=== PATIENT | female | born 1940 | race Caucasian/White ===

== ENCOUNTER → 2017-08-29 13:42 | Outpatient (CLI) | payer MEDICARE, SELFPAY ==
[2017-08-29 16:16] LABS: Alanine Aminotransferase 36 U/L (12-78); Albumin Level 3.8 gm/dL (3.4-5.0); Albumin/Globulin Ratio 1.3 (1.1-1.8); Alkaline Phosphatase 70 U/L (46-116); Anion Gap 13.8 mEq/L (5-15); Aspartate Amino Transferase 39 U/L (15-37); Bilirubin,Total 0.3 mg/dL (0.2-1.0); Blood Urea Nitrogen 34 mg/dL (7-18); Calcium 9.5 mg/dL (8.5-10.1); Carbon Dioxide 27 mmol/L (21.0-32.0); Chloride 100 mmol/L (98-107); Creatinine,Serum 1.33 mg/dL (0.55-1.02); Estimated Glomerular Filt Rate 39 ml/min (>60); GFR (African American) 47 ML/MIN (>60); Glucose 101 mg/dL (74-106); Potassium 4.8 mmoL/L (3.5-5.1); Sodium 136 mmol/L (136-145); Total Protein,Serum 6.8 gm/dL (6.4-8.2)
[2017-08-29 16:46] LABS: Free T4 (Free Thyroxine) 1.19 ng/dl (0.76-1.46); Thyroid Stimulating Hormone 1.65 uIU/ml (0.358-3.740)
== END ==
PROVIDERS: Visit Provider Otolaryngology
DX: E01.0 Iodine-deficiency related diffuse (endemic) goiter (principal)
CPT/HCPCS: 36415; 80053; 84439; 84443; 93005

== ENCOUNTER → 2017-09-08 13:05 | Outpatient (CLI) | payer MEDICARE, SELFPAY ==
--- NOTE | 2017-09-08 13:06 | US_ITS ---
US thyroid HISTORY: ITS.REASON: hx hypothyroid ORDERING PHYSICIAN: Pio Silva MD PATIENT AGE: 76 years FINDINGS: The right lobe is 2.3 x 1.1 x 0.9 cm with heterogeneous echogenicity but no discrete nodule. The left lobe is 2.1 x 0.8 x 1.3 cm with heterogeneous echogenicity but no discrete nodule The isthmus has an unremarkable appearance IMPRESSION: No discrete nodule. Mild heterogeneous echogenicity of the thyroid gland
== END ==
PROVIDERS: Family Provider Family Medicine; PCP Family Medicine; Visit Provider Otolaryngology
DX: E03.9 Hypothyroidism, unspecified (principal); E01.0 Iodine-deficiency related diffuse (endemic) goiter
CPT/HCPCS: 76536

== ENCOUNTER → 2018-03-16 10:26 | Outpatient (CLI) | payer MEDICARE, SELFPAY ==
--- NOTE | 2018-03-16 10:41 | US_ITS ---
US thyroid HISTORY: ITS.REASON: enlarged thyroid ORDERING PHYSICIAN: Pio Silva MD PATIENT AGE: 77 years Comparison: 09/08/2017 FINDINGS: The right lobe is 3.7 x 1.2 x 0.9 cm. There is some heterogeneous echogenicity but no discrete nodule. The left lobe is 3.8 x 1 x 1.0 cm also showing heterogeneous echogenicity without discrete nodule. The isthmus has an unremarkable appearance. IMPRESSION: Heterogeneous echogenicity of the thyroid gland without discrete nodule or enlargement
[2018-03-16 13:12] LABS: Alanine Aminotransferase 19 U/L (12-78); Albumin Level 3.5 gm/dL (3.4-5.0); Albumin/Globulin Ratio 1.2 (1.1-1.8); Alkaline Phosphatase 64 U/L (46-116); Anion Gap 15.5 mEq/L (5-15); Aspartate Amino Transferase 20 U/L (15-37); Bilirubin,Total 0.2 mg/dL (0.2-1.0); Blood Urea Nitrogen 35 mg/dL (7-18); Calcium 8.9 mg/dL (8.5-10.1); Carbon Dioxide 25 mmol/L (21.0-32.0); Chloride 103 mmol/L (98-107); Chol/HDL Ratio 1.8 (1-3.5); Cholesterol 199 mg/dL (140-200); Creatinine,Serum 1.33 mg/dL (0.55-1.02); Estimated Glomerular Filt Rate 39 ml/min (>60); GFR (African American) 47 ML/MIN (>60); Globulin 2.9 gm/dl (1.3-3.2); Glucose 123 mg/dL (74-106); HDL Cholesterol 113 mg/dL (29-89); LDL Cholesterol 55 mg/dL (0-130); Potassium 4.5 mmoL/L (3.5-5.1); Sodium 139 mmol/L (136-145); Total Protein,Serum 6.4 gm/dL (6.4-8.2); Triglycerides 153 mg/dL (30-200); VLDL Cholesterol 31 mg/dL (0-40)
[2018-03-16 13:23] LABS: Free T4 (Free Thyroxine) 1.15 ng/dl (0.76-1.46); Thyroid Stimulating Hormone 1.47 uIU/ml (0.358-3.740)
[2018-03-17 16:13] LABS: Folate 19.2 ng/mL (>3.0)
[2018-03-17 16:15] LABS: Vitamin B12 275 pg/mL (232-1245); Vitamin D 25 Hydroxy 18.5 ng/mL (30.0-100.0)
== END ==
PROVIDERS: PCP Nurse Practitioner; Visit Provider Otolaryngology
DX: E01.0 Iodine-deficiency related diffuse (endemic) goiter (principal); E78.5 Hyperlipidemia, unspecified; I10 Essential (primary) hypertension
CPT/HCPCS: 36415; 76536; 80053; 80061; 82607; 82652; 82746; 84439; 84443

== ENCOUNTER → 2018-03-27 15:08 | Outpatient (CLI) | payer MEDICARE, SELFPAY ==
[2018-03-27 15:51] LABS: Basophils # 0.1 K/mm3 (0-0.2); Basophils % 0.9 % (0.1-2.0); Eosinophils # 0.1 K/mm3 (0.0-0.4); Eosinophils % 1.6 % (0.1-12.0); Hematocrit 35.9 % (37.0-47.0); Hemoglobin 11.5 g/dL (12.2-16.2); Lymphocytes # 3.7 K/mm3 (0.7-4.5); Lymphocytes % 53.8 % (10-50); Mean Corpuscular HGB Conc 32.1 g/dL (31.8-35.4); Mean Corpuscular Hemoglobin 29.4 pg (27.0-31.2); Mean Corpuscular Volume 91.5 fl (81-99); Monocytes # 0.4 K/mm3 (0.1-1.0); Monocytes % 6.2 % (1.7-9.3); Neutrophils # 2.6 K/mm3 (1.8-7.8); Neutrophils % 37.5 % (37.0-80.0); Platelet Count 274 K/mm3 (142-424); Red Blood Count 3.92 M/mm3 (4.20-5.40); Red Cell Distribution Width 13.6 % (11.5-17.5); White Blood Count 6.9 K/mm3 (4.8-10.8)
[2018-03-27 15:56] LABS: MANUAL DIFFERENTIAL MANUAL DIFFERENTIAL (MANUAL DIFF)
[2018-03-27 16:31] LABS: Anion Gap 14.7 mEq/L (5-15); Blood Urea Nitrogen 27 mg/dL (7-18); Carbon Dioxide 26 mmol/L (21.0-32.0); Chloride 101 mmol/L (98-107); Creatinine,Serum 1.15 mg/dL (0.55-1.02); Estimated Glomerular Filt Rate 46 ml/min (>60); GFR (African American) 55 ML/MIN (>60); Glucose 93 mg/dL (74-106); Potassium 4.7 mmoL/L (3.5-5.1); Sodium 137 mmol/L (136-145)
[2018-03-27 19:11] LABS: Eosinophils % 3 % (0-3); Lymphocytes % 33 % (10-50); Monocytes % 2 % (2-9); Neutrophils % 41 % (42-76); Platelet Estimate Normal; RBC Morphology Normal; Total Cells Counted 100
== END ==
PROVIDERS: Visit Provider Otolaryngology
DX: Z01.818 Encounter for other preprocedural examination (principal); L98.9 Disorder of the skin and subcutaneous tissue, unspecified
CPT/HCPCS: 36415; 80048; 85007; 85025; 93005

== ENCOUNTER → 2018-08-15 10:44 | Outpatient (POV) | payer MEDICARE, SELFPAY | PROVIDERS: Visit Provider Dermatology | DX: Z00.00 Encounter for general adult medical examination without abnormal findings (principal) ==

== ENCOUNTER → 2018-08-28 08:01 | Outpatient (CLI) | payer MEDICARE, SELFPAY ==
[2018-08-28 08:03] LABS: Microscopic, Urine URINE MICROSCOPIC (MICROSCOPIC)
[2018-08-28 08:45] LABS: Basophils # 0.1 K/mm3 (0-0.2); Basophils % 0.9 % (0.1-2.0); Eosinophils # 0.3 K/mm3 (0.0-0.4); Eosinophils % 3.7 % (0.1-12.0); Hematocrit 36.6 % (37.0-47.0); Lymphocytes # 3.8 K/mm3 (0.7-4.5); Lymphocytes % 52.9 % (10-50); Mean Corpuscular HGB Conc 32.7 g/dL (31.8-35.4); Mean Corpuscular Hemoglobin 30.5 pg (27.0-31.2); Mean Corpuscular Volume 93.3 fl (81-99); Mean Platelet Volume 8.9 fl (7.4-10.4); Monocytes # 0.5 K/mm3 (0.1-1.0); Monocytes % 6.6 % (1.7-9.3); Neutrophils # 2.6 K/mm3 (1.8-7.8); Neutrophils % 35.8 % (37.0-80.0); Platelet Count 300 K/mm3 (142-424); Red Blood Count 3.92 M/mm3 (4.20-5.40); White Blood Count 7.1 K/mm3 (4.8-10.8)
[2018-08-28 08:49] LABS: MANUAL DIFFERENTIAL MANUAL DIFFERENTIAL (MANUAL DIFF)
[2018-08-28 09:49] LABS: Albumin Level 3.7 gm/dL (3.4-5.0); Blood Urea Nitrogen 31 mg/dL (7-18); Calcium 9.3 mg/dL (8.5-10.1); Carbon Dioxide 28 mmol/L (21.0-32.0); Chloride 103 mmol/L (98-107); Creatinine,Serum 1.25 mg/dL (0.55-1.02); Estimated Glomerular Filt Rate 42 ml/min (>60); GFR (African American) 50 ML/MIN (>60); Glucose 89 mg/dL (74-106); Phosphorous 4.1 mg/dL (2.4-4.9); Sodium 139 mmol/L (136-145)
[2018-08-28 10:19] LABS: Appearance,Urine CLEAR (Clear); Bilirubin,Urine Negative (Negative); Blood, Urine Negative (Negative); Color,Urine YELLOW (Yellow); Eosinophils % 2 % (0-3); Glucose,Urine (UA) Negative (Negative); Ketones,Urine Negative (Negative); Leukocyte Esterase,Urine TRACE (Negative); Lymphocytes % 54 % (10-50); Monocytes % 11 % (2-9); Neutrophils % 31 % (42-76); Nitrate,Urine Negative (Negative); Platelet Estimate Normal; Protein,Urine Negative (Negative); RBC Morphology Normal; Total Cells Counted 100; Urobilinogen,Urine 0.2 EU/dl (0.2)
[2018-08-28 10:33] LABS: Bacteria,Urine Trace /lpf; RBC,Urine Occasional #/hpf (0-3)
[2018-08-28 10:34] LABS: Creatinine,Urine Random 66 mg/dL (20-320)
[2018-08-28 10:49] LABS: Total Protein,Urine Random 5.3 mg/dL (0.0-11.9)
[2018-08-29 10:14] LABS: Vitamin D 25 Hydroxy 48.2 ng/mL (30.0-100.0)
[2018-08-29 13:50] LABS: Parathyroid Hormone Intact 25 pg/mL (15-65)
== END ==
PROVIDERS: Visit Provider Internal Medicine Nephrology
DX: N18.3 Chronic kidney disease, stage 3 (moderate) (principal)
CPT/HCPCS: 36415; 80069; 81001; 82570; 82652; 83970; 84155; 85007; 85025

== ENCOUNTER → 2018-09-04 14:43 | Outpatient (POV) | payer MEDICARE, SELFPAY | PROVIDERS: Visit Provider Internal Medicine Nephrology | DX: Z00.00 Encounter for general adult medical examination without abnormal findings (principal) ==

== ENCOUNTER → 2018-09-05 07:51 | Outpatient (POV) | payer MEDICARE, SELFPAY | PROVIDERS: Visit Provider Dermatology | DX: Z00.00 Encounter for general adult medical examination without abnormal findings (principal) ==

== ENCOUNTER → 2018-10-03 12:29 | Outpatient (CLI) | payer MEDICARE, SELFPAY ==
--- NOTE | 2018-10-03 12:36 | XR_ITS ---
XR hip LT 2-3V w/pelvis HISTORY: ITS.REASON: LT HIP PAIN ORDERING PHYSICIAN: Archie Butts MD PATIENT AGE: 78 years COMPARISON: None FINDINGS: No fracture or dislocation is evident. There are mild osteoarthritic changes of the left hip. Mild osteoarthritic changes are also present involving the SI joints and symphysis pubis. No lytic or blastic change. IMPRESSION: Mild osteoarthritis
--- NOTE | 2018-10-03 12:36 | XR_ITS ---
EXAM: XR lumbar spine min 4V HISTORY: Low back pain ITS.REASON: LT HIP PAIN ORDERING PHYSICIAN: Archie Butts MD PATIENT AGE: 78 years COMPARISON: None FINDINGS: Normal alignment. No fracture or dislocation. No lytic or blastic change. Degenerative disc disease is present from L1 S1 more extensive at L2-L3 and L3-L4. There is straightening of the lumbar lordosis. No fracture or dislocation. Multiple clips overlie the anterior abdomen and there is generalized vascular calcification. Minimal lumbar scoliosis convex left IMPRESSION: Degenerative changes, no acute finding
== END ==
PROVIDERS: PCP Family Medicine; Visit Provider Family Medicine
DX: M25.552 Pain in left hip (principal)
CPT/HCPCS: 72110; 73502

== ENCOUNTER → 2018-12-08 07:13 | Outpatient (CLI) | payer MEDICARE, SELFPAY ==
[2018-12-08 07:15] LABS: Microscopic, Urine URINE MICROSCOPIC (MICROSCOPIC)
[2018-12-08 08:52] LABS: Appearance,Urine CLEAR (Clear); Bilirubin,Urine Negative (Negative); Blood, Urine TRACE-I (Negative); Color,Urine YELLOW (Yellow); Glucose,Urine (UA) Negative (Negative); Ketones,Urine Negative (Negative); Leukocyte Esterase,Urine 2+ (Negative); Nitrate,Urine Negative (Negative); PH,Urine 5.5 (5.0-8.5); Protein,Urine Negative (Negative); Specific Gravity, Urine 1.025 (1.005-1.030); Urobilinogen,Urine 0.2 EU/dl (0.2)
[2018-12-08 08:55] LABS: Basophils # 0.1 K/mm3 (0-0.2); Eosinophils # 0.3 K/mm3 (0.0-0.4); Eosinophils % 4.2 % (0.1-12.0); Hematocrit 36.3 % (37.0-47.0); Hemoglobin 11.7 g/dL (12.2-16.2); Lymphocytes # 3.7 K/mm3 (0.7-4.5); Lymphocytes % 53.9 % (10-50); Mean Corpuscular HGB Conc 32.1 g/dL (31.8-35.4); Mean Corpuscular Hemoglobin 30.1 pg (27.0-31.2); Mean Corpuscular Volume 93.9 fl (81-99); Mean Platelet Volume 9.2 fl (7.4-10.4); Monocytes # 0.5 K/mm3 (0.1-1.0); Monocytes % 7.4 % (1.7-9.3); Neutrophils # 2.3 K/mm3 (1.8-7.8); Neutrophils % 33.5 % (37.0-80.0); Platelet Count 317 K/mm3 (142-424); Red Blood Count 3.87 M/mm3 (4.20-5.40); Red Cell Distribution Width 13.1 % (11.5-17.5); White Blood Count 6.8 K/mm3 (4.8-10.8)
--- NOTE | 2018-12-08 08:57 | XR_ITS ---
XR DEXA axial skeleton HISTORY: ITS.REASON: POST MENOPAUSAL SCREENING ORDERING PHYSICIAN: Keron Hylton PATIENT AGE: 78 years COMPARISON: None FINDINGS: The BMD measured at the Right femoral neck is 1.128 g/cm squared with a T score of 0.6. This is considered Normal according to the World Health Organization criteria. Fracture risk is Low. IMPRESSION: Normal bone density with low fracture risk. Follow-up exam November 2020
[2018-12-08 09:01] LABS: Bacteria,Urine 1+ /lpf; RBC,Urine Occasional #/hpf (0-3); WBC,Urine 20-50 #/hpf (0-3)
[2018-12-08 09:04] LABS: MANUAL DIFFERENTIAL MANUAL DIFFERENTIAL (MANUAL DIFF)
[2018-12-08 09:46] LABS: Creatinine,Urine Random 81 mg/dL (20-320); Total Protein,Urine Random 15.7 mg/dL (0.0-11.9)
[2018-12-08 09:55] LABS: Albumin Level 3.5 gm/dL (3.4-5.0); Anion Gap 14.6 mEq/L (5-15); Blood Urea Nitrogen 34 mg/dL (7-18); Calcium 9.3 mg/dL (8.5-10.1); Carbon Dioxide 26 mmol/L (21.0-32.0); Chloride 105 mmol/L (98-107); Creatinine,Serum 1.22 mg/dL (0.55-1.02); Estimated Glomerular Filt Rate 43 ml/min (>60); GFR (African American) 52 ML/MIN (>60); Glucose 84 mg/dL (74-106); Phosphorous 3.9 mg/dL (2.4-4.9); Potassium 4.6 mmoL/L (3.5-5.1); Sodium 141 mmol/L (136-145)
[2018-12-08 16:55] LABS: Eosinophils % 2 % (0-3); Lymphocytes % 52 % (10-50); Monocytes % 6 % (2-9); Neutrophils % 40 % (42-76); Total Cells Counted 100
[2018-12-08 16:56] LABS: Platelet Estimate Normal; RBC Morphology Normal
== END ==
PROVIDERS: PCP Family Medicine; Visit Provider Internal Medicine Nephrology
DX: N18.3 Chronic kidney disease, stage 3 (moderate) (principal); Z78.0 Asymptomatic menopausal state; R82.90 Unspecified abnormal findings in urine
CPT/HCPCS: 36415; 77080; 80069; 81001; 82570; 84155; 85007; 85025; 87086

== ENCOUNTER → 2019-01-09 08:33 | Outpatient (POV) | payer MEDICARE, SELFPAY | PROVIDERS: Visit Provider Dermatology | DX: Z00.00 Encounter for general adult medical examination without abnormal findings (principal) ==

== ENCOUNTER → 2019-03-09 08:46 | Outpatient (CLI) | payer MEDICARE, SELFPAY ==
--- NOTE | 2019-03-09 08:50 | XR_ITS ---
PROCEDURE: XR SHOULDER LT MIN 2V CLINICAL INDICATION: shoulder pain Posttraumatic pain COMPARISON: No exams were available for comparison FINDINGS: There are mild osteoarthritic changes of the AC joint and glenohumeral joint. No acute fracture or dislocation. IMPRESSION: No acute findings. Dictated by: Farhat Meza MD 03/09/2019 09:28 Electronically signed by Farhat Meza MD in [place] 03/09/2019 09:28
== END ==
PROVIDERS: PCP Family Medicine; Visit Provider Orthopaedic Surgery
DX: M25.512 Pain in left shoulder (principal)
CPT/HCPCS: 73030

== ENCOUNTER → 2019-04-18 08:49 | Outpatient (CLI) | payer MEDICARE, SELFPAY ==
--- NOTE | 2019-04-18 08:52 | US_ITS ---
PROCEDURE: US LIVER CLINICAL INDICATION: ELEVATED LIVER ENZYMES Right upper quadrant pain COMPARISON: No exams were available for comparison FINDINGS: PANCREAS: Unremarkable. No obvious mass or abnormal fluid collection. No ductal dilatation LIVER: No focal liver lesions demonstrated. Homogeneous echogenicity. No intrahepatic biliary ductal dilatation evident. There is appropriate direction of blood flow within a non dilated portal vein RIGHT KIDNEY: Unremarkable. Normal size and echogenicity. No hydronephrosis GALLBLADDER: Prior cholecystectomy. Common bile duct is normal at 4 mm. IMPRESSION: Status post cholecystectomy otherwise negative Dictated by: Farhat Meza MD 04/18/2019 19:03 Electronically signed by Farhat Meza MD in [place] 04/18/2019 19:06
== END ==
PROVIDERS: PCP Family Medicine; Visit Provider Nurse Practitioner Family
DX: R74.8 Abnormal levels of other serum enzymes (principal)
CPT/HCPCS: 76705

== ENCOUNTER → 2019-04-20 14:03 | Outpatient (CLI) | payer MEDICARE, SELFPAY ==
--- NOTE | 2019-04-20 14:03 | MR_ITS ---
PROCEDURE: MR SHOULDER LT WO CON CLINICAL INDICATION: Shoulder Pain Left shoulder pain, injury with pain COMPARISON: XR SHOULDER LT MIN 2V from 03/09/2019 TECHNIQUE: Routine multiplanar multi echo sequences are performed without gadolinium enhancement. FINDINGS: There is complete tear of the supraspinatus tendon with mild retraction of the musculotendinous fibers. Partial tear noted of the infraspinatus tendon with some intact fibers superficially. Tendinopathy/tendinosis involves the subscapularis tendon with possible partial tear. Teres minor tendon is intact. No obvious labral tear. Subarticular cystic changes involve the glenoid. The bicipital tendon is in place. There is a small shoulder joint effusion. There is moderate acromioclavicular arthropathy with mild subacromial stenosis. There is a small amount of fluid in the subacromial region. IMPRESSION: Acromioclavicular arthropathy with subacromial stenosis with complete tear of the supraspinatus tendon, partial tear of the infraspinatus tendon and subscapularis tendon with small shoulder joint effusion and osteoarthritic changes of the glenohumeral joint Dictated by: Farhat Meza MD 04/21/2019 08:11 Electronically signed by Farhat Meza MD in [place] 04/21/2019 08:11
== END ==
PROVIDERS: PCP Family Medicine; Visit Provider Orthopaedic Surgery
DX: M25.512 Pain in left shoulder (principal)
CPT/HCPCS: 73221

== ENCOUNTER 2019-05-24 10:00 | Outpatient (RCR) | payer MEDICARE, SELFPAY ==
--- NOTE | 2019-03-13 11:45 | HMH.OTOPEV ---
OT Inpatient Evaluation Rehab OT Outpatient Eval Start: 03/13/19 11:29 Freq: Status: Active Protocol: Document 03/13/19 11:29 TFRY (Rec: 03/13/19 11:45 TFRY [id number]) Electronically Signed By Salma Floyd OT 03/13/19 11:29 Outpatient Therapy Subjective History Subjective History This is a 78 year old right handed female referred to occuaptional therapy for left shoulder pain. Patient reports that she fell on her left shoulder approximately 6 weeks ago. Chief Complaint Pain Symptom Type Ache,Dull Symptoms Relieved By Prescription Meds Symptoms Aggravated By Physical Activity Prior Functional Limitations None,Dressing,Sleeping Current Functional Limitations Lifting,Housework Symptom Description Constant but Variable Level of pain today (0-10) 1 Pain scale - at its best (0-10) 1 Pain scale - at its worst (0-10) 7 Shoulder/Elbow Eval Shoulder Objective Measurements Palpation Tenderness tenderness shoulder exam standard left tenderness over the bicipital tendon left shoulder exam standard Shoulder ROM Left Shoulder Abduction Active Range of 55 Motion (degrees) Shoulder Abduction Passive Range of 80 Motion (degrees) Shoulder Flexion Active Range of Motion 80 (degrees) Query Text: Shoulder Flexion Passive Range of Motion 130 (degrees) Shoulder External Rotation Active Range 35 of Motion (degrees) Shoulder External Rotation Passive Range 50 of Motion (degrees) Shoulder Internal Rotation Active Range WFL of Motion (degrees) Shoulder Internal Rotation Passive Range 70 of Motion (degrees) pain with active ROM shoulder exam left standard pain with passive ROM shoulder exam left standard decreased ROM shoulder exam standard left Shoulder MMT Shoulder Abduction Strength Grade 3+ Fair+ Shoulder Extension Strength Grade 3+ Fair+ Shoulder Flexion Strength Grade 3+ Fair+ Shoulder Horizontal Abduction Strength 3+ Fair+ Grade Shoulder Horizontal Adduction Strength 3+ Fair+ Grade Shoulder External Rotation Strength 3+ Fair+ Grade Shoulder Internal Rotation Strength 3+ Fair+ Grade Shoulder Strength Patient Testing Sitting Position Shoulder Special Tests Shoulder Empty Can (Supraspinatus) Test Negative Left Shoulder Izquierdo-José Miguel Impingement Positive Left Test
--- NOTE | 2019-04-17 10:59 | HMH.RHREAS ---
Rehab Reassessment Rehab OP Re-assessment Start: 04/17/19 10:45 Freq: Status: Active Protocol: Document 04/17/19 10:45 TFRY (Rec: 04/17/19 10:58 TFRY [id number]) Electronically Signed By Salma Floyd OT 04/17/19 10:45 Rehab Re-assessment Subjective Subjective It is 80% better. Objective Objective Notes Patient seen this date for skilled occupational therapy. See exercise flow sheet for exercises. Reassessment of left shoulder AROM: flexion - 0-155; abduction - 0-105; internal rotation - 0-55; external rotation - WFL. PROM: Flexion - WFL; abduction - WFL. Left shoulder strength - 3+/4- throughout. Patient reports less pain when performing ADL's. Reports pain a 5 at worse in left shoulder; on average 2/3. Assessment Progress Assessment Progressing as Expected Assessment Notes Patient is making progress toward goals and appears to be complaint with HEP. Patient goals met STG's - 6/9 LTG's - 6 Goals Not Met strength and pain Plan Plan Continue occupational therapy working on meeting unmet goals and improving strength and decreasing pain. Frequency of Therapy 2x a week Duration of therapy 4 weeks Time and Billing Re-Eval Time 5 Re-Eval Billing Units 0 PHYSICIAN CERTIFICATION: I certify the specified therapy services for Dianne Mcneal are required, authorized, and reviewed every 30 days.
--- NOTE | 2019-05-24 10:48 | HMH.RHREAS ---
Rehab Reassessment Rehab OP Re-assessment Start: 04/17/19 10:45 Freq: Status: Active Protocol: Document 05/24/19 09:48 BO (Rec: 05/24/19 10:48 BO [id number]) Electronically Signed By Jona Lyn OT 05/24/19 09:48 Rehab Re-assessment Subjective Subjective I go to the doctor on Tuesday. Objective Objective Notes Pt continues to be seen twice a week in order to engage in L shoulder AROM/AAROM/ Strengthening exercises. Pt also received PROM manual stretching in all planes at left shoulder. Pt does receive modalities in order to decrease pain/inflammation. Assessment Progress Assessment Progressing as Expected Assessment Notes Pt reports she does feel she has improved slightly since beginning therapy. Pt's pain at is worst is now a 3/10 and she does have periods of no pain at all. Pt returns to her doctor on the following tuesday to be re-assessed. Current AROM Flex: 140 degrees Abd: 85 degrees ER: 24 degrees IR: 40 degrees Current MMT: Flex: 4- Abd: 3+ ER: 3+ IR: 3+ Patient goals met n/a Goals Not Met AROM, strength, and pain Revised Goals Continue progressing towards assisted goals written on initial evaluation. Plan Plan Continue with OT plan of care at this time. Frequency of Therapy 2x's a week Duration of therapy 4 more weeks Time and Billing Re-Eval Time 15 Re-Eval Billing Units 1 PHYSICIAN CERTIFICATION: I certify the specified therapy services for Dianne Mcneal are required, authorized, and reviewed every 30 days.
== END 2019-05-24 10:05 | disposition home or self-care (01) ==
LOC: OT 10:00
PROVIDERS: Visit Provider Orthopaedic Surgery
DX: M25.512 Pain in left shoulder (principal)
CPT/HCPCS: 97014; 97110; 97140; 97164; 97165; 97168; G0283

== ENCOUNTER → 2019-06-01 07:42 | Outpatient (CLI) | payer MEDICARE, SELFPAY ==
[2019-06-01 08:34] LABS: INR 0.98 (0.9-1.1); Prothrombin Time 10.2 seconds (9.4-11.8)
[2019-06-01 10:45] LABS: Alanine Aminotransferase 23 U/L (12-78); Albumin Level 3.4 gm/dL (3.4-5.0); Albumin/Globulin Ratio 1.3 (1.1-1.8); Alkaline Phosphatase 52 U/L (46-116); Anion Gap 14.4 mEq/L (5-15); Aspartate Amino Transferase 22 U/L (15-37); Bilirubin,Total 0.3 mg/dL (0.2-1.0); Blood Urea Nitrogen 35 mg/dL (7-18); Calcium 8.9 mg/dL (8.5-10.1); Carbon Dioxide 27 mmol/L (21.0-32.0); Chloride 104 mmol/L (98-107); Creatinine,Serum 1.29 mg/dL (0.55-1.02); Estimated Glomerular Filt Rate 40 ml/min (>60); Ferritin 76 ng/mL (8-388); GFR (African American) 48 ML/MIN (>60); Globulin 2.7 gm/dl (1.3-3.2); Glucose 91 mg/dL (74-106); Potassium 4.4 mmoL/L (3.5-5.1); Sodium 141 mmol/L (136-145); Total Protein,Serum 6.1 gm/dL (6.4-8.2)
[2019-06-02 04:08] LABS: Iron 87 ug/dL (27-139); UIBC 263 ug/dL (118-369)
[2019-06-02 09:20] LABS: Ceruloplasmin 23.6 mg/dL (19.0-39.0); Immunoglobulin A, Qn 161 mg/dL (64-422); Immunoglobulin G, Qn 749 mg/dL (700-1600)
[2019-06-02 11:04] LABS: Immunoglobulin M, Qn 78 mg/dL (26-217)
[2019-06-02 11:05] LABS: Iron Saturation 25 % (15-55)
[2019-06-02 18:19] LABS: Actin (Smooth Muscle) Antibody 4 Units (0-19); Deamidated Gliadin Abs, IgA 2 units (0-19); Deamidated Gliadin Abs, IgG 2 units (0-19); Liver-Kidney Microsomal Ab <1.0 Units (0.0-20.0); Mitochondrial (M2) Antibody <20.0 Units (0.0-20.0); Tissue Transglutaminase IgA Ab <2 U/mL (0-3); Tissue Transglutaminase IgG Ab <2 U/mL (0-5)
[2019-06-05 05:12] LABS: ALT (SGPT) P5P 18 IU/L (0-40); AST (SGOT) P5P 28 IU/L (0-40); Alpha 2-Macroglobulins, Qn 193 mg/dL (110-276); Apolipoprotein A-1 249 mg/dL (116-209); Bilirubin, Total 0.2 mg/dL (0.0-1.2); Cholesterol, Total 188 mg/dL (100-199); Fibrosis Score 0.06 (0.00-0.21); GGT 33 IU/L (0-60); Glucose 88 mg/dL (65-99); Haptoglobin 135 mg/dL (42-346); NASH Score 0.25 (0.25); Steatosis Score 0.33 (0.00-0.30); Triglycerides 108 mg/dL (0-149)
[2019-06-05 05:30] LABS: Angiotensin Converting Enzyme <15 U/L (14-82); Endomysial IgA Antibody Negative (Negative)
[2019-06-06 11:56] LABS: Reticulin IgA Antibody Negative titer (Neg:<1:2.5)
[2019-06-07 17:55] LABS: Alpha-1-Antitrypsin 145 mg/dL (101-187)
[2019-06-29 14:01] LABS: Antinuclear Antibodies (ANA) Negative
== END ==
PROVIDERS: Visit Provider Nurse Practitioner Family
DX: R94.5 Abnormal results of liver function studies (principal); R19.4 Change in bowel habit; D64.9 Anemia, unspecified
CPT/HCPCS: 36415; 80053; 81256; 82103; 82104; 82164; 82390; 82728; 82784; 83516; 83540; 83550; 85610; 86038; 86255; 86256; 86376

== ENCOUNTER 2019-07-05 08:30 | Outpatient (RCR) | payer MEDICARE, SELFPAY | END 2019-07-05 08:35 | disposition home or self-care (01) | LOC: OT 08:30 | PROVIDERS: PCP Family Medicine; Visit Provider Orthopaedic Surgery | DX: S46.012A Strain of muscle(s) and tendon(s) of the rotator cuff of left shoulder, initial encounter (principal) | CPT/HCPCS: 97014; 97110; 97140; 97166; G0283 ==

== ENCOUNTER → 2019-08-22 09:11 | Outpatient (CLI) | payer MEDICARE, SELFPAY ==
[2019-08-22 11:14] LABS: Chloride 102 mmol/L (98-107); Sodium 136 mmol/L (136-145)
[2019-08-22 11:16] LABS: Alanine Aminotransferase 19 U/L (12-78); Alkaline Phosphatase 68 U/L (38-126); Aspartate Amino Transferase 29 U/L (14-36); Bilirubin,Total 0.2 mg/dl (0.2-1.3); Blood Urea Nitrogen 37 mg/dl (7-17); Carbon Dioxide 26 mmol/L (22.0-30.0); Estimated Glomerular Filt Rate 40 ml/min (>60); GFR (African American) 48 ML/MIN (>60)
[2019-08-22 11:17] LABS: Albumin/Globulin Ratio 1.7 (1.1-1.8); Calcium 9.7 mg/dl (8.4-10.2); Globulin 2.4 g/dL (1.3-3.2); Glucose 94 mg/dl (74-100); Total Protein,Serum 6.4 g/dl (6.3-8.2)
== END ==
PROVIDERS: Visit Provider Nurse Practitioner Family
DX: R94.5 Abnormal results of liver function studies (principal)
CPT/HCPCS: 36415; 80053

== ENCOUNTER → 2019-09-10 15:36 | Outpatient (CLI) | payer MEDICARE, SELFPAY ==
[2019-09-10 15:43] LABS: Microscopic, Urine URINE MICROSCOPIC (MICROSCOPIC)
[2019-09-10 16:14] LABS: Basophils # 0.1 K/mm3 (0-0.2); Basophils % 0.6 % (0.1-2.0); Eosinophils % 0.5 % (0.1-12.0); Hemoglobin 12.6 g/dL (12.2-16.2); Lymphocytes # 2.2 K/mm3 (0.7-4.5); Lymphocytes % 26.4 % (10-50); Mean Corpuscular HGB Conc 31.6 g/dL (31.8-35.4); Mean Corpuscular Hemoglobin 28.9 pg (27.0-31.2); Mean Corpuscular Volume 91.5 fl (81-99); Mean Platelet Volume 8.7 fl (7.4-10.4); Monocytes # 0.6 K/mm3 (0.1-1.0); Monocytes % 7.6 % (1.7-9.3); Neutrophils # 5.3 K/mm3 (1.8-7.8); Neutrophils % 64.9 % (37.0-80.0); Platelet Count 338 K/mm3 (142-424); Red Blood Count 4.38 M/mm3 (4.20-5.40); White Blood Count 8.2 K/mm3 (4.8-10.8)
[2019-09-10 16:22] LABS: Appearance,Urine CLEAR (Clear); Bilirubin,Urine Negative (Negative); Blood, Urine 1+ (Negative); Color,Urine YELLOW (Yellow); Glucose,Urine (UA) Negative (Negative); Ketones,Urine Negative (Negative); Leukocyte Esterase,Urine Negative (Negative); Nitrate,Urine Negative (Negative); PH,Urine 5.5 (5.0-8.5); Protein,Urine Negative (Negative); Specific Gravity, Urine 1.025 (1.005-1.030); Urobilinogen,Urine 0.2 EU/dl (0.2)
[2019-09-10 17:00] LABS: Bacteria,Urine Trace /lpf; RBC,Urine Occasional #/hpf (0-3)
[2019-09-10 18:47] LABS: Chloride 100 mmol/L (98-107); Potassium 4.1 mmoL/L (3.5-5.1); Sodium 134 mmol/L (136-145)
[2019-09-10 18:49] LABS: Alanine Aminotransferase 328 U/L (12-78); Aspartate Amino Transferase 240 U/L (14-36); Blood Urea Nitrogen 22 mg/dl (7-17); Estimated Glomerular Filt Rate 48 ml/min (>60); GFR (African American) 58 ML/MIN (>60)
[2019-09-10 18:50] LABS: Albumin Level 4.6 g/dl (3.5-5.0); Albumin/Globulin Ratio 1.6 (1.1-1.8); Alkaline Phosphatase 165 U/L (38-126); Anion Gap 13.1 mEq/L (5-15); Bilirubin,Total 0.7 mg/dl (0.2-1.3); Calcium 10.2 mg/dl (8.4-10.2); Carbon Dioxide 25 mmol/L (22.0-30.0); Globulin 2.8 g/dL (1.3-3.2); Glucose 122 mg/dl (74-100); Total Protein,Serum 7.4 g/dl (6.3-8.2)
[2019-09-11 14:44] LABS: Amylase 76 U/L (30-110); Lipase 193 U/L (23-300)
== END ==
PROVIDERS: Family Medicine; Visit Provider Nurse Practitioner Family
DX: R10.11 Right upper quadrant pain (principal); L29.9 Pruritus, unspecified; R74.8 Abnormal levels of other serum enzymes
CPT/HCPCS: 36415; 80053; 81001; 82150; 83690; 85025

== ENCOUNTER → 2019-09-12 10:57 | Outpatient (CLI) | payer MEDICARE, SELFPAY ==
--- NOTE | 2019-09-12 11:03 | CT_ITS ---
PROCEDURE: CT ABDOMEN without and with contrast CLINICAL INDICATION: RUQ PAIN,ELEVATED LIVER ENZYMES Right upper quadrant pain COMPARISON: ABDPELW/O CT ABD PELVIS W/O CONTRAST from 10/20/2013 TECHNIQUE: IV Contrast: 75ML OPTIRAY 350 Oral Contrast none Axial images obtained with sagittal and coronal reformats. All CT scans at the facility use one or more dose reduction, viz: automated exposure control, ma/kV adjustment per patient size (including targeted exams where dose is matched to indication, i.e. head), or iterative reconstruction technique. FINDINGS: LOWER THORAX: There are some mild atelectatic/fibrotic changes in the lung bases. Coronary artery calcifications and/or stents are noted. ABDOMEN & PELVIS: There are post cholecystectomy changes with mild biliary ectasia. The spleen, adrenal glands, and pancreas have an unremarkable appearance. There is a small hiatal hernia. No renal or ureteral calculi evident on the unenhanced images. Postsurgical changes of the anterior abdominal wall. No evidence of appendicitis. No intestinal obstruction or free air. There are postsurgical changes of the stomach with prior gastrojejunostomy. There is a mild amount fluid is present within the stomach. No intestinal obstruction or free air. The pelvis is not included on the exam. There is sclerosis of the SI joints on both sides. 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 It is difficult to assess the degree of stenosis. There is calcific plaque at the ostium of the celiac artery. Moderate stenosis of the SMA of greater than 50 percent is noted IMPRESSION: 1. Prior gastric bypass with gastrojejunostomy. There is a mild amount of fluid in the stomach. 2. 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 There is calcific plaque at this area which precludes visualization of the underlying lumen. There is high-grade stenosis of the ostium of the SMA of greater than [address] angiogram may provide further evaluation the 3. Prior cholecystectomy with mild biliary ectasia sign Dictated by: Farhat Meza MD 09/13/2019 14:33 Electronically signed by Farhat Meza MD in [place] 09/13/2019 14:33
== END ==
PROVIDERS: PCP Family Medicine; Visit Provider Family Medicine
DX: R10.11 Right upper quadrant pain (principal); R74.8 Abnormal levels of other serum enzymes
CPT/HCPCS: 74177; Q9967

== ENCOUNTER → 2019-09-25 10:04 | Outpatient (CLI) | payer MEDICARE, SELFPAY ==
--- NOTE | 2019-09-25 10:12 | CT_ITS ---
Procedure: CT ANGIO ABDOMEN CLINICAL HISTORY: CELIAC ARTERY STENOSIS Abdominal pain, celiac artery stenosis COMPARISON: CT ABDOMEN PELVIS W CON from 09/12/2019 TECHNIQUE: IV Contrast: 100ml Optiray 350 Axial images obtained with sagittal and coronal reformats. All CT scans at the facility use one or more dose reduction, viz: automated exposure control, ma/kV adjustment per patient size (including targeted exams where dose is matched to indication, i.e. head), or iterative reconstruction technique. FINDINGS: Coronary artery calcifications are present. Atherosclerotic changes involve the aortoiliac vessels. No evidence of aneurysm. There is severe stenosis of the ostium of the celiac artery with calcific plaque at this region and poststenotic dilatation. This is a 99 percent stenotic lesion versus occlusive lesion. The moderate stenosis involves the ostium of the superior mesenteric artery 60 percent. There are mild atheromatous changes of the distal aspect of the celiac and SMA with luminal irregularities but no severe stenosis distally. There are 2 right renal arteries. A small right renal arteries noted superiorly with the dominant right renal artery just inferior to this region with no significant stenosis apparent. No significant stenosis of the left renal artery although there is some calcific plaque near the ostium. The The iliac arteries show scattered plaque but no significant stenosis of the common or external iliac arteries. The inferior mesenteric artery is patent. The Non angiography findings: Small hiatal hernia. Prior cholecystectomy with biliary ectasia. Nonspecific bowel gas pattern with some stool it filled loops of small bowel but no significant dilatation. Degenerative changes are present in the lumbar spine.. IMPRESSION: 1. 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 There is post a not dilatation 2. 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
== END ==
PROVIDERS: PCP Family Medicine; Visit Provider Family Medicine
DX: I77.4 Celiac artery compression syndrome (principal)
CPT/HCPCS: 74175; Q9967

== ENCOUNTER 2019-11-15 11:00 | Outpatient (RCR) | payer MEDICARE, SELFPAY ==
--- NOTE | 2019-09-25 13:38 | HMH.PTOPEV ---
PT Outpatient Evaluation Rehab PT Outpatient Evaluation Start: 09/25/19 13:09 Freq: Status: Active Protocol: Document 09/25/19 13:09 CLIFF (Rec: 09/25/19 13:37 CLIFF [id number]) Electronically Signed By Kory Ramirez, PT 09/25/19 13:09 Outpatient Therapy Subjective History Subjective History Pt reports insidious onset L sided LBP beginning ~3 weeks ago, and reports progressed with L LE s/s from L hip to ankle. Pt reports weakness in LLE and pain, reports previous CT scan revealed OA IN THE LUMBAR REGION. Chief Complaint Pain,Stiff,Paresthesia, Weakness Symptom Type Ache,Sharp,Dull Symptoms Relieved By Rest/Positioning,Heat Symptoms Aggravated By Standing,Bending/Stooping, Walking,Lifting Prior Functional Limitations None Current Functional Limitations Lifting,Housework,Standing, Walking Symptom Description Constant but Variable Level of pain today (0-10) 5 Pain scale - at its best (0-10) 5 Pain scale - at its worst (0-10) 9 Lumbopelvic Eval Posture Thoracic Spine Posture Standing Position Flattened Lumbar Spine Posture Standing Position Flattened Assistive device Assistive Devices None / NA Gait Observation General Gait Pattern Observation Antalgic Gait Palapation tenderness left lumbar spinal tenderness Yes: 3/4 paraspinal tenderness Yes: 3/4 buttock tenderness Yes: 3/4 Lumbar/Sacral Palpation Findings Tenderness,Muscle Guarding Accessory Movement L-spine Vertebrae Accessory Movements Central P/A [place] that Elicit Symptoms L3 bilateral L4 bilateral L5 bilateral Range of Motion Lumbar Spine Active Flexion Range of 0-80 Motion (degrees) Lumbar Spine Active Extension Range of 0-10 Motion (degrees) Left Lumbar Spine Lateral Flexion Active 0-20 Range of Motion (degrees) Right Lumbar Spine Lateral Flexion 0-30 Active Range of Motion (degrees) Lumbar Spine ROM Limitations Pain Manual Muscle Test Right Knee Extension Strength Grade 5 Normal Knee Flexion Strength Grade 4 Good Hip Flexion Strength Grade 4 Good Extensor Hallucis Longus Strength Grade 5 Normal Ankle Dorsiflexion Strength Grade 5 Normal Gastronemius/Soleus Strength Grade 5 Normal Left Knee Extension Strength Grade 4 Good Knee Flexion Strength Grade 4- Good- Hip Flexion Strength Grade 4- Good- Extensor
--- NOTE | 2019-10-29 11:00 | HMH.RHREAS ---
Rehab Reassessment Rehab OP Re-assessment Start: 10/29/19 10:50 Freq: Status: Active Protocol: Document 10/29/19 10:51 CLIFF (Rec: 10/29/19 11:00 CLIFF [id number]) Electronically Signed By Kory Ramirez, PT 10/29/19 10:51 Rehab Re-assessment Subjective Subjective PT REPORTS IMPROVED LBP @4/10 ON VAS W/ACTIVITY, AND FEELS 80-90% BETTER OVERALL SINCE I EVAL Objective Objective Notes AROM: L-SPINE FLX 0-80, EXT 0- 15, B SB 0-20 MMT: L HIP FLX 4/5, L KNEE FLX 4/5 TTP: L PIRI MM 2/, L LUMBAR PARA 2/4 Assessment Progress Assessment Progressing as Expected Assessment Notes IMPROVED ROM, STRENGTH, AND TTP Patient goals met STG'S 10/07 LTG'S 05/09 Goals Not Met STG'S 06/09, LTG'S 10/07 Plan Plan PT TO CONT. W/SKILLED P.T. TO MAKE FURTHER IMPROVEMENTS IN AROM, STRENGTH, AND TTP TO ALLOW FOR OPTIMAL FUNCTION Frequency of Therapy 1-2X/WK Duration of therapy 3-4WKS Time and Billing Re-Eval Time 15 Re-Eval Billing Units 0 PHYSICIAN CERTIFICATION: I certify the specified therapy services for Dianne Mojica Withrubin are required, authorized, and reviewed every 30 days.
== END 2019-11-15 11:05 | disposition home or self-care (01) ==
LOC: PT 11:00
PROVIDERS: PCP Family Medicine; Visit Provider Nurse Practitioner Family
DX: M54.32 Sciatica, left side (principal)
CPT/HCPCS: 97010; 97012; 97014; 97035; 97110; 97163; 97164; G0283

== ENCOUNTER → 2019-11-16 10:47 | Outpatient (CLI) | payer MEDICARE, SELFPAY ==
[2019-11-16 14:38] LABS: Coronavirus 19 IgG Antibody Negative (Negative); Coronavirus 19 IgM Antibody Negative (Negative)
== END ==
PROVIDERS: PCP Family Medicine; Visit Provider Nurse Practitioner Family
DX: Z03.818 Encounter for observation for suspected exposure to other biological agents ruled out (principal)
CPT/HCPCS: 86328

== ENCOUNTER → 2019-11-22 07:43 | Outpatient (CLI) | payer MEDICARE, SELFPAY ==
[2019-11-22 09:03] LABS: Basophils # 0.1 K/mm3 (0-0.2); Basophils % 0.7 % (0.1-2.0); Eosinophils # 0.2 K/mm3 (0.0-0.4); Hematocrit 37.5 % (37.0-47.0); Hemoglobin 12.6 g/dL (12.2-16.2); Lymphocytes % 40.1 % (10-50); Mean Corpuscular HGB Conc 33.5 g/dL (31.8-35.4); Mean Corpuscular Hemoglobin 31.2 pg (27.0-31.2); Mean Corpuscular Volume 93.2 fl (81-99); Mean Platelet Volume 9.1 fl (7.4-10.4); Monocytes # 0.5 K/mm3 (0.1-1.0); Monocytes % 7.2 % (1.7-9.3); Neutrophils # 3.7 K/mm3 (1.8-7.8); Platelet Count 276 K/mm3 (142-424); Red Blood Count 4.02 M/mm3 (4.20-5.40); Red Cell Distribution Width 13.1 % (11.5-17.5); White Blood Count 7.5 K/mm3 (4.8-10.8)
[2019-11-22 09:13] LABS: Prothrombin Time 10.3 seconds (9.4-11.8)
[2019-11-22 14:33] LABS: Chloride 102 mmol/L (98-107); Potassium 4.6 mmoL/L (3.5-5.1); Sodium 139 mmol/L (136-145)
[2019-11-22 14:35] LABS: Alanine Aminotransferase 19 U/L (12-78); Aspartate Amino Transferase 32 U/L (14-36); Blood Urea Nitrogen 31 mg/dl (7-17); Estimated Glomerular Filt Rate 48 ml/min (>60); GFR (African American) 58 ML/MIN (>60)
[2019-11-22 14:36] LABS: Albumin Level 4.1 g/dl (3.5-5.0); Albumin/Globulin Ratio 1.7 (1.1-1.8); Alkaline Phosphatase 58 U/L (38-126); Anion Gap 13.6 mEq/L (5-15); Bilirubin,Total 0.3 mg/dl (0.2-1.3); Calcium 9.6 mg/dl (8.4-10.2); Carbon Dioxide 28 mmol/L (22.0-30.0); Globulin 2.4 g/dL (1.3-3.2); Glucose 95 mg/dl (74-100); Total Protein,Serum 6.5 g/dl (6.3-8.2)
[2019-11-22 15:11] LABS: Ferritin 34.3 ng/ml (11.1-264)
== END ==
PROVIDERS: Visit Provider Internal Medicine
DX: K55.9 Vascular disorder of intestine, unspecified (principal); R79.89 Other specified abnormal findings of blood chemistry
CPT/HCPCS: 36415; 80053; 82728; 85025; 85610

== ENCOUNTER → 2019-12-05 08:53 | Outpatient (CLI) | payer MEDICARE, SELFPAY ==
--- NOTE | 2019-12-05 08:59 | MR_ITS ---
PROCEDURE: MR ABDOMEN WO/W CON CLINICAL INDICATION: Pt has had an increase in liver enzymes. Gb removed x6yrs go. Episodes of flue like symptoms and itching. Nausia, vomiting, and diarrhea. [id number]. 15ml prohance given. Lot: [id number] exp: Oct 2021 bun: 31 cre: 1.1 gfr: [address] 09-12-19 COMPARISON: CT CT ANGIO ABDOMEN from 09/25/2019 TECHNIQUE: Routine multiplanar multi echo sequences are performed without and with gadolinium enhancement.15ml prohance given. Lot: [id number] exp: Oct 2021 bun: 31 cre: 1.1 gfr: [address] 09-12-19. MRCP images also performed FINDINGS: Status post cholecystectomy. The liver, spleen, pancreas, and adrenal glands have an unremarkable appearance. Unremarkable appearing kidneys. No enhancing lesions. There has been a prior cholecystectomy. Status post cholecystectomy. There is mild dilatation of the common hepatic duct measuring up to 9.5 mm. There has been a prior cholecystectomy with a long cystic duct. The cystic duct joins the common hepatic duct distally. There are filling defects within the distal aspect of the cystic duct and within the distal common bile duct consistent with choledocholithiasis. Pancreatic duct is normal in caliber. IMPRESSION: Prior cholecystectomy. The cystic duct is long and inserts distally on the common hepatic duct with multiple filling defects of this distal aspect of the cystic duct and common bile duct consistent with stones within the cystic duct and choledocholithiasis with intra and extrahepatic biliary ductal dilatation Dictated b Farhat Meza MD 12/10/2019 08:52 Farhat Meza MD in [place] 12/10/2019 08:52
== END ==
PROVIDERS: PCP Family Medicine; Visit Provider Internal Medicine
DX: K55.9 Vascular disorder of intestine, unspecified (principal)
CPT/HCPCS: 74183; 76376; A9576

== ENCOUNTER → 2020-02-27 09:55 | Outpatient (CLI) | payer MEDICARE, SELFPAY ==
[2020-02-27 10:00] LABS: Microscopic, Urine URINE MICROSCOPIC (MICROSCOPIC)
[2020-02-27 10:38] LABS: Creatinine,Urine Random 80 mg/dL (Not Estab.)
[2020-02-27 10:47] LABS: Basophils # 0.1 K/mm3 (0-0.2); Basophils % 0.5 % (0.1-2.0); Eosinophils # 0.4 K/mm3 (0.0-0.4); Eosinophils % 3.3 % (0.1-12.0); Hematocrit 40.4 % (37.0-47.0); Hemoglobin 13.2 g/dL (12.2-16.2); Lymphocytes # 3.9 K/mm3 (0.7-4.5); Lymphocytes % 36.5 % (10-50); Mean Corpuscular HGB Conc 32.6 g/dL (31.8-35.4); Mean Corpuscular Hemoglobin 29.9 pg (27.0-31.2); Mean Corpuscular Volume 91.7 fl (81-99); Monocytes # 0.9 K/mm3 (0.1-1.0); Monocytes % 8.5 % (1.7-9.3); Neutrophils # 5.5 K/mm3 (1.8-7.8); Neutrophils % 51.2 % (37.0-80.0); Platelet Count 303 K/mm3 (142-424); Red Cell Distribution Width 13.8 % (11.5-17.5); White Blood Count 10.7 K/mm3 (4.8-10.8)
[2020-02-27 11:00] LABS: Chloride 103 mmol/L (98-107); Potassium 4.2 mmoL/L (3.5-5.1); Sodium 138 mmol/L (136-145)
[2020-02-27 11:01] LABS: Albumin Level 4.2 g/dl (3.5-5.0)
[2020-02-27 11:02] LABS: Appearance,Urine CLEAR (Clear); Bilirubin,Urine Negative (Negative); Blood, Urine Negative (Negative); Color,Urine YELLOW (Yellow); Glucose,Urine (UA) Negative (Negative); Ketones,Urine Negative (Negative); Leukocyte Esterase,Urine TRACE (Negative); Nitrate,Urine Negative (Negative); PH,Urine 5.5 (5.0-8.5); Protein,Urine Negative (Negative); Urobilinogen,Urine 0.2 EU/dl (0.2)
[2020-02-27 11:03] LABS: Anion Gap 14.2 mEq/L (5-15); Blood Urea Nitrogen 28 mg/dl (7-17); Carbon Dioxide 25 mmol/L (22.0-30.0); Estimated Glomerular Filt Rate 48 ml/min (>60); GFR (African American) 58 ML/MIN (>60); Phosphorous 3.6 mg/dl (2.5-4.5)
[2020-02-27 11:04] LABS: Calcium 9.9 mg/dl (8.4-10.2); Glucose 108 mg/dl (74-100)
[2020-02-27 11:23] LABS: 25-OH Vitamin D, Total 34.3 ng/mL (30-100)
[2020-02-27 11:43] LABS: Bacteria,Urine 2+ /lpf; RBC,Urine Occasional #/hpf (0-3)
== END ==
PROVIDERS: Visit Provider Internal Medicine Nephrology
DX: N18.30 Chronic kidney disease, stage 3 unspecified (principal); E55.9 Vitamin D deficiency, unspecified; R82.90 Unspecified abnormal findings in urine
CPT/HCPCS: 36415; 80069; 81001; 82306; 82570; 84155; 85025; 87086

== ENCOUNTER → 2020-03-03 10:21 | Outpatient (POV) | payer MEDICARE, SELFPAY | PROVIDERS: Visit Provider Internal Medicine Nephrology | DX: Z00.00 Encounter for general adult medical examination without abnormal findings (principal) ==

== ENCOUNTER → 2020-03-21 07:35 | Outpatient (CLI) | payer MEDICARE, SELFPAY ==
[2020-03-21 10:11] LABS: Chol/HDL Ratio 1.8 (1-3.5); Cholesterol 187 mg/dl (140-200); HDL Cholesterol 105 mg/dl (40-60); Triglycerides 138 mg/dl (30-150); VLDL Cholesterol 28 mg/dL (0-40)
[2020-03-21 10:25] LABS: Direct LDL Cholesterol 64.06 mg/dL (100-129)
== END ==
PROVIDERS: PCP Family Medicine; Visit Provider Nurse Practitioner Acute Care
DX: E78.2 Mixed hyperlipidemia (principal)
CPT/HCPCS: 36415; 80061

== ENCOUNTER → 2020-04-04 08:18 | Outpatient (CLI) | payer MEDICARE, SELFPAY ==
--- NOTE | 2020-04-04 08:21 | MM_ITS ---
PROCEDURE: MM DIG SCREENING MAMM BI W/CAD Referring Doctor: Archie Butts Patient Age:79Y CLINICAL INDICATION: SCREENING COMPARISON: MG MY Digital Screen BILAT from 03/18/2017 MG MY Digital Screen BILAT from 03/20/2018 MG MY Digital Screen BILAT from 04/09/2019 AWAITING PRIOR FILMS FROM [facility] TECHNIQUE: Standard CC and MLO images were obtained. R2 CAD reviewed. Bilateral digital breast tomosynthesis included. Axillary CC view both breast FINDINGS: Low-density breast with diffuse fatty replacement. (mammography is most optimal screening tool in breast of this character) Stable bilateral mammogram with no dominant or suspicious mass. There is scattered calcifications in both breast but no area of significant concern. Right breast: No significant findings. Few small benign spherical calcifications not of concern Left breast: Dense somewhat linear coarse calcifications towards medial left breast most likely reflect benign secretory calcifications and can be followed in 1 year IMPRESSION: . Stable bilateral mammogram with no significant new findings. Generalized fatty replacement/low-density breast Routine follow-up recommended BI-RAD Category: 2 Benign Finding(s) FOLLOW-UP: 1YR 1 Year Follow-up (A letter has been sent to the patient regarding results of the study.) Dictated by: Asaf Webber MD 04/11/2020 10:31 Asaf Webber MD in [place] 04/11/2020 10:31
--- NOTE | 2020-04-04 08:21 | XR_ITS ---
PROCEDURE: XR DEXA AXIAL SKELETON CLINICAL HISTORY: POST MENOPAUSAL COMPARISON: No exams were available for comparison FINDINGS: The right hip BMD is 0.952 with a T-score of 0.9. The left hip BMD is 0.920 with a T-score of 0.6. The lumbar spine BMD is with a T-score of . Radius 1/3 is 0.541 with T-score -2.6 IMPRESSION: This patient is considered osteoporotic according to the World Health Organization criteria. Fracture risk is high. Treatment is advised. Based on these results a follow-up exam is recommended in 2 year. Dictated by: Farhat Meza MD 04/04/2020 18:06 Farhat Meza MD in [place] 04/04/2020 18:06
== END ==
PROVIDERS: PCP Family Medicine; Visit Provider Family Medicine
DX: Z12.31 Encounter for screening mammogram for malignant neoplasm of breast (principal); Z13.820 Encounter for screening for osteoporosis; Z78.0 Asymptomatic menopausal state
CPT/HCPCS: 77063; 77067; 77080

== ENCOUNTER → 2020-08-02 15:45 | Outpatient (CLI) | payer MEDICARE, SELFPAY ==
[2020-08-02 15:56] LABS: Adenovirus F 40/41, stool Not Detected (NotDetected); Astrovirus Not Detected (NotDetected); Campylobacter Not Detected (NotDetected); Clostridium Difficile A/B, PCR Not Detected (NotDetected); Cryptosporidium Not Detected (NotDetected); Cyclospora Cayetanesis Not Detected (NotDetected); Entamoeba histolytica Not Detected (NotDetected); Enteroaggregative E coli Not Detected (NotDetected); Enteropathogenic E coli Not Detected (NotDetected); Enterotoxigenic E coli Not Detected (NotDetected); Giardia lamblia Not Detected (NotDetected); Norovirus Not Detected (NotDetected); Plesimonas Shigalloides, PCR Not Detected (NotDetected); Rotavirus A Not Detected (NotDetected); Salmonella, PCR Not Detected (NotDetected); Sapovirus Not Detected (NotDetected); Shiga-like toxin E coli Not Detected (NotDetected); Shigella Enterovasive E coli Not Detected (NotDetected); Vibrio Cholerae Not Detected (NotDetected); Vibrio, PCR Not Detected (NotDetected); Yersinia Entercolitica, PCR Not Detected (NotDetected)
== END ==
PROVIDERS: Visit Provider Nurse Practitioner Family
DX: R10.32 Left lower quadrant pain (principal); R19.7 Diarrhea, unspecified
CPT/HCPCS: 87045; 87507

== ENCOUNTER → 2020-11-27 13:41 | Outpatient (CLI) | payer MEDICARE, SELFPAY ==
[2020-11-27 14:24] LABS: Chloride 103 mmol/L (98-107); Sodium 137 mmol/L (136-145)
[2020-11-27 14:25] LABS: Albumin Level 3.9 g/dl (3.5-5.0); Potassium 4.6 mmoL/L (3.5-5.1)
[2020-11-27 14:27] LABS: Blood Urea Nitrogen 36 mg/dl (7-17); Estimated Glomerular Filt Rate 36 ml/min (>60); GFR (African American) 44 ML/MIN (>60)
[2020-11-27 14:28] LABS: Anion Gap 10.6 mEq/L (5-15); Calcium 9.1 mg/dl (8.4-10.2); Carbon Dioxide 28 mmol/L (22.0-30.0); Glucose 101 mg/dl (74-100); Phosphorous 3.4 mg/dl (2.5-4.5)
[2020-11-27 15:38] LABS: 25-OH Vitamin D, Total 20.4 ng/mL (30-100)
[2020-12-02 00:07] LABS: Tandem-R Ostase 8.8 ug/L (.)
[2020-12-02 19:15] LABS: C-Telopeptide Serum 415 pg/mL (.)
== END ==
PROVIDERS: Visit Provider Internal Medicine Nephrology
DX: N18.30 Chronic kidney disease, stage 3 unspecified (principal); E55.9 Vitamin D deficiency, unspecified
CPT/HCPCS: 36415; 80069; 82306; 82523; 84080

== ENCOUNTER → 2020-12-29 15:15 | Outpatient (POV) | payer MEDICARE, SELFPAY | PROVIDERS: Visit Provider Internal Medicine Nephrology | DX: Z00.00 Encounter for general adult medical examination without abnormal findings (principal) ==

== ENCOUNTER → 2021-02-09 13:05 | Outpatient (CLI) | payer MEDICARE, SELFPAY ==
[2021-02-09 14:06] LABS: Blood Urea Nitrogen 29 mg/dl (7-17); Estimated Glomerular Filt Rate 43 ml/min (>60); GFR (African American) 52 ML/MIN (>60)
== END ==
PROVIDERS: Visit Provider Thoracic Surgery (Cardiothoracic Vascular Surgery)
DX: K55.1 Chronic vascular disorders of intestine (principal)
CPT/HCPCS: 36415; 82565; 84520

== ENCOUNTER → 2021-02-10 08:52 | Outpatient (CLI) | payer MEDICARE, SELFPAY ==
--- NOTE | 2021-02-10 08:55 | CT_ITS ---
Procedure: CT ANGIO ABDOMEN PELVIS CLINICAL HISTORY: SUPERIOR MESENTERIC ARTERY STENOSIS COMPARISON: CT CT ANGIO ABDOMEN from 09/25/2019 TECHNIQUE: IV Contrast: 100ml Isovue 370 Axial images obtained with sagittal and coronal reformats. All CT scans at the facility use one or more dose reduction, viz: automated exposure control, ma/kV adjustment per patient size (including targeted exams where dose is matched to indication, i.e. head), or iterative reconstruction technique. FINDINGS: There is less than optimal arterial opacification. There remains severe stenosis of ostium celiac artery. There remains moderate stenosis of the ostium of the superior mesenteric artery. The DAVID is patent. Calcific plaque is present at the ostium of both renal arteries. Pneumobilia. Prior cholecystectomy. Prior gastric bypass. Postsurgical changes anterior abdominal wall. Nonspecific bowel gas pattern. No evidence of aortic aneurysm. Degenerative changes lumbar spine. Luminal irregularities once again noted involving the distal SMA but no occlusive change apparent. Prior hysterectomy IMPRESSION: No change in the severe ostial stenosis of the celiac artery and moderate stenosis of the proximal aspect of the SMA. Pneumobilia which could be due to prior biliary surgical procedure or manipulation. Dictated by: Farhat Meza MD 02/16/2021 10:14 Farhat Meza MD in [place] 02/16/2021 10:14
== END ==
PROVIDERS: PCP Family Medicine; Visit Provider Thoracic Surgery (Cardiothoracic Vascular Surgery)
DX: K55.1 Chronic vascular disorders of intestine (principal)
CPT/HCPCS: 74174; Q9967

== ENCOUNTER → 2021-04-03 13:01 | Outpatient (CLI) | payer MEDICARE, SELFPAY ==
--- NOTE | 2021-04-03 13:03 | MM_ITS ---
PROCEDURE INFORMATION: Exam: MG Bilateral Screening 3D Mammography Exam date and time: 04/03/2021 1:03 PM Age: 80 years old Clinical indication: Encounter for screening mammogram for malignant neoplasm of breast TECHNIQUE: Imaging protocol: Bilateral screening tomosynthesis and 2D mammography including computer-aided detection (CAD) when performed. COMPARISON: 1. MG MM DIG SCREENING MAMM BI W/CAD 04/04/2020 8:24 AM 2. MG MY Digital Screen BILAT 04/09/2019 10:40 AM FINDINGS: MAMMOGRAPHY: Breast composition: The breasts are almost entirely fatty. Mass: None. Architectural distortion: None. Calcifications: No suspicious calcifications. Asymmetric density: None. Skin thickening: None. Axillary adenopathy: None. IMPRESSION: No mammographic evidence of malignancy. Annual screening is recommended unless otherwise clinically indicated. ASSESSMENT: BI-RADS Category 1: Negative
== END ==
PROVIDERS: PCP Family Medicine; Visit Provider Family Medicine
DX: Z12.31 Encounter for screening mammogram for malignant neoplasm of breast (principal)
CPT/HCPCS: 77063; 77067

== ENCOUNTER 2021-05-01 11:43 | Emergency (ER) | payer MEDICARE, SELFPAY ==
[2021-05-01 13:35] VITALS: BP 148/68; PULSE 89; RESP 19; TEMP 37; O2SAT 98; BMI 30.7
[2021-05-01 13:45] LABS: Apearance,Urine Clear (Clear); Bilirubin,Urine Negative (Negative); Blood, Urine Negative (Negative); Color,Urine Yellow (Yellow); Glucose,Urine (UA) Negative (Negative); Ketones,Urine Negative (Negative); Protein,Urine Negative (Negative); Specific Gravity, Urine 1.025 (1.005-1.030); UTC Leukocyte Esterase,Urine 1+ (Negative); UTC Nitrate,Urine Negative (Negative); Urobilinogen,Urine 0.2 EU/dl (0.2)
--- NOTE | 2021-05-01 14:03 | HMH.EDUTC ---
[facility] [place] Clinical Impression: UTI (urinary tract infection) Qualifiers: Urinary tract infection type: site unspecified Hematuria presence: with hematuria Qualified Code(s): N39.0 - Urinary tract infection, site not specified Disposition: Home, Self-Care Condition on Discharge: Good Instructions: Urinary Tract Infection, Urine Culture, DI for Urinary Tract Infection (UTI) Additional Instructions: Drink plenty of fluids. Take tylenol or ibuprofen for pain or fever. Take the medications as directed. Follow up with your regular doctor. GO TO THE ER FOR ANY WORSENING SYMPTOMS Throw your tooth brush away and get a new one. The pyridium will make your urine turn orange, this is an expected side effect. It will stain your clothes if it comes into contact with them. Prescriptions: Nitrofurantoin Monohyd/M-Cryst [Macrobid 100 mg Capsule] 100 mg PO BID 5 Days #10 cap Transmission Status: Received by [facility] #[id number] Phenazopyridine HCl [Pyridium 200mg Tablet] 200 pow PO TID #6 tab Transmission Status: Received by [facility] #[id number] Referrals: Archie Butts MD [Primary Care Provider] - Time of Disposition: 14:22 Medical Decision Making - Medical Records Medical records reviewed: No: I reviewed the patient's medical records. - Doni Inquiry Pt receiving controlled substance: No Vital Signs: 05/01/21 13:35 05/01/21 14:27 Temperature 98.6 F 98.6 F Temperature Source Oral Pulse Rate 89 Pulse Rate [Right Brachial] 89 Respiratory Rate 19 19 Blood Pressure 148/68 H Blood Pressure [Right Arm] 148/68 H Blood Pressure Mean [Right Arm] 94 Blood Pressure Source [Right Arm] Automatic Cuff Blood Pressure Position [Right Arm] Sitting 02 Sat by Pulse Oximetry 98 Oxygen Delivery Method Room Air - Lab Data Lab results reviewed: Yes: I reviewed the patient's lab results. Lab Results 05/01/21 13:40: Urine Color Yellow, Urine Appearance Clear, Urine pH 5.0, Ur Specific [place] 1.025, Urine Protein Negative, Urine Glucose (UA) Negative, Urine Ketones Negative, Urine Blood Negative, Urine Nitrate Negative, Urine Bilirubin Negative, Urine Urobilinogen 0.2, Ur Leukocyte Esterase 1+ A Orders (Tests/Meds): ORDERS Category Date Time Status Urine Culture Stat Micro 05/01/21 13:35 Received [facility] [place] H[place] - General Stated complaint: possible UTI Time Seen by Provider: 05/01/21 14:03 Mode of Arrival: Ambulatory Source of Information: Patient Limitations: No Limitations Description of Symptoms (Recalled from Triage Doc. by RN): PATIENT C/O POSSIBLE UTI AND LEFT EAR PAIN HEENT Symptoms (Recalled from RN notes): Yes Resp Symptoms (Recalled from RN notes): No Skin Symptoms (Recalled from RN notes): No MS Symptoms (Recalled from RN notes): No Functional Status (Recalled from RN notes): WNL - History of Present Illness Provider Complaint: She states that for the past 3 days she has had low back pain and lower abdominal discomfort. She has urinary frequency and burning too. She has a history of interstitial cystitis, but she states that she gets actual infections a lot too. She denies any fever, chills, n/v/d. - Related Data Home Medications Medication Instructions Recorded Confirmed aspirin 81 mg tablet,delayed 81 mg PO DAILY tab 08/16/17 05/01/21 release fenofibrate nanocrystallized 145 145 mg PO DAILY tab 08/16/17 05/01/21 mg tablet levothyroxine 75 mcg capsule 75 mcg PO DAILY cap 08/16/17 05/01/21 lisinopril 30 mg tablet 30 mg PO DAILY tab 08/16/17 05/01/21 nitroglycerin 0.6 mg sublingual 0.6 mg SUBLINGUAL Q5M PRN 08/16/17 05/01/21 tablet pantoprazole 40 mg tablet,delayed 40 mg PO QAM 08/16/17 05/01/21 release polyethylene glycol 3350 17 17 g PO Q10M 08/16/17 05/01/21 gram/dose oral powder verapamil 120 mg 24 hr 120 mg PO DAILY cap 08/16/17 05/01/21 capsule,extended release Tramadol HCl [Ultram 50mg 50 mg PO DAILY 09/19/17
[2021-05-01 14:27] VITALS: BP 148/68; PULSE 89; RESP 19; TEMP 37; O2SAT 98
== END 2021-05-01 14:28 | disposition home or self-care (01) ==
PROVIDERS: Emergency Provider Nurse Practitioner Family; PCP Family Medicine
DX: N30.00 Acute cystitis without hematuria (principal); I10 Essential (primary) hypertension; I25.2 Old myocardial infarction; E78.5 Hyperlipidemia, unspecified; Z88.0 Allergy status to penicillin; Z88.2 Allergy status to sulfonamides; Z88.5 Allergy status to narcotic agent; Z88.8 Allergy status to other drugs, medicaments and biological substances; Z79.899 Other long term (current) drug therapy
CPT/HCPCS: G0463; 81003; 87086; 87088; 87186; 99202

== ENCOUNTER → 2021-05-02 09:33 | Outpatient (CLI) | payer MEDICARE, SELFPAY | PROVIDERS: Visit Provider Surgery | DX: Z01.812 Encounter for preprocedural laboratory examination (principal); Z11.52 Encounter for screening for COVID-19; Z12.11 Encounter for screening for malignant neoplasm of colon | CPT/HCPCS: C9803; U0003; U0005 ==

== ENCOUNTER 2021-05-05 08:21 | Day surgery (SDC) | payer MEDICARE, SELFPAY ==
[2021-05-01 09:46] VITALS: BMI 30.7
[2021-05-05 08:44] VITALS: BP 132/63; PULSE 84; RESP 18; TEMP 36.4; O2SAT 96
[2021-05-05 09:09] VITALS: O2SAT 98
[2021-05-05 09:47] VITALS: BP 88/47; PULSE 99; RESP 18; TEMP 36.7; O2SAT 90
--- NOTE | 2021-05-05 09:48 | HMH.SCOPE ---
- Procedure: Date: 05/05/21 Patient Date of :: 1940 Procedure Performed:: Colonoscopy with polypectomy Indications:: History of colon polyps Performing Provider:: Dandy Clark MD Referring Provider:: . Sedation:: Monitored anesthesia care Procedure:: After informed consent was obtained the patient was taken to the endoscopy suite. Sedation ensued after the patient was transferred to the left lateral decubitus position. Pulse, blood pressure, and oxygen saturation were monitored throughout the procedure. Digital rectal exam revealed no significant abnormality. The colonoscope was placed in position. The entire colon was evaluated. The colonoscope was carefully removed and the patient was transferred to recovery in stable condition. Please see findings and specimens below for detail. Findings:: Bowel preparation relatively fair Fairly significant lack of relaxation Moderate tortuosity Hemorrhoidal tag/cushions Sigmoid diverticulosis Multiple polyps (see specimens) Specimens:: Adjacent right colon polyps Hepatic flexure polyp (snare) Distal right colon polyp (snare) Lobulated sessile 8 mm polyp and adjacent polyp of the transverse colon (snare) Recommendations:: Timing of repeat colonoscopy is pending pathology but will likely be around 2-3 years secondary to limitations in visualization and size/nature/number of polyps. Complications:: No immediate Estimated blood obtained (mL): 1
[2021-05-05 09:57] VITALS: BP 93/50; PULSE 74; RESP 18; O2SAT 93
[2021-05-05 10:08] VITALS: BP 103/52; PULSE 87; RESP 18; O2SAT 94
[2021-05-05 10:17] VITALS: BP 116/59; PULSE 80; RESP 18; O2SAT 96
--- NOTE | 2021-05-05 11:08 | P.PN_ITS ---
[facility] Anesthesia Checklist - Patient Identification Patient Identification: Arm Band, Verbal (Name & ) - Structural Data Admitted From: Home Planned Operative Procedure/s: Colonoscopy Consent for Planned Operative Procedure(s) Verified: Yes Verified Documents: Surgical Consent - NPO Status Verified Time NPO: 00:00 - Additional verifications Anesthesia Reactions: No Hx Blood Transfusions: No Blood Transfusion Reaction: No - Cardiovascular Assessment Heart Sounds: S1 & S2 Pulse Rhythm: Regular - Airway Assessment C-Spine Mobility Assessed: Yes TMJ Mobility Assessed: Yes - Neurological Assessment Level of Consciousness: Awake, Alert, Appropriate - Anesthesia Plan Anesthesia Risk discussed: Yes Anesthesia Type: General [facility] History Medical History: Reports:: Asthma, Cancer (skin), Hyperlipidemia, Hypertension, Myocardial Infarction, Renal Disease, Ulcer Denies:: Diabetes Mellitus Type 1, Diabetes Mellitus Type 2, Internal Pacemaker, MRSA, Seizures *Have you ever received a pneumonia vaccine?: No *Have you received a flu vaccine this season?: Yes Other Medical History: Reports: Arthritis, Thyroid Disease. Denies: Blood Transfusion Reaction Anesthesia experience/problems:: none Laterality Cases: Right: Arthroscopy Shoulder, Bilateral: Other Other Surgeries: Yes: Bariatric Surgery, Cancer Surgery, Cardiac Catheterization, Cholecystectomy, Colonoscopy, Hysterectomy-Total, Skin Cancer Excision. No: Pacemaker Amputation: No Fractures: Yes - *Social History Last grade of school completed: Advanced degree Smoking Status: Never smoker Alcohol Intake: never Substance Use Type: denies use *Occupational Status:: retired Housing: house Household Members: none *Travel in the last 8 weeks: None Family Hx:: Cancer, Coronary Artery Disease, Diabetes, Heart Attack, Hyperlipidemia, Hypertension, Kidney Disease, Stroke, Thyroid Disorder
== END 2021-05-05 10:30 | disposition home or self-care (01) ==
LOC: OUTP 08:22
PROVIDERS: PCP Family Medicine; Visit Provider Surgery
PROC: 0DJD8ZZ Inspection of Lower Intestinal Tract, Via Natural or Artificial Opening Endoscopic (ICD-10-PCS; principal; 2021-05-05 09:30)
DX: Z12.11 Encounter for screening for malignant neoplasm of colon (principal); K63.5 Polyp of colon; K57.32 Diverticulitis of large intestine without perforation or abscess without bleeding; K64.0 First degree hemorrhoids; K56.2 Volvulus; K58.9 Irritable bowel syndrome, unspecified; J45.909 Unspecified asthma, uncomplicated; E78.5 Hyperlipidemia, unspecified; I10 Essential (primary) hypertension; I25.2 Old myocardial infarction; N28.9 Disorder of kidney and ureter, unspecified; Z85.828 Personal history of other malignant neoplasm of skin
CPT/HCPCS: 45385; 88305

== ENCOUNTER → 2021-06-29 08:39 | Outpatient (CLI) | payer MEDICARE, SELFPAY ==
[2021-06-29 09:55] LABS: Chloride 100 mmol/L (98-107); Sodium 133 mmol/L (136-145)
[2021-06-29 09:56] LABS: Albumin Level 3.9 g/dl (3.5-5.0); Potassium 3.9 mmoL/L (3.5-5.1)
[2021-06-29 09:58] LABS: Anion Gap 10.9 mEq/L (5-15); Blood Urea Nitrogen 32 mg/dl (7-17); Carbon Dioxide 26 mmol/L (22.0-30.0); Estimated Glomerular Filt Rate 39 ml/min (>60); GFR (African American) 48 ML/MIN (>60)
[2021-06-29 09:59] LABS: Calcium 8.1 mg/dl (8.4-10.2); Glucose 95 mg/dl (74-100); Phosphorous 3.7 mg/dl (2.5-4.5)
[2021-06-29 11:26] LABS: 25-OH Vitamin D, Total 35.5 ng/mL (30-100)
[2021-07-02 12:19] LABS: Tandem-R Ostase 8.3 ug/L (.)
[2021-07-04 00:07] LABS: C-Telopeptide Serum 151 pg/mL (.)
== END ==
PROVIDERS: Visit Provider Internal Medicine Nephrology
DX: N18.32 Chronic kidney disease, stage 3b (principal); Z79.899 Other long term (current) drug therapy
CPT/HCPCS: 36415; 80069; 82306; 82523; 84080

== ENCOUNTER → 2021-07-06 08:31 | Outpatient (POV) | payer MEDICARE, SELFPAY | PROVIDERS: Visit Provider Internal Medicine Nephrology | DX: Z00.00 Encounter for general adult medical examination without abnormal findings (principal) ==

== ENCOUNTER → 2021-07-28 09:02 | Outpatient (POV) | payer MEDICARE, SELFPAY | PROVIDERS: Visit Provider Dermatology | DX: Z00.00 Encounter for general adult medical examination without abnormal findings (principal) ==

== ENCOUNTER 2021-11-23 08:28 | Outpatient (CLI) | payer MEDICARE, SELFPAY ==
[2021-11-23] VITALS (7 sets, daily range): BP systolic 107–141; BP diastolic 60–80; PULSE 62–68; RESP 16–18; TEMP 36.6; O2SAT 94–97; BMI 31.1
--- NOTE | 2021-11-23 08:36 | IR_ITS ---
FINAL REPORT CLINICAL HISTORY: LUMBAR PAIN 12ml isvoue 200m Fluoro time 2.50 FINDINGS: Lumbar myelogram HISTORY: Back pain. ATTENDING PHYSICIAN: Dr. Gillette PHYSICIAN STOVE CLEANER: Cristóbal Mooney PA-C PROCEDURE: Informed consent was obtained. A time-out was performed, and the patient was prepped and draped in usual sterile fashion over the lumbar spine. Utilizing local anesthesia and direct fluoroscopic guidance, access to the thecal space was obtained at the L2-L3 level. 12 mL of Isovue 200M was gently injected. Spot and overhead films were obtained. FINDINGS: There are 5 nonrib-bearing lumbar vertebral bodies. Contrast is identified in the thecal space. Disc heights are maintained. Flexion and extension views demonstrate no abnormal instability.There are multilevel degenerative changes. FLUOROSCOPY TIME: 2.5 minutes IMPRESSION: Degenerative changes as above. Please see CT scan report. Films reviewed , interpreted and dictated by Dr. Melinda Gillette. Transcribed by Cristóbal Mooney PA-C. Reviewed, Interpreted and Dictated by Melinda Gillette MD Transcribed by CITLALY Sadler Authenticated and . [facility]
--- NOTE | 2021-11-23 08:46 | CT_ITS ---
FINAL REPORT TECHNIQUE: Axial images were obtained of the lumbar spine by computed tomography there are intrathecal injection of contrast. Coronal and sagittal reconstruction process performed. This study was performed with techniques to keep radiation doses as low as reasonably achievable (ALARA). Individualized dose reduction techniques using automated exposure control or adjustment of mA and/or kV according to the patient's size were employed. CLINICAL HISTORY: LUMBAR PAIN FINDINGS: CT LUMBAR SPINE WITH CONTRAST There is no acute fracture. Vertebral body height is preserved. Mild scoliosis is noted. Alignment is otherwise normal. There is diverticulosis of the included portion of the colon. Inflammatory changes surrounding the distal most sigmoid colon, just anterior to the sacrum, may represent mild acute diverticulitis. L1-2: Mild disc osteophyte complex. Mild central canal stenosis. Mild right and moderate left neuroforaminal narrowing. L2-3: Broad-based disc osteophyte complex. Mild central canal stenosis. Moderate bilateral neuroforaminal narrowing. L3-4: Mild disc osteophyte complex. No central canal stenosis. Severe right and moderate left neuroforaminal narrowing. L4-5: Broad-based disc osteophyte complex. Mild central canal stenosis. Severe bilateral neuroforaminal narrowing. L5-S1: Broad-based disc osteophyte complex. No central canal stenosis. Severe bilateral neuroforaminal narrowing. IMPRESSION: No acute osseous abnormality. Multilevel degenerative disc disease most pronounced at L4-5 and L5-S1. Possible mild acute diverticulitis of the sigmoid colon just along the anterior sacrum. Reviewed, Interpreted and Dictated by Melinda Gillette MD Transcribed by Yolanda Moura Authenticated and [facility]
--- NOTE | 2021-11-23 10:28 | PC.NURSE ---
1005- Pt arrived [facility] Attached to monitors and VSS. Valentin BOUCHER orders reviewed and noted, Patient had warm blankets and melissa paws applied for comfort. Pt stated she had a FARIA and coffee was given for caffeine. HOB @ 30* and she is watching tv.
--- NOTE | 2021-11-23 10:33 | PC.NURSE ---
1020- pt supine HOB @ 30*. Pt sleeping
--- NOTE | 2021-11-23 11:32 | PC.NURSE ---
Pt is awake and using her phone. Stated she is comfortable. SHe asked about her PT scheduled for tomorrow . I spoke with Valentin BOUCHER and he advised to restart after 11/24. I spoke with Naomie MAGAÑA about pt restriction for tomorrow and she will return at her next scheduled appt for PT after 11/24
--- NOTE | 2021-11-23 12:01 | PC.NURSE ---
Pt is dressing herself and stated sitting up and standing that she feels fine, clothes are laid out and pt seated in chair. Bandaid had small eraser head size of blood dried . no other drainage noted, all instructions reviewed with patient. Assisted pt to bathroom. Ambulated well to sister in waiting room.
== END 2021-11-23 12:11 | disposition home or self-care (01) ==
LOC: RAD 08:29
PROVIDERS: PCP Family Medicine; Visit Provider Orthopaedic Surgery
DX: M54.50 Low back pain, unspecified (principal)
CPT/HCPCS: 62304; 72132; Q9966

== ENCOUNTER 2021-12-08 08:00 | Outpatient (RCR) | payer MEDICARE, SELFPAY | END 2021-12-08 08:05 | disposition home or self-care (01) | LOC: PT 08:00 | PROVIDERS: PCP Family Medicine; Visit Provider Orthopaedic Surgery | DX: M54.50 Low back pain, unspecified (principal); M51.36 Other intervertebral disc degeneration, lumbar region; M25.552 Pain in left hip; M25.551 Pain in right hip | CPT/HCPCS: 97010; 97012; 97014; 97035; 97110; 97163; 97164; G0283 ==

== ENCOUNTER → 2022-03-15 12:38 | Outpatient (CLI) | payer MEDICARE, SELFPAY ==
[2022-03-15 14:52] LABS: Basophils # 0.1 K/mm3 (0-0.2); Basophils % 0.9 % (0.1-2.0); Eosinophils # 0.1 K/mm3 (0.0-0.4); Eosinophils % 1.8 % (0.1-12.0); Hematocrit 34.4 % (37.0-47.0); Hemoglobin 10.6 g/dL (12.2-16.2); Lymphocytes # 2.9 K/mm3 (0.7-4.5); Lymphocytes % 43.3 % (10-50); Mean Corpuscular HGB Conc 30.8 g/dL (31.8-35.4); Mean Corpuscular Hemoglobin 29.2 pg (27.0-31.2); Monocytes # 0.5 K/mm3 (0.1-1.0); Monocytes % 6.9 % (1.7-9.3); Neutrophils # 3.2 K/mm3 (1.8-7.8); Neutrophils % 47.1 % (37.0-80.0); Platelet Count 307 K/mm3 (142-424); Red Blood Count 3.62 M/mm3 (4.20-5.40); Red Cell Distribution Width 14.3 % (11.5-17.5); White Blood Count 6.8 K/mm3 (4.8-10.8)
[2022-03-15 15:07] LABS: Alanine Aminotransferase 17 U/L (12-78); Albumin Level 3.8 g/dl (3.5-5.0); Albumin/Globulin Ratio 1.6 (1.1-1.8); Alkaline Phosphatase 107 U/L (38-126); Anion Gap 13.9 mEq/L (5-15); Aspartate Amino Transferase 29 U/L (14-36); Blood Urea Nitrogen 28 mg/dl (7-17); Calcium 9.5 mg/dl (8.4-10.2); Carbon Dioxide 28 mmol/L (22.0-30.0); Chloride 100 mmol/L (98-107); Chol/HDL Ratio 1.8 (1-3.5); Cholesterol 171 mg/dl (140-200); Estimated Glomerular Filt Rate 36 ml/min (>60); GFR (African American) 44 ML/MIN (>60); Globulin 2.4 g/dL (1.3-3.2); Glucose 136 mg/dl (74-100); HDL Cholesterol 97 mg/dl (40-60); Potassium 3.9 mmoL/L (3.5-5.1); Sodium 138 mmol/L (136-145); Total Protein,Serum 6.2 g/dl (6.3-8.2); Triglycerides 168 mg/dl (30-150); Uric Acid 5.7 mg/dl (2.5-6.2); VLDL Cholesterol 34 mg/dL (0-40)
[2022-03-15 15:13] LABS: C-Reactive Protein 1.9 mg/L (0-4)
[2022-03-15 15:18] LABS: Erythrocyte Sedimentation Rate 22 mm/hr (0-30)
[2022-03-15 15:28] LABS: Bilirubin,Total < 0.1 mg/dl (0.2-1.3)
[2022-03-15 15:37] LABS: Thyroid Stimulating Hormone 0.69 uIU/mL (0.465-4.68)
[2022-03-15 16:01] LABS: Free T4 (Free Thyroxine) 1.24 ng/dl (0.78-2.19)
[2022-03-15 16:25] LABS: Direct LDL Cholesterol 51.58 mg/dL (100-129)
[2022-03-15 16:33] LABS: 25-OH Vitamin D, Total 33.6 ng/mL (30-100)
[2022-03-17 08:44] LABS: RA Latex Turbid. 13.2 IU/mL (<14.0)
[2022-03-19 09:16] LABS: Antinuclear Antibodies, IFA Negative (.)
== END ==
PROVIDERS: PCP Nurse Practitioner Family; Visit Provider Nurse Practitioner Family
DX: M10.9 Gout, unspecified (principal); M19.90 Unspecified osteoarthritis, unspecified site; I10 Essential (primary) hypertension; E55.9 Vitamin D deficiency, unspecified; E03.9 Hypothyroidism, unspecified; E78.2 Mixed hyperlipidemia
CPT/HCPCS: 36415; 80053; 80061; 82306; 84439; 84443; 84550; 85025; 85651; 86038; 86140; 86431

== ENCOUNTER → 2022-03-30 10:45 | Outpatient (CLI) | payer MEDICARE, SELFPAY ==
[2022-03-30 11:58] LABS: Creatinine,Urine Random 112 mg/dL (Not Estab.)
[2022-03-30 12:04] LABS: Microalbumin/Creatinine Ratio 10.6
[2022-03-30 12:10] LABS: Anion Gap 19.2 mEq/L (5-15); Blood Urea Nitrogen 31 mg/dl (7-17); Calcium 9.7 mg/dl (8.4-10.2); Carbon Dioxide 27 mmol/L (22.0-30.0); Chloride 97 mmol/L (98-107); Estimated Glomerular Filt Rate 43 ml/min (>60); GFR (African American) 52 ML/MIN (>60); Glucose 92 mg/dl (74-100); Phosphorous 3.9 mg/dl (2.5-4.5); Potassium 4.2 mmoL/L (3.5-5.1); Sodium 139 mmol/L (136-145)
== END ==
PROVIDERS: PCP Family Medicine; Visit Provider Internal Medicine Nephrology
DX: N18.32 Chronic kidney disease, stage 3b (principal)
CPT/HCPCS: 36415; 80069; 82043; 82570

== ENCOUNTER → 2022-04-05 10:07 | Outpatient (POV) | payer MEDICARE, SELFPAY | PROVIDERS: Visit Provider Internal Medicine Nephrology | DX: Z00.00 Encounter for general adult medical examination without abnormal findings (principal) ==

== ENCOUNTER → 2022-04-13 08:27 | Outpatient (CLI) | payer MEDICARE, SELFPAY ==
--- NOTE | 2022-04-13 08:45 | CT_ITS ---
FINAL REPORT TECHNIQUE: Axial CT images were performed from the lung bases through the pubic symphysis. Coronal reformats were submitted and reviewed. This study was performed with techniques to keep radiation doses as low as reasonably achievable (ALARA). Individualized dose reduction techniques using automated exposure control or adjustment of mA and/or kV according to the patient's size were employed. CLINICAL HISTORY: SUPERIOR MESENTERIC ARTERY STENOSIS COMPARISON: January 2021 FINDINGS: Abdomen: There is mild scarring in the lung bases. Pneumobilia is again seen. There are postoperative changes in the stomach. The spleen and pancreas are unremarkable. The celiac axis and SMA cannot be evaluated. There are no adrenal masses. There is no nephrolithiasis. There is no hydronephrosis. There is moderate to severe vascular calcification. Pelvis: The appendix is unremarkable. There are no distal ureteral stones. The urinary bladder is unremarkable. There is diverticulosis of the sigmoid colon. There has been hysterectomy. IMPRESSION: Unable to evaluate celiac axis and SMA on these noncontrast images. Moderate to severe vascular calcification. Diverticulosis without evidence of diverticulitis. Reviewed, Interpreted and Dictated by Saroj Valdes III, MD Transcribed by Greyson Mayes Authenticated and [facility] [place] [place]
[2022-04-13 09:41] LABS: Basophils # 0.1 K/mm3 (0-0.2); Eosinophils # 0.2 K/mm3 (0.0-0.4); Eosinophils % 1.9 % (0.1-12.0); Hematocrit 35.9 % (37.0-47.0); Hemoglobin 11.3 g/dL (12.2-16.2); Lymphocytes # 3.3 K/mm3 (0.7-4.5); Lymphocytes % 38.9 % (10-50); Mean Corpuscular HGB Conc 31.6 g/dL (31.8-35.4); Mean Corpuscular Hemoglobin 28.8 pg (27.0-31.2); Mean Corpuscular Volume 91.4 fl (81-99); Mean Platelet Volume 10.5 fl (7.4-10.4); Monocytes # 0.6 K/mm3 (0.1-1.0); Monocytes % 6.8 % (1.7-9.3); Neutrophils # 4.4 K/mm3 (1.8-7.8); Neutrophils % 51.3 % (37.0-80.0); Platelet Count 324 K/mm3 (142-424); Red Blood Count 3.93 M/mm3 (4.20-5.40); Red Cell Distribution Width 14.2 % (11.5-17.5); White Blood Count 8.6 K/mm3 (4.8-10.8)
[2022-04-13 10:09] LABS: Iron 50 ug/dL (37-170)
[2022-04-13 10:19] LABS: Total Iron Binding Capacity 439 ug/dL (265-497)
== END ==
PROVIDERS: Nurse Practitioner Family; PCP Family Medicine; Visit Provider Thoracic Surgery (Cardiothoracic Vascular Surgery)
DX: K55.1 Chronic vascular disorders of intestine (principal); D64.9 Anemia, unspecified
CPT/HCPCS: 36415; 74176; 83540; 83550; 85025

== ENCOUNTER → 2022-04-15 09:33 | Outpatient (CLI) | payer MEDICARE, SELFPAY ==
--- NOTE | 2022-04-15 09:52 | MM_ITS ---
PROCEDURE INFORMATION: Exam: MG Bilateral Screening 3D Mammography Exam date and time: 04/15/2022 9:42 AM Age: 81 years old Clinical indication: Screening examination TECHNIQUE: Imaging protocol: Bilateral Screening tomosynthesis and 2D mammography including computer-aided detection (CAD) when performed. COMPARISON: 1. MG MM DIG SCREENING MAMM BI W/CAD 04/03/2021 1:10 PM 2. MG MM DIG SCREENING MAMM BI W/CAD 04/04/2020 8:24 AM FINDINGS: MAMMOGRAPHY: Breast composition: The breasts are almost entirely fatty. Mass: None. Architectural distortion: None. Calcifications: No suspicious calcifications. Asymmetric density: None. Skin thickening: None. Axillary adenopathy: None. IMPRESSION: No mammographic evidence of malignancy. Annual screening is recommended unless otherwise clinically indicated. ASSESSMENT: BI-RADS Category 1: Negative
[2022-04-15 11:25] LABS: Occult Blood,Stool Negative (Negative)
== END ==
PROVIDERS: Nurse Practitioner Family; PCP Family Medicine; Visit Provider Family Medicine
DX: Z12.31 Encounter for screening mammogram for malignant neoplasm of breast (principal); R19.5 Other fecal abnormalities
CPT/HCPCS: 77063; 77067; 82272; G0328

== ENCOUNTER → 2022-04-15 10:15 | Outpatient (CLI) | payer MEDICARE, SELFPAY | PROVIDERS: PCP Nurse Practitioner Family; Visit Provider Nurse Practitioner Family | DX: Z12.11 Encounter for screening for malignant neoplasm of colon (principal) ==

== ENCOUNTER → 2022-04-27 07:48 | Outpatient (CLI) | payer MEDICARE, SELFPAY ==
--- NOTE | 2022-04-27 07:50 | CT_ITS ---
FINAL REPORT CLINICAL HISTORY: SUPERIOR MESENTERIC ARTERY STENOSIS COMPARISON: April 13, 2022 FINDINGS: CT OF THE ABDOMEN AND PELVIS WITH CONTRAST Axial CT images of the abdomen and pelvis were obtained after the administration of oral and iv contrast. Coronal reformatted images were also obtained and reviewed.This study was performed with techniques to keep radiation doses as low as reasonably achievable (ALARA). Individualized dose reduction techniques using automated exposure control or adjustment of mA and/or kV according to the patient's size were employed. Abdomen: There is scarring in the lung bases.. The heart is normal in size. The liver has an unremarkable appearance, without evidence of mass. There are postoperative changes from cholecystectomy. There is mild biliary ductal dilatation which is likely post cholecystectomy change. There are postoperative changes in the stomach. There are postoperative changes of the anterior abdomen wall. The spleen is unremarkable. No adrenal mass is present. The pancreas has an unremarkable appearance. The kidneys are normal, without evidence of mass or hydronephrosis. There are moderate vascular calcifications. There is no evidence of abdominal aortic aneurysm or dissection. There is calcification at the origin of the celiac axis which obscures detail and a stenosis at this level cannot be excluded. There is also calcification at the origin of the SMA without evidence of significant stenosis. There are calcifications at the renal artery origins which obscure detail and no definite stenosis is seen. The inferior mesenteric artery is patent. There is no evidence of stenosis or dissection of the iliac arteries. There is no free fluid or adenopathy. No mass or abnormal fluid collection is seen. There is sigmoid diverticulosis without evidence of diverticulitis. Pelvis: The appendix is not well-visualized. The urinary bladder is unremarkable. No inflammatory process is seen. There is no evidence of mass or adenopathy. There is no evidence of bowel obstruction. There are postoperative changes from hysterectomy. IMPRESSION: Technically limited study. No evidence of SMA stenosis or occlusion. Reviewed, Interpreted and Dictated by Saroj Valdes III, MD Transcribed by Mary Lou Ramos Authenticated and [facility]
== END ==
PROVIDERS: PCP Nurse Practitioner Family; Visit Provider Thoracic Surgery (Cardiothoracic Vascular Surgery)
DX: K55.1 Chronic vascular disorders of intestine (principal)
CPT/HCPCS: Q9967

== ENCOUNTER 2022-05-13 11:00 | Outpatient (RCR) | payer MEDICARE, SELFPAY | END 2022-05-13 11:05 | disposition home or self-care (01) | LOC: PT 11:00 | PROVIDERS: PCP Family Medicine; Visit Provider Orthopaedic Surgery | DX: M43.26 Fusion of spine, lumbar region (principal); M51.36 Other intervertebral disc degeneration, lumbar region | CPT/HCPCS: 97010; 97014; 97110; 97112; 97163; 97164; 97530; 97535; G0283 ==

== ENCOUNTER → 2022-06-09 08:43 | Outpatient (CLI) | payer MEDICARE, SELFPAY ==
--- NOTE | 2022-06-09 08:54 | XR_ITS ---
FINAL REPORT TECHNIQUE: Bone densitometry calculations of the right forearm and hips were obtained. CLINICAL HISTORY: osteoporosis COMPARISON: 04/04/2020 FINDINGS: DEXA BONE DENSITY AXIAL SKELETON Using the right forearm, the bone mineral density of the distal 1/3 is 0.423 g/cm2, corresponding to T-score of -4.5. No direct comparison is available. Using the right hip, the bone mineral density of the femoral neck is 0.861 g/cm2, corresponding to a T-score of 0.1. Previously measured 0.952 g/cm2, corresponding to T-score of 0.9. Using the left hip, the bone mineral density of the femoral neck is 0.977 g/cm2, corresponding to a T-score of 0.3. Previously measured 0.920 g/cm2, corresponding to T-score of 0.6. NOTE: T-score: Standard deviation compared with peak bone mass of young adult mean. *Following the recommendations of the International Society of Bone densitometry, classification of hip BMD is based on the lower of two T-scores; total hip or femoral neck. IMPRESSION: Diminished bone mineral density of the right forearm consistent with osteoporosis. Normal bone mineral density of the hips. Reviewed, Interpreted and Dictated by Keron Velasquez MD Transcribed by Mary Lou Ramos Authenticated and [facility]
== END ==
PROVIDERS: PCP Nurse Practitioner Family; Visit Provider Internal Medicine Nephrology
DX: M81.0 Age-related osteoporosis without current pathological fracture (principal); N18.32 Chronic kidney disease, stage 3b; I10 Essential (primary) hypertension
CPT/HCPCS: 77080

== ENCOUNTER → 2022-06-28 07:57 | Outpatient (CLI) | payer MEDICARE, SELFPAY ==
[2022-06-28 09:22] LABS: Albumin Level 3.7 g/dl (3.5-5.0); Anion Gap 3.7 mEq/L (5-15); Blood Urea Nitrogen 16 mg/dl (7-17); Carbon Dioxide 29 mmol/L (22.0-30.0); Chloride 107 mmol/L (98-107); Estimated Glomerular Filt Rate 53 ml/min (>60); GFR (African American) 64 ML/MIN (>60); Glucose 105 mg/dl (74-100); Phosphorous 3.7 mg/dl (2.5-4.5); Potassium 3.7 mmoL/L (3.5-5.1); Sodium 136 mmol/L (136-145)
[2022-06-28 09:39] LABS: 25-OH Vitamin D, Total 38.2 ng/mL (30-100)
[2022-06-30 21:56] LABS: Tandem-R Ostase 9.7 ug/L (.)
[2022-07-04 16:07] LABS: C-Telopeptide Serum 185 pg/mL (.)
== END ==
PROVIDERS: PCP Family Medicine; Visit Provider Internal Medicine Nephrology
DX: N18.32 Chronic kidney disease, stage 3b (principal); I10 Essential (primary) hypertension; M81.0 Age-related osteoporosis without current pathological fracture
CPT/HCPCS: 36415; 80069; 82306; 82523; 84080

== ENCOUNTER → 2022-07-05 12:13 | Outpatient (POV) | payer MEDICARE, SELFPAY ==
[2022-07-05 13:15] LABS: Microscopic, Urine URINE MICROSCOPIC (MICROSCOPIC)
[2022-07-05 13:37] LABS: Appearance,Urine CLOUDY (Clear); Bilirubin,Urine Negative (Negative); Blood, Urine 1+ (Negative); Color,Urine YELLOW (Yellow); Glucose,Urine (UA) Negative (Negative); Ketones,Urine Negative (Negative); Leukocyte Esterase,Urine 3+ (Negative); Nitrate,Urine POSITIVE (Negative); Protein,Urine Negative (Negative); Urobilinogen,Urine 0.2 EU/dl (0.2)
[2022-07-05 14:06] LABS: Bacteria,Urine 1+ /lpf; RBC,Urine Occasional #/hpf (0-3); Squamous Epithelial Cell,Urine Occasional #/hpf (0-5); WBC,Urine TNTC #/hpf (0-3); Yeast,Urine 4+ /lpf
== END ==
PROVIDERS: Nurse Practitioner; Visit Provider Internal Medicine Nephrology
DX: N39.0 Urinary tract infection, site not specified (principal); B96.29 Other Escherichia coli [E. coli] as the cause of diseases classified elsewhere
CPT/HCPCS: 81001; 87086; 87088; 87186

== ENCOUNTER → 2022-07-19 10:48 | Outpatient (CLI) | payer MEDICARE, SELFPAY ==
[2022-07-19 10:55] LABS: Microscopic, Urine URINE MICROSCOPIC (MICROSCOPIC)
[2022-07-19 11:25] LABS: Appearance,Urine CLEAR (Clear); Bilirubin,Urine Negative (Negative); Blood, Urine TRACE-I (Negative); Color,Urine YELLOW (Yellow); Glucose,Urine (UA) Negative (Negative); Ketones,Urine Negative (Negative); Leukocyte Esterase,Urine TRACE (Negative); Nitrate,Urine Negative (Negative); Protein,Urine Negative (Negative); Specific Gravity, Urine <= 1.005 (1.005-1.030); Urobilinogen,Urine 0.2 EU/dl (0.2)
[2022-07-19 11:36] LABS: Bacteria,Urine Trace /lpf; RBC,Urine Occasional #/hpf (0-3); Transitional Epi Cells,Urine OCC #/lpf (0-3)
== END ==
PROVIDERS: PCP Family Medicine; Visit Provider Nurse Practitioner
DX: N39.0 Urinary tract infection, site not specified (principal)
CPT/HCPCS: 36415; 81001

== ENCOUNTER → 2022-08-05 12:58 | Outpatient (CLI) | payer MEDICARE, SELFPAY ==
--- NOTE | 2022-08-05 13:02 | XR_ITS ---
FINAL REPORT CLINICAL HISTORY: LOW BACK PAIN,DIARRHEA,NAUSEA,DARK URINE,PELVIC PAIN,H/O KID COMPARISON: none FINDINGS: ABDOMEN SINGLE VIEW / KUB A single view of the abdomen was obtained with a coned down view of the pelvis. There is a nonspecific bowel gas pattern. There is no significant stool burden. There are no abnormally dilated loops of small bowel. No abnormal calcification is identified. Surgical clips are noted in the upper abdomen. IMPRESSION: No acute process. Reviewed, Interpreted and Dictated by Keron Velasquez MD Transcribed by Chiquita Nevarez Authenticated and . [facility]
== END ==
PROVIDERS: PCP Nurse Practitioner Family; Visit Provider Nurse Practitioner Family
DX: M54.50 Low back pain, unspecified (principal); R19.7 Diarrhea, unspecified; R10.2 Pelvic and perineal pain; R11.0 Nausea; R82.998 Other abnormal findings in urine; Z87.442 Personal history of urinary calculi
CPT/HCPCS: 74018

== ENCOUNTER 2022-09-13 20:55 | Emergency (ER) | payer MEDICARE, SELFPAY ==
[2022-09-13 20:56] VITALS: BP 198/91; PULSE 90; RESP 18; TEMP 36.6; O2SAT 96; BMI 32.9
--- NOTE | 2022-09-13 21:11 | HMH.EDDIZZ ---
Discharge Plan Disposition Patient Disposition: Home, Self-Care Chief Complaint: Dizziness Prescriptions Prescriptions: No Action levothyroxine 75 mcg capsule 75 mcg PO DAILY verapamil 120 mg capsule,ext rel. pellets 24 hr 120 mg PO DAILY aspirin [Adult Low Dose Aspirin] 81 mg tablet,delayed release (DR/EC) 81 mg PO DAILY nitroglycerin [Nitrostat] 0.6 mg tablet, sublingual 0.6 mg sublingual Q5M PRN (Reason: cp) Rx Instructions: hasnt used in years pravastatin 20 mg tablet 40 mg PO QHS fenofibrate nanocrystallized 145 mg tablet 73 mg PO DAILY fenofibrate micronized 67 mg capsule 67 mg PO DAILY methenamine hippurate 1 gram tablet 1 g PO DAILY PRN Label Comments: TAKE 1 TABLET BY MOUTH ONCE DAILY albuterol sulfate 90 mcg/actuation HFA aerosol inhaler 2 puff inhalation Q4-6H PRN (Reason: shortness of breath or wheezing) Qty: 8.5 1RF pantoprazole 40 mg tablet,delayed release (DR/EC) 40 mg PO QAM Qty: 30 6RF losartan 50 mg tablet See Rx Instructions .ROUTE .COMPLEX Qty: 90 0RF Dose Instruction: TAKE 1 TABLET BY MOUTH DAILY Rx Instructions: TAKE 1 TABLET BY MOUTH DAILY tramadol 50 MG tablet 50 mg PO DAILY trazodone 50 mg tablet 50 mg PO BID ursodiol 300 MG capsule 600 mg PO DAILY cholecalciferol (vitamin D3) 50 MCG tablet 2,000 unit PO DAILY Referrals Follow up/Referrals: Karley Messer APRN [Primary Care Provider] - See instructions Clinical Impressions Clinical Impression: Hypertensive urgency Instructions Patient Instructions: DI for High Blood Pressure Discharge ED Provider: Ra (ED)Arthur HPI General Chief Complaint: Dizziness Stated Complaint: elevated bp Time Seen by Provider: 09/13/22 21:12 Mode of Arrival: Ambulatory Source of Information: Patient and Medical Record Limitations: No Limitations Description of Symptoms (Recalled from ER Triage Doc. by RN): Pt arrives to ED with c/o consistent high BP readings over the last 4-5 hours. Pt stated she was switched to Losartan 50mg for her BP on . Pt also stated she had dizzy spells but believes it is related to her BP being high. History of Present Illness HPI Narrative: hx of htn and increased tonight with some dizzyness but no focal changes - no chest pain complaint: dizziness Onset (ago): hour(s) Timing: gradual onset Description: lightheadedness History of similar episodes: No History of trauma: No Severity: moderate Associated symptoms: denies other symptoms Related Data Home Medications Medication Instructions Recorded Confirmed aspirin 81 mg tablet,delayed 81 mg PO DAILY prevent 08/16/17 09/09/22 release (Adult Low Dose Aspirin) levothyroxine 75 mcg capsule 75 mcg PO DAILY thyroid 08/16/17 09/09/22 nitroglycerin 0.6 mg sublingual 0.6 mg sublingual Q5M PRN cp 08/16/17 09/09/22 tablet (Nitrostat) verapamil 120 mg 24 hr 120 mg PO DAILY bp 08/16/17 09/09/22 capsule,extended release tramadol 50 mg tablet 50 mg PO DAILY Pain 09/19/17 09/09/22 pravastatin 20 mg tablet 40 mg PO QHS Cholesterol 03/27/18 09/09/22 cholecalciferol (vitamin D3) 50 2,000 unit PO DAILY Supplement 05/01/21 09/09/22 mcg (2,000 unit) tablet ursodiol 300 mg capsule 600 mg PO DAILY stone prevention 05/01/21 09/09/22 fenofibrate micronized 67 mg 67 mg PO DAILY 09/09/22 09/09/22 capsule trazodone 50 mg tablet 50 mg PO BID sleep 09/09/22 09/09/22 losartan 50 mg tablet 50 mg PO DAILY High blood pressure 09/13/22 09/13/22 Previous Rx's Medication Instructions Recorded pantoprazole 40 mg tablet,delayed 40 mg PO QAM stomach #30 tabs 11/24/21 release albuterol sulfate 90 mcg/actuation 2 puff inhalation Q4-6H PRN 09/09/22 aerosol inhaler shortness of breath or wheezing #8.5 grams Allergies Allergy/AdvReac Type Severity Reaction Status Date / Time lisinopril Allergy Intermediate cough Verified 09/09/22 10
[2022-09-13 21:34] VITALS: BP 190/85; PULSE 82; RESP 17; TEMP 36.8; O2SAT 98
== END 2022-09-13 21:44 | disposition home or self-care (01) ==
PROVIDERS: Emergency Provider Emergency Medicine; PCP Nurse Practitioner Family
DX: I16.0 Hypertensive urgency (principal); R42 Dizziness and giddiness
CPT/HCPCS: 99283; 99284

== ENCOUNTER → 2022-09-28 09:52 | Outpatient (CLI) | payer MEDICARE, SELFPAY | PROVIDERS: PCP Nurse Practitioner Family; Visit Provider Nurse Practitioner Family | DX: N39.0 Urinary tract infection, site not specified (principal); B96.29 Other Escherichia coli [E. coli] as the cause of diseases classified elsewhere | CPT/HCPCS: 87086; 87088; 87186 ==

== ENCOUNTER → 2022-10-04 08:14 | Outpatient (POV) | payer MEDICARE, SELFPAY ==
[2022-10-04 08:17] VITALS: BP 173/63; PULSE 66; RESP 18; O2SAT 97; BMI 32.9
--- NOTE | 2022-10-04 08:33 | EXP.PAIN.OV ---
HPI Data of Consult Patient: new to practice Consult date: 10/04/22 Requesting Physician: Tammie Amado APRN Primary Care Provider: Karley Messer APRN Consult Narrative Reason for consult: Low back pain History of present illness: StartMs. Mcneal is a 82 year old female who presents today as a new patient. She is a referral from Karley Messer's office. Today she rates her pain a 6 out of 10. Patient states her pain is all at her low back and describes it as an aching, throbbing, sharp sensation that is worse with increased activity. Patient states this has been going on for years and progressively worsened over time. She did have a very with Dr. Aneudy casper in December 2021. This was a L4-L5 laminectomy. Following the procedure she was told by him that he had broken bones during the surgery and offered additional back surgery to repair it however she states she was not interested and did not go back to his office. Patient states that she continued to have additional pain and went to the hospital where they found a hematoma. Patient states she then wanted a second opinion and was sent to however was told that it would have to be a year and 1 day before they would see her. Patient has tried [id number] Tylenol and ibuprofen along with heat with no additional relief. Patient has been to physical therapy before her surgery along with 2 months of PT after her surgery with no additional relief. Patient was prescribed tramadol 50 mg from her primary care doctor however she has recently switched doctors and they can no longer prescribe this medication. She states that the medication does help take the edge off and she typically takes it at bedtime 1 to 2 tablets/day. Patient does state that she has had injections in the past however she had a severe itching reaction to the cortisone and that they did try multiple steroid medications with no additional improvement. Patient states that she has not tried any topicals. Her Doni is [id number]. Has been reviewed and appropriate. CC: Tammie Amado APRN [facility] Disclaimer: The information contained in this section may have been updated after the patient was seen, as this information can be updated by other users. Medical History (Updated 10/04/22 @ 10:58 by Tammie Amado APRN) Back pain DDD (degenerative disc disease) Dilatation of bladder Diverticulosis Gallstones GERD (gastroesophageal reflux disease) Heart disease History of asthma Hypertensive urgency Interstitial cystitis Left lower lobe pneumonia Osteoporosis Overactive bladder Persistent dry cough Renal failure UTI (urinary tract infection) Vitamin D deficiency Surgical History H/O breast biopsy H/O heart artery stent H/O: hysterectomy History of biopsy of bladder History of dilation and curettage Hx of cataract removal with insertion of prosthetic lens Hx of cholecystectomy Hx of colonoscopy Previous back surgery S/P cardiac catheterization Status post rotator cuff surgery Family History Father Coronary artery disease Hyperlipidemia Hypertension Stroke Mother Coronary artery disease Heart attack Hyperlipidemia Hypertension Brother Cancer hepatic Coronary artery disease Diabetes Heart attack Hyperlipidemia Hypertension Stroke Sister Cancer ovarian Hyperlipidemia Hypertension Diabetes Son Coronary artery disease Heart attack Daughter Hyperlipidemia Hypertension Social History Smoking Status: Never smoker years smoked: 30 second hand exposure: No alcohol intake: never substance use type: denies use current occupational status: retired Travel in the last 8 weeks: None household members: none housing: house current occupational exposures/hazards: No caffeine: Yes Review of Systems Review of Sy
== END | disposition home or self-care (01) ==
PROVIDERS: PCP Nurse Practitioner Family; Visit Provider Nurse Practitioner Family
DX: M48.061 Spinal stenosis, lumbar region without neurogenic claudication (principal); M54.9 Dorsalgia, unspecified; G89.29 Other chronic pain
CPT/HCPCS: 99202; G0463

== ENCOUNTER → 2022-10-04 09:56 | Outpatient (CLI) | payer MEDICARE, SELFPAY ==
--- NOTE | 2022-10-04 10:02 | XR_ITS ---
FINAL REPORT CLINICAL HISTORY: productive cough, dyspnea, febrile, r/o pna COMPARISON: 03/20/2019 FINDINGS: PA and lateral views of the chest were obtained. The cardiac silhouette is within normal limits. There are increased interstitial markings in the lungs bilaterally, that may represent interstitial edema versus pneumonia. A small left pleural effusion is present. There is fullness in the right hilum, and adenopathy can not be excluded. No acute osseous abnormality is identified. IMPRESSION: Increased interstitial markings in the lungs bilaterally that may represent pneumonia or interstitial edema. Fullness in the right hilum, can not exclude adenopathy. Would consider CT of the chest with contrast for further evaluation if indicated. Reviewed, Interpreted and Dictated by Melinda Gillette MD Transcribed by Daisy Egan Authenticated and . [facility]
== END ==
PROVIDERS: PCP Nurse Practitioner Family; Visit Provider Nurse Practitioner Family
DX: R05.9 Cough, unspecified (principal); R06.00 Dyspnea, unspecified; M54.9 Dorsalgia, unspecified
CPT/HCPCS: 71046; 87086; 99202; G0463

== ENCOUNTER → 2022-10-04 16:25 | Outpatient (CLI) | payer MEDICARE, SELFPAY | PROVIDERS: PCP Nurse Practitioner Family; Visit Provider Nurse Practitioner Family | DX: R06.00 Dyspnea, unspecified (principal) ==

== ENCOUNTER 2022-10-18 10:46 | Inpatient (IN) | payer MEDICARE, SELFPAY ==
[2022-10-18] VITALS (8 sets, daily range): BP systolic 142–173; BP diastolic 80–94; PULSE 66–84; RESP 18–20; TEMP 36.6–37.6; O2SAT 88–94; BMI 32.6
--- NOTE | 2022-10-18 10:58 | PC.NURSE ---
arrived to floor by w/c from front lobby admissions
--- NOTE | 2022-10-18 11:03 | HMH.PHAINT1 ---
Pharmacy Intervention Comments: MEDICATION RECONCILIATION COMPLETED ON PATIENT USING EXTERNAL FILL HISTORY FROM PHARMACY AND LIST FROM PCP OFFICE. -REJI BASILIO, HUED
[2022-10-18 12:18] LABS: Coronavirus 19, PCR Not Detected (NotDetected); Influenza A, PCR Not Detected (NotDetected); Influenza B, PCR Not Detected (NotDetected)
--- NOTE | 2022-10-18 13:27 | CT_ITS ---
FINAL REPORT TECHNIQUE: The patient was injected with IV contrast. Axial images were obtained through the chest in a PE protocol. 3-D reconstruction images were also performed. Individualized dose reduction techniques using automated exposure control or adjustment of the MA and/or KV according to patient's size were employed. CLINICAL HISTORY: r/o PE and eval for pneumonia FINDINGS: Mediastinal vasculature is adequately opacified. No pulmonary artery filling defects are identified to suggest PE. There is no aortic dissection. There is no axillary adenopathy. There are small paratracheal and subcarinal nodes as well as right hilar nodes present. Moderate right and small left pleural effusions are noted. There are patchy bilateral airspace infiltrates in the upper and lower lobes. The heart size is normal. Limited images of the upper abdomen reveal that the patient is status post cholecystectomy. Moderate pneumobilia is present. IMPRESSION: No pulmonary embolus or dissection. Patchy bilateral airspace infiltrates in the upper and lower lobes as well as moderate right and small left pleural effusions. Nonspecific adenopathy in the paratracheal, subcarinal, and right hilar regions, probably reactive. Prior cholecystectomy with moderate pneumobilia. Reviewed, Interpreted and Dictated by Keron Velasquez MD Transcribed by Daisy Egan Authenticated and [facility]
--- NOTE | 2022-10-18 13:52 | EXP.HP ---
History of Present Illness *Admission Date: 10/18/22 *History of present illness: Patient admitted to hospital complaining of shortness of breath for several weeks. Patient visited primary care physician October 04, and diagnosed with pneumonia via chest x-ray. Patient placed on azithromycin. Patient revisited PCP today for follow-up appointment with O2 saturation noted of 85% on room air. Patient also dyspneic, with fatigability with minimal exertion. Sleeps on 1 pillow, denies orthopnea, PND. Admits to chronic swelling and right lower extremity only. States her rapid outsole stitcher is Dr. Garcia, with last appointment few weeks ago. Sees rapid outsole stitcher due to myocardial infarction with stent placed 1998. Also admits to asthma, but denies any recent exacerbation/hospitalizations for asthma issues. [facility] Disclaimer: The information contained in this section may have been updated after the patient was seen, as this information can be updated by other users. Medical History Back pain DDD (degenerative disc disease) Dilatation of bladder Diverticulosis Gallstones GERD (gastroesophageal reflux disease) Heart disease History of asthma Hypertensive urgency Interstitial cystitis Left lower lobe pneumonia Osteoporosis Overactive bladder Persistent dry cough Renal failure UTI (urinary tract infection) UTI (urinary tract infection) Vaginal yeast infection Vitamin D deficiency Surgical History H/O breast biopsy H/O heart artery stent H/O: hysterectomy History of biopsy of bladder History of dilation and curettage Hx of cataract removal with insertion of prosthetic lens Hx of cholecystectomy Hx of colonoscopy Previous back surgery S/P cardiac catheterization Status post rotator cuff surgery Family History Father Coronary artery disease Hyperlipidemia Hypertension Stroke Mother Coronary artery disease Heart attack Hyperlipidemia Hypertension Brother Cancer hepatic Coronary artery disease Diabetes Heart attack Hyperlipidemia Hypertension Stroke Sister Cancer ovarian Hyperlipidemia Hypertension Diabetes Son Coronary artery disease Heart attack Daughter Hyperlipidemia Hypertension Social History (Updated 10/18/22 @ 11:41 by Denise Anguiano RN) Smoking Status: Former smoker quit date: 05/02/91 years smoked: 30 second hand exposure: No alcohol intake: never substance use type: denies use current occupational status: retired Travel in the last 8 weeks: None household members: none housing: house current occupational exposures/hazards: No caffeine: Yes Meds Home Medications and Allergies Home Medications Medication Instructions Recorded Confirmed Type aspirin 81 mg tablet,delayed 81 mg PO DAILY HEART HEALTH 08/16/17 10/18/22 History release (Adult Low Dose Aspirin) fenofibrate micronized 67 mg 67 mg PO DAILY Cholesterol 09/09/22 10/18/22 History capsule trazodone 50 mg tablet 100 mg PO HS sleep 09/09/22 10/18/22 History ursodiol 300 mg capsule 600 mg PO DAILY gallstone 09/15/22 10/18/22 History prevention albuterol sulfate 90 mcg/actuation 2 puff inhalation Q4HP PRN 10/18/22 10/18/22 History aerosol inhaler shortness of breath or wheezing carvedilol 25 mg tablet 25 mg PO BID Hypertension 10/18/22 10/18/22 History levothyroxine 75 mcg tablet 75 mcg PO DAILY THYROID 10/18/22 10/18/22 History (Synthroid) losartan 50 mg tablet 50 mg PO BID Hypertension 10/18/22 10/18/22 History nitroglycerin 0.4 mg sublingual 0.4 mg sublingual Q5MINP PRN chest 10/18/22 10/18/22 History tablet pain pantoprazole 40 mg tablet,delayed 40 mg PO DAILY Acid reflux 10/18/22 10/18/22 History release pravastatin 40 mg tablet 40 mg PO HS Cholesterol 10/18/22 10/18/22 History tramadol 50 mg tablet
[2022-10-18 13:54] LABS: Alanine Aminotransferase 19 U/L (12-78); Albumin Level 3.7 g/dl (3.5-5.0); Albumin/Globulin Ratio 1.2 (1.1-1.8); Alkaline Phosphatase 84 U/L (38-126); Anion Gap 11.4 mEq/L (5-15); Aspartate Amino Transferase 32 U/L (14-36); Bilirubin,Total 0.4 mg/dl (0.2-1.3); Blood Urea Nitrogen 18 mg/dl (7-17); Calcium 9.2 mg/dl (8.4-10.2); Carbon Dioxide 31 mmol/L (22.0-30.0); Chloride 101 mmol/L (98-107); Creatinine Clearance Estimated 50 mL/min (50-200); Estimated Glomerular Filt Rate 48 ml/min (>60); GFR (African American) 58 ML/MIN (>60); Glucose 102 mg/dl (74-100); Magnesium 1.7 mg/dl (1.6-2.3); Potassium 4.4 mmoL/L (3.5-5.1); Sodium 139 mmol/L (136-145); Total Protein,Serum 6.7 g/dl (6.3-8.2)
[2022-10-18 13:57] LABS: INR 0.98 (0.9-1.1); Lactic Acid 1.2 mmol/L (0.7-2.1); Prothrombin Time 10.6 seconds (10.1-12.5)
[2022-10-18 14:03] LABS: NT Pro Brain Natriuretic Pep. 3300 pg/mL (0-450)
[2022-10-18 14:12] LABS: Procalcitonin 0.054 ng/mL (0.0-2.0)
[2022-10-18 14:17] LABS: Basophils # 0.1 K/mm3 (0-0.2); Basophils % 0.7 % (0.1-2.0); Eosinophils # 0.1 K/mm3 (0.0-0.4); Eosinophils % 1.4 % (0.1-12.0); Hemoglobin 10.7 g/dL (12.2-16.2); Lymphocytes # 1.8 K/mm3 (0.7-4.5); Mean Corpuscular HGB Conc 31.5 g/dL (31.8-35.4); Mean Corpuscular Hemoglobin 28.4 pg (27.0-31.2); Mean Corpuscular Volume 90.4 fl (81-99); Mean Platelet Volume 11.5 fl (7.4-10.4); Monocytes # 0.9 K/mm3 (0.1-1.0); Monocytes % 10.7 % (1.7-9.3); Neutrophils # 5.3 K/mm3 (1.8-7.8); Neutrophils % 65.2 % (37.0-80.0); Platelet Count 357 K/mm3 (142-424); Red Blood Count 3.77 M/mm3 (4.20-5.40); Red Cell Distribution Width 15.3 % (11.5-17.5); White Blood Count 8.2 K/mm3 (4.8-10.8)
--- NOTE | 2022-10-18 16:42 | EXP.HP ---
History of Present Illness *Admission Date: 10/18/22 [facility] Disclaimer: The information contained in this section may have been updated after the patient was seen, as this information can be updated by other users. Medical History Back pain DDD (degenerative disc disease) Dilatation of bladder Diverticulosis Gallstones GERD (gastroesophageal reflux disease) Heart disease History of asthma Hypertensive urgency Interstitial cystitis Left lower lobe pneumonia Osteoporosis Overactive bladder Persistent dry cough Renal failure UTI (urinary tract infection) UTI (urinary tract infection) Vaginal yeast infection Vitamin D deficiency Surgical History H/O breast biopsy H/O heart artery stent H/O: hysterectomy History of biopsy of bladder History of dilation and curettage Hx of cataract removal with insertion of prosthetic lens Hx of cholecystectomy Hx of colonoscopy Previous back surgery S/P cardiac catheterization Status post rotator cuff surgery Family History Father Coronary artery disease Hyperlipidemia Hypertension Stroke Mother Coronary artery disease Heart attack Hyperlipidemia Hypertension Brother Cancer hepatic Coronary artery disease Diabetes Heart attack Hyperlipidemia Hypertension Stroke Sister Cancer ovarian Hyperlipidemia Hypertension Diabetes Son Coronary artery disease Heart attack Daughter Hyperlipidemia Hypertension Social History (Updated 10/18/22 @ 11:41 by Denise Anguiano RN) Smoking Status: Former smoker quit date: 05/02/91 years smoked: 30 second hand exposure: No alcohol intake: never substance use type: denies use current occupational status: retired Travel in the last 8 weeks: None household members: none housing: house current occupational exposures/hazards: No caffeine: Yes Meds Home Medications and Allergies Home Medications Medication Instructions Recorded Confirmed Type aspirin 81 mg tablet,delayed 81 mg PO DAILY HEART HEALTH 08/16/17 10/18/22 History release (Adult Low Dose Aspirin) fenofibrate micronized 67 mg 67 mg PO DAILY Cholesterol 09/09/22 10/18/22 History capsule trazodone 50 mg tablet 100 mg PO HS sleep 09/09/22 10/18/22 History ursodiol 300 mg capsule 600 mg PO DAILY gallstone 09/15/22 10/18/22 History prevention albuterol sulfate 90 mcg/actuation 2 puff inhalation Q4HP PRN 10/18/22 10/18/22 History aerosol inhaler shortness of breath or wheezing carvedilol 25 mg tablet 25 mg PO BID Hypertension 10/18/22 10/18/22 History levothyroxine 75 mcg tablet 75 mcg PO DAILY THYROID 10/18/22 10/18/22 History (Synthroid) losartan 50 mg tablet 50 mg PO BID Hypertension 10/18/22 10/18/22 History nitroglycerin 0.4 mg sublingual 0.4 mg sublingual Q5MINP PRN chest 10/18/22 10/18/22 History tablet pain pantoprazole 40 mg tablet,delayed 40 mg PO DAILY Acid reflux 10/18/22 10/18/22 History release pravastatin 40 mg tablet 40 mg PO HS Cholesterol 10/18/22 10/18/22 History tramadol 50 mg tablet 50 mg PO BIDP PRN Moderate Pain 10/18/22 10/18/22 History (Scale Score 5-6) verapamil 120 mg tablet 120 mg PO DAILY Hypertension 10/18/22 10/18/22 History New Prescriptions to Start Prescriptions: Allergies Allergy/AdvReac Type Severity Reaction Status Date / Time lisinopril Allergy Intermediate cough Verified 10/18/22 11:21 acetaminophen [From LORTAB] Allergy Unknown NA-NAUSEA Verified 10/18/22 11:21 atenolol [ATENOLOL] Allergy Unknown ASTHMA Verified 10/18/22 11:21 ATTACK ciprofloxacin [From CIPRO] Allergy Unknown SWELLING/RA Verified 10/18/22 11:21 SH codeine [CODEINE] Allergy Unknown I-RASH Verified 10/18/22 11:21 cortisone [CORTISONE] Allergy Unknown I-HIVES/SOB Verified 10/18/22 11:21 erythromycin base Allergy
--- NOTE | 2022-10-18 17:09 | PC.NURSE ---
A&OX4. PT HAS TOLERATED RA WELL THROUGHOUT SHIFT. RESPIRATIONS REGULAR AND UNLABORED. LUNG SOUNDS DIMINISHED THROUGHOUT. DRY, NONPRODUCTIVE COUGH NOTED. NO EDEMA NOTED. +2 PULSES NOTED THROUGHOUT. HAND PRACTICE COORDINATOR EQUAL. ACTIVE BOWEL SOUNDS HEARD IN ALL 4 QUADRANS. SOFT AND NONTENDER. NO BM REPORTED THUS FAR. STATES SHE HAD ONE THIS AM AT HOME. VOIDS PER BATHROOM INDEPENDENTLY WITH STEADY GAIT NOTED. DAUGHTER HAS VISITED THROUGHOUT SHIFT. PT RECEIVED ROCEPHIN AND AZITHROMYCIN THIS SHIFT AND TOLERATED WELL. NO REPORTS OF NAUSEA OR PAIN THUS FAR. NO REPORTS OF CHEST PAIN THUS FAR. PT REPORTED SOB ONCE WITH WHEEZES NOTED. ALBUTEROL TREATMENT ADMINISTERED PER JUN. BED IN LOWEST POSITION. CALL LIGHT WITHIN REACH. VSS. NO QUESTIONS OR CONCERNS VOICED. WILL CONTINUE TO MONITOR.
[2022-10-18 17:35] LABS: Basophils % 0.4 % (0.1-2.0); Eosinophils # 0.1 K/mm3 (0.0-0.4); Eosinophils % 0.8 % (0.1-12.0); Hematocrit 33.5 % (37.0-47.0); Hemoglobin 10.7 g/dL (12.2-16.2); Lymphocytes # 1.1 K/mm3 (0.7-4.5); Lymphocytes % 10.9 % (10-50); Mean Corpuscular Hemoglobin 28.4 pg (27.0-31.2); Mean Corpuscular Volume 88.7 fl (81-99); Mean Platelet Volume 9.7 fl (7.4-10.4); Monocytes # 0.8 K/mm3 (0.1-1.0); Monocytes % 7.4 % (1.7-9.3); Neutrophils # 8.2 K/mm3 (1.8-7.8); Neutrophils % 80.5 % (37.0-80.0); Platelet Count 353 K/mm3 (142-424); Red Blood Count 3.78 M/mm3 (4.20-5.40); Red Cell Distribution Width 15.1 % (11.5-17.5); White Blood Count 10.2 K/mm3 (4.8-10.8)
[2022-10-18 17:54] LABS: Chloride 98 mmol/L (98-107)
[2022-10-18 17:55] LABS: Sodium 136 mmol/L (136-145)
[2022-10-18 17:57] LABS: Alanine Aminotransferase 23 U/L (12-78); Aspartate Amino Transferase 31 U/L (14-36); Blood Urea Nitrogen 17 mg/dl (7-17); Creatinine Clearance Estimated 43 mL/min (50-200); Estimated Glomerular Filt Rate 39 ml/min (>60); GFR (African American) 47 ML/MIN (>60)
[2022-10-18 17:58] LABS: Albumin Level 3.8 g/dl (3.5-5.0); Albumin/Globulin Ratio 1.3 (1.1-1.8); Alkaline Phosphatase 91 U/L (38-126); Anion Gap 16.3 mEq/L (5-15); Bilirubin,Total 0.4 mg/dl (0.2-1.3); Calcium 9.2 mg/dl (8.4-10.2); Carbon Dioxide 26 mmol/L (22.0-30.0); Glucose 251 mg/dl (74-100); Magnesium 1.5 mg/dl (1.6-2.3); Potassium 4.3 mmoL/L (3.5-5.1); Total Protein,Serum 6.8 g/dl (6.3-8.2)
[2022-10-19] VITALS (9 sets, daily range): BP systolic 132–172; BP diastolic 61–79; PULSE 60–82; RESP 16–18; TEMP 36.4–37.1; O2SAT 91–96; BMI 33.2
[2022-10-19 06:04] LABS: Basophils % 0.1 % (0.1-2.0); Eosinophils % 0.3 % (0.1-12.0); Hematocrit 31.8 % (37.0-47.0); Hemoglobin 10.2 g/dL (12.2-16.2); Lymphocytes # 1.4 K/mm3 (0.7-4.5); Lymphocytes % 19.8 % (10-50); Mean Corpuscular HGB Conc 32.2 g/dL (31.8-35.4); Mean Corpuscular Hemoglobin 28.7 pg (27.0-31.2); Mean Corpuscular Volume 89.2 fl (81-99); Monocytes # 0.6 K/mm3 (0.1-1.0); Monocytes % 7.8 % (1.7-9.3); Neutrophils # 5.2 K/mm3 (1.8-7.8); Platelet Count 323 K/mm3 (142-424); Red Blood Count 3.57 M/mm3 (4.20-5.40); White Blood Count 7.2 K/mm3 (4.8-10.8)
[2022-10-19 06:23] LABS: Chloride 96 mmol/L (98-107); Potassium 4.6 mmoL/L (3.5-5.1); Sodium 136 mmol/L (136-145)
--- NOTE | 2022-10-19 06:25 | PC.NURSE ---
Pt has tolerated 1.5 L nc well t/o shift with o2 sat >90%. Pt c/o pain in left hip but states this is common for her. PRN pain medication administered. Call light within reach.
[2022-10-19 06:26] LABS: Anion Gap 16.6 mEq/L (5-15); Blood Urea Nitrogen 21 mg/dl (7-17); Calcium 8.9 mg/dl (8.4-10.2); Carbon Dioxide 28 mmol/L (22.0-30.0); Creatinine Clearance Estimated 47 mL/min (50-200); Estimated Glomerular Filt Rate 43 ml/min (>60); GFR (African American) 52 ML/MIN (>60); Glucose 155 mg/dl (74-100); Magnesium 1.7 mg/dl (1.6-2.3)
[2022-10-19 08:15] LABS: Troponin I 0.01 ng/ml (0.00-0.034)
--- NOTE | 2022-10-19 08:59 | CA_ITS ---
FINAL REPORT TECHNIQUE: extremity venous duplex was performed with augmentation and compression. CLINICAL HISTORY: rt leg pain FINDINGS: Proper flow is seen throughout the deep venous system. There is no evidence of deep venous thrombosis. IMPRESSION: no deep venous thrombosis. Reviewed, Interpreted and Dictated by Keron Velasquez MD Transcribed by Daisy Egan Authenticated and [facility]
--- NOTE | 2022-10-19 11:34 | US_ITS ---
FINAL REPORT CLINICAL HISTORY: HTN FINDINGS: The right kidney measures 8.2 cm in length. It is normal in echogenicity. There is no hydronephrosis. The left kidney measures 9.6 cm in length. It is normal in echogenicity. There is no hydronephrosis. The spleen is unremarkable. There is a right pleural effusion. IMPRESSION: Right pleural effusion. Reviewed, Interpreted and Dictated by Keron Velasquez MD Transcribed by Kristy Cornejo Authenticated and [facility]
--- NOTE | 2022-10-19 11:34 | CA_ITS ---
FINAL REPORT CLINICAL HISTORY: HTN, CKD III, Hx-celiac & mesenteric stenosis FINDINGS: Aorta velocity: Old 120 cm/sec Right kidney: 10.0 cm. No evidence of hydronephrosis or mass. Right intrarenal RI: 0.89 Right renal artery velocity: 167 cm/sec. Right RAR (Renal artery-Aortic Ratio): 1.4 Left Kidney: 9.9 cm. No evidence of hydronephrosis or mass. Left intrarenal RI: 0.82 Left renal artery velocity: 136 cm/sec. Left RAR (Renal Artery-Aortic Ratio): 1.1 IMPRESSION: No evidence of significant renal artery stenosis. CT angiogram or postcontrast MR angiogram would be more sensitive for evaluation of possible renal artery stenosis. Reviewed, Interpreted and Dictated by Keron Velasquez MD Transcribed by Greyson Mayes Authenticated and [facility]
--- NOTE | 2022-10-19 11:34 | EXP.CARD.CON ---
History of Present Illness History of Present Illness Consult date: 10/19/22 Requesting physician: Fadi Cardoza Consult reason: hypertension, congestive heart failure and shortness of breath Chief complaint: SOA Additional Medical History:: 1. Coronary artery disease, followed by Dr. Garcia in [place], [place] A. Inferior [place], 1998, 3.5 x 32 mm CONSTANCE stent to RCA B. Stress test, approximately 2020 per patient, no ischemia or need for further evaluation 2. History of palpitations A. PACs and PVCs on Holter, 1998 3. Remote tobacco use, discontinued in the 4. History of asthma, diagnosed 1996 5. Carotid artery disease A. History of carotid duplex, 2010, 50 to 69% ICA stenosis bilaterally 6. Hypertension A. Echocardiogram 09/2022, biatrial enlargement, normal LV size with concentric LVH. EF 60-65% with normal RV size and function with RVSP 46 mmHg. No significant valve disease 7. History of hypothyroidism On replacement 8. History of diverticulosis 9. Chronic neck pain 10. History of gastric bypass prior to 2011 11. 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 Interstitial cystitis with recurrent UTIs History of present illness: Patient admitted to hospital complaining of shortness of breath for several weeks.? Patient visited primary care physician October 04, and diagnosed with pneumonia via chest x-ray.? Patient placed on azithromycin.? Patient revisited PCP today for follow-up appointment with O2 saturation noted of 85% on room air.? Patient also dyspneic, with fatigability with minimal exertion.? Sleeps on 1 pillow, denies orthopnea, PND.? Admits to chronic swelling and right lower extremity only.? States her president & ceo [employer] is Dr. Garcia, with last appointment few weeks ago.? Sees president & ceo [employer] due to myocardial infarction with stent placed 1998.? Also admits to asthma, but denies any recent exacerbation/hospitalizations for asthma issues. The above per Dr. Cardoza, Hospitalist Cardiology consulted for evaluation of suspected congestive heart failure secondary to diastolic dysfunction. She continues to require supplemental oxygen but is improving slowly. Echocardiogram this admission shows ejection fraction of 60-65% with concentric LVH. RV size and function is normal RVSP noted to be 46 mmHg. Her last visit with her president & ceo [employer] (Dr. Garcia) was 2 to 3 weeks ago. She reports a stress test 1 to 2 years ago prior to surgery that was unremarkable. She denies any chest pain, pressure or tightness at this time. Patient and daughter both relate that patient has persistent stubborn hypertension with recent trial of terazosin that resulted in shortness of breath/asthma attack for which she stopped the terazosin. [facility] Disclaimer: The information contained in this section may have been updated after the patient was seen, as this information can be updated by other users. Medical History (Updated 10/19/22 @ 11:46 by CITLALY Corral) Back pain DDD (degenerative disc disease) Dilatation of bladder Diverticulosis Gallstones GERD (gastroesophageal reflux disease) Heart disease History of asthma Hypertensive urgency Interstitial cystitis Left lower lobe pneumonia Osteoporosis Overactive bladder Persistent dry cough Renal failure UTI (urinary tract infection) UTI (urinary tract infection) Vaginal yeast infection Vitamin D deficiency Surgical History H/O breast biopsy H/O heart artery stent H/O: hysterectomy History of biopsy of bladder History of dilation and curettage Hx of cataract removal with insertion of prosthetic lens Hx of cholecystectomy Hx of colonoscopy Previous back surgery S/P cardiac catheterization Status post rotator cuff surgery Family History Father Coronary artery disease Hyperlipidemia Hypertension Stroke Mother Coronary artery dis
--- NOTE | 2022-10-19 12:44 | EXP.PULM.CON ---
History of Present Illness History of present illness: Ms. Mcneal is a 82-year-old female greater than [id number] smoking the last smoked around 1989 David diagnosis of mild intermittent asthma, allergies, history of sleep apnea diagnosed 15 years ago not compliant with her CPAP, CKD III, CAD experiencing worsening respiratory distress for the last 4 weeks treated for community-acquired pneumonia as an outpatient basis with no significant improvement clinically presented to the hospital needing new oxygen requirements and pulmonary was called for further evaluation. [facility] Disclaimer: The information contained in this section may have been updated after the patient was seen, as this information can be updated by other users. Medical History (Updated 10/19/22 @ 13:32 by Stone Sarabia MD) Acute respiratory failure with hypoxia Back pain DDD (degenerative disc disease) Dilatation of bladder Diverticulosis Gallstones GERD (gastroesophageal reflux disease) Heart disease History of asthma History of asthma History of sleep apnea Hypertensive urgency Interstitial cystitis Left lower lobe pneumonia Osteoporosis Overactive bladder Persistent dry cough Pleural effusion, bilateral Pneumonia Renal failure UTI (urinary tract infection) UTI (urinary tract infection) Vaginal yeast infection Vitamin D deficiency Surgical History H/O breast biopsy H/O heart artery stent H/O: hysterectomy History of biopsy of bladder History of dilation and curettage Hx of cataract removal with insertion of prosthetic lens Hx of cholecystectomy Hx of colonoscopy Previous back surgery S/P cardiac catheterization Status post rotator cuff surgery Family History Father Coronary artery disease Hyperlipidemia Hypertension Stroke Mother Coronary artery disease Heart attack Hyperlipidemia Hypertension Brother Cancer hepatic Coronary artery disease Diabetes Heart attack Hyperlipidemia Hypertension Stroke Sister Cancer ovarian Hyperlipidemia Hypertension Diabetes Son Coronary artery disease Heart attack Daughter Hyperlipidemia Hypertension Social History (Updated 10/18/22 @ 11:41 by Denise Anguiano RN) Smoking Status: Former smoker quit date: 05/02/91 years smoked: 30 second hand exposure: No alcohol intake: never substance use type: denies use current occupational status: retired Travel in the last 8 weeks: None household members: none housing: house current occupational exposures/hazards: No caffeine: Yes Review of Systems Constitutional Constitutional: Reports body ache(s) Eyes Eyes: Denies eye discharge, Denies dry eyes, Denies irritation and Denies itchy eyes ENT Ears, Nose, Mouth, and Throat: Denies epistaxis, Denies facial pain, Denies lip swelling and Denies throat swelling *Cardiovascular Cardiovascular: Reports dyspnea, Reports dyspnea on exertion, Reports leg edema and Reports orthopnea *Respiratory Respiratory: Reports chest congestion, Reports cough, Reports dyspnea, Reports dyspnea on exertion, Denies excessive phlegm production, Denies hemoptysis, Denies pain on inspiration, Denies pain with cough and Reports wheezing *Gastrointestinal Gastrointestinal: Denies abdominal pain, Denies belching and Denies cramping *Musculoskeletal Musculoskeletal: Denies myalgias Psychiatric Psychiatric: Denies homicidal ideation and Denies suicidal ideation Endocrine Endocrine: Denies heat intolerance Hematologic/Lymphatic Hematologic/Lymphatic: Denies easy bleeding and Denies lymphadenopathy Allergic/Immunologic Allergic/Immunologic: Denies itchy eyes, Denies lip swelling, Denies throat swelling and Reports wheezing Pulmonology Exam Inpatient Vital signs and Labs for Last 24 Hours: Temp Pulse Resp BP Pulse Ox 98.5 F 75 18 145/75 H 94 L 10/19/22
[2022-10-19 14:00] LABS: Troponin I < 0.01 ng/ml (0.00-0.034)
--- NOTE | 2022-10-19 14:31 | EXP.PN ---
Subjective *Date: 10/19/22 *Time: 14:35 Interval history: Patient steadily weaning to room air. Patient now currently on 1.5 L oxygen without signs of respiratory distress. Patient informed by Dr. Cardoza today that CTA chest showed signs of subacute pneumonia, and fluid accumulation. Patient status post cardiology evaluation today. Denies fevers, chills, chest discomfort overnight. Exam Data for Last 24 hours Vital signs and Labs for Last 24 Hours: Temp Pulse Resp BP Pulse Ox 97.6 F 78 18 172/76 H 93 L 10/19/22 12:00 10/19/22 13:08 10/19/22 12:00 10/19/22 12:00 10/19/22 12:00 Laboratory Results - last 24 hr 10/18/22 17:20: WBC 10.2, RBC 3.78 L, Hgb 10.7 L, Hct 33.5 L, MCV 88.7, MCH 28.4, MCHC 32.0, RDW 15.1, Plt Count 353, MPV 9.7, Neut % (Auto) 80.5 H, Lymph % (Auto) 10.9, [place] % (Auto) 7.4, Eos % (Auto) 0.8, Baso % (Auto) 0.4, Neut # (Auto) 8.2 H, Lymph # (Auto) 1.1, [place] # (Auto) 0.8, Eos # (Auto) 0.1, Baso # (Auto) 0.0 10/18/22 17:20: Sodium 136, Potassium 4.3, Chloride 98, Carbon Dioxide 26, Anion Gap 16.3 H, BUN 17, Creatinine 1.30 H, Estimated Creat Clear 43, Estimated GFR 39 L, Est GFR ( Amer) 47 L, Glucose 251 H D, Calcium 9.2, Magnesium 1.5 L D, Total Bilirubin 0.4, AST 31, ALT 23, Alkaline Phosphatase 91, Total Protein 6.8, Albumin 3.8, Globulin 3.0, Albumin/Globulin Ratio 1.3 10/19/22 05:52: WBC 7.2 D, RBC 3.57 L, Hgb 10.2 L, Hct 31.8 L, MCV 89.2, MCH 28.7, MCHC 32.2, RDW 15.0, Plt Count 323, MPV 9.0, Neut % (Auto) 72.0, Lymph % (Auto) 19.8, [place] % (Auto) 7.8, Eos % (Auto) 0.3, Baso % (Auto) 0.1, Neut # (Auto) 5.2, Lymph # (Auto) 1.4, [place] # (Auto) 0.6, Eos # (Auto) 0.0, Baso # (Auto) 0.0 10/19/22 05:52: Sodium 136, Potassium 4.6, Chloride 96 L, Carbon Dioxide 28, Anion Gap 16.6 H, BUN 21 H, Creatinine 1.20 H, Estimated Creat Clear 47, Estimated GFR 43 L, Est GFR ( Amer) 52 L, Glucose 155 H D, Calcium 8.9, Magnesium 1.7 D 10/19/22 05:52: Troponin I 0.01 10/19/22 13:34: Troponin I < 0.01 I & O for Last 24 hours: Intake & Output 10/16/22 10/17/22 10/18/22 10/19/22 23:59 23:59 23:59 23:59 Intake Total 540 / 540 600 / 600 Output Total 0 / 0 0 / 0 Balance 540 / 540 600 / 600 Weight 80.91 kg 81.873 kg *Routine HEENT Exam Head: Present normocephalic Eye: Present EOMI and normal accommodation ENT: Present mucous membranes moist *Routine Neck Exam Neck: Present supple and normal carotid upstroke *Routine Respiratory Exam Respiratory: Present decreased breath sounds, crackles and diminished air movement *Routine Cardiovascular Exam Cardiovascular: Present RRR, Normal S1, Normal S2 and JVD *Routine Abdominal Exam Abdominal: Present soft and normoactive bowel sounds; Absent rebound or guarding *Routine Rectal Exam Comments: deferred *Routine Exam Comments: deferred *Routine Extremities Exam Extremities: Present full ROM and normal capillary refill *Routine Skin Exam Skin: Present intact and warm *Routine Neurological Exam Neurological: Present alert, oriented X3 and normal speech Assessment and Plan *Assessment and plan (1) History of sleep apnea: Status: Acute Category: Medical Code(s): Z86.69 - Personal history of other diseases of the nervous system and sense organs (2) History of asthma: Status: Acute Category: Medical Code(s): Z87.09 - Personal history of other diseases of the respiratory system (3) Pleural effusion, bilateral: Status: Acute Category: Medical Code(s): J90 - Pleural effusion, not elsewhere classified (4) Pneumonia: Status: Acute Category: Medical Code(s): J18.9 - Pneumonia, unspecified organism (5) Acute respiratory failure with hypoxia: Status: Acute Category: Medical Code(s): J96.01 - Acute respiratory failure with hypoxia (6) CKD (chronic kidney disease) stage 3, GFR 30-59 ml/min: Status: Acute Category: Medical Code(s): N18.30 -
--- NOTE | 2022-10-19 14:45 | PC.NURSE ---
pt. transported to [facility] via wheelchair. Antibiotic infusion paused at this time.
--- NOTE | 2022-10-19 15:32 | EXP.PN ---
Subjective *Date: 10/19/22 *Time: 15:32 Interval history: Patient normotensive, with less gurgling and respiratory distress versus yesterday examination. Sleeping comfortably at time of exam by Dr. Cardoza this AM. Exam Data for Last 24 hours Vital signs and Labs for Last 24 Hours: Temp Pulse Resp BP Pulse Ox 97.6 F 78 18 172/76 H 93 L 10/19/22 12:00 10/19/22 13:08 10/19/22 12:00 10/19/22 12:00 10/19/22 12:00 Laboratory Results - last 24 hr 10/18/22 17:20: WBC 10.2, RBC 3.78 L, Hgb 10.7 L, Hct 33.5 L, MCV 88.7, MCH 28.4, MCHC 32.0, RDW 15.1, Plt Count 353, MPV 9.7, Neut % (Auto) 80.5 H, Lymph % (Auto) 10.9, [place] % (Auto) 7.4, Eos % (Auto) 0.8, Baso % (Auto) 0.4, Neut # (Auto) 8.2 H, Lymph # (Auto) 1.1, [place] # (Auto) 0.8, Eos # (Auto) 0.1, Baso # (Auto) 0.0 10/18/22 17:20: Sodium 136, Potassium 4.3, Chloride 98, Carbon Dioxide 26, Anion Gap 16.3 H, BUN 17, Creatinine 1.30 H, Estimated Creat Clear 43, Estimated GFR 39 L, Est GFR ( Amer) 47 L, Glucose 251 H D, Calcium 9.2, Magnesium 1.5 L D, Total Bilirubin 0.4, AST 31, ALT 23, Alkaline Phosphatase 91, Total Protein 6.8, Albumin 3.8, Globulin 3.0, Albumin/Globulin Ratio 1.3 10/19/22 05:52: WBC 7.2 D, RBC 3.57 L, Hgb 10.2 L, Hct 31.8 L, MCV 89.2, MCH 28.7, MCHC 32.2, RDW 15.0, Plt Count 323, MPV 9.0, Neut % (Auto) 72.0, Lymph % (Auto) 19.8, [place] % (Auto) 7.8, Eos % (Auto) 0.3, Baso % (Auto) 0.1, Neut # (Auto) 5.2, Lymph # (Auto) 1.4, [place] # (Auto) 0.6, Eos # (Auto) 0.0, Baso # (Auto) 0.0 10/19/22 05:52: Sodium 136, Potassium 4.6, Chloride 96 L, Carbon Dioxide 28, Anion Gap 16.6 H, BUN 21 H, Creatinine 1.20 H, Estimated Creat Clear 47, Estimated GFR 43 L, Est GFR ( Amer) 52 L, Glucose 155 H D, Calcium 8.9, Magnesium 1.7 D 10/19/22 05:52: Troponin I 0.01 10/19/22 13:34: Troponin I < 0.01 I & O for Last 24 hours: Intake & Output 10/16/22 10/17/22 10/18/22 10/19/22 23:59 23:59 23:59 23:59 Intake Total 540 / 540 600 / 600 Output Total 0 / 0 0 / 0 Balance 540 / 540 600 / 600 Weight 80.91 kg 81.873 kg
--- NOTE | 2022-10-19 18:16 | PC.NURSE ---
A&OX4. NO NEEDS OR C/O SINCE I TOOK OVER CARE FOR PT AT 1630. UP INDEPENDENT IN ROOM, VSS.
[2022-10-19 19:59] LABS: Troponin I 0.01 ng/ml (0.00-0.034)
[2022-10-20] VITALS (22 sets, daily range): BP systolic 126–180; BP diastolic 59–89; PULSE 52–81; RESP 16–21; TEMP 36.6–37.1; O2SAT 87–99; BMI 35.9
--- NOTE | 2022-10-20 05:44 | PC.NURSE ---
Pt has remained on RA t/o night tolerating well with sats >90%.
[2022-10-20 06:07] LABS: Basophils % 0.1 % (0.1-2.0); Eosinophils # 0.1 K/mm3 (0.0-0.4); Eosinophils % 0.6 % (0.1-12.0); Hematocrit 32.4 % (37.0-47.0); Hemoglobin 10.4 g/dL (12.2-16.2); Lymphocytes # 1.5 K/mm3 (0.7-4.5); Mean Corpuscular Hemoglobin 28.7 pg (27.0-31.2); Mean Corpuscular Volume 89.8 fl (81-99); Mean Platelet Volume 9.7 fl (7.4-10.4); Monocytes # 0.9 K/mm3 (0.1-1.0); Monocytes % 8.2 % (1.7-9.3); Neutrophils # 8.7 K/mm3 (1.8-7.8); Neutrophils % 78.1 % (37.0-80.0); Platelet Count 345 K/mm3 (142-424); Red Cell Distribution Width 15.1 % (11.5-17.5); White Blood Count 11.2 K/mm3 (4.8-10.8)
[2022-10-20 06:09] LABS: Chloride 94 mmol/L (98-107); Potassium 4.4 mmoL/L (3.5-5.1); Sodium 135 mmol/L (136-145)
[2022-10-20 06:12] LABS: Anion Gap 16.4 mEq/L (5-15); Blood Urea Nitrogen 39 mg/dl (7-17); Calcium 9.6 mg/dl (8.4-10.2); Carbon Dioxide 29 mmol/L (22.0-30.0); Creatinine Clearance Estimated 43 mL/min (50-200); Estimated Glomerular Filt Rate 36 ml/min (>60); GFR (African American) 44 ML/MIN (>60); Glucose 136 mg/dl (74-100); Magnesium 2.2 mg/dl (1.6-2.3)
--- NOTE | 2022-10-20 09:38 | EXP.PULM.PN ---
Subjective *Date: 10/20/22 *Time: 10:04 Interval history: No acute respiratory vents overnight. Patient admits continued improvement in her respiratory symptoms. Pulmonology Exam Inpatient Vital signs and Labs for Last 24 Hours: Temp Pulse Resp BP Pulse Ox 98.1 F 67 18 178/72 H 96 10/20/22 07:51 10/20/22 07:51 10/20/22 07:51 10/20/22 07:51 10/20/22 07:51 Laboratory Results - last 24 hr 10/19/22 13:34: Troponin I < 0.01 10/19/22 19:28: Troponin I 0.01 10/20/22 05:30: WBC 11.2 H D, RBC 3.60 L, Hgb 10.4 L, Hct 32.4 L, MCV 89.8, MCH 28.7, MCHC 32.0, RDW 15.1, Plt Count 345, MPV 9.7, Neut % (Auto) 78.1, Lymph % (Auto) 13.0, [place] % (Auto) 8.2, Eos % (Auto) 0.6, Baso % (Auto) 0.1, Neut # (Auto) 8.7 H, Lymph # (Auto) 1.5, [place] # (Auto) 0.9, Eos # (Auto) 0.1, Baso # (Auto) 0.0 10/20/22 05:30: Sodium 135 L, Potassium 4.4, Chloride 94 L, Carbon Dioxide 29, Anion Gap 16.4 H, BUN 39 H D, Creatinine 1.40 H, Estimated Creat Clear 43, Estimated GFR 36 L, Est GFR ( Amer) 44 L, Glucose 136 H, Calcium 9.6, Magnesium 2.2 D I & O for Labs for Last 24 Hours: Intake & Output 10/17/22 10/18/22 10/19/22 10/20/22 23:59 23:59 23:59 23:59 Intake Total 540 / 540 960 / 960 240 / 240 Output Total 0 / 0 0 / 0 Balance 540 / 540 960 / 960 240 / 240 Weight 178 lb 6 oz 180 lb 8 oz 195 lb 3.2 oz Constitutional: Present moderate distress Head: Present normocephalic and atraumatic ENT: Present normal exam, normal oropharynx and mucous membranes moist Neck: Present normal inspection and full ROM Respiratory: Present respiratory distress and able to speak in complete sentences; Absent prolonged expiratory phase, wheezes or crackles Cardiac: Present S1/S2, Tachycardia and radial pulses present GI: Present soft and distention; Absent tenderness or guarding Rectal (female): Present deferred (female): Present deferred Skin: Present intact; Absent cyanosis or jaundice Neuro: Present alert, awake and oriented x 3 Extremities: Present normal inspection; Absent edema, clubbing or cyanosis Psychiatric: Present normal affect and cooperative Assessment and Plan *Assessment and plan (1) Acute respiratory failure with hypoxia: Status: Acute Category: Medical Code(s): J96.01 - Acute respiratory failure with hypoxia (2) Pneumonia: Status: Acute Category: Medical Code(s): J18.9 - Pneumonia, unspecified organism (3) Pleural effusion, bilateral: Status: Acute Category: Medical Code(s): J90 - Pleural effusion, not elsewhere classified (4) History of asthma: Status: Acute Category: Medical Code(s): Z87.09 - Personal history of other diseases of the respiratory system (5) History of sleep apnea: Status: Acute Category: Medical Code(s): Z86.69 - Personal history of other diseases of the nervous system and sense organs Plan Ms. Mcneal is a 82-year-old female greater than [id number] smoking the last smoked around 1989 David diagnosis of mild intermittent asthma, allergies, history of sleep apnea diagnosed 15 years ago not compliant with her CPAP, CKD III, CAD experiencing worsening respiratory distress for the last 4 weeks treated for community-acquired pneumonia as an outpatient basis with no significant improvement clinically presented to the hospital needing new oxygen requirements and pulmonary was called for further evaluation. #Bilateral pleural effusions: #Hypoxic respiratory failure: #Pulmonary hypertension: #Community-acquired pneumonia Greater than [id number] smoking history last smoked around 1989. Carries a prior diagnosis of asthma. Denies any baseline respiratory symptoms. Diagnosis sleep apnea 15 years ago noncompliant with her CPAP machine. Witnessed snoring and apnea episodes. Presented with worsening respiratory status along with bilateral lower extremity swelling. CTA upon admission reviewed, no evidence of pulmonary embolis
--- NOTE | 2022-10-20 09:48 | EXP.CARD.PN ---
Subjective Subjective Date: 10/20/22 Time: 09:48 Principal diagnosis: palpitaitons, labile HTN, CAD Interval history: 82-year-old white female in bed in no acute distress. Some complaint of palpitations this morning. Still with labile blood pressure with systolic ranging from 120 to 180 mmHg. Renal ultrasound showed no hydronephrosis. Renal artery duplex read as normal. Prior abdominal CT shows extensive vascular calcifications of the abdominal aorta and at the takeoff of both renal arteries. 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 Patient with known prior VT and subsequent RCA stenting in 1998. Discussed results of above test with Dr. Davalos in light of the labile hypertension with recommendation for both cardiac cath and abdominal angiogram including renal arteries. Discussed with patient and she agrees to proceed. Exam Data for Last 24 hours Vital signs and Labs for Last 24 Hours: Temp Pulse Resp BP Pulse Ox 98.1 F 67 18 178/72 H 96 10/20/22 07:51 10/20/22 07:51 10/20/22 07:51 10/20/22 07:51 10/20/22 07:51 Laboratory Results - last 24 hr 10/19/22 13:34: Troponin I < 0.01 10/19/22 19:28: Troponin I 0.01 10/20/22 05:30: WBC 11.2 H D, RBC 3.60 L, Hgb 10.4 L, Hct 32.4 L, MCV 89.8, MCH 28.7, MCHC 32.0, RDW 15.1, Plt Count 345, MPV 9.7, Neut % (Auto) 78.1, Lymph % (Auto) 13.0, [place] % (Auto) 8.2, Eos % (Auto) 0.6, Baso % (Auto) 0.1, Neut # (Auto) 8.7 H, Lymph # (Auto) 1.5, [place] # (Auto) 0.9, Eos # (Auto) 0.1, Baso # (Auto) 0.0 10/20/22 05:30: Sodium 135 L, Potassium 4.4, Chloride 94 L, Carbon Dioxide 29, Anion Gap 16.4 H, BUN 39 H D, Creatinine 1.40 H, Estimated Creat Clear 43, Estimated GFR 36 L, Est GFR ( Amer) 44 L, Glucose 136 H, Calcium 9.6, Magnesium 2.2 D I & O for Last 24 hours: Intake & Output 10/17/22 10/18/22 10/19/22 10/20/22 11:59 11:59 11:59 11:59 Intake Total 900 / 900 840 / 840 Output Total 0 / 0 0 / 0 0 / 0 Balance 0 / 0 900 / 900 840 / 840 Weight 178 lb 6 oz 180 lb 8 oz 195 lb 3.2 oz Constitutional Constitutional: no acute distress *Routine Respiratory Exam Respiratory: Present CTA bilaterally *Routine Cardiovascular Exam Cardiovascular: Present RRR *Routine Extremities Exam Extremities: Absent edema Progress Note: A&P Assessment and plan (1) Acute respiratory failure with hypoxia: Status: Acute (2) Pneumonia: Status: Acute (3) Pleural effusion, bilateral: Status: Acute (4) History of asthma: Status: Acute (5) History of sleep apnea: Status: Acute Assessment and Plan Assessment and Plan for All Diagnoses:: 1.? Hypoxemia with shortness of breath secondary to combination of pneumonia and right heart failure/diastolic dysfunction Improving with antibiotics and diuretic therapy Recommended addition of spironolactone 25 mg twice daily and daily BMP Appreciate pulmonary evaluation 2.? Hypertension/diastolic dysfunction Renal ultrasound and renal duplex unremarkable but evaluation of prior abdominal/pelvis CT shows extensive vascular calcifications especially at the takeoff of both renal arteries Continue carvedilol and losartan along with verapamil 3.? History of CAD with prior VT and stenting in 1998 Clinically stable with normal troponin at this time the patient complaining of palpitations 4.? CKD, stage III with chronic anemia Creatinine 1.4 with GFR 36 and hemoglobin of 10.4 5.? Remote tobacco use with elevated right ventricular systolic pressure/pulmonary hypertension/asthma Continue diuretic therapy with addition of spironolactone Appreciate pulmonary evaluation 6.? Hypothyroidism On replacement 7.? Hyperlipidemia On statin therapy along with fenofibrate Discussed with Dr. Davalos who recommends cardiac catheterization along with abdominal angiogram including renal arteries, celiac and SMA evaluation. Patient agrees to proceed in this fashion. We will schedule for
--- NOTE | 2022-10-20 10:10 | HMH.OTEV ---
OT Inpatient Evaluation Rehab OT IP Evaluation Start: 10/19/22 14:41 Freq: ONCE Status: Active Protocol: Document 10/20/22 09:56 ELIAS (Rec: 10/20/22 10:09 ELIAS [id number]) Rehab OT IP Assessment Subjective History Patient admitted to hospital complaining of shortness of breath for several weeks. Patient visited primary care physician October 04, and diagnosed with pneumonia via chest x-ray. Patient placed on azithromycin. Patient revisited PCP today for follow -up appointment with O2 saturation noted of 85% on room air. Patient also dyspneic, with fatigability with minimal exertion. Sleeps on 1 pillow, denies orthopnea , PND. Admits to chronic swelling and right lower extremity only. 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 Garcia, with last appointment few weeks ago. Sees forwarder operator due to myocardial infarction with stent placed 1998. Also admits to asthma, but denies any recent exacerbation/ hospitalizations for asthma issues. Patient lives alone in 1 story home with no EJ. Patient completes all ADLs and fx'l mobility independently. Patient is currently driving. Completes all housekeeping tasks independently. Subjective I can get up. Analysis Patient's fx'l mobility of bed mobility, transfers, ADLs and IADLs independently. Patient continues to drive. Objective Patient Orientation Person,Place,Name,Year Upper Extremity Gross ROM WFL Bed Mobility bed mobility - supine/sit Assist Level Independent Transfer Training Sit/Stand Transfer,Sit/Stand/ Step Transfer Assist Level Independent C
--- NOTE | 2022-10-20 10:21 | SW/DCPLANNER ---
Addendum entered by [facility] 10/22/22 14:01: Per Briseyda w/ [facility] services will start Tuesday10/25/22. Addendum entered by [facility] 10/22/22 11:32: Patient prefers to use [facility]. The plan for this patient is to discharge home today. Patient information/order will be faxed to [facility]. Addendum entered by [facility] 10/21/22 14:12: Patient did well w/ PT and will be able to discharge home. Home health services will be set up at time of discharge. Discharge date is unknown at this time. Addendum entered by [facility] 10/21/22 10:29: Patient is now open to the discharge plan of SNF at [facility] and if denied she would prefer to discharge home with home health services. Patient information will be faxed to [facility] today. Patient may be ready for discharge tomorrow. Original Note: PT/OT evaluated patient and recommended home with home health services. I did speak with patient regarding home health services: patient is not agreeable to home health services at this time. Patient does not feel that she needs home health services at this time.
--- NOTE | 2022-10-20 10:24 | HMH.PTEV ---
Physical Therapy Evaluation Rehab PT IP Evaluation Start: 10/19/22 14:41 Freq: ONCE Status: Active Protocol: Document 10/20/22 10:00 MERYL (Rec: 10/20/22 10:24 MERYL [id number]) Subjective/History History History 82 yowf adm to [facility] with resp failure and general weakness. She has hx of DDD and Asthma. She reports she lives alone, 5 steps to enter the home with rail, and she generally is independent with all mobility without AD, however she does have a cane and a walker for use if necessary at home. Subjective Subjective She reports feeling better, but continues to feel slightly weak. Rehab PT IP Eval Objective Appearance Patient Behavior Appropriate Patient Orientation Person,Place,Time Difficulty following instructions none Speech Pattern Clear Ambulation Patient Able to Ambulate Yes Ambulation Observation IP General Gait Pattern Observation No Deviations/Normal Ambulation Distance (feet) 100 Ambulation Assistive Device None Ambulation Ability Independent Balance Ability to Arise Able, uses arms to help Sitting Balance Steady, safe Standing Balance Steady, wide stance Dynamic Sitting Balance Ability Good Dynamic Standing Balance Ability Good Transfers Bed Transfer Ability Independent Chair Transfer Ability Independent Sit to Stand Bed Transfer Ability Independent Sit to Stand Chair Transfer Ability Independent ROM All Extremities PT ROM Status WFL MMT All Extremities PT MMT WFL Rehab PT IP prob,goals,plan Problems Date of Evaluation: 10/20/22 Discharge Plan PT Discharge Plan Pt is currently appropriate to return home once medically stable for d/c. No current inpatient therapy needs. G -code Required No Eval Complexity Eval Charge Codes 05386 - High Complexity PHYSICIAN CERTIFICATION: I certify the specified therapy services for Dianne Mcneal are required, authorized, and reviewed every 30 days.
--- NOTE | 2022-10-20 10:50 | IR_ITS ---
APPROVED REPORT Patient Location: Inpatient PROCEDURES Selective coronary angiogram Drug-eluting stent deployment to the proximal mid and distal right coronary artery in a contiguous manner Bilateral selective renal angiography Bare-metal stent deployment to the left renal artery Drug-eluting stent deployment to the distal left renal artery Informed consent was obtained prior to the procedure. COMPLICATIONS None Estimated Blood Loss: Less than 10 mls TECHNIQUE One percent lidocaine used to anesthetize the right anterior aspect of the wrist. The right radial artery was accessed via the Seldinger technique. A 6 Latvian sheath was placed in the right radial artery. 150 mg magnesium sulfate, 800 mcg of nitroglycerin, 1mg Lidocaine and 5000 U Heparin were given through the arterial sheath. The papa catheter was also used to perform selective coronary angiography. At the end the diagnostic angiogram therapeutic heparin was administered giving a therapeutic ACT and the guide catheter was placed in the right coronary followed by Choice PT export wire. 3 mm x 38 mm Gerardo frontier stent was deployed at 20 pau reducing the stenosis. An additional 3 oh by 18 mm Gerardo frontier stent was then deployed at 12 pau distal to the for stent yet still overlapping it. The balloon was brought back deployed at 22 pau to post dilate mesh the 2 stents. CROW-3 flow was present before and after the procedure. Following this the guide catheter was placed down the descending aorta and used to perform left renal artery angiography. Because of the severe stenosis the Choice PT extra-support wire was placed distally and a 6 mm x 12 mm Herculink stent was deployed at 12 pau. There was a geographical mass on the ostium therefore an additional 6 mm x 15 mm Herculink stent was placed proximal and ostially to the stent yet still overlapping and deployed at 14 pau. There was a significant stepdown in the [place] vessel distally therefore a 4.5 x 12 mm Gerardo frontier stent was deployed at 20 pau distally and then brought back and deployed at 30 pau to mesh the stent to the larger 6 mm stent. Excellent angiograph results were obtained with excellent distal transitioning. At the end the procedure the apparatus was removed the sheath was removed and hemostasis was achieved and TR banding patient was transferred the postop putting in stable condition ANGIOGRAPHIC RESULTS The left main artery Normal The left anterior descending artery Has proximal 20 to 30% smooth stenosis The circumflex artery Nondominant normal The right coronary artery Dominant and has proximal and mid vessel 80% diffuse concentric stenoses The WHELAN ventriculogram reveals Not performed The left ventricular end-diastolic pressure Not measured Left renal artery is singular and has an ostial concentric 70% stenosis Right renal artery singular and has an ostial 40 to 50% stenosis with a 10% gradient upon pullback with a 6 Latvian catheter IMPRESSION Severe single-vessel coronary disease in the dominant right coronary artery with successful percutaneous revascularization reducing the severe stenosis to 0% with 2 contiguous drug-eluting stents Severe left renal artery stenosis with successful stenting reducing the ostial proximal mid segment to 0% with 3 drug-eluting stents (2 bare-metal stents and 1 drug-eluting stent) Mild to moderate right renal artery stenosis PLAN 1. Dual antiplatelet therapy 2. Because of the copious contrast used in the presence of renal insufficiency it was decided not to investigate the celiac stenosis and SMA stenosis at this time 3. Cardiac rehabilitation 4. Control of hypertension 5. Risk factor modification 6. LDL less than 55 to be achiev
[2022-10-20 15:15] LABS: CATHL Activated Clotting Time 264 SEC (74-125)
--- NOTE | 2022-10-20 16:29 | EXP.PN ---
Subjective *Date: 10/20/22 *Time: 16:42 Interval history: Patient received cardiac catheterization and angiogram of coronary/renal vessels. Patient's status post right RCA stents and left renal artery stent placement. Slightly lethargic after conscious sedation but in no acute distress. Patient O2 saturation is still below 88% on room air for prolonged periods of time. Exam Data for Last 24 hours Vital signs and Labs for Last 24 Hours: Temp Pulse Resp BP Pulse Ox 97.9 F 55 L 18 147/70 H 90 L 10/20/22 12:56 10/20/22 15:00 10/20/22 15:00 10/20/22 15:00 10/20/22 15:00 Laboratory Results - last 24 hr 10/19/22 19:28: Troponin I 0.01 10/20/22 05:30: WBC 11.2 H D, RBC 3.60 L, Hgb 10.4 L, Hct 32.4 L, MCV 89.8, MCH 28.7, MCHC 32.0, RDW 15.1, Plt Count 345, MPV 9.7, Neut % (Auto) 78.1, Lymph % (Auto) 13.0, [place] % (Auto) 8.2, Eos % (Auto) 0.6, Baso % (Auto) 0.1, Neut # (Auto) 8.7 H, Lymph # (Auto) 1.5, [place] # (Auto) 0.9, Eos # (Auto) 0.1, Baso # (Auto) 0.0 10/20/22 05:30: Sodium 135 L, Potassium 4.4, Chloride 94 L, Carbon Dioxide 29, Anion Gap 16.4 H, BUN 39 H D, Creatinine 1.40 H, Estimated Creat Clear 43, Estimated GFR 36 L, Est GFR ( Amer) 44 L, Glucose 136 H, Calcium 9.6, Magnesium 2.2 D 10/20/22 14:19: Activated Clotting Time 264 H* Temp Pulse Resp BP Pulse Ox 98.1 F 67 18 178/72 H 96 10/20/22 07:51 10/20/22 07:51 10/20/22 07:51 10/20/22 07:51 10/20/22 07:51 Laboratory Results - last 24 hr 10/19/22 13:34: Troponin I < 0.01 10/19/22 19:28: Troponin I 0.01 10/20/22 05:30: WBC 11.2 H D, RBC 3.60 L, Hgb 10.4 L, Hct 32.4 L, MCV 89.8, MCH 28.7, MCHC 32.0, RDW 15.1, Plt Count 345, MPV 9.7, Neut % (Auto) 78.1, Lymph % (Auto) 13.0, [place] % (Auto) 8.2, Eos % (Auto) 0.6, Baso % (Auto) 0.1, Neut # (Auto) 8.7 H, Lymph # (Auto) 1.5, [place] # (Auto) 0.9, Eos # (Auto) 0.1, Baso # (Auto) 0.0 10/20/22 05:30: Sodium 135 L, Potassium 4.4, Chloride 94 L, Carbon Dioxide 29, Anion Gap 16.4 H, BUN 39 H D, Creatinine 1.40 H, Estimated Creat Clear 43, Estimated GFR 36 L, Est GFR ( Amer) 44 L, Glucose 136 H, Calcium 9.6, Magnesium 2.2 D I & O for Last 24 hours: Intake & Output 10/17/22 10/18/22 10/19/22 10/20/22 23:59 23:59 23:59 23:59 Intake Total 540 / 540 960 / 960 240 / 240 Output Total 0 / 0 0 / 0 600 / 600 Balance 540 / 540 960 / 960 -360 / -360 Weight 80.91 kg 81.873 kg 88.541 kg Intake & Output 10/17/22 10/18/22 10/19/22 10/20/22 11:59 11:59 11:59 11:59 Intake Total 900 / 900 840 / 840 Output Total 0 / 0 0 / 0 0 / 0 Balance 0 / 0 900 / 900 840 / 840 Weight 178 lb 6 oz 180 lb 8 oz 195 lb 3.2 oz Microbiology Reports for the Last 24 Hours: Microbiology 10/18/22 14:32 Blood Blood Culture - Preliminary NO GROWTH AFTER 48 HOURS 10/18/22 11:56 Blood Blood Culture - Preliminary NO GROWTH AFTER 48 HOURS Constitutional Constitutional: no acute distress *Routine HEENT Exam Head: Present normocephalic and atraumatic Eye: Present EOMI ENT: Present mucous membranes moist *Routine Neck Exam Neck: Present supple and full ROM *Routine Respiratory Exam Respiratory: Present accessory muscle use and CTA bilaterally *Routine Cardiovascular Exam Cardiovascular: Present RRR, Normal S1 and Normal S2 *Routine Abdominal Exam Abdominal: Present soft and normoactive bowel sounds *Routine Rectal Exam Comments: deferred *Routine Exam Comments: deferred *Routine Extremities Exam Extremities: Present full ROM; Absent edema *Routine Skin Exam Skin: Present intact and warm *Routine Neurological Exam Neurological: Present alert and normal reflexes Routine Psychiatric Exam Psychiatric: Present normal affect Assessment and Plan *Assessment and plan (1) Diastolic heart failure: Status: Acute Category: Medical Code(s): I50.30 - Unspecified diastolic (congestive) heart failure (2) Right-sided congestive heart fail
--- NOTE | 2022-10-20 18:18 | PC.NURSE ---
No complaints noted. Patient returned from heart cath. No complications noted. VS stable, patient on 2LNC for comfort.
--- NOTE | 2022-10-20 20:29 | PC.NURSE ---
Patient was complaining of SOB, Patient currently on 2L NC stating 99%, lungs clear upon exam. Patient wanted RN to notify ASSISTANT SUPERINTENDENT of the SOB, RN notifed ASSISTANT SUPERINTENDENT emergency response technician and stated the patient complaint. ASSISTANT SUPERINTENDENT was made aware of the SOB and did not ordered anything. Patient made aware that a medication Burlina she took today can cause SOB as a side effect. RN increased O2 3L NC for patient comfort.
[2022-10-21] VITALS (14 sets, daily range): BP systolic 129–178; BP diastolic 53–92; PULSE 50–66; RESP 17–20; TEMP 36.4–36.8; O2SAT 90–99; BMI 35.6; BMI 35.3
--- NOTE | 2022-10-21 03:45 | PC.NURSE ---
Sputum specimen collected at this time.
--- NOTE | 2022-10-21 04:34 | PC.NURSE ---
Patient has rested after the episode of SOB earlier in the shift (see other nurses note). Has had no other complaints. Has been up to use the restroom, still on 2L NC for comfort.
[2022-10-21 06:34] LABS: Chloride 97 mmol/L (98-107); Potassium 4.5 mmoL/L (3.5-5.1); Sodium 136 mmol/L (136-145)
[2022-10-21 06:36] LABS: Blood Urea Nitrogen 39 mg/dl (7-17); Creatinine Clearance Estimated 46 mL/min (50-200); Estimated Glomerular Filt Rate 39 ml/min (>60); GFR (African American) 47 ML/MIN (>60)
[2022-10-21 06:37] LABS: Anion Gap 10.5 mEq/L (5-15); Basophils % 0.1 % (0.1-2.0); Calcium 9.1 mg/dl (8.4-10.2); Carbon Dioxide 33 mmol/L (22.0-30.0); Eosinophils % 0.2 % (0.1-12.0); Glucose 95 mg/dl (74-100); Hematocrit 32.3 % (37.0-47.0); Hemoglobin 10.5 g/dL (12.2-16.2); Lymphocytes # 2.7 K/mm3 (0.7-4.5); Lymphocytes % 23.1 % (10-50); Magnesium 2.1 mg/dl (1.6-2.3); Mean Corpuscular HGB Conc 32.4 g/dL (31.8-35.4); Mean Corpuscular Hemoglobin 28.8 pg (27.0-31.2); Mean Corpuscular Volume 88.8 fl (81-99); Mean Platelet Volume 9.3 fl (7.4-10.4); Monocytes # 0.9 K/mm3 (0.1-1.0); Monocytes % 8.2 % (1.7-9.3); Neutrophils # 7.9 K/mm3 (1.8-7.8); Neutrophils % 68.6 % (37.0-80.0); Platelet Count 351 K/mm3 (142-424); Red Blood Count 3.64 M/mm3 (4.20-5.40); White Blood Count 11.5 K/mm3 (4.8-10.8)
--- NOTE | 2022-10-21 09:08 | EXP.CARD.PN ---
Subjective Subjective Date: 10/21/22 Time: 09:19 Principal diagnosis: palpitaitons, labile HTN, CAD Interval history: 82-year-old white female in bed in no acute distress. She does complain of some shortness of breath overnight along with some mild hemoptysis. Nursing relates concern for bradycardia overnight with heart rates down to 50 bpm. Exam Data for Last 24 hours Vital signs and Labs for Last 24 Hours: Temp Pulse Resp BP Pulse Ox 97.6 F 56 L 20 178/61 H 95 10/21/22 07:50 10/21/22 07:50 10/21/22 07:50 10/21/22 07:50 10/21/22 07:50 Laboratory Results - last 24 hr 10/20/22 14:19: Activated Clotting Time 264 H* 10/21/22 05:58: WBC 11.5 H, RBC 3.64 L, Hgb 10.5 L, Hct 32.3 L, MCV 88.8, MCH 28.8, MCHC 32.4, RDW 15.0, Plt Count 351, MPV 9.3, Neut % (Auto) 68.6, Lymph % (Auto) 23.1, [place] % (Auto) 8.2, Eos % (Auto) 0.2, Baso % (Auto) 0.1, Neut # (Auto) 7.9 H, Lymph # (Auto) 2.7, [place] # (Auto) 0.9, Eos # (Auto) 0.0, Baso # (Auto) 0.0 10/21/22 05:58: Sodium 136, Potassium 4.5, Chloride 97 L, Carbon Dioxide 33 H, Anion Gap 10.5, BUN 39 H, Creatinine 1.30 H, Estimated Creat Clear 46, Estimated GFR 39 L, Est GFR ( Amer) 47 L, Glucose 95, Calcium 9.1, Magnesium 2.1 I & O for Last 24 hours: Intake & Output 10/18/22 10/19/22 10/20/22 10/21/22 11:59 11:59 11:59 11:59 Intake Total 900 / 900 840 / 840 650 / 650 Output Total 0 / 0 0 / 0 0 / 0 1500 / 1500 Balance 0 / 0 900 / 900 840 / 840 -850 / -850 Weight 178 lb 6 oz 180 lb 8 oz 195 lb 3.2 oz 193 lb 14.4 oz Microbiology Reports for the Last 24 Hours: Microbiology 10/21/22 03:44 Sputum - Expectorated Sputum Gram Stain - Final 10/18/22 14:32 Blood Blood Culture - Preliminary NO GROWTH AFTER 48 HOURS 10/18/22 11:56 Blood Blood Culture - Preliminary NO GROWTH AFTER 48 HOURS Constitutional Constitutional: no acute distress *Routine Respiratory Exam Respiratory: Present wheezes *Routine Cardiovascular Exam Cardiovascular: Present RRR *Routine Extremities Exam Extremities: Absent edema Progress Note: A&P Assessment and plan (1) Diastolic heart failure: Status: Acute (2) Right-sided congestive heart failure: Status: Acute (3) History of sleep apnea: Status: Acute (4) History of asthma: Status: Acute (5) Acute respiratory failure with hypoxia: Status: Acute (6) CKD (chronic kidney disease) stage 3, GFR 30-59 ml/min: Status: Acute (7) CAD (coronary artery disease): Status: Acute (8) Renal artery stenosis: Status: Acute (9) History of stent insertion of renal artery: Status: Acute Assessment and Plan Assessment and Plan for All Diagnoses:: 1.? Hypoxemia with shortness of breath secondary to combination of pneumonia, CAD and right heart failure/diastolic dysfunction Improving with antibiotics, diuretic therapy and coronary stenting yesterday Appreciate pulmonary evaluation complaint of SOA overnight. Will stop brilinta and switch to plavix. 2.? Hypertension/diastolic dysfunction ALEXIS with left renal stenting 10/20/2022 Continue carvedilol and losartan Will stop verapamil due to bradycardia and use amlodipine for additional BP control if needed. 3.? History of CAD with prior SD and stenting in 1998 DEYA to RCA, 10/20/2022 DAPT with aspirin and 4.? CKD, stage III with chronic anemia Creatinine 1.3 with GFR 39 and hemoglobin of 10.5 5.? Remote tobacco use with elevated right ventricular systolic pressure/pulmonary hypertension/asthma Continue diuretic therapy Appreciate pulmonary evaluation 6.? Hypothyroidism On replacement check thyroid panel 7.? Hyperlipidemia On statin therapy along with fenofibrate check lipids Continue to monitor patient overnight due to multiple issues and medication changes. Anticipate that she would be discharged tomorrow if feeling better.
[2022-10-21 09:37] LABS: Chol/HDL Ratio 1.5 (1-3.5); Cholesterol 158 mg/dl (140-200); HDL Cholesterol 106 mg/dl (40-60); Triglycerides 188 mg/dl (30-150); VLDL Cholesterol 38 mg/dL (0-40)
[2022-10-21 09:48] LABS: Direct LDL Cholesterol 52.08 mg/dL (100-129)
--- NOTE | 2022-10-21 09:50 | ECG_ITS ---
APPROVED REPORT Exam: Resting ECG HR:53 bpm ECG Measurements Heart Rate 53 AXES MT 184 P 70 QRSd 112 QRS 49 QT 460 T -8 QTc 444 Conclusion SINUS BRADYCARDIA INCOMPLETE RIGHT BUNDLE BRANCH BLOCK [90+ ms QRS DURATION, TERMINAL R IN V1/V2, 40+ ms S IN I/aVL/V4/V5/V6] NONSPECIFIC ST & T-WAVE ABNORMALITY BORDERLINE ECG UNCONFIRMED REPORT Electronically signed by : Kalia Miranda MD 10/21/2022 20:07:34
[2022-10-21 09:55] LABS: Free Thyroxine Index 3.6 ug/dL (5.93-13.13); T4 (Thyroxine) 10.5 ug/dl (5.53-11.0); Triiodothryronine (T3) Uptake 34 % (23.5-40.5)
--- NOTE | 2022-10-21 10:01 | EXP.PULM.PN ---
Subjective *Date: 10/21/22 *Time: 10:01 Interval history: Patient admits worsening respiratory distress with increasing chest tightness and wheezing and difficulty breathing. Pulmonology Exam Inpatient Vital signs and Labs for Last 24 Hours: Temp Pulse Resp BP Pulse Ox 97.6 F 56 L 20 178/61 H 95 10/21/22 07:50 10/21/22 07:50 10/21/22 07:50 10/21/22 07:50 10/21/22 07:50 Laboratory Results - last 24 hr 10/20/22 14:19: Activated Clotting Time 264 H* 10/21/22 05:58: WBC 11.5 H, RBC 3.64 L, Hgb 10.5 L, Hct 32.3 L, MCV 88.8, MCH 28.8, MCHC 32.4, RDW 15.0, Plt Count 351, MPV 9.3, Neut % (Auto) 68.6, Lymph % (Auto) 23.1, [place] % (Auto) 8.2, Eos % (Auto) 0.2, Baso % (Auto) 0.1, Neut # (Auto) 7.9 H, Lymph # (Auto) 2.7, [place] # (Auto) 0.9, Eos # (Auto) 0.0, Baso # (Auto) 0.0 10/21/22 05:58: Sodium 136, Potassium 4.5, Chloride 97 L, Carbon Dioxide 33 H, Anion Gap 10.5, BUN 39 H, Creatinine 1.30 H, Estimated Creat Clear 46, Estimated GFR 39 L, Est GFR ( Amer) 47 L, Glucose 95, Calcium 9.1, Magnesium 2.1 10/21/22 05:58: Triglycerides 188 H, Cholesterol 158, LDL Cholesterol Direct 52.08 L, VLDL Cholesterol 38, HDL Cholesterol 106 H, Cholesterol/HDL Ratio 1.5 10/21/22 05:58: Free T4 Index 3.6 L, Thyroxine (T4) 10.5, T3 Uptake 34 I & O for Labs for Last 24 Hours: Intake & Output 10/18/22 10/19/22 10/20/22 10/21/22 23:59 23:59 23:59 23:59 Intake Total 540 / 540 960 / 960 530 / 530 360 / 360 Output Total 0 / 0 0 / 0 1100 / 1100 400 / 400 Balance 540 / 540 960 / 960 -570 / -570 -40 / -40 Weight 178 lb 6 oz 180 lb 8 oz 195 lb 3.2 oz 193 lb 14.4 oz Microbiology Reports for the Last 24 Hours: Microbiology 10/21/22 03:44 Sputum - Expectorated Sputum Gram Stain - Final 10/18/22 14:32 Blood Blood Culture - Preliminary NO GROWTH AFTER 48 HOURS 10/18/22 11:56 Blood Blood Culture - Preliminary NO GROWTH AFTER 48 HOURS Constitutional: Present moderate distress Head: Present normocephalic and atraumatic ENT: Present normal exam, normal oropharynx and mucous membranes moist Neck: Present normal inspection and full ROM Respiratory: Present respiratory distress, wheezes and able to speak in complete sentences; Absent prolonged expiratory phase or crackles Cardiac: Present S1/S2, Tachycardia and radial pulses present GI: Present soft and distention; Absent tenderness or guarding Rectal (female): Present deferred (female): Present deferred Skin: Present intact; Absent cyanosis or jaundice Neuro: Present alert, awake and oriented x 3 Extremities: Present normal inspection; Absent edema, clubbing or cyanosis Psychiatric: Present normal affect and cooperative Assessment and Plan *Assessment and plan (1) Acute respiratory failure with hypoxia: Status: Acute Category: Medical Code(s): J96.01 - Acute respiratory failure with hypoxia (2) Pneumonia: Status: Acute Category: Medical Code(s): J18.9 - Pneumonia, unspecified organism (3) Pleural effusion, bilateral: Status: Acute Category: Medical Code(s): J90 - Pleural effusion, not elsewhere classified (4) History of asthma: Status: Acute Category: Medical Code(s): Z87.09 - Personal history of other diseases of the respiratory system (5) History of sleep apnea: Status: Acute Category: Medical Code(s): Z86.69 - Personal history of other diseases of the nervous system and sense organs Plan Ms. Mcneal is a 82-year-old female greater than [id number] smoking the last smoked around 1989 David diagnosis of mild intermittent asthma, allergies, history of sleep apnea diagnosed 15 years ago not compliant with her CPAP, CKD III, CAD experiencing worsening respiratory distress for the last 4 weeks treated for community-acquired pneumonia as an outpatient basis with no significant improvement clinically presented to the hospital needing new
[2022-10-21 10:08] LABS: Thyroid Stimulating Hormone 1.16 uIU/mL (0.465-4.68)
--- NOTE | 2022-10-21 12:22 | EXP.PHA.PN ---
Subjective *Date: 10/21/22 *Time: 12:22 Medical Exam Vital signs and Labs for Last 24 Hours: Vital Signs Temp Pulse Pulse Resp BP Pulse Ox 10/21/22 11:34 98.0 F 62 18 158/53 H 96 10/21/22 10:12 50 L 10/21/22 10:12 51 L 10/21/22 10:12 97 10/21/22 07:50 97.6 F 56 L 20 178/61 H 95 10/21/22 04:00 50 L 10/21/22 04:00 97.8 F 52 L 17 150/61 H 97 10/21/22 00:00 50 L 10/21/22 00:00 97.5 F L 54 L 17 149/62 H 99 10/20/22 22:08 54 L 20 147/69 H 98 10/20/22 21:00 98.1 F 55 L 20 146/81 H 10/20/22 20:00 60 10/20/22 20:00 61 20 160/71 H 98 10/20/22 19:00 58 L 20 168/61 H 99 10/20/22 18:00 65 21 150/59 H 99 10/20/22 17:30 68 21 180/80 H 98 10/20/22 17:00 52 L 19 172/89 H 98 10/20/22 16:00 57 L 18 161/78 H 97 10/20/22 15:45 63 18 165/80 H 98 10/20/22 15:30 63 19 159/71 H 87 L 10/20/22 16:30 60 17 167/75 H 98 10/20/22 15:15 98.8 F 57 L 19 169/81 H 92 L 10/20/22 16:08 60 10/20/22 15:00 55 L 18 147/70 H 90 L 10/20/22 14:55 60 18 153/84 H 89 L 10/20/22 14:50 60 18 153/82 H 88 L 10/20/22 14:45 65 18 148/81 H 91 L 10/20/22 14:45 65 10/20/22 12:56 97.9 F 52 L 18 169/71 H 92 L Intake and Output 10/20/22 10/21/22 10/21/22 23:59 07:59 15:59 Intake Total 290 / 530 360 / 360 Output Total 500 / 1100 400 / 700 300 / 700 Balance -210 / -570 -400 / -340 60 / -340 Intake: Intake, Oral Amount 240 / 480 360 / 360 Intake, Total IV Amount 50 / 50 Ceftriaxone Sodium 1 gm In 0.9 50 / 50 % Sodium Chloride 50 ml @ 100 mls/hr IV Q24H [facility] Rx#:[id number] Output: Output, Urine Amount 500 / 1100 400 / 700 300 / 700 Other: Number of Unmeasured Voids 1 1 Weight 87.952 kg 87 kg Patient Weight 10/21/22 23:59 Weight 87 kg Laboratory Results - last 24 hr 10/20/22 14:19: Activated Clotting Time 264 H* 10/21/22 05:58: WBC 11.5 H, RBC 3.64 L, Hgb 10.5 L, Hct 32.3 L, MCV 88.8, MCH 28.8, MCHC 32.4, RDW 15.0, Plt Count 351, MPV 9.3, Neut % (Auto) 68.6, Lymph % (Auto) 23.1, [place] % (Auto) 8.2, Eos % (Auto) 0.2, Baso % (Auto) 0.1, Neut # (Auto) 7.9 H, Lymph # (Auto) 2.7, [place] # (Auto) 0.9, Eos # (Auto) 0.0, Baso # (Auto) 0.0 10/21/22 05:58: Sodium 136, Potassium 4.5, Chloride 97 L, Carbon Dioxide 33 H, Anion Gap 10.5, BUN 39 H, Creatinine 1.30 H, Estimated Creat Clear 46, Estimated GFR 39 L, Est GFR ( Amer) 47 L, Glucose 95, Calcium 9.1, Magnesium 2.1 10/21/22 05:58: Triglycerides 188 H, Cholesterol 158, LDL Cholesterol Direct 52.08 L, VLDL Cholesterol 38, HDL Cholesterol 106 H, Cholesterol/HDL Ratio 1.5 10/21/22 05:58: TSH 1.16, Free T4 Index 3.6 L, Thyroxine (T4) 10.5, T3 Uptake 34 I & O for Labs for Last 24 Hours: Intake & Output 10/18/22 10/19/22 10/20/22 10/21/22 23:59 23:59 23:59 23:59 Intake Total 540 / 540 960 / 960 530 / 530 360 / 360 Output Total 0 / 0 0 / 0 1100 / 1100 700 / 700 Balance 540 / 540 960 / 960 -570 / -570 -340 / -340 Weight 80.91 kg 81.873 kg 88.541 kg 87 kg Microbiology Reports for the Last 24 Hours: Microbiology 10/21/22 03:44 Sputum - Expectorated Sputum Gram Stain - Final 10/18/22 14:32 Blood Blood Culture - Preliminary NO GROWTH AFTER 48 HOURS 10/18/22 11:56 Blood Blood Culture - Preliminary NO GROWTH AFTER 48 HOURS The patient's infection will respond to the chosen ABx?: Yes (empiric therapy for resp failure) Is the patient receiving the right drug, dose, and route?: Yes Could a more targeted ABx be ordered?: No (cultures still pending)
--- NOTE | 2022-10-21 13:05 | EXP.PN ---
Subjective *Date: 10/21/22 *Time: 13:09 Interval history: Patient had bradycardia and productive brown/bloody sputum issues overnight. Complains of some coughing overnight. Unable to wean patient from oxygen overnight due to dyspnea issues. Exam Data for Last 24 hours Vital signs and Labs for Last 24 Hours: Temp Pulse Resp BP Pulse Ox 98.0 F 62 18 158/53 H 96 10/21/22 11:34 10/21/22 11:34 10/21/22 11:34 10/21/22 11:34 10/21/22 11:34 Laboratory Results - last 24 hr 10/20/22 14:19: Activated Clotting Time 264 H* 10/21/22 05:58: WBC 11.5 H, RBC 3.64 L, Hgb 10.5 L, Hct 32.3 L, MCV 88.8, MCH 28.8, MCHC 32.4, RDW 15.0, Plt Count 351, MPV 9.3, Neut % (Auto) 68.6, Lymph % (Auto) 23.1, [place] % (Auto) 8.2, Eos % (Auto) 0.2, Baso % (Auto) 0.1, Neut # (Auto) 7.9 H, Lymph # (Auto) 2.7, [place] # (Auto) 0.9, Eos # (Auto) 0.0, Baso # (Auto) 0.0 10/21/22 05:58: Sodium 136, Potassium 4.5, Chloride 97 L, Carbon Dioxide 33 H, Anion Gap 10.5, BUN 39 H, Creatinine 1.30 H, Estimated Creat Clear 46, Estimated GFR 39 L, Est GFR ( Amer) 47 L, Glucose 95, Calcium 9.1, Magnesium 2.1 10/21/22 05:58: Triglycerides 188 H, Cholesterol 158, LDL Cholesterol Direct 52.08 L, VLDL Cholesterol 38, HDL Cholesterol 106 H, Cholesterol/HDL Ratio 1.5 10/21/22 05:58: TSH 1.16, Free T4 Index 3.6 L, Thyroxine (T4) 10.5, T3 Uptake 34 I & O for Last 24 hours: Intake & Output 10/18/22 10/19/22 10/20/22 10/21/22 23:59 23:59 23:59 23:59 Intake Total 540 / 540 960 / 960 530 / 530 360 / 360 Output Total 0 / 0 0 / 0 1100 / 1100 700 / 700 Balance 540 / 540 960 / 960 -570 / -570 -340 / -340 Weight 80.91 kg 81.873 kg 88.541 kg 87 kg Microbiology Reports for the Last 24 Hours: Microbiology 10/21/22 03:44 Sputum - Expectorated Sputum Gram Stain - Final 10/18/22 14:32 Blood Blood Culture - Preliminary NO GROWTH AFTER 48 HOURS 10/18/22 11:56 Blood Blood Culture - Preliminary NO GROWTH AFTER 48 HOURS Constitutional Constitutional: no acute distress *Routine HEENT Exam Head: Present normocephalic and atraumatic Eye: Present EOMI ENT: Present mucous membranes moist *Routine Neck Exam Neck: Present supple and full ROM *Routine Respiratory Exam Respiratory: Present decreased breath sounds and diminished air movement; Absent accessory muscle use *Routine Cardiovascular Exam Cardiovascular: Present RRR and Normal S1 *Routine Abdominal Exam Abdominal: Present soft and normoactive bowel sounds; Absent rebound or guarding *Routine Rectal Exam Comments: deferred *Routine Exam Comments: deferred *Routine Extremities Exam Extremities: Present full ROM and normal capillary refill *Routine Skin Exam Skin: Present intact and warm *Routine Neurological Exam Neurological: Present alert, oriented X3 and moving all extremities Routine Psychiatric Exam Psychiatric: Present normal affect and normal thought process; Absent suicidal ideation or homicidal ideation Assessment and Plan *Assessment and plan (1) Acute respiratory failure with hypoxia: Status: Acute Category: Medical Code(s): J96.01 - Acute respiratory failure with hypoxia (2) Pneumonia: Status: Acute Category: Medical Code(s): J18.9 - Pneumonia, unspecified organism (3) Pleural effusion, bilateral: Status: Acute Category: Medical Code(s): J90 - Pleural effusion, not elsewhere classified (4) History of asthma: Status: Acute Category: Medical Code(s): Z87.09 - Personal history of other diseases of the respiratory system (5) History of sleep apnea: Status: Acute Category: Medical Code(s): Z86.69 - Personal history of other diseases of the nervous system and sense organs Plan Shortness of breath secondary to resolving pneumonia and acute right-sided/diastolic heart failure exacerbation: ? CTA chest showed no signs of PE, pneumonia, or p
--- NOTE | 2022-10-21 14:13 | HMH.IPREAS ---
Rehab IP Re-assessment Rehab IP Re-assessment Start: 10/21/22 14:10 Freq: Status: Active Protocol: Document 10/21/22 14:11 [email or web address] (Rec: 10/21/22 14:13 PHORNE [id number]) E-signed By Navin Romo, PT Subjective Subjective Subjective 82 yowf adm to [facility] with resp failure and general weakness. She has hx of DDD and Asthma. She reports she lives alone, 5 steps to enter the home with rail, and she generally is independent with all mobility without AD, however she does have a cane and a walker for use if necessary at home. Cardiac Cath 1 day ago with 5 stents placed. Rehab IP PT Reassessment Eval Objective Appearance Patient Behavior Appropriate Patient Orientation Person,Place,Time Difficulty following instructions none Speech Pattern Clear Ambulation Patient Able to Ambulate Yes Ambulation Observation IP General Gait Pattern Observation No Deviations/Normal Ambulation Distance (feet) 75 Ambulation Assistive Device None Ambulation Ability Independent Balance Ability to Arise Able, uses arms to help Sitting Balance Steady, safe Standing Balance Steady, wide stance Dynamic Sitting Balance Ability Good Dynamic Standing Balance Ability Fair Transfers Bed Transfer Ability Independent Chair Transfer Ability Independent Sit to Stand Bed Transfer Ability Independent Sit to Stand Chair Transfer Ability Independent ROM All Extremities PT ROM Status WFL MMT All Extremities PT MMT WFL Rehab IP PT Reassessment of problems, goals, plan Problems Date of Evaluation: 10/21/22 Discharge Plan PT Discharge Plan Pt remains appropriate to return home once medically stable for d/c. Recommend Home Health as appropriate after d /c, with possible cardiac rehab as outpatient. G -code Required No IP Reassessment Inpatient Rehab Reassessment Performed Yes PHYSICIAN CERTIFICATION: I certify the specified therapy services for Dianne Mcneal are required, authorized, and reviewed every 30 days.
--- NOTE | 2022-10-21 16:42 | PC.NURSE ---
Patient room oxygen 87% at rest
--- NOTE | 2022-10-21 17:07 | PC.NURSE ---
Some SOB reported by patient on exertion. VS stable, patient on 2LNC. Room air oxygen 87% at rest. Patient on 2LNC. Lung sounds diminished but clear on ascultation.
[2022-10-22] VITALS (7 sets, daily range): BP systolic 149–160; BP diastolic 75–88; PULSE 50–79; RESP 17–18; TEMP 36.9–37.3; O2SAT 91–96; BMI 36.1
--- NOTE | 2022-10-22 04:26 | PC.NURSE ---
patient has had a much better night. Has not complained of SOB and is still on Room air. no issues were stated by patient
[2022-10-22 06:21] LABS: Basophils % 0.3 % (0.1-2.0); Eosinophils # 0.1 K/mm3 (0.0-0.4); Hematocrit 33.2 % (37.0-47.0); Hemoglobin 10.6 g/dL (12.2-16.2); Lymphocytes # 4.4 K/mm3 (0.7-4.5); Lymphocytes % 40.2 % (10-50); Mean Corpuscular HGB Conc 31.9 g/dL (31.8-35.4); Mean Corpuscular Hemoglobin 28.6 pg (27.0-31.2); Mean Corpuscular Volume 89.6 fl (81-99); Mean Platelet Volume 9.3 fl (7.4-10.4); Monocytes % 9.5 % (1.7-9.3); Neutrophils # 5.3 K/mm3 (1.8-7.8); Neutrophils % 48.9 % (37.0-80.0); Platelet Count 346 K/mm3 (142-424); Red Blood Count 3.71 M/mm3 (4.20-5.40); Red Cell Distribution Width 14.8 % (11.5-17.5); White Blood Count 10.8 K/mm3 (4.8-10.8)
[2022-10-22 06:33] LABS: Chloride 98 mmol/L (98-107); Sodium 134 mmol/L (136-145)
[2022-10-22 06:34] LABS: Potassium 4.2 mmoL/L (3.5-5.1)
[2022-10-22 06:36] LABS: Anion Gap 10.2 mEq/L (5-15); Blood Urea Nitrogen 36 mg/dl (7-17); Carbon Dioxide 30 mmol/L (22.0-30.0); Creatinine Clearance Estimated 51 mL/min (50-200); Estimated Glomerular Filt Rate 43 ml/min (>60); GFR (African American) 52 ML/MIN (>60)
[2022-10-22 06:37] LABS: Calcium 9.3 mg/dl (8.4-10.2); Glucose 88 mg/dl (74-100)
--- NOTE | 2022-10-22 08:23 | PC.NURSE ---
COURTESY TECH NOTE; ROUNDED ON PT 0735, PT DENIED NEED FOR DRINK, ASSISTANCE WITH RESTROOM, AND NEED TO REPOSITION IN BED. CALL LIGHT WITHIN REACH, NO FURTHER REQUESTS AT THIS TIME JERMEY KELLY
--- NOTE | 2022-10-22 09:20 | HMH.OTEV ---
OT Inpatient Evaluation Rehab OT IP Evaluation Start: 10/19/22 14:41 Freq: ONCE Status: Active Protocol: Document 10/20/22 09:56 ELIAS (Rec: 10/20/22 10:09 ELIAS [id number]) Rehab OT IP Assessment Subjective History Patient admitted to hospital complaining of shortness of breath for several weeks. Patient visited primary care physician October 04, and diagnosed with pneumonia via chest x-ray. Patient placed on azithromycin. Patient revisited PCP today for follow -up appointment with O2 saturation noted of 85% on room air. Patient also dyspneic, with fatigability with minimal exertion. Sleeps on 1 pillow, denies orthopnea , PND. Admits to chronic swelling and right lower extremity only. States her facilities maintenance assistant is Dr. Garcia, with last appointment few weeks ago. Sees facilities maintenance assistant due to myocardial infarction with stent placed 1998. Also admits to asthma, but denies any recent exacerbation/ hospitalizations for asthma issues. Patient lives alone in 1 story home with no EJ. Patient completes all ADLs and fx'l mobility independently. Patient is currently driving. Completes all housekeeping tasks independently. Subjective I can get up. Analysis Patient's fx'l mobility of bed mobility, transfers, ADLs and IADLs independently. Patient continues to drive. Objective Patient Orientation Person,Place,Name,Year Upper Extremity Gross ROM WFL Bed Mobility bed mobility - supine/sit Assist Level Independent Transfer Training Sit/Stand Transfer,Sit/Stand/ Step Transfer Assist Level Independent C
--- NOTE | 2022-10-22 10:36 | EXP.PULM.PN ---
Subjective *Date: 10/22/22 *Time: 10:36 Interval history: No acute respiratory events overnight. Patient denies any new respiratory complaints. Pulmonology Exam Inpatient Vital signs and Labs for Last 24 Hours: Temp Pulse Resp BP Pulse Ox 99.2 F 60 17 160/76 H 95 10/22/22 07:39 10/22/22 08:00 10/22/22 07:39 10/22/22 07:39 10/22/22 07:39 Laboratory Results - last 24 hr 10/22/22 06:01: WBC 10.8, RBC 3.71 L, Hgb 10.6 L, Hct 33.2 L, MCV 89.6, MCH 28.6, MCHC 31.9, RDW 14.8, Plt Count 346, MPV 9.3, Neut % (Auto) 48.9, Lymph % (Auto) 40.2, [place] % (Auto) 9.5 H, Eos % (Auto) 1.0, Baso % (Auto) 0.3, Neut # (Auto) 5.3, Lymph # (Auto) 4.4, [place] # (Auto) 1.0, Eos # (Auto) 0.1, Baso # (Auto) 0.0 10/22/22 06:01: Sodium 134 L, Potassium 4.2, Chloride 98, Carbon Dioxide 30, Anion Gap 10.2, BUN 36 H, Creatinine 1.20 H, Estimated Creat Clear 51, Estimated GFR 43 L, Est GFR ( Amer) 52 L, Glucose 88, Calcium 9.3, Magnesium 2.0 I & O for Labs for Last 24 Hours: Intake & Output 10/19/22 10/20/22 10/21/22 10/22/22 23:59 23:59 23:59 23:59 Intake Total 960 / 960 530 / 530 1200 / 1200 240 / 240 Output Total 0 / 0 1100 / 1100 1300 / 1300 500 / 500 Balance 960 / 960 -570 / -570 -100 / -100 -260 / -260 Weight 180 lb 8 oz 195 lb 3.2 oz 191 lb 12.835 oz 196 lb 4 oz Microbiology Reports for the Last 24 Hours: Microbiology 10/21/22 03:44 Sputum - Expectorated Sputum Gram Stain - Final 10/18/22 14:32 Blood Blood Culture - Preliminary NO GROWTH AFTER 48 HOURS 10/18/22 11:56 Blood Blood Culture - Preliminary NO GROWTH AFTER 48 HOURS Constitutional: Present mild distress Head: Present normocephalic and atraumatic ENT: Present normal exam, normal oropharynx and mucous membranes moist Neck: Present normal inspection and full ROM Respiratory: Present respiratory distress, wheezes and able to speak in complete sentences; Absent prolonged expiratory phase or crackles Cardiac: Present S1/S2, Tachycardia and radial pulses present GI: Present soft and distention; Absent tenderness or guarding Rectal (female): Present deferred (female): Present deferred Skin: Present intact; Absent cyanosis or jaundice Neuro: Present alert, awake and oriented x 3 Extremities: Present normal inspection; Absent edema, clubbing or cyanosis Psychiatric: Present normal affect and cooperative Assessment and Plan *Assessment and plan (1) Acute respiratory failure with hypoxia: Status: Acute Category: Medical Code(s): J96.01 - Acute respiratory failure with hypoxia (2) Pneumonia: Status: Acute Category: Medical Code(s): J18.9 - Pneumonia, unspecified organism (3) Pleural effusion, bilateral: Status: Acute Category: Medical Code(s): J90 - Pleural effusion, not elsewhere classified (4) History of asthma: Status: Acute Category: Medical Code(s): Z87.09 - Personal history of other diseases of the respiratory system (5) History of sleep apnea: Status: Acute Category: Medical Code(s): Z86.69 - Personal history of other diseases of the nervous system and sense organs Plan Ms. Mcneal is a 82-year-old female greater than [id number] smoking the last smoked around 1989 David diagnosis of mild intermittent asthma, allergies, history of sleep apnea diagnosed 15 years ago not compliant with her CPAP, CKD III, CAD experiencing worsening respiratory distress for the last 4 weeks treated for community-acquired pneumonia as an outpatient basis with no significant improvement clinically presented to the hospital needing new oxygen requirements and pulmonary was called for further evaluation. #Bilateral pleural effusions: #Hypoxic respiratory failure: #Pulmonary hypertension: #Community-acquired pneumonia Greater than [id number] smoking history last smoked around 1989. Carries a prior diagnosis of asthma. De
--- NOTE | 2022-10-22 10:54 | EXP.CARD.PN ---
Subjective Subjective Date: 10/22/22 Time: 10:54 Principal diagnosis: palpitaitons, labile HTN, CAD Interval history: 82-year-old white female in bed in no acute distress. She is now off oxygen therapy and ambulating in the room without difficulty. She states her shortness of breath has improved. She still has occasional productive cough. Exam Data for Last 24 hours Vital signs and Labs for Last 24 Hours: Temp Pulse Resp BP Pulse Ox 99.2 F 60 17 160/76 H 95 10/22/22 07:39 10/22/22 08:00 10/22/22 07:39 10/22/22 07:39 10/22/22 07:39 Laboratory Results - last 24 hr 10/22/22 06:01: WBC 10.8, RBC 3.71 L, Hgb 10.6 L, Hct 33.2 L, MCV 89.6, MCH 28.6, MCHC 31.9, RDW 14.8, Plt Count 346, MPV 9.3, Neut % (Auto) 48.9, Lymph % (Auto) 40.2, [place] % (Auto) 9.5 H, Eos % (Auto) 1.0, Baso % (Auto) 0.3, Neut # (Auto) 5.3, Lymph # (Auto) 4.4, [place] # (Auto) 1.0, Eos # (Auto) 0.1, Baso # (Auto) 0.0 10/22/22 06:01: Sodium 134 L, Potassium 4.2, Chloride 98, Carbon Dioxide 30, Anion Gap 10.2, BUN 36 H, Creatinine 1.20 H, Estimated Creat Clear 51, Estimated GFR 43 L, Est GFR ( Amer) 52 L, Glucose 88, Calcium 9.3, Magnesium 2.0 I & O for Last 24 hours: Intake & Output 10/19/22 10/20/22 10/21/22 10/22/22 11:59 11:59 11:59 11:59 Intake Total 900 / 900 840 / 840 650 / 650 1080 / 1080 Output Total 0 / 0 0 / 0 1800 / 1800 1100 / 1100 Balance 900 / 900 840 / 840 -1150 / -1150 -20 / -20 Weight 180 lb 8 oz 195 lb 3.2 oz 191 lb 12.835 oz 196 lb 4 oz Constitutional Constitutional: no acute distress *Routine Respiratory Exam Respiratory: Present CTA bilaterally; Absent wheezes *Routine Cardiovascular Exam Cardiovascular: Present RRR *Routine Extremities Exam Extremities: Absent edema Progress Note: A&P Assessment and plan (1) Acute respiratory failure with hypoxia: Status: Acute (2) Pneumonia: Status: Acute (3) Pleural effusion, bilateral: Status: Acute (4) History of asthma: Status: Acute (5) History of sleep apnea: Status: Acute (6) Diastolic heart failure: Status: Acute (7) Right-sided congestive heart failure: Status: Acute (8) CKD (chronic kidney disease) stage 3, GFR 30-59 ml/min: Status: Acute (9) CAD (coronary artery disease): Status: Acute (10) Renal artery stenosis: Status: Acute (11) History of stent insertion of renal artery: Status: Acute Assessment and Plan Assessment and Plan for All Diagnoses:: 1.? Hypoxemia with shortness of breath secondary to combination of pneumonia, CAD and right heart failure/diastolic dysfunction Improving with antibiotics, diuretic therapy and coronary stenting this admission Appreciate pulmonary evaluation SOA improved with changing Brilinta to Plavix 2.? Hypertension/diastolic dysfunction ALEXIS with left renal stenting 10/20/2022 Continue carvedilol and losartan Will add amlodipine for additional blood pressure control 3.? History of CAD with prior MT and stenting in 1998 DEYA to RCA, 10/20/2022 DAPT with aspirin and Plavix 4.? CKD, stage III with chronic anemia Creatinine 1.2 with GFR 43 and hemoglobin of 10.6 5.? Remote tobacco use with elevated right ventricular systolic pressure/pulmonary hypertension/asthma Continue diuretic therapy Appreciate pulmonary evaluation 6.? Hypothyroidism On replacement TSH normal 7.? Hyperlipidemia On statin therapy along with fenofibrate LDL 52 Patient stable from a cardiac standpoint for discharge home. Follow-up in our office in 1 to 2 weeks. Home medication recommendations: Aspirin 81 mg daily Plavix 75 mg daily Carvedilol 25 mg twice daily Amlodipine 5 mg daily Atorvastatin 40 mg daily (stop Pravachol) Tricor 54 mg daily Losartan 50 mg twice daily Spironolactone 25 mg twice daily Lasix 20 mg daily BMP and BNP in 1 week
--- NOTE | 2022-10-22 15:32 | EXP.DC.SUM ---
General Admission date:: 10/18/22 Discharge date: 10/22/22 HPI HPI HPI: Patient admitted to hospital complaining of shortness of breath for several weeks. Patient visited primary care physician October 04, and diagnosed with pneumonia via chest x-ray. Patient placed on azithromycin. Patient revisited PCP today for follow-up appointment with O2 saturation noted of 85% on room air. Patient also dyspneic, with fatigability with minimal exertion. Sleeps on 1 pillow, denies orthopnea, PND. Admits to chronic swelling and right lower extremity only. States her cover assembler is Dr. Garcia, with last appointment few weeks ago. Sees cover assembler due to myocardial infarction with stent placed 1998. Also admits to asthma, but denies any recent exacerbation/hospitalizations for asthma issues. Hospital Course Hospital Course Hospital Course: Really nice patient presented with shortness of breath, and ultimately diagnosed with acute right-sided/diastolic heart failure. Patient received cardiac catheterization during hospitalization with RCA stent placed. Patient also received left renal stent placement during hospitalization. Patient maintained throughout hospitalization on IV Lasix, daily weights, strict I's and O's. Patient's breathing improved throughout hospitalization on Lasix diuresis in conjunction with cardiac catheterization procedure. Patient weak during sessions with physical therapy/Occupational Therapy during hospitalization, and ultimately discharged home with home health. Patient noted to have O2 saturation 87% on room air within 24 hours of hospital disposition, and patient discharged home on 2 L nasal cannula. Patient also received daily scheduled nebulization treatments during hospitalization. Patient also received glucocorticoid therapy as inpatient. Patient evaluated by pulmonary during hospitalization who agreed with beforementioned management of patient's dyspnea. Patient will be monitored by home health for oxygen/CHF management. Patient will also receive home physical therapy after hospital disposition. Patient will follow-up with primary care physician, pulmonary, and cardiology after hospital discharge. Patient also treated for pneumonia during hospital with the treatment modalities mentioned above, plus IV antibiotics. Patient's respiratory status steadily improved throughout hospitalization. Patient had completed entire antibiotic treatment course during hospitalization, so was not discharged on any antibiotic therapy. As mentioned above, patient will follow-up with both PCP and pulmonary for continued respiratory concerns. Exam Data for Last 24 hours Vital signs and Labs for Last 24 Hours: Temp Pulse Resp BP Pulse Ox 98.7 F 70 17 155/88 H 94 L 10/22/22 11:24 10/22/22 12:00 10/22/22 11:24 10/22/22 11:24 10/22/22 11:24 Laboratory Results - last 24 hr 10/22/22 06:01: WBC 10.8, RBC 3.71 L, Hgb 10.6 L, Hct 33.2 L, MCV 89.6, MCH 28.6, MCHC 31.9, RDW 14.8, Plt Count 346, MPV 9.3, Neut % (Auto) 48.9, Lymph % (Auto) 40.2, [place] % (Auto) 9.5 H, Eos % (Auto) 1.0, Baso % (Auto) 0.3, Neut # (Auto) 5.3, Lymph # (Auto) 4.4, [place] # (Auto) 1.0, Eos # (Auto) 0.1, Baso # (Auto) 0.0 10/22/22 06:01: Sodium 134 L, Potassium 4.2, Chloride 98, Carbon Dioxide 30, Anion Gap 10.2, BUN 36 H, Creatinine 1.20 H, Estimated Creat Clear 51, Estimated GFR 43 L, Est GFR ( Amer) 52 L, Glucose 88, Calcium 9.3, Magnesium 2.0 I & O for Last 24 hours: Intake & Output 10/19/22 10/20/22 10/21/22 10/22/22 23:59 23:59 23:59 23:59 Intake Total 960 / 960 530 / 530 1200 / 1200 480 / 480 Output Total 0 / 0 1100 / 1100 1300 / 1300 900 / 900 Balance 960 / 960 -570 / -570 -100 / -100 -420 / -420 Weight 81.873 kg 88.541 kg 87 kg 89.018 kg *Routine HEENT Exam Head: Present normocephalic Eye: Present EOMI and normal accommodation *Routine Neck Exam Neck: Present supple and full ROM *Routine Respiratory Exam Respiratory: Present
--- NOTE | 2022-10-22 16:02 | HMH.PHACL ---
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
--- NOTE | 2022-10-25 14:15 | CARE MANAGER ---
Called and spoke with patient to discuss recent discharge. Patient states that she is doing well and has started all new medication prescribed at discharge. She was aware of scheduled f/u appts.
== END 2022-10-22 16:05 | disposition home health service (06) | DRG 246 ==
PROVIDERS: Internal Medicine; Physician Assistant; Admitting Provider Internal Medicine; PCP Nurse Practitioner Family; Visit Provider Internal Medicine
PROC: 027035Z Dilation of Coronary Artery, One Artery with Two Drug-eluting Intraluminal Devices, Percutaneous Approach (ICD-10-PCS; principal; 2022-10-20 13:45)
DX: I13.0 Hypertensive heart and chronic kidney disease with heart failure and stage 1 through stage 4 chronic kidney disease, or unspecified chronic kidney disease (principal); I50.33 Acute on chronic diastolic (congestive) heart failure; J18.9 Pneumonia, unspecified organism; J96.01 Acute respiratory failure with hypoxia; E03.9 Hypothyroidism, unspecified; E78.5 Hyperlipidemia, unspecified; J45.909 Unspecified asthma, uncomplicated; I25.10 Atherosclerotic heart disease of native coronary artery without angina pectoris; N18.30 Chronic kidney disease, stage 3 unspecified; K21.9 Gastro-esophageal reflux disease without esophagitis; I50.810 Right heart failure, unspecified; I70.1 Atherosclerosis of renal artery; Z79.899 Other long term (current) drug therapy; I77.1 Stricture of artery; D63.1 Anemia in chronic kidney disease; Z95.5 Presence of coronary angioplasty implant and graft; Z87.891 Personal history of nicotine dependence; I27.20 Pulmonary hypertension, unspecified; R00.1 Bradycardia, unspecified; I25.2 Old myocardial infarction
CPT/HCPCS: 36251; 36415; 37236; 71275; 76770; 80048; 80053; 80061; 83605; 83735; 83880; 84145; 84436; 84443; 84479; 84484; 85025; 85347; 85610; 87040; 87070; 87205; 87636; 92928; 93005; 93306; 93454; 93971; 93976; 94640; 97163; 97164; 97165; 99152; 99153; C1725; C1769; C1874; C1876; C9600; C9803; J0456; J0696; J1644; J3475; Q9967; U0003; U0005

== ENCOUNTER → 2022-11-04 09:04 | Outpatient (POV) | payer MEDICARE, SELFPAY ==
--- NOTE | 2022-11-04 09:29 | EXP.PAIN.SOA ---
[facility] Pain Management SOAP Note Subjective:: Patient is a pleasant 82-year-old female who presents today for follow-up. We are currently treating the patient for degenerative disc disease of lumbar spine with lumbar radiculopathy symptoms, spinal stenosis. Today she rates her pain a 4 out of 10. Since our last visit she has had a lot going on. Patient did have a bout of pneumonia that she did have to see the traffic officer for and was admitted into the hospital. Patient later had to have a cardiac cath with 5 stents placed. Patient is also experiencing decreased kidney function. Patient states that she does have a follow-up visit scheduled for the traffic officer as well as neurology and cardiology coming up. She does state today that her pain is more in her neck along the left side all the way down to her left barrera. She denies any falls or new injuries. Patient has previously had injective therapy however had a severe itching reaction to the steroid medication patient was prescribed tramadol 50 mg twice daily. Patient does state that she only takes these 1 to 2 tablets at night. At our last visit she was prescribed compounding cream that she states does provide additional relief. Her Doni is [id number]. Its been reviewed and appropriate. Review of Systems: General: No recent weight changes, no fever, no sleep disturbances Respiratory: No cough, no shortness of air, no recurring pulmonary infections Cardiovascular/peripheral vascular: No chest pain, no palpitations, no edema, no shortness of breath Gastrointestinal: No new onset incontinence, normal bowel movements reported Genitourinary: No new onset incontinence Musculoskeletal: Neck pain, low back pain, left leg pain Psychiatric: [Normal mood/affect] Neurological: [Denies weakness in extremities], [denies balance issues] Objective:: Physical Exam: General: Alert and oriented x3, no acute distress, pleasant and cooperative Lungs: Respirations even and unlabored, symmetrical chest expansion Eyes: PERRL Musculoskeletal: Flexion and extension of lumbar [spine] somewhat guarded secondary to pain, [antalgic gait noted] Neurological: Speech clear, no gross sensory deficit Assessment:: Degenerative disc disease of lumbar spine with lumbar radiculopathy symptoms, spinal stenosis, neck pain Plan:: I have counseled the patient that due to her lower kidney function we cannot prescribe the tramadol. I will send in a new prescription of methocarbamol 500 mg at bedtime and provide a 2-week supply of this medication. Patient will contact our office if she would like additional refills. Patient will return to clinic in 1 month for reevaluation of symptoms and plan of care. Patient has been instructed to contact the clinic with any concerns before the next appointment. Dr. Helms has reviewed this note and agrees with this plan of care. This note was dictated using voice recognition software and make contain errors or omissions. Addendum: Patient did contact our office and states that she did try the methocarbamol and felt like she had more coughing and additional side effects during the night and has discontinued use. [facility] Disclaimer: The information contained in this section may have been updated after the patient was seen, as this information can be updated by other users. Medical History Acute respiratory failure with hypoxia Back pain Cough DDD (degenerative disc disease) Dilatation of bladder Diverticulosis Excessive cerumen in both ear canals Gallstones GERD (gastroesophageal reflux disease) Heart disease History of asthma History of asthma History of sleep apnea Hypertensive urgency Interstitial cystitis Left lower lobe pneumonia Osteoporosis right FA Overactive bladder Persistent dry cough Pleural effusion, bilateral Pneumonia Renal failure stage 3 UTI (urinary tract infection) UTI (urinary tract infection) Vaginal yeast infec
[2022-11-04 09:42] VITALS: BP 126/55; PULSE 83; RESP 18; O2SAT 98; BMI 33.8
== END | disposition home or self-care (01) ==
PROVIDERS: PCP Nurse Practitioner Family; Visit Provider Nurse Practitioner Family
DX: M51.16 Intervertebral disc disorders with radiculopathy, lumbar region (principal); M48.061 Spinal stenosis, lumbar region without neurogenic claudication; M54.2 Cervicalgia
CPT/HCPCS: 99212; G0463

== ENCOUNTER 2022-11-23 12:38 | Outpatient (RCR) | payer MEDICARE, SELFPAY | END 2023-01-27 15:00 | disposition home or self-care (01) | LOC: PT 12:38 | PROVIDERS: Visit Provider Internal Medicine | DX: I25.10 Atherosclerotic heart disease of native coronary artery without angina pectoris (principal); Z95.5 Presence of coronary angioplasty implant and graft | CPT/HCPCS: 93798 ==

== ENCOUNTER → 2022-11-23 13:44 | Outpatient (CLI) | payer MEDICARE, SELFPAY | PROVIDERS: PCP Nurse Practitioner Family; Visit Provider Internal Medicine Pulmonary Disease | DX: R06.02 Shortness of breath (principal) | CPT/HCPCS: 94762 ==

== ENCOUNTER → 2022-11-25 10:48 | Outpatient (CLI) | payer MEDICARE, SELFPAY ==
--- NOTE | 2022-11-25 10:56 | XR_ITS ---
FINAL REPORT CLINICAL HISTORY: dyspnea, dizziness COMPARISON: 10/04/2022 FINDINGS: There is no evidence of effusion or other pleural disease. The mediastinum has a normal appearance. The cardiac silhouette is unremarkable. IMPRESSION: Unremarkable chest exam. Reviewed, Interpreted and Dictated by Greg Servin MD Transcribed by Daisy Egan Authenticated and [facility]
== END ==
PROVIDERS: PCP Nurse Practitioner Family; Visit Provider Nurse Practitioner Family
DX: R06.00 Dyspnea, unspecified (principal); R42 Dizziness and giddiness
CPT/HCPCS: 71046

== ENCOUNTER → 2022-12-06 09:40 | Outpatient (POV) | payer MEDICARE, SELFPAY ==
[2022-12-06 10:11] VITALS: BP 157/70; PULSE 99; RESP 20; O2SAT 96; BMI 28.1
--- NOTE | 2022-12-06 10:12 | EXP.PAIN.SOA ---
[facility] Pain Management SOAP Note Subjective:: Patient is a pleasant 82-year-old female who presents today for 1 month follow-up. We are currently treating the patient for degenerative disc disease of lumbar spine with lumbar radiculopathy symptoms, spinal stenosis. Today she rates her pain a 5 out of 10. She does state that she is having more pain in and around her neck at the left side with some muscle spasms on occasion. Patient denies any new trauma or injury. Since our last visit she was given a prescription of methocarbamol 500 mg at bedtime with a 2-week supply. Patient states that she did take this medication and that the first dose caused her significant itching and coughing. Patient states that she discontinued use following this. Patient did recently have 5 cardiac stents placed at the end of September and states that she is doing well from this. Patient did state that 1 of her doctors did mention that some of her symptoms may be consistent with possible pin strokes. She states that she is scheduled to see neurology here at [facility] coming . Patient is also scheduled for a construction equipment technician appointment at with Dr. Hylton around the or of this month however she states that she is undecided if she will be going to this appointment. Patient states in the past her last visit they only wanted to talk to her about a medication to start for her bones called See. Patient states at that time she did have a significant UTI however it was not addressed and later turned into sepsis. Patient does have a history of decreased kidney function and states from our last visit that she has discontinued her Lasix and is doing well with this with no additional increased swelling. Patient does state that she is still on spironolactone and this works well for her. Patient was previously on tramadol however we discontinued this due to the her lowered kidney function. Patient does also have a history of reaction to steroids causing severe itching. Patient is currently managed with compounding cream that she states helps well. Her Doni is [id number]. Its been reviewed and appropriate. Review of Systems: General: No recent weight changes, no fever, no sleep disturbances Respiratory: No cough, no shortness of air, no recurring pulmonary infections Cardiovascular/peripheral vascular: No chest pain, no palpitations, no edema, no shortness of breath Gastrointestinal: No new onset incontinence, normal bowel movements reported Genitourinary: No new onset incontinence Musculoskeletal: Neck pain Psychiatric: [Normal mood/affect] Neurological: [Denies weakness in extremities], [denies balance issues] Objective:: Physical Exam: General: Alert and oriented x3, no acute distress, pleasant and cooperative Lungs: Respirations even and unlabored, symmetrical chest expansion Eyes: PERRL Musculoskeletal: Flexion and extension of cervical [spine] somewhat guarded secondary to pain, [antalgic gait noted] point tenderness left cervical paraspinous Neurological: Speech clear, no gross sensory deficit Assessment:: Degenerative disc disease of lumbar spine with lumbar radiculopathy symptoms, spinal stenosis, neck pain, myofascial pain cervical paraspinous left-sided Plan:: Patient is experiencing more pain in and around the left side of her neck with point tenderness noted at her left cervical paraspinous. I have discussed with the patient that she may benefit from trigger point injections at this location however due to her previous history of reaction to steroids that we could just use numbing medication. I have counseled her that this may only last 3 to 4 hours. At this time the patient would like to wait and talk to Dr. Pedroza's office. I have also discussed with the patient to contact our office with any updates from neurology and that we can try a different muscle relaxer if needed. I have also discussed with the patient if she needs additional referrals for nephrology to [facility]
== END ==
PROVIDERS: PCP Nurse Practitioner Family; Visit Provider Nurse Practitioner Family
DX: M51.16 Intervertebral disc disorders with radiculopathy, lumbar region (principal); M48.061 Spinal stenosis, lumbar region without neurogenic claudication; M54.2 Cervicalgia; M79.12 Myalgia of auxiliary muscles, head and neck
CPT/HCPCS: 99212; G0463

== ENCOUNTER → 2022-12-17 09:29 | Outpatient (CLI) | payer MEDICARE, SELFPAY ==
--- NOTE | 2022-12-17 09:30 | MR_ITS ---
FINAL REPORT CLINICAL HISTORY: Dizziness, weakness, differential includes CVA COMPARISON: Prior head CT of 07/01/2018 FINDINGS: Multiple projection images of the brain arterial vasculature were obtained without contrast. The raw data images were also reviewed. There is moderate stenosis of the distal portions of the right internal carotid artery of about 50%, and the distal left internal carotid artery of about 60%. When compared to a prior CT of 2019 there is dense calcification in the distal cervical, petrous, and cavernous portions of the internal carotid arteries that likely is the etiology for the areas of stenosis. The distal vertebral and basilar arteries have an unremarkable appearance without evidence of significant stenosis or occlusion. The proximal anterior, middle and posterior cerebral arteries have an unremarkable appearance. There is no evidence of major branch occlusion. No aneurysm or vascular malformation is identified. IMPRESSION: There is moderate stenosis of the distal internal carotid arteries involving the distal cervical, petrous, and cavernous segments, approximately 50% narrowing on the right, and 60% narrowing on the left. Review of CT from 2019 reveals that there is bilateral prominent calcification of the carotid arteries through this area, suggesting that calcified plaque is responsible for the stenosis. Reviewed, Interpreted and Dictated by Saroj Valdes III, MD Transcribed by Daisy Egan Authenticated and [facility]
--- NOTE | 2022-12-17 09:30 | MR_ITS ---
FINAL REPORT CLINICAL HISTORY: left sided weakness, dizziness COMPARISON: None FINDINGS: Multiplanar MR imaging of the brain was performed without contrast. There is mild age-appropriate atrophy. There are scattered foci of increased T2 signal in the cerebral white matter that have a nonspecific appearance but likely represent moderate chronic ischemic/gliotic changes. There is no evidence of intracranial hemorrhage or mass. No abnormal ventricular dilatation is identified. No abnormal extra-axial fluid collection is seen. No abnormality is seen on the diffusion weighted images. The posterior fossa and brainstem are unremarkable. Normal major vessel vascular flow voids are seen. IMPRESSION: Age-appropriate atrophy and moderate chronic ischemic/gliotic changes. No acute intracranial abnormality. Reviewed, Interpreted and Dictated by Saroj Valdes III, MD Transcribed by Daisy Egan Authenticated and [facility]
== END ==
PROVIDERS: PCP Nurse Practitioner Family; Visit Provider Nurse Practitioner Family
DX: R42 Dizziness and giddiness (principal); R53.1 Weakness
CPT/HCPCS: 70544; 70551

== ENCOUNTER → 2022-12-20 13:05 | Outpatient (CLI) | payer MEDICARE, SELFPAY ==
--- NOTE | 2022-12-20 13:38 | MR_ITS ---
FINAL REPORT CLINICAL HISTORY: Neck pain, weakness, paresthesias. LEFT SIDED NECK AND ARM PAIN. COMPARISON: None FINDINGS: Multi planar MR imaging was obtained of the cervical spine. There is abnormal decreased signal throughout the cervical discs. The vertebrae are of normal height. There is no malalignment. The cervical cord demonstrates normal signal and configuration. C2-C3: There is no evidence of significant disc bulge or protrusion. There is no significant facet hypertrophy. C3-C4: A mild annular bulge is present. There is mild bilateral neural foraminal narrowing. C4-C5: A mild annular bulge is present. There is mild bilateral neural foraminal narrowing. C5-C6: A mild annular bulge is present. There is mild bilateral neural foraminal narrowing. C6-C7: A mild annular bulge is present. There is mild bilateral neural foraminal narrowing. C7-T1: There is no evidence of significant disc bulge or protrusion. There is no significant facet hypertrophy. IMPRESSION: Mild annular bulges at multiple levels, with mild bilateral neural foraminal narrowing. Reviewed, Interpreted and Dictated by Keron Velasquez MD Transcribed by Daisy Egan Authenticated and [facility]
--- NOTE | 2022-12-20 13:38 | MR_ITS ---
FINAL REPORT CLINICAL HISTORY: left sided weakness, dizziness.LEFT SIDED NECK AND ARM PAIN. COMPARISON: None FINDINGS: Multiple projection images of the neck arterial vasculature were obtained without contrast. The raw data images were also reviewed. The right common carotid artery has an unremarkable appearance without evidence of stenosis or occlusion. The right internal carotid artery has an unremarkable appearance without evidence of stenosis or occlusion. The right external carotid artery is patent. The right vertebral artery is patent without evidence of stenosis. The left common carotid artery has an unremarkable appearance without evidence of stenosis or occlusion. The left internal carotid artery is patent without evidence of stenosis or occlusion. The left external carotid artery is patent. The left vertebral artery is dominant, and patent without evidence of stenosis. IMPRESSION: Unremarkable MR angiogram of the neck without evidence of stenosis or occlusion. Reviewed, Interpreted and Dictated by Keron Velasquez MD Transcribed by Daisy Egan Authenticated and [facility]
[2022-12-20 13:42] LABS: Hematocrit 32.3 % (37.0-47.0); Hemoglobin 10.7 g/dL (12.2-16.2); Mean Corpuscular HGB Conc 33.3 g/dL (31.8-35.4); Mean Corpuscular Hemoglobin 30.1 pg (27.0-31.2); Mean Corpuscular Volume 90.5 fl (81-99); Platelet Count 315 K/mm3 (142-424); Red Blood Count 3.56 M/mm3 (4.20-5.40); Red Cell Distribution Width 14.6 % (11.5-17.5); White Blood Count 7.5 K/mm3 (4.8-10.8)
[2022-12-20 13:46] LABS: Creatinine,Urine Random 102 mg/dL (Not Estab.)
[2022-12-20 13:53] LABS: Chloride 103 mmol/L (98-107); Potassium 4.2 mmoL/L (3.5-5.1); Sodium 135 mmol/L (136-145)
[2022-12-20 13:54] LABS: Albumin Level 3.7 g/dl (3.5-5.0)
[2022-12-20 13:56] LABS: Anion Gap 15.2 mEq/L (5-15); Blood Urea Nitrogen 22 mg/dl (7-17); Carbon Dioxide 21 mmol/L (22.0-30.0); Estimated Glomerular Filt Rate 43 ml/min (>60); GFR (African American) 52 ML/MIN (>60)
[2022-12-20 13:57] LABS: Calcium 9.1 mg/dl (8.4-10.2); Glucose 106 mg/dl (74-100); Phosphorous 3.2 mg/dl (2.5-4.5)
[2022-12-20 14:33] LABS: 25-OH Vitamin D, Total 44.2 ng/mL (30-100)
[2022-12-26 16:53] LABS: C-Telopeptide Serum 343 pg/mL (.)
[2022-12-27 14:47] LABS: Tandem-R Ostase 8.8 ug/L (.)
== END ==
LOC: RAD 13:08
PROVIDERS: Physician Assistant Medical; PCP Nurse Practitioner Family; Visit Provider Nurse Practitioner Family
DX: R42 Dizziness and giddiness; R53.1 Weakness; M54.2 Cervicalgia; N18.32 Chronic kidney disease, stage 3b; M81.0 Age-related osteoporosis without current pathological fracture
CPT/HCPCS: 36415; 70547; 72141; 76376; 80069; 82043; 82306; 82523; 82570; 84080; 84155; 85014; 85018; 85048; 85049

== ENCOUNTER → 2023-01-10 09:37 | Outpatient (POV) | payer MEDICARE, SELFPAY ==
[2023-01-10 10:06] VITALS: BP 131/62; PULSE 69; RESP 18; O2SAT 96; BMI 28.0
--- NOTE | 2023-01-10 10:08 | EXP.PAIN.SOA ---
[facility] Pain Management SOAP Note Subjective:: Patient is a pleasant 82-year-old female who presents today for follow-up. We are currently treating the patient for degenerative disc disease of lumbar spine with lumbar radiculopathy symptoms, lumbar spinal stenosis. Today she rates her pain a 5 out of 10. Patient denies any new trauma or injury. She states that since our last visit she has had several follow-up appointments. She states that she did go to to see her patient support tech Dr. Hylton who did release her for 1 year. He stated that the stents were working well and that her kidney function was much better. Patient also states that she has seen her lumber tallier and that she is good for 3 months before her next follow-up. Patient also states that she has had a sleep study that she failed and is scheduled for a follow-up appointment where they are going to talk about possibly CPAP device. Patient also states that she does have a pulmonology appointment scheduled coming up soon for a study. Patient also states that she has a upcoming appointment with a clinical quality assurance associate due to some random abdominal pain she has been experiencing. Patient does state that they feel almost like a gallbladder attack however this was removed years ago however she does take a daily medication due to continued stone formation. Patient was previously prescribed tramadol twice daily from our office however due to her worsening kidney functions we had discontinued this medication. She does state that Dr. Butts's office did send in a prescription of this medication and it did really help she is requesting that we start back this. She states that she did talk to her patient support tech and he had no contraindications to prescribing this medication for her. Patient also has had recent updated imaging of her cervical spine done by Dr. Pedroza's office. Patient does have a history of reaction to steroids and cannot tolerate due to severe itching. Patient is prescribed compounding cream that she states continues to provide additional improvement. Her Doni is [id number]. Its been reviewed and appropriate. Review of Systems: General: No recent weight changes, no fever, no sleep disturbances Respiratory: No cough, no shortness of air, no recurring pulmonary infections Cardiovascular/peripheral vascular: No chest pain, no palpitations, no edema, no shortness of breath Gastrointestinal: No new onset incontinence, normal bowel movements reported Genitourinary: No new onset incontinence Musculoskeletal: Low back pain Psychiatric: [Normal mood/affect] Neurological: [Denies weakness in extremities], [denies balance issues] Objective:: Physical Exam: General: Alert and oriented x3, no acute distress, pleasant and cooperative Lungs: Respirations even and unlabored, symmetrical chest expansion Eyes: PERRL Musculoskeletal: Flexion and extension of lumbar [spine] somewhat guarded secondary to pain, [antalgic gait noted] Neurological: Speech clear, no gross sensory deficit Assessment:: Degenerative disc disease of cervical and lumbar spine with cervical and lumbar radiculopathy symptoms, lumbar spinal stenosis Plan:: Patient continues to have significant pain in her low back with limited range of motion. I will refer her to Dr. Barboza's office for evaluation and send all our imaging and testing reports to his office. I will send in a prescription of the tramadol 50 mg twice daily and provide a 1 month supply of this medication. I have counseled the patient that she will follow-up in 1 month and that if she is still doing well I will put in refills on this medication at her next visit. I have also counseled the patient if her kidney function becomes an issue down the road we will have to discontinue this medication. Patient will return to clinic in 1 month for reevaluation of symptoms, medication refill and follow-up. Patient has been instructed to contact the clinic with any concerns before the next appointme
== END | disposition home or self-care (01) ==
PROVIDERS: PCP Nurse Practitioner Family; Visit Provider Nurse Practitioner Family
DX: M50.10 Cervical disc disorder with radiculopathy, unspecified cervical region (principal); M51.16 Intervertebral disc disorders with radiculopathy, lumbar region; M48.061 Spinal stenosis, lumbar region without neurogenic claudication
CPT/HCPCS: 99212; G0463

== ENCOUNTER → 2023-01-18 10:52 | Outpatient (CLI) | payer MEDICARE, SELFPAY ==
--- NOTE | 2023-01-18 10:58 | XR_ITS ---
FINAL REPORT CLINICAL HISTORY: LOW BACK MONET FINDINGS: 5 views were obtained. There is no acute fracture. There is no malalignment. There is loss of lumbar lordosis. There are prominent anterior osteophytes at L2-L3 and L3-L4. The disc spaces are maintained. IMPRESSION: No acute process. Reviewed, Interpreted and Dictated by Keron Velasquez MD Transcribed by Greyson Mayes Authenticated and [facility]
== END ==
PROVIDERS: PCP Nurse Practitioner Family; Visit Provider Nurse Practitioner Family
DX: M54.50 Low back pain, unspecified (principal)
CPT/HCPCS: 72110

== ENCOUNTER → 2023-01-18 11:32 | Outpatient (CLI) | payer MEDICARE, SELFPAY | PROVIDERS: PCP Nurse Practitioner Family; Visit Provider Nurse Practitioner Family | DX: N39.0 Urinary tract infection, site not specified (principal); B96.1 Klebsiella pneumoniae [K. pneumoniae] as the cause of diseases classified elsewhere; M54.50 Low back pain, unspecified | CPT/HCPCS: 72110; 87086; 87088; 87186 ==

== ENCOUNTER → 2023-01-21 07:30 | Outpatient (CLI) | payer MEDICARE, SELFPAY ==
[2023-01-21 08:40] VITALS: PULSE 65; PULSE 69
[2023-01-21 11:45] LABS: Vitamin B12 279 pg/mL (239-931)
== END ==
PROVIDERS: PCP Nurse Practitioner Family; Visit Provider Internal Medicine Pulmonary Disease
DX: G47.34 Idiopathic sleep related nonobstructive alveolar hypoventilation (principal); R42 Dizziness and giddiness; R06.02 Shortness of breath; J45.30 Mild persistent asthma, uncomplicated
CPT/HCPCS: 36415; 82607; 82746; 94060; 94618; 94640; 94727; 94729

== ENCOUNTER → 2023-02-07 10:11 | Outpatient (POV) | payer MEDICARE, SELFPAY ==
--- OUTSIDE RECORDS SUMMARY | 2023-02-07 10:15 | XMS_ITS | Clinical Summary ---
Author Name Unknown Address [address] [place] [address] [place] [address] Phone Organization [facility] , [facility] Address [address] [place] [address] Phone Care Team Providers Care Cardiovascular Technologist Name Role Phone Campbell MAURO, Andrés Cabrera Unavailable [phone] BELLA MAURO, VINAY Fisher Unavailable [phone] Reason for Visit and Chief Complaint [facility] Problems Includes: Problems addressed during this encounter and other active Problems All Visits Onset Date Resolved Date Provider Condition S tatus Lower Back Pain 09/21/2021 Arthur Almanza ctive Plan of Treatment No Plan of Treatment Recorded Assessments Includes: Assessments from this encounter No Assessments Recorded Medical Equipment - Implanted Devices Includes: Current Devices No Medical Equipment Recorded Medications Includes: Medications discussed during this encounter and other current Medications Current Medications (continue as prescribed) Cephalexin 500 MG Oral Tablet 03/04/2022 Provider: Diagnosis: Meloxicam 15 MG Oral Tablet 09/16/2021 Provider: VINAY BLANCO MD Diagnosis: Pravastatin Sodium 40 MG Oral Tablet 09/06/2021 Prov ider: VINAY BLANCO MD Diagnosis:
--- OUTSIDE RECORDS SUMMARY | 2023-02-07 10:15 | XMS_ITS | Clinical Summary ---
Author Name Unknown Address [address] [place] [address] [place] [address] Phone Organization [facility] , [facility] Address [address] [place] [address] Phone Care Team Providers Care Pediatric Physiatrist Name Role Phone Campbell MAURO, Andrés Cabrera Unavailable [phone] VINAY BLANCO MD Unavailable [phone] Reason for Referral Date Encounter Description Provider Reason for Referral 02/18/22 Post Op Cem Amado MD Referral To Physician Reason for Visit and Chief Complaint The Chief Complaint is: low back pain Problems Includes: Problems addressed during this encounter and other active Problems Current Visit Onset Date Resolved Date Provider Watson guzman Status Lower Back Pain 09/21/2021 Arthur Ramos PA-C A ctive Plan of Treatment Patient was seen by myself Arthur Ramos PA-C. Patient will follow up 2 weeks recommend some ice for this on her back since she is having the swelling with the both lower extremities we will get a stat Doppler to rule out a DVT. We feel that she can go back on her HCTZ also Ultrasound was done today for both lower extremities due to her swelling it was negative for any DVT. Patient was called and told the results over the phone - Last Documented On 04/08/2022 6:50AM ; [facility] Fall Risk Assessment: This patient has been identified as a fall risk. Balance/gait along with postural blood pressure, vision and home fall hazards have been assessed. Medications have been reviewed, and recommendations made with regard to contributing factors for future falls. Plan of care: Consideration of vitamin D supplementation along with balance and strength training with consideration for formal physical therapy has been discussed with the patient. - Last Documented O
--- OUTSIDE RECORDS SUMMARY | 2023-02-07 10:15 | XMS_ITS | Clinical Summary ---
Author Name Unknown Address [address] [place] [address] [place] [address] Phone Organization [facility] , [facility] Address [address] [place] [address] Phone Care Team Providers Care Weapons System Instrument Mechanic Name Role Phone Campbell MAURO, Andrés Cabrera Unavailable [phone] VINAY BLANCO MD Unavailable [phone] Reason for Visit and Chief Complaint The Chief Complaint is: low back pain Problems Includes: Problems addressed during this encounter and other active Problems Current Visit Onset Date Resolved Date Provider Watson guzman Status Lower Back Pain 09/21/2021 Arthur Ramos PA-C A ctive Plan of Treatment Fall Risk Assessment: This patient has been [...] discussed with the patient. - Last Documented On 04/12/2022 10:36AM ; [facility], [facility] Instructions to patient Lose weight Last Documented On 2 12:54PM ; [facility], [facility] Assessments Includes: Assessments from this encounter No Assessments Recorded Instructions Includes: Instructions from this encounter Instructions to patient Lose weight Last Documented On
--- OUTSIDE RECORDS SUMMARY | 2023-02-07 10:15 | XMS_ITS ---
Care Plan - [facility] Created on: February 07, 2023 Elizabet Dianne : 1940 Sex: Female Author Name Unknown Address [address] [place] [address] [place] [address] Phone Organization [facility] Address [address] [place] [address] Phone Care Team Providers Care Science Center Display Builder Name Role Phone Campbell MAURO, Andrés Cabrera Unavailable [phone] VINAY BLANCO MD Unavailable [phone]
--- OUTSIDE RECORDS SUMMARY | 2023-02-07 10:15 | XMS_ITS | Clinical Summary ---
Author Name Unknown Address [address] [place] [address] [place] [address] Phone Organization [facility] , [facility] Address [address] [place] [address] Phone Care Team Providers Care Senior Net Software Developer Name Role Phone Campbell MAURO, Andrés Cabrera Unavailable [phone] VINAY BLANCO MD Unavailable [phone] Reason for Visit and Chief Complaint [...] with the patient. - Last Documented On 02/14/2022 10:30AM ; [facility], [facility] Instructions to patient No intervention and counseli ng on cessation of tobacco use Last Documented On 2 1:33PM ; [facility] Lose weight Last Documented On 2 1:33PM ; [facility], [facility] Assessments Includes: Assessments from this encounter No Assessments Recorded Instructions Includes: Instructions from this encounte
--- OUTSIDE RECORDS SUMMARY | 2023-02-07 10:15 | XMS_ITS ---
Author Name Unknown Address [address] [place] [address] [place] [address] Phone Organization [facility] Address [address] [place] [address] Phone Care Team Providers Care Inspector Tool Name Role Phone Campbell MAURO, Andrés Cabrera Unavailable [phone] VINAY BLANCO MD Unavailable [phone] Reason for Referral Date Encounter Description Provider Reason for Referral 03/04/22 Post Op Cem Amado MD Referral To Physician 02/18/22 Post Op Cem Amado MD Referral To Physician 12/10/21 Follow Up Cem Amado MD Referral To Physician 10/28/21 Follow Up Arthur Ramos PA-C Referral To Physician Problems Includes: Active, inactive, and resolved Problems All Visits Onset Date Resolved Date Provider Condition S tatus Lower Back Pain 09/21/2021 Arthur Ramos PA-C A ctive Plan of Treatment Pending Tests Order Diagnosis Results Due Ordering P lona Radiology - CT Scan Lumbar 10/05/21 Sergio Ramos PA-C Instructions to patient Lose weight Last Documented On 2 1:42PM ; [facility], [facility] Lose weight Last Documented On 2 11:05AM ; [facility], [facility] No intervention and counseli merritt on cessation of tobacco use
--- OUTSIDE RECORDS SUMMARY | 2023-02-07 10:15 | XMS_ITS | Clinical Summary ---
Author Name Unknown Address [address] [place] [address] [place] [address] Phone Organization [facility] , [facility] Address [address] [place] [address] Phone Care Team Providers Care Netsuite Developer Name Role Phone Campbell MAURO, Andrés Cabrera Unavailable [phone] VINAY BLANCO MD Unavailable [phone] Reason for Referral Date Encounter [...] Arthur Ramos PA-C. Patient will follow up as needed for now we will refer her to physical therapy if she plateaus and not happy with her progress she is to come back to see us. - Last Documented On 04/07/2022 7:43AM ; [facility] Fall Risk Assessment: This patient has been [...] with the patient. - Last Documented On 04/07/2022 7:43AM ; [facility] Pending Tests Order Diagnosis Results Due Ordering P rovider Therapy - Physical Therapy Lumbar
--- OUTSIDE RECORDS SUMMARY | 2023-02-07 10:16 | XMS_ITS | Continuity of Care Document ---
Author Name Unknown Address [address] [place], [place] [id number] Organization [facility] Phone Care Team Providers Care Shot Tube Machine Tender Name Role Phone SUNI JEAN Admitting SUNI JEAN Unavailable SUNI JEAN Primary Attending [phone] TREATMENT PLAN DISCHARGE MEDICATIONS Status RXNORM Medication Dose Route Frequency Dates Comments U pdated By Patient discharge medication information is not available. PATIENT OPEN ORDERS Code System Description Frequency Occurrences Priority Start Date Ordering Physician Updated By TAI Amaya)SLEEP STUDY ONE TIME 0 Routine December 26, 2022 3:04:00 AM [facility] MIRANDA CULP CERTIFICATION AND SELECTION SPECIALIST [id number] on December 26, 2022 3:04:00 AM [facility] SCHEDULED PROCEDURES Code System Description Status Scheduled Date Upd ated By Patient scheduled procedure information is not available. MEDICATIONS HOME MEDICATIONS Status RXNORM Medication Dose Route Frequency Dates Comments R eported By Updated By Drug Treatment Unknown DISCHARGE MEDICATIONS Status RXNORM Medication Dose Route Frequency Dates Comments Physic chayo Updated By No Discharge Medication Info rmation Available INPATIENT MEDICATIONS Status RXNORM Medication Dose Route Frequency Rate Quantity Dates Comments Physician Updated By No Inpatient Medication Info rmation Available SOCIAL HISTORY
--- OUTSIDE RECORDS SUMMARY | 2023-02-07 10:16 | XMS_ITS | Continuity of Care Document ---
Author Name Unknown Address [address], [place] [id number] Organization [facility] Phone Care Team Providers Care Washing Machine Mechanic Name Role Phone SUNI JEAN Admitting SUNI JEAN Unavailable SUNI JEAN Primary Attending TREATMENT PLAN DISCHARGE MEDICATIONS Status RXNORM Medication Dose Route Frequency Dates Comments U pdated By Patient discharge medication information is not available. PATIENT OPEN ORDERS Code System Description Frequency Occurrences Priority Start Date Ordering Physician Updated By TAI Amaya)SLEEP STUDY ONE TIME 0 Routine December 26, 2022 3:04:00 AM [facility] MIRANDA CULP DRYWALL WORKER [id number] on December 26, 2022 3:04:00 AM [facility] SCHEDULED PROCEDURES Code System Description Status Scheduled [...]
[2023-02-07 10:30] VITALS: BP 143/61; PULSE 90; RESP 20; BMI 33.8
--- NOTE | 2023-02-07 10:39 | EXP.PAIN.SOA ---
[facility] Pain Management SOAP Note Subjective:: This patient is a very pleasant 82-year-old female that comes our clinic today for follow-up visit regarding chronic low back pain she describes as constant, dull, aching. Also bilateral hip and leg radicular symptoms. Patient rates her pain today 7/10. Patient is status post lumbar discectomy laminectomy in 2019. She has had minimal relief from the previous surgery. Patient is allergic to steroids. We are unable to give her any type of interventional injection. We are currently prescribing tramadol 50 mg 1 p.o. twice daily. Patient states this does help decrease the pain to some degree. She does not report any side effects or complications when taking tramadol. Her Doni #[id number] has been reviewed and appropriate. Patient will have a surgery consultation with Dr. Martínez within the next couple of weeks. I mention to the patient that we had a couple of options for her regarding chronic pain relief if in fact no surgery is indicated by Dr. Martínez. Objective:: Patient is awake alert [place] x3. In no acute distress. Flexion-extension lumbar spine somewhat guarded secondary to pain. Deep tendon reflexes upper and lower extremities normal. Motor strength upper and lower extremities normal. There is no gross sensory deficit. Gait is normal. Assessment:: Degenerative disc lumbar spine multilevels. Lumbar radiculopathy. Lumbar postlaminectomy syndrome. Lumbar spondylosis Plan:: Patient will return to see us following Dr. Martínez consultation. She has a follow-up in 1 month for med refills. [facility] Disclaimer: The information contained in this section may have been updated after the patient was seen, as this information can be updated by other users. Medical History Acute respiratory failure with hypoxia Asthma Back pain CAD in [place] artery Coronary artery disease Cough DDD (degenerative disc disease) Dilatation of bladder Diverticulosis Dyspnea on exertion Excessive cerumen in both ear canals Gallstones GERD (gastroesophageal reflux disease) Heart disease History of asthma History of asthma History of sleep apnea History of sleep apnea History of smoking 30 or more pack years Hypertensive urgency Interstitial cystitis Left lower lobe pneumonia Nocturnal hypoxia In the setting of untreated severe ZACH. Osteoporosis right FA Overactive bladder Persistent dry cough Pleural effusion, bilateral Pneumonia Pulmonary hypertension Renal failure stage 3 UTI (urinary tract infection) UTI (urinary tract infection) Vaginal yeast infection Vitamin D deficiency Surgical History H/O breast biopsy H/O heart artery stent H/O: hysterectomy History of biopsy of bladder History of dilation and curettage Hx of cataract removal with insertion of prosthetic lens Hx of cholecystectomy Hx of colonoscopy 05/05/2021 Previous back surgery L4/5-decompression - 12/2021 Dr. Cem Amado at [facility] S/P cardiac catheterization 1999 Status post rotator cuff surgery right Family History Father Coronary artery disease Hyperlipidemia Hypertension Stroke Mother Coronary artery disease Heart attack Hyperlipidemia Hypertension Brother Cancer hepatic Coronary artery disease Diabetes Heart attack Hyperlipidemia Hypertension Stroke Sister Cancer ovarian Hyperlipidemia Hypertension Diabetes Son Coronary artery disease Heart attack Daughter Hyperlipidemia Hypertension Social History Smoking Status: Former smoker years smoked: 30 second hand exposure: No alcohol intake: never substance use type: denies use current occupational status: retired Travel in the last 8 weeks: None household members: none housing: house
== END | disposition home or self-care (01) ==
PROVIDERS: PCP Nurse Practitioner Family; Visit Provider Nurse Anesthetist, Certified Registered
DX: M51.16 Intervertebral disc disorders with radiculopathy, lumbar region (principal); M96.1 Postlaminectomy syndrome, not elsewhere classified; M47.26 Other spondylosis with radiculopathy, lumbar region
CPT/HCPCS: 99212; G0463

== ENCOUNTER → 2023-02-16 09:55 | Outpatient (CLI) | payer MEDICARE, SELFPAY ==
--- NOTE | 2023-02-16 09:59 | MR_ITS ---
FINAL REPORT CLINICAL HISTORY: .HX BACK SURGERY 1 YEAR AGO. LEFT LEG MONET, NUMBNESS AND TINGLING. COMPARISON: None FINDINGS: Multiplanar MR imaging of the lumbar spine was performed without and with contrast. On the sagittal T2-weighted images, disc degeneration is seen throughout. There is mild leftward curvature of the thoracolumbar spine. There is no evidence of fracture. The conus is seen at approximately the L1 level and has an unremarkable appearance. T11-12: An annular bulge is present with a left foraminal disc protrusion and moderate left neural foraminal narrowing. T12-L1: An annular bulge is present with osteophytes and mild left neural foraminal narrowing. L1-2: An annular bulge is present with osteophytes. There is a left posterolateral disc protrusion with mild left neural foraminal narrowing. L2-3: An annular bulge is present with osteophytes and facet osteoarthropathy. There is moderate right and mild left neural foraminal narrowing. L3-4: An annular bulge is present with osteophytes and facet osteoarthropathy. There is mild bilateral neural foraminal narrowing. L4-5: There is postoperative change in the left side with soft tissue surrounding the left side of the thecal sac, which enhances, consistent with postoperative fibrosis. There is moderate right and severe left neural foraminal narrowing. L5-S1: An annular bulge is present with osteophytes. There is moderate bilateral neural foraminal narrowing. IMPRESSION: Multilevel degenerative change in the lumbar spine, most severe at the L4-5 level with postoperative enhancement surrounding the left side of the thecal sac consistent with postoperative fibrosis Reviewed, Interpreted and Dictated by Saroj Valdes III, MD Transcribed by Daisy Egan Authenticated and [facility]
[2023-02-16 10:25] LABS: Blood Urea Nitrogen 28 mg/dl (7-17); Estimated Glomerular Filt Rate 33 ml/min (>60); GFR (African American) 40 ML/MIN (>60)
== END ==
LOC: RAD 09:56
PROVIDERS: PCP Nurse Practitioner Family; Visit Provider Nurse Practitioner Family
DX: M54.50 Low back pain, unspecified (principal); M51.36 Other intervertebral disc degeneration, lumbar region
CPT/HCPCS: 36415; 72158; 76376; 82565; 84520; A9576

== ENCOUNTER → 2023-03-09 23:22 | Outpatient (CLI) | payer MEDICARE, SELFPAY | PROVIDERS: PCP Nurse Practitioner Family; Visit Provider Nurse Practitioner Family | DX: N39.0 Urinary tract infection, site not specified (principal); B96.1 Klebsiella pneumoniae [K. pneumoniae] as the cause of diseases classified elsewhere | CPT/HCPCS: 87086 ==

== ENCOUNTER → 2023-03-17 09:19 | Outpatient (POV) | payer MEDICARE, SELFPAY ==
[2023-03-17 09:40] VITALS: BP 167/63; PULSE 75; RESP 18; O2SAT 96; BMI 33.8
--- NOTE | 2023-03-17 12:15 | EXP.PAIN.SOA ---
[facility] Pain Management SOAP Note Subjective:: Patient is a pleasant 82-year-old female who presents today for medication refill. We are currently treating the patient for degenerative disc disease of lumbar spine with lumbar radiculopathy symptoms, lumbar postlaminectomy syndrome, lumbar spondylosis, chronic pain syndrome. Today she rates her pain a 5 out of 10. Patient denies any new trauma or injury. She states she continues to have constant pain in her low back and legs. She does describe this as an aching, throbbing sensation that is worse with increased ambulation or activity. She does state the pain interferes with her ability perform activities of daily living such as cooking and cleaning. Patient is currently managed with tramadol 50 mg twice a day. Patient denies any side effects from this medication. She states that when she does take this medication it can make her a little drowsy and so she does not drive during that time. Patient does use Tylenol arthritis 2 tablets once a day to help additionally. Patient was previously sent for referral to Dr. Barboza's office however she had not had any updates regarding this. Patient does also state that she is currently experiencing a UTI and on antibiotics. Patient's Doni has been reviewed and is appropriate. Review of Systems: General: No recent weight changes, no fever, no sleep disturbances Respiratory: No cough, no shortness of air, no recurring pulmonary infections Cardiovascular/peripheral vascular: No chest pain, no palpitations, no edema, no shortness of breath Gastrointestinal: No new onset incontinence, normal bowel movements reported Genitourinary: No new onset incontinence Musculoskeletal: Low back pain, leg pain, hip pain Psychiatric: [Normal mood/affect] Neurological: [Denies weakness in extremities], [denies balance issues] Objective:: Physical Exam: General: Alert and oriented x3, no acute distress, pleasant and cooperative Lungs: Respirations even and unlabored, symmetrical chest expansion Eyes: PERRL Musculoskeletal: Flexion and extension of lumbar [spine] somewhat guarded secondary to pain, [antalgic gait noted] Neurological: Speech clear, no gross sensory deficit Assessment:: Degenerative disc disease of lumbar spine with lumbar radiculopathy symptoms, lumbar postlaminectomy syndrome, lumbar spondylosis, chronic pain syndrome Plan:: Patient continues to experience significant pain in her low back and legs as well as her hips with limited range of motion of her lumbar spine. I have discussed with patient that due to her chronic pain that she may be a beneficial candidate of a spinal cord stimulator trial in the future. Risk and benefits and educational handouts were given at today's visit. We will follow-up with her at her next visit regarding any questions on the device or if she would like to proceed forward. I will refill the patient's tramadol 50 mg twice a day and provide a 1 month medication. I have discussed with the patient that we will continue to monitor her kidney function as needed due to having a history of lower GFR in the past. If her GFR becomes lowered/impaired we will discontinue the tramadol as needed. Patient will return to clinic in 1 month for reevaluation of symptoms and plan of care. Patient has been advised of risks of oversedation with the prescribed medication. Narcan has been offered to the patient in the event of oversedation. Patient has been advised that a family member should also be educated regarding administration of Narcan. Patient has been instructed to contact the clinic with any concerns before the next appointment. Dr. Helms has reviewed this note and agrees with this plan of care. This note was dictated using voice recognition software and make contain errors or omissions. [facility] Disclaimer: The information contained in this section may have been updated after the patient was seen, as this information can be updated by other
== END | disposition home or self-care (01) ==
PROVIDERS: PCP Nurse Practitioner Family; Visit Provider Nurse Practitioner Family
DX: M51.16 Intervertebral disc disorders with radiculopathy, lumbar region (principal); M96.1 Postlaminectomy syndrome, not elsewhere classified; M47.26 Other spondylosis with radiculopathy, lumbar region; G89.4 Chronic pain syndrome
CPT/HCPCS: 99212; G0463

== ENCOUNTER → 2023-03-17 11:08 | Outpatient (CLI) | payer MEDICARE, SELFPAY ==
--- NOTE | 2023-03-17 11:13 | XR_ITS ---
FINAL REPORT TECHNIQUE: Chest PA & Lateral CLINICAL HISTORY: cough, dyspnea broken rib x 1 month ago wheezing and coughing x 1 week asthma COMPARISON: 11/25/2022 FINDINGS: 2 views of the chest were performed. The heart size is normal. The mediastinum is within normal limits. There is no acute cardiopulmonary process. There are no pleural effusions. There is no pneumothorax. There are chronic appearing changes in the lung bases, stable. There are small anchors in the right proximal humerus consistent with prior shoulder repair. IMPRESSION: No acute cardiopulmonary process. Reviewed, Interpreted and Dictated by Keron Velasquez MD Transcribed by Daisy Egan Authenticated and . [facility]
== END ==
LOC: RAD 11:09
PROVIDERS: PCP Nurse Practitioner Family; Visit Provider Nurse Practitioner Family
DX: R06.09 Other forms of dyspnea; R05.9 Cough, unspecified; R06.2 Wheezing; M51.16 Intervertebral disc disorders with radiculopathy, lumbar region; M96.1 Postlaminectomy syndrome, not elsewhere classified; M47.26 Other spondylosis with radiculopathy, lumbar region; G89.4 Chronic pain syndrome
CPT/HCPCS: 71046; 99212; G0463

== ENCOUNTER → 2023-03-28 11:38 | Outpatient (CLI) | payer MEDICARE, SELFPAY ==
--- NOTE | 2023-03-28 12:01 | XR_ITS ---
FINAL REPORT CLINICAL HISTORY: fall, left hip pain COMPARISON: None FINDINGS: LEFT HIP: Two views of the left hip demonstrate no acute fracture or dislocation. Mild degenerative change is present. There is also mild degenerative change of the sacroiliac joints and the pubic symphysis. The visualized bony structures are well aligned. No soft tissue abnormality is seen. IMPRESSION: Degenerative change as described. Reviewed, Interpreted and Dictated by Greg Servin MD Transcribed by Daisy Egan Authenticated and [facility]
== END ==
PROVIDERS: PCP Nurse Practitioner Family; Visit Provider Nurse Practitioner Family
DX: M54.9 Dorsalgia, unspecified (principal); R35.0 Frequency of micturition; M25.552 Pain in left hip; N39.0 Urinary tract infection, site not specified; S79.912A Unspecified injury of left hip, initial encounter; W19.XXXA Unspecified fall, initial encounter; B96.1 Klebsiella pneumoniae [K. pneumoniae] as the cause of diseases classified elsewhere
CPT/HCPCS: 73502; 87086

== ENCOUNTER → 2023-04-11 23:44 | Outpatient (CLI) | payer MEDICARE, SELFPAY | PROVIDERS: PCP Urology; Visit Provider Urology | DX: N39.0 Urinary tract infection, site not specified (principal) ==

== ENCOUNTER → 2023-04-14 08:39 | Outpatient (POV) | payer MEDICARE, SELFPAY ==
--- NOTE | 2023-04-14 08:49 | EXP.PAIN.SOA ---
[facility] Pain Management SOAP Note Subjective:: Patient is a pleasant 82-year-old female who presents today for 1 month follow-up and medication refill. We are currently treating the patient for degenerative disc disease of lumbar spine with lumbar radiculopathy symptoms, lumbar postlaminectomy, lumbar spondylosis, chronic pain syndrome. Today she rates her pain a 5 out of 10. Patient denies any new trauma or injury. She states she continues to have pain on a daily basis and that it is all over and not 1 specific spot. Patient is currently managed with tramadol 50 mg twice a day. She denies any side effects from this medication. She does also use Tylenol arthritis in combination. Patient states she still is experiencing UTI issues. She states that she did go to a specialist and that he is stating that she needs surgery. She states she is still on antibiotics and that this is going to be scheduled in May. Patient states she is still very interested in the spinal cord stimulator trial or pain pump trial however she does want to get over her current issues before proceeding forward. Her Doni has been reviewed and is appropriate. Review of Systems: General: No recent weight changes, no fever, no sleep disturbances Respiratory: No cough, no shortness of air, no recurring pulmonary infections Cardiovascular/peripheral vascular: No chest pain, no palpitations, no edema, no shortness of breath Gastrointestinal: No new onset incontinence, normal bowel movements reported Genitourinary: No new onset incontinence Musculoskeletal: Low back pain Psychiatric: [Normal mood/affect] Neurological: [Denies weakness in extremities], [denies balance issues] Objective:: Physical Exam: General: Alert and oriented x3, no acute distress, pleasant and cooperative Lungs: Respirations even and unlabored, symmetrical chest expansion Eyes: PERRL Musculoskeletal: Flexion and extension of lumbar [spine] somewhat guarded secondary to pain, [antalgic gait noted] Neurological: Speech clear, no gross sensory deficit Assessment:: Degenerative disc disease of lumbar spine with lumbar radiculopathy symptoms, lumbar postlaminectomy, lumbar spondylosis, chronic pain syndrome Plan:: I will refill the patient's tramadol twice a day and provide a 2 month supply of this medication. I have reviewed over with the patient the risk and benefits of the spinal cord stimulator and pain pump trial. I have counseled the patient that there is no petersen and that we will proceed forward once she is over her urinary tract issues. Patient will return to clinic in 2 month for reevaluation of symptoms and plan of care. Patient has been instructed to contact the clinic with any concerns before the next appointment. Dr. Helms has reviewed this note and agrees with this plan of care. This note was dictated using voice recognition software and make contain errors or omissions. [facility] Disclaimer: The information contained in this section may have been updated after the patient was seen, as this information can be updated by other users. Medical History Acute respiratory failure with hypoxia Asthma Back pain CAD in [place] artery Coronary artery disease Cough DDD (degenerative disc disease) Dilatation of bladder Diverticulosis Dyspnea on exertion Excessive cerumen in both ear canals Gallstones GERD (gastroesophageal reflux disease) Heart disease History of asthma History of asthma History of sleep apnea History of sleep apnea History of smoking 30 or more pack years Hypertensive urgency Interstitial cystitis Left lower lobe pneumonia Nocturnal hypoxia In the setting of untreated severe ZACH. Osteoporosis right FA Overactive bladder Persistent dry cough Pleural effusion, bilateral Pneumonia Pulmonary hypertension Renal failure stage 3 UTI (urinary tract infection) UTI (urinary tract infection) UTI due to Klebsiella species Vaginal y
[2023-04-14 10:30] VITALS: BP 125/62; PULSE 107; RESP 19; O2SAT 100; BMI 33.0
[2023-04-14 13:50] LABS: Microscopic, Urine URINE MICROSCOPIC (MICROSCOPIC)
[2023-04-14 14:48] LABS: Blood Urea Nitrogen 56 mg/dl (7-17); Creatinine Clearance Estimated 23 mL/min (50-200); Estimated Glomerular Filt Rate 19 ml/min (>60); GFR (African American) 23 ML/MIN (>60)
[2023-04-14 15:10] LABS: Appearance,Urine CLEAR (Clear); Bilirubin,Urine Negative (Negative); Blood, Urine Negative (Negative); Color,Urine YELLOW (Yellow); Glucose,Urine (UA) TRACE (Negative); Ketones,Urine Negative (Negative); Leukocyte Esterase,Urine Negative (Negative); Nitrate,Urine Negative (Negative); Protein,Urine Negative (Negative); Specific Gravity, Urine >= 1.030 (1.005-1.030); Urobilinogen,Urine 0.2 EU/dl (0.2)
[2023-04-14 15:24] LABS: Squamous Epithelial Cell,Urine Occasional #/hpf (0-5)
== END | disposition home or self-care (01) ==
PROVIDERS: Urology; PCP Nurse Practitioner Family; Visit Provider Nurse Practitioner Family
DX: N19 Unspecified kidney failure (principal); N39.0 Urinary tract infection, site not specified; M51.16 Intervertebral disc disorders with radiculopathy, lumbar region; M96.1 Postlaminectomy syndrome, not elsewhere classified; M47.26 Other spondylosis with radiculopathy, lumbar region; G89.4 Chronic pain syndrome
CPT/HCPCS: 36415; 81001; 82565; 84520; 87086; 99212; G0463

== ENCOUNTER → 2023-04-14 14:06 | Outpatient (CLI) | payer MEDICARE, SELFPAY ==
--- NOTE | 2023-04-14 14:07 | US_ITS ---
FINAL REPORT TECHNIQUE: Ultrasound images of the kidneys and bladder were obtained. CLINICAL HISTORY: renal failure COMPARISON: 10/19/2022 FINDINGS: The right kidney measures 8.1 cm in length. It is normal in echogenicity. There is no hydronephrosis. The left kidney measures 8.6 cm in length. It is normal in echogenicity. There is no hydronephrosis. IMPRESSION: No evidence of hydronephrosis or mass. No significant changes noted since the prior exam of September. Reviewed, Interpreted and Dictated by Keron Velasquez MD Transcribed by Daisy Egan Authenticated and [facility]
== END ==
LOC: RAD 14:07
PROVIDERS: PCP Urology; Visit Provider Urology
DX: N18.30 Chronic kidney disease, stage 3 unspecified; R82.90 Unspecified abnormal findings in urine; N28.9 Disorder of kidney and ureter, unspecified; M51.16 Intervertebral disc disorders with radiculopathy, lumbar region; M96.1 Postlaminectomy syndrome, not elsewhere classified; G89.4 Chronic pain syndrome; M47.26 Other spondylosis with radiculopathy, lumbar region
CPT/HCPCS: 36415; 76770; 81001; 82565; 84520; 87086; 99212; G0463

== ENCOUNTER 2023-05-13 10:07 | Outpatient (CLI) | payer MEDICARE, SELFPAY ==
--- NOTE | 2023-05-13 10:07 | MM_ITS ---
PROCEDURE INFORMATION: Exam: MG Bilateral Screening 3D Mammography Exam date and time: 05/13/2023 10:13 AM Age: 82 years old Clinical indication: Screening mammogram TECHNIQUE: Imaging protocol: Bilateral Screening tomosynthesis and 2D mammography including computer-aided detection (CAD) when performed. COMPARISON: 1. MG MM DIG SCREENING MAMM BI W/CAD 04/15/2022 9:42 AM 2. MG MM DIG SCREENING MAMM BI W/CAD 04/03/2021 1:10 PM 3. MG MM DIG SCREENING MAMM BI W/CAD 04/04/2020 8:24 AM 4. MG MY Digital Screen BILAT 04/09/2019 10:40 AM FINDINGS: MAMMOGRAPHY: Breast composition: The breasts are almost entirely fatty. Mass: None. Architectural distortion: No new or suspicious architectural distortion. Calcifications: Stable benign-appearing calcifications are present. No new or suspicious cluster of microcalcifications have developed. Asymmetric density: No new or suspicious asymmetric density is present Skin thickening: None. Axillary adenopathy: None. IMPRESSION: No mammographic evidence of malignancy. Recommend annual screening mammography unless otherwise clinically indicated. ASSESSMENT: BI-RADS category 2: Benign
== END 2023-05-13 23:59 ==
LOC: RAD 10:07
PROVIDERS: PCP Nurse Practitioner Family; Visit Provider Nurse Practitioner Family
DX: Z12.31 Encounter for screening mammogram for malignant neoplasm of breast (principal)
CPT/HCPCS: 77063; 77067

== ENCOUNTER 2023-05-16 06:36 | Day surgery (SDC) | payer MEDICARE, SELFPAY ==
[2023-05-12 13:30] VITALS: BMI 33.8
[2023-05-16 06:54] VITALS: BP 142/57; PULSE 97; RESP 22; TEMP 36.1; O2SAT 96
[2023-05-16] MEDS: LACTATED RINGERS 1000ML 1,000 ML 25 ML IV (07:04)
--- NOTE | 2023-05-16 08:11 | P.PCN_ITS ---
[facility] Procedure Note Date: 05/16/23 Time: 08:12
--- NOTE | 2023-05-16 08:11 | HMH.PROCNOTE ---
[facility] Procedure Note Date: 05/16/23 Time: 08:12
[2023-05-16 08:42] VITALS: BP 126/58; PULSE 84; RESP 16; TEMP 36.1; O2SAT 100
--- NOTE | 2023-05-16 08:52 | P.PCN_ITS ---
[facility] Procedure Note Date: 05/16/23 Procedure Note:: The patient was brought to the cystoscopy suite. She was prepped for cystoscopy. 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 They patient's urethra is intravaginal. She underwent cystoscopy as the scope was introduced into the bladder blindly due to the atrophic vaginitis and vaginal stenosis. The urethra is unremarkable. Ureteral orifices are normal bilaterally the bladder bladder is free of stone tumor hemorrhage or infection. The patient underwent simple urodynamics. She has a first sensation to void at 75 cc. Her bladder capacity is 275 cc. She tolerated the procedure well.
== END 2023-05-16 08:55 | disposition home or self-care (01) ==
PROVIDERS: PCP Nurse Practitioner Family; Visit Provider Urology
PROC: 0TJB8ZZ Inspection of Bladder, Via Natural or Artificial Opening Endoscopic (ICD-10-PCS; CPT 52000; principal; 2023-05-16 08:00)
DX: N95.2 Postmenopausal atrophic vaginitis (principal); Z87.440 Personal history of urinary (tract) infections; N90.89 Other specified noninflammatory disorders of vulva and perineum; N36.8 Other specified disorders of urethra
CPT/HCPCS: 51725; 52000

== ENCOUNTER 2023-06-02 21:34 | Outpatient (CLI) | payer MEDICARE, SELFPAY | END 2023-06-02 23:59 | LOC: LAB.DROPOF 21:35 | PROVIDERS: PCP Nurse Practitioner Family; Visit Provider Nurse Practitioner Family | DX: R82.998 Other abnormal findings in urine (principal); B96.1 Klebsiella pneumoniae [K. pneumoniae] as the cause of diseases classified elsewhere; B95.2 Enterococcus as the cause of diseases classified elsewhere | CPT/HCPCS: 87086 ==

== ENCOUNTER → 2023-06-09 09:41 | Outpatient (POV) | payer MEDICARE, SELFPAY ==
[2023-06-09 09:55] VITALS: BP 151/85; PULSE 118; RESP 18; O2SAT 94; BMI 33.3
--- NOTE | 2023-06-09 10:58 | A.OFFVIS_ITS ---
[facility] Pain Management SOAP Note Subjective:: Patient is a pleasant 82-year-old female who presents today for medication refill and follow-up. We are currently treating the patient for degenerative disc disease of lumbar spine with lumbar radiculopathy symptoms, lumbar postlaminectomy syndrome, lumbar spondylosis, chronic pain syndrome. Today she rates her pain a 9 out of 10. Patient states from our last visit she is continue to have UTI issues. She states that she is now on tetracycline to help clear this up. Patient does state that it has caused some upset stomach and nausea and that she is planning on following up with her primary care provider to see if she needs to be prescribed a different antibiotic. Patient has seen a urologist specialist who was recommending surgery however she was previously hoping the antibiotics would help clear this up. Patient does state from our previous discussions over the pain pump trial or spinal cord stimulator trial that she would like to go ahead and proceed forward with these options. Patient states that she never has heard from the psychological evaluation. Patient is currently managed with tramadol 50 mg twice a day. She denies any side effects from this medication however she states it only helps minimally. Her Doni has been reviewed and is appropriate. \ Review of Systems: General: No recent weight changes, no fever, no sleep disturbances Respiratory: No cough, no shortness of air, no recurring pulmonary infections Cardiovascular/peripheral vascular: No chest pain, no palpitations, no edema, no shortness of breath Gastrointestinal: No new onset incontinence, normal bowel movements reported Genitourinary: No new onset incontinence Musculoskeletal: Low back pain Psychiatric: [Normal mood/affect] Neurological: [Denies weakness in extremities], [denies balance issues] Objective:: Physical Exam: General: Alert and oriented x3, no acute distress, pleasant and cooperative Lungs: Respirations even and unlabored, symmetrical chest expansion Eyes: PERRL Musculoskeletal: Flexion and extension of lumbar [spine] somewhat guarded secondary to pain, [antalgic gait noted] Neurological: Speech clear, no gross sensory deficit Assessment:: Degenerative disc disease of lumbar spine with lumbar radiculopathy symptoms, lumbar postlaminectomy syndrome, lumbar spondylosis, chronic pain syndrome Plan:: Patient continues to experience chronic low back pain with limited range of motion of her lumbar spine. I have discussed with the patient that we will reach out regarding her psychology evaluation and make sure that she does get an appointment for evaluation. I will send in refills of her tramadol 50 mg twice a day and provide a 1 month supply of this medication. The risk and benefits of the intrathecal pain pump trial were explained to the patient and this is what she would like to plan to proceed forward with if she is deemed an appropriate candidate. Patient will return to clinic in 1 month for reevaluation of symptoms and plan of care. I will also send in a prescription of Zofran 4 mg 3 times daily as needed and provide 30 tablets. Risks and benefits of the medication have been explained in detail to the patient. The patient does understand the risk of dependence on the medication when given over a prolonged period. Patient has been advised of risks of oversedation with the prescribed medication. Narcan has been offered to the paitent in the event of oversedation. Patient has been advised that a family member should also be educated regarding administration of Narcan. The patient has been advised to consult with his/her primary care provider and pharmacist regarding drug-drug interaction of medications currently prescribed. Patient has been prescribed a controlled substance after being counseled on the medication, medication safety, and possible side effects. Opioid contract was reviewed and signed by the patient, and that they have agreed to all of the terms set forth by our compliance program. Patient has been instructed to contact the clinic with any concerns before the next appointment. Dr. Helms has reviewed this note and agrees with this plan of care. This note was dictated using voice recognition software and make contain errors or omissions. [facility] Disclaimer: The information contained in this section may have been updated after the patient was seen, as this information can be updated by other users. Medical History Acute respiratory failure with hypoxia Asthma Back pain CAD in makah artery Coronary artery disease Cough DDD (degenerative disc disease) Dilatation of bladder Diverticulosis Dyspnea on exertion Excessive cerumen in both ear canals Gallstones GERD (gastroesophageal reflux disease) Heart disease History of asthma History of asthma History of sleep apnea History of sleep apnea History of smoking 30 or more pack years Hypertensive urgency Interstitial cystitis Left lower lobe pneumonia Nocturnal hypoxia In the setting of untreated severe ZACH. Osteoporosis right FA Overactive bladder Persistent dry cough Pleural effusion, bilateral Pneumonia Pulmonary hypertension Renal failure stage 3 UTI (urinary tract infection) UTI (urinary tract infection) UTI due to Klebsiella species Vaginal yeast infection Vitamin D deficiency Surgical History H/O breast biopsy H/O gastric bypass H/O heart artery stent H/O: hysterectomy History of biopsy of bladder History of dilation and curettage History of renal stent Hx of cataract removal with insertion of prosthetic lens Hx of cholecystectomy Hx of colonoscopy 05/05/2021 Previous back surgery L4/5-decompression - 12/2021 Dr. Cem Amado at [facility] S/P cardiac catheterization 1999 Status post rotator cuff surgery right Family History Father Coronary artery disease Hyperlipidemia Hypertension Stroke Mother Coronary artery disease Heart attack Hyperlipidemia Hypertension Brother Cancer hepatic Coronary artery disease Diabetes Heart attack Hyperlipidemia Hypertension Stroke Sister Cancer ovarian Hyperlipidemia Hypertension Diabetes Son Coronary artery disease Heart attack Daughter Hyperlipidemia Hypertension Social History Smoking Status: Former smoker years smoked: 30 second hand exposure: No alcohol intake: never substance use type: denies use current occupational status: retired Travel in the last 8 weeks: None household members: none housing: house current occupational exposures/hazards: No caffeine: Yes
== END | disposition home or self-care (01) ==
PROVIDERS: Visit Provider Nurse Practitioner Family
DX: M51.16 Intervertebral disc disorders with radiculopathy, lumbar region (principal); M96.1 Postlaminectomy syndrome, not elsewhere classified; M47.26 Other spondylosis with radiculopathy, lumbar region; G89.4 Chronic pain syndrome
CPT/HCPCS: 99212; G0463

== ENCOUNTER 2023-06-14 10:07 | Inpatient (IN) | payer MEDICARE, SELFPAY ==
[2023-06-14 10:12] VITALS: BP 126/47; PULSE 78; O2SAT 96
[2023-06-14 10:14] VITALS: BP 126/47; PULSE 82; RESP 16; O2SAT 97; BMI 33.0
--- NOTE | 2023-06-14 10:20 | ECG_ITS ---
APPROVED REPORT Exam: Resting ECG HR:73 bpm ECG Measurements Heart Rate 73 AXES VA 191 P 59 QRSd 105 QRS -4 QT 373 T 9 QTc 399 Conclusion SINUS RHYTHM LOW QRS VOLTAGE IN PRECORDIAL LEADS [QRS DEFLECTION < 1.0 mV IN CHEST LEADS] POSSIBLE ANTERIOR MYOCARDIAL INFARCTION , PROBABLY OLD [30 ms Q WAVE IN V3/V4, OR R < 0.2 mV IN V4] BORDERLINE ECG UNCONFIRMED REPORT Electronically signed by : Kalia Miranda MD 06/14/2023 21:54:09
--- NOTE | 2023-06-14 10:26 | XR_ITS ---
FINAL REPORT CLINICAL HISTORY: Shortness of breath COMPARISON: 03/17/2023 FINDINGS: A single portable view of the chest was obtained. The heart size and pulmonary vascularity are within normal limits. The mediastinum is within normal limits. No acute pulmonary abnormality is identified. The bony thorax is intact. There are postoperative changes in the right humeral head. IMPRESSION: No active cardiopulmonary disease. Reviewed, Interpreted and Dictated by Saroj Valdes III, MD Transcribed by Chiquita Nevarez Authenticated and [facility]
--- NOTE | 2023-06-14 10:26 | CT_ITS ---
FINAL REPORT TECHNIQUE: Axial CT images of the abdomen and pelvis were obtained without intravenous contrast. Coronal and sagittal reformatted images were also obtained.This study was performed with techniques to keep radiation doses as low as reasonably achievable (ALARA). Individualized dose reduction techniques using automated exposure control or adjustment of mA and/or kV according to the patient's size were employed. CLINICAL HISTORY: generalized abd pain COMPARISON: 04/27/2022 FINDINGS: Abdomen: There is mild right base atelectasis. The liver parenchyma is homogeneous. Postcholecystectomy. Postoperative pneumobilia is noted. The spleen, pancreas, and adrenals are unremarkable. There is no evidence of nephrolithiasis or hydronephrosis. There is no mass or adenopathy. Diffuse vascular calcifications are noted. There are postoperative changes in the stomach. Pelvis: The appendix is not identified. Sigmoid diverticulosis is noted. The urinary bladder is unremarkable. Post hysterectomy. There is no free fluid, mass, or adenopathy. IMPRESSION: Diverticulosis. Postoperative pneumobilia. Reviewed, Interpreted and Dictated by Saroj Valdes III, MD Transcribed by Chiquita Nevarez Authenticated and [facility]
--- NOTE | 2023-06-14 10:29 | ED_ITS ---
Discharge Plan Disposition Patient Disposition: Admitted Condition: Good Prescriptions Prescriptions: No Action aspirin [Adult Low Dose Aspirin] 81 mg tablet,delayed release (DR/EC) 81 mg PO DAILY furosemide 20 mg tablet 20 mg PO DAILY Premarin 0.625 mg/gram cream 0.625 mg vaginal DAILY Qty: 30 2RF Rx Instructions: Using finger technique she will apply daily for 2 weeks and then 3 times weekly thereafter. oxybutynin chloride 10 mg tablet extended release 24hr 10 mg PO DAILY Qty: 90 3RF fluconazole 150 mg tablet 150 mg PO Q3D Qty: 2 0RF albuterol sulfate 90 mcg/actuation HFA aerosol inhaler 2 puff inhalation Q4HP PRN (Reason: shortness of breath or wheezing) Qty: 8.5 5RF atorvastatin 40 mg tablet 40 mg PO DAILY Qty: 90 3RF clopidogrel 75 mg tablet 75 mg PO DAILY Qty: 90 3RF fenofibrate micronized 67 mg capsule 67 mg PO DAILY Qty: 90 3RF ipratropium-albuterol 0.5 mg-3 mg(2.5 mg base)/3 mL solution for nebulization 3 ml inhalation Q6RT PRN (Reason: Shortness Of Breath Or Wheezing) Qty: 90 3RF levothyroxine [Synthroid] 75 mcg tablet 75 mcg PO DAILY Qty: 90 3RF losartan 50 mg tablet 50 mg PO DAILY Qty: 90 3RF pantoprazole 40 mg tablet,delayed release (DR/EC) 40 mg PO DAILY Qty: 90 3RF spironolactone 25 mg tablet 25 mg PO BID Qty: 180 3RF trazodone 50 mg tablet 100 mg PO HS Qty: 180 3RF ursodiol 300 mg capsule 600 mg PO DAILY Qty: 180 3RF (DME) oxygen-air delivery systems Device See Rx Instructions .Route Rx Instructions: 2 liters at night gabapentin 10 % cream, metered-dose applicator 1 ea topical DIRECTED Rx Instructions: compound cream ketamine 5 % cream, metered-dose applicator 1 ea topical DIRECTED Rx Instructions: compound cream diclofenac sodium 1 % gel 2 g topical QID PRN (Reason: Pain) Rx Instructions: compound cream bupivacaine HCl 0.5 % (5 mg/mL) syringe 1 mg .Route DIRECTED PRN (Reason: Pain) Rx Instructions: compound cream baclofen 2 % cream, metered-dose applicator 1 ea topical DIRECTED PRN (Reason: Pain) Rx Instructions: compound cream ondansetron 4 mg tablet,disintegrating 4 mg PO Q8H PRN (Reason: nausea and vomiting) Qty: 30 0RF levofloxacin 750 mg tablet 750 mg PO DAILY 5 Days Qty: 5 0RF (DME) nebulizers [Aeroneb Go Nebulizer] Misc See Rx Instructions .Route Rx Instructions: As directed nitroglycerin 0.4 mg tablet, sublingual 0.4 mg sublingual Q5MINP PRN (Reason: chest pain) Rx Instructions: do not exceed 3 doses per episode. 1 SL tab every 5min x 3 doses. If chest pain not resolved after 3rd dose, then call 911. ondansetron 4 mg tablet,disintegrating 4 mg PO Q8H PRN (Reason: nausea and vomiting) Qty: 30 0RF tramadol 50 mg tablet 50 mg PO BID Qty: 60 0RF Rx Instructions: May take twice daily Referrals Follow up/Referrals: Karley Messer APRN [Primary Care Provider] - See instructions Clinical Impressions Clinical Impression: Generalized weakness, Hyponatremia, KACY (acute kidney injury) Discharge ED Provider: Daquan Watson General Adult HPI General Chief complaint: Weakness Stated complaint: weakness Time Seen by Provider: 06/14/23 10:18 Mode of Arrival: Wheelchair Source of Information: Patient Limitations: No Limitations Description of Symptoms (Recalled from ER Triage Doc. by RN): pt is transferred over by Elo Ambrocio APRN's office. When pt asked what type of symptoms she was having she stated, everything. pt c/o weakness, dizziness, SOA and nausea x1 wk. pt states she has increasingly gotten worse. pt arrives via wheelchair but at baseline is ambulatory. [facility] she has recurrent UTI's and has recently completed a course of levaquin. The PCP is concerned for kidney failure. History of Present Illness HPI narrative: 82-year-old female with past medical history significant for asthma, CAD s/p cardiac stents, DDD, GERD, ZACH, osteoporosis, pulmonary hypertension, history of chronic UTI recently finished Levaquin on yesterday, presents today for evaluation concerning generalized weakness with associated shortness of breath worse on exertion over the past week. Has also had dizziness characterized as lightheadedness as well as nausea and 1 episode of emesis. She complains of a generalized headache as well as moderate lower abdominal pain. States that she has been constipated over the past 3 days however has been passing gas. Has had decreased p.o. intake. Denies any fevers, chills, chest pain or any other associated symptoms at this time. Related Data Home Medications Medication Instructions Recorded Confirmed aspirin 81 mg tablet,delayed 81 mg PO DAILY HEART HEALTH 08/16/17 06/14/23 release (Adult Low Dose Aspirin) nitroglycerin 0.4 mg sublingual 0.4 mg sublingual Q5MINP PRN chest 10/18/22 06/14/23 tablet pain nebulizers (Aeroneb Go Nebulizer) 11/04/22 06/14/23 baclofen 2 % cream in metered-dose 1 ea topical DIRECTED PRN Pain 12/27/22 06/14/23 applicator bupivacaine HCl 0.5 % (5 mg/mL) 1 mg .Route DIRECTED PRN Pain 12/27/22 06/14/23 injection syringe diclofenac sodium 1 % topical gel 2 g topical QID PRN Pain 12/27/22 06/14/23 gabapentin 10 % cream in 1 ea topical DIRECTED Pain 12/27/22 06/14/23 metered-dose applicator ketamine 5 % cream in metered-dose 1 ea topical DIRECTED N/A 12/27/22 06/14/23 applicator oxygen-air delivery systems 12/27/22 06/14/23 furosemide 20 mg tablet 20 mg PO DAILY 02/10/23 06/14/23 Previous Rx's Medication Instructions Recorded albuterol sulfate 90 mcg/actuation 2 puff inhalation Q4HP PRN 11/25/22 aerosol inhaler shortness of breath or wheezing #8.5 grams atorvastatin 40 mg tablet 40 mg PO DAILY Cholesterol #90 tabs 11/25/22 clopidogrel 75 mg tablet 75 mg PO DAILY Blood Thinner #90 11/25/22 tabs fenofibrate micronized 67 mg 67 mg PO DAILY Cholesterol #90 caps 11/25/22 capsule ipratropium 0.5 mg-albuterol 3 mg 3 ml inhalation Q6RT PRN Shortness 11/25/22 (2.5 mg base)/3 mL nebulization Of Breath Or Wheezing #90 ea soln levothyroxine 75 mcg tablet 75 mcg PO DAILY THYROID #90 tabs 11/25/22 (Synthroid) losartan 50 mg tablet 50 mg PO DAILY Hypertension #90 11/25/22 tabs pantoprazole 40 mg tablet,delayed 40 mg PO DAILY Acid reflux #90 tabs 11/25/22 release spironolactone 25 mg tablet 25 mg PO BID Fluid #180 tabs 11/25/22 trazodone 50 mg tablet 100 mg PO HS sleep #180 tabs 11/25/22 ursodiol 300 mg capsule 600 mg PO DAILY gallstone 11/25/22 prevention #180 caps conjugated estrogens 0.625 mg/gram 0.625 mg vaginal DAILY #30 grams 04/11/23 vaginal cream (Premarin) oxybutynin chloride 10 mg 10 mg PO DAILY #90 tabs 04/11/23 tablet,extended release 24 hr fluconazole 150 mg tablet 150 mg PO Q3D 2 doses #2 tabs 06/02/23 levofloxacin 750 mg tablet 750 mg PO DAILY 5 days #5 tabs 06/09/23 ondansetron 4 mg disintegrating 4 mg PO Q8H PRN nausea and 06/09/23 tablet vomiting #30 tabs ondansetron 4 mg disintegrating 4 mg PO Q8H PRN nausea and 06/09/23 tablet vomiting #30 tabs tramadol 50 mg tablet 50 mg PO BID Pain #60 tabs 06/09/23 Allergies Allergy/AdvReac Type Severity Reaction Status Date / Time lisinopril Allergy Intermediate cough Verified 06/14/23 09:27 acetaminophen [From LORTAB] Allergy Unknown NA-NAUSEA Verified 06/14/23 09:27 atenolol [ATENOLOL] Allergy Unknown ASTHMA Verified 06/14/23 09:27 ATTACK ciprofloxacin [From CIPRO] Allergy Unknown SWELLING/RA Verified 06/14/23 09:27 SH codeine [CODEINE] Allergy Unknown I-RASH Verified 06/14/23 09:27 cortisone [CORTISONE] Allergy Unknown I-HIVES/SOB Verified 06/14/23 09:27 erythromycin base Allergy Unknown I-RASH Verified 06/14/23 09:27 [ERYTHROMYCIN BASE] hydrocodone [From LORTAB] Allergy Unknown NA-NAUSEA Verified 06/14/23 09:27 latex [LATEX] Allergy Unknown I-HIVES Verified 06/14/23 09:27 loratadine [LORATADINE] Allergy Unknown SWELLING Verified 06/14/23 09:27 metronidazole [From FLAGYL] Allergy Unknown NA-DIZZINES Verified 06/14/23 09:27 S minocycline [From MINOCIN] Allergy Unknown I-RASH Verified 06/14/23 09:27 Penicillins [PENICILLINS] Allergy Unknown I-RASH Verified 06/14/23 09:27 Sulfa (Sulfonamide Allergy Unknown I-RASH Verified 06/14/23 09:27 Antibiotics) [SULFA (SULFONAMIDE ANTIBIOTICS)] fluticasone AdvReac Fever Verified 06/14/23 09:27 [From Advair Diskus] levofloxacin AdvReac Verified 06/14/23 09:27 salmeterol AdvReac Fever Verified 06/14/23 09:27 [From Advair Diskus] beta blockers AdvReac Severe Uncoded 06/14/23 09:27 [facility] Disclaimer: The information contained in this section may have been updated after the patient was seen, as this information can be updated by other users. Medical History (Updated 06/14/23 @ 15:14 by Daquan Watson DO) Acute respiratory failure with hypoxia Asthma Back pain CAD in [place] artery Coronary artery disease Cough DDD (degenerative disc disease) Dilatation of bladder Diverticulosis Dyspnea on exertion Excessive cerumen in both ear canals Fall Gallstones GERD (gastroesophageal reflux disease) Heart disease History of asthma History of asthma History of sleep apnea History of sleep apnea History of smoking 30 or more pack years Hypertensive urgency Interstitial cystitis Left lower lobe pneumonia Nocturnal hypoxia Osteoporosis Overactive bladder Persistent dry cough Pleural effusion, bilateral Pneumonia Pulmonary hypertension Renal failure UTI (urinary tract infection) UTI (urinary tract infection) UTI due to Klebsiella species Vaginal yeast infection Vitamin D deficiency Surgical History H/O breast biopsy H/O gastric bypass H/O heart artery stent H/O: hysterectomy History of biopsy of bladder History of dilation and curettage History of renal stent Hx of cataract removal with insertion of prosthetic lens Hx of cholecystectomy Hx of colonoscopy Previous back surgery S/P cardiac catheterization Status post rotator cuff surgery Family History Father Coronary artery disease Hyperlipidemia Hypertension Stroke Mother Coronary artery disease Heart attack Hyperlipidemia Hypertension Brother Cancer hepatic Coronary artery disease Diabetes Heart attack Hyperlipidemia Hypertension Stroke Sister Cancer ovarian Hyperlipidemia Hypertension Diabetes Son Coronary artery disease Heart attack Daughter Hyperlipidemia Hypertension Social History Smoking Status: Never smoker years smoked: 30 second hand exposure: No alcohol intake: never substance use type: denies use current occupational status: retired Travel in the last 8 weeks: None household members: none housing: house current occupational exposures/hazards: No caffeine: Yes ROS Obtained: Yes All systems reviewed & no additional complaints except as documented Physical Exam General General appearance: alert and in no apparent distress Head Head exam: atraumatic and normocephalic Eye Eye exam: Present normal appearance, PERRL and EOMI ENT ENT exam: Present normal oropharynx and mucous membranes moist Neck Neck exam: Present full ROM; Absent meningismus Respiratory Respiratory exam: Absent respiratory distress, wheezes, stridor or accessory muscle use Cardiovascular Cardiovascular exam: Present normal rhythm Abdominal Exam Abdominal exam: Present soft and tenderness (Generalized tenderness to palpation of the abdomen however more focal in the right upper quadrant, left lower quadrant, suprapubic region and right lower quadrant); Absent distention, guarding, rebound or rigidity Neurological Exam Neurological exam: Present alert, oriented X3 and CN II-XII intact; Absent motor sensory deficit Psychiatric Psychiatric exam: Present normal affect and normal mood Skin Skin exam: Present warm and dry Medical Decision Making Medical Records Medical records reviewed: Yes I reviewed the patient's medical records. Doni Inquiry Pt receiving controlled substance: No Doni was queried for this patient: No Vital Signs: 06/14/23 10:14 06/14/23 10:12 Pulse Rate 78 Pulse Rate [Left] 82 Respiratory Rate 16 Blood Pressure 126/47 L Blood Pressure [Right Arm] 126/47 L Blood Pressure Mean [Right Arm] 73 02 Sat by Pulse Oximetry 97 96 Oxygen Delivery Method Room Air Room Air Lab Data Lab Results 06/14/23 10:30: WBC 9.6, RBC 4.25, Hgb 12.7, Hct 38.5, MCV 90.5, MCH 30.0, MCHC 33.1, RDW 15.3, Plt Count 275, MPV 9.2, Neut % (Auto) 55.2, Lymph % (Auto) 32.3, [place] % (Auto) 11.5 H, Eos % (Auto) 0.8, Baso % (Auto) 0.3, Neut # (Auto) 5.3, Lymph # (Auto) 3.1, [place] # (Auto) 1.1 H, Eos # (Auto) 0.1, Baso # (Auto) 0.0, Sodium 126 L, Potassium 4.3, Chloride 95 L, Carbon Dioxide 20 L, Anion Gap 15.3 H, BUN 46 H, Creatinine 3.40 H, Estimated Creat Clear 17, Estimated GFR 13 L*, Est GFR ( Amer) 16 L*, Glucose 108 H, Lactate 1.4, Calcium 9.3, Total Bilirubin 0.5, AST 30, ALT 20, Alkaline Phosphatase 88, Troponin I 0.02, Total Protein 7.1, Albumin 4.2, Globulin 2.9, Albumin/Globulin Ratio 1.4, Lipase 324 H 06/14/23 10:56: Urine Color Yellow, Urine Appearance Clear, Urine pH 5.5, Ur Specific [place] >= 1.030, Urine Protein Negative, Urine Glucose (UA) Negative, Urine Ketones Negative, Urine Blood Negative, Urine Nitrate Negative, Urine Bilirubin Negative, Urine Urobilinogen 0.2, Ur Leukocyte Esterase Trace, Urine RBC None, Urine WBC 3-5, Ur Squamous Epith Cells 5-10, Urine Bacteria Trace, Hyaline Casts Occasional, Urine Yeast 1+ 06/14/23 13:27: Sodium 123 L, Potassium 5.1, Chloride 97 L, Carbon Dioxide 19 L, Anion Gap 12.1, BUN 42 H, Creatinine 2.40 H D, Estimated Creat Clear 23, Estimated GFR 19 L*, Est GFR ( Amer) 23 L D, Glucose 97, Calcium 8.2 L, Troponin I 0.02 06/14/23 10:30 06/14/23 13:27 Orders (Tests/Meds): ED MEDICATIONS Generic Name Dose Route Start Last Admin Trade Name Freq PRN Reason Stop Dose Admin Sodium Chloride 10 ml 06/14/23 10:34 Sodium Chloride 0.9% 10ml Flush Syringe IV 07/14/23 10:33 NEEDED PRN Maintain IV Site Discontinued Medications Generic Name Dose Route Start Last Admin Trade Name Freq PRN Reason Stop Dose Admin Acetaminophen 1,000 mg 06/14/23 14:53 06/14/23 15:08 Acetaminophen 500mg Tab PO 06/14/23 14:54 1,000 mg ONCE ONE Administration Lactated Ringer's 500 mls @ 999 mls/hr 06/14/23 10:28 06/14/23 10:46 Lactated Ringer's 500ml IV 06/14/23 10:58 999 mls/hr .Q31M ONE Administration Morphine Sulfate 2 mg 06/14/23 10:26 06/14/23 10:46 Morphine 2mg/Ml Syringe IV 06/14/23 10:27 2 mg ONCE ONE Administration Ondansetron HCl 4 mg 06/14/23 10:26 06/14/23 10:46 Ondansetron 4mg/2ml Vial IV 06/14/23 10:27 4 mg ONCE ONE Administration ORDERS Category Date Time Status CT abdomen pelvis wo con Stat Cat Scan 06/14/23 10:26 Completed CXR --portable [XR chest portable] Stat Exams 06/14/23 10:26 Completed BMP [Basic Metabolic Panel] Stat Lab 06/14/23 13:27 Completed CBC w/Auto Diff [Complete Blood Count Auto Diff] Stat Lab 06/14/23 10:30 Completed CMP [Comprehensive Metabolic Panel] Stat Lab 06/14/23 10:30 Completed Lactic Acid Stat Lab 06/14/23 10:30 Completed Lipase Stat Lab 06/14/23 10:30 Completed Trop I [Troponin I] Stat Lab 06/14/23 10:30 Completed Troponin I Q3H Lab 06/14/23 13:27 Completed Troponin I Q3H Lab 06/14/23 16:30 Ordered UA [Urinalysis and Microscopic] Stat Lab 06/14/23 10:56 Completed ECG Data Tracing #1: I reviewed this ECG and interpreted as documented below: EKG personally interpreted by me. Normal sinus rhythm with a rate of [address] elevations are noted to suggest ischemia. HEART Score History (anamnesis): Slightly suspicious ECG: Normal Age: >65 years Risk factors: 3 or more risk factors Troponin: </= normal limit HEART Score: 4 Medical Decision Narrative: 82-year-old female with past medical history significant for asthma, CAD s/p cardiac stents, DDD, GERD, ZACH, osteoporosis, pulmonary hypertension, history of chronic UTI recently finished Levaquin on yesterday, presents today for evaluation concerning generalized weakness with associated shortness of breath worse on exertion over the past week. Has also had dizziness characterized as lightheadedness as well as nausea and 1 episode of emesis. She complains of a generalized headache as well as moderate lower abdominal pain. States that she has been constipated over the past 3 days however has been passing gas. On assessment, she was hemodynamically stable and in no acute distress. Afebrile. She did have tenderness to palpation of the abdomen in the right upper quadrant, right lower quadrant, suprapubic region and left lower quadrant without rebound or guarding. No peripheral edema. Chest is clear to auscultation bilaterally. Other physical exam findings unremarkable. Differential diagnoses include but not limited to ACS, electrolyte disturbance, viral syndrome, constipation, obstruction, gastroenteritis, pleural effusion, pneumonia, UTI, appendicitis, diverticulitis, among others. Lab work today remarkable for a WBC of 9.6. Initial CMP with sodium of 126, chloride 95, anion gap of 15.3, creatinine of 3.4 which appears to be elevated in comparison to patient's baseline, consistent with KACY. Lactate of 1.4. No transaminitis. Lipase 324. Urinalysis nitrite negative, trace leukocyte esterase, 3-5 WBCs, trace bacteria. Will not treat at this time as patient recently finished levofloxacin on yesterday and does not have any dysuria or hematuria. I did give patient a 500 cc bolus of LR and repeat a BMP and her sodium was 123. Chloride increased to 97. Creatinine trending down at 2.4 after fluids. On reassessment she remains medically stable and in no acute distress. I discussed ED workup results and current plan to admit in the se tting of her weakness, hyponatremia and KACY. She verbalized understanding and agreed with plan. I will consult with hospital medicine and discussed management and they agreed to evaluate patient and admit to their service. Critical Care Critical Care Time Critical Care Time: No
[2023-06-14] MEDS: ONDANSETRON 4MG/2ML VIAL 4 MG IV (10:46)
[2023-06-14] MEDS: MORPHINE 2MG/ML SYRINGE 2 MG IV (10:46)
[2023-06-14] MEDS: RINGERS SOLUTION,LACTATED 500 ML 999 ML IV (10:46)
[2023-06-14 10:48] LABS: Basophils % 0.3 % (0.1-2.0); Eosinophils # 0.1 K/mm3 (0.0-0.4); Eosinophils % 0.8 % (0.1-12.0); Hematocrit 38.5 % (37.0-47.0); Hemoglobin 12.7 g/dL (12.2-16.2); Lymphocytes # 3.1 K/mm3 (0.7-4.5); Lymphocytes % 32.3 % (10-50); Mean Corpuscular HGB Conc 33.1 g/dL (31.8-35.4); Mean Corpuscular Volume 90.5 fl (81-99); Mean Platelet Volume 9.2 fl (7.4-10.4); Monocytes # 1.1 K/mm3 (0.1-1.0); Monocytes % 11.5 % (1.7-9.3); Neutrophils # 5.3 K/mm3 (1.8-7.8); Neutrophils % 55.2 % (37.0-80.0); Platelet Count 275 K/mm3 (142-424); Red Blood Count 4.25 M/mm3 (4.20-5.40); Red Cell Distribution Width 15.3 % (11.5-17.5); White Blood Count 9.6 K/mm3 (4.8-10.8)
[2023-06-14 10:49] LABS: Chloride 95 mmol/L (98-107); Potassium 4.3 mmoL/L (3.5-5.1); Sodium 126 mmol/L (136-145)
[2023-06-14 10:51] LABS: Blood Urea Nitrogen 46 mg/dl (7-17); Creatinine Clearance Estimated 17 mL/min (50-200); Estimated Glomerular Filt Rate 13 ml/min (>60); GFR (African American) 16 ML/MIN (>60)
[2023-06-14 10:52] LABS: Alanine Aminotransferase 20 U/L (12-78); Albumin Level 4.2 g/dl (3.5-5.0); Albumin/Globulin Ratio 1.4 (1.1-1.8); Alkaline Phosphatase 88 U/L (38-126); Anion Gap 15.3 mEq/L (5-15); Aspartate Amino Transferase 30 U/L (14-36); Bilirubin,Total 0.5 mg/dl (0.2-1.3); Calcium 9.3 mg/dl (8.4-10.2); Carbon Dioxide 20 mmol/L (22.0-30.0); Globulin 2.9 g/dL (1.3-3.2); Glucose 108 mg/dl (74-100); Lipase 324 U/L (23-300); Total Protein,Serum 7.1 g/dl (6.3-8.2)
[2023-06-14 10:53] LABS: Lactic Acid 1.4 mmol/L (0.7-2.1)
--- NOTE | 2023-06-14 10:55 | PC.NURSE ---
pt was given a warm blanket no other needs at this time call light at bs
--- NOTE | 2023-06-14 10:56 | PC.NURSE ---
spoke with radiology and confirmed with MD to switch the CT to noncon
[2023-06-14 11:00] LABS: Microscopic, Urine URINE MICROSCOPIC (MICROSCOPIC)
[2023-06-14 11:01] LABS: Appearance,Urine CLEAR (Clear); Bilirubin,Urine Negative (Negative); Blood, Urine Negative (Negative); Color,Urine YELLOW (Yellow); Glucose,Urine (UA) Negative (Negative); Ketones,Urine Negative (Negative); Leukocyte Esterase,Urine TRACE (Negative); Nitrate,Urine Negative (Negative); PH,Urine 5.5 (5.0-8.5); Protein,Urine Negative (Negative); Specific Gravity, Urine >= 1.030 (1.005-1.030); Urobilinogen,Urine 0.2 EU/dl (0.2)
[2023-06-14 11:04] LABS: Troponin I 0.02 ng/ml (0.00-0.034)
[2023-06-14 11:18] LABS: Bacteria,Urine Trace /lpf; Hyaline Casts,Urine Occasional #/lpf (0); Yeast,Urine 1+ /lpf
--- NOTE | 2023-06-14 13:35 | PC.NURSE ---
called office for him to be paged for ed to speak with
[2023-06-14 13:47] LABS: Blood Urea Nitrogen 42 mg/dl (7-17); Creatinine Clearance Estimated 23 mL/min (50-200); Estimated Glomerular Filt Rate 19 ml/min (>60); GFR (African American) 23 ML/MIN (>60); Potassium 5.1 mmoL/L (3.5-5.1)
[2023-06-14 13:49] LABS: Anion Gap 12.1 mEq/L (5-15); Calcium 8.2 mg/dl (8.4-10.2); Carbon Dioxide 19 mmol/L (22.0-30.0); Chloride 97 mmol/L (98-107); Glucose 97 mg/dl (74-100); Sodium 123 mmol/L (136-145)
[2023-06-14 14:00] LABS: Troponin I 0.02 ng/ml (0.00-0.034)
--- NOTE | 2023-06-14 14:18 | PC.NURSE ---
Ready for Re Eval
[2023-06-14] MEDS: ACETAMINOPHEN 500MG TAB 1000 MG PO (15:08)
--- NOTE | 2023-06-14 16:18 | P.HP_ITS ---
History of Present Illness *Admission Date: 06/14/23 *Reason for visit:: Weakness *History of present illness: Ms. Chase is an 82-year-old female who presented to the ER as a transfer from her PCP due to just feeling ill. When asked what brought her to the ER she states everything. Having weakness, fatigue, nausea times a week since starting antibiotics for recurrent UTI. Denies any maribel fever. No diarrhea. Has had some emesis in the morning that she states is sputum from congestion overnight with her CPAP. Workup in the ER initiated because of recurrent UTIs and fatigue. Patient recently completed a course of Levaquin. Initial labs showed KACY. Patient was administered some IV fluids. Repeat labs showed persistent KACY and hyponatremia. She has a history of CAD, degenerative disc disease, GERD, ZACH, osteoporosis, pulmonary hypertension. Feels that she is just getting weaker and unable to take care of herself. Lives by herself, uses a rollator to get around. Has barely had the energy to get up and make herself food lately. Patient's daughter is with her on evaluation. Not eating well, only eating toast and crackers due to upset stomach from antibiotics. Also complaining of posterior headache that has been going on for 2 to 3 days after falling and hit ting her head at home. Due to her multiple complaints, KACY, hypokalemia, medicine was consulted for admission. On evaluation, patient is laying supine in bed. On room air. Afebrile. Interested in home health versus placement. Feels she needs rehab. Sawant positive for symptoms on review of systems. [facility] Disclaimer: The information contained in this section may have been updated after the patient was seen, as this information can be updated by other users. Medical History Acute respiratory failure with hypoxia Asthma Back pain CAD in [place] artery Coronary artery disease Cough DDD (degenerative disc disease) Dilatation of bladder Diverticulosis Dyspnea on exertion Excessive cerumen in both ear canals Fall Gallstones GERD (gastroesophageal reflux disease) Heart disease History of asthma History of asthma History of sleep apnea History of sleep apnea History of smoking 30 or more pack years Hypertensive urgency Interstitial cystitis Left lower lobe pneumonia Nocturnal hypoxia Osteoporosis Overactive bladder Persistent dry cough Pleural effusion, bilateral Pneumonia Pulmonary hypertension Renal failure UTI (urinary tract infection) UTI (urinary tract infection) UTI due to Klebsiella species Vaginal yeast infection Vitamin D deficiency Surgical History H/O breast biopsy H/O gastric bypass H/O heart artery stent H/O: hysterectomy History of biopsy of bladder History of dilation and curettage History of renal stent Hx of cataract removal with insertion of prosthetic lens Hx of cholecystectomy Hx of colonoscopy Previous back surgery S/P cardiac catheterization Status post rotator cuff surgery Family History Diabetes Brother Sister Coronary artery disease Father Mother Brother Son Hyperlipidemia Father Mother Brother Sister Daughter Heart attack Mother Brother Son Cancer Brother Sister Hypertension Father Mother Brother Sister Daughter Stroke Father Brother Social History Smoking Status: Never smoker years smoked: 30 second hand exposure: No alcohol intake: never substance use type: denies use current occupational status: retired Travel in the last 8 weeks: None household members: none housing: house current occupational exposures/hazards: No caffeine: Yes Review of Systems Review of Systems Review of systems (narrative): 14 point review of systems performed, pertinent positives and negatives as per HPI Meds Home Medications and Allergies Home Medications Medication Instructions Recorded Confirmed Type aspirin 81 mg tablet,delayed 81 mg PO DAILY HEART HEALTH 08/16/17 06/14/23 History release (Adult Low Dose Aspirin) nitroglycerin 0.4 mg sublingual 0.4 mg sublingual Q5MINP PRN chest 10/18/22 06/14/23 History tablet pain nebulizers (Aeroneb Go Nebulizer) 11/04/22 06/14/23 History albuterol sulfate 90 mcg/actuation 2 puff inhalation Q4HP PRN 11/25/22 06/14/23 Rx aerosol inhaler shortness of breath or wheezing #8.5 grams atorvastatin 40 mg tablet 40 mg PO DAILY Cholesterol #90 tabs 11/25/22 06/14/23 Rx clopidogrel 75 mg tablet 75 mg PO DAILY Blood Thinner #90 11/25/22 06/14/23 Rx tabs fenofibrate micronized 67 mg 67 mg PO DAILY Cholesterol #90 caps 11/25/22 06/14/23 Rx capsule ipratropium 0.5 mg-albuterol 3 mg 3 ml inhalation Q6RT PRN Shortness 11/25/22 06/14/23 Rx (2.5 mg base)/3 mL nebulization Of Breath Or Wheezing #90 ea soln levothyroxine 75 mcg tablet 75 mcg PO DAILY THYROID #90 tabs 11/25/22 06/14/23 Rx (Synthroid) losartan 50 mg tablet 50 mg PO DAILY Hypertension #90 11/25/22 06/14/23 Rx tabs pantoprazole 40 mg tablet,delayed 40 mg PO DAILY Acid reflux #90 tabs 11/25/22 06/14/23 Rx release spironolactone 25 mg tablet 25 mg PO BID Fluid #180 tabs 11/25/22 06/14/23 Rx trazodone 50 mg tablet 100 mg PO HS sleep #180 tabs 11/25/22 06/14/23 Rx ursodiol 300 mg capsule 600 mg PO DAILY gallstone 11/25/22 06/14/23 Rx prevention #180 caps baclofen 2 % cream in metered-dose 1 ea topical DIRECTED PRN Pain 12/27/22 06/14/23 History applicator gabapentin 10 % cream in 1 ea topical DIRECTED Pain 12/27/22 06/14/23 History metered-dose applicator ketamine 5 % cream in metered-dose 1 ea topical DIRECTED N/A 12/27/22 06/14/23 History applicator oxygen-air delivery systems 12/27/22 06/14/23 History furosemide 20 mg tablet 20 mg PO DAILY 02/10/23 06/14/23 History conjugated estrogens 0.625 mg/gram 0.625 mg vaginal DAILY #30 grams 04/11/23 06/14/23 Rx vaginal cream (Premarin) ondansetron 4 mg disintegrating 4 mg PO Q8H PRN nausea and 06/09/23 06/14/23 Rx tablet vomiting #30 tabs tramadol 50 mg tablet 50 mg PO BID Pain #60 tabs 06/09/23 06/14/23 Rx New Prescriptions to Start Prescriptions: Allergies Allergy/AdvReac Type Severity Reaction Status Date / Time lisinopril Allergy Intermediate cough Verified 06/14/23 09:27 acetaminophen [From LORTAB] Allergy Unknown NA-NAUSEA Verified 06/14/23 09:27 atenolol [ATENOLOL] Allergy Unknown ASTHMA Verified 06/14/23 09:27 ATTACK ciprofloxacin [From CIPRO] Allergy Unknown SWELLING/RA Verified 06/14/23 09:27 SH codeine [CODEINE] Allergy Unknown I-RASH Verified 06/14/23 09:27 cortisone [CORTISONE] Allergy Unknown I-HIVES/SOB Verified 06/14/23 09:27 erythromycin base Allergy Unknown I-RASH Verified 06/14/23 09:27 [ERYTHROMYCIN BASE] hydrocodone [From LORTAB] Allergy Unknown NA-NAUSEA Verified 06/14/23 09:27 latex [LATEX] Allergy Unknown I-HIVES Verified 06/14/23 09:27 loratadine [LORATADINE] Allergy Unknown SWELLING Verified 06/14/23 09:27 metronidazole [From FLAGYL] Allergy Unknown NA-DIZZINES Verified 06/14/23 09:27 S minocycline [From MINOCIN] Allergy Unknown I-RASH Verified 06/14/23 09:27 Penicillins [PENICILLINS] Allergy Unknown I-RASH Verified 06/14/23 09:27 Sulfa (Sulfonamide Allergy Unknown I-RASH Verified 06/14/23 09:27 Antibiotics) [SULFA (SULFONAMIDE ANTIBIOTICS)] fluticasone AdvReac Fever Verified 06/14/23 09:27 [From Advair Diskus] levofloxacin AdvReac Verified 06/14/23 09:27 salmeterol AdvReac Fever Verified 06/14/23 09:27 [From Advair Diskus] beta blockers AdvReac Severe Uncoded 06/14/23 09:27 Exam Data for Last 24 hours Vital signs and Labs for Last 24 Hours: Pulse Resp BP Pulse Ox O2 Del Method 82 16 126/47 L 97 Room Air 06/14/23 10:14 06/14/23 10:14 06/14/23 10:14 06/14/23 10:14 06/14/23 10:14 Laboratory Results - last 24 hr 06/14/23 10:30: WBC 9.6, RBC 4.25, Hgb 12.7, Hct 38.5, MCV 90.5, MCH 30.0, MCHC 33.1, RDW 15.3, Plt Count 275, MPV 9.2, Neut % (Auto) 55.2, Lymph % (Auto) 32.3, [place] % (Auto) 11.5 H, Eos % (Auto) 0.8, Baso % (Auto) 0.3, Neut # (Auto) 5.3, Lymph # (Auto) 3.1, [place] # (Auto) 1.1 H, Eos # (Auto) 0.1, Baso # (Auto) 0.0, Sodium 126 L, Potassium 4.3, Chloride 95 L, Carbon Dioxide 20 L, Anion Gap 15.3 H, BUN 46 H, Creatinine 3.40 H, Estimated Creat Clear 17, Estimated GFR 13 L*, Est GFR ( Amer) 16 L*, Glucose 108 H, Lactate 1.4, Calcium 9.3, Total Bilirubin 0.5, AST 30, ALT 20, Alkaline Phosphatase 88, Troponin I 0.02, Total Protein 7.1, Albumin 4.2, Globulin 2.9, Albumin/Globulin Ratio 1.4, Lipase 324 H 06/14/23 10:56: Urine Color Yellow, Urine Appearance Clear, Urine pH 5.5, Ur Specific [place] >= 1.030, Urine Protein Negative, Urine Glucose (UA) Negative, Urine Ketones Negative, Urine Blood Negative, Urine Nitrate Negative, Urine Bilirubin Negative, Urine Urobilinogen 0.2, Ur Leukocyte Esterase Trace, Urine RBC None, Urine WBC 3-5, Ur Squamous Epith Cells 5-10, Urine Bacteria Trace, Hyaline Casts Occasional, Urine Yeast 1+ 06/14/23 13:27: Sodium 123 L, Potassium 5.1, Chloride 97 L, Carbon Dioxide 19 L, Anion Gap 12.1, BUN 42 H, Creatinine 2.40 H D, Estimated Creat Clear 23, Estimated GFR 19 L*, Est GFR ( Amer) 23 L D, Glucose 97, Calcium 8.2 L, Troponin I 0.02 I & O for Last 24 hours: Intake & Output 06/11/23 06/12/23 06/13/23 06/14/23 23:59 23:59 23:59 23:59 Weight 82.1 kg Constitutional Constitutional: no acute distress, morbidly obese, chronically ill appearing and cooperative *Routine HEENT Exam Head: Present normocephalic and atraumatic Eye: Present EOMI ENT: Present mucous membranes moist Comments: TTP in posterior occiput/trapezius *Routine Neck Exam Neck: Present supple; Absent full ROM Comments: TTP in trapezius Routine Chest/Breast/Axilla Exam Chest wall: Absent tenderness *Routine Respiratory Exam Respiratory: Present normal respiratory effort; Absent accessory muscle use, prolonged expiratory phase, rhonchi, wheezes or crackles *Routine Cardiovascular Exam Cardiovascular: Present RRR, Normal S1 and Normal S2 *Routine Abdominal Exam Abdominal: Present soft, normoactive bowel sounds and tenderness (minor and nonfocal); Absent rebound or guarding *Routine Rectal Exam Rectal:: deferred *Routine Genitalia Exam Genitalia:: deferred *Routine Extremities Exam Extremities: Present full ROM and normal capillary refill; Absent edema *Routine Skin Exam Skin: Present intact and normal turgor *Routine Neurological Exam Neurological: Present alert, oriented X3 and moving all extremities; Absent altered mental status Assessment and Plan *Assessment and plan (1) Generalized weakness: Status: Acute Category: Medical Code(s): R53.1 - Weakness (2) Hyponatremia: Status: Acute Category: Medical Code(s): E87.1 - Hypo-osmolality and hyponatremia (3) KACY (acute kidney injury): Status: Acute Category: Medical Code(s): N17.9 - Acute kidney failure, unspecified (4) Fatigue: Status: Acute Category: Medical Code(s): R53.83 - Other fatigue (5) CAD (coronary artery disease): Status: Acute Qualifiers: Associated angina: without angina Coronary Disease-Associated Artery/Lesion type: [place] artery [place] vs. transplanted heart: [place] heart Qualified Code(s): I25.10 - Atherosclerotic heart disease of [place] coronary artery without angina pectoris Category: Medical Code(s): I25.10 - Atherosclerotic heart disease of [place] coronary artery without angina pectoris (6) HTN (hypertension): Status: Chronic Category: Medical Code(s): I10 - Essential (primary) hypertension (7) Asthma: Status: Acute Category: Medical Code(s): J45.909 - Unspecified asthma, uncomplicated (8) HLD (hyperlipidemia): Status: Chronic Qualifiers: Hyperlipidemia type: unspecified Qualified Code(s): E78.5 - Hyperlipidemia, unspecified Category: Medical Code(s): E78.5 - Hyperlipidemia, unspecified (9) Hypothyroid: Status: Acute Category: Medical Code(s): E03.9 - Hypothyroidism, unspecified (10) Chronic UTI: Status: Acute Category: Medical Code(s): N39.0 - Urinary tract infection, site not specified (11) Spinal stenosis of lumbar region: Status: Acute Category: Medical Code(s): M48.061 - Spinal stenosis, lumbar region without neurogenic claudication (12) CKD (chronic kidney disease) stage 3, GFR 30-59 ml/min: Status: Acute Qualifiers: Chronic kidney disease stage 3 subtype: unspecified whether 3a or 3b Qualified Code(s): N18.30 - Chronic kidney disease, stage 3 unspecified Category: Medical Code(s): N18.30 - Chronic kidney disease, stage 3 unspecified (13) Diastolic heart failure: Status: Acute Qualifiers: Heart failure chronicity: unspecified Qualified Code(s): I50.30 - Unspecified diastolic (congestive) heart failure Category: Medical Code(s): I50.30 - Unspecified diastolic (congestive) heart failure (14) Severe sleep apnea: Problem Comment: History of moderate ZACH, now severe, AHI 55, associated with significant hypoxemia. Decent CPAP compliance, AHI 5.4, some intolerance, CPAP titration still pending. Status: Acute Category: Medical Code(s): G47.30 - Sleep apnea, unspecified (15) Chronic low back pain: Status: Chronic Category: Medical Code(s): M54.50 - Low back pain, unspecified; G89.29 - Other chronic pain Plan 82-year-old female with multiple comorbidities and multiple complaints today. Discussed case with ER physician, request admission for hyponatremia, KACY, fatigue, and need for eval by therapy. Medicine agreed to admit. Problems addressed as follows: Hyponatremia KACY on CKD - White cell count normal, no signs of infection. Completed antibiotics for UTI, will hold unless patient develops any new symptoms. Sodium 123, carbon dioxide 19. Creatinine 2.4 BUN 42. Baseline creatinine approximately 1.5. Monitor for improvement will repeat CBC, CMP, magnesium ordered for the morning. -Gentle hydration with NS at 100 cc an hour overnight -PT/OT consults placed to assist with therapy recommendations. Hyperlipidemia CAD Hypertension - Continue Lipitor 40 mg daily, aspirin 81 mg daily, Plavix 75 g daily -No chest pain or palpitations.Blood pressure well-controlled. -Will hold losartan, Lasix, spironolactone in the setting of KACY Chronic pain/headache: Continue tramadol 50 mg twice daily as needed GERD: Continue pantoprazole 40 mg daily Gallbladder disease: continue ursodiol 600 mg daily for prevention of gallstones Sleep: Continue trazodone 100 mg nightly Hypothyroid: Continues to be 75 mcg daily, controlled per chart review Full code lovenox 30mg daily cardiac diet
--- NOTE | 2023-06-14 16:54 | PC.NURSE ---
called house for admission waiting on bed assignment
--- NOTE | 2023-06-14 17:07 | PC.NURSE ---
called report to teresa HARRIS on 2nd floor and answered all questions
[2023-06-14 17:47] VITALS: BP 146/71; PULSE 68; RESP 20; TEMP 36.7; O2SAT 96
[2023-06-14 18:03] VITALS: BP 146/71; PULSE 68; RESP 18; TEMP 36.9; O2SAT 98; BMI 34.2
--- NOTE | 2023-06-14 18:31 | PC.NURSE ---
Pt. to the floor and vss, family present, pt sats in the 90's on RA.
[2023-06-14] MEDS: 0.9 % SODIUM CHLORIDE 1000ML 1,000 ML 100 ML IV (19:00)
[2023-06-14 20:00] VITALS: BP 119/44; PULSE 74; RESP 18; TEMP 36.6; O2SAT 98
[2023-06-14] MEDS: TRAMADOL 50MG TABLET 50 MG PO (21:32)
[2023-06-14] MEDS: TRAZODONE 50MG TABLET 100 MG PO (21:34)
[2023-06-15 04:00] VITALS: BP 109/46; PULSE 81; RESP 18; TEMP 36.4; O2SAT 97; BMI 35.4
[2023-06-15] MEDS: 0.9 % SODIUM CHLORIDE 1000ML 1,000 ML 100 ML IV ×2 (04:55→18:29)
[2023-06-15 06:37] LABS: Eosinophils # 0.1 K/mm3 (0.0-0.4); Mean Corpuscular Volume 91.2 fl (81-99)
[2023-06-15 06:44] LABS: Chloride 103 mmol/L (98-107)
[2023-06-15 06:45] LABS: Potassium 4.7 mmoL/L (3.5-5.1); Sodium 124 mmol/L (136-145)
[2023-06-15 06:47] LABS: Alanine Aminotransferase 14 U/L (12-78); Aspartate Amino Transferase 26 U/L (14-36); Blood Urea Nitrogen 43 mg/dl (7-17); Creatinine Clearance Estimated 21 mL/min (50-200); Estimated Glomerular Filt Rate 16 ml/min (>60); GFR (African American) 20 ML/MIN (>60)
[2023-06-15 06:48] LABS: Albumin Level 2.8 g/dl (3.5-5.0); Albumin/Globulin Ratio 1.2 (1.1-1.8); Alkaline Phosphatase 52 U/L (38-126); Anion Gap 7.7 mEq/L (5-15); Basophils % 0.4 % (0.1-2.0); Bilirubin,Total 0.3 mg/dl (0.2-1.3); Calcium 7.9 mg/dl (8.4-10.2); Carbon Dioxide 18 mmol/L (22.0-30.0); Eosinophils % 1.1 % (0.1-12.0); Globulin 2.4 g/dL (1.3-3.2); Glucose 87 mg/dl (74-100); Hematocrit 30.3 % (37.0-47.0); Lymphocytes % 34.8 % (10-50); Magnesium 1.8 mg/dl (1.6-2.3); Mean Corpuscular HGB Conc 33.9 g/dL (31.8-35.4); Mean Corpuscular Hemoglobin 30.9 pg (27.0-31.2); Mean Platelet Volume 9.2 fl (7.4-10.4); Monocytes # 0.9 K/mm3 (0.1-1.0); Monocytes % 9.9 % (1.7-9.3); Neutrophils # 4.6 K/mm3 (1.8-7.8); Neutrophils % 53.7 % (37.0-80.0); Platelet Count 217 K/mm3 (142-424); Red Blood Count 3.32 M/mm3 (4.20-5.40); Red Cell Distribution Width 15.3 % (11.5-17.5); Total Protein,Serum 5.2 g/dl (6.3-8.2); White Blood Count 8.6 K/mm3 (4.8-10.8)
[2023-06-15 07:01] LABS: Hemoglobin 10.3 g/dL (12.2-16.2)
[2023-06-15 08:00] VITALS: BP 131/58; PULSE 87; RESP 17; TEMP 36.6; O2SAT 96
[2023-06-15] MEDS: ursodioL 300 MG CAPSULE 600 MG PO (08:16)
[2023-06-15] MEDS: CLOPIDOGREL 75MG TAB 75 MG PO (08:17)
[2023-06-15] MEDS: ASPIRIN EC 81MG TABLET 81 MG PO (08:17)
[2023-06-15] MEDS: LEVOTHYROXINE 75MCG (0.075MG) TAB 75 MCG PO (08:17)
[2023-06-15] MEDS: ONDANSETRON 4MG/2ML VIAL 4 MG IV (08:19)
--- NOTE | 2023-06-15 09:32 | SW/DCPLANNER ---
Addendum entered by Krystal Wilson 06/16/23 14:08: Briseyda read/ [facility] stated that services will start tomorrow for this patient. Addendum entered by Krystal Wilson 06/16/23 10:51: Patient information/order will be faxed to [facility] today. Original Note: I spoke w/ this patient regarding plans once medically stable for discharge. PT/OT evaluated this patient and recommended home health services. Patient is agreeable to home health services and prefers to use [facility] due to using this agency in the past. I will set up home health services once medically stable for discharge. Discharge date is unknown at this time.
--- NOTE | 2023-06-15 10:05 | HMH.OTEV ---
OT Inpatient Evaluation Rehab OT IP Evaluation Start: 06/14/23 20:11 Freq: ONCE Status: Active Protocol: Document 06/15/23 10:01 IVANJAVIERALAN (Rec: 06/15/23 10:05 [facility] [id number]) Rehab OT IP Assessment Subjective History Pt oriented x 3 on arrival. Pt agreeable to engage in therapy evaluation. Pt admitted on 06/14/23 due to KACY . History and Physical: Ms. Chase is an 82-year-old female who presented to the ER as a transfer from her PCP due to just feeling ill. When asked what brought her to the ER she states everything. Having weakness, fatigue, nausea times a week since starting antibiotics for recurrent UTI. Denies any maribel fever. No diarrhea. Has had some emesis in the morning that she states is sputum from congestion overnight with her CPAP. Workup in the ER initiated because of recurrent UTIs and fatigue. Patient recently completed a course of Levaquin . Initial labs showed KACY. Patient was administered some IV fluids. Repeat labs showed persistent KACY and hyponatremia. She has a history of CAD, degenerative disc disease, GERD, ZACH, osteoporosis, pulmonary hypertension. Feels that she is just getting weaker and unable to take care of herself . Lives by herself, uses a rollator to get around. Has barely had the energy to get up and make herself food lately. Patient's daughter is with her on evaluation. Not eating well, only eating toast and crackers due to upset stomach from antibiotics. Also complaining of posterior headache that has been going on for 2 to 3 days after falling and hitting her head at home. Due to her multiple complaints, KACY, hypokalemia, medicine was consulted for admission. Subjective I am still a little nauseated . Prior to being in the hospital , pt reports she lived at home alone. Pt claims normally she is independent with all ADLs and IADLs. She does use a rollator during funcitonal transfers. Pt still drives. Objective Patient Orientation Person,Place,Birthday Right Upper Extremity Gross ROM WFL Left Upper Extremity Gross ROM WFL Bed Mobility bed mobility-scooting,bed mobility - supine/sit Assist Level Supervision/Stand by Transfer Training Sit/Stand Transfer Assist Level Supervision/Stand by Chair Transfer Ability Supervision/Stand by Chair Transfer Technique Sit to/from Ambulatory Chair Transfer Assistive Devices Rolling Walker Lower Body Dressing Ability Standby Assistance Rehab OT IP prob,goals,plan Problems Date of Evaluation: 06/15/23 OT IP Problems Bed Mobility,Transfers,Balance ,Self care,Safety Rehab Potential Rehab Potential Innapropriate for Skilled Therapy Discharge Plan OT Discharge Plan Pt appears to be at her baseline with functional transfers and ADL independence . Pt can return home once she is medically stable per physician. Therapist recommends HH OT evaluation upon returning home. Eval Complexity Eval Charge Codes 77472 - Moderate Complexity PHYSICIAN CERTIFICATION: I certify the specified therapy services for Dianne Mcneal are required, authorized, and reviewed every 30 days.
[2023-06-15] MEDS: ENOXAPARIN 30MG/0.3ML SYRINGE 30 MG SQ (10:41)
--- NOTE | 2023-06-15 10:56 | EXP.PN ---
Subjective *Date: 06/15/23 *Time: 14:16 Interval history: patient was seen and evaluated at the bedside. No reported acute events overnight, denies chest pain, shortness of breath, nausea, vomiting, abdominal pain. Exam Data for Last 24 hours Vital signs and Labs for Last 24 Hours: Temp Pulse Resp BP Pulse Ox O2 Del Method 98 F 87 17 131/58 L 96 Room Air 06/15/23 08:00 06/15/23 08:00 06/15/23 08:00 06/15/23 08:00 06/15/23 08:00 06/15/23 09:00 Laboratory Results - last 24 hr 06/14/23 10:30: Troponin I 0.02 06/14/23 10:56: Urine Color Yellow, Urine Appearance Clear, Urine pH 5.5, Ur Specific [place] >= 1.030, Urine Protein Negative, Urine Glucose (UA) Negative, Urine Ketones Negative, Urine Blood Negative, Urine Nitrate Negative, Urine Bilirubin Negative, Urine Urobilinogen 0.2, Ur Leukocyte Esterase Trace, Urine RBC None, Urine WBC 3-5, Ur Squamous Epith Cells 5-10, Urine Bacteria Trace, Hyaline Casts Occasional, Urine Yeast 1+ 06/14/23 13:27: Sodium 123 L, Potassium 5.1, Chloride 97 L, Carbon Dioxide 19 L, Anion Gap 12.1, BUN 42 H, Creatinine 2.40 H D, Estimated Creat Clear 23, Estimated GFR 19 L*, Est GFR ( Amer) 23 L D, Glucose 97, Calcium 8.2 L, Troponin I 0.02 06/15/23 05:35: WBC 8.6, RBC 3.32 L, Hgb 10.3 L D, Hct 30.3 L, MCV 91.2, MCH 30.9, MCHC 33.9, RDW 15.3, Plt Count 217, MPV 9.2, Neut % (Auto) 53.7, Lymph % (Auto) 34.8, [place] % (Auto) 9.9 H, Eos % (Auto) 1.1, Baso % (Auto) 0.4, Neut # (Auto) 4.6, Lymph # (Auto) 3.0, [place] # (Auto) 0.9, Eos # (Auto) 0.1, Baso # (Auto) 0.0, Sodium 124 L, Potassium 4.7, Chloride 103, Carbon Dioxide 18 L, Anion Gap 7.7, BUN 43 H, Creatinine 2.80 H, Estimated Creat Clear 21, Estimated GFR 16 L*, Est GFR ( Amer) 20 L, Glucose 87, Calcium 7.9 L, Magnesium 1.8, Total Bilirubin 0.3, AST 26, ALT 14 D, Alkaline Phosphatase 52, Total Protein 5.2 L D, Albumin 2.8 L D, Globulin 2.4, Albumin/Globulin Ratio 1.2 I & O for Last 24 hours: Intake & Output 06/12/23 06/13/23 06/14/23 06/15/23 23:59 23:59 23:59 23:59 Intake Total 120 / 120 1310 / 1310 Output Total 0 / 0 0 / 0 Balance 120 / 120 1310 / 1310 Weight 85.02 kg 87.18 kg Constitutional Constitutional: no acute distress *Routine HEENT Exam Head: Present normocephalic Eye: Present EOMI and PERRL ENT: Present mucous membranes moist *Routine Neck Exam Neck: Present supple; Absent lymphadenopathy *Routine Respiratory Exam Respiratory: Present CTA bilaterally *Routine Cardiovascular Exam Cardiovascular: Present RRR *Routine Abdominal Exam Abdominal: Present soft and normoactive bowel sounds; Absent tenderness *Routine Extremities Exam Extremities: Absent cyanosis, clubbing or edema *Routine Skin Exam Skin: Present warm; Absent rash *Routine Neurological Exam Neurological: Present alert and oriented X3 Assessment and Plan *Assessment and plan (1) Generalized weakness: Status: Acute Category: Medical Code(s): R53.1 - Weakness (2) Hyponatremia: Status: Acute Category: Medical Code(s): E87.1 - Hypo-osmolality and hyponatremia (3) KACY (acute kidney injury): Status: Acute Category: Medical Code(s): N17.9 - Acute kidney failure, unspecified (4) Fatigue: Status: Acute Category: Medical Code(s): R53.83 - Other fatigue (5) CAD (coronary artery disease): Status: Acute Qualifiers: Associated angina: without angina Coronary Disease-Associated Artery/Lesion type: [place] artery [place] vs. transplanted heart: [place] heart Qualified Code(s): I25.10 - Atherosclerotic heart disease of [place] coronary artery without angina pectoris Category: Medical Code(s): I25.10 - Atherosclerotic heart disease of [place] coronary artery without angina pectoris (6) HTN (hypertension): Status: Chronic Category: Medical Code(s): I10 - Essential (primary) hypertension (7) Asthma: Status: Acute Category: Medical Code(s): J45.909 - Unspecified asthma, uncomplicated (8) HLD (hyperlipidemia): Status: Chronic Qualifiers: Hyperlipidemia type: unspecified Qualified Code(s): E78.5 - Hyperlipidemia, unspecified Category: Medical Code(s): E78.5 - Hyperlipidemia, unspecified (9) Hypothyroid: Status: Acute Category: Medical Code(s): E03.9 - Hypothyroidism, unspecified (10) Chronic UTI: Status: Acute Category: Medical Code(s): N39.0 - Urinary tract infection, site not specified (11) Spinal stenosis of lumbar region: Status: Acute Category: Medical Code(s): M48.061 - Spinal stenosis, lumbar region without neurogenic claudication (12) CKD (chronic kidney disease) stage 3, GFR 30-59 ml/min: Status: Acute Qualifiers: Chronic kidney disease stage 3 subtype: unspecified whether 3a or 3b Qualified Code(s): N18.30 - Chronic kidney disease, stage 3 unspecified Category: Medical Code(s): N18.30 - Chronic kidney disease, stage 3 unspecified (13) Diastolic heart failure: Status: Acute Qualifiers: Heart failure chronicity: unspecified Qualified Code(s): I50.30 - Unspecified diastolic (congestive) heart failure Category: Medical Code(s): I50.30 - Unspecified diastolic (congestive) heart failure (14) Severe sleep apnea: Problem Comment: History of moderate ZACH, now severe, AHI 55, associated with significant hypoxemia. Decent CPAP compliance, AHI 5.4, some intolerance, CPAP titration still pending. Status: Acute Category: Medical Code(s): G47.30 - Sleep apnea, unspecified (15) Chronic low back pain: Status: Chronic Category: Medical Code(s): M54.50 - Low back pain, unspecified; G89.29 - Other chronic pain Plan Patient is a 52-year-old female with past medical history of CAD hypertension hyperlipidemia who presents to the hospital for hyponatremia acute kidney injury. Assessment Hyponatremia Acute kidney injury -Continue IV fluids Monitor and replace electrolytes Continue to monitor creatinine Hold nephrotoxic medications Check urine osmolality Plasma osmolality Check urine electrolytes Hypertension Hyperlipidemia CAD -Continue home Lipitor, aspirin, Plavix Hold diuretics DVT prophylaxis-Lovenox
[2023-06-15] MEDS: ACETAMINOPHEN 500MG TAB 500 MG PO (10:58)
[2023-06-15 11:22] VITALS: BMI 35.3
--- NOTE | 2023-06-15 12:29 | HMH.PTEV ---
Physical Therapy Evaluation Rehab PT IP Evaluation Start: 06/14/23 20:11 Freq: ONCE Status: Active Protocol: Document 06/15/23 12:22 CLARE (Rec: 06/15/23 12:29 CLARE [email or web address]) Subjective/History History History Per H&P: Ms. Chase is an 82-year- old female who presented to the ER as a transfer from her PCP due to just feeling ill. When asked what brought her to the ER she states everything. Having weakness, fatigue, nausea times a week since starting antibiotics for recurrent UTI. Denies any maribel fever. No diarrhea. Has had some emesis in the morning that she states is sputum from congestion overnight with her CPAP. Workup in the ER initiated because of recurrent UTIs and fatigue. Patient recently completed a course of Levaquin . Initial labs showed KACY. Patient was administered some IV fluids. Repeat labs showed persistent KACY and hyponatremia. She has a history of CAD, degenerative disc disease, GERD, ZACH, osteoporosis, pulmonary hypertension. Feels that she is just getting weaker and unable to take care of herself . Lives by herself, uses a rollator to get around. Has barely had the energy to get up and make herself food lately. Patient's daughter is with her on evaluation. Not eating well, only eating toast and crackers due to upset stomach from antibiotics. Also complaining of posterior headache that has been going on for 2 to 3 days after falling and hitting her head at home. Due to her multiple complaints, KACY, hypokalemia, medicine was consulted for admission. Subjective Subjective PLOF: Home alone. IND with mobility and ADLs using rollator. Still drives. New diagnosis of cancer in past 12 No months? Rehab PT IP Eval Objective Appearance Patient Behavior Appropriate,Cooperative Patient Orientation Person,Place Difficulty following instructions none Ambulation Patient Able to Ambulate Yes Ambulation Observation IP General Gait Pattern Observation No Deviations/Normal Ambulation Distance (feet) 20 Ambulation Assistive Device Rolling Walker Ambulation Ability Supervision/Stand by Balance Ability to Arise Able, w/o using arms Sitting Balance Steady, safe Standing Balance Steady, wide stance Transfers Bed Transfer Ability Independent Sit to Stand Bed Transfer Ability Supervision/Stand by Rehab PT IP prob,goals,plan Problems Date of Evaluation: 06/15/23 Rehab Potential Rehab Potential Innapropriate for Skilled Therapy Discharge Plan PT Discharge Plan Pt okay to d/c home when deemed medically necessary. Pt seems to be at baseline function and not in need of skilled inpatient PT at this time. Recommending HH or OP PT services to address deficits. Eval Complexity Eval Charge Codes 40124 - Moderate Complexity PHYSICIAN CERTIFICATION: I certify the specified therapy services for Dianne Mcneal are required, authorized, and reviewed every 30 days.
--- NOTE | 2023-06-15 14:37 | PC.NURSE ---
patient remains alert and oriented x4 and VSS. Patient c/o a headache and mild nausea this morning, treated per MAR, no further complaints. Patient is agreeable to home health services post-discharge. Patient has been using her walker to go to and from the bathroom with standby to 1x assist.
[2023-06-15 16:00] VITALS: BP 129/56; PULSE 70; RESP 17; O2SAT 99
[2023-06-15 20:00] VITALS: BP 112/51; PULSE 73; RESP 18; TEMP 36.6; O2SAT 98
[2023-06-15] MEDS: ATORVASTATIN 40MG TABLET 40 MG PO (20:56)
[2023-06-15] MEDS: PANTOPRAZOLE 40MG TABLET 40 MG PO (20:56)
[2023-06-15] MEDS: TRAMADOL 50MG TABLET 50 MG PO (20:56)
[2023-06-15] MEDS: TRAZODONE 50MG TABLET 100 MG PO (20:56)
[2023-06-16 04:00] VITALS: BP 105/49; PULSE 69; RESP 18; TEMP 36.6; O2SAT 97; BMI 35.3
[2023-06-16] MEDS: 0.9 % SODIUM CHLORIDE 1000ML 1,000 ML 100 ML IV (04:08)
--- NOTE | 2023-06-16 04:53 | PC.NURSE ---
Pt is alert and oriented x4, requires standby assist to and from the BR and has voided x5 this shift. Fluids continue to infuse and pt is tolerating well. Pt has no complaints and denies needs at this time.
[2023-06-16] MEDS: LEVOTHYROXINE 75MCG (0.075MG) TAB 75 MCG PO (06:37)
[2023-06-16 08:00] VITALS: BP 142/60; PULSE 79; RESP 16; TEMP 36.9; O2SAT 98
[2023-06-16] MEDS: ASPIRIN EC 81MG TABLET 81 MG PO (08:53)
[2023-06-16] MEDS: ENOXAPARIN 30MG/0.3ML SYRINGE 30 MG SQ (08:53)
[2023-06-16] MEDS: ursodioL 300 MG CAPSULE 600 MG PO (08:53)
[2023-06-16] MEDS: CLOPIDOGREL 75MG TAB 75 MG PO (08:53)
[2023-06-16] MEDS: ACETAMINOPHEN 500MG TAB 500 MG PO (08:54)
[2023-06-16 09:33] LABS: Alanine Aminotransferase 15 U/L (12-78); Albumin/Globulin Ratio 1.2 (1.1-1.8); Alkaline Phosphatase 71 U/L (38-126); Anion Gap 10.1 mEq/L (5-15); Aspartate Amino Transferase 22 U/L (14-36); Bilirubin,Total 0.2 mg/dl (0.2-1.3); Blood Urea Nitrogen 31 mg/dl (7-17); Calcium 8.1 mg/dl (8.4-10.2); Carbon Dioxide 21 mmol/L (22.0-30.0); Chloride 107 mmol/L (98-107); Creatinine Clearance Estimated 28 mL/min (50-200); Estimated Glomerular Filt Rate 23 ml/min (>60); GFR (African American) 27 ML/MIN (>60); Globulin 2.5 g/dL (1.3-3.2); Glucose 88 mg/dl (74-100); Potassium 4.1 mmoL/L (3.5-5.1); Sodium 134 mmol/L (136-145); Total Protein,Serum 5.5 g/dl (6.3-8.2)
--- NOTE | 2023-06-16 10:38 | P.DS_ITS ---
General Admission date:: 06/14/23 Discharge date: 06/16/23 HPI HPI HPI: Ms. Chase is an 82-year-old female who presented to the ER as a transfer from her PCP due to just feeling ill. When asked what brought her to the ER she states everything. Having weakness, fatigue, nausea times a week since starting antibiotics for recurrent UTI. Denies any maribel fever. No diarrhea. Has had some emesis in the morning that she states is sputum from congestion overnight with her CPAP. Workup in the ER initiated because of recurrent UTIs and fatigue. Patient recently completed a course of Levaquin. Initial labs showed KACY. Patient was administered some IV fluids. Repeat labs showed persistent KACY and hyponatremia. She has a history of CAD, degenerative disc disease, GERD, ZACH, osteoporosis, pulmonary hypertension. Feels that she is just getting weaker and unable to take care of herself. Lives by herself, uses a rollator to get around. Has barely had the energy to get up and make herself food lately. Patient's daughter is with her on evaluation. Not eating well, only eating toast and crackers due to upset stomach from antibiotics. Also complaining of posterior headache that has been going on for 2 to 3 days after falling and hitting her head at home. Due to her multiple complaints, KACY, hypokalemia, medicine was consulted for admission. On evaluation, patient is laying supine in bed. On room air. Afebrile. Interested in home health versus placement. Feels she needs rehab. Sawant positive for symptoms on review of systems. Hospital Course Hospital Course Hospital Course: Patient was seen and evaluated at the bedside on the day of discharge. Patient wishes to be discharged. All patient questions were answered and patient was given time to ask questions. Patient was discharged in stable condition. Patient understands that she can return to ER in case of any sudden changes in health. Total time spent on DC - 38 mins Patient is a 52-year-old female with past medical history of CAD hypertension hyperlipidemia who presents to the hospital for hyponatremia acute kidney i njury. KACY has improved, Sodium level improved after saline infusion, Hold losartan, aldactone and lasix for 3 more days, and follow uo with PCP as OP, stable for discharge Exam Data for Last 24 hours Vital signs and Labs for Last 24 Hours: Temp Pulse Resp BP Pulse Ox O2 Del Method 98.4 F 79 16 142/60 H 98 Room Air 06/16/23 08:00 06/16/23 08:00 06/16/23 08:00 06/16/23 08:00 06/16/23 08:00 06/16/23 09:00 Laboratory Results - last 24 hr 06/16/23 09:00: Sodium 134 L, Potassium 4.1, Chloride 107, Carbon Dioxide 21 L, Anion Gap 10.1, BUN 31 H D, Creatinine 2.10 H D, Estimated Creat Clear 28, Estimated GFR 23 L, Est GFR ( Amer) 27 L D, Glucose 88, Calcium 8.1 L, Total Bilirubin 0.2, AST 22, ALT 15, Alkaline Phosphatase 71, Total Protein 5.5 L, Albumin 3.0 L, Globulin 2.5, Albumin/Globulin Ratio 1.2 I & O for Last 24 hours: Intake & Output 06/13/23 06/14/23 06/15/23 06/16/23 23:59 23:59 23:59 23:59 Intake Total 120 / 120 2029 / 2770 980 / 980 Output Total 0 / 0 0 / 0 0 / 0 Balance 120 / 120 2029 / 2769 980 / 980 Weight 85.02 kg 87 kg 87 kg Constitutional Constitutional: no acute distress *Routine HEENT Exam Head: Present normocephalic Eye: Present EOMI and PERRL ENT: Present mucous membranes moist *Routine Neck Exam Neck: Present supple; Absent lymphadenopathy *Routine Respiratory Exam Respiratory: Present CTA bilaterally *Routine Cardiovascular Exam Cardiovascular: Present RRR *Routine Abdominal Exam Abdominal: Present soft and normoactive bowel sounds; Absent tenderness *Routine Extremities Exam Extremities: Absent cyanosis, clubbing or edema *Routine Skin Exam Skin: Present warm; Absent rash *Routine Neurological Exam Neurological: Present alert and oriented X3 Results Data Completed and Pending Labs on day of discharge: Labs from last 24 hours 06/16/23 09:00 Sodium 134 L Potassium 4.1 Chloride 107 Carbon Dioxide 21 L Anion Gap 10.1 BUN 31 H D Creatinine 2.10 H D Estimated Creat Clear 28 Estimated GFR 23 L Est GFR ( Amer) 27 L D Glucose 88 Calcium 8.1 L Total Bilirubin 0.2 AST 22 ALT 15 Alkaline Phosphatase 71 Total Protein 5.5 L Albumin 3.0 L Globulin 2.5 Albumin/Globulin Ratio 1.2 DS: Diagnosis Discharge Diagnosis (1) Generalized weakness: Status: Acute Code(s): R53.1 - Weakness (2) Hyponatremia: Status: Acute Code(s): E87.1 - Hypo-osmolality and hyponatremia (3) KACY (acute kidney injury): Status: Acute Code(s): N17.9 - Acute kidney failure, unspecified (4) Fatigue: Status: Acute Code(s): R53.83 - Other fatigue (5) CAD (coronary artery disease): Status: Acute Code(s): I25.10 - Atherosclerotic heart disease of [place] coronary artery without angina pectoris Qualifiers: Associated angina: without angina Coronary Disease-Associated Artery/Lesion type: [place] artery [place] vs. transplanted heart: [place] heart Qualified Code(s): I25.10 - Atherosclerotic heart disease of [place] coronary artery without angina pectoris (6) HTN (hypertension): Status: Chronic Code(s): I10 - Essential (primary) hypertension (7) Asthma: Status: Acute Code(s): J45.909 - Unspecified asthma, uncomplicated (8) HLD (hyperlipidemia): Status: Chronic Code(s): E78.5 - Hyperlipidemia, unspecified Qualifiers: Hyperlipidemia type: unspecified Qualified Code(s): E78.5 - Hyperlipidemia, unspecified (9) Hypothyroid: Status: Acute Code(s): E03.9 - Hypothyroidism, unspecified (10) Chronic UTI: Status: Acute Code(s): N39.0 - Urinary tract infection, site not specified (11) Spinal stenosis of lumbar region: Status: Acute Code(s): M48.061 - Spinal stenosis, lumbar region without neurogenic claudication (12) CKD (chronic kidney disease) stage 3, GFR 30-59 ml/min: Status: Acute Code(s): N18.30 - Chronic kidney disease, stage 3 unspecified Qualifiers: Chronic kidney disease stage 3 subtype: unspecified whether 3a or 3b Qualified Code(s): N18.30 - Chronic kidney disease, stage 3 unspecified (13) Diastolic heart failure: Status: Acute Code(s): I50.30 - Unspecified diastolic (congestive) heart failure Qualifiers: Heart failure chronicity: unspecified Qualified Code(s): I50.30 - Unspecified diastolic (congestive) heart failure (14) Severe sleep apnea: Status: Acute Code(s): G47.30 - Sleep apnea, unspecified Problem details: History of moderate ZACH, now severe, AHI 55, associated with significant hypoxemia. Decent CPAP compliance, AHI 5.4, some intolerance, CPAP titration still pending. (15) Chronic low back pain: Status: Chronic Code(s): M54.50 - Low back pain, unspecified; G89.29 - Other chronic pain Meds Home Medications and Allergies Home Medications Medication Instructions Recorded Confirmed Type aspirin 81 mg tablet,delayed 81 mg PO DAILY HEART HEALTH 08/16/17 06/14/23 History release (Adult Low Dose Aspirin) nitroglycerin 0.4 mg sublingual 0.4 mg sublingual Q5MINP PRN chest 10/18/22 06/14/23 History tablet pain nebulizers (Aeroneb Go Nebulizer) 11/04/22 06/15/23 History albuterol sulfate 90 mcg/actuation 2 puff inhalation Q4HP PRN 11/25/22 06/14/23 Rx aerosol inhaler shortness of breath or wheezing #8.5 grams atorvastatin 40 mg tablet 40 mg PO DAILY Cholesterol #90 tabs 11/25/22 06/14/23 Rx clopidogrel 75 mg tablet 75 mg PO DAILY Blood Thinner #90 11/25/22 06/14/23 Rx tabs fenofibrate micronized 67 mg 67 mg PO DAILY Cholesterol #90 caps 11/25/22 06/14/23 Rx capsule ipratropium 0.5 mg-albuterol 3 mg 3 ml inhalation Q6RT PRN Shortness 11/25/22 06/14/23 Rx (2.5 mg base)/3 mL nebulization Of Breath Or Wheezing #90 ea soln levothyroxine 75 mcg tablet 75 mcg PO DAILY THYROID #90 tabs 11/25/22 06/14/23 Rx (Synthroid) losartan 50 mg tablet 50 mg PO DAILY Hypertension #90 11/25/22 06/14/23 Rx tabs pantoprazole 40 mg tablet,delayed 40 mg PO DAILY Acid reflux #90 tabs 11/25/22 06/14/23 Rx release spironolactone 25 mg tablet 25 mg PO BID Fluid #180 tabs 11/25/22 06/14/23 Rx trazodone 50 mg tablet 100 mg PO HS sleep #180 tabs 11/25/22 06/14/23 Rx ursodiol 300 mg capsule 600 mg PO DAILY gallstone 11/25/22 06/14/23 Rx prevention #180 caps baclofen 2 % cream in metered-dose 1 ea topical DIRECTED PRN Pain 12/27/22 06/14/23 History applicator gabapentin 10 % cream in 1 ea topical DIRECTED Pain 12/27/22 06/14/23 History metered-dose applicator ketamine 5 % cream in metered-dose 1 ea topical DIRECTED N/A 12/27/22 06/14/23 History applicator oxygen-air delivery systems 12/27/22 06/15/23 History furosemide 20 mg tablet 20 mg PO DAILY 02/10/23 06/14/23 History conjugated estrogens 0.625 mg/gram 0.625 mg vaginal DAILY #30 grams 04/11/23 06/14/23 Rx vaginal cream (Premarin) ondansetron 4 mg disintegrating 4 mg PO Q8H PRN nausea and 06/09/23 06/14/23 Rx tablet vomiting #30 tabs tramadol 50 mg tablet 50 mg PO BID Pain #60 tabs 06/09/23 06/14/23 Rx New Prescriptions to Start Prescriptions: Allergies Allergy/AdvReac Type Severity Reaction Status Date / Time lisinopril Allergy Intermediate cough Verified 06/14/23 09:27 atenolol [ATENOLOL] Allergy Unknown ASTHMA Verified 06/14/23 09:27 ATTACK ciprofloxacin [From CIPRO] Allergy Unknown SWELLING/RA Verified 06/14/23 09:27 SH codeine [CODEINE] Allergy Unknown I-RASH Verified 06/14/23 09:27 cortisone [CORTISONE] Allergy Unknown I-HIVES/SOB Verified 06/14/23 09:27 erythromycin base Allergy Unknown I-RASH Verified 06/14/23 09:27 [ERYTHROMYCIN BASE] hydrocodone [From LORTAB] Allergy Unknown NA-NAUSEA Verified 06/14/23 09:27 latex [LATEX] Allergy Unknown I-HIVES Verified 06/14/23 09:27 loratadine [LORATADINE] Allergy Unknown SWELLING Verified 06/14/23 09:27 metronidazole [From FLAGYL] Allergy Unknown NA-DIZZINES Verified 06/14/23 09:27 S minocycline [From MINOCIN] Allergy Unknown I-RASH Verified 06/14/23 09:27 Penicillins [PENICILLINS] Allergy Unknown I-RASH Verified 06/14/23 09:27 Sulfa (Sulfonamide Allergy Unknown I-RASH Verified 06/14/23 09:27 Antibiotics) [SULFA (SULFONAMIDE ANTIBIOTICS)] carvedilol Allergy Difficulty Verified 06/15/23 07:35 Breathing metoprolol Allergy Difficulty Verified 06/15/23 07:35 Breathing fluticasone AdvReac Fever Verified 06/14/23 09:27 [From Advair Diskus] levofloxacin AdvReac Unknown Verified 06/15/23 07:35 allergy reaction salmeterol AdvReac Fever Verified 06/14/23 09:27 [From Advair Diskus] Discharge Plan Disposition Patient Disposition: Home, Self-Care Condition: Good Discharge Order Discharge Orders: Discharge Order (Routine); Ordered 06/16/23 Ordered By: Ayse Bacon Follow up Plan Follow up with: Karley Messer APRN [Primary Care Provider] - 2 weeks Prescriptions/Medication Reconciliation: Continued aspirin [Adult Low Dose Aspirin] 81 mg tablet,delayed release (DR/EC) 81 mg PO DAILY Premarin 0.625 mg/gram cream 0.625 mg vaginal DAILY Qty: 30 2RF Rx Instructions: Using finger technique she will apply daily for 2 weeks and then 3 times weekly thereafter. albuterol sulfate 90 mcg/actuation HFA aerosol inhaler 2 puff inhalation Q4HP PRN (Reason: shortness of breath or wheezing) Qty: 8.5 5RF atorvastatin 40 mg tablet 40 mg PO DAILY Qty: 90 3RF clopidogrel 75 mg tablet 75 mg PO DAILY Qty: 90 3RF fenofibrate micronized 67 mg capsule 67 mg PO DAILY Qty: 90 3RF ipratropium-albuterol 0.5 mg-3 mg(2.5 mg base)/3 mL solution for nebulization 3 ml inhalation Q6RT PRN (Reason: Shortness Of Breath Or Wheezing) Qty: 90 3RF levothyroxine [Synthroid] 75 mcg tablet 75 mcg PO DAILY Qty: 90 3RF pantoprazole 40 mg tablet,delayed release (DR/EC) 40 mg PO DAILY Qty: 90 3RF trazodone 50 mg tablet 100 mg PO HS Qty: 180 3RF ursodiol 300 mg capsule 600 mg PO DAILY Qty: 180 3RF (DME) oxygen-air delivery systems Device See Rx Instructions .Route Rx Instructions: 2 liters at night gabapentin 10 % cream, metered-dose applicator 1 ea topical DIRECTED Rx Instructions: compound cream ketamine 5 % cream, metered-dose applicator 1 ea topical DIRECTED Rx Instructions: compound cream baclofen 2 % cream, metered-dose applicator 1 ea topical DIRECTED PRN (Reason: Pain) Rx Instructions: compound cream ondansetron 4 mg tablet,disintegrating 4 mg PO Q8H PRN (Reason: nausea and vomiting) Qty: 30 0RF (DME) nebulizers [Aeroneb Go Nebulizer] Misc See Rx Instructions .Route Rx Instructions: As directed nitroglycerin 0.4 mg tablet, sublingual 0.4 mg sublingual Q5MINP PRN (Reason: chest pain) Rx Instructions: do not exceed 3 doses per episode. 1 SL tab every 5min x 3 doses. If chest pain not resolved after 3rd dose, then call 911. tramadol 50 mg tablet 50 mg PO BID Qty: 60 0RF Rx Instructions: May take twice daily Held furosemide 20 mg tablet 20 mg PO DAILY Hold Instructions: Resume on 06/19/23. losartan 50 mg tablet 50 mg PO DAILY Qty: 90 3RF Hold Instructions: Resume on 06/19/23. spironolactone 25 mg tablet 25 mg PO BID Qty: 180 3RF Hold Instructions: Resume on 06/19/23. Problem Reconciliation Problems Reviewed?: Yes Patient Discharge Instructions ACTIVITY: Ambulate as tolerated DIET: continue same diet Patient Instructions: DI for Hyponatremia, DI for Muscle Weakness, DI for Acute Kidney Injury Providers Primary Care Provider: Karley Messer Admit Provider: Brain Tim Attending Provider: Brain Tim
--- NOTE | 2023-06-16 10:56 | HMH.PHAINT1 ---
Pharmacy Intervention Comments: DISCHARGE MEDICATION COUNSELING PROVIDED. DISCUSSED HOLDING LOSARTAN, FUROSEMIDE, AND SPIRONOLACTONE UNTIL TUESDAY (06/19/23). PATIENT VERBALIZED NO QUESTIONS AT THIS TIME.
--- NOTE | 2023-06-17 12:40 | CARE MANAGER ---
Contacted patient related to hospital discharge. Patient states she has had diarrhea. She denies any questions or concerns at this time. Home health is going to come next week. She is aware of follow up appointments and held the medications she was instructed to hold. STEVEN Augustin
== END 2023-06-16 12:44 | disposition home health service (06) | DRG 683 ==
LOC: ER 15:14 → 2ND 17:07
PROVIDERS: Nurse Practitioner Family; Admitting Provider Internal Medicine Adolescent Medicine; Emergency Provider Emergency Medicine; PCP Nurse Practitioner Family; Visit Provider Internal Medicine Adolescent Medicine
DX: N17.9 Acute kidney failure, unspecified (principal); E87.1 Hypo-osmolality and hyponatremia; N39.0 Urinary tract infection, site not specified; I50.30 Unspecified diastolic (congestive) heart failure; I13.0 Hypertensive heart and chronic kidney disease with heart failure and stage 1 through stage 4 chronic kidney disease, or unspecified chronic kidney disease; I25.10 Atherosclerotic heart disease of native coronary artery without angina pectoris; J45.909 Unspecified asthma, uncomplicated; E78.5 Hyperlipidemia, unspecified; E03.9 Hypothyroidism, unspecified; M48.061 Spinal stenosis, lumbar region without neurogenic claudication; N18.30 Chronic kidney disease, stage 3 unspecified; G47.30 Sleep apnea, unspecified; M54.50 Low back pain, unspecified; G89.29 Other chronic pain; K21.9 Gastro-esophageal reflux disease without esophagitis
CPT/HCPCS: 36415; 71045; 74176; 80048; 80053; 81001; 83605; 83690; 83735; 84484; 85025; 93005; 97162; 97166; 99285; J2405

== ENCOUNTER 2023-06-27 13:57 | Outpatient (CLI) | payer MEDICARE, SELFPAY ==
[2023-06-27 15:01] LABS: Anion Gap 10.1 mEq/L (5-15); Blood Urea Nitrogen 35 mg/dl (7-17); Calcium 9.5 mg/dl (8.4-10.2); Carbon Dioxide 27 mmol/L (22.0-30.0); Chloride 104 mmol/L (98-107); Estimated Glomerular Filt Rate 27 ml/min (>60); GFR (African American) 33 ML/MIN (>60); Glucose 93 mg/dl (74-100); Potassium 5.1 mmoL/L (3.5-5.1); Sodium 136 mmol/L (136-145)
== END 2023-06-27 23:59 ==
LOC: LAB.DROPOF 13:57
PROVIDERS: Nurse Practitioner Family; PCP Urology; Visit Provider Urology
DX: N17.9 Acute kidney failure, unspecified (principal)
CPT/HCPCS: 80048

== ENCOUNTER → 2023-07-07 09:10 | Outpatient (POV) | payer MEDICARE, SELFPAY ==
[2023-07-07 09:18] VITALS: BP 191/83; PULSE 92; RESP 20; BMI 34.2
--- NOTE | 2023-07-07 09:35 | EXP.PAIN.SOA ---
[facility] Pain Management SOAP Note Subjective:: Patient is a pleasant 82-year-old female who presents today for follow-up and medication refill. Today she rates her pain at a 9 out of 10. Patient does state as of last week her urology issues are much better and that her UTI had resolved based on her lab work. Patient has been dealing with this for the last several months. Patient was previously discussed with him being a possible candidate for the intrathecal pain pump trial or spinal cord stimulator trial. Today she states that she did go for the psychological evaluation and would like to proceed forward with these options. Patient continues to have chronic pain throughout her low back and has had prior failed back surgery. Patient does also have symptoms into her legs and says that her left shoulder is bothering her. She states that she is scheduled to go see Dr. Amado here at [facility] for possible x-ray imaging. She denies any falls. Patient does also states she has been having a little bit of increased blood pressure and lightheadedness. Patient is prescribed tramadol 50 mg twice a day. She states that this only takes the edge off and sometimes that it can increase her dizziness so she only takes it when she is not having to go anywhere. She is requesting refills. Her Doni has been reviewed and is appropriate. Review of Systems: General: No recent weight changes, no fever, no sleep disturbances Respiratory: No cough, no shortness of air, no recurring pulmonary infections Cardiovascular/peripheral vascular: No chest pain, no palpitations, no edema, no shortness of breath Gastrointestinal: No new onset incontinence, normal bowel movements reported Genitourinary: No new onset incontinence Musculoskeletal: Low back pain left shoulder pain Psychiatric: [Normal mood/affect] Neurological: [Denies weakness in extremities], [denies balance issues] Objective:: Physical Exam: General: Alert and oriented x3, no acute distress, pleasant and cooperative Lungs: Respirations even and unlabored, symmetrical chest expansion Eyes: PERRL Musculoskeletal: Flexion and extension of lumbar [spine] somewhat guarded secondary to pain, [antalgic gait noted] Neurological: Speech clear, no gross sensory deficit Assessment:: Degenerative disc disease of lumbar spine with lumbar radiculopathy symptoms, lumbar postlaminectomy syndrome, lumbar spondylosis, chronic pain syndrome Plan:: Patient continues to experience significant pain throughout her low back with limited range of motion. Patient did have an appropriate psychological evaluation and was deemed an appropriate candidate for the device. I have discussed over the risk and benefits of the intrathecal pain pump trial and she would like to proceed forward with this plan of care. Patient is currently on blood thinner it is written by Dr. Davalos's office and we will confirm that she can stop this medication prior to this procedure. Patient has tried and failed conservative therapy such as oral medication, heat and ice, previous physical therapy, continued at home stretching exercise for longer than 12 weeks. We will submit to insurance for the intrathecal pain pump trial and contact the patient once we have approval. I will refill the patient's tramadol 50 mg twice a day and provide a 1 month supply of this medication. Patient has also been counseled that we will plan on titrating this medication 48 hours before the trial for more accurate results. Patient acknowledges understanding and wants to proceed forward. Patient has been instructed to contact the clinic with any concerns before the next appointment. Dr. Helms has reviewed this note and agrees with this plan of care. This note was dictated using voice recognition software and make contain errors or omissions. [facility] Disclaimer: The information contained in this section may have been updated after the patient was seen, as this information can be updated by other users. Medical History Abdominal pain Acute respiratory failure with hypoxia Anemia Asthma Asthma Atelectasis Atrophic vaginitis Back pain Benign paroxysmal vertigo Body aches Bradycardia CAD (coronary artery disease) CAD in [place] artery Chronic low back pain Chronic neck pain Chronic UTI CKD (chronic kidney disease) stage 3, GFR 30-59 ml/min Constipation Coronary artery disease Cough DDD (degenerative disc disease) Diastolic heart failure Dilatation of bladder Diverticulosis Dizziness Remains asymptomatic Dyspnea Dyspnea on exertion Excessive cerumen in both ear canals Fall Fatigue Functional abdominal pain syndrome Gallstones Generalized weakness GERD (gastroesophageal reflux disease) Heart disease History of asthma History of asthma History of sleep apnea History of sleep apnea History of smoking 30 or more pack years History of stent insertion of renal artery Left HLD (hyperlipidemia) HTN (hypertension) Hypertensive urgency Hyponatremia Hypothyroid Hypoxemia Injury of left hip Insomnia Internal carotid artery stenosis Noncritical plaque of the internal carotid arteries of the anterior circulation with symptomatic side less than nonsymptomatic side. No correlation to dizziness, left-sided weakness. Posterior circulation or distal vertebrobasilar arteries unremarkable appearance without evidence of significant stenosis or occlusion. Numerous risk factors otherwise placing her at risk for CVA. Prefers best medical therapy and risk factor reduction. Declines a referral to Dr. Sage given for further evaluation, treatment options despite risks and declined to go ahead and schedule MR ward in August 2023 for monitoring. Interstitial cystitis Left hip pain Left lower lobe pneumonia Left-sided weakness Loss of appetite Mesenteric artery insufficiency Neck pain Nocturnal hypoxia In the setting of untreated severe ZACH. 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 Decent CPAP compliance, AHI 5.4, some intolerance, CPAP titration still pending. Spinal stenosis of lumbar region Tubular adenoma of colon Urge incontinence UTI (urinary tract infection) UTI (urinary tract infection) UTI due to Klebsiella species Vaginal yeast infection Vitamin D deficiency Surgical History H/O breast biopsy H/O gastric bypass H/O heart artery stent H/O: hysterectomy History of biopsy of bladder History of dilation and curettage History of renal stent Hx of cataract removal with insertion of prosthetic lens Hx of cholecystectomy Hx of colonoscopy 05/05/2021 Previous back surgery L4/5-decompression - 12/2021 Dr. Cem Amado at [facility] S/P cardiac catheterization 1998 Status post rotator cuff surgery right Family History Father Coronary artery disease Hyperlipidemia Hypertension Stroke Mother Coronary artery disease Heart attack Hyperlipidemia Hypertension Brother Cancer hepatic Coronary artery disease Diabetes Heart attack Hyperlipidemia Hypertension Stroke Sister Cancer ovarian Hyperlipidemia Hypertension Diabetes Son Coronary artery disease Heart attack Daughter Hyperlipidemia Hypertension Social History Smoking Status: Never smoker years smoked: 30 second hand exposure: No alcohol intake: never substance use type: denies use current occupational status: other Travel in the last 8 weeks: None household members: none housing: house current occupational exposures/hazards: No caffeine: Yes
== END | disposition home or self-care (01) ==
PROVIDERS: PCP Nurse Practitioner Family; Visit Provider Nurse Practitioner Family
DX: M51.16 Intervertebral disc disorders with radiculopathy, lumbar region (principal); M96.1 Postlaminectomy syndrome, not elsewhere classified; M47.26 Other spondylosis with radiculopathy, lumbar region; G89.4 Chronic pain syndrome
CPT/HCPCS: G0463; 99212

== ENCOUNTER 2023-07-07 09:51 | Outpatient (CLI) | payer MEDICARE, SELFPAY ==
--- NOTE | 2023-07-07 09:58 | XR_ITS ---
FINAL REPORT CLINICAL HISTORY: lt shoulder pain COMPARISON: None FINDINGS: LEFT SHOULDER: 3 views of the left shoulder were obtained. There is no acute fracture or dislocation. There is mild AC joint and mild glenohumeral joint degenerative change. There is no soft tissue abnormality. IMPRESSION: Mild degenerative change without acute bony abnormality. Reviewed, Interpreted and Dictated by Saroj Valdes III, MD Transcribed by Chiquita Nevarez Authenticated and [facility]
== END 2023-07-07 23:59 ==
LOC: RAD 09:53
PROVIDERS: PCP Nurse Practitioner Family; Visit Provider Orthopaedic Surgery
DX: M25.512 Pain in left shoulder (principal)
CPT/HCPCS: 73030; 99212; G0463

== ENCOUNTER 2023-07-12 09:06 | Day surgery (SDC) | payer MEDICARE, SELFPAY ==
[2023-07-08 13:44] VITALS: BMI 34.2
[2023-07-12] MEDS: LACTATED RINGERS 1000ML 1,000 ML 25 ML IV (09:21)
[2023-07-12 09:27] VITALS: BP 179/77; PULSE 88; RESP 18; TEMP 36.1; O2SAT 95
--- NOTE | 2023-07-12 09:59 | EXP.ANES.CKL ---
[facility] Disclaimer: The information contained in this section may have been updated after the patient was seen, as this information can be updated by other users. 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 No correlation to dizziness, left-sided weakness. Posterior circulation or distal vertebrobasilar arteries unremarkable appearance without evidence of significant stenosis or occlusion. Numerous risk factors otherwise placing her at risk for CVA. Prefers best medical therapy and risk factor reduction. Declines a referral to Dr. Sage given for further evaluation, treatment options despite risks and declined to go ahead and schedule MR angio in August 2023 for monitoring. Severe sleep apnea History of moderate ZACH, now severe, AHI 55, associated with significant hypoxemia. Decent CPAP compliance, AHI 5.4, some intolerance, CPAP titration still pending. Neck pain Obesity Coronary artery disease CAD in [place] artery Pulmonary hypertension History of sleep apnea Nocturnal hypoxia In the setting of untreated severe ZACH. Dyspnea on exertion History of smoking 30 or more pack years Asthma Dizziness Remains asymptomatic Left-sided weakness History of stent insertion of renal artery Left Renal artery stenosis Left Diastolic heart failure Right-sided congestive heart failure History of sleep apnea History of asthma Pleural effusion, bilateral Pneumonia Acute respiratory failure with hypoxia CKD (chronic kidney disease) stage 3, GFR 30-59 ml/min Hypoxemia Bradycardia Spinal stenosis of lumbar region Dyspnea Cough UTI (urinary tract infection) Vaginal yeast infection Hypertensive urgency Chronic UTI Insomnia Hypothyroid HLD (hyperlipidemia) Vitamin D deficiency Overactive bladder Excessive cerumen in both ear canals Persistent dry cough Asthma HTN (hypertension) Osteoporosis right FA Interstitial cystitis Renal failure stage 3 Diverticulosis GERD (gastroesophageal reflux disease) Heart disease History of asthma Dilatation of bladder DDD (degenerative disc disease) Back pain Gallstones UTI (urinary tract infection) Left lower lobe pneumonia Atelectasis Renal insufficiency Anemia CAD (coronary artery disease) Benign paroxysmal vertigo Surgical History H/O gastric bypass History of renal stent H/O: hysterectomy Hx of cataract removal with insertion of prosthetic lens Hx of colonoscopy 05/05/2021 Status post rotator cuff surgery right H/O heart artery stent S/P cardiac catheterization 1998 History of biopsy of bladder H/O breast biopsy History of dilation and curettage Previous back surgery L4/5-decompression - 12/2021 Dr. Cem Amado at [facility] Hx of cholecystectomy Family History Father Coronary artery disease Hyperlipidemia Hypertension Stroke Mother Coronary artery disease Heart attack Hyperlipidemia Hypertension Brother Cancer hepatic Coronary artery disease Diabetes Heart attack Hyperlipidemia Hypertension Stroke Sister Cancer ovarian Hyperlipidemia Hypertension Diabetes Son Coronary artery disease Heart attack Daughter Hyperlipidemia Hypertension Social History Smoking Status: Never smoker years smoked: 30 second hand exposure: No alcohol intake: never substance use type: denies use current occupational status: other Travel in the last 8 weeks: None household members: none housing: house current occupational exposures/hazards: No caffeine: Yes [facility] Anesthesia Checklist Patient Identification Patient Identification: Arm Band Structural Data Admitted From: Home Planned Operative Procedure/s: Colonoscopy Consent for Planned Operative Procedure(s) Verified: Yes Verified Documents: Surgical Consent and History and Physical NPO Status Verified Time NPO: 00:00 Additional verifications Anesthesia Reactions: No Hx Blood Transfusions: No Blood Transfusion Reaction: No Airway Assessment Mallampati Score:: Class II C-Spine Mobility Assessed: Yes TMJ Mobility Assessed: Yes Dentition: Dentures-good fit (Upper partial removed) Neurological Assessment Level of Consciousness: Awake and Alert Anesthesia Plan Anesthesia Risk discussed: Yes Anesthesia Plan: Verified ASA Class: III Anesthesia Type: MAC
--- NOTE | 2023-07-12 10:26 | HMH.SCOPE ---
Procedure: Date: 07/12/23 Patient Date of :: 1940 Procedure Performed:: Colonoscopy with polypectomy Indications:: History of colon polyps Note: In May 2021 colonoscopy was somewhat complicated by poor relaxation and moderate tortuosity. Adenomatous polyps of the right colon, hepatic flexure, and transverse colon were excised. Hemorrhoidal tag/cushions and sigmoid diverticulosis also noted. Performing Provider:: Dandy Clark MD Referring Provider:: . Sedation:: Monitored anesthesia care Procedure:: After informed consent was obtained the patient was taken to the endoscopy suite. Sedation ensued after the patient was transferred to the left lateral decubitus position. Pulse, blood pressure, and oxygen saturation were monitored throughout the procedure. Digital rectal exam revealed no significant abnormality. The colonoscope was placed in position. The entire colon was evaluated. The colonoscope was carefully removed and the patient was transferred to recovery in stable condition. Please see findings and specimens below for detail. Findings:: Bowel preparation fair Significant spasticity/lack of relaxation Significant sigmoid tortuosity Unchanged sigmoid diverticulosis Unchanged hemorrhoids Sessile right colon polyp Specimens:: Sessile right colon polyp (cold snare) Note: Polyp not located in retrieval canister; therefore, no pathologic evaluation will be possible. Recommendations:: Repeat colonoscopy in 3-5 years secondary to history of polyps, non-retrievable polyp noted during this evaluation, spasticity/lack of relaxation, and tortuosity. Complications:: No immediate Estimated blood obtained (mL): 1 Comment:: Although polyp was not retrieved, it was a fairly small sessile polyp with overall appearance of a small tubular adenoma. Colonoscopy Component Colonoscopy Component Was a colonoscopy performed during today's procedure?: Yes Recommended follow up colonoscopy of at least 10 years?: No If no, follow up colonoscopy recommended in ___ years?: (See above) Reason for not recommending >/= 10 yr follow-up interval?: (See above)
[2023-07-12 10:29] VITALS: O2SAT 95
[2023-07-12 11:11] VITALS: PULSE 71; RESP 16; TEMP 36.6; O2SAT 91
[2023-07-12 11:22] VITALS: BP 140/57; PULSE 72; RESP 17; O2SAT 96
[2023-07-12 11:32] VITALS: BP 154/76; PULSE 69; RESP 18; O2SAT 99
[2023-07-12 11:42] VITALS: BP 169/65; PULSE 69; RESP 17; O2SAT 99
== END 2023-07-12 11:43 | disposition home or self-care (01) ==
PROVIDERS: PCP Nurse Practitioner Family; Visit Provider Surgery
PROC: 0DJD8ZZ Inspection of Lower Intestinal Tract, Via Natural or Artificial Opening Endoscopic (ICD-10-PCS; CPT 45378; principal; 2023-07-12 10:30)
DX: Z12.11 Encounter for screening for malignant neoplasm of colon (principal); Z86.010 Personal history of colon polyps; K56.2 Volvulus; K57.30 Diverticulosis of large intestine without perforation or abscess without bleeding; K64.8 Other hemorrhoids; D12.2 Benign neoplasm of ascending colon
CPT/HCPCS: 45385; 93005

== ENCOUNTER 2023-08-12 10:15 | Day surgery (SDC) | payer MEDICARE, SELFPAY ==
[2023-08-12] VITALS (8 sets, daily range): BP systolic 149–203; BP diastolic 63–103; PULSE 94–117; RESP 16–20; TEMP 36.4; O2SAT 94–97; BMI 34.2
[2023-08-12] MEDS: CLINDAMYCIN PHOSPHATE/D5W 900 MG/50 ML PIGGYBACK 100 MG IV (12:53)
[2023-08-12] MEDS: FENTANYL 100MCG/2ML VIAL 100 MCG (12:55)
[2023-08-12] MEDS: LIDOCAINE 1% 30ML PF VIAL 30 ML (12:55)
[2023-08-12] MEDS: diphenhydrAMINE 25MG CAPSULE 25 MG PO (13:11)
--- NOTE | 2023-08-12 14:44 | EXP.PAIN.PRO ---
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 This patient is failed all previous conservative treatments including injections, oral medications, physical therapy and she is not a candidate for any further surgery. We did a intrathecal pump trial today. She has had a successful psychological evaluation. Procedure Details:: Pain pump trial Pain pump trial Informed consent was obtained and the risk and benefits of the procedure was explained to the patient. The patient was taken to the procedure room and placed prone on the procedure table. Patient was prepped and draped in sterile fashion. C-arm fluoroscopy was used to view the lumbar spine. The skin and subcutaneous tissues were anesthetized using lidocaine. I placed a 18-gauge spinal needle into the L4-5 interspace and advanced until clear CSF was obtained. After this intrathecal catheter was inserted and advanced very easily to the L1 vertebral body. The needle was withdrawn. We were able to freely withdraw clear CSF through the catheter. We then injected intrathecal opioid single shot bolus of 25 mcg followed by saline and followed by the previous CSF that was withdrawn. The needle and catheter were then removed and a Band-Aid was placed. Patient tolerated the procedure well with no complications. We reevaluated the patient after 30 minutes to 1 hour. She was also reassessed by physical therapy. This patient had 90 to 100% relief in pain symptoms. She is walking better and standing better. She was much more functional. By all indications this did seem to be a successful intrathecal pump trial. If patient wants to proceed with permanent placement we will plan on intrathecal morphine 1 mg/mL to start at 100 mcg/day. Catheter tip will be at the T8 vertebral body. Catheter entry will be at L4-L5. Plan and Disposition:: Will follow-up with this patient in 1 week we will evaluate efficacy of this intrathecal pump trial. If successful again we will plan on intrathecal morphine 1 mg/mL to start at 100 mcg/day. Catheter tip will be at the T8 vertebral body. Catheter entry with L4-L5 vertebral bodies.
== END 2023-08-12 14:09 | disposition home or self-care (01) ==
LOC: SC.PAINP 10:16
PROVIDERS: PCP Nurse Practitioner Family; Visit Provider Anesthesiology
DX: M96.1 Postlaminectomy syndrome, not elsewhere classified (principal); M54.16 Radiculopathy, lumbar region
CPT/HCPCS: 62323

== ENCOUNTER 2023-08-15 11:00 | Outpatient (RCR) | payer MEDICARE, SELFPAY ==
--- NOTE | 2023-07-11 11:33 | HMH.OTOPEV ---
OT Inpatient Evaluation Rehab OT Outpatient Eval Start: 07/11/23 11:19 Freq: Status: Active Protocol: Document 07/11/23 11:19 BO (Rec: 07/11/23 11:33 [facility] [id number][facility] E-signed By Jona Ramos, OT Outpatient Therapy Subjective History Subjective History Pt is an 82 year old female who reports to therapy for initial evaluation to left shoulder. Pt initially injured left shoulder several years ago when she fell in her garden. She was able to improve motion and pain in left shoulder doing therapy. However, ~1 month ago she re- injured left shoulder while in the hospital. Pt claims while being helped out of bed she felt a twinge in the shoulder. Since this, she has had constant pain along with decreased AROM and strength. Pt is right hand dominant. At this time, she has not had a MRI completed. Her x-ray showed mild degenerative changes. Pt does stll live at home alone. She uses as rollator during functional transfers. Normally she is independent with all ADLs such as dressing and bathing. However, recently she has had increased difficulty with bathing becasue of shoulder pain and lack of motion. Pt does demonstrates with a significant decline in AROM and strength at left shoulder during evaluation. Pt will continue to be seen in order to address left shoulder deficits. 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 Chief Complaint Pain,Stiff,Weakness Symptom Type Ache,Throb,Sharp,Dull Symptoms Relieved By Rest/Positioning,Heat,OTC Meds Symptoms Aggravated By Physical Activity,Lifting Prior Functional Limitations None Current Functional Limitations Reaching,Lifting,Housework, Dressing,Sleeping,Recreation Activity Symptom Description Constant but Variable,Activity Dependent Level of pain today (0-10) 4 Pain scale - at its best (0-10) 4 Pain scale - at its worst (0-10) 10 Shoulder/Elbow Eval Shoulder Objective Measurements Shoulder ROM Left Shoulder Abduction Active Range of 55 degrees Motion (degrees) Shoulder Flexion Active Range of Motion 80 degrees (degrees) Query Text: Shoulder External Rotation Active Range 30 degrees of Motion (degrees) Shoulder Internal Rotation Active Range 45 degrees of Motion (degrees) Shoulder MMT Shoulder Abduction Strength Grade 3 Fair Shoulder Flexion Strength Grade 3 Fair Shoulder External Rotation Strength 3 Fair Grade Shoulder Internal Rotation Strength 3 Fair Grade Shoulder Strength Patient Testing Sitting Position Elbow Objective Measurements QuickDASH Activities Please rate your ability to do the following activities in the last week by selecting the number below the appropriate response. 1. Open a tight or new jar. Severe difficulty 2. 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 3. Carry a shopping bag or briefcase. Severe difficulty 4. Wash your back. Unable 5. Use a knife to cut food. Severe difficulty 6. Recreational activities in which you Unable take some force or impact through your arm, shoulder, or hand (e.g., golf, hammering, tennis, etc.). 7. During the past week, to what extent Extremely has your arm, shoulder or hand problem interfered with your normal social activities with family, friends, neighbors or groups? 8. During the past week, were you Unable limited in your work or other regular daily activites as a result of your arm, shoulder or hand problem? 9. Arm, shoulder or hand pain. Extreme 10. Tingling (pins and needles) in your Extreme arm, shoulder or hand. 11. During the past week, how much Moderate difficulty difficulty have you had sleeping because of the pain in your arm, shoulder or hand? Quick DASH 50 OT Outpatient Assessment Impairments Problems/Impairments Palpation Tenderness,Impaired Range of Motion,Impaired Strength,Impaired Endurance, Impaired Lifting,Impaired Dressing,Impaired Shower/ Bathing,Impaired Household Care,Impaired Recreational Activities,Impaired Work Activities,Subjective C/O Pain Prognosis Rehab Potential Good Clinical Impression Consistent with Diagnosis Yes Short Term Goals Number of Weeks 3 Increase Range of Motion Yes: Flex: 110 Abd: 110 ER: 55 IR: 55 Increase Strength Yes: 3+,4-/5 throughout left shoulder Increase Endurance Yes: Pt will tolerate L shoulder exercises for ~20 min prior to rest. Decrease Subjective C/O Pain Yes: 6/10 at worst Patient to be Ind w/ HEP Yes: AAROM exercises Improve Quick Dash Score Yes: 40 or below Assisted Goals Number of Weeks 6 Increase Range of Motion Yes: Flex: 120 Abd: 120 ER: 75 IR: 60 Increase Strength Yes: 4/5 throughout left shoulder Increase Endurance Yes: Pt will tolerate L shoulder exercises for ~30 minutes prior to rest. Decrease Subjective C/O Pain Yes: 4/10 at worst Patient to be Ind w/ Advanced HEP Yes: Advanced strengthening exercises Improve Quick Dash Score Yes: 35 or below Outpatient Therapy Plan of Care Treatment Plan May Include Therapeutic Exercise Including Home Yes Exercise Program Manual Therapy Techniques Yes Neuromuscular Re-education Yes Therapeutic Activities to Return to Yes Previous Functional/Work Level ADL/Self Care Education Yes Thermal Modalities Yes Electrical Stimulation Yes Ultrasound/Phonophoresis Yes Iontophoresis Yes Orthotics/Bracing/Splinting Yes Massage Yes Eval/Re-Eval Yes Frequency Times per week 2 Duration Number of Weeks 6 Addendums This patient is a candidate for social No or vocational rehab? Patient/Guardian verbally acknowledges Yes understanding of treatment program and consents to further treatment? Patient/Guardian verbally acknowledges Yes understanding of diagnosis, prognosis and goals for treatment? Eval Complexity OT Charge 35836 - Moderate Complexity PHYSICIAN CERTIFICATION: I certify the specified therapy services for Dianne Mcneal are required, authorized, and reviewed every 30 days.
--- NOTE | 2023-08-09 12:54 | HMH.RHREAS ---
Rehab Reassessment Rehab OP Re-assessment Start: 07/11/23 10:51 Freq: Status: Active Protocol: Document 08/09/23 11:06 BO (Rec: 08/09/23 12:54 BO [id number]) E-signed By Jona Ramos OT Rehab Re-assessment Subjective Subjective It is still hurting bad. Objective Objective Notes Pt continues to be seen twice a week in order to address left shoulder deficits. Each session, pt engages in AROM, AAROM, and strengthening exercises. Pt also receives PROM manual stretching in all planes: flexion, abduction, ER , and IR. Modalities are provided in order to decrease pain/inflammation. Assessment Progress Assessment No Progress Assessment Notes Pt very consistent about attending therapy sessions. However, despite participation in therapy pt has not made any progress with left shoulder AROM, strength, or pain. Pt also continues to report pain at 10/10 at times. Pt returns to ortho on August 22 for re-evaluation. Current AROM at left shoulder Flex: 80 degrees Abd: 55 degrees ER: 40 degrees IR: 45 degrees Patient goals met [address] Goals Not Met See below Revised Goals ST, 2, 4, 5, and 6 LT-6 Plan Plan Continue with OT plan of care until pt goes to see ortho. Frequency of Therapy 2x's a week Duration of therapy 4 more weeks Time and Billing Re-Eval Time 16 Re-Eval Billing Units 1 PHYSICIAN CERTIFICATION: I certify the specified therapy services for Dianne Mcneal are required, authorized, and reviewed every 30 days.
== END 2023-08-15 11:05 | disposition home or self-care (01) ==
LOC: OT 11:00
PROVIDERS: Visit Provider Orthopaedic Surgery
DX: M25.512 Pain in left shoulder (principal); M75.102 Unspecified rotator cuff tear or rupture of left shoulder, not specified as traumatic
CPT/HCPCS: 97010; 97014; 97110; 97140; 97164; 97166; G0283

== ENCOUNTER 2023-08-24 10:36 | Outpatient (POV) | payer MEDICARE, SELFPAY ==
[2023-08-24 10:50] VITALS: BP 173/68; PULSE 95; RESP 16; O2SAT 97; BMI 33.8
--- NOTE | 2023-08-24 11:10 | EXP.PAIN.SOA ---
[facility] Pain Management SOAP Note Subjective:: Patient is a pleasant 82-year-old female who presents today for follow-up of intrathecal pain pump trial on 08/12/2023. Today she rates her pain a 8 out of 10. Patient denies any new trauma or injury. Patient states that she has approximately 12 hours of relief and rates it at 100% improvement. Patient states that she felt like she did have improved overall function with decreased pain and felt like she would have better quality of life. She states that this even helped her torn rotator cuff pain. She states that she did talk to Dr. Amado regarding this and he was very much on board with proceeding forward with this as an option for her. Patient is currently managed with tramadol 50 mg twice a day. Patient states that this is helping however she is having a lot more pain and is requesting if we can increase it a little. Her Doni has been reviewed and is appropriate. Review of Systems: General: No recent weight changes, no fever, no sleep disturbances Respiratory: No cough, no shortness of air, no recurring pulmonary infections Cardiovascular/peripheral vascular: No chest pain, no palpitations, no edema, no shortness of breath Gastrointestinal: No new onset incontinence, normal bowel movements reported Genitourinary: No new onset incontinence Musculoskeletal: Low back pain, shoulder pain Psychiatric: [Normal mood/affect] Neurological: [Denies weakness in extremities], [denies balance issues] Objective:: Physical Exam: General: Alert and oriented x3, no acute distress, pleasant and cooperative Lungs: Respirations even and unlabored, symmetrical chest expansion Eyes: PERRL Musculoskeletal: Flexion and extension of lumbar [spine] somewhat guarded secondary to pain, [antalgic gait noted] Neurological: Speech clear, no gross sensory deficit Assessment:: Degenerative disc disease of lumbar spine with lumbar radiculopathy symptoms, lumbar postlaminectomy syndrome, lumbar spondylosis, chronic pain syndrome, left shoulder pain Plan:: Patient did have a successful intrathecal pain pump trial with 100% relief lasting 12 hours. Patient did undergo a intrathecal pump trial with significant improvement in the patient would like to proceed forward with the intrathecal implant. Risk and benefits have been discussed and they still wish to continue with this plan of care. Patient does have a signed agreement that if we proceed forward with the intrathecal pump that there will be a decrease in oral pain medications if this is applicable with the overall goal 2-no oral opioids once the intrathecal pain pump is established. Prior to the intrathecal trial patient was on a fixed schedule with her medications and patient has been compliant with her medication regimen. We will submit for the intrathecal pain pump implant. Patient is agreeable that when we implanted this device we will come off the tramadol completely. I will refill her tramadol 50 mg and change it 3 times a day and provide a 1 month supply of this medication. Patient has tried and failed conservative therapies including prior back surgery, oral medication, heat and ice, topicals, physical therapy and at home exercises and stretching. Patient has been instructed to contact the clinic with any concerns before the next appointment. Dr. Helms has reviewed this note and agrees with this plan of care. This note was dictated using voice recognition software and make contain errors or omissions. [facility] Disclaimer: The information contained in this section may have been updated after the patient was seen, as this information can be updated by other users. Medical History Abdominal pain Acute respiratory failure with hypoxia Anemia Asthma Asthma Atelectasis Atrophic vaginitis Back pain Benign paroxysmal vertigo Body aches Bradycardia CAD (coronary artery disease) CAD in [place] artery Chronic low back pain Chronic neck pain Chronic UTI CKD (chronic kidney disease) stage 3, GFR 30-59 ml/min Constipation Coronary artery disease Cough DDD (degenerative disc disease) Diastolic heart failure Dilatation of bladder Diverticulosis Dizziness Attributes symptoms to her allergies and declines further evaluation, treatment Dyspnea Dyspnea on exertion Excessive cerumen in both ear canals Fall Fatigue Functional abdominal pain syndrome Gallstones Generalized weakness GERD (gastroesophageal reflux disease) Heart disease History of asthma History of asthma History of sleep apnea History of sleep apnea History of smoking 30 or more pack years History of stent insertion of renal artery Left HLD (hyperlipidemia) HTN (hypertension) Hypertensive urgency Hyponatremia Hypothyroid Hypoxemia Injury of left hip Insomnia Internal carotid artery stenosis Noncritical plaque of the internal carotid arteries of the anterior circulation with symptomatic side less than nonsymptomatic side. No correlation to dizziness, left-sided weakness. Posterior circulation or distal vertebrobasilar arteries unremarkable appearance without evidence of significant stenosis or occlusion. Numerous risk factors otherwise placing her at risk for CVA. Prefers best medical therapy and risk factor reduction. Declines a referral to Dr. 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 States she weighed 185 at home yesterday, 07/13/2023. Obstruction of celiac artery Osteoporosis right FA Overactive bladder Persistent dry cough Pleural effusion, bilateral Pneumonia Pulmonary hypertension Renal artery stenosis Left Renal failure stage 3 Renal failure Renal insufficiency Right-sided congestive heart failure Severe sleep apnea History of moderate ZACH, now severe, AHI 55, associated with significant hypoxemia. Decent CPAP compliance, AHI 5.4, some intolerance with hypoxemia. Did not tolerate CPAP titration, BiPAP recommended. Spinal stenosis of lumbar region Tubular adenoma of colon Urge incontinence UTI (urinary tract infection) UTI (urinary tract infection) UTI due to Klebsiella species Vaginal yeast infection Vitamin D deficiency Surgical History H/O breast biopsy H/O gastric bypass H/O heart artery stent H/O: hysterectomy History of biopsy of bladder History of dilation and curettage History of renal stent Hx of cataract removal with insertion of prosthetic lens Hx of cholecystectomy Hx of colonoscopy 05/05/2021 Previous back surgery L4/5-decompression - 12/2021 Dr. Cem Amado at [facility] S/P cardiac catheterization 1999 Status post rotator cuff surgery right Family History Father Coronary artery disease Hyperlipidemia Hypertension Stroke Mother Coronary artery disease Heart attack Hyperlipidemia Hypertension Brother Cancer hepatic Coronary artery disease Diabetes Heart attack Hyperlipidemia Hypertension Stroke Sister Cancer ovarian Hyperlipidemia Hypertension Diabetes Son Coronary artery disease Heart attack Daughter Hyperlipidemia Hypertension Social History Smoking Status: Never smoker years smoked: 30 second hand exposure: No alcohol intake: never substance use type: denies use current occupational status: other Travel in the last 8 weeks: None household members: none housing: house current occupational exposures/hazards: No caffeine: Yes
== END 2023-08-24 23:59 | disposition home or self-care (01) ==
PROVIDERS: PCP Nurse Practitioner Family; Visit Provider Nurse Practitioner Family
DX: M51.36 Other intervertebral disc degeneration, lumbar region (principal)
CPT/HCPCS: 99212; G0463

== ENCOUNTER 2023-08-24 17:00 | Outpatient (CLI) | payer MEDICARE, SELFPAY | END 2023-08-24 23:59 | disposition home or self-care (01) | LOC: LAB.DROPOF 17:01 | PROVIDERS: PCP Nurse Practitioner Family; Visit Provider Nurse Practitioner Family | DX: R30.0 Dysuria (principal); B96.89 Other specified bacterial agents as the cause of diseases classified elsewhere | CPT/HCPCS: 87086 ==

== ENCOUNTER 2023-09-02 18:44 | Inpatient (IN) | payer MEDICARE, SELFPAY ==
[2023-09-02 18:45] VITALS: BP 171/81; PULSE 75; RESP 23; TEMP 36.4; O2SAT 98; BMI 34.2
--- NOTE | 2023-09-02 19:01 | CT_ITS ---
PROCEDURE INFORMATION: Exam: CTA Abdomen and Pelvis With Contrast Exam date and time: 09/02/2023 8:49 PM Age: 82 years old Clinical indication: Abdominal pain; Generalized; Additional info: Concern for mesenteric ischemia TECHNIQUE: Imaging protocol: Computed tomographic angiography of the abdomen and pelvis with contrast. Exam focused on the arteries. 3D rendering (Not supervised by radiologist): MIP and/or 3D reconstructed images were created by the technologist. Radiation optimization: All CT scans at this facility use at least one of these dose optimization techniques: automated exposure control; mA and/or kV adjustment per patient size (includes targeted exams where dose is matched to clinical indication); or iterative reconstruction. Contrast material: ISOUVE 370; Contrast volume: 100 ml; Contrast route: INTRAVENOUS (IV); COMPARISON: 1. CT ANGIO ABDOMEN PELVIS 02/10/2021 9:[address] ANGIO ABDOMEN 09/25/2019 11:[address] ABDOMEN PELVIS WO CON 06/14/2023 11:02 AM FINDINGS: Lungs: Scattered areas of bronchial wall thickening which are likely chronic inflammatory. A few areas of subpleural reticulation are noted, nonspecific. Aorta: There is atherosclerotic disease of the visualized aorta and its major branch vessels. Celiac trunk and mesenteric arteries: No occlusion or significant stenosis. Renal arteries: No occlusion or significant stenosis. Right iliac arteries: No occlusion or significant stenosis. Left iliac arteries: No occlusion or significant stenosis. Liver: No mass. Gallbladder and bile ducts: The patient is status post cholecystectomy. Pancreas: There is peripancreatic concerning for acute pancreatitis. Spleen: There is a small splenule. Adrenal glands: Unremarkable. No mass. Kidneys and ureters: Unremarkable. No solid mass. No hydronephrosis. Stomach and bowel: There are scattered colonic diverticula without evidence for active diverticulitis. Appendix: No evidence of appendicitis. Intraperitoneal space: Unremarkable. No free air. No significant fluid collection. Lymph nodes: Unremarkable. No enlarged lymph nodes. Urinary bladder: Unremarkable. No mass. Reproductive: Unremarkable as visualized. Bones/joints: There is diffuse degenerative disease of the visualized osseous structures. Soft tissues: There are postsurgical changes of the ventral abdominal wall. IMPRESSION: 1. There is peripancreatic concerning for acute pancreatitis. Please correlate with lipase level. 2. Widely patent mesenteric vasculature without evidence for bowel ischemia.
--- NOTE | 2023-09-02 19:18 | HMH.EDGENADL ---
Discharge Plan Disposition Patient Disposition: Admitted Chief Complaint: Abdominal Pain Clinical Impressions Clinical Impression: Acute pancreatitis Discharge ED Provider: Doug Robin General Adult HPI General Chief complaint: Abdominal Pain Stated complaint: abd pain Time Seen by Provider: 09/02/23 18:48 History of Present Illness HPI narrative: Please note that above description of symptoms, in this electronic medical record under categorization of recalled from ER triage doctor by RN are reflective of an initial nursing assessment, however, is not reflective of my full history and physical exam that was personally taken and clarified. Consequentially, this preceding description of symptoms, which may include the patient's categorized chief complaint in the EMR, do not reflect my personal clinical impression, and the ultimate description of history of present illness and patient stated complaints should be deferred to this section of the note. Unless stated otherwise or congruent with this section of the note, additional signs, symptoms, or incongruence should be interpreted as inaccurate with my clinical impression. Related Data Home Medications Medication Instructions Recorded Confirmed aspirin 81 mg tablet,delayed 81 mg PO DAILY [facility]ALTH 08/16/17 08/24/23 release (Adult Low Dose Aspirin) nitroglycerin 0.4 mg sublingual 0.4 mg sublingual Q5MINP PRN chest 10/18/22 08/24/23 tablet pain nebulizers (Aeroneb Go Nebulizer) 11/04/22 08/24/23 baclofen 2 % cream in metered-dose 1 ea topical DIRECTED PRN Pain 12/27/22 08/24/23 applicator gabapentin 10 % cream in 1 ea topical DIRECTED Pain 12/27/22 08/24/23 metered-dose applicator ketamine 5 % cream in metered-dose 1 ea topical DIRECTED N/A 12/27/22 08/24/23 applicator oxygen-air delivery systems 12/27/22 08/24/23 conjugated estrogens 0.625 mg/gram 0.625 mg vaginal DAILY PRN 07/14/23 08/24/23 vaginal cream (Premarin) supplement Previous Rx's Medication Instructions Recorded albuterol sulfate 90 mcg/actuation 2 puff inhalation Q4HP PRN 11/25/22 aerosol inhaler shortness of breath or wheezing #8.5 grams atorvastatin 40 mg tablet 40 mg PO DAILY Cholesterol #90 tabs 11/25/22 clopidogrel 75 mg tablet 75 mg PO DAILY Blood Thinner #90 11/25/22 tabs ipratropium 0.5 mg-albuterol 3 mg 3 ml inhalation Q6RT PRN Shortness 11/25/22 (2.5 mg base)/3 mL nebulization Of Breath Or Wheezing #90 ea soln levothyroxine 75 mcg tablet 75 mcg PO DAILY THYROID #90 tabs 11/25/22 (Synthroid) losartan 50 mg tablet 50 mg PO DAILY Hypertension #90 11/25/22 tabs pantoprazole 40 mg tablet,delayed 40 mg PO DAILY Acid reflux #90 tabs 11/25/22 release spironolactone 25 mg tablet 25 mg PO BID Fluid #180 tabs 11/25/22 trazodone 50 mg tablet 100 mg (2 x 50 mg) PO HS sleep 11/25/22 #180 tabs ursodiol 300 mg capsule 600 mg (2 x 300 mg) PO DAILY 11/25/22 gallstone prevention #180 caps azelastine 137 mcg (0.1 %) nasal 2 spray intranasal HS 90 days #30 07/21/23 spray aerosol mL mometasone-formoterol HFA 100 2 puff inhalation BID 90 days #13 08/05/23 mcg-5 mcg/actuation aerosol grams inhaler (Dulera) fenofibrate micronized 67 mg 67 mg PO DAILY Cholesterol #90 caps 08/06/23 capsule estradiol 0.01% (0.1 mg/gram) See Rx Instructions vaginal 08/08/23 vaginal cream .COMPLEX #42.5 grams tetracycline 500 mg capsule 500 mg PO Q12H 7 days #14 caps 08/24/23 tramadol 50 mg tablet 50 mg PO TID Pain #90 tabs 08/24/23 Allergies Allergy/AdvReac Type Severity Reaction Status Date / Time lisinopril Allergy Intermediate cough Verified 08/24/23 09:53 atenolol [ATENOLOL] Allergy Unknown ASTHMA Verified 08/24/23 09:53 ATTACK ciprofloxacin [From CIPRO] Allergy Unknown SWELLING/RA Verified 08/24/23 09:53 SH codeine [CODEINE] Allergy Unknown I-RASH Verified 08/24/23 09:53 cortisone [CORTISONE] Allergy Unknown I-HIVES/SOB Verified 08/24/23 09:53 erythromycin base Allergy Unknown I-RASH Verified 08/24/23 09:53 [ERYTHROMYCIN BASE] hydrocodone [From LORTAB] Allergy Unknown NA-NAUSEA Verified 08/24/23 09:53 latex [LATEX] Allergy Unknown I-HIVES Verified 08/24/23 09:53 loratadine [LORATADINE] Allergy Unknown SWELLING Verified 08/24/23 09:53 metronidazole [From FLAGYL] Allergy Unknown NA-DIZZINES Verified 08/24/23 09:53 S minocycline [From MINOCIN] Allergy Unknown I-RASH Verified 08/24/23 09:53 Penicillins [PENICILLINS] Allergy Unknown I-RASH Verified 08/24/23 09:53 Sulfa (Sulfonamide Allergy Unknown I-RASH Verified 08/24/23 09:53 Antibiotics) [SULFA (SULFONAMIDE ANTIBIOTICS)] carvedilol Allergy Difficulty Verified 08/24/23 09:53 Breathing metoprolol Allergy Difficulty Verified 08/24/23 09:53 Breathing fluticasone AdvReac Fever Verified 08/24/23 09:53 [From Advair Diskus] levofloxacin AdvReac Unknown Verified 08/24/23 09:53 allergy reaction salmeterol AdvReac Fever Verified 08/24/23 09:53 [From Advair Diskus] [facility] Disclaimer: The information contained in this section may have been updated after the patient was seen, as this information can be updated by other users. Medical History Abdominal pain Acute respiratory failure with hypoxia Anemia Asthma Asthma Atelectasis Atrophic vaginitis Back pain Benign paroxysmal vertigo Body aches Bradycardia CAD (coronary artery disease) CAD in [place] artery Chronic low back pain Chronic neck pain Chronic UTI CKD (chronic kidney disease) stage 3, GFR 30-59 ml/min Constipation Coronary artery disease Cough DDD (degenerative disc disease) Diastolic heart failure Dilatation of bladder Diverticulosis Dizziness Attributes symptoms to her allergies and declines further evaluation, treatment Dyspnea Dyspnea on exertion Excessive cerumen in both ear canals Fall Fatigue Functional abdominal pain syndrome Gallstones Generalized weakness GERD (gastroesophageal reflux disease) Heart disease History of asthma History of asthma History of sleep apnea History of sleep apnea History of smoking 30 or more pack years History of stent insertion of renal artery Left HLD (hyperlipidemia) HTN (hypertension) Hypertensive urgency Hyponatremia Hypothyroid Hypoxemia Injury of left hip Insomnia Internal carotid artery stenosis Noncritical plaque of the internal carotid arteries of the anterior circulation with symptomatic side less than nonsymptomatic side. No correlation to dizziness, left-sided weakness. Posterior circulation or distal vertebrobasilar arteries unremarkable appearance without evidence of significant stenosis or occlusion. Numerous risk factors otherwise placing her at risk for CVA. Prefers best medical therapy and risk factor reduction. Declines a referral to Dr. 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 States she weighed 185 at home yesterday, 07/13/2023. Obstruction of celiac artery Osteoporosis right FA Overactive bladder Persistent dry cough Pleural effusion, bilateral Pneumonia Pulmonary hypertension Renal artery stenosis Left Renal failure stage 3 Renal failure Renal insufficiency Right-sided congestive heart failure Severe sleep apnea History of moderate ZACH, now severe, AHI 55, associated with significant hypoxemia. Decent CPAP compliance, AHI 5.4, some intolerance with hypoxemia. Did not tolerate CPAP titration, BiPAP recommended. Spinal stenosis of lumbar region Tubular adenoma of colon Urge incontinence UTI (urinary tract infection) UTI (urinary tract infection) UTI due to Klebsiella species Vaginal yeast infection Vitamin D deficiency Surgical History H/O breast biopsy H/O gastric bypass H/O heart artery stent H/O: hysterectomy History of biopsy of bladder History of dilation and curettage History of renal stent Hx of cataract removal with insertion of prosthetic lens Hx of cholecystectomy Hx of colonoscopy 05/05/2021 Previous back surgery L4/5-decompression - 12/2021 Dr. Cem Amado at [facility] S/P cardiac catheterization 1999 Status post rotator cuff surgery right Family History Father Coronary artery disease Hyperlipidemia Hypertension Stroke Mother Coronary artery disease Heart attack Hyperlipidemia Hypertension Brother Cancer hepatic Coronary artery disease Diabetes Heart attack Hyperlipidemia Hypertension Stroke Sister Cancer ovarian Hyperlipidemia Hypertension Diabetes Son Coronary artery disease Heart attack Daughter Hyperlipidemia Hypertension Social History Smoking Status: Never smoker years smoked: 30 second hand exposure: No alcohol intake: never substance use type: denies use current occupational status: other Travel in the last 8 weeks: None household members: none housing: house current occupational exposures/hazards: No caffeine: Yes ROS Obtained: Yes All systems reviewed & no additional complaints except as documented Physical Exam General General appearance: alert and in no apparent distress Head Head exam: atraumatic and normocephalic Eye Eye exam: Present normal appearance, PERRL and EOMI ENT ENT exam: Present mucous membranes moist Neck Neck exam: Present normal inspection, full ROM and trachea midline Respiratory Respiratory exam: Absent respiratory distress, wheezes, stridor, accessory muscle use or prolonged expiratory phase Cardiovascular Cardiovascular exam: Present normal rhythm Abdominal Exam Abdominal exam: Present soft and tenderness; Absent distention, guarding, rebound or rigidity Abdominal tenderness: Present diffuse and moderate Extremities Exam Extremities exam: Absent edema Neurological Exam Neurological exam: Present alert, oriented X3, CN II-XII intact and normal gait; Absent motor sensory deficit Skin Skin exam: Present warm and dry; Absent diaphoresis or erythema Medical Decision Making Medical Records Medical records reviewed: Yes I reviewed the patient's medical records. Doni Inquiry Pt receiving controlled substance: No Doni was queried for this patient: No Vital Signs: 09/02/23 18:45 Temperature 97.6 F Temperature Source Oral Pulse Rate [Right] 75 Respiratory Rate 23 Blood Pressure [Right Arm] 171/81 H Blood Pressure Mean [Right Arm] 111 Blood Pressure Source [Right Arm] Automatic Cuff 02 Sat by Pulse Oximetry 98 Oxygen Delivery Method Room Air Lab Data Lab Results 09/02/23 18:45: Urine Color Yellow, Urine Appearance Clear, Urine pH 5.5, Ur Specific [place] 1.020, Urine Protein Negative, Urine Glucose (UA) Negative, Urine Ketones Negative, Urine Blood 1+, Urine Nitrate Negative, Urine Bilirubin Negative, Urine Urobilinogen 0.2, Ur Leukocyte Esterase Negative, Urine RBC Occasional, Urine WBC 3-5, Ur Squamous Epith Cells Occasional, Urine Bacteria Trace 09/02/23 19:20: WBC 11.8 H, RBC 4.19 L, Hgb 12.6, Hct 40.0, MCV 95.4, MCH 30.0, MCHC 31.5 L, RDW 14.4, Plt Count 376, MPV 8.9, Neut % (Auto) 66.3, Lymph % (Auto) 24.8, [place] % (Auto) 8.1, Eos % (Auto) 0.3, Baso % (Auto) 0.6, Neut # (Auto) 7.8, Lymph # (Auto) 2.9, [place] # (Auto) 1.0, Eos # (Auto) 0.0, Baso # (Auto) 0.1, Sodium 128 L, Potassium 5.7 H, Chloride 100, Carbon Dioxide 20 L, Anion Gap 13.7, BUN 67 H, Creatinine 1.90 H, Estimated Creat Clear 29, Estimated GFR 25 L, Est GFR ( Amer) 31 L, Glucose 119 H, Calcium 10.2, Total Bilirubin 0.8, AST 38 H, ALT 24, Alkaline Phosphatase 90, Total Protein 6.1 L, Albumin 3.8, Globulin 2.3, Albumin/Globulin Ratio 1.7, Lipase 2845 H 09/02/23 19:37: Lactate 1.1 09/02/23 19:20 09/02/23 19:20 Orders (Tests/Meds): ED MEDICATIONS Generic Name Dose Route Start Last Admin Trade Name Freq PRN Reason Stop Dose Admin Acetaminophen 650 mg 09/02/23 22:00 Acetaminophen 325mg Tab PO 10/02/23 21:59 Q4HP PRN Fever or Mild Pain (1-3) Sodium Chloride 1,000 mls @ 50 mls/hr 09/02/23 22:00 Sod Chlor 0.9% 1000ml Bag IV 10/02/23 21:59 .Q20H CHARLI Morphine Sulfate 2 mg 09/02/23 22:00 Morphine 2mg/Ml Syringe IV 10/02/23 21:59 Q2HP PRN Severe Pain (7-10) Ondansetron HCl 4 mg 09/02/23 22:00 Ondansetron 4mg/2ml Vial IV 10/02/23 21:59 Q8HP PRN Nausea Pantoprazole Sodium 40 mg 09/03/23 09:00 Pantoprazole 40mg Tablet PO 10/03/23 08:59 DAILY CHARLI Sodium Chloride 10 ml 09/02/23 21:09 09/02/23 21:11 Sodium Chloride 0.9% 10ml Syr (Rad Only) IV 10/02/23 21:08 10 ml NEEDED PRN Administration Maintain IV Site Discontinued Medications Generic Name Dose Route Start Last Admin Trade Name Freq PRN Reason Stop Dose Admin Acetaminophen 1,000 mg 09/02/23 19:02 09/02/23 19:27 Acetaminophen 1,000mg/100ml Vial IV 09/02/23 19:03 1,000 mg ONCE ONE Administration Lactated Ringer's 1,000 mls @ 999 mls/hr 09/02/23 20:19 09/02/23 20:23 Lactated Ringer's 1000 Ml Bag IV 09/02/23 21:19 999 mls/hr .Q1H1M ONE Administration Iopamidol 100 ml 09/02/23 21:09 09/02/23 21:10 Iopamidol-370 (76%);100ml Bottle IV 09/02/23 21:10 100 ml ONCE ONE Administration Ketorolac Tromethamine 15 mg 09/02/23 19:02 09/02/23 19:29 Ketorolac 30mg/Ml Vial IV 09/02/23 19:03 15 mg ONCE ONE Administration Morphine Sulfate 4 mg 09/02/23 19:02 09/02/23 19:29 Morphine 4mg/Ml Syringe IV 09/02/23 19:03 4 mg ONCE ONE Administration Ondansetron HCl 4 mg 09/02/23 19:03 09/02/23 19:29 Ondansetron 4mg/2ml Vial IV 09/02/23 19:04 4 mg ONCE ONE Administration Sodium Chloride 50 ml 09/02/23 21:09 09/02/23 21:11 0.9 % Sodium Chloride 50 Ml Vial IV 09/02/23 21:10 50 ml ONCE ONE Administration ORDERS Category Date Time Status CT angio abdomen pelvis Stat Cat Scan 09/02/23 19:01 Completed Surgery Consult (on-call) [Consult to On-Call Gen'l Cons 09/02/23 22:00 Ordered Surgeon] [CONS] Routine CBC w/Auto Diff [Complete Blood Count Auto Diff] Stat Lab 09/02/23 19:20 Completed CMP [Comprehensive Metabolic Panel] Stat Lab 09/02/23 19:20 Completed Complete Blood Count Auto Diff AMLAB Lab 09/03/23 06:00 Ordered Comprehensive Metabolic Panel AMLAB Lab 09/03/23 06:00 Ordered Lactic Acid Stat Lab 09/02/23 19:37 Completed Lipase Stat Lab 09/02/23 19:20 Completed Magnesium AMLAB Lab 09/03/23 06:00 Ordered UA [Urinalysis and Microscopic] Stat Lab 09/02/23 18:45 Completed Medical Decision Narrative: 82-year-old female history of hypertension, hyperlipidemia, CAD status post stenting, renal artery stenosis status post stenting, CKD, hysterectomy, cholecystectomy, gastric bypass presenting with abdominal pain. Patient states that she has had severe, acute abdominal pain since yesterday on 08/31. Nothing particular makes it better or worse. Seems to be getting progressively worse. Now moderate to severe, diffuse, cramping. Not associated with nausea or vomiting, diarrhea or constipation. Patient states that she is still passing gas, last bowel movement was yesterday and normal for her. 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 Currently on aspirin and Plavix. Patient states that she is having food aversions and weight loss. history was obtained via conversation with patient and daughter. On arrival, patient hemodynamically stable, alert, oriented x4, appropriate, GCS 15, moving all extremities spontaneously, pupils equal and reactive to light. Full physical exam performed and significant for uncomfortable appearing woman in no acute distress. Abdomen soft, but diffusely tender, nonperitoneal take. Appears to be on a proportion to exam. No flank tenderness. No overlying skin changes. Patient hypertensive, nontachycardic and nontoxic-appearing. Also his record symmetric in lower extremities. Differential includes PUD, gastritis, enteritis, gastroenteritis, pancreatitis, SBO, colitis, diverticulitis, nephrolithiasis, UTI, torsion, hepatitis, aortic pathology, mesenteric ischemia among others. Patient was given Toradol, acetaminophen, morphine, Zofran for symptomatic management and correction of underlying abnormalities. Workup independently interpreted and significant for leukocytosis 11.8 without neutrophilia. Chemistry with mild hyponatremia, hyperkalemia, KACY creatinine 1.9 and BUN 67. Patient was given fluids for this. Lipase elevated at almost 3000. Urinalysis unconcerning. CTA of the abdomen and pelvis without acute mesenteric. Pancreatic fat stranding concerning for pancreatitis. See radiology read for full review of final results. On reevaluation, patient feeling much better. Because patient's pain largely uncontrolled without morphine, unable to tolerate p.o. intake and food aversions, concern for worsening with home-going, hospitalist was contacted for evaluation for admission. Because patient high risk for clinical decompensation, deemed appropriate for inpatient admission. Results were relayed to patient who voiced understanding and patient was agreeable to inpatient admission and management. Patient was admitted to the hospital for further definitive management. Critical Care Critical Care Time Critical Care Time: No
[2023-09-02 19:27] LABS: Microscopic, Urine URINE MICROSCOPIC (MICROSCOPIC)
[2023-09-02] MEDS: ACETAMINOPHEN 1,000MG/100ML VIAL 1000 MG IV (19:27)
[2023-09-02 19:29] LABS: Basophils # 0.1 K/mm3 (0-0.2); Basophils % 0.6 % (0.1-2.0); Eosinophils % 0.3 % (0.1-12.0); Hemoglobin 12.6 g/dL (12.2-16.2); Lymphocytes # 2.9 K/mm3 (0.7-4.5); Lymphocytes % 24.8 % (10-50); Mean Corpuscular HGB Conc 31.5 g/dL (31.8-35.4); Mean Corpuscular Volume 95.4 fl (81-99); Mean Platelet Volume 8.9 fl (7.4-10.4); Monocytes % 8.1 % (1.7-9.3); Neutrophils # 7.8 K/mm3 (1.8-7.8); Neutrophils % 66.3 % (37.0-80.0); Platelet Count 376 K/mm3 (142-424); Red Blood Count 4.19 M/mm3 (4.20-5.40); Red Cell Distribution Width 14.4 % (11.5-17.5); White Blood Count 11.8 K/mm3 (4.8-10.8)
[2023-09-02] MEDS: KETOROLAC 30MG/ML VIAL 15 MG IV (19:29)
[2023-09-02] MEDS: ONDANSETRON 4MG/2ML VIAL 4 MG IV (19:29)
[2023-09-02] MEDS: MORPHINE 4MG/ML SYRINGE 4 MG IV (19:29)
[2023-09-02 19:31] LABS: Appearance,Urine CLEAR (Clear); Bilirubin,Urine Negative (Negative); Blood, Urine 1+ (Negative); Color,Urine YELLOW (Yellow); Glucose,Urine (UA) Negative (Negative); Ketones,Urine Negative (Negative); Leukocyte Esterase,Urine Negative (Negative); Nitrate,Urine Negative (Negative); PH,Urine 5.5 (5.0-8.5); Protein,Urine Negative (Negative); Urobilinogen,Urine 0.2 EU/dl (0.2)
[2023-09-02 19:49] LABS: Bacteria,Urine Trace /lpf; RBC,Urine Occasional #/hpf (0-3); Squamous Epithelial Cell,Urine Occasional #/hpf (0-5)
[2023-09-02 19:59] LABS: Chloride 100 mmol/L (98-107); Sodium 128 mmol/L (136-145)
[2023-09-02 20:00] LABS: Potassium 5.7 mmoL/L (3.5-5.1)
[2023-09-02 20:00] LABS: Lactic Acid 1.1 mmol/L (0.7-2.1)
[2023-09-02 20:02] LABS: Alanine Aminotransferase 24 U/L (12-78); Alkaline Phosphatase 90 U/L (38-126); Anion Gap 13.7 mEq/L (5-15); Aspartate Amino Transferase 38 U/L (14-36); Bilirubin,Total 0.8 mg/dl (0.2-1.3); Blood Urea Nitrogen 67 mg/dl (7-17); Carbon Dioxide 20 mmol/L (22.0-30.0); Creatinine Clearance Estimated 29 mL/min (50-200); Estimated Glomerular Filt Rate 25 ml/min (>60); GFR (African American) 31 ML/MIN (>60)
[2023-09-02 20:03] LABS: Albumin Level 3.8 g/dl (3.5-5.0); Albumin/Globulin Ratio 1.7 (1.1-1.8); Calcium 10.2 mg/dl (8.4-10.2); Globulin 2.3 g/dL (1.3-3.2); Glucose 119 mg/dl (74-100); Total Protein,Serum 6.1 g/dl (6.3-8.2)
[2023-09-02 20:18] LABS: Lipase 2845 U/L (23-300)
[2023-09-02] MEDS: LACTATED RINGERS 1000ML 1,000 ML 999 ML IV (20:23)
[2023-09-02] MEDS: IOPAMIDOL-370 (76%);100ML BOTTLE 100 ML IV (21:10)
[2023-09-02] MEDS: SODIUM CHLORIDE 0.9% 10ML SYR (RAD ONLY) 10 ML IV (21:11)
[2023-09-02] MEDS: 0.9 % SODIUM CHLORIDE 50 ML VIAL IV (21:11)
--- NOTE | 2023-09-02 22:04 | P.HP_ITS ---
History of Present Illness *Admission Date: 09/02/23 *Reason for visit:: abd pain *History of present illness: This is a 82-year-old female PMHx of hypertension, hyperlipidemia, CAD status post stenting, renal artery stenosis status post stenting, CKD, hysterectomy, cholecystectomy, gastric bypass presenting with abdominal pain. Patient states that she has had severe, acute abdominal pain since yesterday on 08/31. Nothing tried at home improved, and patient are not tolerating drinking or eating anything. Now moderate to severe, diffuse, cramping. Not associated with nausea or vomiting, diarrhea or constipation. Patient states that she is still passing gas, last bowel movement was yesterday and normal for her. 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 Admitted for continuous monitoring and further management. [facility] Disclaimer: The information contained in this section may have been updated after the patient was seen, as this information can be updated by other users. 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 Functional abdominal pain syndrome Chronic low back pain Chronic neck pain Internal carotid artery stenosis Severe sleep apnea Neck pain Obesity CAD in [place] artery Pulmonary hypertension History of sleep apnea Nocturnal hypoxia Dyspnea on exertion History of smoking 30 or more pack years Asthma Dizziness Left-sided weakness History of stent insertion of renal artery Renal artery stenosis Diastolic heart failure Right-sided congestive heart failure History of sleep apnea History of asthma Pleural effusion, bilateral Pneumonia Acute respiratory failure with hypoxia CKD (chronic kidney disease) stage 3, GFR 30-59 ml/min Hypoxemia Bradycardia Spinal stenosis of lumbar region Dyspnea Cough UTI (urinary tract infection) Vaginal yeast infection Hypertensive urgency Chronic UTI Insomnia HLD (hyperlipidemia) Vitamin D deficiency Overactive bladder Excessive cerumen in both ear canals Persistent dry cough Asthma Osteoporosis Interstitial cystitis Renal failure Diverticulosis GERD (gastroesophageal reflux disease) Heart disease History of asthma Dilatation of bladder DDD (degenerative disc disease) Back pain Gallstones UTI (urinary tract infection) Left lower lobe pneumonia Atelectasis Renal insufficiency Anemia CAD (coronary artery disease) Benign paroxysmal vertigo Surgical History H/O gastric bypass History of renal stent H/O: hysterectomy Hx of cataract removal with insertion of prosthetic lens Hx of colonoscopy Status post rotator cuff surgery H/O heart artery stent S/P cardiac catheterization History of biopsy of bladder H/O breast biopsy History of dilation and curettage Previous back surgery Hx of cholecystectomy Family History Father Coronary artery disease Hyperlipidemia Hypertension Stroke Mother Coronary artery disease Heart attack Hyperlipidemia Hypertension Brother Cancer hepatic Coronary artery disease Diabetes Heart attack Hyperlipidemia Hypertension Stroke Sister Cancer ovarian Hyperlipidemia Hypertension Diabetes Son Coronary artery disease Heart attack Daughter Hyperlipidemia Hypertension Social History Smoking Status: Never smoker years smoked: 30 second hand exposure: No alcohol intake: never substance use type: denies use current occupational status: other Travel in the last 8 weeks: None household members: none housing: house current occupational exposures/hazards: No caffeine: Yes Review of Systems Review of Systems Review of systems:: pertinent systems reviewed and negative unless documented below Meds Home Medications and Allergies Home Medications Medication Instructions Recorded Confirmed Type aspirin 81 mg tablet,delayed 81 mg PO DAILY 08/16/17 09/03/23 History release (Adult Low Dose Aspirin) nitroglycerin 0.4 mg sublingual 0.4 mg sublingual Q5MINP PRN chest 10/18/22 09/03/23 History tablet pain nebulizers (Aeroneb Go Nebulizer) 11/04/22 09/03/23 History albuterol sulfate 90 mcg/actuation 2 puff inhalation Q4HP PRN 11/25/22 09/03/23 Rx aerosol inhaler shortness of breath or wheezing #8.5 grams baclofen 2 % cream in metered-dose 1 ea topical DIRECTED PRN Pain 12/27/22 09/03/23 History applicator gabapentin 10 % cream in 1 ea topical DIRECTED Pain 12/27/22 09/03/23 History metered-dose applicator ketamine 5 % cream in metered-dose 1 ea topical DIRECTED 12/27/22 09/03/23 History applicator oxygen-air delivery systems 12/27/22 09/03/23 History conjugated estrogens 0.625 mg/gram 0.625 mg vaginal DAILY 07/14/23 09/03/23 History vaginal cream (Premarin) azelastine 137 mcg (0.1 %) nasal 2 spray intranasal HS 90 days #30 07/21/23 09/03/23 Rx spray aerosol mL mometasone-formoterol HFA 100 2 puff inhalation BID 90 days #13 08/05/23 09/03/23 Rx mcg-5 mcg/actuation aerosol grams inhaler (Dulera) atorvastatin 40 mg tablet 40 mg PO DAILY 09/03/23 09/03/23 History clopidogrel 75 mg tablet 75 mg PO DAILY 09/03/23 09/03/23 History estradiol 0.01% (0.1 mg/gram) 1 applic vaginal DIRECTED 09/03/23 09/03/23 History vaginal cream fenofibrate micronized 67 mg 67 mg PO DAILY 09/03/23 09/03/23 History capsule levothyroxine 75 mcg tablet 75 mcg PO DAILY 09/03/23 09/03/23 History (Synthroid) losartan 50 mg tablet 50 mg PO DAILY 09/03/23 09/03/23 History pantoprazole 40 mg tablet,delayed 40 mg PO DAILY 09/03/23 09/03/23 History release spironolactone 25 mg tablet 25 mg PO BID 09/03/23 09/03/23 History tramadol 50 mg tablet 50 mg PO TID 09/03/23 09/03/23 History trazodone 50 mg tablet 100 mg PO HS 09/03/23 09/03/23 History ursodiol 300 mg capsule 600 mg PO DAILY 09/03/23 09/03/23 History New Prescriptions to Start Prescriptions: Allergies Allergy/AdvReac Type Severity Reaction Status Date / Time lisinopril Allergy Intermediate cough Verified 08/24/23 09:53 atenolol [ATENOLOL] Allergy Unknown ASTHMA Verified 08/24/23 09:53 ATTACK ciprofloxacin [From CIPRO] Allergy Unknown SWELLING/RA Verified 08/24/23 09:53 SH codeine [CODEINE] Allergy Unknown I-RASH Verified 08/24/23 09:53 cortisone [CORTISONE] Allergy Unknown I-HIVES/SOB Verified 08/24/23 09:53 erythromycin base Allergy Unknown I-RASH Verified 08/24/23 09:53 [ERYTHROMYCIN BASE] hydrocodone [From LORTAB] Allergy Unknown NA-NAUSEA Verified 08/24/23 09:53 latex [LATEX] Allergy Unknown I-HIVES Verified 08/24/23 09:53 loratadine [LORATADINE] Allergy Unknown SWELLING Verified 08/24/23 09:53 metronidazole [From FLAGYL] Allergy Unknown NA-DIZZINES Verified 08/24/23 09:53 S minocycline [From MINOCIN] Allergy Unknown I-RASH Verified 08/24/23 09:53 Penicillins [PENICILLINS] Allergy Unknown I-RASH Verified 08/24/23 09:53 Sulfa (Sulfonamide Allergy Unknown I-RASH Verified 08/24/23 09:53 Antibiotics) [SULFA (SULFONAMIDE ANTIBIOTICS)] carvedilol Allergy Difficulty Verified 08/24/23 09:53 Breathing metoprolol Allergy Difficulty Verified 08/24/23 09:53 Breathing fluticasone AdvReac Fever Verified 08/24/23 09:53 [From Advair Diskus] levofloxacin AdvReac Unknown Verified 08/24/23 09:53 allergy reaction salmeterol AdvReac Fever Verified 08/24/23 09:53 [From Advair Diskus] Exam Data for Last 24 hours Vital signs and Labs for Last 24 Hours: Temp Pulse Resp BP Pulse Ox O2 Del Method 97.6 F 75 23 171/81 H 98 Room Air 09/02/23 18:45 09/02/23 18:45 09/02/23 18:45 09/02/23 18:45 09/02/23 18:45 09/02/23 18:45 Laboratory Results - last 24 hr 09/02/23 18:45: Urine Color Yellow, Urine Appearance Clear, Urine pH 5.5, Ur Specific [place] 1.020, Urine Protein Negative, Urine Glucose (UA) Negative, Urine Ketones Negative, Urine Blood 1+, Urine Nitrate Negative, Urine Bilirubin Negative, Urine Urobilinogen 0.2, Ur Leukocyte Esterase Negative, Urine RBC Occasional, Urine WBC 3-5, Ur Squamous Epith Cells Occasional, Urine Bacteria Trace 09/02/23 19:20: WBC 11.8 H, RBC 4.19 L, Hgb 12.6, Hct 40.0, MCV 95.4, MCH 30.0, MCHC 31.5 L, RDW 14.4, Plt Count 376, MPV 8.9, Neut % (Auto) 66.3, Lymph % (Auto) 24.8, [place] % (Auto) 8.1, Eos % (Auto) 0.3, Baso % (Auto) 0.6, Neut # (Auto) 7.8, Lymph # (Auto) 2.9, [place] # (Auto) 1.0, Eos # (Auto) 0.0, Baso # (Auto) 0.1, Sodium 128 L, Potassium 5.7 H, Chloride 100, Carbon Dioxide 20 L, Anion Gap 13.7, BUN 67 H, Creatinine 1.90 H, Estimated Creat Clear 29, Estimated GFR 25 L, Est GFR ( Amer) 31 L, Glucose 119 H, Calcium 10.2, Total Bilirubin 0.8, AST 38 H, ALT 24, Alkaline Phosphatase 90, Total Protein 6.1 L, Albumin 3.8, Globulin 2.3, Albumin/Globulin Ratio 1.7, Lipase 2845 H 09/02/23 19:37: Lactate 1.1 Pulse Resp BP Pulse Ox O2 Del Method 82 16 126/47 L 97 Room Air 06/14/23 10:14 06/14/23 10:14 06/14/23 10:14 06/14/23 10:14 06/14/23 10:14 Laboratory Results - last 24 hr 06/14/23 10:30: WBC 9.6, RBC 4.25, Hgb 12.7, Hct 38.5, MCV 90.5, MCH 30.0, MCHC 33.1, RDW 15.3, Plt Count 275, MPV 9.2, Neut % (Auto) 55.2, Lymph % (Auto) 32.3, [place] % (Auto) 11.5 H, Eos % (Auto) 0.8, Baso % (Auto) 0.3, Neut # (Auto) 5.3, Lymph # (Auto) 3.1, [place] # (Auto) 1.1 H, Eos # (Auto) 0.1, Baso # (Auto) 0.0, Sodium 126 L, Potassium 4.3, Chloride 95 L, Carbon Dioxide 20 L, Anion Gap 15.3 H, BUN 46 H, Creatinine 3.40 H, Estimated Creat Clear 17, Estimated GFR 13 L*, Est GFR ( Amer) 16 L*, Glucose 108 H, Lactate 1.4, Calcium 9.3, Total Bilirubin 0.5, AST 30, ALT 20, Alkaline Phosphatase 88, Troponin I 0.02, Total Protein 7.1, Albumin 4.2, Globulin 2.9, Albumin/Globulin Ratio 1.4, Lipase 324 H 06/14/23 10:56: Urine Color Yellow, Urine Appearance Clear, Urine pH 5.5, Ur Specific [place] >= 1.030, Urine Protein Negative, Urine Glucose (UA) Negative, Urine Ketones Negative, Urine Blood Negative, Urine Nitrate Negative, Urine Bilirubin Negative, Urine Urobilinogen 0.2, Ur Leukocyte Esterase Trace, Urine RBC None, Urine WBC 3-5, Ur Squamous Epith Cells 5-10, Urine Bacteria Trace, Hyaline Casts Occasional, Urine Yeast 1+ 06/14/23 13:27: Sodium 123 L, Potassium 5.1, Chloride 97 L, Carbon Dioxide 19 L, Anion Gap 12.1, BUN 42 H, Creatinine 2.40 H D, Estimated Creat Clear 23, Estimated GFR 19 L*, Est GFR ( Amer) 23 L D, Glucose 97, Calcium 8.2 L, Troponin I 0.02 I & O for Last 24 hours: Intake & Output 08/30/23 08/31/23 09/01/23 09/02/23 23:59 23:59 23:59 23:59 Weight 79.379 kg Intake & Output 06/11/23 06/12/23 06/13/23 06/14/23 23:59 23:59 23:59 23:59 Weight 82.1 kg Constitutional Constitutional: no acute distress, morbidly obese, chronically ill appearing and cooperative *Routine HEENT Exam Head: Present normocephalic and atraumatic Eye: Present EOMI ENT: Present mucous membranes moist Comments: TTP in posterior occiput/trapezius *Routine Neck Exam Neck: Present supple; Absent full ROM Comments: TTP in trapezius Routine Chest/Breast/Axilla Exam Chest wall: Absent tenderness *Routine Respiratory Exam Respiratory: Present normal respiratory effort; Absent accessory muscle use, prolonged expiratory phase, rhonchi, wheezes or crackles *Routine Cardiovascular Exam Cardiovascular: Present RRR, Normal S1 and Normal S2 *Routine Abdominal Exam Abdominal: Present soft, normoactive bowel sounds, tenderness (minor and nonfocal) and guarding; Absent rebound *Routine Rectal Exam Rectal:: deferred *Routine Genitalia Exam Genitalia:: deferred *Routine Extremities Exam Extremities: Present full ROM and normal capillary refill; Absent edema *Routine Skin Exam Skin: Present intact and normal turgor *Routine Neurological Exam Neurological: Present alert, oriented X3 and moving all extremities; Absent altered mental status H&P: Result Imaging and Cardiology EKG: Status: image reviewed by me, Preliminary report and final report CT scan - abdomen: Status: image reviewed by me, Preliminary report and final report Assessment and Plan *Assessment and plan (1) Acute pancreatitis: Status: Acute Qualifiers: Acute pancreatitis complication: no infection or necrosis Pancreatitis type: unspecified pancreatitis type Qualified Code(s): K85.90 - Acute pancreatitis without necrosis or infection, unspecified Category: Medical Code(s): K85.90 - Acute pancreatitis without necrosis or infection, unspecified (2) Acute kidney injury superimposed on CKD: Status: Acute Category: Medical Code(s): N17.9 - Acute kidney failure, unspecified; N18.9 - Chronic kidney disease, unspecified (3) Coronary artery disease: Status: Acute Qualifiers: Associated angina: without angina Coronary Disease-Associated Artery/Lesion type: [place] artery [place] vs. transplanted heart: [place] heart Qualified Code(s): I25.10 - Atherosclerotic heart disease of [place] coronary artery without angina pectoris Category: Medical Code(s): I25.10 - Atherosclerotic heart disease of [place] coronary artery without angina pectoris (4) HTN (hypertension): Status: Acute Qualifiers: Hypertension type: unspecified Qualified Code(s): I10 - Essential (primary) hypertension Category: Medical Code(s): I10 - Essential (primary) hypertension (5) Hypothyroid: Status: Acute Qualifiers: Hypothyroidism type: unspecified Qualified Code(s): E03.9 - H ypothyroidism, unspecified Category: Medical Code(s): E03.9 - Hypothyroidism, unspecified Plan 82-year-old female PMHx of hypertension, hyperlipidemia, CAD status post stenting, renal artery stenosis status post stenting, CKD, hysterectomy, cholecystectomy, gastric bypass presenting with abdominal pain. on arrival patient hemodinamically stable. physical exam of abdomen tenderness on the epigastrium. Labs was obtained leukocytosis 11.8 without neutrophilia. Chemistry with mild hyponatremia, hyperkalemia, KACY creatinine 1.9 and BUN 67. Patient was given fluids for this. Lipase elevated at almost 3000. Urinalysis clear.. CTA of the abdomen and pelvis without acute mesenteric. Pancreatic fat stranding concerning for pancreatitis. Findings discussed with ED. Agreed for admission. Plan as follow: Acute pancreatitis: no Infection or necrosis suspected. will deferred use of abx for now Surgical consult. appreciated their insight NPO. pain management. patient previously tolerating morphine for pain zofran foir nauseas and vomiting cont IV hydration repeat daily labs monitor for sepsis and acute abdomen VS per unit protocols -KACY-on CKD: on IV NS for maintenance avoid nephrotoxic medication CAD, HT, HLD, Hypothyroid: resume home meds on synthroid plavix , aspirin and statin DNR
--- NOTE | 2023-09-02 22:24 | PC.NURSE ---
contacted house for bed assignment. pt to be admitted with dx: acute pancreatitis, admit to [facility].
--- NOTE | 2023-09-02 22:25 | PC.NURSE ---
OBSERVATION ADMISSION TO 214 WITH DX OF PANCREATITIS TO SERVICE OF THE HOSPITALIST.
[2023-09-02 22:35] VITALS: BP 162/59; PULSE 87; RESP 15; TEMP 36.8; O2SAT 96
[2023-09-02] MEDS: 0.9 % SODIUM CHLORIDE 1000ML 1,000 ML 50 ML IV (22:58)
[2023-09-02 23:08] VITALS: BP 162/59; PULSE 96; RESP 18; TEMP 37.2; O2SAT 97; BMI 36.5
[2023-09-02] MEDS: MORPHINE 2MG/ML SYRINGE 2 MG IV (23:58)
[2023-09-03] VITALS: BP 162/59; PULSE 96; RESP 18; TEMP 37.2; O2SAT 97
[2023-09-03] MEDS: diphenhydrAMINE 50MG/ML VIAL 25 MG IV ×2 (03:34→20:40)
[2023-09-03] MEDS: MORPHINE 2MG/ML SYRINGE 2 MG IV ×5 (03:48→20:40)
[2023-09-03 04:00] VITALS: BP 153/89; PULSE 78; RESP 18; TEMP 36.8; O2SAT 94; BMI 36.6
[2023-09-03 07:14] LABS: Basophils # 0.1 K/mm3 (0-0.2); Eosinophils % 0.3 % (0.1-12.0); Red Cell Distribution Width 14.9 % (11.5-17.5)
[2023-09-03 07:27] LABS: Alanine Aminotransferase 22 U/L (12-78); Albumin Level 3.4 g/dl (3.5-5.0); Albumin/Globulin Ratio 1.4 (1.1-1.8); Alkaline Phosphatase 85 U/L (38-126); Anion Gap 10.3 mEq/L (5-15); Aspartate Amino Transferase 32 U/L (14-36); Bilirubin,Total 0.6 mg/dl (0.2-1.3); Blood Urea Nitrogen 61 mg/dl (7-17); Calcium 9.6 mg/dl (8.4-10.2); Carbon Dioxide 23 mmol/L (22.0-30.0); Chloride 102 mmol/L (98-107); Creatinine Clearance Estimated 30 mL/min (50-200); Estimated Glomerular Filt Rate 25 ml/min (>60); GFR (African American) 31 ML/MIN (>60); Globulin 2.4 g/dL (1.3-3.2); Glucose 92 mg/dl (74-100); Magnesium 1.9 mg/dl (1.6-2.3); Potassium 5.3 mmoL/L (3.5-5.1); Sodium 130 mmol/L (136-145); Total Protein,Serum 5.8 g/dl (6.3-8.2)
[2023-09-03 07:33] LABS: Basophils % 0.5 % (0.1-2.0); Hematocrit 33.8 % (37.0-47.0); Hemoglobin 11.5 g/dL (12.2-16.2); Lymphocytes % 24.1 % (10-50); Mean Corpuscular Hemoglobin 30.8 pg (27.0-31.2); Mean Corpuscular Volume 90.5 fl (81-99); Monocytes # 1.4 K/mm3 (0.1-1.0); Platelet Count 310 K/mm3 (142-424); Red Blood Count 3.74 M/mm3 (4.20-5.40); White Blood Count 12.5 K/mm3 (4.8-10.8)
[2023-09-03 08:00] VITALS: BP 143/65; PULSE 76; RESP 18; TEMP 36.9; O2SAT 95
[2023-09-03] MEDS: PANTOPRAZOLE 40MG TABLET 40 MG PO (08:11)
--- NOTE | 2023-09-03 12:16 | HMH.PHAINT1 ---
Pharmacy Intervention Comments: MEDICATION RECONCILIATION COMPLETED ON PATIENT USING EXTERNAL FILL HISTORY FROM PHARMACY. -REJI BASILIO, HUED
--- NOTE | 2023-09-03 12:20 | P.PN_ITS ---
Subjective *Date: 09/03/23 *Time: 12:20 Interval history: patient is seen at bedside, denied hunger, mentions still has mild abdominal pain, looks comfortable in bed Exam Data for Last 24 hours Vital signs and Labs for Last 24 Hours: Temp Pulse Resp BP Pulse Ox O2 Del Method 98.5 F 76 18 143/65 H 95 Room Air 09/03/23 08:00 09/03/23 08:00 09/03/23 08:00 09/03/23 08:00 09/03/23 08:00 09/03/23 11:05 Laboratory Results - last 24 hr 09/02/23 18:45: Urine Color Yellow, Urine Appearance Clear, Urine pH 5.5, Ur Spe cific [place] 1.020, Urine Protein Negative, Urine Glucose (UA) Negative, Urine Ketones Negative, Urine Blood 1+, Urine Nitrate Negative, Urine Bilirubin Negative, Urine Urobilinogen 0.2, Ur Leukocyte Esterase Negative, Urine RBC Occasional, Urine WBC 3-5, Ur Squamous Epith Cells Occasional, Urine Bacteria Trace 09/02/23 19:20: WBC 11.8 H, RBC 4.19 L, Hgb 12.6, Hct 40.0, MCV 95.4, MCH 30.0, MCHC 31.5 L, RDW 14.4, Plt Count 376, MPV 8.9, Neut % (Auto) 66.3, Lymph % (Auto) 24.8, [place] % (Auto) 8.1, Eos % (Auto) 0.3, Baso % (Auto) 0.6, Neut # (Auto) 7.8, Lymph # (Auto) 2.9, [place] # (Auto) 1.0, Eos # (Auto) 0.0, Baso # (Auto) 0.1, Sodium 128 L, Potassium 5.7 H, Chloride 100, Carbon Dioxide 20 L, Anion Gap 13.7, BUN 67 H, Creatinine 1.90 H, Estimated Creat Clear 29, Estimated GFR 25 L, Est GFR ( Amer) 31 L, Glucose 119 H, Calcium 10.2, Total Bilirubin 0.8, AST 38 H, ALT 24, Alkaline Phosphatase 90, Total Protein 6.1 L, Albumin 3.8, Globulin 2.3, Albumin/Globulin Ratio 1.7, Lipase 2845 H 09/02/23 19:37: Lactate 1.1 09/03/23 06:50: WBC 12.5 H, RBC 3.74 L, Hgb 11.5 L, Hct 33.8 L, MCV 90.5, MCH 30.8, MCHC 34.0, RDW 14.9, Plt Count 310, MPV 9.0, Neut % (Auto) 64.0, Lymph % (Auto) 24.1, [place] % (Auto) 11.0 H, Eos % (Auto) 0.3, Baso % (Auto) 0.5, Neut # (Auto) 8.0 H, Lymph # (Auto) 3.0, [place] # (Auto) 1.4 H, Eos # (Auto) 0.0, Baso # (Auto) 0.1, Sodium 130 L, Potassium 5.3 H, Chloride 102, Carbon Dioxide 23, Anion Gap 10.3, BUN 61 H, Creatinine 1.90 H, Estimated Creat Clear 30, Estimated GFR 25 L, Est GFR ( Amer) 31 L, Glucose 92 D, Calcium 9.6, Magnesium 1.9, Total Bilirubin 0.6, AST 32, ALT 22, Alkaline Phosphatase 85, Total Protein 5.8 L, Albumin 3.4 L D, Globulin 2.4, Albumin/Globulin Ratio 1.4 I & O for Last 24 hours: Intake & Output 08/31/23 09/01/23 09/02/23 09/03/23 23:59 23:59 23:59 23:59 Intake Total 1380 / 1380 Output Total 0 / 0 Balance 1380 / 1380 Weight 84.368 kg 84.623 kg Constitutional Constitutional: no acute distress *Routine HEENT Exam Head: Present normocephalic Eye: Present EOMI and PERRL ENT: Present mucous membranes moist *Routine Neck Exam Neck: Present supple; Absent lymphadenopathy *Routine Respiratory Exam Respiratory: Present CTA bilaterally *Routine Cardiovascular Exam Cardiovascular: Present RRR *Routine Abdominal Exam Abdominal: Present soft, normoactive bowel sounds and tenderness Comments: has epigastric tenderness *Routine Extremities Exam Extremities: Absent cyanosis, clubbing or edema *Routine Skin Exam Skin: Present warm; Absent rash *Routine Neurological Exam Neurological: Present alert and oriented X3 Assessment and Plan *Assessment and plan (1) Acute pancreatitis: Status: Acute Qualifiers: Acute pancreatitis complication: no infection or necrosis Pancreatitis type: unspecified pancreatitis type Qualified Code(s): K85.90 - Acute pancreatitis without necrosis or infection, unspecified Category: Medical Code(s): K85.90 - Acute pancreatitis without necrosis or infection, unspecified (2) Acute kidney injury superimposed on CKD: Status: Acute Category: Medical Code(s): N17.9 - Acute kidney failure, unspecified; N18.9 - Chronic kidney disease, unspecified (3) Coronary artery disease: Status: Acute Qualifiers: Coronary Disease-Associated Artery/Lesion type: [place] artery [place] vs. transplanted heart: [place] heart Associated angina: without angina Qualified Code(s): I25.10 - Atherosclerotic heart disease of [place] coronary artery without angina pectoris Category: Medical Code(s): I25.10 - Atherosclerotic heart disease of [place] coronary artery without angina pectoris (4) HTN (hypertension): Status: Acute Qualifiers: Hypertension type: unspecified Qualified Code(s): I10 - Essential (primary) hypertension Category: Medical Code(s): I10 - Essential (primary) hypertension (5) Hypothyroid: Status: Acute Qualifiers: Hypothyroidism type: unspecified Qualified Code(s): E03.9 - Hypothyroidism, unspecified Category: Medical Code(s): E03.9 - Hypothyroidism, unspecified Plan 82-year-old female PMHx of hypertension, hyperlipidemia, CAD status post stenting, renal artery stenosis status post stenting, CKD, hysterectomy, cholecystectomy, gastric bypass presenting with abdominal pain. on arrival patient hemodinamically stable. physical exam of abdomen tenderness on the epigastrium. Labs was obtained leukocytosis 11.8 without neutrophilia. Chemis try with mild hyponatremia, hyperkalemia, KACY creatinine 1.9 and BUN 67. Patient was given fluids for this. Lipase elevated at almost 3000. Urinalysis clear.. CTA of the abdomen and pelvis without acute mesenteric. Pancreatic fat stranding concerning for pancreatitis. Findings discussed with ED. Agreed for admission. Plan as follow: Acute pancreatitis: no Infection or necrosis suspected. will deferred use of abx for now start on clear liquid diet pain management. patient previously tolerating morphine for pain zofran foir nauseas and vomiting cont IV hydration repeat daily labs monitor for sepsis and acute abdomen VS per unit protocols -KACY-on CKD: on IV NS for maintenance avoid nephrotoxic medication monitor CAD, HT, HLD, Hypothyroid: resume home meds on synthroid plavix , aspirin and statin DNR continue IV fluids, advance to clear liquid, advance as tolerated
[2023-09-03 15:33] VITALS: BP 163/70; PULSE 85; RESP 18; TEMP 37.1; O2SAT 95
--- OUTSIDE RECORDS SUMMARY | 2023-09-03 15:35 | XMS_ITS | Clinical Summary ---
Author Name Unknown Address [address] [place] [address] [place] [address] Phone Organization [facility] Address [address] [place] [address] Phone Care Team Providers Care Material Loader Name Role Phone Campbell MAURO, Andrés Cabrera Unavailable [phone] VINAY BLANCO MD Unavailable [phone] Reason for Visit and Chief Complaint The Chief Complaint is: low back pain Problems Includes: Problems addressed during this encounter and other active Problems Current Visit Onset Date Resolved Date Provider Watson guzman Status Lower Back Pain 09/21/2021 Arthur Ramos PA-C A ctive Last Documented On 12:57PM ; [facility] Plan of Treatment Fall Risk Assessment: This [...] - Last Documented On 04/12/2022 10:36AM ; [facility] Instructions to patient Lose weight Last Documented On 12:54PM ; [facility] Assessments Includes: Assessments from this encounter No Assessments Recorded Instructions Includes: Instructions from this encounter Instructions to patient Lose weight Last Documented On 12:54PM ; [facility] Medical Equipment - Implanted Devices Includes: Current Devices No Medical Equipment Recorded Medications Includes: Medications discussed during this encounter and other current Medications Current Medications (continue as prescribed) Cephalexin 500 MG Oral Tablet 03/04/2022 Provider: Diagnosis: Last Documented On 2 1:43PM By Karma Dia ; [facility], [facility] Meloxicam 15 MG Oral Tablet 09/16/2021 Provider: VINAY BLANCO MD Diagnosis: Last Documented On 2 1:00PM By Nickie Max ; [facility] Pravastatin Sodium 40 MG Oral Tablet 09/06/2021 Prov ider: VINAY BLANCO MD Diagnosis: Last Documented On 2 1:00PM By Nickie Max ; [facility] traZODone HCl 50 MG Oral Tablet 08/24/2021 Provider: CHELSEY JUDGE Diagnosis: Last Documented On 2 1:00PM By Nickie Max ; [facility] Verapamil HCl 120 MG Oral Tablet 08/24/2021 Provider : CHELSEY JUDGE Diagnosis: Last Documented On 2 1:00PM By Nickie Max ; [facility] Fenofibrate 145 MG Oral Tablet 08/22/2021 Provider: VINAY BLANCO MD Diagnosis: Last Documented On 2 1:00PM By Nickie Max ; [facility] Synthroid 75 MCG Oral Tablet 08/22/2021 Provider: VINAY BLANCO MD Diagnosis: Last Documented On 2 1:00PM By Nickie Max ; [facility] Ursodiol 300 MG Oral Capsule 08/18/2021 Provider: CHELSEY JUDGE Diagnosis: Last Documented On 2 1:00PM By Nickie Max ; [facility] Past Medications on file Percocet 5-325 MG Oral Tablet 01/18/2022 - 02/02/2022 Provider: Cem Amado MD Diagnosis: 1 po q 4h prn pain Last Documented On 2 2:12PM By Cem Amado ; [facility] Medications Administered Includes: Administered Medications from this encounter No Administered Medications Recorded Vital Signs Includes: Vital Signs from this encounter Vital Name 01/28/2022 01:08P Blood Pressure Sitting (mmHg) 105/60 Pulse Rate-Sitting (bpm) 73 Temp-Oral (F) 98.1 Height (in) 62 Weight (lb) 175 Body Mass Index (kg/m2) 32.0 Body Surface Area (m2) 1.8 Note: kns Last Documented: On 01/28/2022 1:38PM ; [facility] Results Includes: Results discussed during this encounter No Results Recorded For Specified Dates History of Present Illness Includes: History of Present Illness from this encounter HPI Dianne Mcneal is an 81 year old female. - Allergy list reviewed - Problem list reviewed - Medication list reviewed with patient Social History Description Last Updated Tobacco non-user 04/16/2022 Last Documented On 2 12:54PM ; [facility] No tobacco use 12/20/2021 Last Documented On 2 12:54PM ; [facility] Not a smoker 12/03/2021 Last Documented On 2 12:54PM ; [facility] Caffeine use 09/21/2021 Last Documented On 2 12:54PM ; [facility] No recent change in diet 09/21/2021 Last Documented On 2 12:54PM ; [facility] Not a current smoker. 09/21/2021 Last Documented On 2 12:54PM ; [facility] Not exercising regularly 09/21/2021 Last Documented On 2 12:54PM ; [facility] Not using alcohol 09/21/2021 Last Documented On 2 12:54PM ; [facility] Not using drugs 09/21/2021 Last Documented On 2 12:54PM ; [facility] Former smoker 09/21/2021 Last Documented On 2 12:54PM ; [facility] Never drank alcohol 09/21/2021 Last Documented On 2 12:54PM ; [facility] Never used drugs 09/21/2021 Last Documented On 2 12:54PM ; [facility] Non-smoker 09/21/2021 Last Documented On 2 12:54PM ; [facility] Smoking Status Unknown Procedures and Surgical History Includes: Procedures from this encounter Procedures Code Diagnosis Performing Provider Service L ocation Service Date use of tobacco assessment performed 1000F Last Documented On 2 12:54PM ; [facility] no influenza immunization patient refuse d Last Documented On 2 12:54PM ; [facility] patient screened for future fall risk 3288F Last Documented On 2 12:54PM ; [facility] patient screened for future fall risk: documentation of any fall with injury in past year 1100F Last Documented On 2 12:54PM ; [facility] an X-ray was performed 48111 Last Documented On 12:54PM ; [facility] Surgical History Last Updated History of heart surgery 09/21/2021 Last Documented On 2 12:54PM ; [facility] History of History of Gallbladder 2021 Last Documented On 12:54PM ; [facility] History of hysterectomy 09/21/2021 Last Documented On 2 12:54PM ; [facility] History of shoulder arthroplasty 022 Last Documented On 12:54PM ; [facility] Medical History Includes: Medical History addressed during this encounter Description Last Updated Past Surgical History: uteri n suspension ~breast biopsy ~bladder biopsy ~bladder and urethra stretch ~heart cath ~gastric bypass ~cateracts ~skin cancer ~Edge procedure 09/21/2021 Last Documented On 2 12:54PM ; [facility] History of asthma 09/21/2021 Last Documented On 2 12:54PM ; [facility] History of diverticulitis of colon 09/21 Last Documented On 12:54PM ; [facility] History of gastric ulcer 09/21/2021 Last Documented On 2 12:54PM ; [facility] History of heart disease 09/21/2021 Last Documented On 12:54PM ; [facility] History of History of Blood Clots 2021 Last Documented On 2 12:54PM ; [facility] History of History of Heart Attack / Str stephanie 09/21/2021 Last Documented On 2 12:54PM ; [facility] History of Hypertension 09/21/2021 Last Documented On 2 12:54PM ; [facility] History of Irregular Heartbeat 2 Last Documented On 2 12:54PM ; [facility] History of Kidney Disease 09/21/2021 Last Documented On 2 12:54PM ; [facility] History of Thyroid Disease 09/21/2021 Last Documented On 2 12:54PM ; [facility] No recent immunization for flu 2 Last Documented On 2 12:54PM ; [facility] No recent immunization for pneumococcal pneumonia 09/21/2021 Last Documented On 2 12:54PM ; [facility] Family History Includes: Family History addressed during this encounter Description Last Updated Diabetes mellitus 09/21/2021 Last Documented On 2 12:54PM ; [facility] Family history of cancer 09/21/2021 Last Documented On 2 12:54PM ; [facility] Family history of osteoporosis 2 Last Documented On 2 12:54PM ; [facility] Family history of rheumatoid arthritis 0 09/21/2021 Last Documented On 2 12:54PM ; [facility] Family history of systemic hypertension 09/21/2021 Last Documented On 2 12:54PM ; [facility] Fraternal history of diabetes mellitus 0 09/21/2021 Last Documented On 2 12:54PM ; [facility] Fraternal history of family history of c ancer 09/21/2021 Last Documented On 2 12:54PM ; [facility] Fraternal history of family history of h eart disease 09/21/2021 Last Documented On 2 12:54PM ; [facility] Fraternal history of osteoporosis 2021 Last Documented On 2 12:54PM ; [facility] Fraternal history of systemic hypertensi on 09/21/2021 Last Documented On 2 12:54PM ; [facility] Maternal grandfather's history of family history of heart disease 09/21/2021 Last Documented On 2 12:54PM ; [facility] Maternal grandfather's history of system ic hypertension 09/21/2021 Last Documented On 12:54PM ; [facility] Maternal history of family history of he art disease 09/21/2021 Last Documented On 12:54PM ; [facility] Maternal history of osteoporosis 022 Last Documented On 2 12:54PM ; [facility] Maternal history of rheumatoid arthritis 09/21/2021 Last Documented On 2 12:54PM ; [facility] Maternal history of systemic hypertensio n 09/21/2021 Last Documented On 2 12:54PM ; [facility] Paternal grandfather's history of family history of heart disease 09/21/2021 Last Documented On 2 12:54PM ; [facility] Paternal history of family history of he art disease 09/21/2021 Last Documented On 2 12:54PM ; [facility] Paternal history of systemic hypertensio n 09/21/2021 Last Documented On 2 12:54PM ; [facility] Sororal history of diabetes mellitus Last Documented On 12:54PM ; [facility] Sororal history of family history of can cer 09/21/2021 Last Documented On 2 12:54PM ; [facility] Sororal history of family history of hea rt disease 09/21/2021 Last Documented On 12:54PM ; [facility] Sororal history of systemic hypertension 09/21/2021 Last Documented On 2 12:54PM ; [facility] Review of Systems Includes: Review of Systems from this encounter Systemic: Feeling tired. No recent weight loss. Recent weight gain. Head: No headache and no sinus pain. Eyes: No vision problems, no Cataracts, no Glasses/Contacts, and no Glaucoma. Otolaryngeal: No hearing loss. Tinnitus. Cardiovascular: Chest pain or discomfort. No palpitations, no Hypertension, and no High Cholesterol. Pulmonary: No daytime asthma symptoms and no chronic cough. No wheezing. Gastrointestinal: Gastrointestinal symptoms Edge procedure done because of continued problem with stones. No heartburn. Abdominal pain. No Indigestion, no Acid Reflux, no Peptic Ulcer, and no GI Stomach Bleed. Ulcers. Endocrine: No hot flashes. Muscle weakness. No Diabetes, no Hypothyroid, and no Hyperthyroid. Hematologic: No easy bleeding, no tendency for easy bruising, and no Anemia. Musculoskeletal: Arthritis and lower back pain. No soft tissue swelling. Pain localized to one or more joints. Neurological: Dizziness. No convulsions and no numbness. Psychological: No anxiety, no emotional lability, no depression, and no insomnia. Not crying for no reason. Skin: No dry skin. No Ulcers, no Scars, and no rash. Allergic and Immunologic: Complaint of seasonal allergic reaction. Mental Status Includes: Mental Status from this encounter Description No anxiety Functional Status Includes: Functional Status from this encounter No Functional Status Recorded Physical Exam Includes: Physical Exam from this encounter Allergies Includes: Active Allergies Substance Type Reaction Onset Date Resolved Date Statu s Tylenol Extra Strength Allergy 09/21/2021 Active Last Documented On 2 1:42PM ; [facility] Sulfa Antibiotics Allergy 09/21/2021 A ctive Last Documented On 2 1:42PM ; [facility] penicillAMINE Allergy 09/21/2021 Activ e Last Documented On 2 1:42PM ; [facility] [place] Allergy 09/21/2021 Active Last Documented On 2 1:42PM ; [facility] Latex Allergy 09/21/2021 Active Last Documented On 2 1:42PM ; [facility] Erythromycin Allergy 09/21/2021 Active Last Documented On 2 1:42PM ; [facility] Cortisone Shots Allergy 09/21/2021 Act ron Last Documented On 2 1:42PM ; [facility] Claritin Allergy 09/21/2021 Active Last Documented On 2 1:42PM ; [facility] Ciprofloxacin Allergy 09/21/2021 Activ e Last Documented On 2 1:42PM ; [facility] Atenolol Allergy 09/21/2021 Active Last Documented On 2 1:42PM ; [facility] Encounters Encounter Provider Location Date Check-In Time Check- Out Time Diagnosis Post Op Cem Amado MD [facility] 2 12:52PM 1:57PM Insurance Includes: Active Insurance Policies Plan Name Member ID Group # Subscriber Relationship Effect ron Dates 1 - [facility] /[employer] [id number] Dianne Mcneal Self 05/02/2021 - Unknown Clinical Notes Includes: Clinical Notes from this encounter No Clinical Notes Recorded
--- OUTSIDE RECORDS SUMMARY | 2023-09-03 15:35 | XMS_ITS | Clinical Summary ---
Author Name Unknown Address [address] [place] [address] [place] [address] Phone Organization [facility] Address [address] [place] [address] Phone Care Team Providers Care Control Clerk Subassembly Name Role Phone Campbell MAURO, Andrés Cabrera Unavailable [phone] VINAY BLANCO MD Unavailable [phone] Reason for Referral Date Encounter [...] A ctive Last Documented On 12:57PM ; [facility] Plan of Treatment Patient was seen by myself Arthur Ramos PA-C. Patient will follow up as needed for now we will refer her to physical therapy if she plateaus and not happy with her progress she is to come back to see us. - Last Documented On 04/07/2022 7:43AM ; [facility] Fall Risk Assessment: This patient has [...] - Last Documented On 04/07/2022 7:43AM ; [facility] Pending Tests Order Diagnosis Results Due Ordering P rovider Therapy - Physical Therapy Lumbar 03/04/22 Cem Amado MD Last Documented On 2 7:43AM ; [facility] Instructions to patient Lose weight Last Documented On 2 1:42PM ; [facility] Assessments Includes: Assessments from this encounter Findings Left L4-5 decompression January 20, 2022 - Last Documented On 04/07/2022 7:43AM ; [facility] Instructions Includes: Instructions from this encounter Instructions to patient Lose weight Last Documented On 2 1:42PM ; [facility] Medical Equipment - Implanted Devices Includes: Current Devices No Medical Equipment Recorded Medications Includes: Medications discussed during this encounter and other current Medications Current Medications (continue as prescribed) Cephalexin 500 MG Oral Tablet 03/04/2022 Provider: Diagnosis: Last Documented On 2 1:43PM By Karma Dia ; [facility] Meloxicam 15 MG Oral Tablet 09/16/2021 Provider: VINAY BLANCO MD Diagnosis: Last Documented On 2 1:00PM By Nickie Max ; [facility] Pravastatin Sodium 40 MG Oral Tablet 09/06/2021 Prov ider: VINAY BLANCO MD Diagnosis: Last Documented On 2 1:00PM By Nickie Max ; [facility] traZODone HCl 50 MG Oral Tablet 08/24/2021 Provider: CHELSEY JUDGE Diagnosis: Last Documented On 2 1:00PM By Nickie Max ; [facility] Verapamil HCl 120 MG Oral Tablet 08/24/2021 Provider : CHELSEY JUDGE Diagnosis: Last Documented On 2 1:00PM By Nickie Max ; [facility] Fenofibrate 145 MG Oral Tablet 08/22/2021 Provider: VINAY BLANCO MD Diagnosis: Last Documented On 2 1:00PM By Nickie Max ; [facility] Synthroid 75 MCG Oral Tablet 08/22/2021 Provider: VINAY BLANCO MD Diagnosis: Last Documented On 2 1:00PM By Nickie Max ; [facility] Ursodiol 300 MG Oral Capsule 08/18/2021 Provider: CHELSEY JUDGE Diagnosis: Last Documented On 2 1:00PM By Nickie Max ; [facility] Past Medications on file Percocet 5-325 MG Oral Tablet 01/18/2022 - 02/02/2022 Provider: Cem Amado MD Diagnosis: 1 po q 4h prn pain Last Documented On 2 2:12PM By Cem Amado ; [facility] Medications Administered Includes: Administered Medications from this encounter No Administered Medications Recorded Vital Signs Includes: Vital Signs from this encounter Vital Name 03/04/2022 01:43P Blood Pressure Sitting (mmHg) 142/68 Pulse Rate-Sitting (bpm) 73 Height (in) 62 Weight (lb) 175 Body Mass Index (kg/m2) 32.0 Body Surface Area (m2) 1.8 Note: kns Last Documented: On 03/04/2022 1:46PM ; [facility] Results Includes: Results discussed during this encounter No Results Recorded For Specified Dates History of Present Illness Includes: History of Present Illness from this encounter MADISON Mcneal is an 81 year old female. - Allergy list reviewed - Problem list reviewed - Medication list reviewed with patient Patient is here today for follow-up of her L4-5 left-sided minimally invasive decompression. She is feeling much better with her left leg pain. Initially post surgery she had difficulties walking and had to be admitted to the hospital it was felt that the facet probably broke down and caused some fluid collection in the back of the spine. She is also been diagnosed with a UTI recently has been placed on Keflex. Biggest complaint now she has back pain Social History Description Last Updated Tobacco non-user 04/16/2022 Last Documented On 2 1:42PM ; [facility] No tobacco use 12/20/2021 Last Documented On 2 1:42PM ; [facility] Not a smoker 12/03/2021 Last Documented On 2 1:42PM ; [facility] Caffeine use 09/21/2021 Last Documented On 2 1:42PM ; [facility] No recent change in diet 09/21/2021 Last Documented On 2 1:42PM ; [facility] Not a current smoker. 09/21/2021 Last Documented On 2 1:42PM ; [facility] Not exercising regularly 09/21/2021 Last Documented On 2 1:42PM ; [facility] Not using alcohol 09/21/2021 Last Documented On 2 1:42PM ; [facility] Not using drugs 09/21/2021 Last Documented On 2 1:42PM ; [facility] Never drank alcohol 09/21/2021 Last Documented On 2 1:42PM ; [facility] Never used drugs 09/21/2021 Last Documented On 2 1:42PM ; [facility] Non-smoker 09/21/2021 Last Documented On 2 1:42PM ; [facility] Smoking Status Unknown Procedures and Surgical History Includes: Procedures from this encounter Procedures Code Diagnosis Performing Provider Service L ocation Service Date use of tobacco assessment performed 1000F Last Documented On 2 1:42PM ; [facility] no influenza immunization patient refuse d Last Documented On 2 1:42PM ; [facility] patient screened for future fall risk 3288F Last Documented On 2 1:42PM ; [facility] patient screened for future fall risk: documentation of any fall with injury in past year 1100F Last Documented On 2 1:42PM ; [facility] follow-up visit in one month Last Documented On 2 7:43AM ; [facility] referral to physician Last Documented On 2 7:43AM ; [facility] an X-ray was performed 45789 Last Documented On 2 1:42PM ; [facility] Surgical History Last Updated History of heart surgery 09/21/2021 Last Documented On 2 1:42PM ; [facility] History of History of Gallbladder 2021 Last Documented On 2 1:42PM ; [facility] History of hysterectomy 09/21/2021 Last Documented On 2 1:42PM ; [facility] History of shoulder arthroplasty 022 Last Documented On 2 1:42PM ; [facility] Medical History Includes: Medical History addressed during this encounter Description Last Updated Past Surgical History: uteri n suspension ~breast biopsy ~bladder biopsy ~bladder and urethra stretch ~heart cath ~gastric bypass ~cateracts ~skin cancer ~Edge procedure 09/21/2021 Last Documented On 2 1:42PM ; [facility] History of asthma 09/21/2021 Last Documented On 2 1:42PM ; [facility] History of diverticulitis of colon 09/21 Last Documented On 2 1:42PM ; [facility] History of gastric ulcer 09/21/2021 Last Documented On 2 1:42PM ; [facility] History of heart disease 09/21/2021 Last Documented On 2 1:42PM ; [facility] History of History of Blood Clots 2021 Last Documented On 2 1:42PM ; [facility] History of History of Heart Attack / Str stephanie 09/21/2021 Last Documented On 2 1:42PM ; [facility] History of Hypertension 09/21/2021 Last Documented On 2 1:42PM ; [facility] History of Irregular Heartbeat 2 Last Documented On 2 1:42PM ; [facility] History of Kidney Disease 09/21/2021 Last Documented On 2 1:42PM ; [facility] History of Thyroid Disease 09/21/2021 Last Documented On 2 1:42PM ; [facility] No recent immunization for flu 2 Last Documented On 2 1:42PM ; [facility] No recent immunization for pneumococcal pneumonia 09/21/2021 Last Documented On 2 1:42PM ; [facility] Family History Includes: Family History addressed during this encounter Description Last Updated Diabetes mellitus 09/21/2021 Last Documented On 2 1:42PM ; [facility] Family history of cancer 09/21/2021 Last Documented On 2 1:42PM ; [facility] Family history of osteoporosis 2 Last Documented On 2 1:42PM ; [facility] Family history of rheumatoid arthritis 0 09/21/2021 Last Documented On 2 1:42PM ; [facility] Family history of systemic hypertension 09/21/2021 Last Documented On 2 1:42PM ; [facility] Fraternal history of diabetes mellitus 0 09/21/2021 Last Documented On 2 1:42PM ; [facility] Fraternal history of family history of c ancer 09/21/2021 Last Documented On 2 1:42PM ; [facility] Fraternal history of family history of h eart disease 09/21/2021 Last Documented On 2 1:42PM ; [facility] Fraternal history of osteoporosis 2021 Last Documented On 2 1:42PM ; [facility] Fraternal history of systemic hypertensi on 09/21/2021 Last Documented On 2 1:42PM ; [facility] Maternal grandfather's history of family history of heart disease 09/21/2021 Last Documented On 2 1:42PM ; [facility] Maternal grandfather's history of system ic hypertension 09/21/2021 Last Documented On 2 1:42PM ; [facility] Maternal history of family history of he art disease 09/21/2021 Last Documented On 2 1:42PM ; [facility] Maternal history of osteoporosis 022 Last Documented On 2 1:42PM ; [facility] Maternal history of rheumatoid arthritis 09/21/2021 Last Documented On 2 1:42PM ; [facility] Maternal history of systemic hypertensio n 09/21/2021 Last Documented On 2 1:42PM ; [facility] Paternal grandfather's history of family history of heart disease 09/21/2021 Last Documented On 2 1:42PM ; [facility] Paternal history of family history of he art disease 09/21/2021 Last Documented On 2 1:42PM ; [facility] Paternal history of systemic hypertensio n 09/21/2021 Last Documented On 2 1:42PM ; [facility] Sororal history of diabetes mellitus Last Documented On 2 1:42PM ; [facility] Sororal history of family history of can cer 09/21/2021 Last Documented On 2 1:42PM ; [facility] Sororal history of family history of hea rt disease 09/21/2021 Last Documented On 2 1:42PM ; [facility] Sororal history of systemic hypertension 09/21/2021 Last Documented On 2 1:42PM ; [facility] Review of Systems Includes: Review of Systems [...] Active Last Documented On 2 1:42PM ; [facility] Sulfa Antibiotics Allergy 09/21/2021 A ctive Last Documented On 2 1:42PM ; [facility] penicillAMINE Allergy 09/21/2021 Activ e Last Documented On 2 1:42PM ; [facility] [place] Allergy 09/21/2021 Active Last Documented On 2 1:42PM ; [facility] Latex Allergy 09/21/2021 Active Last Documented On 2 1:42PM ; [facility] Erythromycin Allergy 09/21/2021 Active Last Documented On 2 1:42PM ; [facility] Cortisone Shots Allergy 09/21/2021 Act ron Last Documented On 2 1:42PM ; [facility] Claritin Allergy 09/21/2021 Active Last Documented On 2 1:42PM ; [facility] Ciprofloxacin Allergy 09/21/2021 Activ e Last Documented On 2 1:42PM ; [facility] Atenolol Allergy 09/21/2021 Active Last Documented On 2 1:42PM ; [facility] Encounters Encounter Provider Location Date Check-In Time Check- Out Time Diagnosis Post Op Cem Amado MD [facility] 2 1:24PM 2:07PM Insurance Includes: Active Insurance Policies Plan Name Member ID Group # Subscriber Relationship Effect ron Dates 1 - [facility] [id number] Dianne Mcneal Self 05/02/2021 - Unknown Clinical Notes Includes: Clinical Notes from this encounter No Clinical Notes Recorded
--- OUTSIDE RECORDS SUMMARY | 2023-09-03 15:35 | XMS_ITS ---
Author Name Unknown Address [address] [place] [address] [place] [address] Phone Organization [facility] Address [address] [place] [address] Phone Care Team Providers Care Production Aide Name Role Phone Campbell MAURO, Andrés Cabrera Unavailable [phone] VINAY BLANCO MD Unavailable [phone] Reason for Referral Date Encounter [...] Ramos PA-C A ctive Last Documented On 2 12:57PM ; [facility] Plan of Treatment Pending Tests Order Diagnosis Results Due Ordering P rovider Radiology - CT Scan Lumbar 10/05/21 Sergio Ramos PA-C Last Documented On 2 4:06PM ; [facility] Instructions to patient Lose weight Last Documented On 2 1:42PM ; [facility] Lose weight Last Documented On 2 11:05AM ; [facility] No intervention and counseli ng on cessation of tobacco use Last Documented On 2 1:33PM ; [facility] Lose weight Last Documented On 2 1:33PM ; [facility] Lose weight Last Documented On 2 12:54PM ; [facility] No intervention and counseli ng on cessation of tobacco use Last Documented On 2 10:54AM ; [facility] Lose weight Last Documented On 2 2:02PM ; [facility] Lose weight Last Documented On 2 9:49AM ; [facility] Lose weight Last Documented On 2 1:03PM ; [facility] Lose weight Last Documented On 2 12:58PM ; [facility] Assessments Includes: Assessments for all patient encounters No Assessments Recorded Instructions Includes: Instructions for all patient encounters Instructions to patient Lose weight Last Documented On 2 1:42PM ; [facility] Lose weight Last Documented On 2 11:05AM ; [facility] No intervention and counseli ng on cessation of tobacco use Last Documented On 2 1:33PM ; [facility] Lose weight Last Documented On 2 1:33PM ; [facility] Lose weight Last Documented On 2 12:54PM ; [facility] No intervention and counseli ng on cessation of tobacco use Last Documented On 2 10:54AM ; [facility] Lose weight Last Documented On 2 2:02PM ; [facility] Lose weight Last Documented On 2 9:49AM ; [facility] Lose weight Last Documented On 2 1:03PM ; [facility] Lose weight Last Documented On 2 12:58PM ; [facility] Medical Equipment - Implanted Devices Includes: Current and historical Devices No Medical Equipment Recorded Medications Includes: Current and historical Medications Current Medications (continue as prescribed) Cephalexin 500 MG Oral Tablet 03/04/2022 Provider: Diagnosis: Last Documented On 2 1:43PM By Karma Dia ; [facility] Meloxicam 15 MG Oral Tablet 09/16/2021 Provider: VINAY BLANCO MD Diagnosis: Last Documented On 2 1:00PM By Nickie Max ; [facility] Pravastatin Sodium 40 MG Oral Tablet 09/06/2021 Prov ider: VINAY BLANCO MD Diagnosis: Last Documented On 2 1:00PM By Nickie Max ; [facility] traZODone HCl 50 MG Oral Tablet 08/24/2021 Provider: CHELSEY JUDGE Diagnosis: Last Documented On 2 1:00PM By Nickie Max ; [facility] Verapamil HCl 120 MG Oral Tablet 08/24/2021 Provider : CHELSEY JUDGE Diagnosis: Last Documented On 2 1:00PM By Nickie Max ; [facility] Fenofibrate 145 MG Oral Tablet 08/22/2021 Provider: VINAY BLANCO MD Diagnosis: Last Documented On 2 1:00PM By Nickie Max ; [facility] Synthroid 75 MCG Oral Tablet 08/22/2021 Provider: VINAY BLANCO MD Diagnosis: Last Documented On 2 1:00PM By Nickie Max ; [facility] Ursodiol 300 MG Oral Capsule 08/18/2021 Provider: CHELSEY JUDGE Diagnosis: Last Documented On 2 1:00PM By Nickie Max ; [facility] Past Medications on file Percocet 5-325 MG Oral Tablet 01/18/2022 - 02/02/2022 Provider: Cem Amado MD Diagnosis: 1 po q 4h prn pain Last Documented On 2 2:12PM By Cem Amado ; [facility] hydroCHLOROthiazide 25 MG Or al Tablet 09/04/2021 - 02/18/2022 Provider: CHELSEY JUDGE Diagnosis: Last Documented On 2 11:08AM By Karma Dia ; [facility] Medications Administered Includes: Administered Medications in patient's chart No Administered Medications Recorded Results Includes: Results from 09/02/2022 through 09/03/2023 No Results Recorded For Specified Dates History of Present Illness History of Present Illness not supported for this document type No History of Present Illness Recorded Social History Description Last Updated Tobacco non-user 04/16/2022 Last Documented On 2 6:04PM ; [facility] No tobacco use 12/20/2021 Last Documented On 2 10:54AM ; [facility] Not a smoker 12/03/2021 Last Documented On 2 6:04PM ; [facility] Caffeine use 09/21/2021 Last Documented On 2 4:06PM ; [facility] No recent change in diet 09/21/2021 Last Documented On 2 4:06PM ; [facility] Not a current smoker. 09/21/2021 Last Documented On 2 4:06PM ; [facility] Not exercising regularly 09/21/2021 Last Documented On 2 4:06PM ; [facility] Not using alcohol 09/21/2021 Last Documented On 2 4:06PM ; [facility] Not using drugs 09/21/2021 Last Documented On 2 4:06PM ; [facility] Former smoker 09/21/2021 Last Documented On 2 4:06PM ; [facility] Never drank alcohol 09/21/2021 Last Documented On 2 4:06PM ; [facility] Never used drugs 09/21/2021 Last Documented On 2 4:06PM ; [facility] Non-smoker 09/21/2021 Last Documented On 2 4:06PM ; [facility] Smoking Status Unknown Procedures and Surgical History Surgical History Last Updated History of heart surgery 09/21/2021 Last Documented On 2 4:06PM ; [facility] History of History of Gallbladder 2021 Last Documented On 2 4:06PM ; [facility] History of hysterectomy 09/21/2021 Last Documented On 2 4:06PM ; [facility] History of shoulder arthroplasty 022 Last Documented On 2 4:06PM ; [facility] Medical History Includes: Medical History in patient's chart Description Last Updated Past Surgical History: uteri n suspension ~breast biopsy ~bladder biopsy ~bladder and urethra stretch ~heart cath ~gastric bypass ~cateracts ~skin cancer ~Edge procedure 09/21/2021 Last Documented On 2 4:06PM ; [facility] History of asthma 09/21/2021 Last Documented On 2 4:06PM ; [facility] History of diverticulitis of colon 09/21 Last Documented On 2 4:06PM ; [facility] History of gastric ulcer 09/21/2021 Last Documented On 2 4:06PM ; [facility] History of heart disease 09/21/2021 Last Documented On 2 4:06PM ; [facility] History of History of Blood Clots 2021 Last Documented On 2 4:06PM ; [facility] History of History of Heart Attack / Str stephanie 09/21/2021 Last Documented On 2 4:06PM ; [facility] History of Hypertension 09/21/2021 Last Documented On 2 4:06PM ; [facility] History of Irregular Heartbeat 2 Last Documented On 2 4:06PM ; [facility] History of Kidney Disease 09/21/2021 Last Documented On 2 4:06PM ; [facility] History of Thyroid Disease 09/21/2021 Last Documented On 2 4:06PM ; [facility] No recent immunization for flu 2 Last Documented On 2 4:06PM ; [facility] No recent immunization for pneumococcal pneumonia 09/21/2021 Last Documented On 2 4:06PM ; [facility] Family History Includes: Family History in patient's chart Description Last Updated Diabetes mellitus 09/21/2021 Last Documented On 2 4:06PM ; [facility] Family history of cancer 09/21/2021 Last Documented On 2 4:06PM ; [facility] Family history of osteoporosis 2 Last Documented On 2 4:06PM ; [facility] Family history of rheumatoid arthritis 0 09/21/2021 Last Documented On 2 4:06PM ; [facility] Family history of systemic hypertension 09/21/2021 Last Documented On 2 4:06PM ; [facility] Fraternal history of diabetes mellitus 0 09/21/2021 Last Documented On 2 4:06PM ; [facility] Fraternal history of family history of c ancer 09/21/2021 Last Documented On 2 4:06PM ; [facility] Fraternal history of family history of h eart disease 09/21/2021 Last Documented On 2 4:06PM ; [facility] Fraternal history of osteoporosis 2021 Last Documented On 2 4:06PM ; [facility] Fraternal history of systemic hypertensi on 09/21/2021 Last Documented On 2 4:06PM ; [facility] Maternal grandfather's history of family history of heart disease 09/21/2021 Last Documented On 2 4:06PM ; [facility] Maternal grandfather's history of system ic hypertension 09/21/2021 Last Documented On 2 4:06PM ; [facility] Maternal history of family history of he art disease 09/21/2021 Last Documented On 2 4:06PM ; [facility] Maternal history of osteoporosis 022 Last Documented On 2 4:06PM ; [facility] Maternal history of rheumatoid arthritis 09/21/2021 Last Documented On 2 4:06PM ; [facility] Maternal history of systemic hypertensio n 09/21/2021 Last Documented On 2 4:06PM ; [facility] Paternal grandfather's history of family history of heart disease 09/21/2021 Last Documented On 2 4:06PM ; [facility] Paternal history of family history of he art disease 09/21/2021 Last Documented On 2 4:06PM ; [facility] Paternal history of systemic hypertensio n 09/21/2021 Last Documented On 2 4:06PM ; [facility] Sororal history of diabetes mellitus Last Documented On 2 4:06PM ; [facility] Sororal history of family history of can cer 09/21/2021 Last Documented On 2 4:06PM ; [facility] Sororal history of family history of hea rt disease 09/21/2021 Last Documented On 2 4:06PM ; [facility] Sororal history of systemic hypertension 09/21/2021 Last Documented On 2 4:06PM ; [facility] Review of Systems Review of Systems not supported for this document type No Review of Systems Recorded Mental Status Description No anxiety Functional Status No Functional Status Recorded Physical Exam Physical Exam not supported for this document type No Physical Exam Recorded Allergies Includes: Active, inactive, and resolved Allergies Substance Type Reaction Onset Date Resolved Date Statu s Tylenol Extra Strength Allergy 09/21/2021 Active Last Documented On 2 1:42PM ; [facility] Sulfa Antibiotics Allergy 09/21/2021 A ctive Last Documented On 2 1:42PM ; [facility] penicillAMINE Allergy 09/21/2021 Activ e Last Documented On 2 1:42PM ; [facility] [place] Allergy 09/21/2021 Active Last Documented On 2 1:42PM ; [facility] Latex Allergy 09/21/2021 Active Last Documented On 2 1:42PM ; [facility] Erythromycin Allergy 09/21/2021 Active Last Documented On 2 1:42PM ; [facility] Cortisone Shots Allergy 09/21/2021 Act ron Last Documented On 2 1:42PM ; [facility] Claritin Allergy 09/21/2021 Active Last Documented On 2 1:42PM ; [facility] Ciprofloxacin Allergy 09/21/2021 Activ e Last Documented On 2 1:42PM ; [facility] Atenolol Allergy 09/21/2021 Active Last Documented On 2 1:42PM ; [facility] Insurance Includes: Active Insurance Policies Plan Name Member ID Group # Subscriber Relationship Effect ron Dates 1 - [facility] /MEDICARE [id number] Dianne Mcneal Self 05/02/2021 - Unknown Clinical Notes Includes: Signed Clinical Notes starting from 04/15/2022 No Clinical Notes Recorded
--- OUTSIDE RECORDS SUMMARY | 2023-09-03 15:35 | XMS_ITS | Clinical Summary ---
Author Name Unknown Address [address] [place] [address] [place] [address] Phone Organization [facility] Address [address] [place] [address] Phone Care Team Providers Care Hand Packer/Packager Name Role Phone Campbell MAURO, Andrés Cabrera Unavailable [phone] VINAY BLANCO MD Unavailable [phone] Reason for Referral Date Encounter [...] A ctive Last Documented On 12:57PM ; [facility] Plan of Treatment Patient was seen by [...] - Last Documented On 04/08/2022 6:50AM ; [facility] Fall Risk Assessment: This patient has been [...] with the patient. - Last Documented On 04/08/2022 6:50AM ; [facility] Instructions to patient Lose weight Last Documented On 2 11:05AM ; [facility] Assessments Includes: Assessments from this encounter Findings Left L4-5 decompression - Last Documented On 04/08/2022 6:50AM ; [facility] fluid collection that developed post surgery - Last Documented On 04/08/2022 6:50AM ; [facility], [facility] Instructions Includes: Instructions from this encounter Instructions to patient Lose weight Last Documented On 11:05AM ; [facility], [facility] Medical Equipment - Implanted Devices Includes: Current Devices No Medical Equipment Recorded Medications Includes: Medications discussed during this encounter and other current Medications Discontinued / Stopped on this date CHELSEY JUDGE on 09/04/2021 hydroCHLOROthiazide 25 MG Oral Tablet Pro vider: CHELSEY JUDGE Diagnosis: Last Documented On 11:08AM By Karma Dia ; [facility], [facility] Current Medications (continue as prescribed) Cephalexin 500 MG Oral Tablet 03/04/2022 Provider: Diagnosis: Last Documented On 2 1:43PM By Karma Dia ; [facility] Meloxicam 15 MG Oral Tablet 09/16/2021 Provider: VINAY BLANCO MD Diagnosis: Last Documented On 2 1:00PM By Nickie Max ; [facility] Pravastatin Sodium 40 MG Oral Tablet 09/06/2021 Prov ider: VINAY BLANCO MD Diagnosis: Last Documented On 2 1:00PM By Nickie Max ; [facility] traZODone HCl 50 MG Oral Tablet 08/24/2021 Provider: CHELSEY JUDGE Diagnosis: Last Documented On 2 1:00PM By Nickie Max ; [facility], [facility] Verapamil HCl 120 MG Oral Tablet 08/24/2021 Provider : CHELSEY JUDGE Diagnosis: Last Documented On 2 1:00PM By Nickie Max ; [facility], [facility] Fenofibrate 145 MG Oral Tablet 08/22/2021 Provider: VINAY BLANCO MD Diagnosis: Last Documented On 2 1:00PM By Nickie Max ; [facility] Synthroid 75 MCG Oral Tablet 08/22/2021 Provider: VINAY BLANCO MD Diagnosis: Last Documented On 2 1:00PM By Nickie Max ; [facility], [facility] Ursodiol 300 MG Oral Capsule 08/18/2021 Provider: CHELSEY JUDGE Diagnosis: Last Documented On 2 1:00PM By Nickie Max ; [facility] Past Medications on file Percocet 5-325 MG Oral Tablet 01/18/2022 - 02/02/2022 Provider: Cem Amado MD Diagnosis: 1 po q 4h prn pain Last Documented On 2 2:12PM By Cem Amado ; [facility] Medications Administered Includes: Administered Medications from this encounter No Administered Medications Recorded Vital Signs Includes: Vital Signs from this encounter Vital Name 02/18/2022 11:05A Blood Pressure Sitting (mmHg) 147/70 Pulse Rate-Sitting (bpm) 72 Height (in) 62 Weight (lb) 175 Body Mass Index (kg/m2) 32.0 Body Surface Area (m2) 1.8 Note: kns Last Documented: On 02/18/2022 11:07A M ; [facility] Results Includes: Results discussed during this encounter No Results Recorded For Specified Dates History of Present Illness Includes: History of Present Illness from this encounter MADISON Mcneal is an 81 year old female. - Allergy list reviewed - Problem list reviewed - Medication list reviewed with patient Follow-up on her L4-5 decompression on the left side she subsequently then developed fluid collection on the left she says this she has good and bad days so far. She still has some pain with the left buttock and left anterior barrera with walking. She has some new complaints of pain behind the left knee and she has been having some swelling with the right lower extremity she says while she was in the hospital they took her off her HCTZ. Social History Description Last Updated Tobacco non-user 04/16/2022 Last Documented On 2 11:05AM ; [facility] No tobacco use 12/20/2021 Last Documented On 11:05AM ; [facility] Not a smoker 12/03/2021 Last Documented On 2 11:05AM ; [facility] Caffeine use 09/21/2021 Last Documented On 2 11:05AM ; [facility] No recent change in diet 09/21/2021 Last Documented On 2 11:05AM ; [facility] Not a current smoker. 09/21/2021 Last Documented On 2 11:05AM ; [facility] Not exercising regularly 09/21/2021 Last Documented On 2 11:05AM ; [facility] Not using alcohol 09/21/2021 Last Documented On 2 11:05AM ; [facility] Not using drugs 09/21/2021 Last Documented On 2 11:05AM ; [facility] Former smoker 09/21/2021 Last Documented On 2 11:05AM ; [facility] Never drank alcohol 09/21/2021 Last Documented On 2 11:05AM ; [facility] Never used drugs 09/21/2021 Last Documented On 2 11:05AM ; [facility] Non-smoker 09/21/2021 Last Documented On 2 11:05AM ; [facility] Smoking Status Unknown Procedures and Surgical History Includes: Procedures from this encounter Procedures Code Diagnosis Performing Provider Service L ocation Service Date use of tobacco assessment performed 1000F Last Documented On 2 11:05AM ; [facility] no influenza immunization patient refuse d Last Documented On 2 11:05AM ; [facility] patient screened for future fall risk 3288F Last Documented On 2 11:05AM ; [facility] patient screened for future fall risk: documentation of any fall with injury in past year 1100F Last Documented On 2 11:05AM ; [facility] follow-up visit in one month Last Documented On 2 6:50AM ; [facility] referral to physician Last Documented On 2 6:50AM ; [facility] an X-ray was performed 18610 Last Documented On 2 11:05AM ; [facility] Surgical History Last Updated History of heart surgery 09/21/2021 Last Documented On 2 11:05AM ; [facility] History of History of Gallbladder 2021 Last Documented On 2 11:05AM ; [facility] History of hysterectomy 09/21/2021 Last Documented On 2 11:05AM ; [facility], [facility] History of shoulder arthroplasty 022 Last Documented On 11:05AM ; [facility] Medical History Includes: Medical History addressed during this encounter Description Last Updated Past Surgical History: uteri n suspension ~breast biopsy ~bladder biopsy ~bladder and urethra stretch ~heart cath ~gastric bypass ~cateracts ~skin cancer ~Edge procedure 09/21/2021 Last Documented On 2 11:05AM ; [facility] History of asthma 09/21/2021 Last Documented On 2 11:05AM ; [facility], [facility] History of diverticulitis of colon 09/21 Last Documented On 2 11:05AM ; [facility], [facility] History of gastric ulcer 09/21/2021 Last Documented On 2 11:05AM ; [facility], [facility] History of heart disease 09/21/2021 Last Documented On 2 11:05AM ; [facility] History of History of Blood Clots 2021 Last Documented On 2 11:05AM ; [facility] History of History of Heart Attack / Str stephanie 09/21/2021 Last Documented On 2 11:05AM ; [facility] History of Hypertension 09/21/2021 Last Documented On 2 11:05AM ; [facility] History of Irregular Heartbeat Last Documented On 2 11:05AM ; [facility] History of Kidney Disease 09/21/2021 Last Documented On 2 11:05AM ; [facility] History of Thyroid Disease 09/21/2021 Last Documented On 2 11:05AM ; [facility] No recent immunization for flu 2 Last Documented On 2 11:05AM ; [facility] No recent immunization for pneumococcal pneumonia 09/21/2021 Last Documented On 2 11:05AM ; [facility] Family History Includes: Family History addressed during this encounter Description Last Updated Diabetes mellitus 09/21/2021 Last Documented On 2 11:05AM ; [facility] Family history of cancer 09/21/2021 Last Documented On 2 11:05AM ; [facility] Family history of osteoporosis 2 Last Documented On 2 11:05AM ; [facility] Family history of rheumatoid arthritis 0 09/21/2021 Last Documented On 2 11:05AM ; [facility] Family history of systemic hypertension 09/21/2021 Last Documented On 2 11:05AM ; [facility] Fraternal history of diabetes mellitus 0 09/21/2021 Last Documented On 2 11:05AM ; [facility] Fraternal history of family history of c ancer 09/21/2021 Last Documented On 2 11:05AM ; [facility] Fraternal history of family history of h eart disease 09/21/2021 Last Documented On 2 11:05AM ; [facility] Fraternal history of osteoporosis 2021 Last Documented On 2 11:05AM ; [facility] Fraternal history of systemic hypertensi on 09/21/2021 Last Documented On 2 11:05AM ; [facility] Maternal grandfather's history of family history of heart disease 09/21/2021 Last Documented On 2 11:05AM ; [facility] Maternal grandfather's history of system ic hypertension 09/21/2021 Last Documented On 2 11:05AM ; [facility] Maternal history of family history of he art disease 09/21/2021 Last Documented On 2 11:05AM ; [facility] Maternal history of osteoporosis 022 Last Documented On 2 11:05AM ; [facility] Maternal history of rheumatoid arthritis 09/21/2021 Last Documented On 2 11:05AM ; [facility] Maternal history of systemic hypertensio n 09/21/2021 Last Documented On 2 11:05AM ; [facility] Paternal grandfather's history of family history of heart disease 09/21/2021 Last Documented On 2 11:05AM ; [facility] Paternal history of family history of he art disease 09/21/2021 Last Documented On 2 11:05AM ; [facility] Paternal history of systemic hypertensio n 09/21/2021 Last Documented On 2 11:05AM ; [facility] Sororal history of diabetes mellitus Last Documented On 2 11:05AM ; [facility] Sororal history of family history of can cer 09/21/2021 Last Documented On 2 11:05AM ; [facility] Sororal history of family history of hea rt disease 09/21/2021 Last Documented On 2 11:05AM ; [facility] Sororal history of systemic hypertension 09/21/2021 Last Documented On 2 11:05AM ; [facility] Review of Systems Includes: Review of [...] Active Last Documented On 2 1:42PM ; [facility] Sulfa Antibiotics Allergy 09/21/2021 A ctive Last Documented On 2 1:42PM ; [facility] penicillAMINE Allergy 09/21/2021 Activ e Last Documented On 2 1:42PM ; [facility] [place] Allergy 09/21/2021 Active Last Documented On 2 1:42PM ; [facility] Latex Allergy 09/21/2021 Active Last Documented On 2 1:42PM ; [facility] Erythromycin Allergy 09/21/2021 Active Last Documented On 2 1:42PM ; [facility] Cortisone Shots Allergy 09/21/2021 Act ron Last Documented On 2 1:42PM ; [facility] Claritin Allergy 09/21/2021 Active Last Documented On 2 1:42PM ; [facility] Ciprofloxacin Allergy 09/21/2021 Activ e Last Documented On 2 1:42PM ; [facility] Atenolol Allergy 09/21/2021 Active Last Documented On 2 1:42PM ; [facility] Encounters Encounter Provider Location Date Check-In Time Check- Out Time Diagnosis [facility] 2 10:33AM 11:42AM Insurance Includes: Active Insurance Policies Plan Name Member ID Group # Subscriber Relationship Effect ron Dates 1 - [facility] /MEDICARE [id number] Dianne Mcneal Self 05/02/2021 - Unknown Clinical Notes Includes: Clinical Notes from this encounter No Clinical Notes Recorded
--- OUTSIDE RECORDS SUMMARY | 2023-09-03 15:35 | XMS_ITS | Continuity of Care Document ---
Author Name Unknown Address [address] [place] [phone] Organization [facility] Phone Care Team Providers Care Medicine Assistant Name Role Phone SUNI JEAN Admitting HAROLDO WAN Primary Care SUNI JEAN Unavailable SUNI JEAN Primary Attending MEDICATIONS HOME MEDICATIONS Status RXNORM Medication Dose Route Frequency Dates Comments R eported By Updated By Drug Treatment Unknown DISCHARGE MEDICATIONS Status RXNORM Medication Dose Route Frequency Dates Comments Physic chayo Updated By No Discharge Medication Info rmation Available INPATIENT MEDICATIONS Status RXNORM Medication Dose Route Frequency Rate Quantity Dates Comments Physician Updated By No Inpatient Medication Info rmation Available SOCIAL HISTORY SOCIAL HISTORY SNOMED-CT Social History Element Description Effective Dates Offered Cessation Comment UpdatedBy [id number] Smoking Status Unknown If Ever Smoked SOCIAL HISTORY - Gender Sex: Female SOCIAL HISTORY - Sexual Behavior Sexual Orientation Gender Identity SNOMED-CT Description SNO MED -CT Description Activity Level No of Partners Partner Type UpdatedBy Information is not available HEALTH CONCERNS Problems Concern Status Health Concern problem infor mation not available. Smoking Status Status Years Used Consumed packs p er day Health Concern smoking histo ry information not available. Family History Concern Status Health Concern family histor y information not available. ENCOUNTERS ENCOUNTER INFORMATION Reason for Visit Not Specified Admission June 20, 2023 12:31:[address] [address] Discharge June 20, 2023 12:31:00 PM [facility] DISCHARGED TO HOME OR SELF CARE ENCOUNTER DIAGNOSES Notes information is not mello ilable. Code System Diagnosis Onset Date Diagnosis information is not available. 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 [id number] on June 21, 2023 11:55:27 AM [facility] J45.909 ICD10 UNSPECIFIED ASTHMA, UNCOMPLI CATED [id number] on June 21, 2023 11:55:27 AM [facility] CARE TEAM Care Medicine Assistant Role SUNI JEAN Admitting HAROLDO WAN Primary Care SUNI JEAN Referring SUNI JEAN Primary Attending CARE TEAM CARE nursing education consultant Role on Team Status Start Date End Date Update d By SOCO ZARCO APRN PCP normal June 06, 2023 5:02:11 PM [facility] June 19, 2023 5:00:00 AM [place] [id number] on June 06, 2023 5:02:11 PM [facility] MIRANDA CULP APRN Referring normal June 06, 2023 5:02:11 PM [facility] June 19, 2023 5:00:00 AM [place] [id number] on June 06, 2023 5:02:11 PM [facility] MIRANDA CULP APRN Attending normal June 06, 2023 5:02:11 PM [facility] June 19, 2023 5:00:00 AM [place] [id number] on June 06, 2023 5:02:11 PM [facility] MIRANDA CULP APRN Admitting normal June 06, 2023 5:02:11 PM [facility] June 19, 2023 5:00:00 AM [facility] [id number] on June 06, 2023 5:02:11 PM [facility]
--- OUTSIDE RECORDS SUMMARY | 2023-09-03 15:35 | XMS_ITS | Continuity of Care Document ---
Author Name Unknown Address [address] [place] [id number] Organization [facility] Phone Care Team Providers Care Sales Development Representative Name Role Phone SUNI JEAN Admitting HAROLDO [...] Description Effective Dates Offered Cessation Comment UpdatedBy [id number] Smoking Status Unknown If Ever Smoked SOCIAL [...] Specified Admission June 20, 2023 12:31:[address] [address] Discharge June 20, 2023 12:31:00 PM [facility] DISCHARGED TO HOME OR SELF CARE ENCOUNTER DIAGNOSES Notes information is not mello ilable. Code System Diagnosis Onset Date Diagnosis information is not available. ABSTRACT DIAGNOSES Code System Diagnosis Updated By G47.30 ICD10 SLEEP APNEA, UNSPECIFIED [id number] on June 06, 2023 5:02:11 PM [facility] CARE TEAM Care Sales Development Representative Role SUNI JEAN Admitting HAROLDO WAN Primary Care SUNI JEAN Referring SUNI JEAN Primary Attending CARE TEAM CARE big data engineer Role on Team Status Start Date End Date Update d By SOCO ZARCO APRN PCP normal June 06, 2023 5:02:11 PM [facility] June 20, 2023 12:31:00 PM [facility] [id number] on June 06, 2023 5:02:11 PM [facility] MIRANDA CULP APRN Referring normal June 06, 2023 5:02:11 PM [facility] June 20, 2023 12:31:00 PM [facility] [id number] on June 06, 2023 5:02:11 PM [facility] MIRANDA CULP APRN Attending normal June 06, 2023 5:02:11 PM [facility] June 20, 2023 12:31:00 PM [facility] [id number] on June 06, 2023 5:02:11 PM [facility] MIRANDA CULP APRN Admitting normal June 06, 2023 5:02:11 PM [facility] June 20, 2023 12:31:00 PM [facility] [id number] on June 06, 2023 5:02:11 PM [facility]
--- OUTSIDE RECORDS SUMMARY | 2023-09-03 15:35 | XMS_ITS ---
Care Plan - [facility], [facility] Created on: September 03, 2023 Elizabet Dianne : 1940 Sex: Female Author Name Unknown Address [address] [place] [address] [place] [address] Phone Organization [facility] Address [address] [place] [address] Phone Care Team Providers Care Mixing Place Supervisor Name Role Phone Campbell MAURO, Andrés Cabrera Unavailable [phone] VINAY BLANCO MD Unavailable [phone]
--- OUTSIDE RECORDS SUMMARY | 2023-09-03 15:35 | XMS_ITS | Clinical Summary ---
Author Name Unknown Address [address] [place] [address] [place] [address] Phone Organization [facility] Address [address] [place] [address] Phone Care Team Providers Care Planimeter Operator Name Role Phone Campbell MAURO, Andrés Cabrera Unavailable [phone] VINAY BLANCO MD Unavailable [phone] Reason for Visit and Chief Complaint The Chief Complaint is: low back pain Problems Includes: Problems addressed during this encounter and other active Problems Current Visit Onset Date Resolved Date Provider Watson guzman Status Lower Back Pain 09/21/2021 Arthur Ramos PA-C A ctive Last Documented On 12:57PM ; [facility] Plan of Treatment Fall Risk Assessment: This [...] - Last Documented On 02/14/2022 10:30AM ; [facility] Instructions to patient No intervention and counseli ng on cessation of tobacco use Last Documented On 2 1:33PM ; [facility] Lose weight Last Documented On 2 1:33PM ; [facility] Assessments Includes: Assessments from this encounter No Assessments Recorded Instructions Includes: Instructions from this encounter Instructions to patient No intervention and counseli ng on cessation of tobacco use Last Documented On 2 1:33PM ; [facility] Lose weight Last Documented On 2 1:33PM ; [facility] Medical Equipment - Implanted Devices Includes: Current Devices No Medical Equipment Recorded Medications Includes: Medications discussed during this encounter and other current Medications Current Medications (continue as prescribed) Cephalexin 500 MG Oral Tablet 03/04/2022 Provider: Diagnosis: Last Documented On 2 1:43PM By Karma Dia ; [facility] Meloxicam 15 MG Oral Tablet 09/16/2021 Provider: VINAY BLANCO MD Diagnosis: Last Documented On 2 1:00PM By Nickie Max ; [facility] Pravastatin Sodium 40 MG Oral Tablet 09/06/2021 Prov ider: VINAY BLANCO MD Diagnosis: Last Documented On 2 1:00PM By Nickie Max ; [facility] traZODone HCl 50 MG Oral Tablet 08/24/2021 Provider: CHELSEY JUDGE Diagnosis: Last Documented On 2 1:00PM By Nickie Max ; [facility] Verapamil HCl 120 MG Oral Tablet 08/24/2021 Provider : CHELSEY JUDGE Diagnosis: Last Documented On 2 1:00PM By Nickie Max ; [facility] Fenofibrate 145 MG Oral Tablet 08/22/2021 Provider: VINAY BLANCO MD Diagnosis: Last Documented On 2 1:00PM By Nickie Max ; [facility] Synthroid 75 MCG Oral Tablet 08/22/2021 Provider: VINAY BLANCO MD Diagnosis: Last Documented On 2 1:00PM By Nickie Max ; [facility] Ursodiol 300 MG Oral Capsule 08/18/2021 Provider: CHELSEY JUDGE Diagnosis: Last Documented On 2 1:00PM By Nickie Max ; [facility] Past Medications on file Percocet 5-325 MG Oral Tablet 01/18/2022 - 02/02/2022 Provider: Cem Amado MD Diagnosis: 1 po q 4h prn pain Last Documented On 2 2:12PM By Cem Amado ; [facility] Medications Administered Includes: Administered Medications from this encounter No Administered Medications Recorded Vital Signs Includes: Vital Signs from this encounter Vital Name 02/04/2022 01:33P Blood Pressure Sitting (mmHg) 113/61 Pulse Rate-Sitting (bpm) 93 Height (in) 62 Weight (lb) 175 Body Mass Index (kg/m2) 32.0 Body Surface Area (m2) 1.8 Note: kns Last Documented: On 02/04/2022 1:34PM ; [facility] Results Includes: Results discussed during this encounter No Results Recorded For Specified Dates History of Present Illness Includes: History of Present Illness from this encounter MADISON Mcneal is an 81 year old female. - Allergy list reviewed - Problem list reviewed - Medication list reviewed with patient Social History Description Last Updated Tobacco non-user 04/16/2022 Last Documented On 2 1:33PM ; [facility] No tobacco use 12/20/2021 Last Documented On 2 1:33PM ; [facility] Not a smoker 12/03/2021 Last Documented On 2 1:33PM ; [facility] Caffeine use 09/21/2021 Last Documented On 2 1:33PM ; [facility] No recent change in diet 09/21/2021 Last Documented On 2 1:33PM ; [facility] Not a current smoker. 09/21/2021 Last Documented On 2 1:33PM ; [facility] Not exercising regularly 09/21/2021 Last Documented On 2 1:33PM ; [facility] Not using alcohol 09/21/2021 Last Documented On 2 1:33PM ; [facility] Not using drugs 09/21/2021 Last Documented On 2 1:33PM ; [facility] Former smoker 09/21/2021 Last Documented On 2 1:33PM ; [facility] Never drank alcohol 09/21/2021 Last Documented On 2 1:33PM ; [facility] Never used drugs 09/21/2021 Last Documented On 2 1:33PM ; [facility] Non-smoker 09/21/2021 Last Documented On 2 1:33PM ; [facility] Smoking Status Unknown Procedures and Surgical History Includes: Procedures from this encounter Procedures Code Diagnosis Performing Provider Service L ocation Service Date no intervention and counseling on cessation of tobacco use 4000F Last Documented On 2 1:33PM ; [facility] use of tobacco assessment performed 1000F Last Documented On 2 1:33PM ; [facility] no influenza immunization patient refuse d Last Documented On 2 1:33PM ; [facility] patient screened for future fall risk 3288F Last Documented On 2 1:33PM ; [facility] patient screened for future fall risk: documentation of any fall with injury in past year 1100F Last Documented On 2 1:33PM ; [facility] follow-up visit in one month with PCP fo r elevated BP Last Documented On 2 1:33PM ; [facility] an X-ray was performed 00790 Last Documented On 2 1:33PM ; [facility] Surgical History Last Updated History of heart surgery 09/21/2021 Last Documented On 2 1:33PM ; [facility] History of History of Gallbladder 2021 Last Documented On 2 1:33PM ; [facility] History of hysterectomy 09/21/2021 Last Documented On 2 1:33PM ; [facility] History of shoulder arthroplasty 022 Last Documented On 2 1:33PM ; [facility] Medical History Includes: Medical History addressed during this encounter Description Last Updated Past Surgical History: uteri n suspension ~breast biopsy ~bladder biopsy ~bladder and urethra stretch ~heart cath ~gastric bypass ~cateracts ~skin cancer ~Edge procedure 09/21/2021 Last Documented On 2 1:33PM ; [facility] History of asthma 09/21/2021 Last Documented On 2 1:33PM ; [facility] History of diverticulitis of colon 09/21 Last Documented On 2 1:33PM ; [facility] History of gastric ulcer 09/21/2021 Last Documented On 2 1:33PM ; [facility] History of heart disease 09/21/2021 Last Documented On 2 1:33PM ; [facility] History of History of Blood Clots 2021 Last Documented On 2 1:33PM ; [facility] History of History of Heart Attack / Str stephanie 09/21/2021 Last Documented On 2 1:33PM ; [facility] History of Hypertension 09/21/2021 Last Documented On 2 1:33PM ; [facility] History of Irregular Heartbeat 2 Last Documented On 2 1:33PM ; [facility] History of Kidney Disease 09/21/2021 Last Documented On 2 1:33PM ; [facility] History of Thyroid Disease 09/21/2021 Last Documented On 2 1:33PM ; [facility] No recent immunization for flu 2 Last Documented On 2 1:33PM ; [facility] No recent immunization for pneumococcal pneumonia 09/21/2021 Last Documented On 2 1:33PM ; [facility] Family History Includes: Family History addressed during this encounter Description Last Updated Diabetes mellitus 09/21/2021 Last Documented On 2 1:33PM ; [facility] Family history of cancer 09/21/2021 Last Documented On 2 1:33PM ; [facility] Family history of osteoporosis 2 Last Documented On 2 1:33PM ; [facility] Family history of rheumatoid arthritis 0 09/21/2021 Last Documented On 2 1:33PM ; [facility] Family history of systemic hypertension 09/21/2021 Last Documented On 2 1:33PM ; [facility] Fraternal history of diabetes mellitus 0 09/21/2021 Last Documented On 2 1:33PM ; [facility] Fraternal history of family history of c ancer 09/21/2021 Last Documented On 2 1:33PM ; [facility] Fraternal history of family history of h eart disease 09/21/2021 Last Documented On 2 1:33PM ; [facility] Fraternal history of osteoporosis 2021 Last Documented On 2 1:33PM ; [facility] Fraternal history of systemic hypertensi on 09/21/2021 Last Documented On 2 1:33PM ; [facility] Maternal grandfather's history of family history of heart disease 09/21/2021 Last Documented On 2 1:33PM ; [facility] Maternal grandfather's history of system ic hypertension 09/21/2021 Last Documented On 2 1:33PM ; [facility] Maternal history of family history of he art disease 09/21/2021 Last Documented On 2 1:33PM ; [facility] Maternal history of osteoporosis 022 Last Documented On 2 1:33PM ; [facility] Maternal history of rheumatoid arthritis 09/21/2021 Last Documented On 2 1:33PM ; [facility] Maternal history of systemic hypertensio n 09/21/2021 Last Documented On 2 1:33PM ; [facility] Paternal grandfather's history of family history of heart disease 09/21/2021 Last Documented On 2 1:33PM ; [facility] Paternal history of family history of he art disease 09/21/2021 Last Documented On 2 1:33PM ; [facility] Paternal history of systemic hypertensio n 09/21/2021 Last Documented On 2 1:33PM ; [facility] Sororal history of diabetes mellitus Last Documented On 2 1:33PM ; [facility] Sororal history of family history of can cer 09/21/2021 Last Documented On 2 1:33PM ; [facility] Sororal history of family history of hea rt disease 09/21/2021 Last Documented On 2 1:33PM ; [facility] Sororal history of systemic hypertension 09/21/2021 Last Documented On 2 1:33PM ; [facility] Review of Systems Includes: Review of Systems [...] Active Last Documented On 2 1:42PM ; [facility] Sulfa Antibiotics Allergy 09/21/2021 A ctive Last Documented On 2 1:42PM ; [facility] penicillAMINE Allergy 09/21/2021 Activ e Last Documented On 2 1:42PM ; [facility] [place] Allergy 09/21/2021 Active Last Documented On 2 1:42PM ; [facility] Latex Allergy 09/21/2021 Active Last Documented On 2 1:42PM ; [facility] Erythromycin Allergy 09/21/2021 Active Last Documented On 2 1:42PM ; [facility] Cortisone Shots Allergy 09/21/2021 Act ron Last Documented On 2 1:42PM ; [facility] Claritin Allergy 09/21/2021 Active Last Documented On 2 1:42PM ; [facility] Ciprofloxacin Allergy 09/21/2021 Activ e Last Documented On 2 1:42PM ; [facility] Atenolol Allergy 09/21/2021 Active Last Documented On 2 1:42PM ; [facility] Encounters Encounter Provider Location Date Check-In Time Check- Out Time Diagnosis Post Op Cem Amado MD [facility] 2 1:28PM 1:49PM Insurance Includes: Active Insurance Policies Plan Name Member ID Group # Subscriber Relationship Effect ron Dates 1 - [facility] /MEDICARE [id number] Dianne Mcneal Self 05/02/2021 - Unknown Clinical Notes Includes: Clinical Notes from this encounter No Clinical Notes Recorded
--- OUTSIDE RECORDS SUMMARY | 2023-09-03 15:35 | XMS_ITS | Clinical Summary ---
Author Name Unknown Address [address] [place] [address] [place] [address] Phone Organization [facility] Address [address] [place] [address] Phone Care Team Providers Care Social Scientist Name Role Phone Campbell MAURO, Andrés Cabrera Unavailable [phone] BELLA MAURO, VINAY Fisher Unavailable [phone] Reason for Visit and Chief Complaint [facility] Problems Includes: Problems addressed during this encounter and other active Problems All Visits Onset Date Resolved Date Provider Condition S tatus Lower Back Pain 09/21/2021 Arthur Almanza ctive Last Documented On 2 12:57PM ; [facility] Plan of Treatment No Plan of Treatment Recorded Assessments Includes: Assessments from this encounter No Assessments Recorded Medical Equipment - Implanted Devices Includes: Current Devices No Medical Equipment Recorded Medications Includes: Medications discussed during this encounter and other current Medications Current Medications (continue as prescribed) Cephalexin 500 MG Oral Tablet 03/04/2022 Provider: Diagnosis: Last Documented On 2 1:43PM By Karma Swanson [facility] Meloxicam 15 MG Oral Tablet 09/16/2021 Provider: VINAY BLANCO MD Diagnosis: Last Documented On 2 1:00PM By Nickie Swanson [facility] Pravastatin Sodium 40 MG Oral Tablet 09/06/2021 Prov ider: VINAY BLANCO MD Diagnosis: Last Documented On 2 1:00PM By Nickie Swanson [facility] traZODone HCl 50 MG Oral Tablet 08/24/2021 Provider: CHELSEY JUDGE Diagnosis: Last Documented On 2 1:00PM By Nickie Max ; [facility] Verapamil HCl 120 MG Oral Tablet 08/24/2021 Provider : CHELSEY JUDGE Diagnosis: Last Documented On 2 1:00PM By Nickie Max ; [facility] Fenofibrate 145 MG Oral Tablet 08/22/2021 Provider: VINAY BLANCO MD Diagnosis: Last Documented On 2 1:00PM By Nickie Max ; [facility] Synthroid 75 MCG Oral Tablet 08/22/2021 Provider: VINAY BLANCO MD Diagnosis: Last Documented On 2 1:00PM By Nickie Max ; [facility] Ursodiol 300 MG Oral Capsule 08/18/2021 Provider: CHELSEY JUDGE Diagnosis: Last Documented On 2 1:00PM By Nickie Max ; [facility] Medications Administered Includes: Administered Medications from this encounter No Administered Medications Recorded Results Includes: Results discussed during this encounter No Results Recorded For Specified Dates History of Present Illness Includes: History of Present Illness from this encounter No History of Present Illness Recorded Social History No Social History Recorded - Smoking Status Unknown Medical History Includes: Medical History addressed during this encounter No Medical History Recorded Family History Includes: Family History addressed during this encounter No Family History Recorded Review of Systems Includes: Review of Systems from this encounter No Review of Systems Recorded Mental Status Includes: Mental Status from this encounter No Mental Status Recorded Functional Status Includes: Functional Status from this encounter No Functional Status Recorded Physical Exam Includes: Physical Exam from this encounter No Physical Exam Recorded Allergies Includes: Active Allergies Substance Type Reaction Onset Date Resolved Date Statu s Tylenol Extra Strength Allergy 09/21/2021 Active Last Documented On 2 1:42PM ; [facility] Sulfa Antibiotics Allergy 09/21/2021 A ctive Last Documented On 2 1:42PM ; [facility] penicillAMINE Allergy 09/21/2021 Activ e Last Documented On 2 1:42PM ; [facility] Morse Allergy 09/21/2021 Active Last Documented On 2 1:42PM ; [facility] Latex Allergy 09/21/2021 Active Last Documented On 2 1:42PM ; [facility] Erythromycin Allergy 09/21/2021 Active Last Documented On 2 1:42PM ; [facility] Cortisone Shots Allergy 09/21/2021 Act ron Last Documented On 2 1:42PM ; [facility] Claritin Allergy 09/21/2021 Active Last Documented On 2 1:42PM ; [facility] Ciprofloxacin Allergy 09/21/2021 Activ e Last Documented On 2 1:42PM ; [facility] Atenolol Allergy 09/21/2021 Active Last Documented On 2 1:42PM ; [facility] Encounters Encounter Provider Location Date Check-In Time Check-Out Time Diagnosis [facility] Cem Amado MD Surgery 2 01/21/2022 10:26AM 11:59PM Insurance Includes: Active Insurance Policies Plan Name Member ID Group # Subscriber Relationship Effect ron Dates 1 - [facility] /MEDICARE [id number] Dianne Mcneal Self 05/02/2021 - Unknown Clinical Notes Includes: Clinical Notes from this encounter No Clinical Notes Recorded
--- NOTE | 2023-09-03 17:26 | PC.NURSE ---
A&OX4. PT HAS TOLERATED RA WELL THROUGHOUT SHIFT. RESPIRATIONS REGULAR AND UNLABORED. LUNG SOUNDS CLEAR THROUGHOUT. NO EDEMA NOTED. ACTIVE BOWEL SOUNDS HEARD IN ALL 4 QUADRANTS. SOFT AND TENDER. NO BM THUS FAR. ADVANCED FROM NPO TO CLEAR LIQUID DIET TOLERATING WELL. ADMINISTERED MORPHINE PER MAR THREE TIMES THIS SHIFT AND ON REASSESSMENT, PT DENIED PAIN. HAND WAIST CUTTER EQUAL. +1 PULSES NOTED THROUGHOUT. DAUGHTER DID VISITOR EARLIER IN THE SHIFT. HEART RATE REGULAR. BED IN LOWEST POSITION. CALL LIGHT WITHIN REACH. VOIDS PER BATHROOM WITH STANDBY ASSISTANCE. CLEAR YELLOW URINE NOTED.
[2023-09-03] MEDS: 0.9 % SODIUM CHLORIDE 1000ML 1,000 ML 50 ML IV (18:25)
[2023-09-03 20:00] VITALS: BP 156/71; PULSE 89; RESP 20; TEMP 37.3; O2SAT 94
[2023-09-03] MEDS: ONDANSETRON 4MG/2ML VIAL 4 MG IV (20:40)
[2023-09-04 04:00] VITALS: BP 181/94; PULSE 105; RESP 20; TEMP 37.4; O2SAT 95; BMI 36.6
--- NOTE | 2023-09-04 04:20 | PC.NURSE ---
Pt is alert and oriented x4 and tolerates RA well. Pt c/o pain at the beginning of the shift and was treated per JUN. Pt has slept well this shift and offers no other complaints aside from pain.
[2023-09-04] MEDS: MORPHINE 2MG/ML SYRINGE 2 MG IV ×4 (04:50→21:53)
[2023-09-04] MEDS: diphenhydrAMINE 50MG/ML VIAL 25 MG IV ×2 (04:50→21:58)
[2023-09-04] MEDS: ONDANSETRON 4MG/2ML VIAL 4 MG IV (07:52)
[2023-09-04] MEDS: PANTOPRAZOLE 40MG TABLET 40 MG PO (07:55)
[2023-09-04 08:00] VITALS: BP 144/76; PULSE 79; RESP 16; TEMP 36.6; O2SAT 97
--- NOTE | 2023-09-04 14:58 | EXP.PN ---
Subjective *Date: 09/04/23 *Time: 14:58 Interval history: seen at bedside, mentions her abdominal pain is better than yesterday Exam Data for Last 24 hours Vital signs and Labs for Last 24 Hours: Temp Pulse Resp BP Pulse Ox O2 Del Method 97.9 F 79 16 144/76 H 97 Room Air 09/04/23 08:00 09/04/23 08:00 09/04/23 08:00 09/04/23 08:00 09/04/23 08:00 09/04/23 13:00 I & O for Last 24 hours: Intake & Output 09/01/23 09/02/23 09/03/23 09/04/23 23:59 23:59 23:59 23:59 Intake Total 2907 / 3397 189 / 1890 Output Total 0 / 0 0 / 0 Balance 2907 / 3397 1889 / 1890 Weight 84.368 kg 84.623 kg 84.626 kg Constitutional Constitutional: no acute distress *Routine HEENT Exam Head: Present normocephalic Eye: Present EOMI and PERRL ENT: Present mucous membranes moist *Routine Neck Exam Neck: Present supple; Absent lymphadenopathy *Routine Respiratory Exam Respiratory: Present CTA bilaterally *Routine Cardiovascular Exam Cardiovascular: Present RRR *Routine Abdominal Exam Abdominal: Present soft, normoactive bowel sounds and tenderness Comments: has epigastric tenderness *Routine Extremities Exam Extremities: Absent cyanosis, clubbing or edema *Routine Skin Exam Skin: Present warm; Absent rash *Routine Neurological Exam Neurological: Present alert and oriented X3 Assessment and Plan *Assessment and plan (1) Acute pancreatitis: Status: Acute Qualifiers: Acute pancreatitis complication: no infection or necrosis Pancreatitis type: unspecified pancreatitis type Qualified Code(s): K85.90 - Acute pancreatitis without necrosis or infection, unspecified Category: Medical Code(s): K85.90 - Acute pancreatitis without necrosis or infection, unspecified (2) Acute kidney injury superimposed on CKD: Status: Acute Category: Medical Code(s): N17.9 - Acute kidney failure, unspecified; N18.9 - Chronic kidney disease, unspecified (3) Coronary artery disease: Status: Acute Qualifiers: Coronary Disease-Associated Artery/Lesion type: false pass artery [place] vs. transplanted heart: false pass heart Associated angina: without angina Qualified Code(s): I25.10 - Atherosclerotic heart disease of false pass coronary artery without angina pectoris Category: Medical Code(s): I25.10 - Atherosclerotic heart disease of false pass coronary artery without angina pectoris (4) HTN (hypertension): Status: Acute Qualifiers: Hypertension type: unspecified Qualified Code(s): I10 - Essential (primary) hypertension Category: Medical Code(s): I10 - Essential (primary) hypertension (5) Hypothyroid: Status: Acute Qualifiers: Hypothyroidism type: unspecified Qualified Code(s): E03.9 - Hypothyroidism, unspecified Category: Medical Code(s): E03.9 - Hypothyroidism, unspecified Plan 82-year-old female PMHx of hypertension, hyperlipidemia, CAD status post stenting, renal artery stenosis status post stenting, CKD, hysterectomy, cholecystectomy, gastric bypass presenting with abdominal pain. on arrival patient hemodinamically stable. physical exam of abdomen tenderness on the epigastrium. Labs was obtained leukocytosis 11.8 without neutrophilia. Chemistry with mild hyponatremia, hyperkalemia, KACY creatinine 1.9 and BUN 67. Patient was given fluids for this. Lipase elevated at almost 3000. Urinalysis clear.. CTA of the abdomen and pelvis without acute mesenteric. Pancreatic fat stranding concerning for pancreatitis. Findings discussed with ED. Agreed for admission. Plan as follow: Acute pancreatitis: no Infection or necrosis suspected. will deferred use of abx for now start on full liquid diet pain management. patient previously tolerating morphine for pain zofran foir nauseas and vomiting cont IV hydration repeat daily labs monitor for sepsis and acute abdomen VS per unit protocols -KACY-on CKD: - improving on IV NS for maintenance avoid nephrotoxic medication monitor CAD, HT, HLD, Hypothyroid: resume home meds on synthroid plavix , aspirin and statin DNR continue IV fluids, advance to full liquid diet today, advance as tolerated
[2023-09-04 15:50] VITALS: BP 172/84; PULSE 78; RESP 16; TEMP 36.6; O2SAT 97
[2023-09-04] MEDS: ACETAMINOPHEN 325MG TAB 650 MG PO (17:34)
[2023-09-04] MEDS: 0.9 % SODIUM CHLORIDE 1000ML 1,000 ML 50 ML IV (17:35)
[2023-09-04 20:00] VITALS: BP 151/56; PULSE 73; RESP 20; TEMP 36.9; O2SAT 98
[2023-09-05] MEDS: ACETAMINOPHEN 325MG TAB 650 MG PO ×3 (00:21→20:34)
[2023-09-05] MEDS: MORPHINE 2MG/ML SYRINGE 2 MG IV ×3 (02:52→17:30)
[2023-09-05 04:00] VITALS: BP 157/74; PULSE 74; RESP 18; TEMP 36.6; O2SAT 97; BMI 36.6
[2023-09-05 07:51] VITALS: BP 198/77; PULSE 92; RESP 17; TEMP 36.8; O2SAT 97
[2023-09-05] MEDS: PANTOPRAZOLE 40MG TABLET 40 MG PO (08:40)
[2023-09-05 09:42] LABS: Basophils # 0.1 K/mm3 (0-0.2); Basophils % 0.3 % (0.1-2.0); Eosinophils # 0.2 K/mm3 (0.0-0.4); Eosinophils % 1.1 % (0.1-12.0); Hematocrit 30.4 % (37.0-47.0); Hemoglobin 9.8 g/dL (12.2-16.2); Lymphocytes # 2.2 K/mm3 (0.7-4.5); Lymphocytes % 15.1 % (10-50); Mean Corpuscular HGB Conc 32.2 g/dL (31.8-35.4); Mean Corpuscular Hemoglobin 30.1 pg (27.0-31.2); Mean Corpuscular Volume 93.4 fl (81-99); Mean Platelet Volume 8.7 fl (7.4-10.4); Monocytes # 1.7 K/mm3 (0.1-1.0); Monocytes % 11.6 % (1.7-9.3); Neutrophils # 10.5 K/mm3 (1.8-7.8); Platelet Count 238 K/mm3 (142-424); Red Blood Count 3.26 M/mm3 (4.20-5.40); Red Cell Distribution Width 14.9 % (11.5-17.5); White Blood Count 14.5 K/mm3 (4.8-10.8)
[2023-09-05 09:49] LABS: Chloride 103 mmol/L (98-107); Potassium 4.1 mmoL/L (3.5-5.1); Sodium 128 mmol/L (136-145)
[2023-09-05 09:52] LABS: Anion Gap 7.1 mEq/L (5-15); Blood Urea Nitrogen 26 mg/dl (7-17); Carbon Dioxide 22 mmol/L (22.0-30.0); Creatinine Clearance Estimated 39 mL/min (50-200); Estimated Glomerular Filt Rate 33 ml/min (>60); GFR (African American) 40 ML/MIN (>60)
[2023-09-05 09:53] LABS: Calcium 8.6 mg/dl (8.4-10.2); Glucose 122 mg/dl (74-100)
--- NOTE | 2023-09-05 10:31 | CT_ITS ---
FINAL REPORT TECHNIQUE: Axial images through the abdomen and pelvis were performed without contrast.This study was performed with techniques to keep radiation doses as low as reasonably achievable, (ALARA). Individualized dose reduction techniques using automated exposure control or adjustment of mA and/or kV according to the patient's size were employed. CLINICAL HISTORY: abdominal pain, states hx of pancreatitis COMPARISON: 06/14/2023 FINDINGS: ABDOMEN: There is mild scarring at the lung bases. The heart size is normal. There is fatty infiltration of the liver. Patient is status postcholecystectomy. There is worsening stranding adjacent to the head of the pancreas and uncinate process consistent with worsening, acute pancreatitis. The spleen is normal. No adrenal mass is identified. The aorta is normal in caliber. There is no significant free fluid or adenopathy. There is no nephrolithiasis. There is no hydronephrosis. There are postoperative changes of gastric bypass. Vascular calcifications are noted. PELVIS: The appendix is not identified. Patient is status post hysterectomy. The urinary bladder is unremarkable. There is no significant free fluid or adenopathy. IMPRESSION: Worsening, acute pancreatitis. Reviewed, Interpreted and Dictated by Saroj Valdes III, MD Transcribed by Juanita Newton Authenticated and [facility]
--- NOTE | 2023-09-05 11:26 | P.PN_ITS ---
Subjective *Date: 09/05/23 *Time: 11:26 Interval history: patient is seen at bedside, complains that her abdominal pain has gotten worse and not drinking enough liquids otherwise denied CP, SOB, fevers. complains of nausea, no vomiting Exam Data for Last 24 hours Vital signs and Labs for Last 24 Hours: Temp Pulse Resp BP Pulse Ox O2 Del Method 98.3 F 92 H 17 198/77 H 97 Room Air 09/05/23 07:51 09/05/23 07:51 09/05/23 07:51 09/05/23 07:51 09/05/23 07:51 09/05/23 07:51 Laboratory Results - last 24 hr 09/05/23 09:19: WBC 14.5 H, RBC 3.26 L, Hgb 9.8 L, Hct 30.4 L, MCV 93.4, MCH 30.1, MCHC 32.2, RDW 14.9, Plt Count 238, MPV 8.7, Neut % (Auto) 72.0, Lymph % (Auto) 15.1, [place] % (Auto) 11.6 H, Eos % (Auto) 1.1, Baso % (Auto) 0.3, Neut # (Auto) 10.5 H, Lymph # (Auto) 2.2, [place] # (Auto) 1.7 H, Eos # (Auto) 0.2, Baso # (Auto) 0.1, Sodium 128 L, Potassium 4.1 D, Chloride 103, Carbon Dioxide 22, Anion Gap 7.1, BUN 26 H D, Creatinine 1.50 H D, Estimated Creat Clear 39, Estimated GFR 33 L, Est GFR ( Amer) 40 L D, Glucose 122 H, Calcium 8.6 I & O for Last 24 hours: Intake & Output 09/02/23 09/03/23 09/04/23 09/05/23 23:59 23:59 23:59 23:59 Intake Total 2907 / 3397 2310 / 2310 835 / 835 Output Total 0 / 0 250 / 250 200 / 200 Balance 2907 / 3397 2059 / 2059 635 / 635 Weight 84.368 kg 84.623 kg 84.626 kg 84.626 kg Constitutional Constitutional: no acute distress *Routine HEENT Exam Head: Present normocephalic Eye: Present EOMI and PERRL ENT: Present mucous membranes moist *Routine Neck Exam Neck: Present supple; Absent lymphadenopathy *Routine Respiratory Exam Respiratory: Present CTA bilaterally *Routine Cardiovascular Exam Cardiovascular: Present RRR *Routine Abdominal Exam Abdominal: Present soft, normoactive bowel sounds and tenderness Comments: has epigastric tenderness *Routine Extremities Exam Extremities: Absent cyanosis, clubbing or edema *Routine Skin Exam Skin: Present warm; Absent rash *Routine Neurological Exam Neurological: Present alert and oriented X3 Assessment and Plan *Assessment and plan (1) Acute pancreatitis: Status: Acute Qualifiers: Acute pancreatitis complication: no infection or necrosis Pancreatitis type: unspecified pancreatitis type Qualified Code(s): K85.90 - Acute pancreatitis without necrosis or infection, unspecified Category: Medical Code(s): K85.90 - Acute pancreatitis without necrosis or infection, unspecified (2) Acute kidney injury superimposed on CKD: Status: Acute Category: Medical Code(s): N17.9 - Acute kidney failure, unspecified; N18.9 - Chronic kidney disease, unspecified (3) Coronary artery disease: Status: Acute Qualifiers: Coronary Disease-Associated Artery/Lesion type: [place] artery [place] vs. transplanted heart: [place] heart Associated angina: without angina Qualified Code(s): I25.10 - Atherosclerotic heart disease of [place] coronary artery without angina pectoris Category: Medical Code(s): I25.10 - Atherosclerotic heart disease of [place] coronary artery without angina pectoris (4) HTN (hypertension): Status: Acute Qualifiers: Hypertension type: unspecified Qualified Code(s): I10 - Essential (primary) hypertension Category: Medical Code(s): I10 - Essential (primary) hypertension (5) Hypothyroid: Status: Acute Qualifiers: Hypothyroidism type: unspecified Qualified Code(s): E03.9 - Hypothyroidism, unspecified Category: Medical Code(s): E03.9 - Hypothyroidism, unspecified Plan 82-year-old female PMHx of hypertension, hyperlipidemia, CAD status post stenting, renal artery stenosis status post stenting, CKD, hysterectomy, cholecystectomy, gastric bypass presenting with abdominal pain. on arrival patient hemodinamically stable. physical exam of abdomen tenderness on the epigastrium. Labs was obtained leukocytosis 11.8 without neutrophilia. Chemistry with mild hyponatremia, hyperkalemia, KACY creatinine 1.9 and BUN 67. Patient was given fluids for this. Lipase elevated at almost 3000. Urinalysis clear.. CTA of the abdomen and pelvis without acute mesenteric. Pancreatic fat stranding concerning for pancreatitis. Findings discussed with ED. Agreed for admission. Plan as follow: Acute pancreatitis: no Infection or necrosis suspected. Repeat CT abd pelvis given patient is complaining of worsening abd pain started on full liquid diet yesterday, will reverse to clear liquids now pain management. patient previously tolerating morphine for pain zofran foir nauseas and vomiting cont IV hydration repeat daily labs monitor for sepsis and acute abdomen Leukocytosis - likely reactive, monitor for complications of pancreatitis -KACY-on CKD: - improving on IV NS for maintenance avoid nephrotoxic medication monitor CAD, HT, HLD, Hypothyroid: resume home meds on synthroid plavix , aspirin and statin DNR continue IV fluids, f/u on CT abd pelvis
--- NOTE | 2023-09-05 11:31 | HMH.PTEV ---
Physical Therapy Evaluation Rehab PT IP Evaluation Start: 09/05/23 10:13 Freq: ONCE Status: Active Protocol: Document 09/05/23 11:23 JAMEE (Rec: 09/05/23 11:31 ANGIEJOSHUA [id number]) Subjective/History History History Pt is an 82 y/o female who presented to [facility] on 09/02/23 with complaint of abdominal pain since 09/01/23. Pt states she has pancreatitis and is feeling gassy and nauseous at times. Pt states she is not tolerating eating or drinking well. PHMx: hypertension, hyperlipidemia, CAD status post stenting, renal artery stenosis status post stenting, CKD, hysterectomy, cholecystectomy, gastric bypass Subjective Subjective Pt reports she lives alone in a single story home with 5 steps with HR to enter. Pt reports she uses a rollator for most ambulation and sometimes a cane with household ambulation. Pt denies recent falls. Pt reports she is independent with all ADLs and iADLs. New diagnosis of cancer in past 12 No months? Rehab PT IP Eval Objective Appearance Patient Behavior Appropriate,Cooperative Patient Orientation Person,Place,Name,Birthday, Situation Speech Pattern Clear,Appropriate Ambulation Patient Able to Ambulate Yes Ambulation Observation IP General Gait Pattern Observation Wide Based Gait Ambulation Distance (feet) 30 Ambulation Assistive Device Rolling Walker Ambulation Ability Supervision/Stand by Balance Ability to Arise Able, uses arms to help Sitting Balance Steady, safe Standing Balance Steady, wide stance Dynamic Sitting Balance Ability Good Dynamic Standing Balance Ability Good Transfers Bed Transfer Ability Contact Guard/Hand Hold Sit to Stand Bed Transfer Ability Supervision/Stand by MMT All Extremities PT MMT WFL Rehab PT IP prob,goals,plan Problems Date of Evaluation: 09/05/23 Rehab Potential Rehab Potential Innapropriate for Skilled Therapy Discharge Plan PT Discharge Plan Pt presents at baseline for all functional mobility without inpatient therapy needs at this time. Pt is currently appropriate to d/c home once deemed medically stable by MD. [place] Complexity Ricci Charge Codes 76813 - Moderate Complexity PHYSICIAN CERTIFICATION: I certify the specified therapy services for Dianne Mcneal are required, authorized, and reviewed every 30 days.
--- NOTE | 2023-09-05 11:53 | HMH.OTEV ---
OT Inpatient Evaluation Rehab OT IP Evaluation Start: 09/05/23 10:13 Freq: ONCE Status: Active Protocol: Document 09/05/23 11:47 [facility] (Rec: 09/05/23 11:53 [facility] [id number]) Rehab OT IP Assessment Subjective History Pt oriented x 3 on arrival and agreeable to engage in therapy evaluation. Pt admitted on 09/02/23 due to pancreatitis. History and physical report: This is a 82-year-old female PMHx of hypertension, hyperlipidemia, CAD status post stenting, renal artery stenosis status post stenting, CKD, hysterectomy, cholecystectomy, gastric bypass presenting with abdominal pain. Patient states that she has had severe , acute abdominal pain since yesterday on 08/31. Nothing tried at home improved, and patient are not tolerating drinking or eating anything. Now moderate to severe, diffuse, cramping. Not associated with nausea or vomiting, diarrhea or constipation. Patient states that she is still passing gas, last bowel movement was yesterday and normal for her. 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 Admitted for continuous monitoring and further management. Subjective I am feeling gassy. Pt reports she is still feeling some pain and occasional nausea. Prior to being in the hospital, pt lived at home alone. Pt claims she is normally independent with all ADLs and IADLs. She uses a rolling walker during functional transfers. She also still drives. Objective Patient Orientation Person,Place,Birthday Right Upper Extremity Gross ROM WFL Left Upper Extremity Gross ROM WFL Bed Mobility bed mobility-scooting,bed mobility - supine/sit Assist Level Supervision/Stand by Transfer Training Sit/Stand Transfer Assist Level Supervision/Stand by Lower Body Dressing Ability Standby Assistance Performing Toilet Hygiene Ability Standby Assistance Overall Commode/Toilet Transfer Ability Standby Assistance Commode/Toilet Transfer Technique Sit to/from Ambulatory Rehab OT IP prob,goals,plan Problems Date of Evaluation: 09/05/23 Rehab Potential Rehab Potential Innapropriate for Skilled Therapy Discharge Plan OT Discharge Plan Pt appears to be at her baseline with functional transfers and ADL independence . Pt can return home once she is medically stable per physician. Eval Complexity Eval Charge Codes 68080 - Low Complexity PHYSICIAN CERTIFICATION: I certify the specified therapy services for Dianne Mojica Withers are required, authorized, and reviewed every 30 days.
[2023-09-05 16:00] VITALS: BP 146/72; PULSE 73; RESP 16; TEMP 36.4; O2SAT 96
[2023-09-05] MEDS: 0.9 % SODIUM CHLORIDE 1000ML 1,000 ML 125 ML IV (18:36)
[2023-09-05 20:00] VITALS: BP 157/68; PULSE 79; RESP 18; TEMP 37.1; O2SAT 97
[2023-09-05] MEDS: ATORVASTATIN 40MG TABLET 40 MG PO (20:58)
[2023-09-05] MEDS: SPIRONOLACTONE 25MG TABLET 25 MG PO (20:58)
[2023-09-06 04:00] VITALS: BP 130/60; PULSE 75; RESP 18; TEMP 36.9; O2SAT 95; BMI 36.9
--- NOTE | 2023-09-06 05:55 | PC.NURSE ---
no acute changes
[2023-09-06] MEDS: MORPHINE 2MG/ML SYRINGE 2 MG IV ×3 (06:01→21:49)
[2023-09-06 06:47] LABS: Basophils % 0.3 % (0.1-2.0); Eosinophils # 0.2 K/mm3 (0.0-0.4); Eosinophils % 1.3 % (0.1-12.0); Hematocrit 32.8 % (37.0-47.0); Hemoglobin 10.3 g/dL (12.2-16.2); Lymphocytes # 2.8 K/mm3 (0.7-4.5); Lymphocytes % 22.9 % (10-50); Mean Corpuscular HGB Conc 31.5 g/dL (31.8-35.4); Mean Corpuscular Hemoglobin 29.7 pg (27.0-31.2); Mean Corpuscular Volume 94.2 fl (81-99); Mean Platelet Volume 9.3 fl (7.4-10.4); Monocytes # 1.2 K/mm3 (0.1-1.0); Monocytes % 9.4 % (1.7-9.3); Neutrophils # 8.2 K/mm3 (1.8-7.8); Neutrophils % 66.1 % (37.0-80.0); Platelet Count 256 K/mm3 (142-424); Red Blood Count 3.48 M/mm3 (4.20-5.40); White Blood Count 12.4 K/mm3 (4.8-10.8)
[2023-09-06 06:56] LABS: Blood Urea Nitrogen 16 mg/dl (7-17); Calcium 8.8 mg/dl (8.4-10.2); Carbon Dioxide 23 mmol/L (22.0-30.0); Chloride 105 mmol/L (98-107); Creatinine Clearance Estimated 45 mL/min (50-200); Estimated Glomerular Filt Rate 39 ml/min (>60); GFR (African American) 47 ML/MIN (>60); Glucose 86 mg/dl (74-100); Sodium 133 mmol/L (136-145)
[2023-09-06 08:00] VITALS: BP 165/74; PULSE 71; RESP 18; TEMP 36.9; O2SAT 96
[2023-09-06] MEDS: 0.9 % SODIUM CHLORIDE 1000ML 1,000 ML 125 ML IV (08:55)
[2023-09-06] MEDS: ASPIRIN EC 81MG TABLET 81 MG PO (08:56)
[2023-09-06] MEDS: SPIRONOLACTONE 25MG TABLET 25 MG PO ×2 (08:56→15:37)
[2023-09-06] MEDS: LEVOTHYROXINE 75MCG (0.075MG) TAB 75 MCG PO (08:56)
[2023-09-06] MEDS: ACETAMINOPHEN 325MG TAB 650 MG PO ×2 (08:56→15:36)
[2023-09-06] MEDS: PANTOPRAZOLE 40MG TABLET 40 MG PO (08:56)
[2023-09-06] MEDS: IRBESARTAN 75MG TABLET 75 MG PO (08:56)
[2023-09-06] MEDS: CLOPIDOGREL 75MG TAB 75 MG PO (08:56)
[2023-09-06 10:03] VITALS: BMI 36.9
[2023-09-06] MEDS: POLYETHYLENE GLYCOL 3350 17 GM PACKET PO (11:16)
[2023-09-06] MEDS: SENNOSIDES 8.6MG/DOCUSATE 50MG TABLET 1 TAB PO (11:16)
[2023-09-06 15:21] VITALS: BP 177/74; PULSE 71; RESP 16; TEMP 36.6; O2SAT 98
[2023-09-06] MEDS: ONDANSETRON 4MG/2ML VIAL 4 MG IV (15:37)
--- NOTE | 2023-09-06 17:39 | P.PN_ITS ---
Subjective *Date: 09/06/23 *Time: 17:39 Interval history: Patient continues to have abdominal discomfort. Still no bowel movement since admission. Tolerating clear liquids. Would like to advance diet today. Stable on room air. Vomiting no chest pain or breath Medical Exam Vital signs and Labs for Last 24 Hours: Vital Signs Temp Pulse Resp BP Pulse Ox O2 Del Method 09/06/23 15:21 97.8 F 71 16 177/74 H 98 Room Air 09/06/23 08:00 98.4 F 71 18 165/74 H 96 Room Air 09/06/23 06:04 Room Air 09/06/23 05:00 Room Air 09/06/23 04:00 98.5 F 75 18 130/60 95 Room Air 09/06/23 03:00 Room Air 09/06/23 01:00 Room Air 09/05/23 23:00 Room Air 09/05/23 20:47 Room Air 09/05/23 20:00 98.8 F 79 18 157/68 H 97 Room Air 09/05/23 20:00 Room Air 09/05/23 19:00 Room Air Intake and Output 09/06/23 09/06/23 09/06/23 07:59 15:59 23:59 Intake Total 1358 / 1718 360 / 1718 Output Total 0 / 0 Balance 1358 / 1718 360 / 1718 Intake: Intake, Oral Amount 360 / 360 Intake, Total IV Amount 1358 / 1358 0.9 % Sodium Chloride 1000ML 1, 1358 / 1358 000 ml @ 125 mls/hr IV .[facility] Rx#:[id number] Output: Output, Urine Amount 0 / 0 Other: Number of Unmeasured Voids 1 1 Weight 85.321 kg Patient Weight 09/06/23 23:59 Weight 85.321 kg Laboratory Results - last 24 hr 09/06/23 05:51: WBC 12.4 H, RBC 3.48 L, Hgb 10.3 L, Hct 32.8 L, MCV 94.2, MCH 29.7, MCHC 31.5 L, RDW 15.0, Plt Count 256, MPV 9.3, Neut % (Auto) 66.1, Lymph % (Auto) 22.9, [place] % (Auto) 9.4 H, Eos % (Auto) 1.3, Baso % (Auto) 0.3, Neut # (Auto) 8.2 H, Lymph # (Auto) 2.8, [place] # (Auto) 1.2 H, Eos # (Auto) 0.2, Baso # (Auto) 0.0, Sodium 133 L, Potassium 4.0, Chloride 105, Carbon Dioxide 23, Anion Gap 9.0, BUN 16 D, Creatinine 1.30 H, Estimated Creat Clear 45, Estimated GFR 39 L, Est GFR ( Amer) 47 L, Glucose 86 D, Calcium 8.8 I & O for Labs for Last 24 Hours: Intake & Output 09/03/23 09/04/23 09/05/23 09/06/23 23:59 23:59 23:59 23:59 Intake Total 2907 / 3397 2310 / 2310 1075 / 1075 1718 / 1718 Output Total 0 / 0 250 / 250 200 / 200 0 / 0 Balance 2907 / 3397 2060 / 2060 875 / 875 1718 / 1718 Weight 84.623 kg 84.626 kg 84.626 kg 85.321 kg Constitutional: Present no acute distress, obese and cooperative Head: Present atraumatic and normocephalic ENT: Present normal exam Neck: Present normal inspection Respiratory: Present normal respiratory effort; Absent rhonchi, wheezes or crackles Cardiac: Present Reg Rate and Rhythm GI: Present soft, tenderness (Diffuse, no rebound or guarding) and normal bowel sounds; Absent distention Extremities: Present normal inspection and full ROM Skin: Present intact; Absent erythema Neuro: Present Grossly Intact, alert, awake, oriented x 3 and moves all extre mities Assessment and Plan *Assessment and plan (1) Acute pancreatitis: Status: Acute Qualifiers: Acute pancreatitis complication: no infection or necrosis Pancreatitis type: unspecified pancreatitis type Qualified Code(s): K85.90 - Acute pancreatitis without necrosis or infection, unspecified Category: Medical Code(s): K85.90 - Acute pancreatitis without necrosis or infection, unspecified (2) Acute kidney injury superimposed on CKD: Status: Acute Category: Medical Code(s): N17.9 - Acute kidney failure, unspecified; N18.9 - Chronic kidney disease, un specified (3) Coronary artery disease: Status: Acute Qualifiers: Coronary Disease-Associated Artery/Lesion type: [place] artery [place] vs. transplanted heart: [place] heart Associated angina: without angina Qualified Code(s): I25.10 - Atherosclerotic heart disease of [place] coronary artery without angina pectoris Category: Medical Code(s): I25.10 - Atherosclerotic heart disease of [place] coronary artery without angina pectoris (4) HTN (hypertension): Status: Acute Qualifiers: Hypertension type: unspecified Qualified Code(s): I10 - Essential (primary) hypertension Category: Medical Code(s): I10 - Essential (primary) hypertension (5) Hypothyroid: Status: Acute Qualifiers: Hypothyroidism type: unspecified Qualified Code(s): E03.9 - Hypothyroidism, unspecified Category: Medical Code(s): E03.9 - Hypothyroidism, unspecified (6) Constipation: Status: Acute Category: Medical Code(s): K59.00 - Constipation, unspecified (7) Class 2 obesity: Status: Acute Category: Medical Code(s): E66.9 - Obesity, unspecified Plan 82-year-old female PMHx of hypertension, hyperlipidemia, CAD status post stenting, renal artery stenosis status post stenting, CKD, hysterectomy, cholecystectomy, gastric bypass presenting with abdominal pain. on arrival patient hemodinamically stable. physical exam of abdomen tenderness on the epigastrium. Labs was obtained leukocytosis 11.8 without neutrophilia. Chemistry with mild hyponatremia, hyperkalemia, KACY creatinine 1.9 and BUN 67. Patient was given fluids for this. Lipase elevated at almost 3000. Urinalysis clear.. CTA of the abdomen and pelvis without acute mesenteric. Pancreatic fat stranding concerning for pancreatitis. Findings discussed with ED. Agreed for admission. Continues to require inpatient management for advancement of diet. Aggressive bowel regimen initiated today. Problems addressed as follows: Acute pancreatitis: Reactive leukocytosis - no Infection or necrosis suspected. Holding on antibiotics -Advance diet to full liquid. - Continue IV morphine 2 mg every 6 hours as needed, monitoring for toxicity. -Continue ursodiol 600 mg daily for gallstones -Zofran as needed every 8 hours for nausea and vomiting -Discontinue IV fluid -Lipase pending for the morning. White cell count 12.4, improving. Kidney function at baseline with BUN of 16, creatinine 1.3. Repeat CBC, CMP, magnesium ordered for the morning. Hypothyroid: Continue levothyroxine 75 mcg daily CAD, HTN, HLD -Continue home Plavix, aspirin, statin. -Irbesartan 75 mg daily for hypertension DNR
--- NOTE | 2023-09-06 18:02 | PC.NURSE ---
Patient had c/o pain and n/v this shift. Patient states that PRN medication helped alleviate these symptoms.
[2023-09-06 20:00] VITALS: BP 130/77; PULSE 101; RESP 20; TEMP 37; O2SAT 98
[2023-09-06] MEDS: ATORVASTATIN 40MG TABLET 40 MG PO (21:49)
[2023-09-07] MEDS: ACETAMINOPHEN 325MG TAB 650 MG PO ×2 (01:08→09:51)
[2023-09-07 04:00] VITALS: BP 157/59; PULSE 70; RESP 18; TEMP 36.4; O2SAT 98; BMI 36.9
--- NOTE | 2023-09-07 04:03 | PC.NURSE ---
pt lamberto full liquid diet without n/v, pt had successful bm after administration of laxatives
[2023-09-07 05:52] LABS: Basophils % 0.4 % (0.1-2.0); Eosinophils # 0.2 K/mm3 (0.0-0.4); Eosinophils % 2.3 % (0.1-12.0); Hematocrit 30.8 % (37.0-47.0); Hemoglobin 9.9 g/dL (12.2-16.2); Lymphocytes # 3.1 K/mm3 (0.7-4.5); Lymphocytes % 29.6 % (10-50); Mean Corpuscular Hemoglobin 29.5 pg (27.0-31.2); Mean Corpuscular Volume 92.2 fl (81-99); Mean Platelet Volume 9.3 fl (7.4-10.4); Monocytes # 0.8 K/mm3 (0.1-1.0); Monocytes % 7.5 % (1.7-9.3); Neutrophils # 6.3 K/mm3 (1.8-7.8); Neutrophils % 60.3 % (37.0-80.0); Platelet Count 248 K/mm3 (142-424); Red Blood Count 3.35 M/mm3 (4.20-5.40); White Blood Count 10.4 K/mm3 (4.8-10.8)
[2023-09-07 06:10] LABS: Alanine Aminotransferase 16 U/L (12-78); Albumin Level 2.8 g/dl (3.5-5.0); Albumin/Globulin Ratio 1.1 (1.1-1.8); Alkaline Phosphatase 120 U/L (38-126); Anion Gap 11.8 mEq/L (5-15); Aspartate Amino Transferase 26 U/L (14-36); Bilirubin,Total 0.4 mg/dl (0.2-1.3); Blood Urea Nitrogen 13 mg/dl (7-17); Calcium 8.6 mg/dl (8.4-10.2); Carbon Dioxide 22 mmol/L (22.0-30.0); Chloride 103 mmol/L (98-107); Creatinine Clearance Estimated 45 mL/min (50-200); Estimated Glomerular Filt Rate 39 ml/min (>60); GFR (African American) 47 ML/MIN (>60); Globulin 2.6 g/dL (1.3-3.2); Glucose 87 mg/dl (74-100); Lipase 247 U/L (23-300); Potassium 3.8 mmoL/L (3.5-5.1); Sodium 133 mmol/L (136-145); Total Protein,Serum 5.4 g/dl (6.3-8.2)
[2023-09-07] MEDS: LEVOTHYROXINE 75MCG (0.075MG) TAB 75 MCG PO (07:08)
[2023-09-07] MEDS: MORPHINE 2MG/ML SYRINGE 2 MG IV (07:08)
[2023-09-07 08:00] VITALS: BP 151/64; PULSE 88; RESP 22; TEMP 36.7; O2SAT 98
--- NOTE | 2023-09-07 08:01 | EXP.DC.SUM ---
General Admission date:: 09/02/23 Discharge date: 09/07/23 HPI HPI HPI: This is a 82-year-old female PMHx of hypertension, hyperlipidemia, CAD status post stenting, renal artery stenosis status post stenting, CKD, hysterectomy, cholecystectomy, gastric bypass presenting with abdominal pain. Patient states that she has had severe, acute abdominal pain since yesterday on 08/31. Nothing tried at home improved, and patient are not tolerating drinking or eating anything. Now moderate to severe, diffuse, cramping. Not associated with nausea or vomiting, diarrhea or constipation. Patient states that she is still passing gas, last bowel movement was yesterday and normal for her. 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 Admitted for continuous monitoring and further management. Hospital Course Hospital Course Hospital Course: 82-year-old female PMHx of hypertension, hyperlipidemia, CAD status post stenting, renal artery stenosis status post stenting, CKD, hysterectomy, cholecystectomy, gastric bypass presenting with abdominal pain. on arrival patient hemodinamically stable. physical exam of abdomen tenderness on the epigastrium. Labs was obtained leukocytosis 11.8 without neutrophilia. Chemistry with mild hyponatremia, hyperkalemia, KACY creatinine 1.9 and BUN 67. Patient was given fluids for this. Lipase elevated at almost 3000. Urinalysis clear. CTA of the abdomen and pelvis without acute mesenteric. Pancreatic fat stranding concerning for pancreatitis. Findings discussed with ED. Agreed for admission. Patient had gradual improvement in appetite. Able to tolerate full liquids. Occasional mild nausea, no emesis. Initially constipated, having bowel movements by day of discharge. Hemodynamically stable tolerating oral pain regimen and nutrition. Meeting criteria for discharge home to continue to convalesce. Problems addressed as follows: Acute pancreatitis: Reactive leukocytosis -Imaging of abdomen showed concern for pancreatitis, lipase was elevated at 3000. Antibiotics were held as there was no concern for infection or necrosis. Leukocytosis present though presumed to be reactive. Initiated on IV pain medication and had good improvement, transition to oral pain medication for discharge. Slowly advance diet as tolerated. Patient ambulating independently. Evaluated by therapy. At baseline level of function. Given improvement in lipase, improvement in white cell count, tolerance of p.o. intake and having bowel movements, meeting criteria for discharge home. Discussed patient's clinical improvement, normalization of white count, tolerance of p.o. intake instability on room air. She requested to stay for a couple additional days. I informed her that she was meeting criteria for discharge and there was no need for inpatient acute management. Continued home ursodiol 600 mg daily for gallstones. Zofran prescribed for nausea. Stable to discharge home Hypothyroid: Continue levothyroxine 75 mcg daily CAD, HTN, HLD -Continue home Plavix, aspirin, statin. Resume home losartan at discharge. Total time spent on discharge 35 minutes in counseling, documentation, chart review, and direct care with patient. Exam Data for Last 24 hours Vital signs and Labs for Last 24 Hours: Temp Pulse Resp BP Pulse Ox O2 Del Method 97.6 F 70 18 157/59 H 98 Room Air 09/07/23 04:00 09/07/23 04:00 09/07/23 04:00 09/07/23 04:00 09/07/23 04:00 09/07/23 07:00 Laboratory Results - last 24 hr 09/07/23 05:30: WBC 10.4, RBC 3.35 L, Hgb 9.9 L, Hct 30.8 L, MCV 92.2, MCH 29.5, MCHC 32.0, RDW 15.0, Plt Count 248, MPV 9.3, Neut % (Auto) 60.3, Lymph % (Auto) 29.6, [place] % (Auto) 7.5, Eos % (Auto) 2.3, Baso % (Auto) 0.4, Neut # (Auto) 6.3, Lymph # (Auto) 3.1, [place] # (Auto) 0.8, Eos # (Auto) 0.2, Baso # (Auto) 0.0, Sodium 133 L, Potassium 3.8, Chloride 103, Carbon Dioxide 22, Anion Gap 11.8, BUN 13, Creatinine 1.30 H, Estimated Creat Clear 45, Estimated GFR 39 L, Est GFR ( Amer) 47 L, Glucose 87, Calcium 8.6, Total Bilirubin 0.4, AST 26, ALT 16, Alkaline Phosphatase 120, Total Protein 5.4 L, Albumin 2.8 L, Globulin 2.6, Albumin/Globulin Ratio 1.1, Lipase 247 I & O for Last 24 hours: Intake & Output 05/05/24 05/06/24 05/07/24 05/08/24 23:59 23:59 23:59 23:59 Intake Total 2310 / 2310 1075 / 1075 2198 / 2198 Output Total 250 / 250 200 / 200 0 / 0 0 / 0 Balance 2059 / 2059 875 / 875 2197 / 2197 0 / 0 Weight 84.626 kg 84.626 kg 85.321 kg 85.366 kg Constitutional Constitutional: no acute distress, obese, chronically ill appearing and cooperative *Routine HEENT Exam Head: Present normocephalic Eye: Present EOMI and PERRL ENT: Present mucous membranes moist *Routine Neck Exam Neck: Present supple; Absent lymphadenopathy *Routine Respiratory Exam Respiratory: Present CTA bilaterally *Routine Cardiovascular Exam Cardiovascular: Present RRR *Routine Abdominal Exam Abdominal: Present soft, normoactive bowel sounds and tenderness (worse in upper abdomen, improved over admission); Absent distended or rebound *Routine Rectal Exam Patient deferred: visual exam *Routine Exam Patient deferred: external exam *Routine Extremities Exam Extremities: Absent cyanosis, clubbing or edema *Routine Skin Exam Skin: Present intact and warm; Absent rash *Routine Neurological Exam Neurological: Present alert, oriented X3 and moving all extremities; Absent altered mental status Results Data Completed and Pending Labs on day of discharge: Labs from last 24 hours 09/07/23 05:30 WBC 10.4 RBC 3.35 L Hgb 9.9 L Hct 30.8 L MCV 92.2 MCH 29.5 MCHC 32.0 RDW 15.0 Plt Count 248 MPV 9.3 Neut % (Auto) 60.3 Lymph % (Auto) 29.6 Bollinger % (Auto) 7.5 Eos % (Auto) 2.3 Baso % (Auto) 0.4 Neut # (Auto) 6.3 Lymph # (Auto) 3.1 Bollinger # (Auto) 0.8 Eos # (Auto) 0.2 Baso # (Auto) 0.0 Sodium 133 L Potassium 3.8 Chloride 103 Carbon Dioxide 22 Anion Gap 11.8 BUN 13 Creatinine 1.30 H Estimated Creat Clear 45 Estimated GFR 39 L Est GFR ( Amer) 47 L Glucose 87 Calcium 8.6 Total Bilirubin 0.4 AST 26 ALT 16 Alkaline Phosphatase 120 Total Protein 5.4 L Albumin 2.8 L Globulin 2.6 Albumin/Globulin Ratio 1.1 Lipase 247 DS: Diagnosis Discharge Diagnosis (1) Acute pancreatitis: Status: Acute Code(s): K85.90 - Acute pancreatitis without necrosis or infection, unspecified Qualifiers: Acute pancreatitis complication: no infection or necrosis Pancreatitis type: unspecified pancreatitis type Qualified Code(s): K85.90 - Acute pancreatitis without necrosis or infection, unspecified (2) Acute kidney injury superimposed on CKD: Status: Acute Code(s): N17.9 - Acute kidney failure, unspecified; N18.9 - Chronic kidney disease, unspecified (3) Coronary artery disease: Status: Acute Code(s): I25.10 - Atherosclerotic heart disease of [place] coronary artery without angina pectoris Qualifiers: Associated angina: without angina Coronary Disease-Associated Artery/Lesion type: [place] artery [place] vs. transplanted heart: [place] heart Qualified Code(s): I25.10 - Atherosclerotic heart disease of [place] coronary artery without angina pectoris (4) HTN (hypertension): Status: Acute Code(s): I10 - Essential (primary) hypertension Qualifiers: Hypertension type: unspecified Qualified Code(s): I10 - Essential (primary) hypertension (5) Hypothyroid: Status: Acute Code(s): E03.9 - Hypothyroidism, unspecified Qualifiers: Hypothyroidism type: unspecified Qualified Code(s): E03.9 - Hypothyroidism, unspecified (6) Constipation: Status: Acute Code(s): K59.00 - Constipation, unspecified (7) Class 2 obesity: Status: Acute Code(s): E66.9 - Obesity, unspecified Meds Home Medications and Allergies Home Medications Medication Instructions Recorded Confirmed Type aspirin 81 mg tablet,delayed 81 mg PO DAILY 08/16/17 09/09/23 History release (Adult Low Dose Aspirin) nitroglycerin 0.4 mg sublingual 0.4 mg sublingual Q5MINP PRN chest 10/18/22 09/09/23 History tablet pain nebulizers (Aeroneb Go Nebulizer) 11/04/22 09/09/23 History albuterol sulfate 90 mcg/actuation 2 puff inhalation Q4HP PRN 11/25/22 09/09/23 Rx aerosol inhaler shortness of breath or wheezing #8.5 grams baclofen 2 % cream in metered-dose 1 ea topical DIRECTED PRN Pain 12/27/22 09/09/23 History applicator gabapentin 10 % cream in 1 ea topical DIRECTED Pain 12/27/22 09/09/23 History metered-dose applicator ketamine 5 % cream in metered-dose 1 ea topical DIRECTED 12/27/22 09/09/23 History applicator oxygen-air delivery systems 12/27/22 09/09/23 History conjugated estrogens 0.625 mg/gram 0.625 mg vaginal DAILY 07/14/23 09/09/23 History vaginal cream (Premarin) azelastine 137 mcg (0.1 %) nasal 2 spray intranasal HS 90 days #30 07/21/23 09/09/23 Rx spray aerosol mL mometasone-formoterol HFA 100 2 puff inhalation BID 90 days #13 08/05/23 09/09/23 Rx mcg-5 mcg/actuation aerosol grams inhaler (Dulera) atorvastatin 40 mg tablet 40 mg PO DAILY 09/03/23 09/09/23 History clopidogrel 75 mg tablet 75 mg PO DAILY 09/03/23 09/09/23 History estradiol 0.01% (0.1 mg/gram) 1 applic vaginal DIRECTED 09/03/23 09/09/23 History vaginal cream fenofibrate micronized 67 mg 67 mg PO DAILY 09/03/23 09/09/23 History capsule levothyroxine 75 mcg tablet 75 mcg PO DAILY 09/03/23 09/09/23 History (Synthroid) losartan 50 mg tablet 50 mg PO DAILY 09/03/23 09/09/23 History pantoprazole 40 mg tablet,delayed 40 mg PO DAILY 09/03/23 09/09/23 History release spironolactone 25 mg tablet 25 mg PO BID 09/03/23 09/09/23 History tramadol 50 mg tablet 50 mg PO TID 09/03/23 09/09/23 History trazodone 50 mg tablet 100 mg PO HS 09/03/23 09/09/23 History ursodiol 300 mg capsule 600 mg PO DAILY 09/03/23 09/09/23 History ondansetron HCl 4 mg tablet 4 mg PO Q8H PRN nausea and 09/07/23 09/09/23 Rx vomiting 5 days #15 tabs New Prescriptions to Start Prescriptions: ondansetron HCl Brain Tim Allergies Allergy/AdvReac Type Severity Reaction Status Date / Time lisinopril Allergy Intermediate cough Verified 09/09/23 11:53 atenolol [ATENOLOL] Allergy Unknown ASTHMA Verified 09/09/23 11:53 ATTACK ciprofloxacin [From CIPRO] Allergy Unknown SWELLING/RA Verified 09/09/23 11:53 SH codeine [CODEINE] Allergy Unknown I-RASH Verified 09/09/23 11:53 cortisone [CORTISONE] Allergy Unknown I-HIVES/SOB Verified 09/09/23 11:53 erythromycin base Allergy Unknown I-RASH Verified 09/09/23 11:53 [ERYTHROMYCIN BASE] hydrocodone [From LORTAB] Allergy Unknown NA-NAUSEA Verified 09/09/23 11:53 latex [LATEX] Allergy Unknown I-HIVES Verified 09/09/23 11:53 loratadine [LORATADINE] Allergy Unknown SWELLING Verified 09/09/23 11:53 metronidazole [From FLAGYL] Allergy Unknown NA-DIZZINES Verified 09/09/23 11:53 S minocycline [From MINOCIN] Allergy Unknown I-RASH Verified 09/09/23 11:53 Penicillins [PENICILLINS] Allergy Unknown I-RASH Verified 09/09/23 11:53 Sulfa (Sulfonamide Allergy Unknown I-RASH Verified 09/09/23 11:53 Antibiotics) [SULFA (SULFONAMIDE ANTIBIOTICS)] carvedilol Allergy Difficulty Verified 09/09/23 11:53 Breathing metoprolol Allergy Difficulty Verified 09/09/23 11:53 Breathing fluticasone AdvReac Fever Verified 09/09/23 11:53 [From Advair Diskus] levofloxacin AdvReac Unknown Verified 09/09/23 11:53 allergy reaction salmeterol AdvReac Fever Verified 09/09/23 11:53 [From Advair Diskus] Discharge Plan Disposition Patient Disposition: Home, Self-Care Condition: Fair Discharge Order Discharge Orders: Discharge Order (Routine); Ordered 09/07/23 Ordered By: Brain Tim Follow up Plan Follow up with: Karley Messer APRN [Primary Care Provider] - 09/15/23 10:30 am Prescriptions/Medication Reconciliation: New ondansetron HCl 4 mg tablet 4 mg PO Q8H PRN (Reason: nausea and vomiting) 5 Days Qty: 15 0RF Continued aspirin [Adult Low Dose Aspirin] 81 mg tablet,delayed release (DR/EC) 81 mg PO DAILY Premarin 0.625 mg/gram cream 0.625 mg vaginal DAILY Rx Instructions: Using finger technique she will apply daily for 2 weeks and then 3 times weekly thereafter. albuterol sulfate 90 mcg/actuation HFA aerosol inhaler 2 puff inhalation Q4HP PRN (Reason: shortness of breath or wheezing) Qty: 8.5 5RF (DME) oxygen-air delivery systems Device See Rx Instructions .Route Rx Instructions: 2 liters at night gabapentin 10 % cream, metered-dose applicator 1 ea topical DIRECTED Rx Instructions: compound cream ketamine 5 % cream, metered-dose applicator 1 ea topical DIRECTED Rx Instructions: compound cream baclofen 2 % cream, metered-dose applicator 1 ea topical DIRECTED PRN (Reason: Pain) Rx Instructions: compound cream azelastine 137 mcg (0.1 %) aerosol,spray 2 spray intranasal HS 90 Days Qty: 30 2RF Rx Instructions: administer into each nostril Dulera 100-5 mcg/actuation HFA aerosol inhaler 2 puff inhalation BID 90 Days Qty: 13 2RF (DME) nebulizers [Aeroneb Go Nebulizer] Misc See Rx Instructions .Route Rx Instructions: As directed losartan 50 mg tablet 50 mg PO DAILY atorvastatin 40 mg tablet 40 mg PO DAILY trazodone 50 mg tablet 100 mg PO HS clopidogrel 75 mg tablet 75 mg PO DAILY fenofibrate micronized 67 mg capsule 67 mg PO DAILY tramadol 50 mg tablet 50 mg PO TID spironolactone 25 mg tablet 25 mg PO BID levothyroxine [Synthroid] 75 mcg tablet 75 mcg PO DAILY pantoprazole 40 mg tablet,delayed release (DR/EC) 40 mg PO DAILY ursodiol 300 mg capsule 600 mg PO DAILY estradiol 0.01 % (0.1 mg/gram) cream 1 applic vaginal DIRECTED Rx Instructions: Using finger technique daily for two weeks and then twice weekly vaginally; nitroglycerin 0.4 mg tablet, sublingual 0.4 mg sublingual Q5MINP PRN (Reason: chest pain) Rx Instructions: do not exceed 3 doses per episode. 1 SL tab every 5min x 3 doses. If chest pain not resolved after 3rd dose, then call 911. Discontinued cefdinir 300 mg capsule 300 mg PO BID 7 Days Qty: 14 0RF Problem Reconciliation Problems Reviewed?: Yes Patient Discharge Instructions ACTIVITY: Continue current activity DIET: continue same diet Patient Instructions: DI for Pancreatitis Providers Primary Care Provider: Karley Messer Admit Provider: Ayse Bacon Attending Provider: Ayse Bacon
[2023-09-07] MEDS: CLOPIDOGREL 75MG TAB 75 MG PO (09:25)
[2023-09-07] MEDS: PANTOPRAZOLE 40MG TABLET 40 MG PO (09:25)
[2023-09-07] MEDS: IRBESARTAN 75MG TABLET 75 MG PO (09:25)
[2023-09-07] MEDS: ASPIRIN EC 81MG TABLET 81 MG PO (09:25)
[2023-09-07] MEDS: SPIRONOLACTONE 25MG TABLET 25 MG PO (09:25)
[2023-09-07] MEDS: ursodioL 300 MG CAPSULE 600 MG PO (09:25)
[2023-09-07] MEDS: TRAMADOL 50MG TABLET 50 MG PO (12:57)
[2023-09-07 16:00] VITALS: BP 140/67; PULSE 78; RESP 18; TEMP 36.4; O2SAT 98
--- NOTE | 2023-09-07 17:29 | PC.NURSE ---
AT 1700 ACCORDING TO PT HER RIDE WAS SUPPOSED BE HERE TO PICK HER UP PT REQUESTED TO GO SIT IN THE LOBBY TO WAIT FOR HER RIDE. STAFF ENCOURAGED PT TO WAIT IN HER ROOM AND WHEN HER RIDE ARRIVED STAFF COULD TAKE HER DOWN TO THE CAR. PT STATED HER SON IN LAW RAN ON HIS OWN TIME AND SHE WOULD MUCH RATHER JUST WAIT IN THE LOBBY AND HE WOULD HELP HER CARRY HER BELONGINGS FROM THE LOBBY TO CAR. STAFF ASSISTED PT TO THE LOBBY AND INSISTED THAT STAFF DID NOT HAVE TO WAIT WITH HER.
--- NOTE | 2023-09-08 15:27 | SW/DCPLANNER ---
Follow up phone call: patient stated that she was so so but did not have any needs at this time. Patient is aware of her follow up appointment w/ [facility]. Patient did not have any further needs/questions at this time.
== END 2023-09-07 17:15 | disposition home or self-care (01) | DRG 439 ==
LOC: ER 20:33 → 2ND 22:32
PROVIDERS: Internal Medicine Adolescent Medicine; Nurse Practitioner Family; Admitting Provider Internal Medicine; Emergency Provider Emergency Medicine; PCP Nurse Practitioner Family; Visit Provider Internal Medicine
DX: K85.90 Acute pancreatitis without necrosis or infection, unspecified (principal); N17.9 Acute kidney failure, unspecified; N18.30 Chronic kidney disease, stage 3 unspecified; I25.10 Atherosclerotic heart disease of native coronary artery without angina pectoris; E03.9 Hypothyroidism, unspecified; E55.9 Vitamin D deficiency, unspecified; Z79.899 Other long term (current) drug therapy; I12.9 Hypertensive chronic kidney disease with stage 1 through stage 4 chronic kidney disease, or unspecified chronic kidney disease; Z95.5 Presence of coronary angioplasty implant and graft; M54.9 Dorsalgia, unspecified; G89.29 Other chronic pain; M54.2 Cervicalgia; E66.9 Obesity, unspecified; Z68.36 Body mass index [BMI] 36.0-36.9, adult; K59.00 Constipation, unspecified
CPT/HCPCS: 36415; 74174; 74176; 80048; 80053; 81001; 83605; 83690; 83735; 85025; 97162; 97165; 99285; J0131; J2405; Q9967

== ENCOUNTER 2023-09-09 15:13 | Outpatient (CLI) | payer MEDICARE, SELFPAY | END 2023-09-09 23:59 | disposition home or self-care (01) | LOC: LAB.DROPOF 15:14 | PROVIDERS: PCP Nurse Practitioner Family; Visit Provider Nurse Practitioner Family | DX: R30.0 Dysuria (principal); R39.198 Other difficulties with micturition; B96.29 Other Escherichia coli [E. coli] as the cause of diseases classified elsewhere | CPT/HCPCS: 87086; 87088; 87186 ==

== ENCOUNTER 2023-09-15 16:50 | Outpatient (CLI) | payer MEDICARE, SELFPAY | END 2023-09-15 23:59 | disposition home or self-care (01) | LOC: LAB.DROPOF 16:51 | PROVIDERS: PCP Nurse Practitioner Family; Visit Provider Nurse Practitioner Family | DX: R39.9 Unspecified symptoms and signs involving the genitourinary system (principal) | CPT/HCPCS: 87086 ==

== ENCOUNTER 2023-10-11 15:19 | Outpatient (CLI) | payer MEDICARE, SELFPAY | END 2023-10-11 23:59 | disposition home or self-care (01) | LOC: LAB.DROPOF 15:19 | PROVIDERS: PCP Nurse Practitioner Family; Visit Provider Nurse Practitioner Family | DX: R30.0 Dysuria (principal); R10.30 Lower abdominal pain, unspecified; M54.50 Low back pain, unspecified; R10.2 Pelvic and perineal pain | CPT/HCPCS: 87086 ==

== ENCOUNTER 2023-11-07 14:08 | Outpatient (CLI) | payer MEDICARE, SELFPAY ==
[2023-11-07 14:41] LABS: Blood Urea Nitrogen 35 mg/dl (7-17)
[2023-11-07 14:42] LABS: Estimated Glomerular Filt Rate 25 ml/min (>60); GFR (African American) 31 ML/MIN (>60)
== END 2023-11-07 23:59 | disposition home or self-care (01) ==
LOC: LAB 14:09
PROVIDERS: PCP Nurse Practitioner Family; Visit Provider Urology
DX: N39.0 Urinary tract infection, site not specified (principal)
CPT/HCPCS: 36415; 82565; 84520; 87086; 87088; 87186

== ENCOUNTER 2023-11-25 10:12 | Outpatient (CLI) | payer MEDICARE, SELFPAY ==
[2023-11-25 10:47] LABS: Basophils # 0.1 K/mm3 (0-0.2); Basophils % 0.5 % (0.1-2.0); Eosinophils # 0.2 K/mm3 (0.0-0.4); Eosinophils % 1.5 % (0.1-12.0); Hematocrit 30.4 % (37.0-47.0); Hemoglobin 9.9 g/dL (12.2-16.2); Lymphocytes # 3.3 K/mm3 (0.7-4.5); Lymphocytes % 29.7 % (10-50); Mean Corpuscular HGB Conc 32.7 g/dL (31.8-35.4); Mean Corpuscular Hemoglobin 30.3 pg (27.0-31.2); Mean Corpuscular Volume 92.5 fl (81-99); Mean Platelet Volume 8.9 fl (7.4-10.4); Monocytes # 0.9 K/mm3 (0.1-1.0); Neutrophils # 6.7 K/mm3 (1.8-7.8); Neutrophils % 60.3 % (37.0-80.0); Platelet Count 346 K/mm3 (142-424); Red Blood Count 3.28 M/mm3 (4.20-5.40); Red Cell Distribution Width 15.3 % (11.5-17.5); White Blood Count 11.1 K/mm3 (4.8-10.8)
[2023-11-25 10:52] LABS: Creatinine,Urine Random 107 mg/dL (Not Estab.)
[2023-11-25 10:57] LABS: Microalbumin < 6.000 mg/L (0-16.7)
[2023-11-25 11:32] LABS: Albumin Level 3.9 g/dl (3.5-5.0); Blood Urea Nitrogen 48 mg/dl (7-17); Calcium 9.5 mg/dl (8.4-10.2); Carbon Dioxide 19 mmol/L (22.0-30.0); Chloride 107 mmol/L (98-107); Estimated Glomerular Filt Rate 22 ml/min (>60); GFR (African American) 27 ML/MIN (>60); Glucose 129 mg/dl (74-100); Phosphorous 5.1 mg/dl (2.5-4.5); Sodium 137 mmol/L (136-145)
[2023-11-25 11:33] LABS: Anion Gap 14.1 mEq/L (5-15); Blood Urea Nitrogen 48 mg/dl (7-17); Calcium 9.5 mg/dl (8.4-10.2); Carbon Dioxide 20 mmol/L (22.0-30.0); Chloride 107 mmol/L (98-107); Estimated Glomerular Filt Rate 22 ml/min (>60); GFR (African American) 27 ML/MIN (>60); Glucose 129 mg/dl (74-100); Potassium 5.1 mmoL/L (3.5-5.1); Sodium 136 mmol/L (136-145)
[2023-11-25 11:49] LABS: 25-OH Vitamin D, Total 49.5 ng/mL (30-100)
[2023-11-29 06:54] LABS: Cystatin C 2.38 mg/L (0.87-1.12)
== END 2023-11-25 23:59 | disposition home or self-care (01) ==
LOC: LAB 10:15
PROVIDERS: Anesthesiology; PCP Nurse Practitioner Family; Visit Provider Internal Medicine Nephrology
DX: Z01.818 Encounter for other preprocedural examination (principal); N18.31 Chronic kidney disease, stage 3a; Z68.37 Body mass index [BMI] 37.0-37.9, adult; E66.9 Obesity, unspecified
CPT/HCPCS: 36415; 80048; 80069; 82043; 82306; 82570; 82610; 85025

== ENCOUNTER 2023-12-02 08:45 | Day surgery (SDC) | payer MEDICARE, SELFPAY ==
[2023-12-01 10:27] VITALS: BMI 34.0
--- NOTE | 2023-12-02 09:25 | EXP.ANES.CKL ---
[facility] Disclaimer: The information contained in this section may have been updated after the patient was seen, as this information can be updated by other users. 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 Functional abdominal pain syndrome Chronic neck pain Internal carotid artery stenosis Severe sleep apnea Neck pain Obesity CAD in [place] artery Pulmonary hypertension History of sleep apnea Nocturnal hypoxia Dyspnea on exertion History of smoking 30 or more pack years Asthma Dizziness Left-sided weakness History of stent insertion of renal artery Renal artery stenosis Diastolic heart failure Right-sided congestive heart failure History of sleep apnea History of asthma Pleural effusion, bilateral Pneumonia Acute respiratory failure with hypoxia CKD (chronic kidney disease) stage 3, GFR 30-59 ml/min Hypoxemia Bradycardia Spinal stenosis of lumbar region Dyspnea Cough UTI (urinary tract infection) Vaginal yeast infection Hypertensive urgency Chronic UTI Insomnia Vitamin D deficiency Overactive bladder Excessive cerumen in both ear canals Persistent dry cough Asthma Osteoporosis Interstitial cystitis Renal failure Diverticulosis GERD (gastroesophageal reflux disease) Heart disease History of asthma Dilatation of bladder DDD (degenerative disc disease) Back pain Gallstones UTI (urinary tract infection) Left lower lobe pneumonia Atelectasis Renal insufficiency Anemia CAD (coronary artery disease) Benign paroxysmal vertigo Surgical History H/O gastric bypass History of renal stent H/O: hysterectomy Hx of cataract removal with insertion of prosthetic lens Hx of colonoscopy Status post rotator cuff surgery H/O heart artery stent S/P cardiac catheterization History of biopsy of bladder H/O breast biopsy History of dilation and curettage Previous back surgery Hx of cholecystectomy Family History Father Coronary artery disease Hyperlipidemia Hypertension Stroke Mother Coronary artery disease Heart attack Hyperlipidemia Hypertension Brother Cancer Coronary artery disease Diabetes Heart attack Hyperlipidemia Hypertension Stroke Sister Cancer Hyperlipidemia Hypertension Diabetes Son Coronary artery disease Heart attack Daughter Hyperlipidemia Hypertension Social History Smoking Status: Former smoker years smoked: 30 second hand exposure: No alcohol intake: never substance use type: denies use current occupational status: retired and other Travel in the last 8 weeks: None household members: none housing: house current occupational exposures/hazards: No caffeine: Yes [facility] Anesthesia Checklist Patient Identification Patient Identification: Arm Band and Verbal (Name & ) Structural Data Admitted From: Home Planned Operative Procedure/s: IPPP Consent for Planned Operative Procedure(s) Verified: Yes Verified Documents: Surgical Consent and History and Physical NPO Status Verified Time NPO: 00:00 Chart Verification Results Verified: CBC and BMP Additional verifications Anesthesia Reactions: No Hx Blood Transfusions: No Blood Transfusion Reaction: No Airway Assessment Mallampati Score:: Class IV C-Spine Mobility Assessed: Yes TMJ Mobility Assessed: Yes Dentition: Partials Neurological Assessment Level of Consciousness: Awake Hx Seizures: No Numbness or tingling in extremities: No Anesthesia Plan Anesthesia Risk discussed: Yes Anesthesia Plan: Verified ASA Class: III Anesthesia Type: MAC
--- NOTE | 2023-12-02 09:28 | SUR.PREOP ---
Pt has allergy to Erythromycin and verified with Ajit in pharmacy okay to give Vancomycin.
[2023-12-02 09:32] VITALS: BP 181/57; PULSE 81; RESP 18; TEMP 36.6; O2SAT 98
[2023-12-02 09:35] LABS: Amphetamine/Metha Screen,Urine Negative ng/ml (<1000); Benzodiazepines Screen,Urine Negative ng/ml (<200)
[2023-12-02 09:36] LABS: Barbiturates Screen,Urine Negative ng/ml (<200)
[2023-12-02 09:37] LABS: Cannabinoid Screen,Urine Negative ng/ml (<50); Cocaine Screen,Urine Negative ng/ml (<300)
[2023-12-02 09:38] LABS: Methadone Screen,Urine Negative ng/ml (<300)
[2023-12-02] MEDS: LACTATED RINGERS 1000ML 1,000 ML 25 ML IV (09:38)
[2023-12-02 09:39] LABS: Opiate Screen,Urine Negative ng/ml (<300); Phencyclidine Screen,Urine Negative ng/ml (<25)
[2023-12-02] MEDS: VANCOMYCIN/WATER FOR INJ (PEG) 1.25 GM/250 ML PIGGYBACK IV (10:13)
[2023-12-02] MEDS: LIDOCAINE 1% W/EPI 1:100,000 20ML VIAL 20 ML ×2 (10:41→10:43)
[2023-12-02 11:12] VITALS: BP 136/70; PULSE 18; RESP 18; TEMP 36.3; O2SAT 92
[2023-12-02 11:22] VITALS: BP 150/64; PULSE 93; RESP 18; O2SAT 93
[2023-12-02 11:32] VITALS: BP 155/65; PULSE 71; RESP 18; O2SAT 98
[2023-12-02 12:05] VITALS: BP 165/74; PULSE 71; RESP 18; O2SAT 97
--- NOTE | 2023-12-02 15:23 | P.OP_ITS ---
Date of procedure: 12/02/23 Pre-op Diagnosis:: Degenerative disc disease of lumbar spine with lumbar radiculopathy symptoms Post-op Diagnosis:: Same Procedure performed:: Permanent placement intrathecal pain pump Surgeon:: Anant Helms MD Anesthesia: MAC Estimated blood loss (mL): 5 Clinical Note:: This patient is a pleasant 83-year-old white female who we are treating for low back pain with lumbar radiculopathy symptoms. She has increasing pain in her back radiating down both lower extremities. She has failed all previous conservative therapy including injections, oral medications, physical therapy and she is not a candidate for surgery. She presents for permanent placement of her intrathecal pain pump today. She has a successful psychological evaluation and had a successful intrathecal pump trial. Operative findings:: None Operative note:: Informed consent was obtained risk and benefits of the procedure were explained to the patient. The patient was taken the operating room placed prone on the procedure table. The patient was prepped and draped in sterile fashion. C-arm fluoroscopy was used to view the left flank. The skin and subcutaneous tissues residential between the 12th rib and iliac crest were anesthetized using lidocaine. I made incision dissected out the generator pocket. C-arm fluoroscopy was then used to view the lumbar spine. The skin and subcutaneous tissues adjacent to the L4-5 and L5-S1 interspace were anesthetized using lidocaine. I made incision and dissected down to the lumbar paraspinous fascia. A 17-gauge spinal needle was inserted and advanced into the L4-5 interspace until clear CSF was obtained. After this intrathecal catheter was inserted and advanced very easily to the T8 vertebral body. The catheter was found to be in good position. It was midline and posterior. The stylette and needle were removed. The catheter secured to the fascia with an anchor device and 2-0 Prolene. I tunneled the catheter from the back to the pump pocket. I felt the pump was 20 mL of intrathecal morphine 1 mg/mL. I attached catheter to the pump. We were able to freely draw clear CSF through the sideport. The pump was then placed back in the pocket. Both incisions were closed with 2-0 Vicryl followed by 4-0 nylon and hao. The patient was placed in an abdominal binder taken recovery in stable condition. Patient tolerated the procedure well with no complications. Pump was interrogated and started at 100 mcg/day. Patient was discharged home neurologic intact with good relief of pain symptoms. Plan and disposition: Follow-up with this patient in 1 week for wound check and reprogram. Will follow-up in 2 to 3 weeks for suture and staple removal. Condition: stable Disposition: PACU Complications:: None
== END 2023-12-02 12:05 | disposition home or self-care (01) ==
PROVIDERS: PCP Nurse Practitioner Family; Visit Provider Anesthesiology
PROC: (CPT 62350; principal; 2023-12-02 10:30)
DX: M51.16 Intervertebral disc disorders with radiculopathy, lumbar region (principal); M51.27 Other intervertebral disc displacement, lumbosacral region; Z79.899 Other long term (current) drug therapy
CPT/HCPCS: 62350; 62362; 80307; 96374; C1755; C1772; J7120

== ENCOUNTER 2023-12-08 14:34 | Outpatient (POV) | payer MEDICARE, SELFPAY ==
--- NOTE | 2023-12-08 14:56 | EXP.PAIN.SOA ---
[facility] Disclaimer: The information contained in this section may have been updated after the patient was seen, as this information can be updated by other users. 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 Functional abdominal pain syndrome Chronic neck pain Internal carotid artery stenosis Severe sleep apnea Neck pain Obesity CAD in [place] artery Pulmonary hypertension History of sleep apnea Nocturnal hypoxia Dyspnea on exertion History of smoking 30 or more pack years Asthma Dizziness Left-sided weakness History of stent insertion of renal artery Renal artery stenosis Diastolic heart failure Right-sided congestive heart failure History of sleep apnea History of asthma Pleural effusion, bilateral Pneumonia Acute respiratory failure with hypoxia CKD (chronic kidney disease) stage 3, GFR 30-59 ml/min Hypoxemia Bradycardia Spinal stenosis of lumbar region Dyspnea Cough UTI (urinary tract infection) Vaginal yeast infection Hypertensive urgency Chronic UTI Insomnia Vitamin D deficiency Overactive bladder Excessive cerumen in both ear canals Persistent dry cough Asthma Osteoporosis Interstitial cystitis Renal failure Diverticulosis GERD (gastroesophageal reflux disease) Heart disease History of asthma Dilatation of bladder DDD (degenerative disc disease) Back pain Gallstones UTI (urinary tract infection) Left lower lobe pneumonia Atelectasis Renal insufficiency Anemia CAD (coronary artery disease) Benign paroxysmal vertigo Surgical History H/O gastric bypass History of renal stent H/O: hysterectomy Hx of cataract removal with insertion of prosthetic lens Hx of colonoscopy Status post rotator cuff surgery H/O heart artery stent S/P cardiac catheterization History of biopsy of bladder H/O breast biopsy History of dilation and curettage Previous back surgery Hx of cholecystectomy Family History Father Coronary artery disease Hyperlipidemia Hypertension Stroke Mother Coronary artery disease Heart attack Hyperlipidemia Hypertension Brother Cancer Coronary artery disease Diabetes Heart attack Hyperlipidemia Hypertension Stroke Sister Cancer Hyperlipidemia Hypertension Diabetes Son Coronary artery disease Heart attack Daughter Hyperlipidemia Hypertension Social History Smoking Status: Former smoker years smoked: 30 second hand exposure: No alcohol intake: never substance use type: denies use current occupational status: retired and other Travel in the last 8 weeks: None household members: none housing: house current occupational exposures/hazards: No caffeine: Yes PM Subjective & Objective Subjective Subjective:: Patient is a pleasant 83-year-old female who presents today for 1 week postop of her intrathecal pain pump implant. Today she rates her pain a 5 out of 10. Patient describes that she has had at least 70% improvement from having this implanted. Patient is currently managed with morphine 1 mg/mL with a daily dose of 0.1002 milligrams per day. She denies any side effects from this medication. She does state that she has very minimal swelling in and around her right ankle however she has had this before and was even on a fluid pill. Patient states it is not anything significant and is unsure whether or not it has anything to do with the pain. Patient does state that she is currently on antibiotics and that that medication was making her feel little dizzy and that she is going to start taking it at bedtime. Her Doni has been reviewed and is appropriate. Review of Systems: General: No recent weight changes, no fever, no sleep disturbances Respiratory: No cough, no shortness of air, no recurring pulmonary infections Cardiovascular/peripheral vascular: No chest pain, no palpitations, no edema, no shortness of breath Gastrointestinal: No new onset incontinence, normal bowel movements reported Genitourinary: No new onset incontinence Musculoskeletal: Low back pain Psychiatric: [Normal mood/affect] Neurological: [Denies weakness in extremities], [denies balance issues] Pain at rest (0-10 scale): 5 Objective Objective:: Physical Exam: General: Alert and oriented x3, no acute distress, pleasant and cooperative Lungs: Respirations even and unlabored, symmetrical chest expansion Eyes: PERRL Musculoskeletal: Flexion and extension of lumbar [spine] somewhat guarded secondary to pain, [antalgic gait noted] Neurological: Speech clear, no gross sensory deficit Skin: Incision sites are clean, dry, well-approximated with sutures and hao intact minimal erythema noted Has patient had previous pain injection?: No Conservative treatment options previously tried: Prescription medications Length of treatment: Longer than 6 weeks Meds Home Medications and Allergies Home Medications ?Medication ?Instructions ?Recorded ?Confirmed ?Type aspirin 81 mg tablet,delayed 81 mg PO DAILY 08/16/17 12/02/23 History release (Adult Low Dose Aspirin) nitroglycerin 0.4 mg sublingual 0.4 mg sublingual Q5MINP PRN chest 10/18/22 12/02/23 History tablet pain nebulizers (Aeroneb Go Nebulizer) 11/04/22 11/29/23 History albuterol sulfate 90 mcg/actuation 2 puff inhalation Q4HP PRN 11/25/22 12/02/23 Rx aerosol inhaler shortness of breath or wheezing #8.5 grams baclofen 2 % cream in metered-dose 1 ea topical DIRECTED PRN Pain 12/27/22 12/02/23 History applicator gabapentin 10 % cream in 1 ea topical DIRECTED Pain 12/27/22 12/02/23 History metered-dose applicator ketamine 5 % cream in metered-dose 1 ea topical DIRECTED 12/27/22 12/02/23 History applicator oxygen-air delivery systems 12/27/22 11/29/23 History mometasone-formoterol HFA 100 2 puff inhalation BID 90 days #13 08/05/23 12/02/23 Rx mcg-5 mcg/actuation aerosol grams inhaler (Dulera) fenofibrate micronized 67 mg 67 mg PO DAILY 09/03/23 12/02/23 History capsule levothyroxine 75 mcg tablet 75 mcg PO DAILY 09/03/23 12/02/23 History (Synthroid) trazodone 50 mg tablet 100 mg PO HS 09/03/23 12/02/23 History azelastine 137 mcg (0.1 %) nasal 2 spray intranasal HS PRN Dry 10/11/23 12/02/23 History spray Nasal Passages sodium chloride 0.65 % nasal spray 1 spray intranasal TID #50 mL 10/17/23 12/02/23 Rx aerosol (Brunswick Saline) ursodiol 300 mg capsule 600 mg (2 x 300 mg) PO DAILY 90 10/17/23 12/02/23 Rx days #180 caps trimethoprim 100 mg tablet 100 mg PO DAILY #30 tabs 11/09/23 12/02/23 Rx ascorbic acid (vitamin C) 500 mg 500 mg PO Q6H 11/14/23 12/02/23 History capsule atorvastatin 40 mg tablet (Lipitor) 40 mg PO DAILY 11/14/23 12/02/23 History losartan 50 mg tablet (Cozaar) 50 mg PO DAILY 11/14/23 12/02/23 History spironolactone 25 mg tablet 25 mg PO BID 11/14/23 12/02/23 History tramadol 50 mg tablet 50 mg PO TID PRN pain #90 tabs 11/14/23 12/02/23 Rx triamcinolone acetonide 0.1 % 1 applic topical BID #15 grams 11/14/23 12/02/23 Rx topical cream estradiol 0.01% (0.1 mg/gram) 1 applic vaginal DIRECTED 12/02/23 12/02/23 History vaginal cream (Estrace) pantoprazole 40 mg tablet,delayed See Rx Instructions .Route .COMPLEX 12/02/23 12/02/23 History release (Protonix) New Prescriptions to Start Prescriptions: Allergies Allergy/AdvReac Type Severity Reaction Status Date / Time lisinopril Allergy Intermediate cough Verified 12/02/23 09:24 atenolol [ATENOLOL] Allergy Unknown ASTHMA Verified 12/02/23 09:24 ATTACK ciprofloxacin [From CIPRO] Allergy Unknown SWELLING/RA Verified 12/02/23 09:24 SH codeine [CODEINE] Allergy Unknown I-RASH Verified 12/02/23 09:24 cortisone [CORTISONE] Allergy Unknown I-HIVES/SOB Verified 12/02/23 09:24 erythromycin base Allergy Unknown I-RASH Verified 12/02/23 09:24 [ERYTHROMYCIN BASE] hydrocodone [From LORTAB] Allergy Unknown NA-NAUSEA Verified 12/02/23 09:24 latex [LATEX] Allergy Unknown I-HIVES Verified 12/02/23 09:24 loratadine [LORATADINE] Allergy Unknown SWELLING Verified 12/02/23 09:24 metronidazole [From FLAGYL] Allergy Unknown NA-DIZZINES Verified 12/02/23 09:24 S minocycline [From MINOCIN] Allergy Unknown I-RASH Verified 12/02/23 09:24 Penicillins [PENICILLINS] Allergy Unknown I-RASH Verified 12/02/23 09:24 Sulfa (Sulfonamide Allergy Unknown I-RASH Verified 12/02/23 09:24 Antibiotics) [SULFA (SULFONAMIDE ANTIBIOTICS)] carvedilol Allergy Difficulty Verified 12/02/23 09:24 Breathing metoprolol Allergy Difficulty Verified 12/02/23 09:24 Breathing fluticasone AdvReac Fever Verified 12/02/23 09:24 [From Advair Diskus] levofloxacin AdvReac Unknown Verified 12/02/23 09:24 allergy reaction salmeterol AdvReac Fever Verified 12/02/23 09:24 [From Advair Diskus] Assessment and Plan *Assessment and plan (1) Degenerative disc disease, lumbar: Status: Acute Category: Medical Code(s): M51.36 - Other intervertebral disc degeneration, lumbar region Plan Patient has had significant improvement following her intrathecal pain pump implant. I did crisis counselor her to continue her postop restrictions for full 6 weeks and that she can shower. Patient will return to clinic in 2 weeks for reevaluation of symptoms and plan of care as well as suture and staple removal. Patient was counseled to contact her office if she has any additional swelling in the right leg from now to her next appointment. Patient agrees with this plan of care. Patient has been instructed to contact the clinic with any concerns before the next appointment. Dr. Helms has reviewed this note and agrees with this plan of care. This note was dictated using voice recognition software and make contain errors or omissions. -- It Is medically necessary for this patient to continue to have their intrathecal pump refilled at regular intervals. This patient had an intrathecal pain pump implanted after meeting criteria of chronic intractable pain for greater than 3 months and failing conservative treatments. Patient has committed and been compliant to the treatment plan and all planned follow up care. Since implantation of the intrathecal pain pump, the patient has had decreased pain and been more functional. Oral medications have been reduced including intake of oral opioids. Patient continues to do well with intrathecal therapy with decrease in pain symptoms and increase in functional status. Stopping intrathecal medications can lead to life threatening withdrawal, seizures, cardiac arrest, severe pain, and possible . Pumps that are not refilled at regular intervals can be damages and cause and need for replacement. We continually titrate dose and concentration to optimize pain relief and function. We are limited in concentration for certain drugs to safely deliver medications through the pump and stay within the recommendations from the Polyanalgesic Consensus Committee Guidelines. Depending on dose and concentration these pumps may need to be refilled sooner than 3 months as we titrate.
[2023-12-08 15:15] VITALS: BP 138/63; PULSE 85; RESP 18; O2SAT 96; BMI 34.0
== END 2023-12-08 23:59 | disposition home or self-care (01) ==
LOC: SC.PAIN 14:35
PROVIDERS: PCP Nurse Practitioner Family; Visit Provider Nurse Practitioner Family
DX: M51.36 Other intervertebral disc degeneration, lumbar region (principal); I25.10 Atherosclerotic heart disease of native coronary artery without angina pectoris; I10 Essential (primary) hypertension; I25.2 Old myocardial infarction; Z79.899 Other long term (current) drug therapy; Z87.891 Personal history of nicotine dependence; Z95.5 Presence of coronary angioplasty implant and graft; Z97.8 Presence of other specified devices
CPT/HCPCS: 99212; G0463

== ENCOUNTER 2023-12-19 14:44 | Outpatient (CLI) | payer MEDICARE, SELFPAY ==
--- NOTE | 2023-12-19 14:47 | US_ITS ---
FINAL REPORT TECHNIQUE: Ultrasound images of the kidneys and bladder were obtained. CLINICAL HISTORY: RECURRING UTI COMPARISON: 09/15/2023 FINDINGS: The right kidney measures 9.1 cm in length. It is normal in echogenicity. There is no hydronephrosis. The left kidney measures 8.4 cm in length. It is normal in echogenicity. There is no hydronephrosis. IMPRESSION: No significant renal abnormality is identified. Reviewed, Interpreted and Dictated by Keron Velasquez MD Transcribed by Daisy Egan Authenticated and [facility]
== END 2023-12-19 23:59 | disposition home or self-care (01) ==
LOC: RAD 14:44
PROVIDERS: PCP Nurse Practitioner Family; Visit Provider Nurse Practitioner Family
DX: N39.0 Urinary tract infection, site not specified (principal)
CPT/HCPCS: 76770

== ENCOUNTER 2023-12-22 09:38 | Outpatient (POV) | payer MEDICARE, SELFPAY ==
[2023-12-22 10:14] VITALS: BP 156/62; PULSE 80; RESP 18; O2SAT 99; BMI 34.5
--- NOTE | 2023-12-22 10:39 | P.PCN_ITS ---
Procedure Date: 12/22/23 Time: 10:29 Anesthesiologist:: Tammie Amado APRN Complications:: None Pre-procedure Diagnosis:: Degenerative disc disease of lumbar spine with lumbar radiculopathy symptoms Post-procedure Diagnosis:: Same Indications for Procedure:: Patient is a pleasant 83-year-old female who presents today for intrathecal adjustment and reprogram as well as staple and suture removal. Today she rates her pain a 6 out of 10. She denies any new trauma or injury. Patient does state that overall the pump is still working well however feels like it could use some additional adjustment. She does also state that she just noticed in the last little bit that her lower right foot has more swelling and almost looks bruised. Patient states that she has not hit it on anything and feels like it did seem like it is just happened over the last week or so. Patient does have a prior history of fluid issues and was on Lasix on a regular basis however she states that recently her doctor did take her off of this. Patient is currently managed with morphine 1 mg/mL with a daily dose of 0.1002 mg/day. She denies any side effects from that medication. Her Doni has been reviewed and is appropriate. Physical Exam: General: Alert and oriented x3, no acute distress, pleasant and cooperative Lungs: Respirations even and unlabored, symmetrical chest expansion Eyes: PERRL Musculoskeletal: Flexion and extension of lumbar [spine] somewhat guarded secondary to pain, [antalgic gait noted] Neurological: Speech clear, no gross sensory deficit Skin: Incision sites are clean, dry, well-approximated with sutures and hao intact, minimal erythema noted Procedure Details:: Informed consent was obtained and the risk and benefits of the procedure were explained to the patient. Patient was taken to the procedure room where noninv asive monitoring was placed including noninvasive blood pressure cuff and pulse oximeter. Patient's pump was interrogated and was reprogrammed to morphine 0.1151/day. The patient tolerated the procedure well with no complications. Plan and Disposition:: Patient tolerated her intrathecal increase with no complications and was discharged neurologically intact. We were able to remove her sutures and hao and she was counseled to continue her postop restrictions for the full 6 weeks. I did executive assistant to general counsel the patient to keep an eye on her foot as the swelling is not necessarily something new however to see if there is any worsening after we give her her intrathecal increase today. Patient is agreeable to this plan of care. I did also talk to her regarding speaking to her primary care about still continuing the Lasix from time to time due to this being a chronic issue. Patient will return to clinic in 1 month for reevaluation of symptoms and plan of care. Patient was also set up on her PTM device today. We will see the patient back in the clinic at the next intrathecal refill. Patient has been instructed to contact the clinic with any concerns before the next appointment. Dr. Helms has reviewed this note and agrees with this plan of care. This note was dictated using voice recognition software and make contain errors or omissions. -- It Is medically necessary for this patient to continue to have their intrathecal pump refilled at regular intervals. This patient had an intrathecal pain pump implanted after meeting criteria of chronic intractable pain for greater than 3 months and failing conservative treatments. Patient has committed and been compliant to the treatment plan and all planned follow up care. Since implantat ion of the intrathecal pain pump, the patient has had decreased pain and been more functional. Oral medications have been reduced including intake of oral opioids. Patient continues to do well with intrathecal therapy with decrease in pain symptoms and increase in functional status. Stopping intrathecal medications can lead to life threatening withdrawal, seizures, cardiac arrest, severe pain, and possible . Pumps that are not refilled at regular intervals can be damages and cause and need for replacement. We continually titrate dose and concentration to optimize pain relief and function. We are limited in concentration for certain drugs to safely deliver medications through the pump and stay within the recommendations from the Polyanalgesic Consensus Committee Guidelines. Depending on dose and concentration these pumps may need to be refilled sooner than 3 months as we titrate.
== END 2023-12-22 23:59 | disposition home or self-care (01) ==
PROVIDERS: PCP Nurse Practitioner Family; Visit Provider Nurse Practitioner Family
DX: M51.36 Other intervertebral disc degeneration, lumbar region (principal)
CPT/HCPCS: 62368; 99212; G0463

== ENCOUNTER 2024-01-09 14:49 | Outpatient (POV) | payer MEDICARE, SELFPAY ==
[2024-01-09 15:24] VITALS: BP 132/54; PULSE 86; RESP 18; O2SAT 95; BMI 34.5
--- NOTE | 2024-01-09 15:30 | EXP.PAIN.PRO ---
Procedure Date: 01/09/24 Time: 15:31 Anesthesiologist:: Tammie Amado APRN Complications:: None Pre-procedure Diagnosis:: Degenerative disc disease of lumbar spine with lumbar radiculopathy symptoms Post-procedure Diagnosis:: Same Indications for Procedure:: Patient is a pleasant 83-year-old female who presents today for follow-up. Today she rates her pain a 5 out of 10. She denies any new trauma or injury. Patient does state that her intrathecal pump is helping and does make the pain much more feasible. Patient does state that she still has worse pain in the morning however she does take a Tylenol and that seems to help. Patient is currently managed with morphine 1 mg/mL with a daily dose of 0.1151 mg/day. Her Doni has been reviewed and is appropriate. Physical Exam: General: Alert and oriented x3, no acute distress, pleasant and cooperative Lungs: Respirations even and unlabored, symmetrical chest expansion Eyes: PERRL Musculoskeletal: Flexion and extension of lumbar [spine] somewhat guarded secondary to pain, [antalgic gait noted] Neurological: Speech clear, no gross sensory deficit Skin: Incision sites are clean, dry, well-approximated with no erythema noted Procedure Details:: Informed consent was obtained and the risk and benefits of the procedure were explained to the patient. Patient was taken to the procedure room where noninvasive monitoring was placed including noninvasive blood pressure cuff and pulse oximeter. Patient's pump was interrogated and was reprogrammed to morphine 0.126 7 mg/day. The patient tolerated the procedure well with no complications. Plan and Disposition:: Patient tolerated her intrathecal increase with no complications and was discharged neurologically intact. Patient did have the remainder of her hao removed with Steri-Strips applied. She was counseled to continue her postop restrictions the full 6 weeks. Patient was also asking about exercise such as the treadmill. She was counseled that she can do these activities. Patient is scheduled for her next intrathecal refill on February 27. She was counseled to call her office if she needs an additional visit between now and then. Patient is agreeable to this plan of care. We will see the patient back in the clinic at the next intrathecal refill. Patient has been instructed to contact the clinic with any concerns before the next appointment. Dr. Helms has reviewed this note and agrees with this plan of care. This note was dictated using voice recognition software and make contain errors or omissions. -- It Is medically necessary for this patient to continue to have their intrathecal pump refilled at regular intervals. This patient had an intrathecal pain pump implanted after meeting criteria of chronic intractable pain for greater than 3 months and failing conservative treatments. Patient has committed and been compliant to the treatment plan and all planned follow up care. Since implantation of the intrathecal pain pump, the patient has had decreased pain and been more functional. Oral medications have been reduced including intake of oral opioids. Patient continues to do well with intrathecal therapy with decrease in pain symptoms and increase in functional status. Stopping intrathecal medications can lead to life threatening withdrawal, seizures, cardiac arrest, severe pain, and possible . Pumps that are not refilled at regular intervals can be damages and cause and need for replacement. We continually titrate dose and concentration to optimize pain relief and function. We are limited in concentration for certain drugs to safely deliver medications through the pump and stay within the recommendations from the Polyanalgesic Consensus Committee Guidelines. Depending on dose and concentration these pumps may need to be refilled sooner than 3 months as we titrate.
== END 2024-01-09 23:59 | disposition home or self-care (01) ==
PROVIDERS: PCP Nurse Practitioner Family; Visit Provider Nurse Practitioner Family
DX: M51.16 Intervertebral disc disorders with radiculopathy, lumbar region (principal); Z95.5 Presence of coronary angioplasty implant and graft; Z97.8 Presence of other specified devices
CPT/HCPCS: 62368; 99213; G0463

== ENCOUNTER 2024-03-01 13:06 | Outpatient (CLI) | payer MEDICARE, SELFPAY ==
--- NOTE | 2024-03-01 13:13 | XR_ITS ---
PROCEDURE INFORMATION: Exam: XR Left Knee Exam date and time: 03/01/2024 1:36 PM Age: 83 years old Clinical indication: Pain; Knee; Left; Additional info: Left knee pain constant x 2 months TECHNIQUE: Imaging protocol: Radiologic exam of the left knee. Views: 3 views. COMPARISON: No relevant prior studies available. FINDINGS: Bones/joints: No fractures, dislocations, or bone lesions. No significant joint space narrowing or widening. Patella is well positioned. Soft tissues: No soft tissue gas, radiopaque foreign bodies, or masses. IMPRESSION: No acute findings in the left knee.
== END 2024-03-01 23:59 | disposition home or self-care (01) ==
LOC: RAD 13:08
PROVIDERS: PCP Nurse Practitioner Family; Visit Provider Physician Assistant
DX: M25.562 Pain in left knee (principal)
CPT/HCPCS: 73562

== ENCOUNTER 2024-03-02 14:08 | Day surgery (SDC) | payer MEDICARE, SELFPAY ==
[2024-03-02 14:32] VITALS: BP 150/64; PULSE 74; RESP 16; TEMP 36.3; O2SAT 97; BMI 34.7
[2024-03-02 14:41] VITALS: BP 160/70; PULSE 76; RESP 18; O2SAT 97
[2024-03-02 14:48] VITALS: BP 160/70; PULSE 76; RESP 18; O2SAT 97
--- NOTE | 2024-03-02 14:55 | EXP.PAIN.PRO ---
Procedure Date: 03/02/24 Time: 14:55 Anesthesiologist:: Rick Leach CRNA Complications:: None Pre-procedure Diagnosis:: Degenerative disc lumbar spine multilevels. Lumbar radiculopathy. Lumbar postlaminectomy syndrome. Post-procedure Diagnosis:: Same. Indications for Procedure:: Patient is a very pleasant 83-year-old female who comes our clinic today for intrathecal pain pump interrogation and refill. Patient is currently being managed with morphine sulfate 1 mg/mL at a rate of 0.1267 mg/day. Patient requesting increase in the pump rate due to increase in low back pain as well as torn meniscus left knee. She rates her pain 6/10. She does not reporting side effects or complications. Patient is awake alert [place] x 3. In no acute distress. Flexion-extension lumbar spine somewhat guarded secondary to pain. Deep tendon reflexes upper lower extremities normal. Motor strength upper lower extremities normal. There is no gross sensory deficit. Gait is normal. Procedure Details:: Details of the procedure explained to the patient. The patient taken procedure room placed in the sitting position. They over the pump was cleansed using chlorhexidine as a cleansing solution. The pump was interrogated. The pump was accessed with ease using a 22-gauge inch and half needle. 7.5 mL of solution was withdrawn and discarded appropriate. The pump was then filled with 20 cc of solution containing morphine sulfate 1 mg/mL. The pump rate will be increased by 10%. The new rate will be 0.1393 milligrams per day. Patient tolerated procedure without difficulty. There are no complications. Plan and Disposition:: Patient was discharged without incident.
[2024-03-02 15:00] VITALS: BP 165/57; PULSE 67; RESP 16; O2SAT 98
== END 2024-03-02 15:00 | disposition home or self-care (01) ==
PROVIDERS: PCP Nurse Practitioner Family; Visit Provider Nurse Anesthetist, Certified Registered
DX: M51.16 Intervertebral disc disorders with radiculopathy, lumbar region (principal); M96.1 Postlaminectomy syndrome, not elsewhere classified
CPT/HCPCS: 62370

== ENCOUNTER → 2024-04-12 20:12 | Outpatient (CLI) | payer MEDICARE, SELFPAY | LOC: SL 20:14 | PROVIDERS: PCP Nurse Practitioner Family; Visit Provider Specialist | DX: G47.33 Obstructive sleep apnea (adult) (pediatric) (principal); G47.31 Primary central sleep apnea | CPT/HCPCS: 95811 ==

== ENCOUNTER 2024-05-14 09:21 | Outpatient (CLI) | payer MEDICARE, SELFPAY ==
[2024-05-14 10:09] LABS: Basophils # 0.1 K/mm3 (0-0.2); Basophils % 0.7 % (0.1-2.0); Eosinophils # 0.2 K/mm3 (0.0-0.4); Eosinophils % 1.9 % (0.1-12.0); Hematocrit 31.8 % (37.0-47.0); Hemoglobin 9.5 g/dL (12.2-16.2); Lymphocytes # 3.2 K/mm3 (0.7-4.5); Lymphocytes % 37.4 % (10-50); Mean Corpuscular HGB Conc 29.9 g/dL (31.8-35.4); Mean Corpuscular Hemoglobin 24.9 pg (27.0-31.2); Mean Corpuscular Volume 83.2 fl (81-99); Mean Platelet Volume 11.9 fl (7.4-10.4); Monocytes # 0.5 K/mm3 (0.1-1.0); Monocytes % 6.2 % (1.7-9.3); Neutrophils # 4.6 K/mm3 (1.8-7.8); Neutrophils % 53.6 % (37.0-80.0); Platelet Count 384 K/mm3 (142-424); Red Blood Count 3.82 M/mm3 (4.20-5.40); Red Cell Distribution Width 15.9 % (11.5-17.5); White Blood Count 8.6 K/mm3 (4.8-10.8)
[2024-05-14 10:33] LABS: Creatinine,Urine Random 60 mg/dL (Not Estab.)
[2024-05-14 10:54] LABS: Alanine Aminotransferase 20 U/L (12-78); Albumin Level 4.1 g/dl (3.5-5.0); Alkaline Phosphatase 71 U/L (38-126); Anion Gap 14.7 mEq/L (5-15); Aspartate Amino Transferase 29 U/L (14-36); Bilirubin,Direct 0.2 mg/dl (0.0-0.4); Bilirubin,Indirect 0.1 mg/dL (0.0-0.9); Bilirubin,Total 0.3 mg/dl (0.2-1.3); Blood Urea Nitrogen 41 mg/dl (7-17); Calcium 9.5 mg/dl (8.4-10.2); Carbon Dioxide 24 mmol/L (22.0-30.0); Chloride 103 mmol/L (98-107); Chol/HDL Ratio 1.7 (1-3.5); Cholesterol 142 mg/dl (140-200); Estimated Glomerular Filt Rate 21 ml/min (>60); GFR (African American) 26 ML/MIN (>60); Glucose 106 mg/dl (74-100); HDL Cholesterol 84 mg/dl (40-60); Magnesium 1.6 mg/dl (1.6-2.3); Potassium 4.7 mmoL/L (3.5-5.1); Sodium 137 mmol/L (136-145); Total Protein,Serum 6.3 g/dl (6.3-8.2); Triglycerides 173 mg/dl (30-150); VLDL Cholesterol 35 mg/dL (0-40)
[2024-05-14 10:57] LABS: Albumin Level 4.2 g/dl (3.5-5.0); Anion Gap 16.5 mEq/L (5-15); Blood Urea Nitrogen 40 mg/dl (7-17); Calcium 9.4 mg/dl (8.4-10.2); Carbon Dioxide 23 mmol/L (22.0-30.0); Chloride 102 mmol/L (98-107); Estimated Glomerular Filt Rate 21 ml/min (>60); GFR (African American) 26 ML/MIN (>60); Glucose 106 mg/dl (74-100); Phosphorous 4.7 mg/dl (2.5-4.5); Potassium 4.5 mmoL/L (3.5-5.1); Sodium 137 mmol/L (136-145)
[2024-05-14 11:06] LABS: Direct LDL Cholesterol 42.79 mg/dL (100-129)
[2024-05-14 11:11] LABS: Free T4 (Free Thyroxine) 1.47 ng/dl (0.78-2.19)
[2024-05-14 11:12] LABS: 25-OH Vitamin D, Total 47.6 ng/mL (30-100)
[2024-05-16 18:08] LABS: Cystatin C 2.57 mg/L (0.87-1.12)
[2024-05-17 11:22] LABS: Tandem-R Ostase 11.6 ug/L (.)
[2024-05-21 01:23] LABS: C-Telopeptide Serum 565 pg/mL (.)
[2024-05-21 08:24] LABS: Serial Monitoring PDF SCANNED IMAGE
== END 2024-05-14 23:59 | disposition home or self-care (01) ==
LOC: LAB 09:21
PROVIDERS: Physician Assistant; PCP Nurse Practitioner Family; Visit Provider Internal Medicine Nephrology
DX: E78.5 Hyperlipidemia, unspecified (principal); E66.812 Obesity, class 2; I10 Essential (primary) hypertension; I25.10 Atherosclerotic heart disease of native coronary artery without angina pectoris; E03.9 Hypothyroidism, unspecified; Z87.19 Personal history of other diseases of the digestive system; N18.31 Chronic kidney disease, stage 3a; M81.0 Age-related osteoporosis without current pathological fracture
CPT/HCPCS: 36415; 80048; 80061; 80069; 80076; 82043; 82306; 82523; 82570; 82610; 83735; 84080; 84439; 84443; 85025

== ENCOUNTER 2024-05-16 09:53 | Outpatient (CLI) | payer MEDICARE, SELFPAY | END 2024-05-16 23:59 | disposition home or self-care (01) | LOC: RT 09:54 | PROVIDERS: PCP Nurse Practitioner Family; Visit Provider Internal Medicine Pulmonary Disease | DX: R06.09 Other forms of dyspnea (principal) | CPT/HCPCS: 94060 ==

== ENCOUNTER 2024-06-22 08:25 | Outpatient (CLI) | payer MEDICARE, SELFPAY ==
--- NOTE | 2024-06-22 08:31 | CT_ITS ---
FINAL REPORT TECHNIQUE: Axial CT images were performed from the lung bases through the iliac crests. Coronal and sagittal reformats were submitted.This study was performed with techniques to keep radiation doses as low as reasonably achievable (ALARA). Individualized dose reduction techniques using automated exposure control or adjustment of mA and/or kV according to the patient''''s size were employed. CLINICAL HISTORY: Abdominal pain, history of pancreatitis COMPARISON: 09/05/2023 FINDINGS: Exam is limited without the benefit of IV contrast. ABDOMEN: The lung bases are clear. The liver parenchyma is homogeneous. There is pneumobilia. The gallbladder is surgically absent. The spleen and adrenal glands are unremarkable. Previously seen abnormal attenuation surrounding the pancreas has resolved. There is no renal stone or hydronephrosis. The GI tract demonstrates postoperative changes to the stomach from gastric bypass. There is no evidence of small bowel obstruction. The appendix is not visualized but there are no secondary signs of appendicitis. There is diverticulosis with no evidence of diverticulitis. There is no abdominal lymphadenopathy or ascites. No acute osseous changes are seen. IMPRESSION: Interval resolution of previously seen acute pancreatitis. Otherwise, no acute intra-abdominal abnormality. Reviewed, Interpreted and Dictated by Melinda Gillette MD Transcribed by Yolanda Moura Authenticated and [facility]
[2024-06-22 09:14] LABS: Blood Urea Nitrogen 43 mg/dl (7-17); Estimated Glomerular Filt Rate 20 ml/min (>60); GFR (African American) 25 ML/MIN (>60)
== END 2024-06-22 23:59 | disposition home or self-care (01) ==
LOC: RAD 08:26
PROVIDERS: PCP Nurse Practitioner Family; Visit Provider Nurse Practitioner Family
DX: R10.11 Right upper quadrant pain (principal); Z87.19 Personal history of other diseases of the digestive system
CPT/HCPCS: 36415; 74150; 82565; 84520

== ENCOUNTER 2024-06-22 10:01 | Day surgery (SDC) | payer MEDICARE, SELFPAY ==
[2024-06-22 10:18] VITALS: BP 156/60; PULSE 69; RESP 16; TEMP 36.8; O2SAT 99; BMI 35.6
--- NOTE | 2024-06-22 10:22 | EXP.PAIN.PRO ---
Procedure Date: 06/22/24 Time: 10:45 Anesthesiologist:: Tammie Amado APRN Complications:: None Pre-procedure Diagnosis:: Degenerative disc disease of lumbar spine with lumbar radiculopathy symptoms Post-procedure Diagnosis:: Same Indications for Procedure:: Patient is a pleasant 83-year-old female who presents today for intrathecal refill and reprogram. Today she rates her pain a 7out of 10. She denies any new injuries or falls however does state that she would like an increase on her intrathecal pain pump dosage. She does also state that she feels like she is having some swelling into her right ankle and right foot. Patient is already on fluid pills from her PCP. Patient has been on this medication for some time and states they did add Lasix to her spironolactone. She also states that she has been having increased pancreas issues and that she is scheduled for a CT later on today. Patient states that this is all affecting her increased pain. She is currently managed with morphine 1 mg/mL with a daily dose of 0.1393 mg/day. She denies any side effects from this medication. She is also managed with compounded cream from our office. Her Doni has been reviewed and is appropriate. Physical Exam: General: Alert and oriented x3, no acute distress, pleasant and cooperative Lungs: Respirations even and unlabored, symmetrical chest expansion Eyes: PERRL Musculoskeletal: Flexion and extension of lumbar [spine] somewhat guarded secondary to pain, [antalgic gait noted] Neurological: Speech clear, no gross sensory deficit Procedure Details:: Informed consent was obtained and the risk and benefits of the procedure were explained to the patient. The patient had noninvasive monitoring placed including noninvasive blood pressure cuff and pulse oximeter. Patient's pump was interrogated. The area over the pump was cleansed with chlorhexidine as a cleansing solution. In sterile fashion the pump was accessed with a 22-gauge needle. Approximately 3.5 mls of the pump solution was removed and discarded appropriately. The pump was then refilled with 20 mL's of morphine 1 mg/mL. The needle was withdrawn and a bandage was placed over the puncture site. The infusion rate was reprogrammed and increased 10% to 0.1533mg/day. The patient tolerated well with no complication. Plan and Disposition:: Patient tolerated the procedure well with no complications and was discharged neurologically intact. I did discuss with the patient to keep our office posted on how her progression goes with the pancreas imaging and increased swelling in her right foot and ankle. Patient does have significant heart history as well and I did discuss with the patient that she may need a updated cardiac workup. We will continue to monitor this in future. Patient will return to clinic on or before their next intrathecal refill date. We will see the patient back in the clinic at the next intrathecal refill. Patient has been instructed to contact the clinic with any concerns before the next appointment. Dr. Helms has reviewed this note and agrees with this plan of care. This note was dictated using voice recognition software and make contain errors or omissions. -- It Is medically necessary for this patient to continue to have their intrathecal pump refilled at regular intervals. This patient had an intrathecal pain pump implanted after meeting criteria of chronic intractable pain for greater than 3 months and failing conservative treatments. Patient has committed and been compliant to the treatment plan and all planned follow up care. Since implantation of the intrathecal pain pump, the patient has had decreased pain and been more functional. Oral medications have been reduced including intake of oral opioids. Patient continues to do well with intrathecal therapy with decrease in pain symptoms and increase in functional status. Stopping intrathecal medications can lead to life threatening withdrawal, seizures, cardiac arrest, severe pain, and possible . Pumps that are not refilled at regular intervals can be damages and cause and need for replacement. We continually titrate dose and concentration to optimize pain relief and function. We are limited in concentration for certain drugs to safely deliver medications through the pump and stay within the recommendations from the [employer] Consensus Committee Guidelines. Depending on dose and concentration these pumps may need to be refilled sooner than 3 months as we titrate. A UDS is needed to verify patient's compliance with our office pain contract. This is ordered based off specific treatments related to chronic pain with the potential to abuse certain medications.
[2024-06-22 10:41] VITALS: BP 139/64; PULSE 74; RESP 18; O2SAT 99
[2024-06-22 10:42] VITALS: BP 139/64; PULSE 74; RESP 18; O2SAT 99
[2024-06-22 10:54] VITALS: BP 159/70; PULSE 77; RESP 16; TEMP 36.8; O2SAT 99
== END 2024-06-22 10:54 | disposition home or self-care (01) ==
PROVIDERS: PCP Nurse Practitioner Family; Visit Provider Nurse Practitioner Family
DX: M51.16 Intervertebral disc disorders with radiculopathy, lumbar region (principal)
CPT/HCPCS: 62370

== ENCOUNTER 2024-06-22 11:22 | Emergency (ER) | payer MEDICARE, SELFPAY ==
[2024-06-22 11:23] VITALS: BP 209/86; PULSE 77; RESP 16; TEMP 36.6; O2SAT 96; BMI 35.6
--- NOTE | 2024-06-22 11:27 | PC.NURSE ---
Called radiology to obtain to prelim or read of routine ct scan of ABD from this AM as pt states it was abnormal and told to come to the ER .
[2024-06-22 11:56] VITALS: BP 179/90; PULSE 68; O2SAT 96
[2024-06-22] MEDS: DEXAMETHASONE 4MG TABLET 10 MG PO (11:57)
--- NOTE | 2024-06-22 12:06 | ED_ITS ---
Discharge Plan Disposition Patient Disposition: Home, Self-Care Prescriptions Prescriptions: New nitrofurantoin monohyd/m-cryst [Macrobid] 100 mg capsule 100 mg PO BID 5 Days Qty: 10 0RF Rx Instructions: must administer with a meal/food dexamethasone 6 mg tablet 6 mg PO DAILY Qty: 5 0RF No Action aspirin [Adult Low Dose Aspirin] 81 mg tablet,delayed release (DR/EC) 81 mg PO DAILY atorvastatin [Lipitor] 40 mg tablet 40 mg PO DAILY losartan [Cozaar] 50 mg tablet 50 mg PO DAILY spironolactone 25 mg tablet 25 mg PO BID ascorbic acid (vitamin C) 500 mg capsule 500 mg PO Q6H triamcinolone acetonide 0.1 % cream 1 applic topical BID Qty: 15 1RF azelastine 137 mcg (0.1 %) aerosol,spray 2 spray intranasal HS PRN (Reason: Dry Nasal Passages) Rx Instructions: administer into each nostril (DME) oxygen-air delivery systems Device See Rx Instructions .Route Rx Instructions: 2 liters at night gabapentin 10 % cream, metered-dose applicator 1 ea topical DIRECTED Rx Instructions: compound cream ketamine 5 % cream, metered-dose applicator 1 ea topical DIRECTED Rx Instructions: compound cream baclofen 2 % cream, metered-dose applicator 1 ea topical DIRECTED PRN (Reason: Pain) Rx Instructions: compound cream Trulance 3 mg tablet 3 mg PO DAILY Patient Comments: TAKE 1 TABLET BY MOUTH ONCE DAILY BEFORE A MEAL FOR CONSTIPATION [place] Saline 0.65 % aerosol,spray 1 spray intranasal TID Qty: 50 3RF Dulera 100-5 mcg/actuation HFA aerosol inhaler 2 puff inhalation BID 90 Days Qty: 13 2RF albuterol sulfate 90 mcg/actuation HFA aerosol inhaler 2 puff inhalation Q4HP PRN (Reason: shortness of breath or wheezing) Qty: 8.5 5RF ipratropium-albuterol 0.5 mg-3 mg(2.5 mg base)/3 mL solution for nebulization 3 ml inhalation QID PRN (Reason: shortness of breath or wheezing) 90 Days Qty: 90 2RF trazodone 50 mg tablet See Rx Instructions .ROUTE .COMPLEX Qty: 180 3RF Dose Instruction: TAKE 2 TABLETS (100 MG) AT BEDTIME NIGHTLY FOR SLEEP Rx Instructions: TAKE 2 TABLETS (100 MG) AT BEDTIME NIGHTLY FOR SLEEP levothyroxine 75 mcg tablet See Rx Instructions .ROUTE .COMPLEX Qty: 90 3RF Dose Instruction: TAKE 1 TABLET DAILY FOR THYROID Rx Instructions: TAKE 1 TABLET DAILY FOR THYROID ursodiol 300 mg capsule See Rx Instructions .ROUTE .COMPLEX Qty: 180 3RF Dose Instruction: TAKE 2 CAPSULES DAILY Rx Instructions: TAKE 2 CAPSULES DAILY (DME) nebulizers [Aeroneb Go Nebulizer] Misc See Rx Instructions .Route Rx Instructions: As directed fenofibrate micronized 67 mg capsule 67 mg PO DAILY morphine (PF) 1 mg/mL Solution 1 mg intrathecal CONT Rx Instructions: REFER TO EMR FOR CURRENT DAILY DOSE nitroglycerin 0.4 mg tablet, sublingual 0.4 mg sublingual Q5MINP PRN (Reason: chest pain) Rx Instructions: do not exceed 3 doses per episode. 1 SL tab every 5min x 3 doses. If chest pain not resolved after 3rd dose, then call 911. pantoprazole [Protonix] 40 mg tablet,delayed release (DR/EC) See Rx Instructions .ROUTE .COMPLEX Rx Instructions: TAKE 1 TABLET DAILY FOR ACID REFLUX estradiol [Estrace] 0.01 % (0.1 mg/gram) cream 1 applic vaginal DIRECTED Rx Instructions: Using finger technique daily for two weeks and then 3 x weekly vaginally thereafter methenamine hippurate 1 gram Tablet 1 g PO BID Referrals Follow up/Referrals: Karley Messer APRN [Primary Care Provider] - See instructions Activity Restrictions/Add. Instructions Additional Instructions/Restrictions: Follow-up with your family doctor regarding this visit to the emergency department within 48 business hours. Steroid each morning for the next 5 days, antibiotic twice daily for the next 5 days. Clinical Impressions Clinical Impression: Acute UTI, Lumbar radiculopathy Print Language Print Language: Guatemalan Discharge ED Provider: Doug Robin General Adult HPI General Chief complaint: PAIN Stated complaint: abnormal ct, right side pain Time Seen by Provider: 06/22/24 11:25 Mode of Arrival: Wheelchair Source of Information: Patient Limitations: No Limitations Description of Symptoms (Recalled from ER Triage Doc. by RN): Patient reports right sided hip pain that radiates down her right leg. States it began hurting after her ct scan she had this morning. History of Present Illness HPI narrative: Please note that above description of symptoms, in this electronic medical record under categorization of recalled from ER triage doctor by RN are reflective of an initial nursing assessment, however, is not reflective of my full history and physical exam that was personally taken and clarified. Consequentially, this preceding description of symptoms, which may include the patient's categorized chief complaint in the EMR, do not reflect my personal clinical impression, and the ultimate description of history of present illness and patient stated complaints should be deferred to this section of the note. Unless stated otherwise or congruent with this section of the note, additional signs, symptoms, or incongruence should be interpreted as inaccurate with my clinical impression. Related Data Home Medications ?Medication ?Instructions ?Recorded ?Confirmed aspirin 81 mg tablet,delayed 81 mg PO DAILY 08/16/17 06/22/24 release (Adult Low Dose Aspirin) nitroglycerin 0.4 mg sublingual 0.4 mg sublingual Q5MINP PRN chest 10/18/22 06/22/24 tablet pain nebulizers (Aeroneb Go Nebulizer) 11/04/22 06/22/24 baclofen 2 % cream in metered-dose 1 ea topical DIRECTED PRN Pain 12/27/22 06/22/24 applicator gabapentin 10 % cream in 1 ea topical DIRECTED Pain 12/27/22 06/22/24 metered-dose applicator ketamine 5 % cream in metered-dose 1 ea topical DIRECTED 12/27/22 06/22/24 applicator oxygen-air delivery systems 12/27/22 06/22/24 fenofibrate micronized 67 mg 67 mg PO DAILY 09/03/23 06/22/24 capsule azelastine 137 mcg (0.1 %) nasal 2 spray intranasal HS PRN Dry 10/11/23 06/22/24 spray Nasal Passages ascorbic acid (vitamin C) 500 mg 500 mg PO Q6H 11/14/23 06/22/24 capsule atorvastatin 40 mg tablet (Lipitor) 40 mg PO DAILY 11/14/23 06/22/24 losartan 50 mg tablet (Cozaar) 50 mg PO DAILY 11/14/23 06/22/24 spironolactone 25 mg tablet 25 mg PO BID 11/14/23 06/22/24 estradiol 0.01% (0.1 mg/gram) 1 applic vaginal DIRECTED 12/02/23 06/22/24 vaginal cream (Estrace) pantoprazole 40 mg tablet,delayed See Rx Instructions .Route .COMPLEX 12/02/23 06/22/24 release (Protonix) morphine (PF) 1 mg/mL injection 1 mg intrathecal CONT Pain 12/08/23 06/22/24 solution methenamine hippurate 1 gram tablet 1 g PO BID kidneys 12/22/23 06/22/24 plecanatide 3 mg tablet (Trulance) 3 mg PO DAILY 04/10/24 06/22/24 Previous Rx's ?Medication ?Instructions ?Recorded sodium chloride 0.65 % nasal spray 1 spray intranasal TID #50 mL 10/17/23 aerosol ([place] Saline) triamcinolone acetonide 0.1 % 1 applic topical BID #15 grams 11/14/23 topical cream levothyroxine 75 mcg tablet See Rx Instructions .Route 02/12/24 .COMPLEX #90 tabs trazodone 50 mg tablet See Rx Instructions .Route 02/12/24 .COMPLEX #180 tabs ursodiol 300 mg capsule See Rx Instructions .Route 04/11/24 .COMPLEX #180 caps albuterol sulfate 90 mcg/actuation 2 puff inhalation Q4HP PRN 05/16/24 aerosol inhaler shortness of breath or wheezing #8.5 grams ipratropium 0.5 mg-albuterol 3 mg 3 ml inhalation QID PRN shortness 05/16/24 (2.5 mg base)/3 mL nebulization of breath or wheezing 90 days #90 soln mL mometasone-formoterol HFA 100 2 puff inhalation BID 90 days #13 05/16/24 mcg-5 mcg/actuation aerosol grams inhaler (Dulera) dexamethasone 6 mg tablet 6 mg PO DAILY #5 tabs 06/22/24 nitrofurantoin 100 mg PO BID 5 days #10 caps 06/22/24 monohydrate/macrocrystals 100 mg capsule (Macrobid) Allergies Allergy/AdvReac Type Severity Reaction Status Date / Time lisinopril Allergy Intermediate cough Verified 06/22/24 10:17 atenolol (ATENOLOL) Allergy Unknown ASTHMA Verified 06/22/24 10:17 ATTACK ciprofloxacin (From CIPRO) Allergy Unknown SWELLING/RA Verified 06/22/24 10:17 SH codeine (CODEINE) Allergy Unknown I-RASH Verified 06/22/24 10:17 cortisone (CORTISONE) Allergy Unknown I-HIVES/SOB Verified 06/22/24 10:17 erythromycin base Allergy Unknown I-RASH Verified 06/22/24 10:17 (ERYTHROMYCIN BASE) hydrocodone (From LORTAB) Allergy Unknown NA-NAUSEA Verified 06/22/24 10:17 latex (LATEX) Allergy Unknown I-HIVES Verified 06/22/24 10:17 loratadine (LORATADINE) Allergy Unknown SWELLING Verified 06/22/24 10:17 metronidazole (From FLAGYL) Allergy Unknown NA-DIZZINES Verified 06/22/24 10:17 S minocycline (From MINOCIN) Allergy Unknown I-RASH Verified 06/22/24 10:17 Penicillins (PENICILLINS) Allergy Unknown I-RASH Verified 06/22/24 10:17 Sulfa (Sulfonamide Allergy Unknown I-RASH Verified 06/22/24 10:17 Antibiotics) (SULFA (SULFONAMIDE ANTIBIOTICS)) carvedilol Allergy Difficulty Verified 06/22/24 10:17 Breathing metoprolol Allergy Difficulty Verified 06/22/24 10:17 Breathing fluticasone (From Advair AdvReac Fever Verified 06/22/24 10:17 Diskus) levofloxacin AdvReac Unknown Verified 06/22/24 10:17 allergy reaction salmeterol (From Advair AdvReac Fever Verified 06/22/24 10:17 Diskus) [facility] Disclaimer: The information contained in this section may have been updated after the patient was seen, as this information can be updated by other users. 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 Functional abdominal pain syndrome Chronic neck pain Internal carotid artery stenosis Severe sleep apnea Neck pain Obesity CAD in [place] artery Pulmonary hypertension History of sleep apnea Nocturnal hypoxia Dyspnea on exertion History of smoking 30 or more pack years Asthma Dizziness Left-sided weakness History of stent insertion of renal artery Renal artery stenosis Diastolic heart failure Right-sided congestive heart failure History of sleep apnea History of asthma Pleural effusion, bilateral Pneumonia Acute respiratory failure with hypoxia Hypoxemia Bradycardia Spinal stenosis of lumbar region Dyspnea Cough UTI (urinary tract infection) Vaginal yeast infection Hypertensive urgency Chronic UTI Insomnia Vitamin D deficiency Overactive bladder Excessive cerumen in both ear canals Persistent dry cough Asthma Osteoporosis Interstitial cystitis Renal failure Diverticulosis GERD (gastroesophageal reflux disease) Heart disease History of asthma Dilatation of bladder DDD (degenerative disc disease) Back pain Gallstones UTI (urinary tract infection) Left lower lobe pneumonia Atelectasis Renal insufficiency Anemia CAD (coronary artery disease) Benign paroxysmal vertigo Surgical History H/O gastric bypass History of renal stent H/O: hysterectomy Hx of cataract removal with insertion of prosthetic lens Hx of colonoscopy Status post rotator cuff surgery H/O heart artery stent S/P cardiac catheterization History of biopsy of bladder H/O breast biopsy History of dilation and curettage Previous back surgery Hx of cholecystectomy Family History Father Coronary artery disease Hyperlipidemia Hypertension Stroke Mother Coronary artery disease Heart attack Hyperlipidemia Hypertension Brother Cancer hepatic Coronary artery disease Diabetes Heart attack Hyperlipidemia Hypertension Stroke Sister Cancer ovarian Hyperlipidemia Hypertension Diabetes Son Coronary artery disease Heart attack Daughter Hyperlipidemia Hypertension Social History Smoking Status: Never smoker years smoked: 30 second hand exposure: No alcohol intake: never substance use type: denies use current occupational status: retired Travel in the last 8 weeks: None household members: none housing: house current occupational exposures/hazards: No caffeine: Yes Have you lived/traveled outside [place] in past 30 days?: No Contact w/someone who lives/traveled outside [place] past 30 days?: No Exposure to someone with infectious disease in past 14 days?: No Do you have a fever (greater than 100.4 F or 38 C)?: No Have you tested positive for COVID-19: No Exposed to someone with COVID-19 in past 14 days?: No Do you have a sore throat?: No Do you have a cough?: No Do you have any weakness?: No Do you have any diarrhea?: No Are you experiencing any unusual bleeding?: No Do you have any muscle aches/pain?: Yes Do you have any abdominal pain?: Yes Are you experiencing loss of taste or smell?: No Other Medical History Have you received the Flu Vaccine for this season: No Have you received the Pneumonia Vaccine: No ROS Obtained: Yes All systems reviewed & no additional complaints except as documented Physical Exam General General appearance: alert Head Head exam: atraumatic and normocephalic Eye Eye exam: Present normal appearance, PERRL and EOMI Neck Neck exam: Present normal inspection, full ROM and trachea midline Respiratory Respiratory exam: Absent respiratory distress, wheezes, stridor, accessory muscle use or prolonged expiratory phase Cardiovascular Cardiovascular exam: Present other (Pulses equal symmetric in upper and lower extremities) Abdominal Exam Abdominal exam: Present soft; Absent distention, tenderness or pulsatile mass Extremities Exam Extremities exam: Absent edema Neurological Exam Neurological exam: Present alert, oriented X3 and CN II-XII intact; Absent motor sensory deficit Skin Skin exam: Present warm and dry; Absent diaphoresis or erythema Medical Decision Making Medical Records Medical records reviewed: Yes I reviewed the patient's medical records. Screening: Per USPSTF and CDC recommendations, given the prevalence of disease in our region, it is our hospital?s policy to screen for HIV and viral Hepatitis for all patients aged 18 and over and those with ongoing risk factors. Doni Inquiry Pt receiving controlled substance: No Doni was queried for this patient: No Vital Signs: 06/22/24 11:23 06/22/24 11:56 06/22/24 12:31 Temperature 97.9 F Temperature Source Oral Pulse Rate 68 74 Pulse Rate [Radial] 77 Respiratory Rate 16 Blood Pressure 179/90 H 139/50 L Blood Pressure [Right Arm] 209/86 H Blood Pressure Mean [Right Arm] 127 Blood Pressure Source [Right Arm] Automatic Cuff Blood Pressure Position [Right Arm] Sitting 02 Sat by Pulse Oximetry 96 96 97 Oxygen Delivery Method Room Air Room Air Room Air Lab Data Lab Results 06/22/24 12:00: Urine Color Yellow, Urine Appearance Clear, Urine pH 6.0, Ur Specific [place] 1.015, Urine Protein Negative, Urine Glucose (UA) Negative, Urine Ketones Negative, Urine Blood Negative, Urine Nitrate Positive A, Urine Bilirubin Negative, Urine Urobilinogen 0.2, Ur Leukocyte Esterase 2+ A, Urine RBC None, Urine WBC 20-50, Ur Squamous Epith Cells 3-5, Urine Bacteria 2+ Orders (Tests/Meds): ED MEDICATIONS Discontinued Medications Generic Name Dose Route Start Last Admin Trade Name Elise PRN Reason Stop Dose Admin Dexamethasone 10 mg 06/22/24 11:50 06/22/24 11:57 Dexamethasone 4mg Tablet PO 06/22/24 11:51 10 mg ONCE ONE Administration Nitrofurantoin Macrocrystals 100 mg 06/22/24 12:43 06/22/24 12:50 Nitrofurantoin 100mg Capsule PO 06/22/24 12:44 100 mg ONCE ONE Administration ORDERS Category Date Time Status HIV Combo Stat Lab 06/22/24 11:33 Ordered Hepatitis C Ab Qual. W/ RFX Stat Lab 06/22/24 11:33 Ordered UA [Urinalysis and Microscopic] Stat Lab 06/22/24 12:00 Completed Urine Culture Stat Micro 06/22/24 12:00 Received Medical Decision Narrative: 83-year-old female presenting with right lower extremity pain. She states that she was getting a CT scan earlier today and while she was lying in the CT scanner, she started having severe shooting right sided leg pain. Starts in right hip, radiates anteriorly down into the anterior right thigh. Was severe in intensity at first, now mild in intensity and not really bothering her, came in for further evaluation. History was obtained via conversation with patient. On arrival, patient hemodynamically stable, alert, oriented x4, appropriate, GCS 15, moving all extremities spontaneously, pupils equal and reactive to light. Full physical exam performed and significant for well-appearing female no acute distress. Speaking in full sentences, does not appear to elicit pain when I range right lower extremity. Abdomen soft, nontender, nondistended. No evidence of hernia. Differential includes radiculopathy, neuropathy, UTI, nephrolithiasis, among others. Because I feel this is most consistent with radiculopathy given that she was laying flat in CT scanner when had this acute onset sharp pain shooting down her leg, Decadron p.o. was given. Labs were considered, but drawn this morning. On independent interpretation of labs just prior to arrival, patient has what appears to be stable CKD. Urinalysis obtained here. On independent interpretation, patient has nitrite positive UTI. Macrobid given. Patient did not have any reactions to these medications, although she stated that she would. Independent interpretation of patient's CT scan with no acute intra-abdominal abnormality. Does not go all the way down to the bladder, so cannot evaluate distal ureters, but no evidence of hydronephrosis. Because patient at baseline without signs or symptoms of clinical decompensation, deemed appropriate for discharge. Results were relayed to patient who voiced understanding and were agreeable to outpatient management and follow up. I discussed my clinical impression with patient and answered all questions. At this time, the evidence for any other entities in the differential is insufficient to warrant any further testing or ED observation. This was explained as well. Advisory was given that persistent or worsening symptoms require further evaluation. I confirmed the understanding of this discussion. Strickler Attendant disclaimer Much of this encounter note is an electronic rotary dryer operator spoken language to printed text. Electronic rotary dryer operator of the spoken language may permit errors. Although I have reviewed the note, some errors may still exist. Critical Care Critical Care Time Critical Care Time: No
[2024-06-22 12:16] LABS: Microscopic, Urine URINE MICROSCOPIC (MICROSCOPIC)
[2024-06-22 12:20] LABS: Appearance,Urine CLEAR (Clear); Bilirubin,Urine Negative (Negative); Blood, Urine Negative (Negative); Color,Urine YELLOW (Yellow); Glucose,Urine (UA) Negative (Negative); Ketones,Urine Negative (Negative); Leukocyte Esterase,Urine 2+ (Negative); Nitrate,Urine POSITIVE (Negative); Protein,Urine Negative (Negative); Specific Gravity, Urine 1.015 (1.005-1.030); Urobilinogen,Urine 0.2 EU/dl (0.2)
[2024-06-22 12:31] VITALS: BP 139/50; PULSE 74; O2SAT 97
[2024-06-22 12:40] LABS: Bacteria,Urine 2+ /lpf; WBC,Urine 20-50 #/hpf (0-3)
[2024-06-22] MEDS: NITROFURANTOIN 100MG CAPSULE 100 MG PO (12:50)
[2024-06-22 12:51] VITALS: BP 147/57; PULSE 65; O2SAT 96
[2024-06-22 13:13] VITALS: BP 147/57; PULSE 74; RESP 16; TEMP 36.7; O2SAT 99
--- NOTE | 2024-06-24 10:36 | PC.NURSE ---
URINE CULTURE DISCUSSED WITH DR HELLER, NO NEW ORDERS
== END 2024-06-22 13:23 | disposition home or self-care (01) ==
PROVIDERS: Emergency Provider Emergency Medicine; PCP Nurse Practitioner Family
DX: N39.0 Urinary tract infection, site not specified (principal); M54.16 Radiculopathy, lumbar region; M25.551 Pain in right hip; M79.604 Pain in right leg
CPT/HCPCS: 81001; 87086; 87088; 87186; 99283; J8540

== ENCOUNTER 2024-06-27 09:59 | Outpatient (CLI) | payer MEDICARE, SELFPAY | END 2024-06-27 23:59 | disposition home or self-care (01) | LOC: LAB.DROPOF 06-28 14:27 | PROVIDERS: PCP Nurse Practitioner Family; Visit Provider Nurse Practitioner Family | DX: N39.0 Urinary tract infection, site not specified (principal) | CPT/HCPCS: 87086 ==

== ENCOUNTER 2024-07-23 10:04 | Outpatient (CLI) | payer MEDICARE, SELFPAY | END 2024-07-23 23:59 | disposition home or self-care (01) | LOC: LAB.DROPOF 07-24 13:13 | PROVIDERS: PCP Nurse Practitioner Family; Visit Provider Nurse Practitioner Family | DX: N39.0 Urinary tract infection, site not specified (principal) | CPT/HCPCS: 87086 ==

== ENCOUNTER 2024-08-31 07:53 | Outpatient (CLI) | payer MEDICARE, SELFPAY ==
--- OUTSIDE RECORDS SUMMARY | 2024-08-31 07:55 | XMS_ITS | Data Portability ---
Author Organization [place] [facility] [place] [facility] [place] [facility] Address [address] [place] [id number] Assessment Encounter Date Assessment Date Assessment LastModified by Organization Details LastModified Time 02/29/2024 02/29/2024 MS. Mcneal is 83 year old here for: 1)History of Pancreatitis - unknown etiology - EUS showed signs of chronic pancreatitis - Avoid Alcohol and NSAIDs - If reoccurance may need to discussing stopping spirolactone and /or fenofibrate 2)Abdominal Pain - Does feel she is not complete emptying and has to strain - start Trulance for constipation and evaluate in 2 months if symptoms have improved - If Trulance causes diarrhea can try Fiber and mirlax daily - amitriptyline vs. celiac plexus block for pain may be a consideration 3)Early Satiety 4)Nausea - EGD unremarkable - Avoid fatty, acidic and spicy foods - Educated on consuming high protein meals, low carb meals - Consume small solid meals - Consume liquid meals such as protein shakes as needed or in between solid meals - improve constipation as above - If continues can trial CREON 5) Hepatic Steatosis - Liver work up at follow up Not available 03/07/2024 15:13:35 06/06/2024 06/06/2024 MS. Mcneal is 83 year old here for: 1)History of Pancreatitis - unknown etiology - EUS showed some stranding but was not able to see whole pancreas due to hx of gastric bypass - Will order CT scan without contrast (due to decreased kidney function) to examine full pancreas for signs of pancreatitis as well as other causes of abdominal pain - Avoid Alcohol and NSAIDs - If reoccurance may need to discussing stopping spirolactone and /or fenofibrate 2)Abdominal Pain 3)Early Satiety 4)Nausea 5)Bloating - Reports BM are daily without staining and she is only using Trulance as needed - Pain is located RUQ or LUQ . Seems to be worse if bending over - EGD unremarkable - Trial CREON for EPI - Avoid fatty, acidic and spicy foods - Educated on consuming high protein meals, low carb meals - Consume small solid meals - Consume liquid meals such as protein shakes as needed or in between solid meals 6) Hepatic Steatosis - Will evaluate with CT - Reports recent labs w/PCP-will try to obtain - Educated on daily exercise, weight loss and decreasing cholesterol is recommended Not available 06/06/2024 20:12:23 07/16/2024 07/16/2024 MS. Mcneal is 83 year old here for: 1)History of Pancreatitis - unknown etiology - 06/2024 :CT scan w/wo showed resolved pancreatitis otherwise unremarkable - Avoid Alcohol and NSAIDs - If reoccurance may need to discussing stopping spirolactone and /or fenofibrate 2)Abdominal Pain 3)Early Satiety 4)Nausea 5)Bloating - using Trulance as needed - Pain is located RUQ or LUQ . Seems to be worse if bending over - EGD unremarkable - She felt CREON helped some with bloating and digestion. I recommended increasing to 3 pills for meals and 2 for snacks to see if she felt it helped with lingering symptoms - Avoid fatty, acidic and spicy foods - Educated on consuming high protein meals, low carb meals - Consume small solid meals - Consume liquid meals such as protein shakes as needed or in between solid meals 6) Hepatic Steatosis - Ct of liver was homogeneous - AST/ALT WNL 01/2024 7)Celiac artery and SMA Stenosis - Abdominal pain persists after resolution of constipation - CT scan unremarkable - Saw [facility] surgery 2021 for 99% Celiac artery stenosis and 60% SMA stenosis - c/o early satiety, abdominal pain, bloating, nausea correlate - recommend evaluation by vascular surgery Not available 07/16/2024 23:50:21 Plan of Treatment Reminders Order Date Submit Date Provider Last Modified By Organization Details Last Modified Time Details Appointments Establish ed Visit 15 min 2024 02:00P M TERE LANGE NP Not available Not available Not available Lab urinalysi s, dipstick 2024 025 [email or web address] [facility], [address], [place], [address], 07/02/2024 14:59:26 urinalysi s, dipstick 2023 024 [email or web address] [facility], [address], [place], [address], 02/14/2024 14:20:52 Referral vascular surgeon referral 2024 025 [place] [id number] Matthew Ruiz MD, [address], [place], [address], 08/14/2024 08:59:27 Procedures None recorded. Surgeries None recorded. Imaging CT, abdomen, w/ contrast - Patient having RUQ abdominal pain and history of pancreati tis [address], [place], [address], 06/22/2024 14:41:13 Medication Orders Creon 36,000 unit-114, 000 unit-180, 000 unit capsule,d elayed release 2024 025 [id number], [address], [id number], 06/06/2024 20:25:38 Trulance 3 mg tablet 2023 024 [id number], [address] [facility] [address] [place], [place], [id number], 03/07/2024 14:00:35 methenami ne hippurate 1 gram tablet 2023 024 [facility], [address] [place], [address], 02/14/2024 14:21:44 Patient TargetsNo targets recorded. Patient InstructionsNo instructions recorded. Reason for Referral Vascular Surgeon Referral fo r Stenosis of celiac artery Referring Physician: Tere Lange, Gastroenterology, Encounter Date: 07/16/2024 Results Created Date Observation Date Name Description Value Unit Range Abnormal Flag Note LastModifiedBy Organization Detail LastModifiedTime 01/17/20 24 01/18/2024 CBC WITH DIFFE RENTI AL/PL ATELE T WBC 9.6 x10e3 /uL 3.4-10 .8 normal Not Available [facility] ([facility]) [address] [place], [address], 01/18/2024 11:15:56 01/17/20 24 01/18/2024 CBC WITH DIFFE RENTI AL/PL ATELE T RBC 3.18 x10e6 /uL 3.77-5 .28 below low normal Not Available [facility] ([facility]) [address] [place], [address], 01/18/2024 11:15:56 01/17/20 24 01/18/2024 CBC WITH DIFFE RENTI AL/PL ATELE T hemoglobin 8.8 g/dL 11.1-1 5.9 below low normal Not Available [facility] ([facility]) [address] [place], [address], 01/18/2024 11:15:56 01/17/20 24 01/18/2024 CBC WITH DIFFE RENTI AL/PL ATELE T hematocrit 28.7 % 34.0-4 6.6 below low normal Not Available [facility] ([facility]) [address] [place], [address], 01/18/2024 11:15:56 01/17/20 24 01/18/2024 CBC WITH DIFFE RENTI AL/PL ATELE T MCV 90 fL 79-97 normal Not Available [facility] ([facility]) [address] [place], [address], 01/18/2024 11:15:56 01/17/20 24 01/18/2024 CBC WITH DIFFE RENTI AL/PL ATELE T MCH 27.7 pg 26.6-3 3.0 normal Not Available [facility] ([facility]) [address] [facility], [place], [address], 01/18/2024 11:15:56 01/17/20 24 01/18/2024 CBC WITH DIFFE RENTI AL/PL ATELE T MCHC 30.7 g/dL 31.5-3 5.7 below low normal Not Available [facility] ([facility]) [address] [facility], [place], [address], 01/18/2024 11:15:56 01/17/20 24 01/18/2024 CBC WITH DIFFE RENTI AL/PL ATELE T RDW 13.8 % 11.7-1 5.4 Not Available [facility] ([facility]) [address] [facility], [place], [address], 01/18/2024 11:15:56 01/17/20 24 01/18/2024 CBC WITH DIFFE RENTI AL/PL ATELE T platelets 311 x10e3 /uL 150-45 0 normal Not Available [facility] ([facility]) [address] [facility], [place], [address], 01/18/2024 11:15:56 01/17/20 24 01/18/2024 CBC WITH DIFFE RENTI AL/PL ATELE T neutrophils 56 % not estab. normal Not Available [facility] ([facility]) [address] [facility], [place], [address], 01/18/2024 11:15:56 01/17/20 24 01/18/2024 CBC WITH DIFFE RENTI AL/PL ATELE T lymphs 33 % not estab. normal Not Available [facility] ([facility]) [address] [facility], [place], [address], 01/18/2024 11:15:56 01/17/20 24 01/18/2024 CBC WITH DIFFE RENTI AL/PL ATELE T monocytes 7 % not estab. normal Not Available [facility] ([facility]) [address] [facility], [place], [address], 01/18/2024 11:15:56 01/17/20 24 01/18/2024 CBC WITH DIFFE RENTI AL/PL ATELE T eos 2 % not estab. normal Not Available [facility] ([facility]) [address] [facility], [place], [address], 01/18/2024 11:15:56 01/17/20 24 01/18/2024 CBC WITH DIFFE RENTI AL/PL ATELE T basos 1 % not estab. normal Not Available [facility] ([facility]) [address] [facility], [place], [address], 01/18/2024 11:15:56 01/17/20 24 01/18/2024 CBC WITH DIFFE RENTI AL/PL ATELE T immature cells WORKERS COMPENSATION ADJUSTER Not Available [facility] ([facility]) [address] [place], [address], 01/18/2024 11:15:56 01/17/20 24 01/18/2024 CBC WITH DIFFE RENTI AL/PL ATELE T neutrophils (absolute) 5.5 x10e3 /uL 1.4-7. 0 normal Not Available [facility] ([facility]) [address] [place], [address], 01/18/2024 11:15:56 01/17/20 24 01/18/2024 CBC WITH DIFFE RENTI AL/PL ATELE T lymphs (absolute) 3.2 x10e3 /uL 0.7-3. 1 above high normal Not Available [facility] ([facility]) [address] [place], [address], 01/18/2024 11:15:56 01/17/20 24 01/18/2024 CBC WITH DIFFE RENTI AL/PL ATELE T monocytes(ab solute) 0.7 x10e3 /uL 0.1-0. 9 normal Not Available [facility] ([facility]) [address] [facility], [place], [address], 01/18/2024 11:15:56 01/17/20 24 01/18/2024 CBC WITH DIFFE RENTI AL/PL ATELE T eos (absolute) 0.2 x10e3 /uL 0.0-0. 4 normal Not Available [facility] ([facility]) [address] [facility], [place], [address], 01/18/2024 11:15:56 01/17/20 24 01/18/2024 CBC WITH DIFFE RENTI AL/PL ATELE T baso (absolute) 0.1 x10e3 /uL 0.0-0. 2 normal Not Available [facility] ([facility]) [address] [facility], [place], [address], 01/18/2024 11:15:56 01/17/20 24 01/18/2024 CBC WITH DIFFE RENTI AL/PL ATELE T immature granulocytes 1 % not estab. Not Available [facility] ([facility]) [address] [facility], [place], [address], 01/18/2024 11:15:56 01/17/20 24 01/18/2024 CBC WITH DIFFE RENTI AL/PL ATELE T immature grans (abs) 0.1 x10e3 /uL 0.0-0. 1 Not Available [facility] ([facility]) [address] [facility], [place], [address], 01/18/2024 11:15:56 01/17/20 24 01/18/2024 CBC WITH DIFFE RENTI AL/PL ATELE T NRBC WORKERS COMPENSATION ADJUSTER Not Available [facility] ([facility]) [address] [facility], [place], [address], 01/18/2024 11:15:56 01/17/20 24 01/18/2024 CBC WITH DIFFE RENTI AL/PL ATELE T hematology comments: WORKERS COMPENSATION ADJUSTER Not Available [facility] ([facility]) [address] [facility] [place], [address], 01/18/2024 11:15:56 01/17/20 24 01/18/2024 COMP. METAB OLIC PANEL (14) glucose 88 mg/dL 70-99 normal Not Available [facility] ([facility]) [address] [facility] [place], [address], 01/18/2024 11:15:56 01/17/20 24 01/18/2024 COMP. METAB OLIC PANEL (14) BUN 32 mg/dL 8-27 above high normal Not Available [facility] ([facility]) [address] [facility] [place], [address], 01/18/2024 11:15:56 01/17/20 24 01/18/2024 COMP. METAB OLIC PANEL (14) creatinine 1.92 mg/dL 0.57-1 .00 above high normal Not Available [facility] ([facility]) [address] [place], [address], 01/18/2024 11:15:56 01/17/20 24 01/18/2024 COMP. METAB OLIC PANEL (14) eGFR 26 mL/mi n/1.7 3 >59 below low normal Not Available [facility] ([facility]) [address] [place], [address], 01/18/2024 11:15:56 01/17/20 24 01/18/2024 COMP. METAB OLIC PANEL (14) BUN/creatini ne ratio 17 12-28 normal Not Available [facility] ([facility]) [address] [place], [address], 01/18/2024 11:15:56 01/17/20 24 01/18/2024 COMP. METAB OLIC PANEL (14) sodium 133 mmol/ L 134-14 4 below low normal Not Available [facility] ([facility]) [address] [place], [address], 01/18/2024 11:15:56 01/17/20 24 01/18/2024 COMP. METAB OLIC PANEL (14) potassium 5.4 mmol/ L 3.5-5. 2 above high normal Not Available [facility] ([facility]) [address] [place], [address], 01/18/2024 11:15:56 01/17/20 24 01/18/2024 COMP. METAB OLIC PANEL (14) chloride 100 mmol/ L 96-106 normal Not Available [facility] ([facility]) [address] [place], [address], 01/18/2024 11:15:56 01/17/20 24 01/18/2024 COMP. METAB OLIC PANEL (14) carbon dioxide, total 16 mmol/ L 20-29 below low normal Not Available [facility] ([facility]) [address] [place], [address], 01/18/2024 11:15:56 01/17/20 24 01/18/2024 COMP. METAB OLIC PANEL (14) calcium 9.3 mg/dL 8.7-10 .3 normal Not Available [facility] ([facility]) [address] [place], [address], 01/18/2024 11:15:56 01/17/20 24 01/18/2024 COMP. METAB OLIC PANEL (14) protein, total 6.2 g/dL 6.0-8. 5 normal Not Available [facility] ([facility]) [address] [place], [address], 01/18/2024 11:15:56 01/17/20 24 01/18/2024 COMP. METAB OLIC PANEL (14) albumin 4.0 g/dL 3.7-4. 7 normal Not Available [facility] ([facility]) [address] [place], [address], 01/18/2024 11:15:56 01/17/20 24 01/18/2024 COMP. METAB OLIC PANEL (14) globulin, total 2.2 g/dL 1.5-4. 5 Not Available [facility] ([facility]) [address] [facility] [place], [address], 01/18/2024 11:15:56 01/17/20 24 01/18/2024 COMP. METAB OLIC PANEL (14) bilirubin, total <0.2 mg/dL 0.0-1. 2 Not Available [facility] ([facility]) [address] [facility] [place], [address], 01/18/2024 11:15:56 01/17/20 24 01/18/2024 COMP. METAB OLIC PANEL (14) alkaline phosphatase 53 IU/L 44-121 normal Not Available [facility]) [address] [facility] [place], [address], 01/18/2024 11:15:56 01/17/20 24 01/18/2024 COMP. METAB OLIC PANEL (14) AST (SGOT) 24 IU/L 0-40 normal Not Available [facility] ([facility]) [address] [facility] [place], [address], 01/18/2024 11:15:56 01/17/20 24 01/18/2024 COMP. METAB OLIC PANEL (14) ALT (SGPT) 13 IU/L 0-32 normal Not Available [facility] ([facility]) [address] [facility], [place], [address], 01/18/2024 11:15:56 01/17/20 24 01/18/2024 LIPAS E lipase 38 U/L 14-85 normal Not Available [facility] ([facility]) [address] [facility], [place], [address], 01/18/2024 11:15:57 01/17/20 24 01/17/2024 PLEAS E NOTE please note Commen t The date and/o r time of colle ction was not indic ated on the requi sitio n as requi red by state and carlos alberto al law. The date of recei pt of the speci men was used as the colle ction date if not suppl ied. Not Available [facility] ([facility]) [address] [facility], [place], [address], 01/18/2024 11:15:58 02/14/2002/14/2024 urina lysis , dipst ick Leukocytes (reference range) negati ve Not Available [place] [address] [address] [facility] [address], [place], [address], 02/14/2024 14:14:26 02/14/2002/14/2024 urina lysis , dipst ick Nitrite (reference range:) negati ve Not Available [place] [address] [address] [facility] [address], [place], [address], 02/14/2024 14:14:26 02/14/2002/14/2024 urina lysis , dipst ick Urobilinogen (reference range) 0.2 Not Available [facility] [place] [address] [address] [facility] [address], [place], [address], 02/14/2024 14:14:26 02/14/2002/14/2024 urina lysis , dipst ick Protein (reference range) negati ve Not Available [place] [address] [address] [facility] [address], [place], [address], 02/14/2024 14:14:26 02/14/2002/14/2024 urina lysis , dipst ick pH (reference range 5-8.5) 6.0 Not Available Cecilia [place] [address] [address] [facility] [address], [place], [address], 02/14/2024 14:14:26 02/14/2002/14/2024 urina lysis , dipst ick Blood (reference range:) negati ve Not Available [place] [address] [address] [facility] [address], [place], [address], 02/14/2024 14:14:26 02/14/2002/14/2024 urina lysis , dipst ick Specific [place] (reference range) 1.015 Not Available [place] [address] [address] [facility] [address], [place], [address], 02/14/2024 14:14:26 02/14/2002/14/2024 urina lysis , dipst ick Ketone (reference range) negati ve Not Available [place] [address] [address] [facility] [address], [place], [address], 02/14/2024 14:14:26 02/14/2002/14/2024 urina lysis , dipst ick Bilirubin (reference range) negati ve Not Available [place] [address] [address] [facility] [address], [place], [address], 02/14/2024 14:14:26 02/14/2002/14/2024 urina lysis , dipst ick Glucose (reference range) negati ve Not Available [place] [address] [address] [facility] [address], [place], [address], 02/14/2024 14:14:26 02/14/2002/14/2024 urina lysis , dipst ick Color (reference range: yellow-brown ) Yellow Not Available [place] [address] [address] [facility] [address], [place], [address], 02/14/2024 14:14:26 07/03/19 25 07/02/2024 urina lysis , dipst ick Leukocytes (reference range) negati ve Not Available [place] [address], [place], [address], 07/02/2024 14:59:00 07/03/19 25 07/02/2024 urina lysis , dipst ick Nitrite (reference range:) negati ve Not Available [facility] [place] [address] [address] [facility] [address], [place], [address], 07/02/2024 14:59:00 07/03/19 25 07/02/2024 urina lysis , dipst ick Urobilinogen (reference range) 0.2 Not Available [facility] [place] [address] [address] [facility] [address], [place], [address], 07/02/2024 14:59:00 07/03/19 25 07/02/2024 urina lysis , dipst ick Protein (reference range) negati ve Not Available [facility] [place] [address] [address] [facility] [address], [place], [address], 07/02/2024 14:59:00 07/03/19 25 07/02/2024 urina lysis , dipst ick pH (reference range 5-8.5) 6.0 Not Available [place] [address] [address] [facility] [address], [place], [address], 07/02/2024 14:59:00 07/03/19 25 07/02/2024 urina lysis , dipst ick Blood (reference range:) negati ve Not Available [facility] [place] [address] [address] [facility] [place] [address], [place], [address], 07/02/2024 14:59:00 07/03/19 25 07/02/2024 urina lysis , dipst ick Specific [place] (reference range) 1.015 Not Available [facility] [place] [address] [address] [facility] [address], [place], [address], 07/02/2024 14:59:00 07/03/19 25 07/02/2024 urina lysis , dipst ick Ketone (reference range) negati ve Not Available [place] [address], [place], [address], 07/02/2024 14:59:00 07/03/19 25 07/02/2024 urina lysis , dipst ick Bilirubin (reference range) negati ve Not Available [place] [address], [place], [address], 07/02/2024 14:59:00 07/03/19 25 07/02/2024 urina lysis , dipst ick Glucose (reference range) negati ve Not Available [place] [address] [address] [facility] [place] [facility] [address], [place], [address], 07/02/2024 14:59:00 07/03/19 25 07/02/2024 urina lysis , dipst ick Color (reference range: yellow-brown ) Yellow Not Available [place] [address] [address] [facility] [address], [place], [address], 07/02/2024 14:59:00 06/22/19 25 06/22/2024 CT, abdom en, w/wo contr ast No observ ation record ed. [facility] [address], [place], [address], 06/26/2024 13:49:05 Result Notes None recorded. Problems Name Problem SNOMED Code Status Onset Date Resolution Date Notes Provider Name and Address Organization Details Recorded Time Asthma 288287700 Active 2022 FANY Hallman - [place] [facility] [place] 3 09:36:31 Heart disease 30249819 Active 2022 FANY Hallman - [place] [facility] [place] 3 09:36:39 Acid reflux 371880506 Active 2022 Richard fisher, [place] - [facility] - [place] [facility] [place] 3 09:36:49 Irritable bowel syndrome 02171091 Active 2022 Richard fisher, [place] - [facility] [place] [facility] [place] 3 09:37:01 Diverticulitis 103064583 Active 2022 Richard fisher, [place] - [facility] - [place] [facility] [place] 3 09:37:10 Chronic interstitial cystitis 719194312 Active 2022 Richard fisher, [place] - [facility] [place] [facility] [place] 3 09:37:17 Renal failure syndrome 21749410 Active 2022 Richard fisher, [place] - [facility] [place] [facility] [place] 3 09:37:29 Chronic urinary tract infection 768929049 Active 2022 Richard fisher, [place] - [facility] - [place] [facility] [place] 3 09:37:38 Problem Notes None recorded. Procedures Surgical History Date Name Laterality Status Provider Name and Address Organization Details Recorded Time 01/17/20 24 Procedure Note completed Fernanda Candelariaespareli SOAR[place] - [facility] [place] [facility] [place] 01/17/2024 13:13:55 interposition operation for uterine suspension completed Richard SOARES - [facility] [place] [facility] [place] 08/11/2022 09:38:56 Total Hysterectomy completed Calebaminah Thompson [place] - [facility] - [place] [facility] [place] 08/11/2022 09:39:03 biopsy of breast completed Richard SOARES - [facility] [place] [facility] [place] 08/11/2022 09:41:12 biopsy of urinary bladder completed Richard Thompson [place] - [facility] [place] [facility] [place] 08/11/2022 09:41:26 cardiac catheterization completed Richard SOARES - [facility] - [place] [facility] [place] 08/11/2022 09:41:51 cholecystectomy completed Calebbutch SOARES - [facility] - [place] [facility] [place] 08/11/2022 09:42:02 Gastric bypass for obesity completed Richard RYAN [facility] [place] 08/11/2022 09:42:14 Cataract Surgery completed Richard RYAN [facility] [place] 08/11/2022 09:42:21 excision of basal cell carcinoma completed Richard RYAN [facility] [place] 08/11/2022 09:43:18 procedure on back completed Richard RYAN [facility] [place] 08/11/2022 09:43:35 Imaging Results Imaging Date Name Status LastModified by Organiz ation Details LastModified Time 06/22/2024 CT, abdomen, w/wo contrast completed [facility] [address], [place], [address], 06/26/2024 13:49:05 Procedure Notes None recorded. Medical Equipment None Reported. Allergies Allergen ID Allergen Name Allergen Category Reaction Reaction Severity Criticality Documentation Date Start Date Code Code System Note Provider Name and Address Organization Details Recorded Time 12857 Tylenol with Codeine medicatio n Not available Not available Not available 08/11/2022 17328 6 RxNorm FANY Hallman [facility] [place] 3 09:30:52 50338 Product containin g penicilli n (product) medicatio n Not available Not available Not available 08/11/2022 65075 8001 SNOMED FANY Hallman [facility] [place] 3 09:31:07 88340 Substance with sulfonami de structure and antibacte rial mechanism of action (substanc e) medicatio n Not available Not available Not available 08/11/2022 51258 8003 SNOMED FANY Hallman [facility] [place] 3 09:31:16 19646 atenolol medicatio n Not available Not available Not available 08/11/2022 1202 RxNorm FANY Hallman [facility] [place] 3 09:31:22 22427 cortisone medicatio n Not available Not available Not available 08/11/2022 2878 RxNorm FANY Hallman [place] [facility] [place] 3 09:31:30 36285 Cipro medicatio n Not available Not available Not available 08/11/2022 36604 3 RxNorm FANY Hallman [place] [facility] [place] 3 09:31:35 33432 Claritin- D medicatio n Not available Not available Not available 08/11/2022 78383 UNK FANY Hallman [place] & [place] 3 09:31:43 18143 acetamino phen / hydrocodo ne medicatio n Not available Not available Not available 08/11/2022 95451 2 RxNorm FANY Hallman [place] [facility] [place] 3 09:31:49 18185 erythromy mahsa medicatio n Not available Not available Not available 08/11/2022 4053 RxNorm FANY Hallman [facility] & [place] 3 09:31:59 42272 latex environme nt,medica tion Not available Not available Not available 08/11/2022 41605 91 RxNorm FANY Hallman [place] [facility] [place] 3 09:32:07 Medications Name Sig Start Date Stop Date Status Note LastModified by Organization Details LastModified Time tetracycli ne 500 mg capsule TAKE 1 CAPSULE BY MOUTH EVERY 12 HOURS FOR 7 DAYS 12/14 completed Not Available Not Available Not Available losartan 50 mg tablet active Not Available Not Available Not Available atorvastat in 40 mg tablet active Not Available Not Available Not Available ipratropiu m 0.5 mg-albuter ol 3 mg (2.5 mg base)/3 mL nebulizati on soln active Not Available Not Available Not Available trazodone 50 mg tablet Take 1 tablet every day by oral route at bedtime. active Not Available Not Available No t Available oxybutynin chloride ER 10 mg tablet,ext ended release 24 hr TAKE 1 TABLET BY MOUTH DAILY 12/14 completed Not Available Not Available Not Available pravastati n 40 mg tablet 12/14 completed Not Available Not Available Not Available fluconazol e 150 mg tablet TAKE 1 TABLET BY MOUTH EVERY 3 DAYS FOR 2 DOSES 12/14 completed Not Available Not Available Not Available meloxicam 15 mg tablet TAKE 1 TABLET BY MOUTH EVERY DAY 12/14 completed Not Available Not Available Not Available prednisone 5 mg tablet TAKE 1 TABLET BY MOUTH ONCE DAILY WITH FOOD 12/14 completed Not Available Not Available Not Available clopidogre l 75 mg tablet 01/15 completed Not Available Not Available Not Available fenofibrat e micronized 67 mg capsule active Not Available Not Available Not Available trimethopr im 100 mg tablet TAKE 1 TABLET BY MOUTH DAILY 12/14 completed Not Available Not Available Not Available tramadol 50 mg tablet TAKE 1 TABLET BY MOUTH THREE TIMES DAILY NEEDED FOR PAIN 01/15 completed not taking Not Available Not Available Not Available triamcinol one acetonide 0.1 % topical cream APPLY TOPICALL Y TO THE AFFECTED AREA TWICE DAILY 12/14 completed Not Available Not Available Not Available spironolac tone 25 mg tablet active Not Available Not Available Not Available verapamil 120 mg tablet 12/14 completed Not Available Not Available Not Available oxycodone- acetaminop hen 5 mg-325 mg tablet TAKE 1 TABLET BY MOUTH EVERY 4 HOURS NEEDED FOR PAIN 12/14 completed Not Available Not Available Not Available hydrocorti sone 2.5 % topical cream with perineal applicator APPLY TOPICALL Y TO THE AFFECTED AREA THREE TIMES DAILY FOR 10 DAYS 12/14 completed Not Available Not Available Not Available methenamin e hippurate 1 gram tablet TAKE 1 TABLET TWICE A DAY 2024 active Not Available Not Available Not Avai lable ascorbic acid (vitamin C) 500 mg tablet Take 1 tablet 3 times a day by oral route. 12/14 completed Not Available Not Available Not Available dexamethas one 2 mg tablet TAKE 3 TABLET BY MOUTH ONCE DAILY WITH FOOD/HARISH L active Not Available Not Available No t Available cephalexin 500 mg capsule TAKE 1 CAPSULE BY MOUTH TWICE DAILY FOR 10 DAYS 12/14 completed Not Available Not Available Not Available pantoprazo le 40 mg tablet,del ayed release TAKE 1 TABLET BY MOUTH EVERY MORNING FOR STOMACH active Not Available Not Available No t Available ursodiol 300 mg capsule active Not Available Not Available Not Available Synthroid 75 mcg tablet active Not Available Not Available Not Available lisinopril 30 mg tablet 12/14 completed Not Available Not Available Not Available gabapentin 300 mg capsule TAKE 1 CAPSULE BY MOUTH THREE TIMES DAILY 12/14 completed Not Available Not Available Not Available hydrochlor othiazide 25 mg tablet TAKE 1 TABLET BY MOUTH EVERY DAY IN THE MORNING 12/14 completed Not Available Not Available Not Available furosemide 20 mg tablet 12/14 completed Not Available Not Available Not Available metoprolol succinate ER 25 mg tablet,ext ended release 24 hr 12/14 completed Not Available Not Available Not Available azelastine 137 mcg (0.1 %) nasal spray USE 2 SPRAYS IN EACH NOSTRIL EVERY NIGHT AT BEDTIME active Not Available Not Available No t Available estradiol 0.01% (0.1 mg/gram) vaginal cream active Not Available Not Available Not Available levofloxac in 750 mg tablet TAKE 1 TABLET BY MOUTH DAILY FOR 5 DAYS 12/14 completed Not Available Not Available Not Available albuterol sulfate HFA 90 mcg/actuat ion aerosol inhaler active Not Available Not Available Not Available ondansetro n 4 mg disintegra ting tablet DISSOLVE 1 TABLET ON THE TONGUE EVERY 8 HOURS NEEDED FOR NAUSEA OR VOMITING 12/14 completed Not Available Not Available Not Available cefdinir 300 mg capsule TAKE 1 CAPSULE BY MOUTH TWICE DAILY FOR 7 DAYS 12/14 completed Not Available Not Available Not Available Premarin 0.625 mg/gram vaginal cream USING FINGER TECHNIQU E APPLY 0.625MG VAGINALL Y DAILY FOR 2 WEEKS AND THEN 3 TIMES WEEKLY THEREAFT ER 12/14 completed Not Available Not Available Not Available [place] Saline 0.65 % nasal spray aerosol ADMINIST ER 1 SPRAY INTRANAS ALLY THREE TIMES DAILY 01/15 completed Not Available Not Available Not Available nitrofuran toin monohydrat e/macrocry stals 100 mg capsule TAKE 1 CAPSULE BY MOUTH TWICE DAILY WITH FOOD/HARISH L FOR 5 DAYS 07/16 completed Not Available Not Available Not Available magnesium 380 mg daily active Not Available Not Available No t Available Vitamin C 1,000 mg daily active Not Available Not Available No t Available aspirin 81 mg daily active Not Available Not Available No t Available ketamine 5% cream PRN active Not Available Not Available No t Available iron 12/14 completed Not Available Not Available Not Available Vitamin D3 1,000 IU daily active Not Available Not Available No t Available gabapentin 10% cream active Not Available Not Available No t Available Vitamin B12 1000 mcg daily active Not Available Not Available No t Available fenofibrat e nanocrysta llized 145 mg tablet 08/11 completed Not Available Not Available Not Available budesonide -formotero l HFA 160 mcg-4.5 mcg/actuat ion aerosol inhaler INHALE 2 PUFFS BY MOUTH TWICE DAILY 12/14 completed Not Available Not Available Not Available Dulera 100 mcg-5 mcg/actuat ion HFA aerosol inhaler active Not Available Not Available Not Available Creon 36,000 unit-114,0 00 unit-180,0 00 unit capsule,de layed release Take 2 tablets before every meals and 1 tablet before snacks active Not Available Not Available No t Available Trulance 3 mg tablet TAKE 1 TABLET BY MOUTH ONCE DAILY BEFORE A MEAL FOR CONSTIPA TION active Not Available Not Available No t Available BinaxNOW COVID-19 Ag Self Test kit TEST DIRECTED TODAY 12/14 completed Not Available Not Available Not Available Clenpiq 10 mg-3.5 gram-12 gram/175 mL oral solution 12/14 completed Not Available Not Available Not Available Vitals Date Recorded Body height Body mass index (BMI) Body weight Body temperature Oxygen saturation Oxygen saturation in Arterial blood by Pulse oximetry Heart rate Systolic blood pressure Diastolic blood pressure Provider Name and Address Organization Details Last Updated DateTime 4 157.48 cm 35.7 kg/m2 76240.5 1 g 98.7 [degF] 100 % 100 % 68 /min 136 mm[Hg] 72 mm[Hg] Shante Case [facility] 4 14:13:05 Date Recorded Body height Body mass index (BMI) Body weight Body temperature Oxygen saturation Oxygen saturation in Arterial blood by Pulse oximetry Heart rate Heart rate Systolic blood pressure Diastolic blood pressure Provider Name and Address Organization Details Last Updated DateTime 4 157.48 cm 35.9 kg/m2 73124.4 6 g 97.9 [degF] 98 % 98 % 81 /min 80 /min 175 mm[Hg] 76 mm[Hg] Jayna Ramirez [facility] & [place] 4 09:55:25 Date Recorded Body height Body mass index (BMI) Body weight Body temperature Oxygen saturation Oxygen saturation in Arterial blood by Pulse oximetry Heart rate Systolic blood pressure Diastolic blood pressure Provider Name and Address Organization Details Last Updated DateTime 5 157.48 cm 35.8 kg/m2 09593.1 g 97.2 [degF] 98 % 98 % 95 /min 148 mm[Hg] 66 mm[Hg] Claribel guzman [place] - [facility] [place] 5 13:41:56 Date Recorded Body height Body temperature Oxygen saturation Oxygen saturation in Arterial blood by Pulse oximetry Heart rate Systolic blood pressure Diastolic blood pressure Provider Name and Address Organization Details Last Updated DateTime 5 157.48 cm 97 [degF] 100 % 100 % 70 /min 130 mm[Hg] 70 mm[Hg] Shante Case [place] [facility] [place] 5 14:12:48 Date Recorded Body height Body mass index (BMI) Body weight Body temperature Oxygen saturation Oxygen saturation in Arterial blood by Pulse oximetry Heart rate Systolic blood pressure Diastolic blood pressure Provider Name and Address Organization Details Last Updated DateTime 5 157.48 cm 35.8 kg/m2 35330.1 g 97.7 [degF] 95 % 95 % 87 /min 147 mm[Hg] 62 mm[Hg] Claribel guzman [place] - [facility] [place] 5 14:07:42 Social History Question Answer Notes LastModified by Organizat ion Details LastModified Time Tobacco Smoking Status Former Smoker [facility]alebbutch Thompson [place] [place] 08/11/2022 09:38:39 What Is Your Level Of Alcohol Consumption? None [email or web address] Information not available 08/11/2022 Sex: Unknown Functional Status None recorded. Mental Status None recorded. Family History Relationship Description Onset Age of this Age Resolved Age Notes LastModified by Organization Details LastModified Time Brother Heart disease dec [email or web address] Not available 2022 09:38:11 Father Heart disease dec [email or web address] Not available 2022 09:38:11 Mother Heart disease dec [email or web address] Not available 2022 09:38:11 Sister Fall dec [email or web address] Not available 08/11/2022 09:38:23 Medical History No medical history recorded. Gynecological HistoryNo gynecological history recorded. Obstetrics History GPAL:G 0 P 0 0 0 0 Past Encounters Encounter ID Performer Location Encounter Start Date Encounter Closed Date Diagnosis/Indication Diagnosis SNOMED-CT Code Diagnosis ICD10 Code Diagnosis Note [id number] Wicho Erickson Jr, MD [facility] Urology [address] [address] 08/11/2022 09:10:54 08/11/2022 10:26:28 Urinary tract infectious disease 86056647 N39.0 Patient with history of recurrent urinary tract infections . We discussed possible risk factors and she has not taken much fluids during the day. We discussed preventive therapy and increasing her fluid status. Prescripti ons for ascorbic acid and methenamin e prescribed . She is to increase her fluid intake to at least 60 oz per day. She will return if her symptoms recur. [id number] Li Ramirez NP, S [facility] Urology-1 [address] [facility] [address] [place] [address] 12/15/2023 09:43:05 12/15/2023 10:45:37 Recurrent urinary tract infection 706749249 N39.0 UA clearPVR 40ccDiscus sed active bowel habits, probiotics , take Vitamin C, hygeine, voiding prior to and post sex (wash), and wipe front to back. Schedule Renal US and KUBStart Methenamin e 1 gram bid RTC in 8 weeks for f/u Nocturia 204119987 R35.1 Urge incon tinence of urine 75864899 N39.41 [id number] CLARIBEL ALEXANDER NP [facility] [address] [facility] [address] [place] [address] 01/16/2024 09:25:10 01/16/2024 10:42:16 History of pancreatitis [id number] 9107 Z87.19 Check labs today. She has not had follow up imaging after diagnosis of pancreatit is in August 2023. Follow up with EUS. Early satiety 635909337 R68.81 EGD recommende d for new onset nausea, early satiety. Nausea 786665282 R11.0 Abdominal pain 51982343 R10.9 Left upper quadrant, see HPI for details.ED precaution s. [id number] CLARIBEL ALEXANDER NP [facility] [address] [place] [address] 01/17/2024 11:26:13 01/17/2024 12:10:30 History of pancreatitis 2063564981 9107 Z87.19 Check labs today. She has not had follow up imaging after diagnosis of pancreatit is in August 2023. Follow up with EUS. [id number] Li Ramirez NP, [facility] Urology-1 [address] [facility] [address] [place] [address] 02/14/2024 13:19:03 02/14/2024 14:17:18 Chronic urinary tract infection 021905285 N39.0 UA negativeCo ntinue Methenamin e 1 gram bidRenal US results discussed with pt in clinic todayRTC in 6 months for f/u [id number] TERE LANGE NP [facility] [address] [address] 02/29/2024 09:46:51 02/29/2024 11:02:44 History of pancreatitis 6792058624 9107 Z87.19 Early satiety 129219271 R68.81 Nausea 920560153 R11.0 Abdominal pain 06772224 R10.9 Chronic id iopathic constipation 57435255 K59.04 Steatotic liver disease 619498941 K76.0 [id number] TERE LANGE NP [facility] [address] [place] [address] 06/06/2024 13:30:15 06/06/2024 14:30:50 History of pancreatitis 2786296748 9107 Z87.19 Early satiety 495153120 R68.81 Nausea 195252801 R11.0 Abdominal pain 26333141 R10.9 Chronic id iopathic constipation 59651721 K59.04 - She denies any issues with constipati on and has not been taking Trulance Steatotic liver disease 467910691 K76.0 - CT ordered Exocrine p ancreatic insufficiency 88786093 K86.81 [id number] Li Ramirez NP, [facility] Urology-1 [address] [facility] [address] [place] [address] 07/02/2024 13:38:52 07/02/2024 14:57:03 Chronic urinary tract infection 712253338 N39.0 UA negativeCo ntinue Methenamin e 1 gram bidContinu e Estrace creamRTC in 3 months for f/u Nocturia 742606166 R35.1 [id number] TERE LANGE NP [facility] [address] [facility] [address] [place] [address] 07/16/2024 13:55:09 07/16/2024 14:53:16 History of pancreatitis 2511308539 9107 Z87.19 Early satiety 423488899 R68.81 Nausea 586902867 R11.0 Abdominal pain 85429835 R10.9 Chronic id iopathic constipation 12701088 K59.04 Steatotic liver disease 110761193 K76.0 Exocrine p ancreatic insufficiency 43743126 K86.81 Slow trans it constipation 05252282 K59.01 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 Health Concerns Section Related Observation LastModified by Organization Detai ls LastModified Time None Recorded Concern Status LastModified by Organization Details LastModified Time None Recorded Advance Directives Directive None Recorded Payers Encounter Date Sequence Insurance Name Policy Number Policy Graves Covered Member ID Graevs Member ID Guarantor Name 02/14/2024 1 [employer] (MEDICARE REPLACEMENT/A DVANTAGE - PPO) [id number] Dianne K Withers [id number] Dianne Withers 02/29/2024 1 [employer] (MEDICARE REPLACEMENT/A DVANTAGE - PPO) [id number] Dianne K Withers [id number] Dianne Withers 06/06/2024 1 [employer] (MEDICARE REPLACEMENT/A DVANTAGE - PPO) [id number] Dianne K Withers [id number] Dianne Withers 07/02/2024 1 [employer] (MEDICARE REPLACEMENT/A DVANTAGE - PPO) [id number] Dianne K Withers [id number] Dianne Withers 07/16/2024 1 [facility] (MEDICARE REPLACEMENT/A DVANTAGE - PPO) [id number] Dianne Soto Withers [id number] Dianne Withrubin Notes Date Note Type Note Provider Name and Address Organization Details Recorded Time 4 text/html 02/14/2024 83 yowf RTc for 8 week f/u of Recurrent UTIs. renal ultrasound on 12/19/2023 was unremarkable. At last visit on 12/15/2023 patient was started on methenamine 1 g b.i.d.. Patient reports since starting the medications she has not experienced any UTI or UTI like symptoms. She reports she is tolerating the medication without any overt side effects. Reports urinary stream is good. Nocturia times 1-2. She denies any dysuria or gross hematuria. Patient reports she does have occasional fecal leakage. Patient reports she sees Dr. Goode. PVR at last visit was 40ml. 12/15/2023 83 yowf presents to the office for evaluation of reoccurring UTIs. Location is LUT. Quality is pressure and painful urination. Severity- varies. Reports that she started experiencing reoccurring UTI's since 1959, has had 4-5 UTIs this year, last UTI was approx 4 weeks ago. UTIs have all been treated with antibiotics, sxs typically improve after 3-4 days being on antibiotic ttx. When experiences UTI has dysuria, urinary urgency/frequency. Has not had any labs or diagnostic tests performed. States has seen Dr Melendez in the past and had cystoscopy performed. Reports has not been on any suppressive medication. States is on Premarin cream 3 times per week. Pt is also on Vitamin C daily. Currently, states f/c stream good, nocturia 1-2, bowels move regularly, bladder empties thoroughly; currently denies any dysuria, gross hematuria, flank pain, fevers, chills, nausea, or vomiting. Reports has occasional urge incontinence, will only occur in the mornings. No h/o DM. History of kidney stones approximately 15 years ago, passed a stone. History of hysterectomy 40 years ago related to ovarian cyst. History of gastric bypass.Patient has a past medical history of stage III renal failure sees Dr. Hylton at the [facility]. Patient reports she has had cardiac and renal stents placed her her local operator. Pt had pain pump placed last with with Dr Orantes in [place]. Li Ramirez, [place], S [address], [place], [address], [facility] - [facility] - [place] & [place] 02/14/2024 14:22:11 4 text/html Previous: Dianne Mcneal is a 83-year-old female here today by referral for recurrent pancreatitis and nausea.She was seen by her primary care provider on 11/25/2023 for complaints of N/V, upper abdominal pain, and recurrent UTI. The patient requested a GI referral for recurrent pancreatitis. She states she was hospitalized earlier this year for 6 days at [facility]. CT scan revealed There is worsening stranding adjacent to the head of the pancreas and uncinate process consistent with worsening, acute pancreatitis . Other findings include fatty infiltration of the liver. Today she reports this was the first time she was diagnosed with pancreatitis. Today she complains of intermittent LUQ pain that she says feels like a deep spasm. This has been ongoing for two years, but is occurring more frequently. Positioning triggers pain. No correlation with constipation or BM. Relaxing does relieve it. She complains of postprandial nausea and early satiety. She typically has a big appetite. She had a pain pump placed 7 weeks ago for chronic back pain. She reports occasional constipation, but typically goes daily. Stool is mostly formed, but she does occasionally have fecal incontinence. Evacuation feels incomplete. She uses MiraLax as needed. She sees bright red blood occasionally, history of hemorrhoids. Last colonoscopy within the year with polyp removal, done in [place]. She was seen by Dr. Olvin Hogan in 2020 for choledocholithiasis at gastroenterology. The note I have available is from 02/04/21. His note states that the patient had choledocholithiasis and because she was 20 years status post a Miguelito-en-Y gastric bypass and CCx, she required an edge procedure (EUS directed gastro-gastrostomy) performed by Dr. Nnamdi Mackey. He first placed a stent across her gastric pouch into her excluded gastric lumen in January 2020. This allowed for a 2nd procedure with ERCP in March 2020 to clear her biliary system from sludge and stones that were causing her symptoms. A metal stent and pigtail stent were left in place and Dr. Mackey performed another ERCP and remove the biliary stents and we cleared her ducts of debris in May 2020 followed by EGD to remove stents. She was initially sent to [facility] gastroenterology in [address] 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 She had no evidence of any advanced liver disease or cirrhosis. She denies right sided abdominal pain. CURRENT (triston Lange):Ms. Mcneal is an 83 year old here for follow up of pancreatitis, n/v, abdominal pain and early satiety. Recent EUS and EGD showed signs of previous gastric bypass, chronic pancreatitis and fatty liver. She reports recent issues with constipation with hard stools and lingering. Uses mirlax but still feels incomplete emptying. Denies unintentional weight loss or bloody bowel movements. TERE LANGE, [employer] [address] [facility], [place], [address], [place] - [facility] - [place] & [place] 03/07/2024 15:14:58 5 text/html Previous: Dianne Mcneal is a 83-year-old female here today by referral for recurrent pancreatitis and nausea.She was seen by her primary care provider on 11/25/2023 for complaints of N/V, upper abdominal pain, and recurrent UTI. The patient requested a GI referral for recurrent pancreatitis. She states she was hospitalized earlier this year for 6 days at [facility]. CT scan revealed There is worsening stranding adjacent to the head of the pancreas and uncinate process consistent with worsening, acute pancreatitis . Other findings include fatty infiltration of the liver. Today she reports this was the first time she was diagnosed with pancreatitis. Today she complains of intermittent LUQ pain that she says feels like a deep spasm. This has been ongoing for two years, but is occurring more frequently. Positioning triggers pain. No correlation with constipation or BM. Relaxing does relieve it. She complains of postprandial nausea and early satiety. She typically has a big appetite. She had a pain pump placed 7 weeks ago for chronic back pain. She reports occasional constipation, but typically goes daily. Stool is mostly formed, but she does occasionally have fecal incontinence. Evacuation feels incomplete. She uses MiraLax as needed. She sees bright red blood occasionally, history of hemorrhoids. Last colonoscopy within the year with polyp removal, done in [place]. She was seen by Dr. Olvin Hogan in 2020 for choledocholithiasis at gastroenterology. The note I have available is from 02/04/21. His note states that the patient had choledocholithiasis and because she was 20 years status post a Miguelito-en-Y gastric bypass and CCx, she required an edge procedure (EUS directed gastro-gastrostomy) performed by Dr. Nnamdi Mackey. He first placed a stent across her gastric pouch into her excluded gastric lumen in January 2020. This allowed for a 2nd procedure with ERCP in March 2020 to clear her biliary system from sludge and stones that were causing her symptoms. A metal stent and pigtail stent were left in place and Dr. Mackey performed another ERCP and remove the biliary stents and we cleared her ducts of debris in May 2020 followed by EGD to remove stents. She was initially sent to [facility] gastroenterology in [address] 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 She had no evidence of any advanced liver disease or cirrhosis. She denies right sided abdominal pain. PREVIOUS (triston Lange):Ms. Mcneal is an 83 year old here for follow up of pancreatitis, n/v, abdominal pain and early satiety. Recent EUS and EGD showed signs of previous gastric bypass, chronic pancreatitis and fatty liver. She reports recent issues with constipation with hard stools and lingering. Uses mirlax but still feels incomplete emptying. Denies unintentional weight loss or bloody bowel movements. CURRENT:Ms. Mcneal is back in office for 2 month follow up. She reports no issues with constipation. She only uses Trulance as needed. She feels she does not need it. Reports bowel movement every day with complete emptying. She reports her abdominal pain is worse. She is very uncomfortable. It is usually on right upper quadrant under her ribs but occasionally on left upper quadrant. Pain is worse when bending over. She also has associated bloating and early satiety. She denies unintentional weight loss, vomiting, irregular stools, or bloody stool. 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 Patient reports she went to [facility] to have a CT scan performed related to pancreatitis while having CT scan performed had severe right leg pain to where she was unable to walk. Patient went to the emergency room for further evaluation. CT scan of abdomen without contrast revealed interval resolution of previously seen acute pancreatitis otherwise no acute intra-abdominal abnormality. Urinalysis was positive for UTI and urine culture was positive for E coli that was pansensitive. Patient was treated with Macrobid. Lab work revealed BUN 43, creatinine 2.30, GFR 25. Pt sees Dr Hylton business risk consultant at . patient with history of recurrent UTIs that is managed with methenamine 1 g b.i.d. and Estrace cream 3 times per week. This is the 1st UTI patient has experienced since 12/15/2023. Reports currently urinary stream is good. Nocturia x1. She denies any dysuria gross hematuria. 02/14/2024 83 yowf RTc for 8 week f/u of Recurrent UTIs. renal ultrasound on 12/19/2023 was unremarkable. At last visit on 12/15/2023 patient was started on methenamine 1 g b.i.d.. Patient reports since starting the medications she has not experienced any UTI or UTI like symptoms. She reports she is tolerating the medication without any overt side effects. Reports urinary stream is good. Nocturia times 1-2. She denies any dysuria or gross hematuria. Patient reports she does have occasional fecal leakage. Patient reports she sees Dr. Goode. PVR at last visit was 40ml. 12/15/2023 83 yowf presents to the office for evaluation of reoccurring UTIs. Location is LUT. Quality is pressure and painful urination. Severity- varies. Reports that she started experiencing reoccurring UTI's since 1959, has had 4-5 UTIs this year, last UTI was approx 4 weeks ago. UTIs have all been treated with antibiotics, sxs typically improve after 3-4 days being on antibiotic ttx. When experiences UTI has dysuria, urinary urgency/frequency. Has not had any labs or diagnostic tests performed. States has seen Dr Melendez in the past and had cystoscopy performed. Reports has not been on any suppressive medication. States is on Premarin cream 3 times per week. Pt is also on Vitamin C daily. Currently, states f/c stream good, nocturia 1-2, bowels move regularly, bladder empties thoroughly; currently denies any dysuria, gross hematuria, flank pain, fevers, chills, nausea, or vomiting. Reports has occasional urge incontinence, will only occur in the mornings. No h/o DM. History of kidney stones approximately 15 years ago, passed a stone. History of hysterectomy 40 years ago related to ovarian cyst. History of gastric bypass.Patient has a past medical history of stage III renal failure sees Dr. Hylton at the [facility]. Patient reports she has had cardiac and renal stents placed her her local operator. Pt had pain pump placed last with with Dr Orantes in [place]. 06/22/2024: CT scan of abdomen without contrast no pathology. Urine culture positive for E coli that was pansensitive. 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 Nnamdi Mackey. He first placed a stent across her gastric pouch into her excluded gastric lumen in January 2020. This allowed for a 2nd procedure with ERCP in March 2020 to clear her biliary system from sludge and stones. 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 She was referred to us for recurrent pancreatitis and nausea.She was seen by her primary care provider on 11/25/2023 for complaints of N/V, upper abdominal pain, and recurrent UTI. She was treated with Trulance for abdominal pain r/t constipation initially. Constipation improved but she continued to have abdominal pain, bloating and early satiety. CT A/P was obtained after last visit which showed resolved pancreatitis otherwise unremarkable. She was started on Creon 2 60,000 two pills with meals and one with snack. She feels she is digesting better with less bloating. She still have generalized abdominal pain and fatigue. She reports feeling bad all the time. She has not seen vascular surgery in about 2 years. She reports her local operator was keeping and eye on it . She does report some continued issues with complete emptying. We discussed increasing Creon to 3 pills with meals and 2 with snack to see if she noticed improvement. I also recommended a daily OTC laxative if she Trulance is to much for daily use. CTA was not obtained intially. Her kidney function is poor so I recommend referral to vascular surgery to let them determine what imaging they feel is needed. TERE LANGE, ALDEN [address], [place], [address], [facility] - [place] - [place] & [place] 07/16/2024 23:50:51 OBGyn Episode No OBEpisode recorded.
--- OUTSIDE RECORDS SUMMARY | 2024-08-31 07:55 | XMS_ITS | Clinical Summary ---
Author Organization [facility] Address [address] [place] [address] Phone Care Team Providers Care Ink Printer Name Role Phone Campbell MAURO, Andrés Cabrera Unavailable [phone] BELLA MAURO, VINAY Fisher Unavailable [phone] Reason for Visit and Chief Complaint The Chief Complaint is: low back pain Problems Includes: Problems addressed during this encounter and other active Problems Current Visit Onset Date Resolved Date Provider Watson guzman Status Lower Back Pain 09/21/2021 Arthur Ramos PA-C A ctive Last Documented On 2 12:57PM ; [facility] Plan of Treatment Fall Risk Assessment: This [...] Last Documented On 04/12/2022 10:36AM ; [facility] Instructions to patient Lose weight Last Documented On 2 12:54PM ; [facility], [facility] Assessments Includes: Assessments from this encounter No Assessments Recorded Instructions Includes: Instructions from this encounter Instructions to patient Lose weight Last Documented On 2 12:54PM ; [facility] Medical Equipment - Implanted Devices Includes: Current Devices No Medical Equipment Recorded Medications Includes: Medications discussed during this encounter and other current Medications Current Medications (continue as prescribed) Cephalexin 500 MG Oral Tablet 03/04/2022 Provider: Diagnosis: Last Documented On 2 1:43PM By Karma Dia ; [facility], [facility] Meloxicam 15 MG Oral Tablet 09/16/2021 Provider: VINYA BLANCO MD Diagnosis: Last Documented On 2 1:00PM By Nickie Max ; [facility], [facility] Pravastatin Sodium 40 MG Oral Tablet 09/06/2021 Prov ider: VINAY BLANCO MD Diagnosis: Last Documented On 2 1:00PM By Nickie Max ; [facility], [facility] traZODone HCl 50 MG Oral Tablet 08/24/2021 Provider: CHELSEY JUDGE Diagnosis: Last Documented On 2 1:00PM By Nickie Max ; [facility], [facility] Verapamil HCl 120 MG Oral Tablet 08/24/2021 Provider : CHELSEY JUDGE Diagnosis: Last Documented On 2 1:00PM By Nickie Max ; [facility], [facility] Fenofibrate 145 MG Oral Tablet 08/22/2021 Provider: VINAY BLANCO MD Diagnosis: Last Documented On 2 1:00PM By Nickie Max ; [facility], [facility] Synthroid 75 MCG Oral Tablet 08/22/2021 Provider: VINAY BLANCO MD Diagnosis: Last Documented On 2 1:00PM By Nickie Max ; [facility], [facility] Ursodiol 300 MG Oral Capsule 08/18/2021 Provider: CHELSEY JUDGE Diagnosis: Last Documented On 2 1:00PM By Nickie Max ; [facility], [facility] Past Medications on file Percocet 5-325 MG Oral Tablet 01/18/2022 - 02/02/2022 Provider: Cem Amado MD Diagnosis: 1 po q 4h prn pain Last Documented On 2 2:12PM By Cem Amado ; [facility], [facility] Medications Administered Includes: Administered Medications from [...] 2 12:54PM ; [facility] No recent change [...] 1000F Last Documented On 2 12:54PM ; [facility] no influenza immunization patient refuse d Last Documented On 2 12:54PM ; [facility] patient screened for future fall risk 3288F Last Documented On 2 12:54PM ; [facility] patient screened for future fall risk: documentation of any fall with injury in past year 1100F Last Documented On 2 12:54PM ; [facility] an X-ray was performed 19588 Last Documented On 2 12:54PM ; [facility] Surgical History Last Updated History of heart surgery 09/21/2021 Last Documented On 12:54PM ; [facility] History of History of Gallbladder 2021 Last Documented On 12:54PM ; [facility], [facility] History of hysterectomy 09/21/2021 Last Documented On 12:54PM ; [facility] History of shoulder arthroplasty 022 Last Documented On 2 12:54PM ; [facility] Medical History Includes: Medical History addressed during this encounter Description Last Updated Past Surgical History: uteri n suspension ~breast biopsy ~bladder biopsy ~bladder and urethra stretch ~heart cath ~gastric bypass ~cateracts ~skin cancer ~Edge procedure 09/21/2021 Last Documented On 2 12:54PM ; [facility], [facility] History of asthma 09/21/2021 Last Documented On 2 12:54PM ; [facility] History of diverticulitis of colon 09/21 Last Documented On 2 12:54PM ; [facility], [facility] History of gastric ulcer 09/21/2021 Last Documented On 2 12:54PM ; [facility] History of heart disease 09/21/2021 Last Documented On 2 12:54PM ; [facility], [facility] History of History of Blood Clots 2021 Last Documented On 2 12:54PM ; [facility] History of History of Heart Attack / Str stephanie 09/21/2021 Last Documented On 2 12:54PM ; [facility] History of Hypertension 09/21/2021 Last Documented On 2 12:54PM ; [facility] History of Irregular Heartbeat 2 Last Documented On 2 12:54PM ; [facility] History of Kidney Disease 09/21/2021 Last Documented On 2 12:54PM ; [facility] History of Thyroid Disease 09/21/2021 Last Documented On 2 12:54PM ; [facility] No recent immunization for flu 2 Last Documented On 2 12:54PM ; [facility] No recent immunization for pneumococcal pneumonia 09/21/2021 Last Documented On 2 12:54PM ; [facility] Family History Includes: Family History addressed during this encounter Description Last Updated Diabetes mellitus 09/21/2021 Last Documented On 2 12:54PM ; [facility] Family history of cancer 09/21/2021 Last Documented On 2 12:54PM ; [facility] Family history of osteoporosis 2 Last Documented On 2 12:54PM ; [facility] Family history of rheumatoid arthritis 0 09/21/2021 Last Documented On 2 12:54PM ; [facility] Family history of systemic hypertension 09/21/2021 Last Documented On 2 12:54PM ; [facility] Fraternal history of diabetes mellitus 0 09/21/2021 Last Documented On 2 12:54PM ; [facility] Fraternal history of family history of c ancer 09/21/2021 Last Documented On 2 12:54PM ; [facility] Fraternal history of family history of h eart disease 09/21/2021 Last Documented On 2 12:54PM ; [facility], [facility] Fraternal history of osteoporosis 2021 Last Documented On 2 12:54PM ; [facility], [facility] Fraternal history of systemic hypertensi on 09/21/2021 Last Documented On 2 12:54PM ; [facility] Maternal grandfather's history of family history of heart disease 09/21/2021 Last Documented On 2 12:54PM ; [facility] Maternal grandfather's history of system ic hypertension 09/21/2021 Last Documented On 2 12:54PM ; [facility] Maternal history of family history of he art disease 09/21/2021 Last Documented On 2 12:54PM ; [facility], [facility] Maternal history of osteoporosis 022 Last Documented On 2 12:54PM ; [facility] Maternal history of rheumatoid arthritis 09/21/2021 Last Documented On 2 12:54PM ; [facility] Maternal history of systemic hypertensio n 09/21/2021 Last Documented On 2 12:54PM ; [facility] Paternal grandfather's history of family history of heart disease 09/21/2021 Last Documented On 2 12:54PM ; [facility], [facility] Paternal history of family history of he art disease 09/21/2021 Last Documented On 2 12:54PM ; [facility] Paternal history of systemic hypertensio n 09/21/2021 Last Documented On 2 12:54PM ; [facility] Sororal history of diabetes mellitus Last Documented On 2 12:54PM ; [facility] Sororal history of family history of can cer 09/21/2021 Last Documented On 2 12:54PM ; [facility] Sororal history of family history of hea rt disease 09/21/2021 Last Documented On 2 12:54PM ; [facility] Sororal history of systemic hypertension 09/21/2021 Last Documented On 2 12:54PM ; [facility] Review of Systems Includes: Review of [...] Active Last Documented On 2 1:42PM ; [facility] Sulfa Antibiotics Allergy 09/21/2021 A ctive Last Documented On 2 1:42PM ; [facility] penicillAMINE Allergy 09/21/2021 Activ e Last Documented On 2 1:42PM ; [facility] [place] Allergy 09/21/2021 Active Last Documented On 2 1:42PM ; [facility] Latex Allergy 09/21/2021 Active Last Documented On 2 1:42PM ; [facility] Erythromycin Allergy 09/21/2021 Active Last Documented On 2 1:42PM ; [facility] Cortisone Shots Allergy 09/21/2021 Act ron Last Documented On 2 1:42PM ; [facility] Claritin Allergy 09/21/2021 Active Last Documented On 2 1:42PM ; [facility], [facility] Ciprofloxacin Allergy 09/21/2021 Activ e Last Documented On 2 1:42PM ; [facility], [facility] Atenolol Allergy 09/21/2021 Active Last Documented On 2 1:42PM ; [facility], [facility] Encounters Encounter Provider Location Date Check-In Time Check- Out Time Diagnosis Post Op Cem Amado MD [facility] 2 12:52PM 1:57PM Insurance Includes: Active Insurance Policies Plan Name Member ID Group # Subscriber Relationship Effect ron Dates 1 - [facility] /MEDICARE [id number] Dianne Mcneal Self 05/02/2021 - Unknown Clinical Notes Includes: Clinical Notes from this encounter No Clinical Notes Recorded
--- OUTSIDE RECORDS SUMMARY | 2024-08-31 07:55 | XMS_ITS ---
Care Plan - [facility] Created on: August 31, 2024 Elizabet Dianne : 1940 Sex: Female Author Organization [facility] Address [address] [place] [address] Phone Care Team Providers Care Sociology Faculty Member Name Role Phone Campbell MAURO, Andrés Cabrera Unavailable [phone] BELLA MAURO, VINAY Fisher Unavailable [phone]
--- OUTSIDE RECORDS SUMMARY | 2024-08-31 07:55 | XMS_ITS ---
Author Organization [facility] , [facility] Address [address] [place] [address] Phone Care Team Providers Care Telex Operator Name Role Phone Campbell MAURO, Andrés Cabrera Unavailable [phone] BELLA MAURO, VINAY Fisher Unavailable [phone] Reason for Referral Date Encounter [...] ctive Last Documented On 2 12:57PM ; [facility], [facility] Plan of Treatment Pending Tests Order Diagnosis Results Due Ordering P rovider Radiology - CT Scan Lumbar 10/05/21 Sergio Ramos PA-C Last Documented On 2 4:06PM ; [facility] Instructions to patient Lose weight Last Documented On 2 1:42PM ; [facility] Lose weight Last Documented On 2 11:05AM ; [facility] No intervention and counseli ng on cessation of tobacco use Last Documented On 2 1:33PM ; [facility] Lose weight Last Documented On 2 1:33PM ; [facility] Lose weight Last Documented On 2 12:54PM ; [facility] No intervention and counseli ng on [...] On 2 1:43PM By Karma Dia ; [facility], [facility] Meloxicam 15 MG Oral Tablet 09/16/2021 Provider: VINAY BLANCO MD Diagnosis: Last Documented On 2 1:00PM By Nickie Max ; [facility], [facility] Pravastatin Sodium 40 MG Oral Tablet 09/06/2021 Prov ider: VINAY BLANCO MD Diagnosis: Last Documented On 2 1:00PM By Nickie Max ; [facility], [facility] traZODone HCl 50 MG Oral Tablet 08/24/2021 Provider: CHELSEY JUDGE Diagnosis: Last Documented On 2 1:00PM By Nickie Max ; [facility], [facility] Verapamil HCl 120 MG Oral Tablet 08/24/2021 Provider : CHELSEY JUDGE Diagnosis: Last Documented On 2 1:00PM By Nickie Max ; [facility], [facility] Fenofibrate 145 MG Oral Tablet 08/22/2021 Provider: VINAY BLANCO MD Diagnosis: Last Documented On 2 1:00PM By Nickie Max ; [facility], [facility] Synthroid 75 MCG Oral Tablet 08/22/2021 Provider: VINAY BLANCO MD Diagnosis: Last Documented On 2 1:00PM By Nickie Max ; [facility], [facility] Ursodiol 300 MG Oral Capsule 08/18/2021 Provider: CHELSEY JUDGE Diagnosis: Last Documented On 2 1:00PM By Nickie Max ; [facility] Past Medications on file Percocet 5-325 MG Oral Tablet 01/18/2022 - 02/02/2022 Provider: Cem Amado MD Diagnosis: 1 po q 4h prn pain Last Documented On 2 2:12PM By Cem Amado ; [facility] hydroCHLOROthiazide 25 MG Or al Tablet 09/04/2021 - 02/18/2022 Provider: CHELSEY JUDGE Diagnosis: Last Documented On 2 11:08AM By Karma Dia ; [facility], [facility] Medications Administered Includes: Administered Medications in patient's chart No Administered Medications Recorded Results Includes: Results from 09/01/2023 through 08/31/2024 No Results Recorded For Specified Dates History of Present Illness History of Present Illness not supported for this document type No History of Present Illness Recorded Social History Description Last Updated Tobacco non-user 04/16/2022 Last Documented On 2 6:04PM ; [facility] No tobacco use 12/20/2021 Last Documented On 2 10:54AM ; [facility] Not a smoker 12/03/2021 Last Documented On 2 6:04PM ; [facility] Caffeine use 09/21/2021 Last Documented On 2 4:06PM ; [facility] No recent change in diet 09/21/2021 Last Documented On 2 4:06PM ; [facility] Not a current smoker. 09/21/2021 Last Documented On 2 4:06PM ; [facility] Not exercising regularly 09/21/2021 Last Documented On 2 4:06PM ; [facility] Not using alcohol 09/21/2021 Last Documented On 2 4:06PM ; [facility] Not using drugs 09/21/2021 Last Documented On 2 4:06PM ; [facility] Former smoker 09/21/2021 Last Documented On 2 4:06PM ; [facility] Never drank alcohol 09/21/2021 Last Documented On 2 4:06PM ; [facility] Never used drugs 09/21/2021 Last Documented On 2 4:06PM ; [facility] Non-smoker 09/21/2021 Last Documented On 2 4:06PM ; [facility] Smoking Status Unknown Procedures and Surgical History Surgical History Last Updated History of heart surgery 09/21/2021 Last Documented On 2 4:06PM ; [facility] History of History of Gallbladder 2021 Last Documented On 2 4:06PM ; [facility] History of hysterectomy 09/21/2021 Last Documented On 2 4:06PM ; [facility] History of shoulder arthroplasty 022 Last Documented On 2 4:06PM ; [facility] Medical History Includes: Medical History in patient's chart Description Last Updated Past Surgical History: uteri n suspension ~breast biopsy ~bladder biopsy ~bladder and urethra stretch ~heart cath ~gastric bypass ~cateracts ~skin cancer ~Edge procedure 09/21/2021 Last Documented On 2 4:06PM ; [facility] History of asthma 09/21/2021 Last Documented On 2 4:06PM ; [facility] History of diverticulitis of colon 09/21 Last Documented On 2 4:06PM ; [facility] History of gastric ulcer 09/21/2021 Last Documented On 2 4:06PM ; [facility] History of heart disease 09/21/2021 Last Documented On 2 4:06PM ; [facility] History of History of Blood Clots 2021 Last Documented On 2 4:06PM ; [facility] History of History of Heart Attack / Str stephanie 09/21/2021 Last Documented On 2 4:06PM ; [facility] History of Hypertension 09/21/2021 Last Documented On 2 4:06PM ; [facility] History of Irregular Heartbeat 2 Last Documented On 2 4:06PM ; [facility] History of Kidney Disease 09/21/2021 Last Documented On 2 4:06PM ; [facility] History of Thyroid Disease 09/21/2021 Last Documented On 2 4:06PM ; [facility] No recent immunization for flu 2 Last Documented On 2 4:06PM ; [facility] No recent immunization for pneumococcal pneumonia 09/21/2021 Last Documented On 2 4:06PM ; [facility] Family History Includes: Family History in patient's chart Description Last Updated Diabetes mellitus 09/21/2021 Last Documented On 2 4:06PM ; [facility] Family history of cancer 09/21/2021 Last Documented On 2 4:06PM ; [facility] Family history of osteoporosis 2 Last Documented On 2 4:06PM ; [facility] Family history of rheumatoid arthritis 0 09/21/2021 Last Documented On 2 4:06PM ; [facility] Family history of systemic hypertension 09/21/2021 Last Documented On 2 4:06PM ; [facility] Fraternal history of diabetes mellitus 0 09/21/2021 Last Documented On 2 4:06PM ; [facility] Fraternal history of family history of c ancer 09/21/2021 Last Documented On 2 4:06PM ; [facility] Fraternal history of family history of h eart disease 09/21/2021 Last Documented On 2 4:06PM ; [facility] Fraternal history of osteoporosis 2021 Last Documented On 2 4:06PM ; [facility] Fraternal history of systemic hypertensi on 09/21/2021 Last Documented On 2 4:06PM ; [facility] Maternal grandfather's history of family history of heart disease 09/21/2021 Last Documented On 2 4:06PM ; [facility] Maternal grandfather's history of system ic hypertension 09/21/2021 Last Documented On 2 4:06PM ; [facility] Maternal history of family history of he art disease 09/21/2021 Last Documented On 2 4:06PM ; [facility] Maternal history of osteoporosis 022 Last Documented On 2 4:06PM ; [facility] Maternal history of rheumatoid arthritis 09/21/2021 Last Documented On 2 4:06PM ; [facility] Maternal history of systemic hypertensio n 09/21/2021 Last Documented On 2 4:06PM ; [facility] Paternal grandfather's history of family history of heart disease 09/21/2021 Last Documented On 2 4:06PM ; [facility] Paternal history of family history of he art disease 09/21/2021 Last Documented On 2 4:06PM ; [facility] Paternal history of systemic hypertensio n 09/21/2021 Last Documented On 2 4:06PM ; [facility] Sororal history of diabetes mellitus Last Documented On 2 4:06PM ; [facility] Sororal history of family history of can cer 09/21/2021 Last Documented On 2 4:06PM ; [facility] Sororal history of family history of hea rt disease 09/21/2021 Last Documented On 2 4:06PM ; [facility] Sororal history of systemic hypertension 09/21/2021 Last Documented On 2 4:06PM ; [facility] Review of Systems Review of Systems [...] Active Last Documented On 2 1:42PM ; [facility] Sulfa Antibiotics Allergy 09/21/2021 A ctive Last Documented On 2 1:42PM ; [facility] penicillAMINE Allergy 09/21/2021 Activ e Last Documented On 2 1:42PM ; [facility] Melber Allergy 09/21/2021 Active Last Documented On 2 1:42PM ; [facility] Latex Allergy 09/21/2021 Active Last Documented On 2 1:42PM ; [facility] Erythromycin Allergy 09/21/2021 Active Last Documented On 2 1:42PM ; [facility] Cortisone Shots Allergy 09/21/2021 Act ron Last Documented On 2 1:42PM ; [facility] Claritin Allergy 09/21/2021 Active Last Documented On 2 1:42PM ; [facility] Ciprofloxacin Allergy 09/21/2021 Activ e Last Documented On 2 1:42PM ; [facility] Atenolol Allergy 09/21/2021 Active Last Documented On 2 1:42PM ; [facility] Insurance Includes: Active Insurance Policies Plan Name Member ID Group # Subscriber Relationship Effect ron Dates 1 - [facility] /MEDICARE [id number] Dianne Elizabet Self 05/02/2021 - Unknown Clinical Notes Includes: Signed Clinical Notes starting from 04/15/2022 No Clinical Notes Recorded
--- OUTSIDE RECORDS SUMMARY | 2024-08-31 07:56 | XMS_ITS | Clinical Summary ---
Author Organization [facility] Address [address] [place] [address] Phone Care Team Providers Care Extractions Technician Name Role Phone Campbell MAURO, Andrés Cabrera Unavailable [phone] BELLA MAURO, VINAY Fisher Unavailable [phone] Reason for Visit and Chief Complaint The Chief Complaint is: low back pain Problems Includes: Problems addressed during this encounter and other active Problems Current Visit Onset Date Resolved Date Provider Watson guzman Status Lower Back Pain 09/21/2021 Arthur Ramos PA-C A ctive Last Documented On 12:57PM ; [facility] Plan of Treatment Fall Risk Assessment: [...] - Last Documented On 02/14/2022 10:30AM ; [facility] Instructions to patient No intervention and counseli ng on cessation of tobacco use Last Documented On 2 1:33PM ; [facility] Lose weight Last Documented On 2 1:33PM ; [facility] Assessments Includes: Assessments from this encounter No Assessments Recorded Instructions Includes: Instructions from this encounter Instructions to patient No intervention and counseli ng on cessation of tobacco use Last Documented On 2 1:33PM ; [facility] Lose weight Last Documented On 2 1:33PM ; [facility] Medical Equipment - Implanted Devices Includes: Current Devices No Medical Equipment Recorded Medications Includes: Medications discussed during this encounter and other current Medications Current Medications (continue as prescribed) Cephalexin 500 MG Oral Tablet 03/04/2022 Provider: Diagnosis: Last Documented On 2 1:43PM By Karma Dia ; [facility], [facility] Meloxicam 15 MG Oral Tablet 09/16/2021 Provider: VINAY BALNCO MD Diagnosis: Last Documented On 2 1:00PM By Nickie Max ; [facility], [facility] Pravastatin Sodium 40 MG Oral Tablet 09/06/2021 Prov ider: VINAY BLANCO MD Diagnosis: Last Documented On 2 1:00PM By Nickie Max ; [facility], [facility] traZODone HCl 50 MG Oral Tablet 08/24/2021 Provider: CHELSEY JUDGE Diagnosis: Last Documented On 2 1:00PM By Nickie Max ; [facility], [facility] Verapamil HCl 120 MG Oral Tablet 08/24/2021 Provider : CHELSEY JUDGE Diagnosis: Last Documented On 2 1:00PM By Nickie Max ; [facility], [facility] Fenofibrate 145 MG Oral Tablet 08/22/2021 Provider: VINAY BLANCO MD Diagnosis: Last Documented On 2 1:00PM By Nickie Max ; [facility], [facility] Synthroid 75 MCG Oral Tablet 08/22/2021 Provider: VINAY BLANCO MD Diagnosis: Last Documented On 2 1:00PM By Nickie Max ; [facility], [facility] Ursodiol 300 MG Oral Capsule 08/18/2021 Provider: CHELSEY JUDGE Diagnosis: Last Documented On 2 1:00PM By Nickie Max ; [facility], [facility] Past Medications on file Percocet 5-325 MG Oral Tablet 01/18/2022 - 02/02/2022 Provider: Cem Amado MD Diagnosis: 1 po q 4h prn pain Last Documented On 2 2:12PM By Cem Amado ; [facility], [facility] Medications Administered Includes: Administered Medications from this encounter No Administered Medications Recorded Vital Signs Includes: Vital Signs from this encounter Vital Name 02/04/2022 01:33P Blood Pressure Sitting (mmHg) 113/61 Pulse Rate-Sitting (bpm) 93 Height (in) 62 Weight (lb) 175 Body Mass Index (kg/m2) 32.0 Body Surface Area (m2) 1.8 Note: kns Last Documented: On 02/04/2022 1:34PM ; [facility] Results Includes: Results [...] 12/20/2021 Last Documented On 2 1:33PM ; [facility] Not a smoker [...] On 2 1:33PM ; [facility] Non-smoker 09/21/2021 Last Documented On 2 1:33PM ; [facility] Smoking Status Unknown Procedures and Surgical History Includes: Procedures from this encounter Procedures Code Diagnosis Performing Provider Service L ocation Service Date no intervention and counseling on cessation of tobacco use 4000F Last Documented On 2 1:33PM ; [facility] use of tobacco assessment performed 1000F Last Documented On 2 1:33PM ; [facility] no influenza immunization patient refuse d Last Documented On 2 1:33PM ; [facility] patient screened for future fall risk 3288F Last Documented On 2 1:33PM ; [facility] patient screened for future fall risk: documentation of any fall with injury in past year 1100F Last Documented On 2 1:33PM ; [facility] follow-up visit in one month with PCP fo r elevated BP Last Documented On 2 1:33PM ; [facility] an X-ray was performed 34885 Last Documented On 2 1:33PM ; [facility] Surgical History Last Updated History of heart surgery 09/21/2021 Last Documented On 2 1:33PM ; [facility] History of History of Gallbladder 2021 Last Documented On 2 1:33PM ; [facility] History of hysterectomy 09/21/2021 Last Documented On 2 1:33PM ; [facility] History of shoulder arthroplasty 022 Last Documented On 2 1:33PM ; [facility] Medical History Includes: Medical History addressed during this encounter Description Last Updated Past Surgical History: uteri n suspension ~breast biopsy ~bladder biopsy ~bladder and urethra stretch ~heart cath ~gastric bypass ~cateracts ~skin cancer ~Edge procedure 09/21/2021 Last Documented On 2 1:33PM ; [facility] History of asthma 09/21/2021 Last Documented On 2 1:33PM ; [facility] History of diverticulitis of colon 09/21 Last Documented On 2 1:33PM ; [facility] History of gastric ulcer 09/21/2021 Last Documented On 2 1:33PM ; [facility] History of heart disease 09/21/2021 Last Documented On 2 1:33PM ; [facility] History of History of Blood Clots 2021 Last Documented On 2 1:33PM ; [facility] History of History of Heart Attack / Str stephanie 09/21/2021 Last Documented On 2 1:33PM ; [facility] History of Hypertension 09/21/2021 Last Documented On 2 1:33PM ; [facility] History of Irregular Heartbeat 2 Last Documented On 2 1:33PM ; [facility] History of Kidney Disease 09/21/2021 Last Documented On 2 1:33PM ; [facility] History of Thyroid Disease 09/21/2021 Last Documented On 2 1:33PM ; [facility] No recent immunization for flu 2 Last Documented On 2 1:33PM ; [facility], [facility] No recent immunization for pneumococcal pneumonia 09/21/2021 Last Documented On 2 1:33PM ; [facility], [facility] Family History Includes: Family History addressed during this encounter Description Last Updated Diabetes mellitus 09/21/2021 Last Documented On 2 1:33PM ; [facility] Family history of cancer 09/21/2021 Last Documented On 2 1:33PM ; [facility] Family history of osteoporosis 2 Last Documented On 2 1:33PM ; [facility] Family history of rheumatoid arthritis 0 09/21/2021 Last Documented On 2 1:33PM ; [facility] Family history of systemic hypertension 09/21/2021 Last Documented On 2 1:33PM ; [facility] Fraternal history of diabetes mellitus 0 09/21/2021 Last Documented On 2 1:33PM ; [facility] Fraternal history of family history of c ancer 09/21/2021 Last Documented On 2 1:33PM ; [facility] Fraternal history of family history of h eart disease 09/21/2021 Last Documented On 2 1:33PM ; [facility] Fraternal history of osteoporosis 2021 [...] 2 1:33PM ; [facility] Paternal grandfather's history of family history of heart disease 09/21/2021 Last Documented On 2 1:33PM ; [facility] Paternal history of family history of he art disease 09/21/2021 Last Documented On 2 1:33PM ; [facility] Paternal history of systemic hypertensio n 09/21/2021 Last Documented On 2 1:33PM ; [facility] Sororal history of diabetes mellitus Last Documented On 2 1:33PM ; [facility] Sororal history of family history of can cer 09/21/2021 Last Documented On 2 1:33PM ; [facility] Sororal history of family history of hea rt disease 09/21/2021 Last Documented On 2 1:33PM ; [facility] Sororal history of systemic hypertension 09/21/2021 Last Documented On 2 1:33PM ; [facility] Review of Systems Includes: Review of [...] Active Last Documented On 2 1:42PM ; [facility] Sulfa Antibiotics Allergy 09/21/2021 A ctive Last Documented On 2 1:42PM ; [facility] penicillAMINE Allergy 09/21/2021 Activ e Last Documented On 2 1:42PM ; [facility] Grimes Allergy 09/21/2021 Active Last Documented On 2 1:42PM ; [facility] Latex Allergy 09/21/2021 Active Last Documented On 2 1:42PM ; [facility] Erythromycin Allergy 09/21/2021 Active Last Documented On 2 1:42PM ; [facility] Cortisone Shots Allergy 09/21/2021 Act ron Last Documented On 2 1:42PM ; [facility] Claritin Allergy 09/21/2021 Active Last Documented On 2 1:42PM ; [facility] Ciprofloxacin Allergy 09/21/2021 Activ e Last Documented On 2 1:42PM ; [facility] Atenolol Allergy 09/21/2021 Active Last Documented On 2 1:42PM ; [facility] Encounters Encounter Provider Location Date Check-In Time Check- Out Time Diagnosis Post Op Cem Amado MD [facility] 2 1:28PM 1:49PM Insurance Includes: Active Insurance Policies Plan Name Member ID Group # Subscriber Relationship Effect ron Dates 1 - [facility] /MEDICARE [id number] Dianne Mcneal Self 05/02/2021 - Unknown Clinical Notes Includes: Clinical Notes from this encounter No Clinical Notes Recorded
--- OUTSIDE RECORDS SUMMARY | 2024-08-31 07:56 | XMS_ITS | Continuity of Care Document ---
Author Organization [place] [address] Address [address] [facility] [address] [place] [address] Assessment No assessment recorded. Plan of Treatment Reminders Order Date Submit Date Provider Last Modified By Organization Details Last Modified Time Details Appointments Establish ed Visit 15 min 2024 02:00P Rudy PAVON NP Not available Not available Not available Lab urinalysi s, dipstick 2024 025 [email or web address] [place] [address], [address] [address], [place], [address], 07/02/2024 14:59:26 Referral None recorded. Procedures None recorded. Surgeries None recorded. Imaging None recorded. Medication Orders None recorded. Patient TargetsNo targets recorded. Patient InstructionsNo instructions recorded. Reason for Referral None Reported. Results Created Date Observation Date Name Description Value Unit Range Abnormal Flag Note LastModifiedBy Organization Detail LastModifiedTime 07/03/19 25 07/02/2024 urina lysis , dipst ick Leukocytes (reference range) negati ve Not Available [place] [address] [address] [facility] [address], [place], [address], 07/02/2024 14:59:00 07/03/19 25 07/02/2024 urina lysis , dipst ick Nitrite (reference range:) negati ve Not Available [place] [address] [address] [facility] [address], [place], [address], 07/02/2024 14:59:00 07/03/19 25 07/02/2024 urina lysis , dipst ick Urobilinogen (reference range) 0.2 Not Available [place] [address] [address] [facility] [address], [place], [address], 07/02/2024 14:59:00 07/03/19 25 07/02/2024 urina lysis , dipst ick Protein (reference range) negati ve Not Available [place] [address] [address] [facility] [address], [place], [address], 07/02/2024 14:59:00 07/03/19 25 07/02/2024 urina lysis , dipst ick pH (reference range 5-8.5) 6.0 Not Available [place] [address] [address] [facility] [address], [place], [address], 07/02/2024 14:59:00 07/03/19 25 07/02/2024 urina lysis , dipst ick Blood (reference range:) negati ve Not Available [place] [address] [address] [facility] [address], [place], [address], 07/02/2024 14:59:00 07/03/19 25 07/02/2024 urina lysis , dipst ick Specific Hastings (reference range) 1.015 Not Available [place] [address] [address] [facility] [address], [place], [address], 07/02/2024 14:59:00 07/03/19 25 07/02/2024 urina lysis , dipst ick Ketone (reference range) negati ve Not Available [place] [address] [address] [facility] [address], [place], [address], 07/02/2024 14:59:00 07/03/19 25 07/02/2024 urina lysis , dipst ick Bilirubin (reference range) negati ve Not Available [place] [address] [address] [facility] [address], [place], [address], 07/02/2024 14:59:00 07/03/19 25 07/02/2024 urina lysis , dipst ick Glucose (reference range) negati ve Not Available [facility], [place], [address], 07/02/2024 14:59:00 07/03/19 25 07/02/2024 urina lysis , dipst ick Color (reference range: yellow-brown ) Yellow Not Available [facility], [place], [address], 07/02/2024 14:59:00 06/22/19 25 06/22/2024 CT, abdom en, w/wo contr ast No observ ation record ed. [facility] [address], [place], [address], 06/26/2024 13:49:05 Result Notes None recorded. Problems Name Problem SNOMED Code Status Onset Date Resolution Date Notes Provider Name and Address Organization Details Recorded Time Asthma 314775415 Active 2022 Richard fisher, [place] - [facility] - [place] & [place] 3 09:36:31 Heart disease 38876191 Active 2022 Richard fisher, [place] - [facility] - [facility] & [place] 3 09:36:39 Acid reflux 865357678 Active 2022 Richard Thompson null, [place] - [facility] - [facility] & [place] 3 09:36:49 Irritable bowel syndrome 57741384 Active 2022 Richard fisher, [place] - [facility] - [facility] & [place] 3 09:37:01 Diverticulitis 182261790 Active 2022 Richard fisher, [place] - [facility] - [facility] & [place] 3 09:37:10 Chronic interstitial cystitis 689619217 Active 2022 Richard fisher, [place] - [facility] - [place] & [place] 3 09:37:17 Renal failure syndrome 52340599 Active 2022 FANY Hallman - [facility] - [place] & [place] 3 09:37:29 Chronic urinary tract infection 526965878 Active 2022 FANY Hallman - [facility] - [place] & [place] 3 09:37:38 Problem Notes None recorded. Procedures Surgical History Date Name Laterality Status Provider Name and Address Organization Details Recorded Time 01/17/20 24 Procedure Note completed Fernanda SOARES - [facility] - [place] & [place] 01/17/2024 13:13:55 interposition operation for uterine suspension completed Richard Humphries [facility] - [place] & [place] 08/11/2022 09:38:56 Total Hysterectomy completed Ra SOARES - [facility] - [place] & [place] 08/11/2022 09:39:03 biopsy of breast completed Richard Humphries [facility] - [place] & [place] 08/11/2022 09:41:12 biopsy of urinary bladder completed Richard Humphries [facility] - [place] & [place] 08/11/2022 09:41:26 cardiac catheterization completed Richard Humphries [facility] - [place] & [place] 08/11/2022 09:41:51 cholecystectomy completed Richard Humphries [facility] - [place] & [place] 08/11/2022 09:42:02 Gastric bypass for obesity completed Richard Humphries [facility] - [place] & [place] 08/11/2022 09:42:14 Cataract Surgery completed Richard Humphries [facility] - [place] & [place] 08/11/2022 09:42:21 excision of basal cell carcinoma completed Richard Humphries [facility] - [place] & [place] 08/11/2022 09:43:18 procedure on back completed Richard Humphries [facility] - [place] & [place] 08/11/2022 09:43:35 Imaging Results None recorded. Procedure Notes None recorded. Medical Equipment None Reported. Allergies Allergen ID Allergen Name Allergen Category Reaction Reaction Severity Criticality Documentation Date Start Date Code Code System Note Provider Name and Address Organization Details Recorded Time 79748 Tylenol with Codeine medicatio n Not available Not available Not available 08/11/2022 53801 6 RxNorm FANY Hallman [facility] [place] & [place] 3 09:30:52 31183 Product containin g penicilli n (product) medicatio n Not available Not available Not available 08/11/2022 69201 8001 SNOMED FANY Hallman [facility] [place] & [place] 3 09:31:07 76148 Substance with sulfonami de structure and antibacte rial mechanism of action (substanc e) medicatio n Not available Not available Not available 08/11/2022 55826 8003 SNOMED FANY Hallman [facility] [place] & [place] 3 09:31:16 53794 atenolol medicatio n Not available Not available Not available 08/11/2022 1202 RxNorm FANY Hallman [facility] [place] & [place] 3 09:31:22 73869 cortisone medicatio n Not available Not available Not available 08/11/2022 2878 RxNorm FANY Hallman [facility] [place] & [place] 3 09:31:30 04921 Cipro medicatio n Not available Not available Not available 08/11/2022 37529 3 RxNorm FANY Hallman [facility] [place] & [place] 3 09:31:35 80410 Claritin- D medicatio n Not available Not available Not available 08/11/2022 53983 UNK FANY Hallman [facility] [place] & [place] 3 09:31:43 91155 acetamino phen / hydrocodo ne medicatio n Not available Not available Not available 08/11/2022 10459 2 RxNorm FANY Hallman [facility] [place] & [place] 3 09:31:49 03613 erythromy mahsa medicatio n Not available Not available Not available 08/11/2022 4053 RxNorm FANY Hallman - [facility] [place] & [place] 3 09:31:59 19804 latex environme nt,medica tion Not available Not available Not available 08/11/2022 80578 91 RxNorm FANY Hallman - [facility] & [place] 3 09:32:07 Medications Name Sig Start Date [...] completed Not Available Not Available Not Available Meno Saline 0.65 % nasal spray aerosol ADMINIST [...] Available Vitals Date Recorded Body height Body temperature Oxygen saturation Oxygen saturation in Arterial blood by Pulse oximetry Heart rate Systolic blood pressure Diastolic blood pressure Provider Name and Address Organization Details Last Updated DateTime 157.48 cm 97 [degF] 100 % 100 % 70 /min 130 mm[Hg] 70 mm[Hg] Shante Case [facility] & [place] 14:12:48 Social History Question Answer Notes LastModified by Organizat ion Details LastModified Time Tobacco Smoking Status Former Smoker Richard fisher, [facility] & [place] 08/11/2022 09:38:39 What Is Your Level Of Alcohol Consumption? None [email or web address] Information not available 08/11/2022 Sex: Unknown Functional Status None recorded. Mental Status None recorded. Family History Relationship Description Onset Age of this Age Resolved Age Notes LastModified by Organization Details LastModified Time Brother Heart disease dec [email or web address] Not available 2022 09:38:11 Father Heart disease dec [email or web address] Not available 2022 09:38:11 Mother Heart disease dec [email or web address] Not available 2022 09:38:11 Sister Fall dec [email or web address] Not available 08/11/2022 09:38:23 Medical History No medical history recorded. Gynecological HistoryNo gynecological history recorded. Obstetrics History GPAL:G 0 P 0 0 0 0 Past Encounters Encounter ID Performer Location Encounter Start Date Encounter Closed Date Diagnosis/Indication Diagnosis SNOMED-CT Code Diagnosis ICD10 Code Diagnosis Note [id number] JENNIFER PAVON NP [facility] [address] [facility] [address] [place] [address] 06/06/2024 13:30:15 06/06/2024 14:30:50 History of pancreatitis 6733361852 9107 Z87.19 Early satiety 479037817 R68.81 Nausea 591888490 R11.0 Abdominal pain 02423771 R10.9 Chronic id iopathic constipation 41130516 K59.04 - She denies any issues with constipati on and has not been taking Trulance Steatotic liver disease 689271146 K76.0 - CT ordered Exocrine p ancreatic insufficiency 60640636 K86.81 [id number] Li Ramirez, SPLITTING MACHINE OPERATOR, [facility] [address] [place] [address] 07/02/2024 13:38:52 07/02/2024 14:57:03 Chronic urinary tract infection 160300339 N39.0 UA negativeCo ntinue Methenamin e 1 gram bidContinu e Estrace creamRTC in 3 months for f/u Nocturia 907234217 R35.1 Health Concerns Section Related Observation LastModified by Organization Detai ls LastModified Time None Recorded Concern Status LastModified by Organization Details LastModified Time None Recorded Payers Encounter Date Sequence Insurance Name Policy Number Policy Graves Covered Member ID Graves Member ID Guarantor Name 07/02/2024 1 [facility] (MEDICARE REPLACEMENT/A DVANTAGE - PPO) [id number] [employer] [id number] Dianne Mcneal Notes Date Note Type Note Provider Name and Address Organization Details Recorded Time 07/02/2024 text/html 07/02/2024 83 yowf RTC for ER f/u. Patient reports she went to [facility] to have a CT scan performed [...] 2.30, GFR 25. 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 patient with history of recurrent [...] renal failure sees Dr. Hylton at the [facility]. Patient reports she has had cardiac and renal stents placed her her outsole skiver. Pt had pain pump placed last with with Dr Orantes in [place]. 06/22/2024: CT scan of abdomen without contrast no pathology. Urine culture positive for E coli that was pansensitive. BUN 43, Creat 2.30 eGFT 25.12/19/2023: Renal US unremarkable Li Ramirez SPLITTING MACHINE OPERATOR, [address], [place], [address], [place] - [facility] - [place] & [place] 07/02/2024 15:00:11 OBGyn Episode No OBEpisode recorded.
--- OUTSIDE RECORDS SUMMARY | 2024-08-31 07:56 | XMS_ITS | Clinical Summary ---
Author Organization [facility] Address [address] [place] [address] Phone Care Team Providers Care Deputy Assessor Name Role Phone Campbell MAURO, Andrés Cabrera Unavailable [phone] BELLA MAURO, VINAY Fisher Unavailable [phone] Reason for Referral Date Encounter [...] ctive Last Documented On 2 12:57PM ; [facility] Plan of Treatment Patient was seen by myself Arthur Ramos PA-C. Patient will follow up as needed for now we will refer her to physical therapy if she plateaus and not happy with her progress she is to come back to see us. - Last Documented On 04/07/2022 7:43AM ; [facility] Fall Risk Assessment: This patient has [...] - Last Documented On 04/07/2022 7:43AM ; [facility] Pending Tests Order Diagnosis Results Due Ordering P rovider Therapy - Physical Therapy Lumbar 03/04/22 Cem Amado MD Last Documented On 2 7:43AM ; [facility] Instructions to patient Lose weight Last Documented On 2 1:42PM ; [facility], [facility] Assessments Includes: Assessments from this encounter Findings Left L4-5 decompression January 20, 2022 - Last Documented On 04/07/2022 7:43AM ; [facility], [facility] Instructions Includes: Instructions from this encounter Instructions to patient Lose weight Last Documented On 2 1:42PM ; [facility] Medical Equipment - Implanted Devices Includes: Current Devices No Medical Equipment Recorded Medications Includes: Medications discussed during this encounter and other current Medications Current Medications (continue as prescribed) Cephalexin 500 MG Oral Tablet 03/04/2022 Provider: Diagnosis: Last Documented On 2 1:43PM By Karma Dia ; [facility] Meloxicam 15 MG Oral Tablet 09/16/2021 Provider: VINAY BLANCO MD Diagnosis: Last Documented On 2 1:00PM By Nickie Max ; [facility] Pravastatin Sodium 40 MG Oral Tablet 09/06/2021 Prov ider: VINAY BLANCO MD Diagnosis: Last Documented On 2 1:00PM By Nickie Max ; [facility] traZODone HCl 50 MG Oral Tablet 08/24/2021 Provider: CHELSEY JUDGE Diagnosis: Last Documented On 2 1:00PM By Nickie Max ; [facility] Verapamil HCl 120 MG Oral Tablet 08/24/2021 Provider : CHELSEY JUDGE Diagnosis: Last Documented On 2 1:00PM By Nickie Max ; [facility] Fenofibrate 145 MG Oral Tablet 08/22/2021 Provider: VINAY BLANCO MD Diagnosis: Last Documented On 2 1:00PM By Nickie Max ; [facility] Synthroid 75 MCG Oral Tablet 08/22/2021 Provider: VINAY BLANCO MD Diagnosis: Last Documented On 2 1:00PM By Nickie Max ; [facility] Ursodiol 300 MG Oral Capsule 08/18/2021 Provider: CHELSEY JUDGE Diagnosis: Last Documented On 2 1:00PM By Nickie Max ; [facility] Past Medications on file Percocet 5-325 MG Oral Tablet 01/18/2022 - 02/02/2022 Provider: Cem Amado MD Diagnosis: 1 po q 4h prn pain Last Documented On 2 2:12PM By Cem Amado ; [facility] Medications Administered Includes: Administered Medications from this encounter No Administered Medications Recorded Vital Signs Includes: Vital Signs from this encounter Vital Name 03/04/2022 01:43P Blood Pressure Sitting (mmHg) 142/68 Pulse Rate-Sitting (bpm) 73 Height (in) 62 Weight (lb) 175 Body Mass Index (kg/m2) 32.0 Body Surface Area (m2) 1.8 Note: kns Last Documented: On 03/04/2022 1:46PM ; [facility] Results Includes: Results discussed during this [...] Documented On 2 1:42PM ; [facility] No tobacco use 12/20/2021 Last Documented On 2 1:42PM ; [facility] Not a smoker 12/03/2021 Last Documented On 2 1:42PM ; [facility] Caffeine use 09/21/2021 Last Documented On 2 1:42PM ; [facility] No recent change in diet 09/21/2021 Last Documented On 2 1:42PM ; [facility] Not a current smoker. 09/21/2021 Last Documented On 2 1:42PM ; [facility] Not exercising regularly 09/21/2021 Last Documented On 2 1:42PM ; [facility] Not using alcohol 09/21/2021 Last Documented On 2 1:42PM ; [facility] Not using drugs 09/21/2021 Last Documented On 2 1:42PM ; [facility] Never drank alcohol 09/21/2021 Last Documented On 2 1:42PM ; [facility] Never used drugs 09/21/2021 Last Documented On 2 1:42PM ; [facility] Non-smoker 09/21/2021 Last Documented On 2 1:42PM ; [facility], [facility] Smoking Status Unknown Procedures and Surgical History Includes: Procedures from this encounter Procedures Code Diagnosis Performing Provider Service L ocation Service Date use of tobacco assessment performed 1000F Last Documented On 2 1:42PM ; [facility], [facility] no influenza immunization patient refuse d Last Documented On 2 1:42PM ; [facility], [facility] patient screened for future fall risk 3288F Last Documented On 2 1:42PM ; [facility], [facility] patient screened for future fall risk: documentation of any fall with injury in past year 1100F Last Documented On 2 1:42PM ; [facility] follow-up visit in one month Last Documented On 2 7:43AM ; [facility] referral to physician Last Documented On 2 7:43AM ; [facility] an X-ray was performed 44690 Last Documented On 2 1:42PM ; [facility] Surgical History Last Updated History of heart surgery 09/21/2021 Last Documented On 2 1:42PM ; [facility] History of History of Gallbladder 2021 Last Documented On 2 1:42PM ; [facility], [facility] History of hysterectomy 09/21/2021 Last Documented On 2 1:42PM ; [facility], [facility] History of shoulder arthroplasty 022 Last Documented On 2 1:42PM ; [facility] Medical History Includes: Medical History addressed during this encounter Description Last Updated Past Surgical History: uteri n suspension ~breast biopsy ~bladder biopsy ~bladder and urethra stretch ~heart cath ~gastric bypass ~cateracts ~skin cancer ~Edge procedure 09/21/2021 Last Documented On 2 1:42PM ; [facility] History of asthma 09/21/2021 Last Documented On 2 1:42PM ; [facility] History of diverticulitis of colon 09/21 Last Documented On 2 1:42PM ; [facility] History of gastric ulcer 09/21/2021 Last Documented On 2 1:42PM ; [facility] History of heart disease 09/21/2021 Last Documented On 2 1:42PM ; [facility] History of History of Blood Clots 2021 Last Documented On 2 1:42PM ; [facility] History of History of Heart Attack / Str stephanie 09/21/2021 Last Documented On 2 1:42PM ; [facility] History of Hypertension 09/21/2021 Last Documented On 2 1:42PM ; [facility] History of Irregular Heartbeat 2 Last Documented On 2 1:42PM ; [facility] History of Kidney Disease 09/21/2021 Last Documented On 2 1:42PM ; [facility] History of Thyroid Disease 09/21/2021 Last Documented On 2 1:42PM ; [facility] No recent immunization for flu 2 Last Documented On 2 1:42PM ; [facility] No recent immunization for pneumococcal pneumonia 09/21/2021 Last Documented On 2 1:42PM ; [facility] Family History Includes: Family History addressed during this encounter Description Last Updated Diabetes mellitus 09/21/2021 Last Documented On 2 1:42PM ; [facility] Family history of cancer 09/21/2021 Last Documented On 2 1:42PM ; [facility] Family history of osteoporosis Last Documented On 2 1:42PM ; [facility] Family history of rheumatoid arthritis 0 09/21/2021 Last Documented On 2 1:42PM ; [facility] Family history of systemic hypertension 09/21/2021 Last Documented On 2 1:42PM ; [facility] Fraternal history of diabetes mellitus 0 09/21/2021 Last Documented On 2 1:42PM ; [facility] Fraternal history of family history of c ancer 09/21/2021 Last Documented On 2 1:42PM ; [facility] Fraternal history of family history of h eart disease 09/21/2021 Last Documented On 2 1:42PM ; [facility] Fraternal history of osteoporosis 2021 Last Documented On 2 1:42PM ; [facility] Fraternal history of systemic hypertensi on 09/21/2021 Last Documented On 2 1:42PM ; [facility] Maternal grandfather's history of family history of heart disease 09/21/2021 Last Documented On 2 1:42PM ; [facility] Maternal grandfather's history of system ic hypertension 09/21/2021 Last Documented On 2 1:42PM ; [facility] Maternal history of family history of he art disease 09/21/2021 Last Documented On 2 1:42PM ; [facility] Maternal history of osteoporosis 022 Last Documented On 2 1:42PM ; [facility] Maternal history of rheumatoid arthritis 09/21/2021 Last Documented On 2 1:42PM ; [facility] Maternal history of systemic hypertensio n 09/21/2021 Last Documented On 2 1:42PM ; [facility] Paternal grandfather's history of family history of heart disease 09/21/2021 Last Documented On 2 1:42PM ; [facility] Paternal history of family history of he art disease 09/21/2021 Last Documented On 2 1:42PM ; [facility] Paternal history of systemic hypertensio n 09/21/2021 Last Documented On 2 1:42PM ; [facility] Sororal history of diabetes mellitus Last Documented On 2 1:42PM ; [facility] Sororal history of family history of can cer 09/21/2021 Last Documented On 2 1:42PM ; [facility] Sororal history of family history of hea rt disease 09/21/2021 Last Documented On 2 1:42PM ; [facility] Sororal history of systemic hypertension 09/21/2021 Last Documented On 2 1:42PM ; [facility] Review of Systems Includes: Review of Systems [...] Active Last Documented On 2 1:42PM ; [facility] Sulfa Antibiotics Allergy 09/21/2021 A ctive Last Documented On 2 1:42PM ; [facility] penicillAMINE Allergy 09/21/2021 Activ e Last Documented On 2 1:42PM ; [facility] [place] Allergy 09/21/2021 Active Last Documented On 2 1:42PM ; [facility] Latex Allergy 09/21/2021 Active Last Documented On 2 1:42PM ; [facility] Erythromycin Allergy 09/21/2021 Active Last Documented On 2 1:42PM ; [facility] Cortisone Shots Allergy 09/21/2021 Act ron Last Documented On 2 1:42PM ; [facility] Claritin Allergy 09/21/2021 Active Last Documented On 2 1:42PM ; [facility] Ciprofloxacin Allergy 09/21/2021 Activ e Last Documented On 2 1:42PM ; [facility] Atenolol Allergy 09/21/2021 Active Last Documented On 2 1:42PM ; [facility] Encounters Encounter Provider Location Date Check-In Time Check- Out Time Diagnosis Post Op Cem Amado MD [facility] 2 1:24PM 2:07PM Insurance Includes: Active Insurance Policies Plan Name Member ID Group # Subscriber Relationship Effect ron Dates 1 - [facility] /MEDICARE [id number] Dianne Mcneal Self 05/02/2021 - Unknown Clinical Notes Includes: Clinical Notes from this encounter No Clinical Notes Recorded
--- OUTSIDE RECORDS SUMMARY | 2024-08-31 07:56 | XMS_ITS | Clinical Summary ---
Author Organization [facility] Address [address] [place] [address] Phone Care Team Providers Care Oak Tanner Name Role Phone Campbell MAURO, Andrés Cabrera Unavailable [phone] BELLA MAURO, VINAY Fisher Unavailable [phone] Reason for Referral Date Encounter [...] A ctive Last Documented On 12:57PM ; [facility] Plan of Treatment Patient was [...] - Last Documented On 04/08/2022 6:50AM ; [facility] Fall Risk Assessment: This patient [...] - Last Documented On 04/08/2022 6:50AM ; [facility] Instructions to patient Lose weight Last Documented On 2 11:05AM ; [facility] Assessments Includes: Assessments from this encounter Findings Left L4-5 decompression - Last Documented On 04/08/2022 6:50AM ; [facility] fluid collection that developed post surgery - Last Documented On 04/08/2022 6:50AM ; [facility] Instructions Includes: Instructions from this encounter Instructions to patient Lose weight Last Documented On 2 11:05AM ; [facility] Medical Equipment - Implanted Devices Includes: Current Devices No Medical Equipment Recorded Medications Includes: Medications discussed during this encounter and other current Medications Discontinued / Stopped on this date CHELSEY JUDGE on 09/04/2021 hydroCHLOROthiazide 25 MG Oral Tablet Pro vider: CHELSEY JUDGE Diagnosis: Last Documented On 11:08AM By Karma Dia ; [facility] Current Medications (continue as prescribed) Cephalexin 500 MG Oral Tablet 03/04/2022 Provider: Diagnosis: Last Documented On 2 1:43PM By Karma Dia ; [facility] Meloxicam 15 MG Oral Tablet 09/16/2021 Provider: VINAY BLANCO MD Diagnosis: Last Documented On 2 1:00PM By Nickie Max ; [facility] Pravastatin Sodium 40 MG Oral Tablet 09/06/2021 Prov ider: VINAY BLANCO MD Diagnosis: Last Documented On 2 1:00PM By Nickie Max ; [facility] traZODone HCl 50 MG Oral Tablet 08/24/2021 Provider: CHELSEY JUDGE Diagnosis: Last Documented On 2 1:00PM By Nickie Max ; [facility] Verapamil HCl 120 MG Oral Tablet 08/24/2021 Provider : CHELSEY JUDGE Diagnosis: Last Documented On 2 1:00PM By Nickie Max ; [facility] Fenofibrate 145 MG Oral Tablet 08/22/2021 Provider: VINAY BLANCO MD Diagnosis: Last Documented On 2 1:00PM By Nickie Max ; [facility] Synthroid 75 MCG Oral Tablet 08/22/2021 Provider: VINAY BLANCO MD Diagnosis: Last Documented On 2 1:00PM By Nickie Max ; [facility] Ursodiol 300 MG Oral Capsule 08/18/2021 Provider: CHELSEY JUDGE Diagnosis: Last Documented On 2 1:00PM By Nickie Max ; [facility] Past Medications on file Percocet 5-325 MG Oral Tablet 01/18/2022 - 02/02/2022 Provider: Cem Amado MD Diagnosis: 1 po q 4h prn pain Last Documented On 2 2:12PM By Cem Amado ; [facility] Medications Administered Includes: Administered Medications from this encounter No Administered Medications Recorded Vital Signs Includes: Vital Signs from this encounter Vital Name 02/18/2022 11:05A Blood Pressure Sitting (mmHg) 147/70 Pulse Rate-Sitting (bpm) 72 Height (in) 62 Weight (lb) 175 Body Mass Index (kg/m2) 32.0 Body Surface Area (m2) 1.8 Note: kns Last Documented: On 02/18/2022 11:07A M ; [facility] Results Includes: Results discussed [...] 04/16/2022 Last Documented On 2 11:05AM ; [facility] No tobacco use 12/20/2021 Last Documented On 2 11:05AM ; [facility] Not a smoker 12/03/2021 Last Documented On 2 11:05AM ; [facility] Caffeine use 09/21/2021 Last Documented On 2 11:05AM ; [facility] No recent change in diet 09/21/2021 Last Documented On 2 11:05AM ; [facility] Not a current smoker. 09/21/2021 Last Documented On 2 11:05AM ; [facility] Not exercising regularly 09/21/2021 Last Documented On 2 11:05AM ; [facility] Not using alcohol 09/21/2021 Last Documented On 2 11:05AM ; [facility] Not using drugs 09/21/2021 Last Documented On 2 11:05AM ; [facility] Former smoker 09/21/2021 Last Documented On 2 11:05AM ; [facility] Never drank alcohol 09/21/2021 Last Documented On 2 11:05AM ; [facility] Never used drugs 09/21/2021 Last Documented On 2 11:05AM ; [facility] Non-smoker 09/21/2021 Last Documented On 2 11:05AM ; [facility] Smoking Status Unknown Procedures and Surgical History Includes: Procedures from this encounter Procedures Code Diagnosis Performing Provider Service L ocation Service Date use of tobacco assessment performed 1000F Last Documented On 2 11:05AM ; [facility] no influenza immunization patient refuse d Last Documented On 2 11:05AM ; [facility] patient screened for future fall risk 3288F Last Documented On 2 11:05AM ; [facility] patient screened for future fall risk: documentation of any fall with injury in past year 1100F Last Documented On 2 11:05AM ; [facility] follow-up visit in one month Last Documented On 2 6:50AM ; [facility] referral to physician Last Documented On 2 6:50AM ; [facility] an X-ray was performed 77431 Last Documented On 2 11:05AM ; [facility] Surgical History Last Updated History of heart surgery 09/21/2021 Last Documented On 2 11:05AM ; [facility] History of History of Gallbladder 2021 Last Documented On 2 11:05AM ; [facility] History of hysterectomy 09/21/2021 Last Documented On 2 11:05AM ; [facility] History of shoulder arthroplasty 022 Last Documented On 2 11:05AM ; [facility] Medical History Includes: Medical History addressed during this encounter Description Last Updated Past Surgical History: uteri n suspension ~breast biopsy ~bladder biopsy ~bladder and urethra stretch ~heart cath ~gastric bypass ~cateracts ~skin cancer ~Edge procedure 09/21/2021 Last Documented On 2 11:05AM ; [facility] History of asthma 09/21/2021 Last Documented On 2 11:05AM ; [facility] History of diverticulitis of colon 09/21 Last Documented On 2 11:05AM ; [facility] History of gastric ulcer 09/21/2021 Last Documented On 2 11:05AM ; [facility] History of heart disease 09/21/2021 Last Documented On 2 11:05AM ; [facility] History of History of Blood Clots 2021 Last Documented On 2 11:05AM ; [facility] History of History of Heart Attack / Str stephanie 09/21/2021 Last Documented On 2 11:05AM ; [facility] History of Hypertension 09/21/2021 Last Documented On 2 11:05AM ; [facility] History of Irregular Heartbeat 2 Last Documented On 2 11:05AM ; [facility] History of Kidney Disease 09/21/2021 Last Documented On 2 11:05AM ; [facility] History of Thyroid Disease 09/21/2021 Last Documented On 2 11:05AM ; [facility] No recent immunization for flu 2 Last Documented On 2 11:05AM ; [facility] No recent immunization for pneumococcal pneumonia 09/21/2021 Last Documented On 2 11:05AM ; [facility] Family History Includes: Family History addressed during this encounter Description Last Updated Diabetes mellitus 09/21/2021 Last Documented On 2 11:05AM ; [facility] Family history of cancer 09/21/2021 Last Documented On 2 11:05AM ; [facility] Family history of osteoporosis 2 Last Documented On 2 11:05AM ; [facility] Family history of rheumatoid arthritis 0 09/21/2021 Last Documented On 2 11:05AM ; [facility] Family history of systemic hypertension 09/21/2021 Last Documented On 2 11:05AM ; [facility] Fraternal history of diabetes mellitus 0 09/21/2021 Last Documented On 2 11:05AM ; [facility] Fraternal history of family history of c ancer 09/21/2021 Last Documented On 2 11:05AM ; [facility] Fraternal history of family history of h eart disease 09/21/2021 Last Documented On 2 11:05AM ; [facility] Fraternal history of osteoporosis 2021 Last Documented On 2 11:05AM ; [facility] Fraternal history of systemic hypertensi on 09/21/2021 Last Documented On 2 11:05AM ; [facility] Maternal grandfather's history of family history of heart disease 09/21/2021 Last Documented On 2 11:05AM ; [facility] Maternal grandfather's history of system ic hypertension 09/21/2021 Last Documented On 2 11:05AM ; [facility] Maternal history of family history of he art disease 09/21/2021 Last Documented On 2 11:05AM ; [facility] Maternal history of osteoporosis 022 Last Documented On 2 11:05AM ; [facility] Maternal history of rheumatoid arthritis 09/21/2021 Last Documented On 2 11:05AM ; [facility] Maternal history of systemic hypertensio n 09/21/2021 Last Documented On 2 11:05AM ; [facility] Paternal grandfather's history of family history of heart disease 09/21/2021 Last Documented On 2 11:05AM ; [facility] Paternal history of family history of he art disease 09/21/2021 Last Documented On 2 11:05AM ; [facility] Paternal history of systemic hypertensio n 09/21/2021 Last Documented On 2 11:05AM ; [facility] Sororal history of diabetes mellitus Last Documented On 2 11:05AM ; [facility] Sororal history of family history of can cer 09/21/2021 Last Documented On 2 11:05AM ; [facility] Sororal history of family history of hea rt disease 09/21/2021 Last Documented On 2 11:05AM ; [facility] Sororal history of systemic hypertension 09/21/2021 Last Documented On 2 11:05AM ; [facility] Review of Systems Includes: Review of Systems [...] Active Last Documented On 2 1:42PM ; [facility] Sulfa Antibiotics Allergy 09/21/2021 A ctive Last Documented On 2 1:42PM ; [facility] penicillAMINE Allergy 09/21/2021 Activ e Last Documented On 2 1:42PM ; [facility] Lompoc Allergy 09/21/2021 Active Last Documented On 2 1:42PM ; [facility] Latex Allergy 09/21/2021 Active Last Documented On 2 1:42PM ; [facility] Erythromycin Allergy 09/21/2021 Active Last Documented On 2 1:42PM ; [facility] Cortisone Shots Allergy 09/21/2021 Act ron Last Documented On 2 1:42PM ; [facility] Claritin Allergy 09/21/2021 Active Last Documented On 2 1:42PM ; [facility] Ciprofloxacin Allergy 09/21/2021 Activ e Last Documented On 2 1:42PM ; [facility] Atenolol Allergy 09/21/2021 Active Last Documented On 2 1:42PM ; [facility] Encounters Encounter Provider Location Date Check-In Time Check- Out Time Diagnosis Post Op Cem Amado MD [facility] 2 10:33AM 11:42AM Insurance Includes: Active Insurance Policies Plan Name Member ID Group # Subscriber Relationship Effect ron Dates 1 - [facility] /MEDICARE [id number] Dianne Mcneal Self 05/02/2021 - Unknown Clinical Notes Includes: Clinical Notes from this encounter No Clinical Notes Recorded
--- OUTSIDE RECORDS SUMMARY | 2024-08-31 07:56 | XMS_ITS | Continuity of Care Document ---
Author Organization [facility] [place] [facility] [place] Address [address] [facility] [address] [place] [address] Assessment Encounter Date Assessment Date Assessment LastModified by Organization Details LastModified Time 07/16/2024 07/16/2024 MS. 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 Referral vascular surgeon [facility] Matthew Ruiz MD, [address], [place], [address], 08/14/2024 08:59:27 Procedures None recorded. Surgeries None recorded. Imaging None recorded. Medication Orders None recorded. Patient TargetsNo targets recorded. Patient InstructionsNo instructions recorded. Reason for Referral Vascular Surgeon Referral fo r Stenosis of celiac artery Referring Physician: Tere Pavon, Gastroenterology, Encounter Date: 07/16/2024 Results Created Date Observation Date Name Description Value Unit Range Abnormal Flag Note LastModifiedBy Organization Detail LastModifiedTime 06/22/1906/22/2024 CT, abdom en, w/wo contr ast No observ ation record ed. [facility] [address], [place], [address], 06/26/2024 13:49:05 Result Notes None recorded. Problems Name Problem SNOMED Code Status Onset Date Resolution Date Notes Provider Name and Address Organization Details Recorded Time Asthma 136312407 Active 2022 Paulareli Thompson null, [place] - [facility] [place] [facility] [place] 3 09:36:31 Heart disease 42201620 Active 2022 Richard Jay null, [place] - [facility] [place] 3 09:36:39 Acid reflux 728690586 Active 2022 Richard Jay null, [place] - [facility] [place] 3 09:36:49 Irritable bowel syndrome 66999409 Active 2022 Richard Jay null, [place] - [facility] [place] 3 09:37:01 Diverticulitis 827759600 Active 2022 Richard Thompson null, [place] - [facility] - [place] [facility] [place] 3 09:37:10 Chronic interstitial cystitis 533591000 Active 2022 Richard Thompson null, [place] - [facility] [place] 3 09:37:17 Renal failure syndrome 66323916 Active 2022 FANY Hallman - [facility] [place] [facility] [place] 09:37:29 Chronic urinary tract infection 365569603 Active 2022 FANY Hallman [facility] [place] [facility] [place] 09:37:38 Problem Notes None recorded. Procedures Surgical History Date Name Laterality Status Provider Name and Address Organization Details Recorded Time 01/17/20 24 Procedure Note completed Fernanda Humphries [facility] [place] [facility] [place] 01/17/2024 13:13:55 interposition operation for uterine suspension completed Richard Humphries [facility] [place] [facility] [place] 08/11/2022 09:38:56 Total Hysterectomy completed Ra Humphries [facility] & [place] 08/11/2022 09:39:03 biopsy of breast completed Richard Humphries [facility] & [place] 08/11/2022 09:41:12 biopsy of urinary bladder completed Richard Humphries [facility] & [place] 08/11/2022 09:41:26 cardiac catheterization completed Richard Humphries [facility] & [place] 08/11/2022 09:41:51 cholecystectomy completed Richard Humphries [facility] [place] [facility] [place] 08/11/2022 09:42:02 Gastric bypass for obesity completed Richard Humphries [facility] & [place] 08/11/2022 09:42:14 Cataract Surgery completed Richard Humphries [facility] & [place] 08/11/2022 09:42:21 excision of basal cell carcinoma completed Richard Humphries [facility] & [place] 08/11/2022 09:43:18 procedure on back completed Richard Humphries [facility] [place] [facility] [place] 08/11/2022 09:43:35 Imaging Results None recorded. Procedure Notes None recorded. Medical Equipment None Reported. Allergies Allergen ID Allergen Name Allergen Category Reaction Reaction Severity Criticality Documentation Date Start Date Code Code System Note Provider Name and Address Organization Details Recorded Time 01588 Tylenol with Codeine medicatio n Not available Not available Not available 08/11/2022 75164 6 RxNorm FANY Hallman - [facility] [place] [facility] [place] 3 09:30:52 86506 Product containin g penicilli n (product) medicatio n Not available Not available Not available 08/11/2022 92394 8001 SNOMED FANY Hallman [facility] & [place] 3 09:31:07 43145 Substance with sulfonami de structure and antibacte rial mechanism of action (substanc e) medicatio n Not available Not available Not available 08/11/2022 53257 8003 SNOMED FANY Hallman [facility] [place] [facility] [place] 3 09:31:16 88855 atenolol medicatio n Not available Not available Not available 08/11/2022 1202 RxNorm FANY Hallman - [facility] & [place] 3 09:31:22 01794 cortisone medicatio n Not available Not available Not available 08/11/2022 2878 RxNorm FANY Hallman - [facility] & [place] 3 09:31:30 63980 Cipro medicatio n Not available Not available Not available 08/11/2022 24610 3 RxNorm FANY Hallman - [facility] [place] [facility] [place] 3 09:31:35 57110 Claritin- D medicatio n Not available Not available Not available 08/11/2022 92106 UNK FANY aHllman - [facility] - [place] [facility] [place] 3 09:31:43 52578 acetamino phen / hydrocodo ne medicatio n Not available Not available Not available 08/11/2022 02996 2 RxNorm FANY Hallman - [facility] [place] [facility] [place] 3 09:31:49 81940 erythromy mahsa medicatio n Not available Not available Not available 08/11/2022 4053 RxNorm FANY Hallman - [facility] [place] [facility] [place] 3 09:31:59 62678 latex environme nt,medica tion Not available Not available Not available 08/11/2022 83753 91 RxNorm Richard Thompson [place], [place] - [facility] - [place] [facility] [place] 3 09:32:07 Medications Name Sig Start Date [...] completed Not Available Not Available Not Available [place] Saline 0.65 % nasal spray aerosol ADMINIST [...] Organization Details Last Updated DateTime 157.48 cm 35.8 kg/m2 23456.1 g 97.7 [degF] 95 % 95 % 87 /min 147 mm[Hg] 62 mm[Hg] Jhonny guzman [facility] [place] 14:07:42 Social History Question Answer Notes LastModified by Organizat ion Details LastModified Time Tobacco Smoking Status [facility]oker [facility] [place] 08/11/2022 09:38:39 What Is Your Level Of Alcohol Consumption? None Information not available 08/11/2022 Sex: Unknown Functional Status None recorded. Mental Status None recorded. Family History Relationship Description Onset Age of this Age Resolved Age Notes LastModified by Organization Details LastModified Time Brother Heart disease dec [email or web address] Not available 2022 09:38:11 Father Heart disease dec [email or web address] Not available 2022 09:38:11 Mother Heart disease dec [email or web address] Not available 2022 09:38:11 Sister Fall dec [email or web address] Not available 08/11/2022 09:38:23 Medical History No medical history recorded. Gynecological HistoryNo gynecological history recorded. Obstetrics History GPAL:G 0 P 0 0 0 0 Past Encounters Encounter ID Performer Location Encounter Start Date Encounter Closed Date Diagnosis/Indication Diagnosis SNOMED-CT Code Diagnosis ICD10 Code Diagnosis Note [id number] Li Ramirez NP, [facility] [place] [address] 07/02/2024 13:38:52 07/02/2024 14:57:03 Chronic urinary tract infection 152460145 N39.0 UA negativeCo ntinue Met[place]amin e 1 gram bidContinu e Estrace creamRTC in 3 months for f/u Nocturia 469329870 R35.1 [id number] TERE PAVON NP [facility] [address] [facility] [address] [place] [address] 07/16/2024 13:55:09 07/16/2024 14:53:16 History of pancreatitis 3301045686 9107 Z87.19 Early satiety 672772164 R68.81 Nausea 004266020 R11.0 Abdominal pain 61909826 R10.9 Chronic id iopathic constipation 84949007 K59.04 Steatotic liver disease 304351883 K76.0 Exocrine p ancreatic insufficiency 90502754 K86.81 Slow trans it constipation 27228059 K59.01 Stenosis o f celiac artery 8587595384 3732831 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 Health Concerns Section Related Observation LastModified by Organization Detai ls LastModified Time None Recorded Concern Status LastModified by Organization Details LastModified Time None Recorded Payers Encounter Date Sequence Insurance Name Policy Number Policy Graves Covered Member ID Graves Member ID Guarantor Name 07/16/2024 1 [facility] (MEDICARE REPLACEMENT/A DVANTAGE - PPO) [id number] Dianne Mcneal [id number] Dianne Mcneal Notes Date Note Type Note Provider Name and Address Organization Details Recorded Time 5 text/html Dianne Mcneal is a 83-year-old [...] she was seen by CT surgery at [facility] for 99% celiac artery stenosis and [...] in about 2 years. 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 [...] what imaging they feel is needed. TERE PAVON, [place] [address], [place], [address], [facility] [place] [facility] [place] 07/16/2024 23:50:51 OBGyn Episode No OBEpisode recorded.
--- OUTSIDE RECORDS SUMMARY | 2024-08-31 07:56 | XMS_ITS | Clinical Summary ---
Author Organization [facility] , [facility] Address [address] [place] [address] Phone Care Team Providers Care Tread Cutter Name Role Phone Campbell MAURO, Andrés Cabrera Unavailable [phone] BELLA MAURO, VINAY Fisher Unavailable [phone] Reason for Visit and Chief Complaint [facility] Problems Includes: Problems addressed during this encounter and other active Problems All Visits Onset Date Resolved Date Provider Condition S tatus Lower Back Pain 09/21/2021 Arthur Ramos PA-C A ctive Last Documented On 2 12:57PM ; [facility], [facility] Plan of Treatment No Plan of Treatment Recorded Assessments Includes: Assessments from this encounter No Assessments Recorded Medical Equipment - Implanted Devices Includes: Current Devices No Medical Equipment Recorded Medications Includes: Medications discussed during this encounter and other current Medications Current Medications (continue as prescribed) Cephalexin 500 MG Oral Tablet 03/04/2022 Provider: Diagnosis: Last Documented On 2 1:43PM By Karma Dia ; [facility], [facility] Meloxicam 15 MG Oral Tablet 09/16/2021 Provider: VINAY BLANCO MD Diagnosis: Last Documented On 2 1:00PM By Nickie Swanson [facility], [facility] Pravastatin Sodium 40 MG Oral Tablet 09/06/2021 Prov ider: VINAY BLANCO MD Diagnosis: Last Documented On 2 1:00PM By Nickie Max ; [facility], [facility] traZODone HCl 50 MG Oral Tablet 08/24/2021 Provider: CHELSEY JUDGE Diagnosis: Last Documented On 2 1:00PM By Nickie Max ; [facility], [facility] Verapamil HCl 120 MG Oral Tablet 08/24/2021 Provider : CHELSEY JUDGE Diagnosis: Last Documented On 2 1:00PM By Nickie Max ; [facility], [facility] Fenofibrate 145 MG Oral Tablet 08/22/2021 Provider: VINAY BLANCO MD Diagnosis: Last Documented On 2 1:00PM By Nickie Max ; [facility], [facility] Synthroid 75 MCG Oral Tablet 08/22/2021 Provider: VINAY BLANCO MD Diagnosis: Last Documented On 2 1:00PM By Nickie Max ; [facility], [facility] Ursodiol 300 MG Oral Capsule 08/18/2021 Provider: CHELSEY JUDGE Diagnosis: Last Documented On 2 1:00PM By Nickie Max ; [facility], [facility] Medications Administered Includes: Administered Medications from this [...] Active Last Documented On 2 1:42PM ; [facility], [facility] Sulfa Antibiotics Allergy 09/21/2021 A ctive Last Documented On 2 1:42PM ; [facility] penicillAMINE Allergy 09/21/2021 Activ e Last Documented On 2 1:42PM ; [facility] [place] Allergy 09/21/2021 Active Last Documented On 2 1:42PM ; [facility] Latex Allergy 09/21/2021 Active Last Documented On 2 1:42PM ; [facility] Erythromycin Allergy 09/21/2021 Active Last [...] Active Last Documented On 2 1:42PM ; [facility] Encounters Encounter Provider Location Date Check-In Time Check-Out Time Diagnosis [facility] Cem Amado MD Surgery 2 01/21/2022 10:26AM 11:59PM Insurance Includes: Active Insurance Policies Plan Name Member ID Group # Subscriber Relationship Effect ron Dates 1 - [facility] /MEDICARE [id number] Dianne Mcneal Self 05/02/2021 - Unknown Clinical Notes Includes: Clinical Notes from this encounter No Clinical Notes Recorded
--- NOTE | 2024-08-31 08:23 | CA_ITS ---
FINAL REPORT TECHNIQUE: Multiple transverse and longitudinal images were performed of the right femoral-popliteal deep venous system with augmentation and compression maneuvers. CLINICAL HISTORY: right leg pain FINDINGS: Right lower extremity duplex ultrasound demonstrates normal flow in the deep venous system. There is no abnormal echogenicity to suggest thrombus. There is normal compression and augmentation. IMPRESSION: No evidence of right DVT. Reviewed, Interpreted and Dictated by Keron Velasquez MD Transcribed by Yolanda Moura Authenticated and [facility]
--- NOTE | 2024-08-31 08:49 | CA_ITS ---
APPROVED REPORT EXAM: Comprehensive 2D, Doppler, and color-flow Echocardiogram Chief Solution Architect: Marcela Alfaro RDCS Ht: 5 ft 2 in Wt: 200lbs BSA: 1.91 BP: 139/68 mmHg Indications: LV FXN,CAD,HTN,HLP,VÁZQUEZ TDS SECONDARY TO BODY HABITUS LIMITED STUDY M-Mode Dimensions RVDd 2.85 cm (0.9-2.6) LA Diam 4.30 cm (1.9-4.0) LVDd 6.05 cm (3.5-5.7) LVDs 4.81 cm (3.5-5.7) IVSd 0.60 cm (0.6-1.1) PWd 0.77 cm (0.6-1.1) EF (Teich) 41.10% FS 20.50% EDV (Teich) 183.40 mL ESV (Teich) 108.00 mL LV Diastology E Decel Time 333 (160-240 msec) E/A Ratio 0.7 Aortic Valve ELIANA Index 1.02 cm2/m2 AoV Peak Dean. 158.0 (50-130 cm/s) AO Peak GR. 10.00 mmHg AO Mean GR. 4.90 (<5 mmHg) AO VTI 29.6 (18-25 cm) LEIANA (VTI) 2.00 (2.5-4.5 cm2) Mitral Valve MV E Max Dean. 70.0 (40-130 cm/s) MV A Velocity 99.0 (40-130 cm/s) E/A Ratio 0.71 MV PHT 98.0 ms Left Ventricle The left ventricle is normal size. The left ventricular systolic function is normal. The left ventricular ejection fraction is within the normal range. There is increased LV wall thickness. There is normal LV segmental wall motion. Diastolic function is indeterminate. LVEF is 55%. Right Ventricle The right ventricle is mildly dilated. The right ventricular systolic function is normal. Atria Left atrium is mildly dilated. The right atrium is not well-visualized. Aortic Valve Aortic valve is mildly thickened. There is no aortic valvular stenosis. No aortic regurgitation is present. Mitral Valve The mitral valve is normal in structure. No evidence of mitral valve stenosis. There is no mitral valve regurgitation noted. Tricuspid Valve Tricuspid valve is grossly normal in structure and function. Trace tricuspid regurgitation. There is insufficient TR jet to estimate RVSP. Trace pulmonic regurgitation. Pulmonic Valve The pulmonic valve is not well-visualized. Great Vessels Aortic root is not well-visualized. IVC is normal in size and collapses >50% with inspiration. Pericardium There is no pericardial effusion. Other Information Study Quality: Technically Difficult Conclusion Technically difficult study due to poor acoustic windows. Normal biventricular systolic function. Mild RV dilation. Mild LA dilation. No significant valvular stenosis or regurgitation in the visualized valves. Electronically signed by : Rocio Hale MD 09/03/2024 14:18:33
[2024-08-31 08:54] LABS: Blood Urea Nitrogen 67 mg/dl (7-17); Estimated Glomerular Filt Rate 16 ml/min (>60); GFR (African American) 20 ML/MIN (>60)
== END 2024-08-31 23:59 | disposition home or self-care (01) ==
LOC: RAD 07:53
PROVIDERS: PCP Nurse Practitioner Family; Visit Provider Physician Assistant
DX: I25.10 Atherosclerotic heart disease of native coronary artery without angina pectoris (principal); R10.9 Unspecified abdominal pain; R60.0 Localized edema
CPT/HCPCS: 36415; 82565; 84520; 93306; 93971

== ENCOUNTER 2024-09-03 09:08 | Outpatient (CLI) | payer MEDICARE, SELFPAY ==
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
[2024-09-03 09:40] LABS: Hematocrit 30.5 % (37.0-47.0); Hemoglobin 9.3 g/dL (12.2-16.2); Mean Corpuscular HGB Conc 30.5 g/dL (31.8-35.4); Mean Corpuscular Hemoglobin 25.5 pg (27.0-31.2); Mean Corpuscular Volume 83.8 fl (81-99); Nucleated Red Blood Cells # 0 10^3/uL; Nucleated Red Blood Cells % 0 %; Platelet Count 372 K/mm3 (142-424); Red Blood Count 3.64 M/mm3 (4.20-5.40); Red Cell Distribution Width 16.3 % (11.5-17.5); Red Cell Distribution Width-SD 50.4 fL; White Blood Count 10.2 K/mm3 (4.8-10.8)
[2024-09-03 10:05] LABS: Albumin Level 4.1 g/dl (3.5-5.0); Anion Gap 11.7 mEq/L (5-15); Blood Urea Nitrogen 58 mg/dl (7-17); Calcium 9.5 mg/dl (8.4-10.2); Carbon Dioxide 22 mmol/L (22.0-30.0); Chloride 104 mmol/L (98-107); Chol/HDL Ratio 1.9 (1-3.5); Cholesterol 132 mg/dl (140-200); Estimated Glomerular Filt Rate 20 ml/min (>60); GFR (African American) 25 ML/MIN (>60); Glucose 99 mg/dl (74-100); HDL Cholesterol 71 mg/dl (40-60); Phosphorous 3.5 mg/dl (2.5-4.5); Potassium 4.7 mmoL/L (3.5-5.1); Sodium 133 mmol/L (136-145); Triglycerides 177 mg/dl (30-150); VLDL Cholesterol 35 mg/dL (0-40)
[2024-09-03 10:16] LABS: Direct LDL Cholesterol 33.62 mg/dL (100-129); Intact Parathyroid Hormone 38.8 pg/mL (7.5-53.5)
[2024-09-06 14:11] LABS: Tandem-R Ostase 10.3 ug/L (.)
[2024-09-07 20:13] LABS: C-Telopeptide Serum 748 pg/mL (.)
== END 2024-09-03 23:59 | disposition home or self-care (01) ==
LOC: LAB 09:08
PROVIDERS: PCP Nurse Practitioner Family; Visit Provider Internal Medicine Nephrology
DX: N18.4 Chronic kidney disease, stage 4 (severe) (principal); E78.5 Hyperlipidemia, unspecified; M81.0 Age-related osteoporosis without current pathological fracture
CPT/HCPCS: 36415; 80061; 80069; 82523; 83970; 84080; 85027

== ENCOUNTER 2024-09-11 08:10 | Day surgery (SDC) | payer MEDICARE, SELFPAY ==
[2024-09-11 08:20] VITALS: BP 174/62; PULSE 82; RESP 16; TEMP 36.9; O2SAT 99; BMI 36.2
[2024-09-11 08:58] VITALS: BP 152/64; PULSE 87; RESP 18; O2SAT 97
[2024-09-11 09:00] VITALS: BP 152/64; PULSE 87; RESP 18; O2SAT 97
--- NOTE | 2024-09-11 09:06 | EXP.PAIN.PRO ---
Procedure Date: 09/11/24 Time: 08:30 Anesthesiologist:: Rick Leach CRNA Complications:: None Pre-procedure Diagnosis:: Degenerative disc lumbar spine multilevels. Lumbar radiculopathy. Lumbar postlaminectomy syndrome. Lumbar spondylosis. Post-procedure Diagnosis:: Same. Indications for Procedure:: Patient is a very pleasant 83-year-old female that comes our clinic today for intrathecal pain pump interrogation refill. Patient currently being managed with morphine sulfate 1 mg/mL at a rate of 0.1533 mg/day. She is reporting low lumbar back pain. However, her main complaint is bilateral leg radicular symptoms. She reports intense sciatic nerve pain bilaterally. She rates her pain 7/10. I discussed increase in the intrathecal pain pump rate today. She wishes to proceed. Patient is awake alert Brooks x 3. No acute distress. Flexion-extension lumbar spine somewhat guarded secondary to pain. Deep tendon reflexes upper lower extremities normal. Motor strength upper and lower extremities normal. There is no gross sensory deficit. Gait is antalgic. Patient requires a rollator for stability. Procedure Details:: Details of the procedure explained to the patient. The patient taken procedure and placed in the sitting position. The area over the pump was cleansed using chlorhexidine as a cleansing solution. The pump was accessed with ease using a 22-gauge inch and half needle. 6.5 mL of solution was withdrawn and discarded appropriately. The pump was then filled with morphine sulfate 1 mg/mL 20 cc. The pump rate will be increased by 10%. The new rate will be 0.1689 mg/day. Patient tolerated procedure without difficulty. There are no complications. Plan and Disposition:: Patient was discharged without incident.
[2024-09-11 09:24] VITALS: BP 164/78; PULSE 79; RESP 16; O2SAT 98
== END 2024-09-11 09:14 | disposition home or self-care (01) ==
PROVIDERS: PCP Nurse Practitioner Family; Visit Provider Nurse Anesthetist, Certified Registered
DX: M51.16 Intervertebral disc disorders with radiculopathy, lumbar region (principal); M96.1 Postlaminectomy syndrome, not elsewhere classified; M47.26 Other spondylosis with radiculopathy, lumbar region
CPT/HCPCS: 62370

== ENCOUNTER 2024-10-21 20:45 | Observation (INO) | payer MEDICARE, SELFPAY ==
--- OUTSIDE RECORDS SUMMARY | 2024-09-13 08:00 | XMS_ITS | Encounter Summary ---
Author Organization [facility] Address [address] [place] [address] Care Team Providers Care Social Media Executive Name Role Phone Anton Butts MD Primary Care Provider [phone] Reason for Visit * Reason Comments Follow-up Encounter Details Date Type Department Care Team ([facility] st Contact Info) Description 09/13/2024 8:00 AM EDT Office Visit Professional [employer] [facility] [place] [facility] [address], [address] [place] [address] Rusty Hylton MD [address] [place] [address] CKD (chronic kidney disease) stage 4, GFR 15-29 ml/min ([facility]/HCC) (Primary Dx); Age-related osteoporosis without current pathological fracture; Essential hypertension Social History Tobacco Use Types Packs/Day Years Used Date Smoking Tobacco: Former Cigarettes 1 35.6 0 01/20/1956 - 09/14/1991 Passive Smoke Exposure: Past Smokeless Tobacco: Never Alcohol Use Standard Drinks/Week Comments No 0 (1 standard drink = 0.6 oz pur e alcohol) PHQ-2 Answer Date Recorded Patient Health Questionnaire-2 Score 0 09/13/2024 PHQ-9 Answer Date Recorded Patient Health Questionnaire-9 Score 0 09/13/2024 PHQ-2A Answer Date Recorded Depression Risk 0 01/05/2024 Comments Unknown Sex and Gender Information Value Date Recorded Sex Assigned at Not on file Legal Sex Female 7:40 PM EDT Gender Identity Not on file Sexual Orientation Not on file documented as of this encounter Last Filed Vital Signs Vital Sign Reading Time Taken Comments Blood Pressure - - Pulse - - Temperature - - Respiratory Rate - - Oxygen Saturation - - Inhaled Oxygen Concentration - - Weight 89.8 kg (198 lb) 09/13/2024 7:32 AM EDT Height 157.5 cm (5' 2 ) 09/13/2024 7:32 AM EDT Body Mass Index 36.21 09/13/2024 7:32 AM EDT documented in this encounter Functional Status * Over the past 2 weeks, how often have you been bothered by any of the following problems? Question Answer Date of Assessment Author Little interest or pleasure in doing things Not at all 09/13/2024 7:37 AM EDT Magdalene Dash LPN Feeling down, depressed, or hopeless Not at all 09/13/2024 7:37 AM EDT Magdalene Dash LPN Patient Health Questionnaire -2 Score 0 09/13/2024 7:37 AM EDT Magdalene Dash LPN * Question Answer Date of Assessment Author Trouble falling or staying asleep, or sleeping too much Not at all 09/13/2024 7:37 AM EDT Magdalene Dash LPN Feeling tired or having griselda le energy Not at all 09/13/2024 7:37 AM EDT Magdalene Dash LPN Poor appetite or overeating Not at all 09/13/2024 7: 37 AM EDT Magdalene Dsah LPN Feeling bad about yourself - or that you are a failure or have let yourself or your family down Not at all 09/13/2024 7:37 AM EDT Magdalene Dash LPN Trouble concentrating on things, such as reading the newspaper or watching television Not at all 09/13/2024 7:37 AM EDT Magdalene Dash LPN Moving or speaking so slowly that other people could have noticed? Or the opposite - being so fidgety or restless that you have been moving around a lot more than usual. Not at all 09/13/2024 7:37 AM EDT Magdalene Dash LPN Thoughts that you would be better off or hurting yourself in some way Not at all 09/13/2024 7:37 AM EDT Magdalene Dash LPN Patient Health Questionnaire -9 Score 0 09/13/2024 7:37 AM EDT Magdalene Dash LPN * If you checked off any problems on this questionnaire so far, Question Answer Date of Assessment Author How difficult have these problems made it for you to do your work, take care of things at home, or get along with other people? Not difficult at all 09/13/2024 7:37 AM EDT Magdalene Dash LPN documented as of this encounter Miscellaneous Notes * Progress Notes - Rusty Hylton MD - 09/13/2024 8:00 AM EDT SUBJECTIVE Dianne Mcneal is a 83 y.o. female who presents for follow-up. Admitted to [facility] 10/22 with pneumonia, also had LHC required 2 PCI, in addition, underwent 3 renal artery stents with plans for further intervention Using oxygen at night Now on Losartan 50mg Laminectomy 01/21, had complications Notes some difficulty with urinary infection in the past, doing better now, prefers to follow CKD in [place], not interested in osteoporosis therapies 01/05/24 Frequent urinary infections, now follows urology in [facility], on methamine Had been using trimethoprim for a month; also on premarin cream during the week On pain pump, back feels improved Hospitalized with pancreatitis in 09/22, ?KACY; follows GI Had renal artery stents placed in 2022? 05/2024 No new med changes, no hospitalizations UTI have improved; better on methamine OA pain, better with pain pump Ongoing abd pain, following GI Right side edema; lasix 20mg as needed, about 3 per week Spironolactone twice daily Home BP are good 130s or better Weight stable in last few months 09/13/24 Increased pain this morning, uses morphine pump, discussed miralax Now with lasix twice a day, couple weeks now per cardiology She is not checking weight, relies on cramps, symptoms, edema Considering CT contrast, declined due to kidney function OBJECTIVE PHYSICAL EXAMINATION CONSTITUTIONAL: Conversant, well developed, NAD. EYES: No proptosis or lid-lag. EARS: Normal hearing. RESPIRATORY: Normal respiratory effort. LAB RESULTS 05/26 Hb 9.5 Cr 2.2 Egfr 21 09/23 Hb 9.3 Cr 2.3 Na 133 K 4.7 Bicarb 22 Gfr 25 Ca 9.5 P 3.5 Alb 4.1 PTH 38 BSAP 10.3 Ctelo 748 ASSESSMENT/PLAN 1. CKD4; egfr 25, at baseline; noted risks include hospitalization for pancreatitis, urine bland, no proteinuria 2. CKD mineral bone disorder; continue 2000 units vitd3 3. HTN, bp stable on Losartan and spironolactone; stable potassium 4. Osteoporosis, h/o therapy in the past, not interested at this time 5. Edema, off diuretics given spasms, recommend elevation, compression and low sodium intake Pt will discuss abdominal symptoms with GI before considering CT contrast abdomen; concern with CT contrast would have minimal risk of KACY with likely recovery, however, if unlikely to lead toward intervention or procedure, would favor against contrast; possibly MRI or US may be alternatives RTC 4 mo Patient Verification Patient identity has been confirmed using name and date of ? Yes Authorizations and Agreements/Telemedicine Consent sent and consent confirmed? Yes Patient Location: Patient's Home Patient confirms they are physically located in [place]? Yes If the patient is not physically located in [place], the provider has confirmed with Legal thatthe provider is authorized to provide services in patient's stated location? N/A Provider Location: remote from HealthCare Facility Audio and video or audio only? Audio and video Total visit time: 11 minutes documented in this encounter Plan of Treatment Upcoming Encounters Date Type Department Care Team ([facility] Contact Info) Description 01/14/2025 10:40 AM EDT Office Visit [facility] [employer] [address], [address] [place] [address] Rusty Hylton MD [address] [place] [address] Scheduled Orders Name Type Priority Associated Diagnoses Orde r Schedule Renal Function Panel, Plasma Lab Routine CKD (chronic kidney disease) stage 4, GFR 15-29 ml/min ([facility]) Age-related osteoporosis without current pathological fracture Essential hypertension Expected: 01/14/2025 (Approximate), Expires: 03/16/2026 Vitamin D 25 Hydroxy Lab Routine CKD (chronic kidney disease) stage 4, GFR 15-29 ml/min (CMS/HCC) Age-related osteoporosis without current pathological fracture Essential hypertension Expected: 01/14/2025 (Approximate), Expires: 03/16/2026 CBC W/O Differential Lab Routine CKD (chronic kidney disease) stage 4, GFR 15-29 ml/min (CMS/HCC) Age-related osteoporosis without current pathological fracture Essential hypertension Expected: 01/14/2025 (Approximate), Expires: 03/16/2026 PTH Intact Total Lab Routine CKD (chronic kidney disease) stage 4, GFR 15-29 ml/min (CMS/HCC) Age-related osteoporosis without current pathological fracture Essential hypertension Expected: 01/14/2025 (Approximate), Expires: 03/16/2026 Ferritin, Serum Lab Routine CKD (chronic kidney disease) stage 4, GFR 15-29 ml/min (CMS/HCC) Age-related osteoporosis without current pathological fracture Essential hypertension Expected: 01/14/2025 (Approximate), Expires: 03/16/2026 Iron & Total Iron Binding Capacity, Plasma (Includes Transferrin) Lab Routine CKD (chronic kidney disease) stage 4, GFR 15-29 ml/min (CMS/HCC) Age-related osteoporosis without current pathological fracture Essential hypertension Expected: 01/14/2025 (Approximate), Expires: 03/16/2026 documented as of this encounter Visit Diagnoses Diagnosis CKD (chronic kidney disease) stage 4, GFR 15-29 ml/min (CMS/HCC)- Primary Chronic kidney disease, Stage IV (severe) Age-related osteoporosis without current pathological fracture Essential hypertension Unspecified essential hypertension documented in this encounter Additional Health Concerns Assessment Noted Time PHQ-9 Depression Total Score: 0 09/14/19 25 7:37 AM EDT A fall risk assessment has been complete d for the patient 09/13/2024 7:39 AM EDT A Body Mass Index follow-up plan has been documented for the patient 09/13/2024 8:11 AM EDT documented as of this encounter Care Teams Social Media Executive Relationship Specialty Start Date End Date Anton Butts MD [address] [place] [address] [address] [place] [address] PCP - General 09/12/20 documented as of this encounter
--- NOTE | 2024-10-21 20:12 | XR_ITS ---
PROCEDURE INFORMATION: Exam: XR Chest Exam date and time: 10/22/2024 2:18 AM Age: 84 years old Clinical indication: Cough TECHNIQUE: Imaging protocol: Radiologic exam of the chest. Views: 1 view. COMPARISON: CT ABDOMEN PELVIS W CON 10/21/2024 10:00 PM FINDINGS: Lungs: Patchy diffuse airspace disease most prominent within the right perihilar and upper lung zone and left retrocardiac region. Recent CT demonstrated mild bibasilar atelectasis. The lung volumes are low. Pleural spaces: Unremarkable. No pleural effusion. No pneumothorax. Heart/Mediastinum: Unremarkable. No cardiomegaly. Vasculature: Unremarkable. Bones/joints: There are postsurgical changes of the right shoulder. Degenerative changes of both glenohumeral joints are noted. IMPRESSION: Patchy bilateral airspace disease may represent atelectasis or pneumonia. The findings appear more prominent than on the CT examination although the appearance may be accentuated due to low lung volumes and the patient's body habitus.
--- NOTE | 2024-10-21 20:48 | CT_ITS ---
PROCEDURE INFORMATION: Exam: CT Abdomen And Pelvis With Contrast Exam date and time: 10/21/2024 10:00 PM Age: 84 years old Clinical indication: Abdominal pain; Additional info: Rlq pain, n/v TECHNIQUE: Imaging protocol: Computed tomography of the abdomen and pelvis with contrast. Radiation optimization: All CT scans at this facility use at least one of these dose optimization techniques: automated exposure control; mA and/or kV adjustment per patient size (includes targeted exams where dose is matched to clinical indication); or iterative reconstruction. Contrast material: ISOVUE; Contrast volume: 75 ml; Contrast route: IV; COMPARISON: No relevant prior studies available. FINDINGS: Tubes, catheters and devices: An epidural catheter is noted with the reservoir in the subcutaneous soft tissues of the posterior right flank. Lungs: Mild atelectatic changes are noted at the lung bases. Liver: Normal. No mass. Gallbladder and biliary ducts: The gallbladder is absent. No biliary ductal dilation. Pneumobilia is evident. Pancreas: Normal. No ductal dilation. Spleen: The spleen is absent. Adrenal glands: Normal. No mass. Kidneys and ureters: Normal. No hydronephrosis. Stomach and bowel: There is left colon diverticulosis without acute inflammation. There is evidence of gastric bypass surgery. No bowel obstruction. No mucosal thickening. Appendix: No evidence of appendicitis. The appendix is not identified as a discrete structure however, there is no inflammatory process in the region of the cecum. Intraperitoneal space: Unremarkable. No free air. No significant fluid collection. Vasculature: There is severe calcific atherosclerotic disease. No aneurysm or dissection are evident. A proximal left renal stent is noted. Lymph nodes: Unremarkable. No enlarged lymph nodes. Urinary bladder: Unremarkable as visualized. Reproductive: The uterus is absent. Bones/joints: There are moderate to severe degenerative changes of the spine. No acute fracture. Soft tissues: Unremarkable. IMPRESSION: There is no acute process evident within the abdomen or pelvis.
--- NOTE | 2024-10-21 20:50 | ECG_ITS ---
APPROVED REPORT Exam: Resting ECG HR:63 bpm ECG Measurements Heart Rate 63 AXES QRSd 100 QRS 25 QT 398 T 76 QTc 405 Conclusion Motion artifact No STEMI within limitations Electronically signed by : MAXINE MARTIN, 10/22/2024 21:21:16
[2024-10-21 20:53] LABS: Basophils # 0.1 K/mm3 (0-0.2); Basophils % 0.5 % (0.1-2.0); Eosinophils # 0.1 Kmm3 (0.0-0.4); Eosinophils % 0.5 % (0.1-12.0); Hematocrit 27.6 % (37.0-47.0); Hemoglobin 8.5 g/dL (12.2-16.2); Immature Granulocytes # 0.12 10^3uL; Immature Granulocytes % 1.1 %; Lymphocytes # 3.1 K/mm3 (0.7-4.5); Lymphocytes % 28.6 % (10-50); Mean Corpuscular HGB Conc 30.8 g/dL (31.8-35.4); Mean Corpuscular Hemoglobin 25.2 pg (27.0-31.2); Mean Corpuscular Volume 81.9 fl (81-99); Mean Platelet Volume 11.5 fl (7.4-10.4); Monocytes # 0.7 K/mm3 (0.1-1.0); Monocytes % 6.5 % (1.7-9.3); Neutrophils # 6.9 K/mm3 (1.8-7.8); Neutrophils % 62.8 % (37.0-80.0); Nucleated Red Blood Cells # 0 10^3/uL; Nucleated Red Blood Cells % 0 %; Platelet Count 409 K/mm3 (142-424); Red Blood Count 3.37 M/mm3 (4.20-5.40); Red Cell Distribution Width 16.8 % (11.5-17.5)
[2024-10-21 20:56] VITALS: BP 110/45; PULSE 68; RESP 14; TEMP 37.2; O2SAT 94; BMI 32.9
--- OUTSIDE RECORDS SUMMARY | 2024-10-21 20:56 | XMS_ITS | Encounter Summary ---
Author Organization [facility] Address [address] [place] [address] Care Team Providers Care Tank Operator Name Role Phone Anton Butts MD Primary Care Provider [phone] Reason for Visit * Reason Onset Date Comments HCN - Patient Message 08/31/2024 Encounter Details Date Type Department Care Team (Late st Contact Info) Description 08/31/2024 Telephone [facility] [address], [address] [place] [address] Rusty Hylton MD [address] [place] [address] HCN - Patient Message Social History Tobacco Use Types Packs/Day Years Used Date Smoking Tobacco: Former Cigarettes 1 35.6 0 01/20/1956 - 09/14/1991 Passive Smoke Exposure: Past Smokeless Tobacco: Never Alcohol Use Standard Drinks/Week Comments No 0 (1 standard drink = 0.6 oz pur e alcohol) PHQ-2 Answer Date Recorded Patient Health Questionnaire-2 Score 0 05/17/2024 PHQ-2A Answer Date Recorded Depression Risk 0 01/05/2024 Comments Unknown Sex and Gender Information Value Date Recorded Sex Assigned at Not on file Legal Sex Female 7:40 PM EDT Gender Identity Not on file Sexual Orientation Not on file documented as of this encounter Miscellaneous Notes * Telephone Encounter - Magdalene Dash LPN - 09/03/2024 10:52 AM EDT Lab orders for follow up faxed to [facility] and fax confirmation received. P# [phone]. * Telephone Encounter - Magdalene Dash LPN - 08/31/2024 11:20 AM EDT Spoke with patient who reports that cardiology requested she call gizzard puller to discuss most recent lab results. Patient has complaints of abdominal pain, right leg edema, muscle spasms but blood pressure is normal. Patient has increased dose of lasix to twice daily and is on spironolactone. Patient agreeable with having labs collected on 09/03/24 for provider to review. Patient is requesting to be seen in clinic sooner than 09/13/24. Message given to provider in clinic today. Will review labs before moving appointment. Instructed that if symptoms become worse to call the clinic. * Telephone Encounter - Magdalene Dash LPN - 08/31/2024 11:05 AM EDT Faxed record to request to [facility] medical records for most recent labs for provider to review. Fax confirmation received. F * Telephone Encounter - Rian Lockwood - 08/31/2024 10:44 AM EDT Patient Phone Message Reason for Call: Pt stated she was not able to have her CT completed due to her GFR being 16 and creatinine level being 2.8. She is requesting a call to be advised. Best contact number and optimal time of day to reach caller: [phone] Note: Please do not reply to this message. Follow-up communication and further actions as a result of this message need to be communicated with the patient directly, if the patient is not active onMyChart. If the patient is active on MyChart, they will receive notification of the communication/outcome via MyChart. documented in this encounter Plan of Treatment Upcoming Encounters Date Type Department Care Team ([facility] Contact Info) Description 01/14/2025 10:40 AM EDT Office Visit Professional [employer] [facility] [address], [address] [place] [address] Rusty Hylton MD [address] [place] [address] documented as of this encounter Visit Diagnoses Not on filedocumented in this encounter Additional Health Concerns Assessment Noted Time A fall risk assessment has been complete d for the patient 05/17/2024 8:34 AM EST A Body Mass Index follow-up plan has been documented for the patient 05/19/2024 1:42 PM EST documented as of this encounter Care Teams Tank Operator Relationship Specialty Start Date End Date Anton Butts MD [address] [place] [address] [address] [place] [address] PCP - General 09/12/20 documented as of this encounter
--- OUTSIDE RECORDS SUMMARY | 2024-10-21 20:56 | XMS_ITS | Encounter Summary ---
Author Organization [facility] Address [address] [place] [address] Care Team Providers Care Sales Communications Manager Name Role Phone Anton Butts MD Primary Care Provider [phone] Encounter Details Date Type Department Care Team ([facility] st Contact Info) Description 09/12/2024 Telephone [facility] [address], [address] [place] [address] Magdalene Dash LPN [facility] Social History Tobacco Use Types Packs/Day Years [...] Telephone Encounter - Magdalene Dash LPN - 09/12/2024 8:54 AM EDT Faxed record request to [facility] to request lab results for follow up on 09/13/24. P# [phone] F# [phone] documented in this encounter Plan of Treatment Upcoming Encounters Date Type Department Care Team (Late st Contact Info) Description 01/14/2025 10:40 AM EDT Office Visit Professional [employer] [facility] [address], [address] [place] [address] Rusty Hylton MD [address] [facility] [address] [place] [address] documented as of this encounter Visit Diagnoses Not on filedocumented in this encounter Additional Health Concerns Assessment Noted Time A fall risk assessment has been complete d for the patient 05/17/2024 8:34 AM EST A Body Mass Index follow-up plan has been documented for the patient 05/19/2024 1:42 PM EST documented as of this encounter Care Teams Sales Communications Manager Relationship Specialty Start Date End Date Anton Butts MD [address] [place] [address] [address] [place] [address] PCP - General 09/12/20 documented as of this encounter
--- OUTSIDE RECORDS SUMMARY | 2024-10-21 20:56 | XMS_ITS | Encounter Summary ---
Author Organization [facility] Address [address] [place] [address] Care Team Providers Care Vocational Technical Education Director Name Role Phone Anton Butts MD Primary Care Provider [phone] Encounter Details Date Type Department Care Team (Latest Contact Info) Description 09/10/2024 Travel Social History Tobacco Use Types Packs/Day Years [...] on file documented as of this encounter Plan of Treatment Upcoming Encounters Date Type Department Care Team (Late st Contact Info) Description 01/14/2025 10:40 AM EDT Office Visit [facility] [employer] [facility] [address] [place] [address] Rusty Hylton MD [address] [place] [address] documented as of this encounter Visit Diagnoses Not on filedocumented in this encounter Additional Health Concerns Assessment Noted Time A fall risk assessment has been complete d for the patient 05/17/2024 8:34 AM EST A Body Mass Index follow-up plan has been documented for the patient 05/19/2024 1:42 PM EST documented as of this encounter Care Teams Vocational Technical Education Director Relationship Specialty Start Date End Date Anton Butts MD [address] [place] [address] [address] [place] [address] PCP - General 09/12/20 documented as of this encounter
--- OUTSIDE RECORDS SUMMARY | 2024-10-21 20:56 | XMS_ITS | Referral Summary ---
Author Organization [employer] [facility] [employer] Address [address] [place] [address] Care Team Providers Care Staple Processing Machine Operator Name Role Phone Unavailable Primary Care Provider Unavailabl e Social History Tobacco Use Types Packs/Day Years Used Date Smoking Tobacco: Never Assessed Comments Unknown Sex and Gender Information Value Date Recorded Sex Assigned at Female 10/27/2021 6:13 PM CDT Legal Sex Female 6:13 PM CDT Gender Identity Female 10/27/2021 6:13 PM CDT Sexual Orientation Not on file Plan of Treatment Not on file
--- OUTSIDE RECORDS SUMMARY | 2024-10-21 20:56 | XMS_ITS | Clinical Summary ---
Author Organization [employer] [facility] [employer] Address [address] [place] [address] Care Team Providers Care Polymerization Kettle Operator Name Role Phone Unavailable Primary Care [...]
--- OUTSIDE RECORDS SUMMARY | 2024-10-21 20:56 | XMS_ITS | Clinical Summary ---
Author Organization [facility] [place] Address [address] [facility] [address] [place] [address] Care Team Providers Care Truck Caterer Name Role Phone Anton Butts MD Primary Care Provider [phone] Allergies Active Allergy Reactions Criticality Noted Date Comments Atenolol Shortness of breath,Unknown - Patient states they do not know rxn details High 08/29/2018 Ciprofloxacin Rash,Unknown - Patient states they do not know rxn details Low 08/29/2018 Loratadine Unknown - Patient states they do not know rxn details Low 08/29/2018 Codeine Rash Low 07/12/2023 Cortisone Unknown - Patient states they do not know rxn details Low 05/31/2019 Erythromycin Itching,Unknown - Patient states they do not know rxn details Medium 05/31/2019 Hydrocodone Nausea 07/12/2023 Hydrocodone-Acetaminophe n Other - please document in the comment field Low 01/30/2020 dizzy light headed Latex Other - please document in the comment field,Unknown - Patient states they do not know rxn details Low 05/31/2019 blisters Lisinopril Cough High 07/12/2023 Metronidazole Unknown - Patient states they do not know rxn details Low 08/29/2018 Minocycline Rash Low 07/12/2023 Penicillins Rash,Unknown - Patient states they do not know rxn details Low 05/31/2019 Salmeterol Fever Medium 07/12/2023 Sulfa Drugs Unknown - Patient states they do not know rxn details Low 05/31/2019 Acetaminophen-Codeine Unknown - Patient states they do not know rxn details Low 08/29/2018 Medications Aspirin Buf,CaCarb-MgCa rb-MgO, 81 MG tablet TAKE 1 TABLET DAILY. 1 Active levothyroxine (Synthroid, Levoxyl) 75 MCG tablet TAKE 1 TABLET DAILY DIRECTED. 1 Active pantoprazole (ProtoNix) 40 MG EC tablet TAKE 1 TABLET DAILY. 1 Active ursodiol (Actigall) 300 MG capsule TAKE 2 CAPSULE Daily 1 Active diphenoxylate-a tropine (Lomotil) 2.5-0.025 MG tablet Take 1 tablet by mouth 4 (four) times a day if needed for diarrhea. Active pravastatin (Pravachol) 40 MG tablet 1 Active cholecalciferol (Vitamin D-3) 25 MCG (1000 UT) tablet Take 1 tablet (1,000 Units) by mouth 1 (one) time each day. Active fenofibrate micronized (Lofibra) 67 MG capsule 3 Active Estrace 0.1 MG/GM vaginal cream Place a pea sized amount around urethra/labia 3 times a week (MWF) 2 g 3 3 Active albuterol 108 (90 Base) MCG/ACT inhaler 3 Active fluticasone-sandra meterol (Advair Diskus) 250-50 MCG/ACT diskus inhaler 3 Active clopidogrel (Plavix) 75 MG tablet 3 Active traZODone (Desyrel) 50 MG tablet Take 1 tablet (50 mg) by mouth every night. 3 Active atorvastatin (Lipitor) 40 MG tablet 3 Active losartan (Cozaar) 50 MG tablet 3 Active nitroglycerin (Nitrostat) 0.4 MG SL tablet 3 Active budesonide-form oterol (Symbicort) 160-4.5 MCG/ACT inhaler Inhale 2 puffs 2 (two) times a day. 3 Active spironolactone (Aldactone) 25 MG tablet 4 Active Ketamine HCl (KETALAR IJ) 5% cream PRN Acti ve Dulera 100-5 MCG/ACT inhaler 5 Active furosemide (Lasix) 20 MG tablet 5 Active methenamine hippurate (Hiprex) 1 g tablet 5 Active Trulance 3 MG tablet TAKE 1 TABLET BY MOUTH ONCE DAILY BEFORE A MEAL FOR CONSTIPATION 5 Active magnesium oxide (Mag-Ox) 400 mg tablet Take 1 tablet by mouth daily. Active ascorbic acid (vitamin C) 1000 MG tablet Take 1 tablet by mouth daily. Active Active Problems Problem Noted Date Diagnosed Date Choledocholithiasis 02/04/2021 Osteoporosis 04/21/2020 Ischemic colitis, enteritis, or enterocolitis Post-menopausal 09/13/2018 CKD (chronic kidney disease) stage 3, GFR 30-59 ml/min 08/15/2018 Hyperlipemia 11/05/2015 Hypothyroidism 10/29/2015 Essential hypertension 10/29/2015 Encounters Date Type Department Care Team Description 09/13/2024 8:00 AM EDT Office Visit [facility] [address] , [address] [place] [address] Rusty Hylton MD CKD (chronic kidney disease) stage 4, GFR 15-29 ml/min ([facility]/H[facility]) (Primary Dx); Age-related osteoporosis without current pathological fracture; Essential hypertension 09/12/2024 Telephone [facility] [address] , [address] [place] [address] Magdalene Dash, RONALD 09/10/2024 Travel 09/03/2024 Telephone [facility] [address], [address] [place] [address] Magdalene Dash, IMPLEMENTATION ANALYST 08/31/2024 Telephone [facility] [address] , [address] [place] [address] Rusty Hylton MD [facility] - Patient Message from Last 3 Months Family History Medical History Relation Name Comments Cancer Brother 1 Eric Honeycutt Kidney disease Brother 1 Eric Honeycutt Hypertension Brother 2 Brody Honeycutt Cardiac disorder Father Vicente Honeycutt Hypertension Father Vicente Honeycutt Cardiac disorder Mother Michelle honeycutt Hyperlipidemia Mother Michelle honeycutt Hypertension Mother Michelle honeycutt Anemia Sister 2 Jojo Messina Cancer Sister 2 Jojo Messina Relation Name Status Comments Brother 1 Eric Honeycutt Brother 2 Brody Honeycutt Father Vicente Honeycutt Mother Michelle honeycutt Sister 1 J Alive Sister 2 Jojo Messina Alive Social History Tobacco Use Types Packs/Day Years [...] on file Sexual Orientation Not on file Last Filed Vital Signs Vital Sign Reading Time Taken Comments Blood Pressure 121/70 01/05/2024 10:06 AM EDT Pulse 89 01/05/2024 10:06 AM EDT Temperature 36.7 C (98.1 F) 01/05/2024 10:06 AM EDT Respiratory Rate 18 01/05/2024 10:06 AM EDT Oxygen Saturation 98% 01/05/2024 10:06 AM EDT Inhaled Oxygen Concentration - - Weight 89.8 kg (198 lb) 09/13/2024 7:32 AM EDT Height 157.5 cm (5' 2 ) 09/13/2024 7:32 AM EDT Body Mass Index 36.21 09/13/2024 7:32 AM EDT Plan of Treatment Upcoming Encounters Date Type Department Care Team (Late st Contact Info) Description 01/14/2025 10:40 AM EDT [facility] Visit [facility] [address], [address] [place] [address] Rusty Hylton MD [address] [place] [address] Health Maintenance Due Date Last Done Comments [facility]-Bone Density Scan 1940 [facility]-Medicare Annual Wellness (AWV) 1940 [facility]-/Child/Adol SDOH Screenings 1940 [facility]- SDOH Screenings 1958 [facility]-Adult SDOH Screenings 1958 [facility]-DTaP,Tdap,and Td Vaccines (1 - Tdap) 09/25/1959 [facility]-Zoster Vaccines (1 of 2) 1990 [facility]-NGLQR-88 Vaccine (8 - season) 2024 02/21/2024, 02/01/2023, 01/13/2022, Additional history exists [facility]-Depression Screening 09/13/2025 025, 09/13/2024, 01/05/2024 [facility]-Hepatitis A Vaccines Aged Out 07/10/2001, 12/31 No longer eligible based on patient's age to complete this topic [facility]-Pneumococcal Vaccine: 50+ Years Completed 01/11/2023, 02/05/2016 [facility]-RSV Vaccine: 60+ Years or Completed 04/21/2023 [facility]-Influenza Vaccine Completed 02/21/2024 , 01/11/2023, 01/20/2021, Additional history exists [facility]-Obesity Intervention Completed 025, 05/17/2024, 01/05/2024, Additional history exists HPV Vaccines Aged Out No longer eligi ble based on patient's age to complete this topic [facility]-HIB Vaccines Aged Out No longer e ligible based on patient's age to complete this topic [facility]-IPV Vaccines Aged Out No longer e ligible based on patient's age to complete this topic [facility]-Rotavirus Vaccines Aged Out No lo nger eligible based on patient's age to complete this topic Insurance [facility] [place] [address] Care Teams Truck Caterer Relationship Specialty Start Date End Date Anton Butts MD [address] [place] [address] [address]1 F[facility] Sanchez [id number] PCP - General 09/12/20
--- OUTSIDE RECORDS SUMMARY | 2024-10-21 20:56 | XMS_ITS | Continuity of Care Document ---
Author Organization [facility] Address [address] [place] [address] [address] [place] [address] Assessment Encounter Date Assessment Date Assessment LastModified by Organization Details LastModified Time 10/08/2024 10/08/2024 MS. Mcneal is 84 year old here for: Not available 10/08/2024 11:44:43 Plan of Treatment Reminders Order Date Submit Date Provider Last Modified By Organization Details Last Modified Time Details Appointments None recorded. Lab None recorded. Referral None recorded. Procedures None recorded. Surgeries None recorded. Imaging None recorded. Medication Orders compounded medication 2024 025 [facility], [address] [facility] [address], [place], [place], [id number], 5 16:21:38 Creon 36,000 unit-114,00 0 unit-180,00 0 unit capsule,del ayed release 2024 025 [id number], [address], [id number], 5 14:20:50 Patient TargetsNo targets recorded. Patient Instructions Encounter Date Encounter Id Patient Instructions Last Modified By Organization Details Last Modified Time 10/08/2024 [id number] f/u as needed Not available 0 10/08/2024 16:14:15 Reason for Referral None Reported. Problems Name Problem SNOMED Code Status Onset Date Resolution Date Notes Provider Name and Address Organization Details Recorded Time Asthma 227535771 [facility] [place] 3 09:36:31 Heart disease 20449110 Active 2022 Richard [place], [place] - [facility] 3 09:36:39 Acid reflux 866800439 Active 2022 [place] [facility] [place] 3 09:36:49 Irritable bowel syndrome 50947328 Active 2022 Richard fisher, [place] - [facility] - [facility] 3 09:37:01 Diverticulitis 539781848 Active 2022 Richadr fisher, [place] - [facility] - [facility] & [place] 3 09:37:10 Chronic interstitial cystitis 107639226 Active 2022 [place] [facility] [place] 3 09:37:17 Renal failure syndrome 60591543 Active 2022 Richard [place], [place] - [facility] & [facility] 3 09:37:29 Chronic urinary tract infection 922984858 Active 2022 Richard [place], [place] - [facility] - [facility] & [place] 3 09:37:38 Problem Notes None recorded. Procedures Surgical History Date Name Laterality Status Provider Name and Address Organization Details Recorded Time 01/17/20 24 Procedure Note completed Fernanda Max [place] - [facility] - [facility] 01/17/2024 13:13:55 interposition operation for uterine suspension completed Richard SOARES - [facility] - [facility] & [place] 08/11/2022 09:38:56 Total Hysterectomy completed Rian alison Thompson [place] - [facility] - [facility] & [place] 08/11/2022 09:39:03 biopsy of breast completed Richard SOARES - [facility] - [facility] [place] 08/11/2022 09:41:12 biopsy of urinary bladder completed [facility] 08/11/2022 09:41:26 cardiac catheterization completed Calebbutch SOARES - [facility] - [facility] & [place] 08/11/2022 09:41:51 cholecystectomy completed Richard RYAN [facility] & [place] 08/11/2022 09:42:02 Gastric bypass for obesity completed Richard RYAN [facility] & [place] 08/11/2022 09:42:14 Cataract Surgery completed Richard RYAN [facility] & [place] 08/11/2022 09:42:21 excision of basal cell carcinoma completed Richard RYAN [facility] & [place] 08/11/2022 09:43:18 procedure on back completed Richard RYAN [facility] & [place] 08/11/2022 09:43:35 Imaging Results None recorded. Procedure Notes None recorded. Medical Equipment None Reported. Allergies Allergen ID Allergen Name Allergen Category Reaction Reaction Severity Criticality Documentation Date Start Date Code Code System Note Provider Name and Address Organization Details Recorded Time 39450 Tylenol with Codeine medicatio n Not available Not available Not available 08/11/2022 90019 6 RxNorm FANY Hallman [facility] & [place] 3 09:30:52 15871 Product containin g penicilli n (product) medicatio n Not available Not available Not available 08/11/2022 94892 8001 SNOMED FANY Hallman [facility] & [place] 3 09:31:07 15616 Substance with sulfonami de structure and antibacte rial mechanism of action (substanc e) medicatio n Not available Not available Not available 08/11/2022 61070 8003 SNOMED FANY Hallman [facility] & [place] 3 09:31:16 53091 atenolol medicatio n Not available Not available Not available 08/11/2022 1202 RxNorm FANY Hallman [facility] & [place] 3 09:31:22 94448 cortisone medicatio n Not available Not available Not available 08/11/2022 2878 RxNorm FANY Hallman [facility] & [place] 3 09:31:30 60234 Cipro medicatio n Not available Not available Not available 08/11/2022 76422 3 RxNorm Richard fisher, FANY Humphries [place] & [place] 3 09:31:35 61223 Claritin- D medicatio n Not available Not available Not available 08/11/2022 37867 UNK Richard fisher, FANY Humphries [place] & [place] 3 09:31:43 77728 acetamino phen / hydrocodo ne medicatio n Not available Not available Not available 08/11/2022 77205 2 RxNorm Richard fisher, FANY RYAN - [place] & [place] 3 09:31:49 15500 erythromy mahsa medicatio n Not available Not available Not available 08/11/2022 4053 RxNorm Richard fisher, FANY RYAN [facility] & [place] 3 09:31:59 96178 latex environme nt,medica tion Not available Not available Not available 08/11/2022 15641 91 RxNorm Richard fisher, FANY RYAN [facility] & [place] 3 09:32:07 Medications Name Sig Start Date Stop Date Status Note LastModified by Organization Details LastModified Time compounded medication apply pea size amount to perianal region circumfe rential every 12h for 14 days 2024 active Not Available Not Available Not Avai lable tetracycli ne 500 mg capsule TAKE 1 [...] hippurate 1 gram tablet TAKE 1 TABLET BY MOUTH TWICE A DAY FOR KIDNEYS active Not Available Not Available No t Available ascorbic acid (vitamin C) 500 mg tablet Take 1 tablet 3 times a day by oral route. 12/14 completed Not Available Not Available Not Available meclizine 25 mg tablet TAKE 1 TABLET BY MOUTH THREE TIMES DAILY NEEDED FOR DIZZINES S active Not Available Not Available No t Available dexamethas one 2 mg tablet TAKE [...] completed Not Available Not Available Not Available [place] Saline 0.65 % nasal spray aerosol ADMINIST ER 1 SPRAY INTRANAS ALLY THREE TIMES DAILY 01/15 completed Not Available Not Available Not Available nitrofuran toin monohydrat e/macrocry stals 100 mg capsule TAKE 1 CAPSULE BY MOUTH TWICE DAILY FOR 5 DAYS WITH FOOD/HARISH L active Not Available Not Available No t Available magnesium 380 mg daily active Not [...] 00 unit-180,0 00 unit capsule,de layed release TAKE 3 CAPSULES BY MOUTH BEFORE EVERY MEAL AND 2 CAPSULES BEFORE SNACKS active Not Available Not Available No t [...] Arterial blood by Pulse oximetry Heart rate Provider Name and Address Organization Details Last Updated DateTime 5 157.48 cm 97.7 [degF] 97 % 97 % 78 /min [facility] & [place] 5 13:57:41 Social History None recorded. Functional Status Question Answer Note LastModified by Organization D etails LastModified Time What is your level of alcohol consumption? None [email or web address] Information not available 08/11/2022 Mental Status None recorded. Family History Relationship Description Onset Age of this Age Resolved Age Notes LastModified by Organization Details LastModified Time Brother Heart disease dec [email or web address] Not available 2022 09:38:11 Father Heart disease dec [email or web address] Not available 2022 09:38:11 Mother Heart disease dec [email or web address] Not available 2022 09:38:11 Sister Fall dec Not available 08/11/2022 09:38:23 Medical History No medical history recorded. Gynecological HistoryNo gynecological history recorded. Obstetrics History GPAL:G 0 P 0 0 0 0 Past Encounters Encounter ID Performer Location Encounter Start Date Encounter Closed Date Diagnosis/Indication Diagnosis SNOMED-CT Code Diagnosis ICD10 Code Diagnosis Note [id number] JENNIFER PAVON NP [facility] [address] [facility] [address] [place] [address] 10/08/2024 13:40:53 10/08/2024 15:29:23 History of pancreatitis 8449135203 9107 Z87.19 - unknown etiology- 06/2024 :CT scan w/wo showed resolved pancreatit is otherwise unremarkab le- Avoid Alcohol and NSAIDs- If reoccuranc e may need to discussing stopping spirolacto ne and /or fenofibrat e- refill creon Abdominal pain 98594886 R10.9 - Pain is located RUQ or LUQ . Seems to be worse if bending over- EGD unremarkab le- she said she felt Creon helps the best Chronic id iopathic constipation 56798612 K59.04 - using Trulance as needed but reports that it is little harsh so sometimes she just does MiraLax- gave samples of its relative try and if she likes it we can send in prescripti on Exocrine p ancreatic insufficiency 56050072 K86.81 - She felt CREON helped some with bloating and digestion. 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- c/o early satiety, abdominal pain, bloating, nausea correlate- referred to [facility] surgery last visit External hemorrhoids 239 17145 K64.4 Health Concerns Section Related Observation LastModified by Organization Detai ls LastModified Time None Recorded Concern Status LastModified by Organization Details LastModified Time None Recorded Payers Encounter Date Sequence Insurance Name Policy Number Policy Graves Covered Member ID Graves Member ID Guarantor Name 10/08/2024 1 [facility] (MEDICARE REPLACEMENT/A DVANTAGE - PPO) [id number] Dianne Mcneal [id number] Dianne Mcneal Notes Date Note Type Note [...] she was seen by CT surgery at [facility] for 99% celiac artery stenosis and 60% [...] in about 2 years. She reports her urgent care technician was keeping and eye on it . She does report some continued issues with complete emptying. We discussed increasing Creon to 3 pills with meals and 2 with snack to see if she noticed improvement. I also recommended a daily OTC laxative if she Trulance is to much for daily use. CTA was not obtained initially as pancreatitis was the concerns. She has history of celiac stenosis and was previously seen by vascular surgery at [facility]. Her kidney function is poor so I recommend referral to vascular surgery to let them determine what imaging they feel is needed. She reports today that she did not go to vascular surgery appointment as her urgent care technician told her she didn't need too. She was also told to stop her CREON which she felt helped her abdominal pain. She would like to restart it. She is also having issue with hemorroides. She is using trulance as needed but sometimes will just use mirlax. She denies any new GI symptoms. JENNIFER PAVON, REELING AND TUBING MACHINE OPERATOR [address], [place], [address], [facility] - [facility] - [place] & [place] 10/08/2024 16:17:11 OBGyn Episode No OBEpisode recorded.
--- OUTSIDE RECORDS SUMMARY | 2024-10-21 20:56 | XMS_ITS | Encounter Summary ---
Author Organization [facility] [address] [facility] [address] Care Team Providers Care Finger Buffs Assembler Name Role Phone Anton Butts MD Primary Care Provider [phone] Encounter Details Date Type Department Care Team ([facility] st Contact Info) Description 09/03/2024 Telephone [facility] [address] [facility] [address] [facility] [facility] [facility], [address] [place] [address] Magdalene Dash LPN [facility] Social History Tobacco Use Types Packs/Day [...] Encounter - Magdalene Dash LPN - 09/03/2024 8:57 AM EDT Faxed lab orders to [facility]. Fax confirmation received. P# documented in this encounter Plan of Treatment Upcoming Encounters Date Type Department Care Team (Late st Contact Info) Description 01/14/2025 10:40 AM EDT Office Visit [facility] [address] [facility] [address] [facility] [address] [facility], [address] [place] [address] Rusty Hylton MD [address] [facility] [address] [facility] [address] [facility] [address] [place] [address] documented as of this encounter Visit Diagnoses Not on filedocumented in this encounter Additional Health Concerns Assessment Noted Time A fall risk assessment has been complete d for the patient 05/17/2024 8:34 AM EST A Body Mass Index follow-up plan has been documented for the patient 05/19/2024 1:42 PM EST documented as of this encounter Care Teams Finger Buffs Assembler Relationship Specialty Start Date End Date Anton Butts MD [address] [place] [address] [address] [place] [address] PCP - General 09/12/20 documented as of this encounter
--- OUTSIDE RECORDS SUMMARY | 2024-10-21 20:56 | XMS_ITS | Data Portability ---
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 Mcneal is 84 year old here for: Not available 10/08/2024 11:44:43 Plan of Treatment Reminders Order Date Submit Date Provider Last Modified By Organization Details Last Modified Time Details Appointments None recorded. Lab urinalysis, dipstick 2024 025 [email or web address] [facility], [address], [place], [address], 5 14:59:26 Referral vascular surgeon referral 2024 025 [email or web address] Matthew Ruiz MD, [address] [facility], [place], [address], 5 08:59:27 Procedures None recorded. Surgeries None recorded. Imaging CT, abdomen, w/ contrast - Patient having RUQ abdominal pain and history of pancreatiti s 2024 025 [email or web address] [facility], [address], [place], [address], 5 14:41:13 Medication Orders compounded medication 2024 025 [facility], [address], [place], [place], [phone], 5 16:21:38 Creon 36,000 unit-114,00 0 unit-180,00 0 unit capsule,del ayed release 2024 025 [facility] #[id number], [address], [id number], 5 14:20:50 Creon 36,000 unit-114,00 0 unit-180,00 0 unit capsule,del ayed release 2024 025 [facility] #[id number], [address] [facility] [address], [place], [place], [phone], 5 20:25:38 Trulance 3 mg tablet 2023 024 [facility] #[id number], [address] [address] [place], [place], [phone], 4 14:00:35 Patient TargetsNo targets recorded. Patient Instructions Encounter Date Encounter Id Patient Instructions Last Modified By Organization Details Last Modified Time 10/08/2024 [id number] f/u as needed Not available 0 10/08/2024 16:14:15 Reason for Referral Vascular Surgeon Referral fo r Stenosis of celiac artery Referring Physician: Tere Lange, Gastroenterology, Encounter Date: 07/16/2024 Results Created Date Observation Date Name Description Value Unit Range Abnormal Flag Note LastModifiedBy Organization Detail LastModifiedTime 02/14/2002/14/2024 urina lysis , dipst ick Leukocytes (reference range) negati ve Not Available [place] [address], [place], [address], 02/14/2024 14:14:26 02/14/2002/14/2024 urina lysis , dipst ick Nitrite (reference range:) negati ve Not Available [place] [address], [place], [address], 02/14/2024 14:14:26 02/14/20 24 02/14/2024 urina lysis , dipst ick Urobilinogen (reference range) 0.2 Not Available [facility] [place] [address], [place], [address], 02/14/2024 14:14:26 02/14/2002/14/2024 urina lysis , dipst ick Protein (reference range) negati ve Not Available [place] [address], [place], [address], 02/14/2024 14:14:26 02/14/2002/14/2024 urina lysis , dipst ick pH (reference range 5-8.5) 6.0 Not Available Cecilia tral [place] [address], [place], [address], 02/14/2024 14:14:26 02/14/20 24 02/14/2024 urina lysis , dipst ick Blood (reference range:) negati ve Not Available [place] [address] [address] [facility] [address], [place], [address], 02/14/2024 14:14:26 02/14/20 24 02/14/2024 urina lysis , dipst ick Specific [place] (reference range) 1.015 Not Available [place] [address] [address] [facility] [address], [place], [address], 02/14/2024 14:14:26 02/14/2002/14/2024 urina lysis , dipst ick Ketone (reference range) negati ve Not Available [place] [address] [address] [facility] [address], [place], [address], 02/14/2024 14:14:26 02/14/2002/14/2024 urina lysis , dipst ick Bilirubin (reference range) negati ve Not Available [place] [address] [address] [facility] [address], [place], [address], 02/14/2024 14:14:26 02/14/2002/14/2024 urina lysis , dipst ick Glucose (reference range) negati ve Not Available [place] [address] [address] [facility] [address], [place], [address], 02/14/2024 14:14:26 02/14/2002/14/2024 urina lysis , dipst ick Color (reference range: yellow-brown ) Yellow Not Available [place] [address] [address] [facility] [address], [place], [address], 02/14/2024 14:14:26 07/03/19 25 07/02/2024 urina lysis , dipst ick Leukocytes (reference range) negati ve Not Available [place] [address], [place], [address], 07/02/2024 14:59:00 07/03/19 25 07/02/2024 urina lysis , dipst ick Nitrite (reference range:) negati ve Not Available [facility] [place] [address] [address] [facility] [address], [place], [address], 07/02/2024 14:59:00 07/03/19 25 07/02/2024 urina lysis , dipst ick Urobilinogen (reference range) 0.2 Not Available [facility] [place] [address] [address] [facility] [address], [place], [address], 07/02/2024 14:59:00 07/03/19 25 07/02/2024 urina lysis , dipst ick Protein (reference range) negati ve Not Available [place] [address] [address] [facility] [address], [place], [address], 07/02/2024 14:59:00 07/03/19 25 07/02/2024 urina lysis , dipst ick pH (reference range 5-8.5) 6.0 Not Available [place] [address] [address] [facility] [address], [place], [address], 07/02/2024 14:59:00 07/03/19 25 07/02/2024 urina lysis , dipst ick Blood (reference range:) negati ve Not Available [address] [place] [address] [address] [facility] [address], [place], [address], 07/02/2024 14:59:00 07/03/19 25 07/02/2024 urina lysis , dipst ick Specific [place] (reference range) 1.015 Not Available [place] [address] [address] [facility] [address], [place], [address], 07/02/2024 14:59:00 07/03/19 25 07/02/2024 urina lysis , dipst ick Ketone (reference range) negati ve Not Available [place] [address], [place], [address], 07/02/2024 14:59:00 07/03/19 25 07/02/2024 urina lysis , dipst ick Bilirubin (reference range) negati ve Not Available [place] [address], [place], [address], 07/02/2024 14:59:00 07/03/19 25 07/02/2024 urina lysis , dipst ick Glucose (reference range) negati ve Not Available [place] [address] [address] [facility] [address], [place], [address], 07/02/2024 14:59:00 07/03/19 25 07/02/2024 urina lysis , dipst ick Color (reference range: yellow-brown ) Yellow Not Available [place] [address] [address] [facility] [address], [place], [address], 07/02/2024 14:59:00 06/22/19 25 06/22/2024 CT, abdom en, w/wo contr ast No observ ation record ed. [facility] [address], [place], [address], 06/26/2024 13:49:05 Result Notes None recorded. Problems Name Problem SNOMED Code Status Onset Date Resolution Date Notes Provider Name and Address Organization Details Recorded Time Asthma 845212550 Active 2022 FANY Hallman - [place] 3 09:36:31 Heart disease 23226689 Active 2022 FANY Hallman - [place] 3 09:36:39 Acid reflux 030611718 Active 2022 Richard fisher, [place] - [facility] - [place] 3 09:36:49 Irritable bowel syndrome 09140521 Active 2022 Richard fisher, [place] - [facility] [place] 3 09:37:01 Diverticulitis 199919738 Active 2022 Richard fisher, [place] - [facility] - [place] 3 09:37:10 Chronic interstitial cystitis 140381585 Active 2022 Richard fisher, [place] - [facility] [place] 3 09:37:17 Renal failure syndrome 13991837 Active 2022 Richard fisher, [place] - [facility] - [place] 3 09:37:29 Chronic urinary tract infection 070087213 Active 2022 Richard fisher, [place] - [facility] - [place] 3 09:37:38 Problem Notes None recorded. Procedures Surgical History Date Name Laterality Status Provider Name and Address Organization Details Recorded Time 01/17/20 Procedure Note completed Fernanda SOARES - [facility] - [place] 01/17/2024 13:13:55 interposition operation for uterine suspension completed Richard SOARES - [facility] - [place] 08/11/2022 09:38:56 Total Hysterectomy completed Calebaminah Thompson [place] - [facility] - [place] 08/11/2022 09:39:03 biopsy of breast completed Richard SOARES - [facility] - [place] 08/11/2022 09:41:12 biopsy of urinary bladder completed Richard SOARES - [facility] - [place] 08/11/2022 09:41:26 cardiac catheterization completed Richard SOARES - [facility] - [place] 08/11/2022 09:41:51 cholecystectomy completed Calebbutch SOARES - [facility] - [place] 08/11/2022 09:42:02 Gastric bypass for obesity completed Calebfanareli RYAN [facility] & [place] 08/11/2022 09:42:14 Cataract Surgery completed Richard Humphries [place] 08/11/2022 09:42:21 excision of basal cell carcinoma completed Richard RYAN [facility] & [place] 08/11/2022 09:43:18 procedure on back completed Richard RYAN [facility] & [place] 08/11/2022 09:43:35 Imaging Results None recorded. Procedure Notes None recorded. Medical Equipment None Reported. Allergies Allergen ID Allergen Name Allergen Category Reaction Reaction Severity Criticality Documentation Date Start Date Code Code System Note Provider Name and Address Organization Details Recorded Time 89216 Tylenol with Codeine medicatio n Not available Not available Not available 08/11/2022 93036 6 RxNorm FANY Hallman [facility] & [place] 3 09:30:52 19759 Product containin g penicilli n (product) medicatio n Not available Not available Not available 08/11/2022 50172 8001 SNOMED FANY Hallman [facility] & [place] 3 09:31:07 90602 Substance with sulfonami de structure and antibacte rial mechanism of action (substanc e) medicatio n Not available Not available Not available 08/11/2022 90677 8003 SNOMED FANY Hallman [facility] & [place] 3 09:31:16 81518 atenolol medicatio n Not available Not available Not available 08/11/2022 1202 RxNorm FANY Hallman [facility] & [place] 3 09:31:22 12394 cortisone medicatio n Not available Not available Not available 08/11/2022 2878 RxNorm FANY Hallman [facility] & [place] 3 09:31:30 72883 Cipro medicatio n Not available Not available Not available 08/11/2022 63327 3 RxNorm FANY Hallman [facility] & [place] 3 09:31:35 33083 Claritin- D medicatio n Not available Not available Not available 08/11/2022 17855 UNK FANY Hallman - [place] 3 09:31:43 16338 acetamino phen / hydrocodo ne medicatio n Not available Not available Not available 08/11/2022 70112 2 RxNorm FANY Hallman - [place] 3 09:31:49 29093 erythromy mahsa medicatio n Not available Not available Not available 08/11/2022 4053 RxNorm FANY Hallman [place] 3 09:31:59 26781 latex environme nt,medica tion Not available Not available Not available 08/11/2022 48757 91 RxNorm FANY Hallman [facility] & [place] 3 09:32:07 Medications Name Sig Start Date [...] completed Not Available Not Available Not Available [place] Saline 0.65 % nasal spray aerosol ADMINIST [...] Updated DateTime 5 157.48 cm 35.8 kg/m2 44954.1 g 97.2 [degF] 98 % 98 % 95 /min 148 mm[Hg] 66 mm[Hg] Claribel guzman [place] - [facility] & [place] 5 13:41:56 Date Recorded Body height Body temperature Oxygen saturation Oxygen saturation in Arterial blood by Pulse oximetry Heart rate Systolic blood pressure Diastolic blood pressure Provider Name and Address Organization Details Last Updated DateTime 5 157.48 cm 97 [degF] 100 % 100 % 70 /min 130 mm[Hg] 70 mm[Hg] Shante Case [place] - [facility] & [place] 5 14:12:48 Date Recorded Body height Body mass index (BMI) Body weight Body temperature Oxygen saturation Oxygen saturation in Arterial blood by Pulse oximetry Heart rate Systolic blood pressure Diastolic blood pressure Provider Name and Address Organization Details Last Updated DateTime 5 157.48 cm 35.8 kg/m2 17630.1 g 97.7 [degF] 95 % 95 % 87 /min 147 mm[Hg] 62 mm[Hg] Claribel guzman [facility] & [place] 5 14:07:42 Date Recorded Body height Body temperature Oxygen saturation Oxygen saturation in Arterial blood by Pulse oximetry Heart rate Provider Name and Address Organization Details Last Updated DateTime 5 157.48 cm 97.7 [degF] 97 % 97 % 78 /min Shante Billingsley [facility] & [place] 5 13:57:41 Date Recorded Body height Body mass index (BMI) Body weight Body temperature Oxygen saturation Oxygen saturation in Arterial blood by Pulse oximetry Heart rate Heart rate Systolic blood pressure Diastolic blood pressure Provider Name and Address Organization Details Last Updated DateTime 4 157.48 cm 35.9 kg/m2 70422.4 6 g 97.9 [degF] 98 % 98 % 81 /min 80 /min 175 mm[Hg] 76 mm[Hg] Jayna Ramirez [facility] & [place] 4 09:55:25 Social History None recorded. Functional Status Question Answer Note LastModified by Organization D etails LastModified Time What is your level of alcohol consumption? None [email or web address] Information not available 08/11/2022 Mental Status None recorded. Family History Relationship Description Onset Age of this Age Resolved Age Notes LastModified by Organization Details LastModified Time Brother Heart disease dec [email or web address] Not available 2022 09:38:11 Father Heart disease dec [email or web address] Not available 2022 09:38:11 Mother Heart disease dec [email or web address] Not available 2022 09:38:11 Sister Fall dec [email or web address] Not available 08/11/2022 09:38:23 Medical History No medical history recorded. Gynecological HistoryNo gynecological history recorded. Obstetrics History GPAL:G 0 P 0 0 0 0 Past Encounters Encounter ID Performer Location Encounter Start Date Encounter Closed Date Diagnosis/Indication Diagnosis SNOMED-CT Code Diagnosis ICD10 Code Diagnosis Note [id number] Wicho Erickson Jr, MD [facility] [address] [address] 08/11/2022 09:10:54 08/11/2022 10:26:28 Urinary tract infectious disease 96992659 N39.0 Patient with history of recurrent urinary [...] She will return if her symptoms recur. [id number] Li Ramirez NP, S [facility]-1 00 [address] [facility] 100 [place] [address] 12/15/2023 09:43:05 12/15/2023 10:45:37 Recurrent urinary tract infection 584166027 N39.0 UA clearPVR 40ccDiscus sed active bowel habits, probiotics , take Vitamin C, hygeine, voiding prior to and post sex (wash), and wipe front to back. Schedule Renal US and KUBStart Methenamin e 1 gram bid RTC in 8 weeks for f/u Nocturia 103751476 R35.1 Urge incon tinence of urine 89330241 N39.41 [id number] CLARIBEL ALEXANDER NP [facility] [address] [place] [address] 01/16/2024 09:25:10 01/16/2024 10:42:16 History of pancreatitis 4498238612 9107 Z87.19 Check labs today. She has not had follow up imaging after diagnosis of pancreatit is in August 2023. Follow up with EUS. Early satiety 015922827 R68.81 EGD recommende d for new onset nausea, early satiety. Nausea 305789531 R11.0 Abdominal pain 36295359 R10.9 Left upper quadrant, see HPI for details.ED precaution s. [id number] CLARIBEL ALEXANDER NP [facility] [address] [place] [address] 01/17/2024 11:26:13 01/17/2024 12:10:30 History of pancreatitis 9469920673 9107 Z87.19 Check labs today. She has not had follow up imaging after diagnosis of pancreatit is in August 2023. Follow up with EUS. [id number] Li Ramirez NP, S [facility] Urology-1 00 [address] [facility] [address] [place] [address] 02/14/2024 13:19:03 02/14/2024 14:17:18 Chronic urinary tract infection 685762000 N39.0 UA negativeCo ntinue Methenamin e 1 gram bidRenal US results discussed with pt in clinic todayRTC in 6 months for f/u [id number] TERE LANGE NP [facility] [address] [place] [address] 02/29/2024 09:46:51 02/29/2024 11:02:44 History of pancreatitis 9453016027 9107 Z87.19 Early satiety 238656372 R68.81 Nausea 821336678 R11.0 Abdominal pain 88060684 R10.9 Chronic id iopathic constipation 75462865 K59.04 Steatotic liver disease 895775440 K76.0 [id number] TERE LANGE NP [facility] [address] [place] [address] 06/06/2024 13:30:15 06/06/2024 14:30:50 History of pancreatitis 0726283323 9107 Z87.19 Early satiety 548265832 R68.81 Nausea 702898694 R11.0 Abdominal pain 21660071 R10.9 Chronic id iopathic constipation 11550698 K59.04 - She denies any issues with constipati on and has not been taking Trulance Steatotic liver disease 956282770 K76.0 - CT ordered Exocrine p ancreatic insufficiency 79559677 K86.81 [id number] Li Ramirez NP, S [facility] Urology-1 [address] [facility] [address] [place] [address] 07/02/2024 13:38:52 07/02/2024 14:57:03 Chronic urinary tract infection 125798552 N39.0 UA negativeCo ntinue Methenamin e 1 gram bidContinu e Estrace creamRTC in 3 months for f/u Nocturia 843015667 R35.1 [id number] TERE LANGE, ALDEN [facility] [address] [place] [address] 07/16/2024 13:55:09 07/16/2024 14:53:16 History of pancreatitis 5469306521 9107 Z87.19 Early satiety 809711258 R68.81 Nausea 599202069 R11.0 Abdominal pain 96683464 R10.9 Chronic id iopathic constipation 16619884 K59.04 Steatotic liver disease 556864239 K76.0 Exocrine p ancreatic insufficiency 21261514 K86.81 Slow trans it constipation 36166567 K59.01 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- c/o early satiety, abdominal pain, bloating, nausea correlate- referred [facility] visit External hemorrhoids 239 15004 K64.4 Health Concerns Section Related Observation LastModified by Organization Detai ls LastModified Time None Recorded Concern Status LastModified by Organization Details LastModified Time None Recorded Advance Directives Directive None Recorded Payers Insurance Date Sequence Insurance Name Policy Number Policy Graves Covered Member ID Graves Member ID Guarantor Name 10/05/2024 1 [facility] (MEDICARE REPLACEMENT/A DVANTAGE - PPO) [id number] Dianne Mcneal [id number] Dianne Mcneal Notes Date Note Type Note Provider Name and Address Organization Details Recorded Time 4 text/html Previous: Dianne Mcneal is a 83-year-old female here today by referral for recurrent pancreatitis and nausea.She was seen by her primary care provider on 11/25/2023 for complaints of N/V, upper abdominal pain, and recurrent UTI. The patient requested a GI referral for recurrent pancreatitis. She states she was hospitalized earlier this year for 6 days at [facility]. CT scan revealed There is worsening stranding [...] the year with polyp removal, done in [place]. She was seen by Dr. Olvin Hogan [...] remove stents. She was initially sent to [facility] gastroenterology in [address] Vicente [...] loss or bloody bowel movements. TERE LANGE, DOUGH MACHINE OPERATOR [address] [facility], [place], [address], [place] - [facility] - [place] 03/07/2024 15:14:58 5 text/html Previous: Dianne Mcneal is a 83-year-old female here today by referral for recurrent pancreatitis and nausea.She was seen by her primary care provider on 11/25/2023 for complaints of N/V, upper abdominal pain, and recurrent UTI. The patient requested a GI referral for recurrent pancreatitis. She states she was hospitalized earlier this year for 6 days at [facility]. CT scan revealed There is worsening stranding [...] the year with polyp removal, done in [place]. She was seen by Dr. Olvin Hogan [...] remove stents. She was initially sent to [facility] gastroenterology in [address] Vicente [...] irregular stools, or bloody stool. TERE LANGE, DOUGH MACHINE OPERATOR [address] [facility], [place], [address], [facility] - [place] - [place] 06/06/2024 20:26:04 5 text/html 07/02/2024 83 yowf RTC for ER f/u. Patient reports she went to [facility] to have a CT scan performed related [...] 2.30, GFR 25. Pt sees Dr Hylton vamp throater at . patient with history of recurrent [...] renal failure sees Dr. Hylton at the [facility]. Patient reports she has had cardiac and renal stents placed her her container filler. Pt had pain pump placed last with with Dr Orantes in [place]. 06/22/2024: CT scan of abdomen without contrast no pathology. Urine culture positive for E coli that was pansensitive. BUN 43, Creat 2.30 eGFT 25.12/19/2023: Renal US unremarkable Li Ramirez NP, S [address], [place], [address], [place] - [facility] & [place] 07/02/2024 15:00:11 5 text/html Dianne Mcneal is [...] in about 2 years. She reports her container filler was keeping and eye on it . [...] they feel is needed. TERE LANGE, ALDEN [address], [place], [address], [place] - [facility] - [place] 07/16/2024 23:50:51 5 text/html Dianne Mcneal is a 83-year-old [...] in about 2 years. She reports her container filler was keeping and eye on it . [...] was previously seen by [facility]. Her kidney function is poor so I recommend referral to vascular surgery to let them determine what imaging they feel is needed. She reports today that she did not go to vascular surgery appointment as her container filler told her she didn't need too. She was also told to stop her CREON which she felt helped her abdominal pain. She would like to restart it. She is also having issue with hemorroides. She is using trulance as needed but sometimes will just use mirlax. She denies any new GI symptoms. TERE LANGE, DOUGH MACHINE OPERATOR [address], [place], [address], [facility] - [facility] - [place] & [place] 10/08/2024 16:17:11 OBGyn Episode No OBEpisode recorded.
[2024-10-21 21:02] LABS: Alanine Aminotransferase 17 U/L (12-78); Albumin/Globulin Ratio 1.4 (1.1-1.8); Alkaline Phosphatase 57 U/L (38-126); Aspartate Amino Transferase 28 U/L (14-36); Bilirubin,Total 0.5 mg/dl (0.2-1.3); Blood Urea Nitrogen 52 mg/dl (7-17); Calcium 9.8 mg/dl (8.4-10.2); Carbon Dioxide 11 mmol/L (22.0-30.0); Chloride 104 mmol/L (98-107); Estimated Glomerular Filt Rate 17 ml/min (>60); GFR (African American) 20 ML/MIN (>60); Globulin 2.8 g/dL (1.3-3.2); Glucose 154 mg/dl (74-100); Lipase 94 U/L (23-300); Sodium 125 mmol/L (136-145); Total Protein,Serum 6.8 g/dl (6.3-8.2)
[2024-10-21] MEDS: ONDANSETRON 4MG/2ML VIAL 4 MG IV (21:03)
[2024-10-21] MEDS: MORPHINE 4MG/ML SYRINGE 4 MG IV (21:03)
--- NOTE | 2024-10-21 21:04 | PC.NURSE ---
family arrives to bedside. Pt provided with warm blankets. Declines any other needs at this time
[2024-10-21 21:08] LABS: Creatinine Clearance Estimated 21 mL/min (50-200)
--- NOTE | 2024-10-21 21:09 | PC.NURSE ---
Critical K+ 6.0 reported by lab. aware.
[2024-10-21 21:14] LABS: Troponin I 0.04 ng/ml (0.00-0.034)
--- NOTE | 2024-10-21 21:18 | [facility].EDGENADL ---
Discharge Plan Disposition Patient Disposition: Admitted Condition: Fair Clinical Impressions Clinical Impression: Diarrhea, Acute dehydration, Acidosis, lactic, Acute hyponatremia, Acute hyperkalemia, Acute kidney injury superimposed on CKD Discharge ED Provider: Tammie Cullen General Adult HPI General Chief complaint: Nausea/Vomiting/Diarrhea Stated complaint: n/v/d x2days, soa, abd pain, decreased oral intake Time Seen by Provider: 10/21/24 20:48 Mode of Arrival: EMS Source of Information: Patient Description of Symptoms (Recalled from ER Triage Doc. by RN): Pt presents from home with c/o RLQ abdominal pain and N/V/D x 2 days History of Present Illness HPI narrative: This patient is an 84-year-old female with extensive past medical history including CAD, CHF, renal insufficiency, GERD, recurrent and chronic UTIs, COPD, hypertension, hypothyroidism, hyperlipidemia presenting to the emergency department for evaluation with concern for severe abdominal pain that started in the right lower quadrant and is now generalized, nausea, vomiting, dry heaves, and diarrhea for the last 2 days. She arrives by EMS who noted the patient was hypertensive but otherwise reassuring vitals en route. They did not administer anything prior to arrival. Patient states that she has not been able to keep any oral intake in. No other concerns or complaints noted. She is status post cholecystectomy, gastric bypass, multiple ureteral stents in the past, and prior hysterectomy. She does still have her appendix. Her daughter arrives and expresses concern that she was up all night having diarrhea and today is now too weak to walk, though she typically lives alone and cares for herself at home. Related Data Home Medications ?Medication ?Instructions ?Recorded ?Confirmed aspirin 81 mg tablet,delayed 81 mg PO DAILY 08/16/17 10/04/24 release (Adult Low Dose Aspirin) nitroglycerin 0.4 mg sublingual 0.4 mg sublingual Q5MINP PRN chest 10/18/22 10/04/24 tablet pain nebulizers (Aeroneb Go Nebulizer) 11/04/22 10/04/24 baclofen 2 % cream in metered-dose 1 ea topical DIRECTED PRN Pain 12/27/22 10/04/24 applicator gabapentin 10 % cream in 1 ea topical DIRECTED Pain 12/27/22 10/04/24 metered-dose applicator ketamine 5 % cream in metered-dose 1 ea topical DIRECTED 12/27/22 10/04/24 applicator oxygen-air delivery systems 12/27/22 10/04/24 azelastine 137 mcg (0.1 %) nasal 2 spray intranasal HS PRN Dry 10/11/23 10/04/24 spray Nasal Passages ascorbic acid (vitamin C) 500 mg 500 mg PO Q6H 11/14/23 10/04/24 capsule atorvastatin 40 mg tablet (Lipitor) 40 mg PO DAILY 11/14/23 10/04/24 losartan 50 mg tablet (Cozaar) 50 mg PO DAILY 11/14/23 10/04/24 spironolactone 25 mg tablet 25 mg PO BID 11/14/23 10/04/24 estradiol 0.01% (0.1 mg/gram) 1 applic vaginal DIRECTED 12/02/23 10/04/24 vaginal cream (Estrace) pantoprazole 40 mg tablet,delayed See Rx Instructions .Route .COMPLEX 12/02/23 10/04/24 release (Protonix) morphine (PF) 1 mg/mL injection 1 mg intrathecal CONT Pain 12/08/23 10/04/24 solution [id number]-rhbajtrp-[id number] 1 cap PO DAILY 06/27/24 10/04/24 36,000-114,000-180,000 unit capsule,delay rel (Creon) Previous Rx's ?Medication ?Instructions ?Recorded sodium chloride 0.65 % nasal spray 1 spray intranasal TID #50 mL 10/17/23 aerosol (Mccune Saline) triamcinolone acetonide 0.1 % 1 applic topical BID #15 grams 11/14/23 topical cream levothyroxine 75 mcg tablet See Rx Instructions .Route 02/12/24 .COMPLEX #90 tabs trazodone 50 mg tablet See Rx Instructions .Route 02/12/24 .COMPLEX #180 tabs ursodiol 300 mg capsule See Rx Instructions .Route 04/11/24 .COMPLEX #180 caps albuterol sulfate 90 mcg/actuation 2 puff inhalation Q4HP PRN 05/16/24 aerosol inhaler shortness of breath or wheezing #8.5 grams ipratropium 0.5 mg-albuterol 3 mg 3 ml inhalation QID PRN shortness 05/16/24 (2.5 mg base)/3 mL nebulization of breath or wheezing 90 days #90 soln mL mometasone-formoterol HFA 100 2 puff inhalation BID 90 days #13 05/16/24 mcg-5 mcg/actuation aerosol grams inhaler (Dulera) nitrofurantoin 100 mg PO BID 5 days #10 caps 07/23/24 monohydrate/macrocrystals 100 mg capsule (Macrobid) fenofibrate micronized 67 mg 67 mg PO DAILY #90 caps 08/01/24 capsule furosemide 20 mg tablet 20 mg PO QAM #90 tabs 08/15/24 meclizine 25 mg tablet 25 mg PO TID PRN dizziness #90 tabs 10/04/24 methenamine hippurate 1 gram tablet 1 g PO BID kidneys #180 tabs 10/04/24 plecanatide 3 mg tablet (Trulance) 3 mg PO DAILY #90 tabs 10/04/24 Allergies Allergy/AdvReac Type Severity Reaction Status Date / Time lisinopril Allergy Intermediate cough Verified 10/04/24 13:37 atenolol (ATENOLOL) Allergy Unknown ASTHMA Verified 10/04/24 13:37 ATTACK ciprofloxacin (From CIPRO) Allergy Unknown SWELLING/RA Verified 10/04/24 13:37 SH codeine (CODEINE) Allergy Unknown I-RASH Verified 10/04/24 13:37 cortisone (CORTISONE) Allergy Unknown I-HIVES/SOB Verified 10/04/24 13:37 erythromycin base Allergy Unknown I-RASH Verified 10/04/24 13:37 (ERYTHROMYCIN BASE) hydrocodone (From LORTAB) Allergy Unknown NA-NAUSEA Verified 10/04/24 13:37 latex (LATEX) Allergy Unknown I-HIVES Verified 10/04/24 13:37 loratadine (LORATADINE) Allergy Unknown SWELLING Verified 10/04/24 13:37 metronidazole (From FLAGYL) Allergy Unknown NA-DIZZINES Verified 10/04/24 13:37 S minocycline (From MINOCIN) Allergy Unknown I-RASH Verified 10/04/24 13:37 Penicillins (PENICILLINS) Allergy Unknown I-RASH Verified 10/04/24 13:37 Sulfa (Sulfonamide Allergy Unknown I-RASH Verified 10/04/24 13:37 Antibiotics) (SULFA (SULFONAMIDE ANTIBIOTICS)) carvedilol Allergy Difficulty Verified 10/04/24 13:37 Breathing metoprolol Allergy Difficulty Verified 10/04/24 13:37 Breathing fluticasone (From Advair AdvReac Fever Verified 10/04/24 13:37 Diskus) levofloxacin AdvReac Unknown Verified 10/04/24 13:37 allergy reaction salmeterol (From Advair AdvReac Fever Verified 10/04/24 13:37 Diskus) [facility] Disclaimer: The information contained in this section may have been updated after the patient was seen, as this information can be updated by other users. 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 Functional abdominal pain syndrome Chronic neck pain Internal carotid artery stenosis Severe sleep apnea Neck pain Obesity CAD in grindstone artery Pulmonary hypertension History of sleep apnea Nocturnal hypoxia Dyspnea on exertion History of smoking 30 or more pack years Asthma Dizziness Left-sided weakness History of stent insertion of renal artery Renal artery stenosis Diastolic heart failure Right-sided congestive heart failure History of sleep apnea History of asthma Pleural effusion, bilateral Pneumonia Acute respiratory failure with hypoxia Hypoxemia Bradycardia Spinal stenosis of lumbar region Cough UTI (urinary tract infection) Vaginal yeast infection Hypertensive urgency Chronic UTI Insomnia Vitamin D deficiency Overactive bladder Excessive cerumen in both ear canals Persistent dry cough Asthma Osteoporosis Interstitial cystitis Renal failure Diverticulosis GERD (gastroesophageal reflux disease) Heart disease History of asthma Dilatation of bladder DDD (degenerative disc disease) Back pain Gallstones UTI (urinary tract infection) Left lower lobe pneumonia Atelectasis Renal insufficiency Anemia CAD (coronary artery disease) Benign paroxysmal vertigo Surgical History H/O gastric bypass History of renal stent H/O: hysterectomy Hx of cataract removal with insertion of prosthetic lens Hx of colonoscopy Status post rotator cuff surgery H/O heart artery stent S/P cardiac catheterization History of biopsy of bladder H/O breast biopsy History of dilation and curettage Previous back surgery Hx of cholecystectomy Family History Father Coronary artery disease Hyperlipidemia Hypertension Stroke Mother Coronary artery disease Heart attack Hyperlipidemia Hypertension Brother Cancer Coronary artery disease Diabetes Heart attack Hyperlipidemia Hypertension Stroke Sister Cancer Hyperlipidemia Hypertension Diabetes Son Coronary artery disease Heart attack Daughter Hyperlipidemia Hypertension Social History Smoking Status: Never smoker years smoked: 30 second hand exposure: No alcohol intake: never substance use type: denies use current occupational status: retired Travel in the last 8 weeks?: None household members: none housing: house current occupational exposures/hazards: No caffeine: Yes Have you lived/traveled outside [place] in past 30 days?: No Contact w/someone who lives/traveled outside [place] past 30 days?: No Exposure to someone with infectious disease in past 14 days?: No Do you have a fever (greater than 100.4 F or 38 C)?: No Have you tested positive for COVID-19?: No Exposed to someone with COVID-19 in past 14 days?: No Do you have a sore throat?: No Do you have a cough?: No Do you have any weakness?: No Do you have any diarrhea?: No Are you experiencing any unusual bleeding?: No Do you have any muscle aches/pain?: No Do you have any abdominal pain?: No Are you experiencing loss of taste or smell?: No Other Medical History Have you received the Flu Vaccine for this season: No Have you received the Pneumonia Vaccine: Yes ROS Obtained: Yes All systems reviewed & no additional complaints except as documented Physical Exam General General appearance: alert, in no apparent distress and obese Comment: Uncomfortable appearing Head Head exam: atraumatic and normocephalic Eye Eye exam: Present normal appearance, PERRL and EOMI ENT ENT exam: Present normal exam, normal oropharynx, mucous membranes moist and normal external ear exam Neck Neck exam: Present normal inspection, full ROM and trachea midline; Absent tenderness Chest Chest inspection: Present normal inspection and symmetric chest wall rise; Absent tenderness Respiratory Respiratory exam: Present normal lung sounds bilaterally; Absent respiratory distress, wheezes, stridor or accessory muscle use Cardiovascular Cardiovascular exam: Present regular rate and normal rhythm Abdominal Exam Abdominal exam: Present soft and tenderness; Absent distention, guarding, rebound or rigidity Comment: generalized Extremities Exam Extremities exam: Present normal inspection, full ROM and normal capillary refill; Absent tenderness or edema Back Exam Back exam: Present normal inspection and full ROM; Absent tenderness Neurological Exam Neurological exam: Present alert, oriented X3 and CN II-XII intact; Absent motor sensory deficit Psychiatric Psychiatric exam: Present normal affect and normal mood Skin Skin exam: Present warm and dry Medical Decision Making Medical Records Medical records reviewed: Yes I reviewed the patient's medical records. Screening: Per USPSTF and CDC recommendations, given the prevalence of disease in our region, it is our hospital?s policy to screen for HIV and viral Hepatitis for all patients aged 18 and over and those with ongoing risk factors. Doni Inquiry Pt receiving controlled substance: No Vital Signs: 10/21/24 20:56 10/21/24 21:30 Temperature 98.9 F Temperature Source Oral Pulse Rate 62 Pulse Rate [Right] 68 Respiratory Rate 14 19 Blood Pressure 134/45 L Blood Pressure [Right Arm] 110/45 L Blood Pressure Mean 55 Blood Pressure Mean [Right Arm] 66 Blood Pressure Source [Right Arm] Automatic Cuff Blood Pressure Position [Right Arm] Sitting 02 Sat by Pulse Oximetry 94 L 96 Oxygen Delivery Method Room Air Room Air Lab Data Lab results reviewed: Yes I reviewed the patient's lab results. Lab Results 10/21/24 20:46: WBC 11.0 H, RBC 3.37 L, Hgb 8.5 L, Hct 27.6 L, MCV 81.9, MCH 25.2 L, MCHC 30.8 L, RDW 16.8, Plt Count 409, MPV 11.5 H, Neut % (Auto) 62.8, Lymph % (Auto) 28.6, [place] % (Auto) 6.5, Eos % (Auto) 0.5, Baso % (Auto) 0.5, Neut # (Auto) 6.9, Lymph # (Auto) 3.1, [place] # (Auto) 0.7, Eos # (Auto) 0.1, Baso # (Auto) 0.1, Sodium 125 L, Potassium 6.0 H, Chloride 104, Carbon Dioxide 11 L, Anion Gap 16.0 H, BUN 52 H, Creatinine 2.70 H, Estimated Creat Clear 21, Estimated GFR 17 L*, Est GFR ( Amer) 20 L, Glucose 154 H, Calcium 9.8, Total Bilirubin 0.5, AST 28, ALT 17, Alkaline Phosphatase 57, Troponin I 0.04 H, Total Protein 6.8, Albumin 4.0, Globulin 2.8, Albumin/Globulin Ratio 1.4, Lipase 94 10/21/24 21:12: VBG pH 7.22 L, VBG pCO2 27.8 L, VBG pO2 76.5 H, VBG HCO3 11.2 L, VBG Total CO2 12.0 L, VBG O2 Saturation 91.1 H, VBG Base Excess -16.5 L, VBG Lactic Acid 3.9 H 10/21/24 21:21: Lactate 1.7 10/21/24 23:04: Sodium 125 L, Potassium 5.3 H, Chloride 112 H, Carbon Dioxide 6 L* D, Anion Gap 12.3, BUN 42 H, Creatinine 2.00 H D, Estimated Creat Clear 29, Estimated GFR 24 L, Est GFR ( Amer) 29 L D, Glucose 132 H, Calcium 13.0 H* D, Troponin I 0.03 10/21/24 20:46 10/21/24 23:04 Orders (Tests/Meds): ED MEDICATIONS Generic Name Dose Route Start Last Admin Trade Name Freq PRN Reason Stop Dose Admin Sodium Chloride 1,000 mls @ 100 mls/hr 10/21/24 23:15 Sod Chlor 0.9% 1000ml Bag IV 11/20/24 23:14 .Q10H CHARLI Ondansetron HCl 4 mg 10/21/24 23:13 Ondansetron 4mg/2ml Vial IV 11/20/24 23:12 Q8HP PRN Nausea Sodium Bicarbonate 650 mg 10/21/24 23:35 Sodium Bicarbonate 650mg Tablet PO 11/20/24 23:34 TID CHARLI Sodium Chloride 10 ml 10/21/24 23:13 Sodium Chloride 0.9% 10ml Flush Syringe IV 11/20/24 23:12 NEEDED PRN Maintain IV Site Discontinued Medications Generic Name Dose Route Start Last Admin Trade Name Freq PRN Reason Stop Dose Admin Dextrose 50 ml 10/21/24 21:12 10/21/24 21:52 Dextrose 50% 50ml Syringe (Crash Cart) IVP 10/21/24 21:13 50 ml ONCE ONE Administration Sodium Chloride 500 mls @ 999 mls/hr 10/21/24 21:12 10/21/24 21:52 Sod Chlor 0.9% 1000ml Bag IV 10/21/24 21:42 999 mls/hr .Q31M ONE Administration Calcium Gluconate/Sodium Chloride 1 gm in 50 mls @ 50 mls/hr 10/21/24 21:15 10/21/24 21:52 Calcium Gluconate 1,000mg/50ml Nacl Premix IV 10/21/24 22:14 50 mls/hr ONCE ONE Administration Insulin Human Regular 10 unit 10/21/24 21:12 10/21/24 21:53 Insulin Human Regular 100 Units/Ml 10ml Vial IVP 10/21/24 21:13 10 unit ONCE ONE Administration Iopamidol 75 ml 10/21/24 22:06 10/21/24 22:07 Iopamidol-370 (76%);100ml Bottle IV 10/21/24 22:07 75 ml ONCE ONE Administration Morphine Sulfate 4 mg 10/21/24 20:49 10/21/24 21:03 Morphine 4mg/Ml Syringe IV 10/21/24 20:50 4 mg ONCE ONE Administration Ondansetron HCl 4 mg 10/21/24 20:49 10/21/24 21:03 Ondansetron 4mg/2ml Vial IV 10/21/24 20:50 4 mg ONCE ONE Administration Sodium Chloride 10 ml 10/21/24 22:06 10/21/24 22:07 Sodium Chloride 0.9% 10ml Syr (Rad Only) IV 10/21/24 22:07 10 ml ONCE ONE Administration ORDERS Category Date Time Status CT abdomen pelvis w con Stat Cat Scan 10/21/24 20:48 Completed Chest XR -- portable [XR chest portable] Stat Exams 10/21/24 20:12 Ordered BMP [Basic Metabolic Panel] Stat Lab 10/21/24 23:04 Completed Complete Blood Count Auto Diff Stat Lab 10/21/24 20:46 Completed Comprehensive Metabolic Panel AMLAB Lab 10/22/24 06:00 Ordered Comprehensive Metabolic Panel Stat Lab 10/21/24 20:46 Completed Diarrhea 23 Panel, PCR Stat Lab 10/21/24 22:57 Ordered Full Resp Panel w/COVID ([facility]) Routine Lab 10/21/24 23:17 Ordered Lactic Acid Stat Lab 10/21/24 21:21 Completed Lipase Stat Lab 10/21/24 20:46 Completed Magnesium AMLAB Lab 10/22/24 06:00 Ordered Phosphorous AMLAB Lab 10/22/24 06:00 Ordered Trop I [Troponin I] Stat Lab 10/21/24 20:46 Completed Troponin I Q3H Lab 10/21/24 23:04 Completed Troponin I Q3H Lab 10/22/24 02:49 Ordered UA [Urinalysis and Microscopic] Stat Lab 10/21/24 22:40 Ordered VBG [Venous Blood Gas] Stat RT 10/21/24 21:12 Completed ECG Data Tracing #1: I reviewed this ECG and interpreted as documented below: Sinus bradycardia with a ventricular to 63 bpm. Significant motion artifact a great study but no STEMI within the limitations of this EKG ECG initial impression date: 10/21/24 ECG initial impression time: 20:52 Tracing #2: I reviewed this ECG and interpreted as documented below: Bradycardia. Incomplete right bundle branch block. Difficult to ascertain underlying rhythm, appears to be junctional bradycardia. No acute STEMI. I did have an interactive discussion with cardiology who recommended this could be related to hyperkalemia causing the flattening of the P waves. ECG initial impression date: 10/21/24 ECG initial impression time: 21:18 Medical Decision Narrative: In summary, this patient is a 84-year-old female presenting to the Emergency Department for evaluation of nausea, vomiting, diarrhea, lower abdominal pain for several days with inability to tolerate oral intake. Differential diagnoses considered include but are not limited to colitis, gastroenteritis, diverticulitis, appendicitis, cystitis, polynephritis, sepsis, dehydration, KACY. Ruling out the most morbid conditions drove assessment. It should be noted patient's history includes extensive cardiovascular history including CAD, hypertension, hyperlipidemia, CHF, as well as COPD, CKD, interstitial cystitis with recurrent UTIs, hypothyroidism which may or may not be at goal therapy. This complicates all aspects of care by increasing patient's risk for morbidity. I reviewed patient's past medical records and noted prior evaluations by cardiology and by PCP for maintenance of health. On exam, the patient is lying in bed uncomfortable appearing with some lower abdominal tenderness. No rebound, guarding, or rigidity. She is hemodynamically stable on vitals. She is afebrile and nontoxic. workup included evaluation to evaluate for infectious, metabolic, cardiac derangements as well as EKG and CT abdomen pelvis with IV contrast. I independently interpreted CT scan prior to the radiologist read and noted no obvious acute colonic infection, no concerns for appendicitis. Please see their read for final interpretation. Labs were obtained that demonstrated mild leukocytosis. She has stable chronic anemia. Chemistry significant for a significant lactic acidosis and metabolic acidosis with a pH of 7.22. She also has hyponatremia with a sodium of 125, hyperkalemia with a potassium of 6, KACY on CKD. Cardiology noted concerns that her EKG changes with flattened P waves could be related to hyperkalemia. I gave her 1 g of IV calcium as well as insulin and dextrose. I also gave her of 500 cc bolus of IV fluids. EMS had given her 500 mL of fluids prior to arrival, so she is gotten total liter. Overall, I feel the patient has severe dehydration, volume contraction, lactic acidosis, hyponatremia, and hyperkalemia in the setting of an acute diarrheal illness without acute surgical pathology noted on CT scan. I feel she would benefit from admission for further evaluation and management. I had an indirect discussion with the hospitalist who admitted the patient Critical Care Critical Care Time Critical Care Time: Yes Attestation: On 10/21/24, the high probability of a clinically significant, sudden or life threatening deterioration of the following system(s) required my full and direct attention, intervention and personal management. The time I documented below is in addition to time spent performing reported procedures but includes the following listed in this critical care notation. Total Time Total Critical Care Time: 45
[2024-10-21 21:20] LABS: VBG Base Excess -16.5 mmol/L (-2.4-2.3); VBG HCO3 11.2 mmol/L (23-30); VBG Oxygen Saturation 91.1 % (50-70); VBG PCO2 27.8 mmol/L (35-51); VBG PH 7.22 mmol/L (7.31-7.41); VBG PO2 76.5 mmol/L (28-40)
[2024-10-21 21:21] LABS: Lactate Venous 3.9 mmol/L (0.4-2.0)
[2024-10-21 21:30] VITALS: BP 134/45; PULSE 62; RESP 19; O2SAT 96
--- NOTE | 2024-10-21 21:30 | ECG_ITS ---
APPROVED REPORT Exam: Resting ECG HR:58 bpm ECG Measurements Heart Rate 58 AXES QRSd 106 QRS 21 QT 417 T 35 QTc 413 Conclusion SUPRAVENTRICULAR BRADYCARDIA INCOMPLETE RIGHT BUNDLE BRANCH BLOCK [90+ ms QRS DURATION, TERMINAL R IN V1/V2, 40+ ms S IN I/aVL/V4/V5/V6] ABNORMAL RHYTHM ECG UNCONFIRMED REPORT Electronically signed by : JOHN PAUL SÁNCHEZ, 10/23/2024 06:31:51
[2024-10-21 21:50] LABS: Lactic Acid 1.7 mmol/L (0.7-2.1)
[2024-10-21] MEDS: DEXTROSE 50% 50ML SYRINGE (CRASH CART) 50 ML IVP (21:52)
[2024-10-21] MEDS: 0.9 % SODIUM CHLORIDE 1000ML 500 ML 999 ML IV (21:52)
[2024-10-21] MEDS: CALCIUM GLUC IN NACL, ISO-OSM 1 GM/50 ML BAG IV (21:52)
[2024-10-21] MEDS: INSULIN HUMAN REGULAR 100 UNITS/ML 10ML VIAL 10 UNIT IVP (21:53)
--- NOTE | 2024-10-21 21:54 | PC.NURSE ---
Pt to ct scan via bed.
--- NOTE | 2024-10-21 21:54 | PC.NURSE ---
pt to CT by bed at this time
[2024-10-21] MEDS: SODIUM CHLORIDE 0.9% 10ML SYR (RAD ONLY) 10 ML IV (22:07)
[2024-10-21] MEDS: IOPAMIDOL-370 (76%);100ML BOTTLE 75 ML IV (22:07)
--- NOTE | 2024-10-21 22:07 | PC.NURSE ---
pt returned to room by stretcher at this time
--- NOTE | 2024-10-21 22:39 | PC.NURSE ---
intermittent straight cath performed. Small amount of urine obtained.
--- NOTE | 2024-10-21 22:55 | PC.NURSE ---
domestic housekeeper called to notify of need for admission.
--- NOTE | 2024-10-21 23:09 | PC.NURSE ---
report called to Henny HARRIS
[2024-10-21] MEDS: 0.9 % SODIUM CHLORIDE 1000ML 1,000 ML 100 ML IV (23:15)
[2024-10-21 23:23] LABS: Anion Gap 12.3 mEq/L (5-15); Blood Urea Nitrogen 42 mg/dl (7-17); Chloride 112 mmol/L (98-107); Creatinine Clearance Estimated 29 mL/min (50-200); Estimated Glomerular Filt Rate 24 ml/min (>60); GFR (African American) 29 ML/MIN (>60); Glucose 132 mg/dl (74-100); Potassium 5.3 mmoL/L (3.5-5.1); Sodium 125 mmol/L (136-145)
[2024-10-21 23:27] LABS: Carbon Dioxide 6 mmol/L (22.0-30.0)
--- NOTE | 2024-10-21 23:31 | PC.NURSE ---
Pt transferred to assigned room with belongings
[2024-10-21 23:32] VITALS: BP 136/49; PULSE 63; RESP 18; TEMP 36.9; O2SAT 94
[2024-10-21 23:38] LABS: Troponin I 0.03 ng/ml (0.00-0.034)
--- NOTE | 2024-10-21 23:50 | EXP.HP ---
History of Present Illness *Admission Date: 10/21/24 *Reason for visit:: Nausea vomiting diarrhea *History of present illness: This is an 84-year-old female with a past medical history of PAD, hypothyroidism, hypertension, hyperlipidemia, CKD stage III, history of gastric bypass who presents emergency department today with complaints of profuse diarrhea. She also endorses right lower quadrant pain and poor p.o. intake. Daughter at the bedside reports that her mother was up all night with diarrhea and now is too weak to walk. She typically lives alone and cares for herself. Patient denies any fever. Denies any urinary symptoms. Denies chest pain but does endorse cough with pain with inspiration. Emergency department workup notable for pH of 7.22 with a CO2 of 27 on VBG, sodium of 125, potassium of 6.0. CO2 11, anion gap of 16, creatinine of 2.7, lactic of 1.7, troponin of 0.04. CT abdomen pelvis with contrast without acute abnormality. EKG on admission notable for sinus bradycardia with heart rate of 58. Cardiology was consulted and recommends correction of electrolytes and acidosis. Given her acute renal failure, diarrheal illness she will be admitted to the hospital service. [facility] Disclaimer: The information contained in this section may have been updated after the patient was seen, as this information can be updated by other users. Medical History (Updated 10/22/24 @ 00:14 by Jeanine Priest [facility] Dyspnea COPD (chronic obstructive pulmonary disease) CKD (chronic kidney disease) stage 3, GFR 30-59 ml/min History of pancreatitis Chronic low back pain HLD (hyperlipidemia) Acute cystitis without hematuria Constipation Hypothyroid HTN (hypertension) Coronary artery disease Myocardial infarct Hyponatremia Generalized weakness Fatigue Loss of appetite Body aches Atrophic vaginitis Urge incontinence Renal failure Injury of left hip Fall Left hip pain UTI due to Klebsiella species Tubular adenoma of colon 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 Functional abdominal pain syndrome Chronic neck pain Internal carotid artery stenosis Severe sleep apnea Neck pain Obesity CAD in [place] artery Pulmonary hypertension History of sleep apnea Nocturnal hypoxia Dyspnea on exertion History of smoking 30 or more pack years Asthma Dizziness Left-sided weakness History of stent insertion of renal artery Renal artery stenosis Diastolic heart failure Right-sided congestive heart failure History of sleep apnea History of asthma Pleural effusion, bilateral Pneumonia Acute respiratory failure with hypoxia Hypoxemia Bradycardia Spinal stenosis of lumbar region Cough UTI (urinary tract infection) Vaginal yeast infection Hypertensive urgency Chronic UTI Insomnia Vitamin D deficiency Overactive bladder Excessive cerumen in both ear canals Persistent dry cough Asthma Osteoporosis Interstitial cystitis Renal failure Diverticulosis GERD (gastroesophageal reflux disease) Heart disease History of asthma Dilatation of bladder DDD (degenerative disc disease) Back pain Gallstones UTI (urinary tract infection) Left lower lobe pneumonia Atelectasis Renal insufficiency Anemia CAD (coronary artery disease) Benign paroxysmal vertigo Surgical History H/O gastric bypass History of renal stent H/O: hysterectomy Hx of cataract removal with insertion of prosthetic lens Hx of colonoscopy Status post rotator cuff surgery H/O heart artery stent S/P cardiac catheterization History of biopsy of bladder H/O breast biopsy History of dilation and curettage Previous back surgery Hx of cholecystectomy Family History Father Coronary artery disease Hyperlipidemia Hypertension Stroke Mother Coronary artery disease Heart attack Hyperlipidemia Hypertension Brother Cancer Coronary artery disease Diabetes Heart attack Hyperlipidemia Hypertension Stroke Sister Cancer Hyperlipidemia Hypertension Diabetes Son Coronary artery disease Heart attack Daughter Hyperlipidemia Hypertension Social History Smoking Status: Never smoker years smoked: 30 second hand exposure: No alcohol intake: never substance use type: denies use current occupational status: retired Travel in the last 8 weeks?: None household members: none housing: house current occupational exposures/hazards: No caffeine: Yes Have you lived/traveled outside [place] in past 30 days?: No Contact w/someone who lives/traveled outside [place] past 30 days?: No Exposure to someone with infectious disease in past 14 days?: No Do you have a fever (greater than 100.4 F or 38 C)?: No Have you tested positive for COVID-19?: No Exposed to someone with COVID-19 in past 14 days?: No Do you have a sore throat?: No Do you have a cough?: No Do you have any weakness?: No Do you have any diarrhea?: No Are you experiencing any unusual bleeding?: No Do you have any muscle aches/pain?: No Do you have any abdominal pain?: No Are you experiencing loss of taste or smell?: No Other Medical History Have you received the Flu Vaccine for this season: No Have you received the Pneumonia Vaccine: Yes Review of Systems Review of Systems Review of systems:: pertinent systems reviewed and negative unless documented below Review of systems (narrative): Negative except for HPI Meds Home Medications and Allergies Home Medications ?Medication ?Instructions ?Recorded ?Confirmed ?Type aspirin 81 mg tablet,delayed 81 mg PO DAILY 08/16/17 10/22/24 History release (Adult Low Dose Aspirin) nitroglycerin 0.4 mg sublingual 0.4 mg sublingual Q5MINP PRN chest 10/18/22 10/22/24 History tablet pain nebulizers (Aeroneb Go Nebulizer) 11/04/22 10/04/24 History oxygen-air delivery systems 12/27/22 10/04/24 History azelastine 137 mcg (0.1 %) nasal 2 spray intranasal HS PRN Dry 10/11/23 10/22/24 History spray Nasal Passages sodium chloride 0.65 % nasal spray 1 spray intranasal TID #50 mL 10/17/23 10/22/24 Rx aerosol ([place] Saline) ascorbic acid (vitamin C) 500 mg 500 mg PO Q6H 11/14/23 10/22/24 History capsule atorvastatin 40 mg tablet (Lipitor) 40 mg PO DAILY 11/14/23 10/22/24 History losartan 50 mg tablet (Cozaar) 50 mg PO DAILY 11/14/23 10/22/24 History spironolactone 25 mg tablet 25 mg PO BID 11/14/23 10/22/24 History triamcinolone acetonide 0.1 % 1 applic topical BID #15 grams 11/14/23 10/22/24 Rx topical cream pantoprazole 40 mg tablet,delayed 40 mg PO DAILY 12/02/23 10/22/24 History release (Protonix) albuterol sulfate 90 mcg/actuation 2 puff inhalation Q4HP PRN 05/16/24 10/22/24 Rx aerosol inhaler shortness of breath or wheezing #8.5 grams mometasone-formoterol HFA 100 2 puff inhalation BID 90 days #13 05/16/24 10/22/24 Rx mcg-5 mcg/actuation aerosol grams inhaler (Dulera) [id number] 1 cap PO DAILY 06/27/24 10/22/24 History 36,000-114,000-180,000 unit capsule,delay rel (Creon) fenofibrate micronized 67 mg 67 mg PO DAILY #90 caps 08/01/24 10/22/24 Rx capsule meclizine 25 mg tablet 25 mg PO TID PRN dizziness #90 tabs 10/04/24 10/22/24 Rx methenamine hippurate 1 gram tablet 1 g PO BID kidneys #180 tabs 10/04/24 10/22/24 Rx furosemide 20 mg tablet 40 mg PO QAM 10/22/24 10/22/24 History levothyroxine 75 mcg tablet 75 mcg PO DAILY 10/22/24 10/22/24 History magnesium 500 mg tablet 500 mg PO DAILY 10/22/24 10/22/24 History trazodone 50 mg tablet 100 mg PO HS 10/22/24 10/22/24 History ursodiol 300 mg capsule 600 mg PO DAILY 10/22/24 10/22/24 History New Prescriptions to Start Prescriptions: Allergies Allergy/AdvReac Type Severity Reaction Status Date / Time lisinopril Allergy Intermediate cough Verified 10/04/24 13:37 atenolol (ATENOLOL) Allergy Unknown ASTHMA Verified 10/04/24 13:37 ATTACK ciprofloxacin (From CIPRO) Allergy Unknown SWELLING/RA Verified 10/04/24 13:37 SH codeine (CODEINE) Allergy Unknown I-RASH Verified 10/04/24 13:37 cortisone (CORTISONE) Allergy Unknown I-HIVES/SOB Verified 10/04/24 13:37 erythromycin base Allergy Unknown I-RASH Verified 10/04/24 13:37 (ERYTHROMYCIN BASE) hydrocodone (From LORTAB) Allergy Unknown NA-NAUSEA Verified 10/04/24 13:37 latex (LATEX) Allergy Unknown I-HIVES Verified 10/04/24 13:37 loratadine (LORATADINE) Allergy Unknown SWELLING Verified 10/04/24 13:37 metronidazole (From FLAGYL) Allergy Unknown NA-DIZZINES Verified 10/04/24 13:37 S minocycline (From MINOCIN) Allergy Unknown I-RASH Verified 10/04/24 13:37 Penicillins (PENICILLINS) Allergy Unknown I-RASH Verified 10/04/24 13:37 Sulfa (Sulfonamide Allergy Unknown I-RASH Verified 10/04/24 13:37 Antibiotics) (SULFA (SULFONAMIDE ANTIBIOTICS)) carvedilol Allergy Difficulty Verified 10/04/24 13:37 Breathing metoprolol Allergy Difficulty Verified 10/04/24 13:37 Breathing fluticasone (From Advair AdvReac Fever Verified 10/04/24 13:37 Diskus) levofloxacin AdvReac Unknown Verified 10/04/24 13:37 allergy reaction salmeterol (From Advair AdvReac Fever Verified 10/04/24 13:37 Diskus) Exam Data for Last 24 hours Vital signs and Labs for Last 24 Hours: Temp Pulse Resp BP Pulse Ox O2 Del Method 98.5 F 63 18 136/49 L 96 Room Air 10/21/24 23:32 10/21/24 23:32 10/21/24 23:32 10/21/24 23:32 10/21/24 21:30 10/21/24 23:32 Laboratory Results - last 24 hr 10/21/24 20:46: WBC 11.0 H, RBC 3.37 L, Hgb 8.5 L, Hct 27.6 L, MCV 81.9, MCH 25.2 L, MCHC 30.8 L, RDW 16.8, Plt Count 409, MPV 11.5 H, Neut % (Auto) 62.8, Lymph % (Auto) 28.6, [place] % (Auto) 6.5, Eos % (Auto) 0.5, Baso % (Auto) 0.5, Neut # (Auto) 6.9, Lymph # (Auto) 3.1, [place] # (Auto) 0.7, Eos # (Auto) 0.1, Baso # (Auto) 0.1, Sodium 125 L, Potassium 6.0 H, Chloride 104, Carbon Dioxide 11 L, Anion Gap 16.0 H, BUN 52 H, Creatinine 2.70 H, Estimated Creat Clear 21, Estimated GFR 17 L*, Est GFR ( Amer) 20 L, Glucose 154 H, Calcium 9.8, Total Bilirubin 0.5, AST 28, ALT 17, Alkaline Phosphatase 57, Troponin I 0.04 H, Total Protein 6.8, Albumin 4.0, Globulin 2.8, Albumin/Globulin Ratio 1.4, Lipase 94 10/21/24 21:12: VBG pH 7.22 L, VBG pCO2 27.8 L, VBG pO2 76.5 H, VBG HCO3 11.2 L, VBG Total CO2 12.0 L, VBG O2 Saturation 91.1 H, VBG Base Excess -16.5 L, VBG Lactic Acid 3.9 H 10/21/24 21:21: Lactate 1.7 10/21/24 23:04: Sodium 125 L, Potassium 5.3 H, Chloride 112 H, Carbon Dioxide 6 L* D, Anion Gap 12.3, BUN 42 H, Creatinine 2.00 H D, Estimated Creat Clear 29, Estimated GFR 24 L, Est GFR ( Amer) 29 L D, Glucose 132 H, Calcium 13.0 H* D, Troponin I 0.03 I & O for Last 24 hours: Intake & Output 10/18/24 10/19/24 10/20/24 10/21/24 23:59 23:59 23:59 23:59 Weight 87.09 kg Constitutional Constitutional: no acute distress *Routine HEENT Exam Head: Present normocephalic Eye: Present EOMI and PERRL ENT: Present mucous membranes moist *Routine Neck Exam Neck: Present supple; Absent lymphadenopathy *Routine Respiratory Exam Respiratory: Present CTA bilaterally *Routine Cardiovascular Exam Cardiovascular: Present RRR *Routine Abdominal Exam Abdominal: Present soft and normoactive bowel sounds; Absent tenderness *Routine Rectal Exam Rectal:: deferred *Routine Genitalia Exam Genitalia:: deferred *Routine Extremities Exam Extremities: Absent cyanosis, clubbing or edema *Routine Skin Exam Skin: Present warm; Absent rash *Routine Neurological Exam Neurological: Present alert and oriented X3 Assessment and Plan *Assessment and plan (1) Acute kidney injury superimposed on CKD: Status: Acute Category: Medical Code(s): N17.9 - Acute kidney failure, unspecified; N18.9 - Chronic kidney disease, unspecified (2) Acute hyponatremia: Status: Acute Category: Medical Code(s): E87.1 - Hypo-osmolality and hyponatremia (3) Acute hyperkalemia: Status: Acute Category: Medical Code(s): E87.5 - Hyperkalemia (4) Diarrhea: Status: Acute Category: Medical Code(s): R19.7 - Diarrhea, unspecified (5) Metabolic acidosis: Status: Acute Category: Medical Code(s): E87.20 - Acidosis, unspecified Plan Addendum: Patient with worsening renal failure and metabolic acidosis this morning on repeat labs. Creatinine of 2.6, anion gap of 18, CO2 of 11, potassium of 6.2. Pringle catheter in place draining clear yellow urine approximately 600 cc out at this time. Given patient's continued metabolic acidosis and renal failure it is felt that she would benefit from transfer for higher level of care for nephrology services. Patient is stable at this time but given concern for worsening renal failure that could lead to worsening cardiac abnormalities it was felt that patient would require transfer now before being seen by overnight attending. She also is noted to have significant opacities on CXR and elevated BNP of 13,500. In this case, risk outweighs benefits to await dayshift attending to evaluate patient. She will be transferred to [facility]. Spoke with nephrology at [facility] who graciously agrees that patient would benefit from services. She will be transferred to ICU. Patient is currently hemodynamically stable. Vital signs stable. Medications to be given prior to transfer include insulin, D50, Kayexalate, Lasix 20 mg and bicarbonate infusion. #Abdominal pain #Diarrhea History of gastric bypass with recurrent issues with abdominal pain and poor p.o. intake. Reports diarrhea for 2 days with nausea vomiting and dry heaving. CT abdomen pelvis without abnormality. 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 Recent scan as of 08/2023 with celiac trunk and mesenteric arteries widely patent. Patient does not have a early satiety or weight loss at this time. No peritonitis noted. Abdomen not tender upon palpation except for right lower quadrant. Lactic acid of 1.7. Low suspicion for mesenteric ischemia but also low threshold to rescan for CTA. PCR diarrhea panel pending #Acute renal failure superimposed on CKD stage IIIb #Metabolic acidosis Likely partially volume depletion given severe diarrhea and poor p.o. intake Creatinine of 2.7 with prior baseline around 2. Initial CO2 of 11, with BUN of 52 and GFR of 17. Renal function improving after IV fluid ministration emergency department. CO2 has decreased to 6. Will place Pringle catheter for strict intake and output. Patient did have some urine in the bladder at the time of bladder scan. Unable to place patient on bicarb drip given sodium of 125. Will add oral bicarb and intermittently dose with IV push sodium bicarb if required. Continue serial labs to monitor renal function #Hyperkalemia 2/2 hemoconcentration and volume depletion Potassium level modulated with calcium, D50 and insulin in the emergency department Repeat K of 5.3 No T wave abnormalities noted on EKG. Monitor on telemetry Serial Labs #Hyponatremia Likely secondary to hypovolemic hyponatremia given GI loss. Monitor on serial labs. Continue fluids. avoid raising sodium levels greater than 6 8 mill equivalents in 24 hours. #Hypercalcemia Initial calcium of 9 but was given calcium gluconate in the emergency department with increase to 13 Modulate with IV fluids Monitor cardiac rhythm on telemetry #Cough Patient reports cough and chest tightness with inspiration. Reports allergies have been significant this week. Will obtain chest x-ray and respiratory pathogen panel
--- NOTE | 2024-10-21 23:51 | PC.NURSE ---
Patient arrived to[facility] via stretcher from ED at 23:33.
[2024-10-21 23:55] VITALS: BP 136/46; PULSE 67; RESP 22; O2SAT 93; BMI 34.1
[2024-10-22 00:05] VITALS: PULSE 55
[2024-10-22 00:58] LABS: Microscopic, Urine URINE MICROSCOPIC (MICROSCOPIC)
[2024-10-22 01:00] LABS: Adenovirus,PCR Not Detected (NotDetected); Bordetella Pertussis Not Detected (NotDetected); Chlamydophila Pneumoniae, PCR Not Detected (NotDetected); Coronavirus 19, PCR Not Detected (NotDetected); Coronavirus 229E Not Detected (NotDetected); Coronavirus NL63 Not Detected (NotDetected); Coronavirus OC43 Not Detected (NotDetected); Coronovirus HKU1,PCR Not Detected (NotDetected); Human Metapneumovirus Not Detected (NotDetected); Influenza A, PCR Not Detected (NotDetected); Influenza AH1, 2009 Not Detected (NotDetected); Influenza AH1, PCR Not Detected (NotDetected); Influenza AH3,PCR Not Detected (NotDetected); Influenza B, PCR Not Detected (NotDetected); Mycoplasma Pneumoniae, PCR Not Detected (NotDetected); Parainfluenza 1, PCR Not Detected (NotDetected); Parainfluenza 2, PCR Not Detected (NotDetected); Parainfluenza 3, PCR Not Detected (NotDetected); Parainfluenza 4, PCR Not Detected (NotDetected); Respiratory Syncytial Virus Not Detected (NotDetected); Rhinovirus/Enterovirus Not Detected (NotDetected)
[2024-10-22 01:05] LABS: Appearance,Urine CLEAR (Clear); Bilirubin,Urine Negative (Negative); Blood, Urine Negative (Negative); Color,Urine YELLOW (Yellow); Glucose,Urine (UA) Negative (Negative); Ketones,Urine Negative (Negative); Leukocyte Esterase,Urine Negative (Negative); Nitrate,Urine Negative (Negative); PH,Urine 5.5 (5.0-8.5); Protein,Urine Negative (Negative); Specific Gravity, Urine 1.015 (1.005-1.030); Urobilinogen,Urine 0.2 EU/dl (0.2)
--- NOTE | 2024-10-22 01:12 | PC.NURSE ---
medication rec was completed top the best we could with documentation pt brought in. Pt brought a tub of her meds from home she takes. Her oxygen on her med list wouldn't allow us to reconcile. Pt's meds are locked under cabinet in her room.
[2024-10-22 01:22] LABS: Reflex Lactic Add Lactic Reflex
[2024-10-22] MEDS: TRAZODONE 50MG TABLET 50 MG PO (01:34)
[2024-10-22 02:33] LABS: Bacteria,Urine 1+ /lpf; WBC,Urine Occasional #/hpf (0-3)
[2024-10-22 03:20] LABS: Lactate Venous 1.4 mmol/L (0.4-2.0); VBG Base Excess -13.6 mmol/L (-2.4-2.3); VBG HCO3 12.2 mmol/L (23-30); VBG PH 7.34 mmol/L (7.31-7.41); VBG Total CO2 12.9 mmol/L (23-27)
[2024-10-22 03:26] LABS: Albumin Level 3.2 g/dl (3.5-5.0); Chloride 103 mmol/L (98-107); Sodium 126 mmol/L (136-145)
[2024-10-22 03:28] LABS: Blood Urea Nitrogen 52 mg/dl (7-17); Creatinine Clearance Estimated 23 mL/min (50-200); Estimated Glomerular Filt Rate 18 ml/min (>60); GFR (African American) 21 ML/MIN (>60)
[2024-10-22 03:29] LABS: Alanine Aminotransferase 15 U/L (12-78); Albumin/Globulin Ratio 1.2 (1.1-1.8); Alkaline Phosphatase 55 U/L (38-126); Anion Gap 18.2 mEq/L (5-15); Aspartate Amino Transferase 25 U/L (14-36); Bilirubin,Total 0.2 mg/dl (0.2-1.3); Calcium 8.7 mg/dl (8.4-10.2); Carbon Dioxide 11 mmol/L (22.0-30.0); Globulin 2.7 g/dL (1.3-3.2); Glucose 104 mg/dl (74-100); Magnesium 1.8 mg/dl (1.6-2.3); Phosphorous 5.2 mg/dl (2.5-4.5); Total Protein,Serum 5.9 g/dl (6.3-8.2)
[2024-10-22 03:30] LABS: Potassium 6.2 mmoL/L (3.5-5.1)
[2024-10-22 03:41] LABS: Troponin I 0.07 ng/ml (0.00-0.034)
[2024-10-22 03:45] LABS: NT Pro Brain Natriuretic Pep. 13500 pg/mL (0-450)
[2024-10-22 03:53] LABS: Procalcitonin 0.141 ng/mL (0.0-2.0)
[2024-10-22 03:54] VITALS: BP 126/44; PULSE 46; RESP 14; TEMP 36.5; O2SAT 97; BMI 34.1
[2024-10-22] MEDS: FUROSEMIDE 20 MG/2 ML VIAL IV (04:16)
[2024-10-22] MEDS: SODIUM POLY SULFON 15GM/60ML ORAL.SUSP 15 GM PO (04:19)
[2024-10-22] MEDS: DEXTROSE 50% 50ML SYRINGE (CRASH CART) 50 ML IVP (04:19)
[2024-10-22] MEDS: SODIUM BICARBONATE 150 MEQ in DEXTROSE 5 % IN WATER 1,000 ML 100 MEQ IV (04:23)
[2024-10-22] MEDS: INSULIN HUMAN REGULAR 100 UNITS/ML 10ML VIAL 8 UNIT IVP (04:31)
[2024-10-22 04:40] LABS: POC Glucose,Bedside 121 (70-110)
--- NOTE | 2024-10-22 04:53 | P.DS_ITS ---
<Statement entered by Vicente Schilling MD - 10/24/24 22:25> Transfer to high-level care at [facility] with dialysis capabilities for KACY with severe electrolyte abnormalities. General Admission date:: 10/21/24 Discharge date: 10/22/24 HPI HPI HPI: This is an 84-year-old female with a past medical history of PAD, hypothyroidism, hypertension, hyperlipidemia, CKD stage III, history of gastric bypass who presents emergency department today with complaints of profuse diarrhea. She also endorses right lower quadrant pain and poor p.o. intake. Daughter at the bedside reports that her mother was up all night with diarrhea and now is too weak to walk. She typically lives alone and cares for herself. Patient denies any fever. Denies any urinary symptoms. Denies chest pain but does endorse cough with pain with inspiration. Emergency department workup notable for pH of 7.22 with a CO2 of 27 on VBG, sodium of 125, potassium of 6.0. CO2 11, anion gap of 16, creatinine of 2.7, lactic of 1.7, troponin of 0.04. CT abdomen pelvis with contrast without acute abnormality. EKG on admission notable for sinus bradycardia with heart rate of 58. Cardiology was consulted and recommends correction of electrolytes and acidosis. Given her acute renal failure, diarrheal illness she will be admitted to the hospital service. Hospital Course Hospital Course Hospital Course: This is an 84-year-old female that was initially admitted from the ER for acute renal failure likely secondary to volume depletion given recent diarrheal illness. She initially presented to the emergency department with complaints of diarrhea and weakness. Was found to have acute renal failure superimposed on CKD with creatinine of 2.7, hyperkalemia with a potassium of 6.0, CO2 of 11, sodium 125. She initially was given IV fluids for volume resuscitation with slight improvement in laboratory evaluation. She also was complaining of cough and shortness of breath. Chest x-ray obtained as well as BNP which was found to be elevated. Volume overload noted on exam with cardiomegaly. Morning labs obtained with worsening renal failure with a creatinine of 2.6, potassium of 6.2, CO2 of 11. Pringle catheter in place draining clear yellow urine. Given her continued metabolic acidosis, hyperkalemia, hyponatremia it was felt she would benefit from nephrology services. Given we do not have nephrology services, she was transferred to [facility]. Prior to transfer insulin, dextrose, Kayexalate and bicarbonate infusion initiated as well as Lasix IV. At the time of this discharge summary, she is in stable condition. Oxygenating well on 2 L nasal cannula. Vital signs stable. Patient updated with plan of care and is in agreement. She is discharged in guarded condition., Exam Data for Last 24 hours Vital signs and Labs for Last 24 Hours: Temp Pulse Resp BP Pulse Ox O2 Del Method O2 Flow Rate 97.7 F 46 L 14 126/44 L 97 Nasal Cannula 2 10/22/24 03:54 10/22/24 03:54 10/22/24 03:54 10/22/24 03:54 10/22/24 03:54 10/22/24 03:54 10/22/24 03:54 Laboratory Results - last 24 hr 10/21/24 20:46: WBC 11.0 H, RBC 3.37 L, Hgb 8.5 L, Hct 27.6 L, MCV 81.9, MCH 25.2 L, MCHC 30.8 L, RDW 16.8, Plt Count 409, MPV 11.5 H, Neut % (Auto) 62.8, Lymph % (Auto) 28.6, [place] % (Auto) 6.5, Eos % (Auto) 0.5, Baso % (Auto) 0.5, Neut # (Auto) 6.9, Lymph # (Auto) 3.1, [place] # (Auto) 0.7, Eos # (Auto) 0.1, Baso # (Auto) 0.1, Sodium 125 L, Potassium 6.0 H, Chloride 104, Carbon Dioxide 11 L, Anion Gap 16.0 H, BUN 52 H, Creatinine 2.70 H, Estimated Creat Clear 21, Estimated GFR 17 L*, Est GFR ( Amer) 20 L, Glucose 154 H, Calcium 9.8, Total Bilirubin 0.5, AST 28, ALT 17, Alkaline Phosphatase 57, Troponin I 0.04 H, Total Protein 6.8, Albumin 4.0, Globulin 2.8, Albumin/Globulin Ratio 1.4, Lipase 94 10/21/24 21:12: VBG pH 7.22 L, VBG pCO2 27.8 L, VBG pO2 76.5 H, VBG HCO3 11.2 L, VBG Total CO2 12.0 L, VBG O2 Saturation 91.1 H, VBG Base Excess -16.5 L, VBG Lactic Acid 3.9 H 10/21/24 21:21: Lactate 1.7 10/21/24 22:40: Urine Color Yellow, Urine Appearance Clear, Urine pH 5.5, Ur Specific [place] 1.015, Urine Protein Negative, Urine Glucose (UA) Negative, Urine Ketones Negative, Urine Blood Negative, Urine Nitrate Negative, Urine Bilirubin Negative, Urine Urobilinogen 0.2, Ur Leukocyte Esterase Negative, Urine RBC None, Urine WBC Occasional, Ur Squamous Epith Cells 3-5, Urine Bacteria 1+ 10/21/24 23:00: Chlamy pneumoniae PCR Not detected, Adenovirus (PCR) Not detected, B. pertussis DNA (PCR) Not detected, Coronavirus OC43 (PCR) Not detected, Coronavirus HKU1 (PCR) Not detected, Coronavirus 229E (PCR) Not detected, SARS-CoV-2 (PCR) Not detected, Coronavirus NL63 (PCR) Not detected, Human Metapneumovir PCR Not detected, Influenza A (H1) PCR Not detected, Influ A (H1N1/09) PCR Not detected, Influenza A (H3) PCR Not detected, Influenza Type A (PCR) Not detected, Influenza Type B (PCR) Not detected, M. pneumoniae (PCR) Not detected, Parainfluenza 1 (PCR) Not detected, Parainfluenza 2 (PCR) Not detected, Parainfluenza 3 (PCR) Not detected, Parainfluenza 4 (PCR) Not detected, RSV (PCR) Not detected, Entero/Rhino (PCR) Not detected 10/21/24 23:04: Sodium 125 L, Potassium 5.3 H, Chloride 112 H, Carbon Dioxide 6 L* D, Anion Gap 12.3, BUN 42 H, Creatinine 2.00 H D, Estimated Creat Clear 29, Estimated GFR 24 L, Est GFR ( Amer) 29 L D, Glucose 132 H, Calcium 13.0 H* D, Troponin I 0.03 10/22/24 03:00: VBG pH 7.34, VBG pCO2 23.0 L, VBG pO2 147.0 H, VBG HCO3 12.2 L, VBG Total CO2 12.9 L, VBG O2 Saturation 97.0 H, VBG Base Excess -13.6 L, VBG Lactic Acid 1.4 10/22/24 03:05: Sodium 126 L, Potassium 6.2 H*, Chloride 103, Carbon Dioxide 11 L, Anion Gap 18.2 H, BUN 52 H, Creatinine 2.60 H D, Estimated Creat Clear 23, Estimated GFR 18 L*, Est GFR ( Amer) 21 L D, Glucose 104 H D, Lactate 1.0, Calcium 8.7, Phosphorus 5.2 H, Magnesium 1.8, Total Bilirubin 0.2, AST 25, ALT 15, Alkaline Phosphatase 55, Troponin I 0.07 H, NT-Pro-B Natriuret Pep 15665 H, Total Protein 5.9 L, Albumin 3.2 L D, Globulin 2.7, Albumin/Globulin Ratio 1.2, Procalcitonin 0.141, TSH 10.80 H 10/22/24 04:33: POC Glucose 121 H I & O for Last 24 hours: Intake & Output 10/19/24 10/20/24 10/21/24 10/22/24 23:59 23:59 23:59 23:59 Output Total 400 / 800 400 / 400 Balance -400 / -800 -400 / -400 Weight 90.718 kg 90.718 kg Constitutional Constitutional: no acute distress *Routine HEENT Exam Head: Present normocephalic Eye: Present EOMI and PERRL ENT: Present mucous membranes moist *Routine Neck Exam Neck: Present supple; Absent lymphadenopathy *Routine Respiratory Exam Respiratory: Present wheezes and crackles *Routine Cardiovascular Exam Cardiovascular: Present RRR *Routine Abdominal Exam Abdominal: Present soft and normoactive bowel sounds; Absent tenderness *Routine Extremities Exam Extremities: Absent cyanosis, clubbing or edema *Routine Skin Exam Skin: Present warm; Absent rash *Routine Neurological Exam Neurological: Present alert and oriented X3 Results Data Completed and Pending Labs on day of discharge: Labs from last 24 hours 10/22/24 10/22/24 10/22/24 04:33 03:05 03:00 WBC RBC Hgb Hct MCV MCH MCHC RDW Plt Count MPV Neut % (Auto) Lymph % (Auto) [place] % (Auto) Eos % (Auto) Baso % (Auto) Neut # (Auto) Lymph # (Auto) [place] # (Auto) Eos # (Auto) Baso # (Auto) VBG pH 7.34 VBG pCO2 23.0 L VBG pO2 147.0 H VBG HCO3 12.2 L VBG Total CO2 12.9 L VBG O2 Saturation 97.0 H VBG Base Excess -13.6 L VBG Lactic Acid 1.4 Sodium 126 L Potassium 6.2 H* Chloride 103 Carbon Dioxide 11 L Anion Gap 18.2 H BUN 52 H Creatinine 2.60 H D Estimated Creat Clear 23 Estimated GFR 18 L* Est GFR ( Amer) 21 L D Glucose 104 H D POC Glucose 121 H Lactate 1.0 Calcium 8.7 Phosphorus 5.2 H Magnesium 1.8 Total Bilirubin 0.2 AST 25 ALT 15 Alkaline Phosphatase 55 Troponin I 0.07 H NT-Pro-B Natriuret Pep 61031 H Total Protein 5.9 L Albumin 3.2 L D Globulin 2.7 Albumin/Globulin Ratio 1.2 Lipase Procalcitonin 0.141 TSH 10.80 H Urine Color Urine Appearance Urine pH Ur Specific [place] Urine Protein Urine Glucose (UA) Urine Ketones Urine Blood Urine Nitrate Urine Bilirubin Urine Urobilinogen Ur Leukocyte Esterase Urine RBC Urine WBC Ur Squamous Epith Cells Urine Bacteria Chlamy pneumoniae PCR Adenovirus (PCR) B. pertussis DNA (PCR) Coronavirus OC43 (PCR) Coronavirus HKU1 (PCR) Coronavirus 229E (PCR) SARS-CoV-2 (PCR) Coronavirus NL63 (PCR) Human Metapneumovir PCR Influenza A (H1) PCR Influ A (H1N1/09) PCR Influenza A (H3) PCR Influenza Type A (PCR) Influenza Type B (PCR) M. pneumoniae (PCR) Parainfluenza 1 (PCR) Parainfluenza 2 (PCR) Parainfluenza 3 (PCR) Parainfluenza 4 (PCR) RSV (PCR) Entero/Rhino (PCR) 10/21/24 10/21/24 10/21/24 23:04 23:00 22:40 WBC RBC Hgb Hct MCV MCH MCHC RDW Plt Count MPV Neut % (Auto) Lymph % (Auto) [place] % (Auto) Eos % (Auto) Baso % (Auto) Neut # (Auto) Lymph # (Auto) [place] # (Auto) Eos # (Auto) Baso # (Auto) VBG pH VBG pCO2 VBG pO2 VBG HCO3 VBG Total CO2 VBG O2 Saturation VBG Base Excess VBG Lactic Acid Sodium 125 L Potassium 5.3 H Chloride 112 H Carbon Dioxide 6 L* D Anion Gap 12.3 BUN 42 H Creatinine 2.00 H D Estimated Creat Clear 29 Estimated GFR 24 L Est GFR ( Amer) 29 L D Glucose 132 H POC Glucose Lactate Calcium 13.0 H* D Phosphorus Magnesium Total Bilirubin AST ALT Alkaline Phosphatase Troponin I 0.03 NT-Pro-B Natriuret Pep Total Protein Albumin Globulin Albumin/Globulin Ratio Lipase Procalcitonin TSH Urine Color Yellow Urine Appearance Clear Urine pH 5.5 Ur Specific [place] 1.015 Urine Protein Negative Urine Glucose (UA) Negative Urine Ketones Negative Urine Blood Negative Urine Nitrate Negative Urine Bilirubin Negative Urine Urobilinogen 0.2 Ur Leukocyte Esterase Negative Urine RBC None Urine WBC Occasional Ur Squamous Epith Cells 3-5 Urine Bacteria 1+ Chlamy pneumoniae PCR Not detected Adenovirus (PCR) Not detected B. pertussis DNA (PCR) Not detected Coronavirus OC43 (PCR) Not detected Coronavirus HKU1 (PCR) Not detected Coronavirus 229E (PCR) Not detected SARS-CoV-2 (PCR) Not detected Coronavirus NL63 (PCR) Not detected Human Metapneumovir PCR Not detected Influenza A (H1) PCR Not detected Influ A (H1N1/09) PCR Not detected Influenza A (H3) PCR Not detected Influenza Type A (PCR) Not detected Influenza Type B (PCR) Not detected M. pneumoniae (PCR) Not detected Parainfluenza 1 (PCR) Not detected Parainfluenza 2 (PCR) Not detected Parainfluenza 3 (PCR) Not detected Parainfluenza 4 (PCR) Not detected RSV (PCR) Not detected Entero/Rhino (PCR) Not detected 10/21/24 10/21/24 10/21/24 21:21 21:12 20:46 WBC 11.0 H RBC 3.37 L Hgb 8.5 L Hct 27.6 L MCV 81.9 MCH 25.2 L MCHC 30.8 L RDW 16.8 Plt Count 409 MPV 11.5 H Neut % (Auto) 62.8 Lymph % (Auto) 28.6 [place] % (Auto) 6.5 Eos % (Auto) 0.5 Baso % (Auto) 0.5 Neut # (Auto) 6.9 Lymph # (Auto) 3.1 [place] # (Auto) 0.7 Eos # (Auto) 0.1 Baso # (Auto) 0.1 VBG pH 7.22 L VBG pCO2 27.8 L VBG pO2 76.5 H VBG HCO3 11.2 L VBG Total CO2 12.0 L VBG O2 Saturation 91.1 H VBG Base Excess -16.5 L VBG Lactic Acid 3.9 H Sodium 125 L Potassium 6.0 H Chloride 104 Carbon Dioxide 11 L Anion Gap 16.0 H BUN 52 H Creatinine 2.70 H Estimated Creat Clear 21 Estimated GFR 17 L* Est GFR ( Amer) 20 L Glucose 154 H POC Glucose Lactate 1.7 Calcium 9.8 Phosphorus Magnesium Total Bilirubin 0.5 AST 28 ALT 17 Alkaline Phosphatase 57 Troponin I 0.04 H NT-Pro-B Natriuret Pep Total Protein 6.8 Albumin 4.0 Globulin 2.8 Albumin/Globulin Ratio 1.4 Lipase 94 Procalcitonin TSH Urine Color Urine Appearance Urine pH Ur Specific [place] Urine Protein Urine Glucose (UA) Urine Ketones Urine Blood Urine Nitrate Urine Bilirubin Urine Urobilinogen Ur Leukocyte Esterase Urine RBC Urine WBC Ur Squamous Epith Cells Urine Bacteria Chlamy pneumoniae PCR Adenovirus (PCR) B. pertussis DNA (PCR) Coronavirus OC43 (PCR) Coronavirus HKU1 (PCR) Coronavirus 229E (PCR) SARS-CoV-2 (PCR) Coronavirus NL63 (PCR) Human Metapneumovir PCR Influenza A (H1) PCR Influ A (H1N1/09) PCR Influenza A (H3) PCR Influenza Type A (PCR) Influenza Type B (PCR) M. pneumoniae (PCR) Parainfluenza 1 (PCR) Parainfluenza 2 (PCR) Parainfluenza 3 (PCR) Parainfluenza 4 (PCR) RSV (PCR) Entero/Rhino (PCR) DS: Diagnosis Discharge Diagnosis (1) Acute kidney injury superimposed on CKD: Status: Acute Code(s): N17.9 - Acute kidney failure, unspecified; N18.9 - Chronic kidney disease, unspecified (2) Acute hyponatremia: Status: Acute Code(s): E87.1 - Hypo-osmolality and hyponatremia (3) Acute hyperkalemia: Status: Acute Code(s): E87.5 - Hyperkalemia (4) Diarrhea: Status: Acute Code(s): R19.7 - Diarrhea, unspecified (5) Metabolic acidosis: Status: Acute Code(s): E87.20 - Acidosis, unspecified Meds Home Medications and Allergies New Prescriptions to Start Prescriptions: Allergies Allergy/AdvReac Type Severity Reaction Status Date / Time lisinopril Allergy Intermediate cough Verified 10/04/24 13:37 atenolol (ATENOLOL) Allergy Unknown ASTHMA Verified 10/04/24 13:37 ATTACK ciprofloxacin (From CIPRO) Allergy Unknown SWELLING/RA Verified 10/04/24 13:37 SH codeine (CODEINE) Allergy Unknown I-RASH Verified 10/04/24 13:37 cortisone (CORTISONE) Allergy Unknown I-HIVES/SOB Verified 10/04/24 13:37 erythromycin base Allergy Unknown I-RASH Verified 10/04/24 13:37 (ERYTHROMYCIN BASE) hydrocodone (From LORTAB) Allergy Unknown NA-NAUSEA Verified 10/04/24 13:37 latex (LATEX) Allergy Unknown I-HIVES Verified 10/04/24 13:37 loratadine (LORATADINE) Allergy Unknown SWELLING Verified 10/04/24 13:37 metronidazole (From FLAGYL) Allergy Unknown NA-DIZZINES Verified 10/04/24 13:37 S minocycline (From MINOCIN) Allergy Unknown I-RASH Verified 10/04/24 13:37 Penicillins (PENICILLINS) Allergy Unknown I-RASH Verified 10/04/24 13:37 Sulfa (Sulfonamide Allergy Unknown I-RASH Verified 10/04/24 13:37 Antibiotics) (SULFA (SULFONAMIDE ANTIBIOTICS)) carvedilol Allergy Difficulty Verified 10/04/24 13:37 Breathing metoprolol Allergy Difficulty Verified 10/04/24 13:37 Breathing fluticasone (From Advair AdvReac Fever Verified 10/04/24 13:37 Diskus) levofloxacin AdvReac Unknown Verified 10/04/24 13:37 allergy reaction salmeterol (From Advair AdvReac Fever Verified 10/04/24 13:37 Diskus) Discharge Plan Disposition Patient Disposition: Xfer Short-Term Hosp Condition: Fair Discharge Order Discharge Orders: Discharge Order (Routine); Ordered 10/22/24 Ordered By: Jeanine Priest Follow up Plan Prescriptions/Medication Reconciliation: Discontinued aspirin [Adult Low Dose Aspirin] 81 mg tablet,delayed release (DR/EC) 81 mg PO DAILY atorvastatin [Lipitor] 40 mg tablet 40 mg PO DAILY losartan [Cozaar] 50 mg tablet 50 mg PO DAILY spironolactone 25 mg tablet 25 mg PO BID ascorbic acid (vitamin C) 500 mg capsule 500 mg PO Q6H triamcinolone acetonide 0.1 % cream 1 applic topical BID Qty: 15 1RF azelastine 137 mcg (0.1 %) aerosol,spray 2 spray intranasal HS PRN (Reason: Dry Nasal Passages) Rx Instructions: administer into each nostril Creon 36,000-114,000- 180,000 unit capsule,delayed release(DR/EC) 1 cap PO DAILY Rx Instructions: take 1 with snack take 2 with meal (DME) oxygen-air delivery systems Device See Rx Instructions .Route Rx Instructions: 2 liters at night [place] Saline 0.65 % aerosol,spray 1 spray intranasal TID Qty: 50 3RF Dulera 100-5 mcg/actuation HFA aerosol inhaler 2 puff inhalation BID 90 Days Qty: 13 2RF albuterol sulfate 90 mcg/actuation HFA aerosol inhaler 2 puff inhalation Q4HP PRN (Reason: shortness of breath or wheezing) Qty: 8.5 5RF meclizine 25 mg tablet 25 mg PO TID PRN (Reason: dizziness) Qty: 90 0RF fenofibrate micronized 67 mg capsule 67 mg PO DAILY Qty: 90 3RF methenamine hippurate 1 gram tablet 1 g PO BID Qty: 180 1RF (DME) nebulizers [Aeroneb Go Nebulizer] Misc See Rx Instructions .Route Rx Instructions: As directed furosemide 20 mg tablet 40 mg PO QAM trazodone 50 mg tablet 100 mg PO HS levothyroxine 75 mcg tablet 75 mcg PO DAILY ursodiol 300 mg capsule 600 mg PO DAILY magnesium 500 mg Tablet 500 mg PO DAILY nitroglycerin 0.4 mg tablet, sublingual 0.4 mg sublingual Q5MINP PRN (Reason: chest pain) Rx Instructions: do not exceed 3 doses per episode. 1 SL tab every 5min x 3 doses. If chest pain not resolved after 3rd dose, then call 911. pantoprazole [Protonix] 40 mg tablet,delayed release (DR/EC) 40 mg PO DAILY Problem Reconciliation Problems Reviewed?: Yes Patient Discharge Instructions Stand Alone Forms: Transfer Record Patient Instructions: DI for Hyperkalemia Print Language: [place] Providers Primary Care Provider: Karley Messer Admit Provider: Vicente Schilling Attending Provider: Vicente Schilling
--- NOTE | 2024-10-22 05:13 | PC.NURSE ---
Patient left floor with EMS at 05:11.
--- NOTE | 2024-10-22 05:29 | PC.NURSE ---
Pt transferred to [facility]. ox4. At home medications sent with pt. High potassium meds given, see MAR. Pringle cath placed. Urine specimen sent to lab. Resp panel taken. Pt went to [facility] with IV per request. D/c summary sent with EMS.
== END 2024-10-22 05:10 | disposition short-term general hospital (02) ==
LOC: ER 22:54 → 2ND 23:23
PROVIDERS: Nurse Practitioner Acute Care; Admitting Provider Student in an Organized Health Care Education/Training Program; Emergency Provider Emergency Medicine; PCP Nurse Practitioner Family; Visit Provider Student in an Organized Health Care Education/Training Program
DX: N17.9 Acute kidney failure, unspecified (principal); I12.9 Hypertensive chronic kidney disease with stage 1 through stage 4 chronic kidney disease, or unspecified chronic kidney disease; N18.32 Chronic kidney disease, stage 3b; E87.1 Hypo-osmolality and hyponatremia; E83.52 Hypercalcemia; E87.5 Hyperkalemia; R19.7 Diarrhea, unspecified; E87.20 Acidosis, unspecified; R05.9 Cough, unspecified; I73.9 Peripheral vascular disease, unspecified; E03.9 Hypothyroidism, unspecified; E78.5 Hyperlipidemia, unspecified; R10.31 Right lower quadrant pain; R00.1 Bradycardia, unspecified; E66.812 Obesity, class 2; Z68.34 Body mass index [BMI] 34.0-34.9, adult; Z87.891 Personal history of nicotine dependence; Z98.84 Bariatric surgery status; Z79.82 Long term (current) use of aspirin; Z79.899 Other long term (current) drug therapy; Z79.890 Hormone replacement therapy; Z88.8 Allergy status to other drugs, medicaments and biological substances; Z88.1 Allergy status to other antibiotic agents; Z88.5 Allergy status to narcotic agent; Z88.2 Allergy status to sulfonamides; Z88.0 Allergy status to penicillin; Z88.3 Allergy status to other anti-infective agents; Z82.49 Family history of ischemic heart disease and other diseases of the circulatory system; Z83.3 Family history of diabetes mellitus; Z83.42 Family history of familial hypercholesterolemia; Z82.2 Family history of deafness and hearing loss; Z82.3 Family history of stroke; Z80.41 Family history of malignant neoplasm of ovary; Z80.0 Family history of malignant neoplasm of digestive organs; Z90.49 Acquired absence of other specified parts of digestive tract; Z79.51 Long term (current) use of inhaled steroids
CPT/HCPCS: 0223U; 51702; 71045; 74177; 80048; 80053; 81001; 82803; 82962; 83605; 83690; 83735; 83880; 84100; 84145; 84443; 84484; 85025; 87633; 93005; 96361; 96365; 96375; 96376; G0378; J0612; J1938; J2270; J2405; J7030; J7070; Q9967

== ENCOUNTER 2024-11-23 08:30 | Day surgery (SDC) | payer MEDICARE, SELFPAY ==
--- NOTE | 2024-11-23 08:34 | EXP.PM.HP ---
History of Present Illness *Admission Date: 11/23/24 *Reason for visit:: Intrathecal refill; DDD *History of present illness: Same [facility] Disclaimer: The information contained in this section may have been updated after the patient was seen, as this information can be updated by other users. Medical History (Updated 11/23/24 @ 08:50 by Tammie Amado APRN) Degenerative disc disease, lumbar Edema of right lower extremity Hospital discharge follow-up Lumbar radiculopathy Acute UTI BMI greater than 30 Internal derangement of left knee Nausea Recurrent pancreatitis Complex sleep apnea syndrome ZACH treated with BiPAP Epistaxis, recurrent Recurrent UTI Class 2 obesity Acute kidney injury superimposed on CKD Acute pancreatitis Rotator cuff arthropathy of left shoulder Adjustment disorder Vaginal stenosis Abdominal pain Dyspnea COPD (chronic obstructive pulmonary disease) CKD (chronic kidney disease) stage 3, GFR 30-59 ml/min History of pancreatitis Chronic low back pain HLD (hyperlipidemia) Acute cystitis without hematuria Constipation Hypothyroid HTN (hypertension) Coronary artery disease Myocardial infarct Hyponatremia Generalized weakness Fatigue Loss of appetite Body aches Atrophic vaginitis Urge incontinence Renal failure Injury of left hip Fall Left hip pain UTI due to Klebsiella species Tubular adenoma of colon 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 Functional abdominal pain syndrome Chronic neck pain Internal carotid artery stenosis Severe sleep apnea Neck pain Obesity CAD in [place] artery Pulmonary hypertension History of sleep apnea Nocturnal hypoxia Dyspnea on exertion History of smoking 30 or more pack years Asthma Dizziness Left-sided weakness History of stent insertion of renal artery Renal artery stenosis Diastolic heart failure Right-sided congestive heart failure History of sleep apnea History of asthma Pleural effusion, bilateral Pneumonia Acute respiratory failure with hypoxia Hypoxemia Bradycardia Spinal stenosis of lumbar region Cough UTI (urinary tract infection) Vaginal yeast infection Hypertensive urgency Chronic UTI Insomnia Vitamin D deficiency Overactive bladder Excessive cerumen in both ear canals Persistent dry cough Asthma Osteoporosis Interstitial cystitis Renal failure Diverticulosis GERD (gastroesophageal reflux disease) Heart disease History of asthma Dilatation of bladder DDD (degenerative disc disease) Back pain Gallstones UTI (urinary tract infection) Left lower lobe pneumonia Atelectasis Renal insufficiency Anemia CAD (coronary artery disease) Benign paroxysmal vertigo Surgical History H/O gastric bypass History of renal stent H/O: hysterectomy Hx of cataract removal with insertion of prosthetic lens Hx of colonoscopy Status post rotator cuff surgery H/O heart artery stent S/P cardiac catheterization History of biopsy of bladder H/O breast biopsy History of dilation and curettage Previous back surgery Hx of cholecystectomy Family History Father Coronary artery disease Hyperlipidemia Hypertension Stroke Mother Coronary artery disease Heart attack Hyperlipidemia Hypertension Brother Cancer hepatic Coronary artery disease Diabetes Heart attack Hyperlipidemia Hypertension Stroke Sister Cancer ovarian Hyperlipidemia Hypertension Diabetes Son Coronary artery disease Heart attack Daughter Hyperlipidemia Hypertension Social History (Updated 11/13/24 @ 10:05 by JEREMY Kasper) Smoking Status: Former smoker years smoked: 30 second hand exposure: No alcohol intake: never substance use type: denies use current occupational status: retired Travel in the last 8 weeks?: None household members: none housing: house current occupational exposures/hazards: No caffeine: Yes Have you lived/traveled outside US in past 30 days?: No Contact w/someone who lives/traveled outside US past 30 days?: No Exposure to someone with infectious disease in past 14 days?: No Do you have a fever (greater than 100.4 F or 38 C)?: No Have you tested positive for COVID-19?: No Exposed to someone with COVID-19 in past 14 days?: No Do you have a sore throat?: No Do you have a cough?: No Do you have any weakness?: No Do you have any diarrhea?: No Are you experiencing any unusual bleeding?: No Do you have any muscle aches/pain?: No Do you have any abdominal pain?: No Are you experiencing loss of taste or smell?: No Other Medical History Have you received the Flu Vaccine for this season: No Have you received the Pneumonia Vaccine: Yes Review of Systems Review of Systems Review of systems:: pertinent systems reviewed and negative unless documented below Review of systems (narrative): Review of Systems: General: No recent weight changes, no fever, no sleep disturbances Respiratory: No cough, no shortness of air, no recurring pulmonary infections Cardiovascular/peripheral vascular: No chest pain, no palpitations, no edema, no shortness of breath Gastrointestinal: No new onset incontinence, normal bowel movements reported Genitourinary: No new onset incontinence Musculoskeletal: Chronic pain Psychiatric: [Normal mood/affect] Neurological: [Denies weakness in extremities], [denies balance issues] Meds Home Medications and Allergies Home Medications ?Medication ?Instructions ?Recorded ?Confirmed ?Type acetaminophen 500 mg capsule 500 mg PO Q6H PRN 11/13/24 11/13/24 History albuterol sulfate 90 mcg/actuation 2 puff inhalation QID 11/13/24 11/13/24 History aerosol inhaler (Ventolin HFA) aspirin 81 mg tablet,delayed 81 mg PO DAILY 11/13/24 11/13/24 History release (Adult Low Dose Aspirin) atorvastatin 40 mg tablet (Lipitor) 40 mg PO DAILY 11/13/24 11/13/24 History azelastine 137 mcg (0.1 %) nasal 2 spray intranasal BID 11/13/24 11/13/24 History spray cholecalciferol (vitamin D3) 25 25 mcg PO DAILY 11/13/24 11/13/24 History mcg (1,000 unit) capsule conjugated estrogens 0.625 mg 0.625 mg PO DAILY 11/13/24 11/13/24 History tablet (Premarin) fenofibrate micronized 67 mg 67 mg PO DAILY 11/13/24 11/13/24 History capsule fluticasone fur. 100 mcg-umeclid 1 inh inhalation DAILY 11/13/24 11/13/24 History 62.5 mcg-vilant 25 mcg inhalat.powder (Trelegy Ellipta) furosemide 20 mg tablet (Lasix) 20 mg PO DAILY 11/13/24 11/13/24 History ipratropium 0.5 mg-albuterol 3 mg 3 ml inhalation QID PRN 11/13/24 11/13/24 History (2.5 mg base)/3 mL nebulization soln levothyroxine 75 mcg tablet 75 mcg PO DAILY 11/13/24 11/13/24 History (Synthroid) fsahlw-ktuxfmij-odsvfes cap PO 11/13/24 11/13/24 History 36,000-114,000-180,000 unit capsule,delay rel (Creon) methenamine hippurate 1 gram tablet 1 g PO BID 11/13/24 11/13/24 History mometasone-formoterol HFA 100 2 puff inhalation BID 11/13/24 11/13/24 History mcg-5 mcg/actuation aerosol inhaler (Dulera) nifedipine 60 mg tablet,extended 60 mg PO DAILY 11/13/24 11/13/24 History release ondansetron 4 mg disintegrating 4 mg PO Q6H 11/13/24 11/13/24 History tablet plecanatide 3 mg tablet (Trulance) 3 mg PO DAILY 11/13/24 11/13/24 History trazodone 100 mg tablet 100 mg PO DAILY 11/13/24 11/13/24 History ursodiol 300 mg capsule 300 mg PO DAILY 11/13/24 11/13/24 History pantoprazole 40 mg tablet,delayed See Rx Instructions .Route 11/15/24 Rx release .COMPLEX #90 tabs New Prescriptions to Start Prescriptions: Allergies Allergy/AdvReac Type Severity Reaction Status Date / Time lisinopril Allergy Intermediate cough Verified 11/13/24 10:04 atenolol (ATENOLOL) Allergy Unknown ASTHMA Verified 11/13/24 10:04 ATTACK ciprofloxacin (From CIPRO) Allergy Unknown SWELLING/RA Verified 11/13/24 10:04 SH codeine (CODEINE) Allergy Unknown I-RASH Verified 11/13/24 10:04 cortisone (CORTISONE) Allergy Unknown I-HIVES/SOB Verified 11/13/24 10:04 erythromycin base Allergy Unknown I-RASH Verified 11/13/24 10:04 (ERYTHROMYCIN BASE) hydrocodone (From LORTAB) Allergy Unknown NA-NAUSEA Verified 11/13/24 10:04 latex (LATEX) Allergy Unknown I-HIVES Verified 11/13/24 10:04 loratadine (LORATADINE) Allergy Unknown SWELLING Verified 11/13/24 10:04 metronidazole (From FLAGYL) Allergy Unknown NA-DIZZINES Verified 11/13/24 10:04 S minocycline (From MINOCIN) Allergy Unknown I-RASH Verified 11/13/24 10:04 Penicillins (PENICILLINS) Allergy Unknown I-RASH Verified 11/13/24 10:04 Sulfa (Sulfonamide Allergy Unknown I-RASH Verified 11/13/24 10:04 Antibiotics) (SULFA (SULFONAMIDE ANTIBIOTICS)) carvedilol Allergy Difficulty Verified 11/13/24 10:04 Breathing metoprolol Allergy Difficulty Verified 11/13/24 10:04 Breathing fluticasone (From Advair AdvReac Fever Verified 11/13/24 10:04 Diskus) levofloxacin AdvReac Unknown Verified 11/13/24 10:04 allergy reaction salmeterol (From Advair AdvReac Fever Verified 11/13/24 10:04 Diskus) Exam Constitutional Constitutional: no acute distress *Routine HEENT Exam Head: Present normocephalic and atraumatic Eye: Present PERRL ENT: Present mucous membranes moist *Routine Neck Exam Neck: Present supple *Routine Respiratory Exam Respiratory: Present CTA bilaterally *Routine Cardiovascular Exam Cardiovascular: Present RRR *Routine Abdominal Exam Abdominal: Present soft *Routine Rectal Exam Rectal:: deferred *Routine Genitalia Exam Genitalia:: deferred Routine Back/Spine/Pelvis Exam Back/Spine: Present pain with flexion *Routine Skin Exam Skin: Present intact, dry and warm *Routine Neurological Exam Neurological: Present alert and oriented X3 Routine Psychiatric Exam Psychiatric: Present normal affect and normal thought process Assessment and Plan *Assessment and plan (1) Degenerative disc disease, lumbar: Status: Acute Category: Medical Code(s): M51.369 - Other intervertebral disc degeneration, lumbar region without mention of lumbar back pain or lower extremity pain Plan Patient has been instructed to contact the clinic with any concerns before the next appointment. Dr. Helms has reviewed this note and agrees with this plan of care. This note was dictated using voice recognition software and make contain errors or omissions. All injections are used with Lidocaine, Bupivacaine and dexamethasone. Occasionally urine drug screen is needed to verify patient's compliance with our office pain contract. This is ordered based off specific treatments related to chronic pain with the potential to abuse certain medications.
[2024-11-23 08:40] VITALS: BP 144/66; PULSE 82; RESP 18; O2SAT 100; BMI 34.7
--- NOTE | 2024-11-23 08:50 | P.PCN_ITS ---
Procedure Date: 11/23/24 Time: 08:55 Anesthesiologist:: Tammie Amado APRN Complications:: None Pre-procedure Diagnosis:: Degenerative disc disease of lumbar spine with lumbar radiculopathy symptoms, chronic pain syndrome Post-procedure Diagnosis:: Same Indications for Procedure:: Patient is a pleasant 84-year-old female who presents today for intrathecal refill and reprogram. Today she rates her pain an 8 out of 10. Patient does state that she has had a lot going on from her last appointment. Patient states she has been hospitalized with multiple things including CHF, pulmonary edema, kidney failure and pneumonia. Patient states that she was here at [facility] and then shipped to [place] for the ic designer custom there. She states that she ended up being ICU a week there and then transferring back to [place] for rehab for another week. She is at home currently but is still trying to recover from all of this. Patient does have multiple appointments coming up between cardiology and her ic designer custom. Patient is currently managed with morphine 1 mg/mL with 0.1689 mg/day. She denies any side effects but would like an increase. Her Doni has been reviewed and is appropriate. Physical Exam: General: Alert and oriented x3, no acute distress, pleasant and cooperative Lungs: Respirations even and unlabored, symmetrical chest expansion Eyes: PERRL Musculoskeletal: Flexion and extension of lumbar [spine] somewhat guarded secondary to pain, [antalgic gait noted] Neurological: Speech clear, no gross sensory deficit Procedure Details:: Informed consent was obtained and the risk and benefits of the procedure were explained to the patient. The patient had noninvasive monitoring placed including noninvasive blood pressure cuff and pulse oximeter. Patient's pump was interrogated. The area over the pump was cleansed with chlorhexidine as a cleansing solution. In sterile fashion the pump was accessed with a 22-gauge needle. Approximately 7 mls of the pump solution was removed and discarded appropriately. The pump was then refilled with 20 mL's of morphine 1 mg/mL. The needle was withdrawn and a bandage was placed over the puncture site. The infusion rate was reprogrammed and increased 10% to morphine 0.1859 mg/day. The patient tolerated well with no complication. Plan and Disposition:: Patient tolerated the procedure well with no complications and was discharged neurologically intact. Patient will return to clinic on or before their next intrathecal refill date. We will see the patient back in the clinic at the next intrathecal refill. Patient has been instructed to contact the clinic with any concerns before the next appointment. Dr. Helms has reviewed this note and agrees with this plan of care. This note was dictated using voice recognition software and make contain errors or omissions. -- It Is medically necessary for this patient to continue to have their intrathecal pump refilled at regular intervals. This patient had an intrathecal pain pump implanted after meeting criteria of chronic intractable pain for greater than 3 months and failing conservative treatments. Patient has committed and been compliant to the treatment plan and all planned follow up care. Since implantation of the intrathecal pain pump, the patient has had decreased pain and been more functional. Oral medications have been reduced including intake of oral opioids. Patient continues to do well with intrathecal therapy with decrease in pain symptoms and increase in functional status. Stopping intrathecal medications can lead to life threatening withdrawal, seizures, cardiac arrest, severe pain, and possible . Pumps that are not refilled at regular intervals can be damages and cause and need for replacement. We continually titrate dose and concentration to optimize pain relief and function. We are limited in concentration for certain drugs to safely deliver medications through the pump and stay within the recommendations from the Polyanalgesic Consensus Committee Guidelines. Depending on dose and concentration these pumps may need to be refilled sooner than 3 months as we titrate. A UDS is needed to verify patient's compliance with our office pain contract. This is ordered based off specific treatments related to chronic pain with the potential to abuse certain medications.
[2024-11-23 08:55] VITALS: BP 143/49; PULSE 85; RESP 18; O2SAT 96
[2024-11-23 09:07] VITALS: BP 127/65; PULSE 78; RESP 18; O2SAT 96
== END 2024-11-23 09:07 | disposition home or self-care (01) ==
PROVIDERS: PCP Nurse Practitioner Family; Visit Provider Nurse Practitioner Family
DX: Z45.1 Encounter for adjustment and management of infusion pump; M51.16 Intervertebral disc disorders with radiculopathy, lumbar region; G89.4 Chronic pain syndrome; F43.20 Adjustment disorder, unspecified; D64.9 Anemia, unspecified; H81.10 Benign paroxysmal vertigo, unspecified ear; I25.10 Atherosclerotic heart disease of native coronary artery without angina pectoris; I13.0 Hypertensive heart and chronic kidney disease with heart failure and stage 1 through stage 4 chronic kidney disease, or unspecified chronic kidney disease; N18.30 Chronic kidney disease, stage 3 unspecified; I50.9 Heart failure, unspecified; I1A.0 Resistant hypertension; J44.89 Other specified chronic obstructive pulmonary disease; E66.812 Obesity, class 2; G47.39 Other sleep apnea; Z68.34 Body mass index [BMI] 34.0-34.9, adult; K21.9 Gastro-esophageal reflux disease without esophagitis; E78.5 Hyperlipidemia, unspecified; E03.9 Hypothyroidism, unspecified; M81.0 Age-related osteoporosis without current pathological fracture; Z87.891 Personal history of nicotine dependence; Z88.0 Allergy status to penicillin; Z88.8 Allergy status to other drugs, medicaments and biological substances; Z88.1 Allergy status to other antibiotic agents; Z91.040 Latex allergy status; Z79.82 Long term (current) use of aspirin; Z79.891 Long term (current) use of opiate analgesic; Z79.899 Other long term (current) drug therapy
CPT/HCPCS: 62370

== ENCOUNTER 2024-12-04 08:44 | Outpatient (CLI) | payer MEDICARE, SELFPAY ==
--- OUTSIDE RECORDS SUMMARY | 2024-12-04 08:46 | XMS_ITS ---
Author Name Auto Generated, Auto Generated Organization [facility] ator Address [address] [place] [address] Phone [phone] Care Team Providers Care Chemical Production Technician Name Role Phone Bob New Unavailable [phone] Functional Status No Results Mental Status No Results Allergies and Intolerances Name Onset Date Reaction Severity adhesive tape (Allergy) TueOct 29 14:02:00 EDT 2024 Sulfa (Sulfonamide Antibiotics) (Allergy) Tue 14:02:00 EDT 2024 Penicillins (Allergy) TueOct 29 14:02:00 EDT 20 25 Lortab (Allergy) TueOct 29 14:02:00 EDT 2024 erythromycin (Allergy) TueOct 29 14:02:00 EDT 2 025 cortisone (Allergy) TueOct 29 14:02:00 EDT 2024 Claritin-D 12 Hour (Allergy) TueOct 29 14:02:00 EDT 2024 Cipro (Allergy) TueOct 29 14:02:00 EDT 2024 atenolol (Allergy) TueOct 29 14:02:00 EDT 2024 acetaminophen-codeine (Allergy) TueOct 29 14:02 :00 EDT 2024 Encounters Program Name Primary Diagnosis Admission Date/Time Dis charge Date/Time null Sat Oct 27 20:00:00 EDT 2024 Problems No Known Problems Social History Social History Observation Description Date Smoking Status Unknown if ever smoked Sun Oct 01 00:00:00 EDT 2024 Sex Female TueSeptember 24 00:00 :00 EDT 1940 Reason for Referral
--- OUTSIDE RECORDS SUMMARY | 2024-12-04 08:46 | XMS_ITS ---
Author Name Auto Generated, Auto Generated Organization [facility] at[facility] Address [address] [place] [address] Phone [phone] Care Team Providers Care Chiller Tender Name Role Phone Bob New Unavailable [phone] Functional Status No Results Mental Status No [...]
--- OUTSIDE RECORDS SUMMARY | 2024-12-04 08:47 | XMS_ITS | Encounter Summary ---
Author Organization [facility] Address [address] [place] [address] Care Team Providers Care Obstetrician Name Role Phone Anton Butts MD Primary Care Provider [phone] Encounter Details Date Type Department Care Team ([facility] st Contact Info) Description 11/21/2024 Telephone [facility] [address] [facility] [address] [address] Tammy Campbell Social History Tobacco Use Types Packs/Day Years [...] encounter Miscellaneous Notes * Telephone Encounter - Tammy Campbell - 11/21/2024 10:08 AM EDT Pt called about getting her appointment moved back to [facility]. She requested to be seen byDr. Read but he doesn't have any openings at the moment. I told her I can schedule her with Kristyn Sawyer our nurse practitioner and she agreed. I have her scheduled for December 07 and I will send herthe lab order. documented in this encounter Plan of Treatment Upcoming Encounters Date Type Department Care Team (Late st Contact Info) Description 12/07/2024 8:20 AM EDT Office Visit [facility] [address] [place] [address] Kristyn Sawyer, SUPERVISOR HOT DIP TINNING [address] [address] documented as of this encounter Visit [...] documented as of this encounter Care Teams Obstetrician Relationship Specialty Start Date End Date Anton Butts MD [address] [place] [address] [address] [place] [address] PCP - General 09/12/20 documented as of this encounter
--- OUTSIDE RECORDS SUMMARY | 2024-12-04 08:47 | XMS_ITS | Encounter Summary ---
Author Organization [facility] Address [address] [place] [address] Care Team Providers Care Continuing Education Dean Name Role Phone Anton Butts MD Primary Care Provider [phone] Encounter Details Date Type Department Care Team (Latest Contact Info) Description 12/03/2024 Travel Social History Tobacco Use Types Packs/Day [...] Description 12/07/2024 8:20 AM EDT Office Visit [facility] [address] [place] [address] Kristyn Sawyer, [employer] [address] [address] documented as of this encounter [...] documented as of this encounter Care Teams Continuing Education Dean Relationship Specialty Start Date End Date Anton Butts MD [address] [place] [address] [address] [place] [address] PCP - General 09/12/20 documented as of this encounter
--- OUTSIDE RECORDS SUMMARY | 2024-12-04 08:47 | XMS_ITS | Clinical Summary ---
Author Organization [employer] ([place], [place], [place], [place]) Address [address] [place] [address] Care Team Providers Care Tape Cutting Machine Operator Name Role Phone Unavailable Primary [...]
--- OUTSIDE RECORDS SUMMARY | 2024-12-04 08:47 | XMS_ITS | Encounter Summary ---
Author Organization [facility] Address [address] [place] [address] Care Team Providers Care Scruff Worker Name Role Phone Anton Butts MD Primary Care Provider [phone] Encounter Details Date Type Department Care Team ([facility] st Contact Info) Description 11/13/2024 Telephone [facility] [address] [facility], [address] [place] [address] Rusty Hylton MD [address] [place] [address] Social History Tobacco Use Types Packs/Day Years [...] encounter Miscellaneous Notes * Telephone Encounter - Charmaine Randall - 11/13/2024 10:59 AM EDT Patient Phone Message Reason for Call: Pt is asking if can switch her care to the [place] location. Best contact number and optimal time of day to reach caller: [phone] Note: Please do not reply to this [...] 12/07/2024 8:20 AM EDT Office Visit [facility] [address] [place] [address] Kristyn Sawyer, [employer] INTERMODAL TRUCK DRIVER [address] [address] documented as of this encounter [...] documented as of this encounter Care Teams Scruff Worker Relationship Specialty Start Date End Date Anton Butts MD [address] [place] [address] [address] [place] [address] PCP - General 09/12/20 documented as of this encounter
--- OUTSIDE RECORDS SUMMARY | 2024-12-04 08:47 | XMS_ITS | Encounter Summary ---
Author Organization [facility] Address [address] [facility] [place] [address] Care Team Providers Care Coffee Blender Name Role Phone Anton Butts MD Primary Care Provider [phone] Encounter Details Date Type Department Care Team ([facility] st Contact Info) Description 11/14/2024 Telephone [facility]abolism [address] [facility], [address] [place] [address] Rusty Hylton MD [address] [place] [address] Social History Tobacco Use Types [...] encounter Miscellaneous Notes * Telephone Encounter - Henny Rodrigez - 11/15/2024 12:40 PM EDT Reached out to [facility] staff to schedule patient with Dr. Read in person. * Telephone Encounter - Henny Rodrigez - 11/15/2024 12:35 PM EDT Thanks, I'll pass this along to the patient. * Telephone Encounter - Ariane Ann - 11/14/2024 9:10 AM EDT Clinical Concern/Question Reason for Call: Pt was hospitalized at [facility] and was told that Dr Read sees pts at [facility]. Could pt be seen there? Pt is trying to get her care closer to home. Best contact number: [phone] (mobile) Optimal time of day to reach caller: Today before noon and then late afternoon. All day 11/15/24 Additional comments/information from caller: None Note: Please do not reply to this message. Follow-up communication and further actions as a result of this message need to be communicated with the patient directly, if the patient is not active onMyChart. If the patient is active on MyChart, they will receive notification of the communication/outcome via [employer] documented in this encounter Plan of Treatment Upcoming Encounters Date Type Department Care Team (Late st Contact Info) Description 12/07/2024 8:20 AM EDT Office Visit [facility] [address] [place] [address] Kristyn Sawyer, MAKEUP ARTIST [address] [address] documented as of this encounter Visit Diagnoses Not on filedocumented in this encounter Additional Health Concerns Assessment Noted Time PHQ-9 Depression Total Score: 0 09/14/19 7:37 AM EDT A fall risk assessment has been complete d for the patient 09/13/2024 7:39 AM EDT A Body Mass Index follow-up plan has been documented for the patient 09/13/2024 8:11 AM EDT documented as of this encounter Care Teams Coffee Blender Relationship Specialty Start Date End Date Anton Butts MD [address] [place] [address] [address] [place] [address] PCP - General 09/12/20 documented as of this encounter
--- OUTSIDE RECORDS SUMMARY | 2024-12-04 08:47 | XMS_ITS | Referral Summary ---
Author Organization [employer] ([place], [place], [place], [place]) Address [address] [place] [address] Care Team Providers Care Brewmaster Name Role Phone Unavailable Primary Care Provider [...]
--- OUTSIDE RECORDS SUMMARY | 2024-12-04 08:48 | XMS_ITS | Clinical Summary ---
Author Organization [facility] Address [address] [place] [address] Care Team Providers Care Store Consultant Name Role Phone Anton Butts MD Primary Care Provider [phone] Allergies Active Allergy Reactions Criticality Noted Date [...] Encounters Date Type Department Care Team Description 12/03/2024 Travel 11/21/2024 Telephone [place] [address] [place] [phone] Tammy Campbell 11/14/2024 Telephone [facility] Nephrology, Bone & Mineral Metabolism [address] , [address] [place] [address] Rusty Hylton MD 11/13/[address] [place]ph[facility], Bone & Mineral Metabolism [address] , [address] [place] [address] Rusty Hylton MD 09/13/2024 8:00 AM EDT Office Visit [facility] Bone & Mineral Metabolism [address] , [address] [place] [address] Rusty Hylton MD CKD (chronic kidney disease) stage 4, GFR 15-29 ml/min ([facility]) (Primary Dx); Age-related osteoporosis without current pathological fracture; Essential hypertension 09/12/[address] [place] Bone & Mineral Metabolism [address] , [address] [place] [address] Magdalene Dash LPN 09/10/2024 Travel 09/03/2024 Telephone [facility] Bone & Mineral Metabolism [address] [facility] [address], [address] [place] [address] Magdalene Dash LPN from Last 3 Months Family History Medical History Relation Name Comments Cancer Brother 1 Eric Honeycutt Kidney disease Brother 1 Eric Honeycutt Hypertension Brother 2 Brody Honeycutt Cardiac disorder Father Vicente Honeycutt Hypertension Father Vicente Honeycutt Cardiac disorder Mother Michelle honeycutt Hyperlipidemia Mother Michelle honeycutt Hypertension Mother Michelle honeycutt Anemia Sister 2 Jojo Mayuri Cancer Sister 2 Jojo Messina Relation Name [...] Description 12/07/2024 8:20 AM EDT [facility] [address] [place] [address] Kristyn Sawyer, VENDING MACHINE COIN COLLECTOR [address] [address] Health Maintenance Due Date Last Done Comments UKY-Bone Density Scan 1940 UKY-Medicare Annual Wellness (AWV) 1940 UKY-Infant/Child/Adol SDOH Screenings 1940 UKY- SDOH Screenings 1958 UKY-Adult SDOH Screenings 1958 UKY-DTaP,Tdap,and Td Vaccines (1 - Tdap) 09/25/1959 UKY-Zoster Vaccines (1 of 2) 1990 [id number] Vaccine (8 - Pfizer risk 2023- season) 2024 02/21/2024, 02/01/2023, 01/13/2022, Additional history exists UKY-Influenza Vaccine (#1) 12/31/202402/20, 01/11/2023, 01/20/2021, Additional history exists UKY-Depression Screening 09/13/2025 025, 09/13/2024, 01/05/2024 UKY-Hepatitis A Vaccines Aged Out 07/10/2001, 12/31 No longer eligible based on patient's age to complete this topic UKY-Pneumococcal Vaccine: 50+ Years Completed 01/11/2023, 02/05/2016 UKY-RSV Vaccine: 60+ Years or Completed 04/21/2023 UKY-Obesity Intervention Completed 025, 05/17/2024, 01/05/2024, Additional [...] patient's age to complete this topic Insurance [place] [id number] [facility] MEDICARE Care Teams Store Consultant Relationship Specialty Start Date End Date Anton Butts MD [address] [place] [address] #1 #1 [place] [address] PCP - General 09/12/20
--- OUTSIDE RECORDS SUMMARY | 2024-12-04 08:48 | XMS_ITS | Clinical Summary ---
Author Organization [facility] Address [address] [place] [address] Care Team Providers Care Pitch Filler Name Role Phone Provider, No Known Primary Care Provider Unavail able Allergies Active Allergy Reactions Criticality Noted Date Comments Aspirin Other (See Comments) 10/30/2019 325mg- liver and kidney problems Ok to take 81mg Atenolol Shortness Of Breath High 12/11/2019 Azithromycin Rash Low 11/05/2015 Ciprofloxacin Rash Low 11/05/2015 Cortisone Itching 11/05/2015 Metronidazole Rash Low 11/05/2015 Latex Rash Low 12/11/2019 And Blisters Lisinopril Cough 10/04/2022 Hydrocodone-Acetaminoph en Shortness Of Breath High 10/30/2019 Asthma attack Other Rash Low 10/29/2015 Claritin D - orbital edema BETA-Blockers, pruritus and exacerbation of asthma Penicillins Hives,Itching 10/29/2015 Sulfa Antibiotics Rash Low 11/05/2015 Acetaminophen Itching 11/05/2015 #3 Medications fenofibrate (TRICOR) 145 MG tablet Take 1 tablet by mouth Daily. Active verapamil (CALAN) 120 MG tablet Take 1 tablet by mouth Daily. Active aspirin 81 MG EC tablet Take 1 tablet by mouth Daily. Active levothyroxine (SYNTHROID, LEVOTHROID) 75 MCG tablet Take 1 tablet by mouth Daily. Active nitroglycerin (NITROSTAT) 0.[address] 1 tablet under the tongue Every 5 (Five) Minutes As Needed for Chest Pain. Take no more than 3 doses in 15 minutes. Active pantoprazole (PROTONIX) 40 MG EC tablet Take 1 tablet by mouth Daily. Active traMADol (ULTRAM) 50 MG tablet Take 1 tablet by mouth Every 6 (Six) Hours As Needed for Moderate Pain. Active traZODone (DESYREL) 50 MG tablet Take 2 tablets by mouth Every Night. Active pravastatin (PRAVACHOL) 40 MG tablet Take 1 tablet by mouth Daily. Active ursodiol (ACTIGALL) 300 MG capsule 2 capsules Daily. 03/05/2021 Active cholecalciferol (VITAMIN D3) 25 MCG (1000 UT) tablet Take 1 tablet by mouth Daily. Active cephalexin (KEFLEX) 500 MG capsule Take 1 capsule by mouth 2 (Two) Times a Day. 03/01/2022 Active B Complex Vitamins (Vitamin B Complex) tablet Take by mouth Daily. Active CALCIUM PO Take by mouth. Active acetaminophen (TYLENOL) 500 MG tablet Take 1 tablet by mouth Every 6 (Six) Hours As Needed for Mild Pain. Active carvedilol (COREG) 25 MG tablet Take 1 tablet by mouth 2 (Two) Times a Day. 180 tablet 3 10/04/2022 Active losartan (Cozaar) 50 MG tablet Take 1 tablet by mouth 2 (Two) Times a Day. 180 tablet 3 10/04/2022 Active azithromycin (ZITHROMAX) 250 MG tablet Daily. 10/05/2022 Active nitrofurantoin, macrocrystal-mo nohydrate, (MACROBID) 100 MG capsule 2 (Two) Times a Day. 09/28/2022 Active terazosin (HYTRIN) 2 MG capsule Take 1 capsule by mouth Every Night. 90 capsule 3 10/13/2022 Active Active Problems Problem Noted Date Diagnosed Date Superior mesenteric artery stenosis 02/19/2020 Left upper quadrant abdominal pain 10/30/2019 Transaminitis 10/30/2019 Coronary artery disease invo lving [place] coronary artery of [place] heart without angina pectoris 11/05/2015 Hyperlipemia 11/05/2015 CAD (coronary artery disease) 10/29/2015 Overview (10/29/2015): a. Inferior [place], October 1998. b. Left heart catheterization with placement of a 3.5 x 32 mm CONSTANCE stent to the RCA, 11/08/1998. c. Cardiolite GXT for dyspnea, 07/23/2008: i. Exercise duration of 5 minutes and 25 seconds with a hypertensive response to exercise but no evidence of ischemia. LVEF of 70%. 2. Carotid artery disease: a. Carotid duplex, 10/12/2010: A 50% to 69% SARY and LICA stenosis, unchanged from 2009 and 2010. Palpitations 10/29/2015 Overview (10/29/2015): Occasional isolated PAC s and PVC s by Holter monitor, March 1999. Essential hypertension 10/29/2015 Dyslipidemia 10/29/2015 Overview (10/29/2015): Hypothyroidism 10/29/2015 Asthma 10/29/2015 Diverticulosis 10/29/2015 Chronic neck pain 10/29/2015 Obesity 10/29/2015 Family History Medical History Relation Name Comments Heart attack Brother 1 Eric Honeycutt Heart disease Brother 1 Eric Honeycutt Heart attack Brother 3 Brody Honeycutt Heart attack Father Vicente gunderson Heart disease Father Vicente gunderson Asthma Mother Michelle Honeycutt Heart attack Mother Michelle Honeycutt Heart disease Mother Michelle Honeycutt Heart disease Sister 1 Ariane Martinez Diabetes Sister 2 Heart attack Son Relation Name Status Comments Brother 1 Eric Honeycutt Alive Brother 2 (Age 28) killed in an explosion Brother 3 Brody Honeycutt Father Vicente gunderson Mother Michelle Honeycutt Sister 1 Ariane Martinez Sister 2 Alive Son (Age 44) Social History Tobacco Use Types Packs/Day Years Used Date Smoking Tobacco: Former Cigarettes 1 30 0 [birth year]/02/1949 - 05/02/1979 Smokeless Tobacco: Never Alcohol Use Standard Drinks/Week Comments No 0 (1 standard drink = 0.6 oz pur e alcohol) Abuse Screen Answer Date Recorded Unsafe at Home or Work/School Not on file Feels Threatened by Someone? Not on file 12/2022 Does Anyone Keep You from Co ntacting Others or Doint Things Outside the Home? Not on file 02/07/2023 Physical Sign of Abuse Present Not on file 1 Housing Stability Answer Date Recorded Current Living Arrangements Not on file 12/2022 Potentially Unsafe Housing Conditions Not on wendy e 02/07/2023 Family and Community Support Answer Dick e Recorded Help with Day-to-Day Activities Not on file 02/07/2023 Lonely or Isolated Not on file 02/07/2023 Employment Answer Date Recorded Do you want help finding or keeping work or a kelly b? Not on file 02/07/2023 Disabilities Answer Date Recorded Concentrating, Remembering, or Making Decisions Difficulty Not on file 02/07/2023 Doing Errands Independently Difficulty Not on fi le 02/07/2023 Education Answer Date Recorded Help with school or training? 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 on file Not on file Last Filed Vital Signs Vital Sign Reading Time Taken Comments Blood Pressure 148/80 10/07/2022 12:05 PM EDT Pulse 73 10/07/2022 12:05 PM EDT Temperature 36 C (96.8 F) 02/24/2021 9:28 AM EDT Respiratory Rate 16 03/19/2020 10:01 AM EST Oxygen Saturation 95% 10/07/2022 12:05 PM EDT Inhaled Oxygen Concentration - - Weight 83.3 kg (183 lb 9.6 oz) 03/10/2022 10:48 AM EST Height 157.5 cm (5' 2 ) 10/07/2022 12:05 PM EDT Body Mass Index 33.58 03/10/2022 10:48 AM EST Plan of Treatment Health Maintenance Due Date Last Done Comments DXA SCAN 1940 LIPID PANEL 1940 TDAP/TD VACCINES (1 - Tdap) 09/25/1959 ZOSTER VACCINE (1 of 2) 1990 RSV Vaccine - Adults (1 - 1- dose 75+ series) 09/25/2015 ANNUAL WELLNESS VISIT 11/10/2016 Pneumococcal Vaccine 50+ (2 of 2 - PCV) 02/04/2017 02/05/2016 COVID-19 Vaccine (2023-2 5 season) 2024 01/13/2022, 06/25/2021, 12/15/2020, Additional history exists INFLUENZA VACCINE 01/30/2025 01/20/2021, , 12/27/2016, Additional history exists Insurance [employer] PPO Care Teams Pitch Filler Relationship Specialty Start Date End Date Provider, No Known [facility] [place] [address] PCP - General 10/07/22
--- OUTSIDE RECORDS SUMMARY | 2024-12-04 08:48 | XMS_ITS | Encounter Summary ---
Author Organization [facility] Address [address] [place] [phone] Care Team Providers Care Pull Worker Name Role Phone Provider, No Known Primary Care Provider Unavail able Encounter Details Date Type Department Care Team ([facility] st Contact Info) Description 02/01/2023 Telephone [facility] CARDIOLOGY [address] [facility] [address] [place] [phone] Magdalene Garcia MD [address] [facility] [address] [place] [address] Social History Tobacco Use Types Packs/Day Years Used Date Smoking Tobacco: Former Cigarettes 1 30 0 05/02/1949 - 05/02/1979 Smokeless Tobacco: Never Alcohol Use Standard Drinks/Week Comments No 0 (1 standard drink = 0.6 oz pur e alcohol) Comments Unknown Sex and Gender Information Value Date Recorded Sex Assigned at Not on file Legal Sex Female 11:24 AM EDT Gender Identity Not on file Sexual Orientation Not on file 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
[2024-12-04 10:20] LABS: Hematocrit 37.2 % (37.0-47.0); Hemoglobin 11.3 g/dL (12.2-16.2); Mean Corpuscular HGB Conc 30.4 g/dL (31.8-35.4); Mean Corpuscular Hemoglobin 26.5 pg (27.0-31.2); Mean Corpuscular Volume 87.1 fl (81-99); Nucleated Red Blood Cells % 0 %; Platelet Count 330 K/mm3 (142-424); Red Blood Count 4.27 M/mm3 (4.20-5.40); Red Cell Distribution Width-SD 54.2 fL; White Blood Count 10.2 K/mm3 (4.8-10.8)
[2024-12-04 10:42] LABS: Albumin Level 4.1 g/dl (3.5-5.0); Anion Gap 13.9 mEq/L (5-15); Blood Urea Nitrogen 70 mg/dl (7-17); Calcium 9.9 mg/dl (8.4-10.2); Carbon Dioxide 23 mmol/L (22.0-30.0); Chloride 100 mmol/L (98-107); Creatinine,Serum 2.30 mg/dl (0.52-1.04); Estimated Glomerular Filt Rate 20 ml/min (>60); GFR (African American) 24 ML/MIN (>60); Glucose 97 mg/dl (74-100); Phosphorous 4.5 mg/dl (2.5-4.5); Potassium 4.9 mmoL/L (3.5-5.1); Sodium 132 mmol/L (136-145)
[2024-12-04 11:01] LABS: 25-OH Vitamin D, Total 57.7 ng/mL (30-100)
[2024-12-04 11:30] LABS: Iron 118 ug/dL (37-170)
[2024-12-04 11:40] LABS: Total Iron Binding Capacity 372 ug/dL (265-497)
[2024-12-04 12:06] LABS: Ferritin 48.5 ng/ml (11.1-264)
== END 2024-12-04 23:59 | disposition home or self-care (01) ==
LOC: LAB 08:45
PROVIDERS: PCP Nurse Practitioner Family; Visit Provider Internal Medicine Nephrology
DX: I12.9 Hypertensive chronic kidney disease with stage 1 through stage 4 chronic kidney disease, or unspecified chronic kidney disease (principal); N18.4 Chronic kidney disease, stage 4 (severe); M81.0 Age-related osteoporosis without current pathological fracture
CPT/HCPCS: 36415; 80069; 82306; 82728; 83540; 83550; 83970; 85027

== ENCOUNTER 2025-02-25 14:32 | Outpatient (CLI) | payer MEDICARE, SELFPAY ==
[2025-02-25 15:00] VITALS: PULSE 90; PULSE 92
[2025-02-25] MEDS: ALBUTEROL 0.083% 2.5 MG/3 ML NEB IH (15:00)
--- OUTSIDE RECORDS SUMMARY | 2025-02-25 15:22 | XMS_ITS | Clinical Summary ---
Author Organization [facility] Address [address] [place] [address] Care Team Providers Care Medical Physics Researcher Name Role Phone Provider, No Known Primary [...] Transaminitis 10/30/2019 Coronary artery disease invo lving [place] coronary artery of [place] heart without angina pectoris 11/05/2015 Hyperlipemia 11/05/2015 CAD (coronary artery disease) 10/29/2015 Overview (10/29/2015): a. Inferior [place], October 1998. b. Left heart catheterization with [...] Relation Name Comments Heart attack Brother 1 rEic Honeycutt Heart disease Brother 1 Eric Honeycutt [...] (2 of 2 - PCV) 02/04/2017 02/05/2016 INFLUENZA VACCINE 11/30/2024 01/20/2021, , 12/27/2016, Additional history exists COVID-19 Vaccine ( - 2024-2 6 season) 2024 01/13/2022, 06/25/2021, 12/15/2020, Additional history exists Insurance [employer] PPO Care Teams Medical Physics Researcher Relationship Specialty Start Date End Date Provider, No Known [facility] [place] [address] PCP - General 10/07/22
--- OUTSIDE RECORDS SUMMARY | 2025-02-25 15:22 | XMS_ITS | Encounter Summary ---
Author Organization [facility] Address [address] [place] [phone] Care Team Providers Care Hospitality Director Name Role Phone Provider, No Known Primary Care Provider Unavail able Encounter Details Date Type Department Care Team ([facility] st Contact Info) Description 02/01/2023 Telephone [facility] CARDIOLOGY [address] [facility] [address] [place] [phone] Magdalene Garcia MD [address] [facility] [address] [place] [address] Social History Tobacco Use Types Packs/Day Years [...] on filedocumented in this encounter Care Teams Hospitality Director Relationship Specialty Start Date End Date Provider, [place] [address] PCP - General 10/07/22 documented as of this encounter
--- OUTSIDE RECORDS SUMMARY | 2025-02-25 15:22 | XMS_ITS | Referral Summary ---
Author Organization [facility] ([place], [place], [place], [place]) Address [address] [place] [address] Care Team Providers Care Web Applications Architect Name Role Phone Unavailable Primary Care Provider [...]
--- OUTSIDE RECORDS SUMMARY | 2025-02-25 15:22 | XMS_ITS | Clinical Summary ---
Author Organization [facility] ([place], [place], [place], [place]) Address [address] [place] [address] Care Team Providers Care Party Demonstrator Name Role Phone Unavailable Primary Care Provider [...]
--- OUTSIDE RECORDS SUMMARY | 2025-02-25 15:23 | XMS_ITS | Clinical Summary ---
Author Organization [facility] Address [address] [facility] [place] [address] Care Team Providers Care Air Operations Manager Name Role Phone Anton Butts MD Primary Care Provider [phone] Allergies Active Allergy Reactions Criticality Noted Date [...] capsule TAKE 2 CAPSULE Daily 1 Active pravastatin (Pravachol) 40 MG tablet 1 [...] 108 (90 Base) MCG/ACT inhaler 3 Active traZODone (Desyrel) 50 MG tablet Take 1 tablet (50 mg) by mouth every night. 3 Active atorvastatin (Lipitor) 40 MG tablet 3 Active losartan (Cozaar) 50 MG tablet 3 Active nitroglycerin (Nitrostat) 0.4 MG SL tablet 3 Active Ketamine HCl (KETALAR IJ) 5% cream [...] Encounters Date Type Department Care Team Description 12/07/2024 8:20 AM EDT Office Visit [facility] [address] [place] [address] Kristyn Sawyer APRN CKD (chronic kidney disease) stage 4, GFR 15-29 ml/min ([facility]) (Primary Dx); Age-related osteoporosis without current pathological fracture; Essential hypertension; At risk for fluid and electrolyte imbalance; Chronic kidney disease-mineral and bone disorder 12/07/2024 Travel 12/03/2024 Travel from Last 3 Months Immunizations Immunization Administration Dates Next Due Hep A, Adult 07/10/2001,01/09/2001 Influenza Vaccine, Quadrivalent, Adjuvanted 12/31,01/20/2021 Influenza, High-dose, Split Virus, Trivalent, Injectable, preservative free 02/21/2024 Influenza, seasonal, injectable, preservative fr ee 01/09/2020,02/05/2016 Influenza, trivalent, adjuvanted 12/27/2016 Pneumococcal 20-nishant Conj Vaccine 01/11/2023 Pneumococcal Polysaccharide PPV23 02/05/2016 Rsv, Bivalent, Protein Subun it Rsvpref, Diluent Reconstituted, 0.5mL, PF 04/21/2023 Family History Medical History Relation Name Comments [...] Sister 1 J Alive Sister 2 Jojo Wrayley Alive Social History Tobacco Use Types Packs/Day Years Used Date Smoking Tobacco: Former Cigarettes 1 35.6 0 01/20/1956 - 09/14/1991 Passive Smoke Exposure: Past Smokeless Tobacco: Never Tobacco Cessation:Counseling Given: Not Answered Alcohol Use Standard Drinks/Week Comments No 0 (1 standard drink = 0.6 oz pur e alcohol) PHQ-2 Answer Date Recorded Patient Health Questionnaire-2 Score 0 09/13/2024 PHQ-9 Answer Date Recorded Patient Health Questionnaire-9 Score 0 09/13/2024 PHQ-2A Answer Date Recorded Depression Risk 0 01/05/2024 Comments No Sex and Gender Information Value Date Recorded Sex Assigned at Not on file Legal Sex Female 7:40 PM EDT Gender Identity Not on file Sexual Orientation Not on file Last Filed Vital Signs Vital Sign Reading Time Taken Comments Blood Pressure 147/72 12/07/2024 8:39 AM EDT Pulse 82 12/07/2024 8:39 AM EDT Temperature 36.7 C (98.1 F) 01/05/2024 10:06 AM EDT Respiratory Rate 16 12/07/2024 8:39 AM EDT Oxygen Saturation 95% 12/07/2024 8:39 AM EDT Inhaled Oxygen Concentration - - Weight 87.1 kg (192 lb) 12/07/2024 8:39 AM EDT Height 152.4 cm (5') 12/07/2024 8:39 AM EDT Body Mass Index 37.5 12/07/2024 8:39 AM EDT Plan of Treatment Upcoming Encounters Date Type Department Care Team (Late st Contact Info) Description 04/19/2025 9:20 AM EST Office Visit [facility] [address] [place] [phone] Saul Read MD [address] [place] [phone] Health Maintenance Due Date Last Done Comments UKY-Bone Density Scan 1940 UKY-Medicare Annual Wellness (AWV) 1940 UKY-Infant/Child/Adol SDOH Screenings 1940 UKY- SDOH Screenings 1958 UKY-Adult SDOH Screenings 1958 UKY-DTaP,Tdap,and Td Vaccines (1 - Tdap) 09/25/1959 UKY-Zoster Vaccines (1 of 2) 1990 [id number] Vaccine (8 - Pfizer risk season) 2024 02/21/2024, 02/01/2023, 01/13/2022, Additional history exists UKY-Influenza Vaccine (#1) 12/31/202402/20, 01/11/2023, 01/20/2021, Additional history exists UKY-Depression Screening 09/13/2025 025, 09/13/2024, 01/05/2024 UKY-Hepatitis A Vaccines Aged Out 07/10/2001, 12/31 No longer eligible based on patient's age to complete this topic UKY-Pneumococcal Vaccine: 50+ Years Completed 01/11/2023, 02/05/2016 UKY-RSV Vaccine: 60+ Years or Completed 04/21/2023 UKY-Obesity Intervention Completed 025, 09/13/2024, 05/17/2024, Additional history exists HPV Vaccines Aged Out [...] patient's age to complete this topic Insurance [id number] MEDICARE Care Teams Air Operations Manager Relationship Specialty Start Date End Date Antno Butts MD [address] [place] [address] #1 #1 [place] [phone] [facility] - General 09/12/20
== END 2025-02-25 23:59 | disposition home or self-care (01) ==
LOC: RT 14:33
PROVIDERS: PCP Nurse Practitioner Family; Visit Provider Internal Medicine Pulmonary Disease
DX: R94.2 Abnormal results of pulmonary function studies (principal); R06.09 Other forms of dyspnea; R06.02 Shortness of breath
CPT/HCPCS: 94060; 94618; 94640

== ENCOUNTER 2025-04-13 13:12 | Outpatient (CLI) | payer MEDICARE, SELFPAY ==
--- OUTSIDE RECORDS SUMMARY | 2025-04-13 13:17 | XMS_ITS | Encounter Summary ---
Author Organization [facility] Address [address] [place] [phone] Care Team Providers Care Supervisor Boilermaking Shop Name Role Phone Provider, No Known Primary Care Provider Unavail able Encounter Details Date Type Department Care Team ([facility] st Contact Info) Description 02/01/[address] [facility] CARDIOLOGY [address] [facility] [address] [place] [phone] Magdalene Garcia MD [address] [facility] [address] [place] [address] Social History Tobacco Use Types Packs/Day Years [...] on filedocumented in this encounter Care Teams Supervisor Boilermaking Shop Relationship Specialty Start Date End Date Provider, [place] [address] PCP - General 10/07/22 documented as of this encounter
--- OUTSIDE RECORDS SUMMARY | 2025-04-13 13:17 | XMS_ITS | Clinical Summary ---
Author Organization [facility] Address [address] [facility] [place] [address] Care Team Providers Care Faculty Head Name Role Phone Anton Butts MD Primary Care Provider [phone] Allergies Active Allergy Reactions Criticality Noted Date [...] Encounters Date Type Department Care Team Description 04/12/2025 Travel from Last 3 Months Immunizations Immunization [...] Description 04/19/2025 9:20 AM EST Office Visit [facility] [address] [place] [address] Saul Read MD [address] [place] [phone] Health Maintenance Due Date Last Done Comments UKY-Bone Density Scan 1940 UKY-Medicare Annual Wellness (AWV) 1940 UKY-Infant/Child/Adol SDOH Screenings 1940 UKY- SDOH Screenings 1958 UKY-Adult SDOH Screenings 1958 UKY-DTaP,Tdap,and Td Vaccines (1 - Tdap) 09/25/1959 UKY-Zoster Vaccines (1 of 2) 1990 [id number] Vaccine (8 - season) 2024 02/21/2024, 02/01/2023, [...] patient's age to complete this topic Insurance [facility] MEDICARE Care Teams Faculty Head Relationship Specialty Start Date End Date Anton Butts MD [address] [place] [address] #1 [address]1 [place] [address] PCP - General 09/12/20
--- OUTSIDE RECORDS SUMMARY | 2025-04-13 13:17 | XMS_ITS | Clinical Summary ---
Author Organization [facility] Address [address] [place] [address] Care Team Providers Care Medium Cycle Salesperson Name Role Phone Provider, No Known Primary [...] Transaminitis 10/30/2019 Coronary artery disease invo lving [place] coronary artery of [place] heart without angina pectoris 11/05/2015 Hyperlipemia 11/05/2015 CAD (coronary artery disease) 10/29/2015 Overview (10/29/2015): a. Inferior [place], October 1998. b. Left heart catheterization with [...] Insurance [employer] PPO Care Teams Medium Cycle Salesperson Relationship Specialty Start Date End Date Provider, No Known [facility] [place] [address] PCP - General 10/07/22
--- OUTSIDE RECORDS SUMMARY | 2025-04-13 13:17 | XMS_ITS | Encounter Summary ---
Author Organization [facility] Address [address] [place] [address] Care Team Providers Care Community Fundraiser Name Role Phone Anton Butts MD Primary Care Provider [phone] Encounter Details Date Type Department Care Team (Latest Contact Info) Description 04/12/2025 Travel Social History Tobacco Use Types Packs/Day [...] Description 04/19/2025 9:20 AM EST Office Visit [facility] [address] [place] [phone] Saul Read MD [address] [place] [phone] documented as of this encounter Visit Diagnoses Not on filedocumented in this encounter Additional Health Concerns Assessment Noted Time PHQ-9 Depression Total Score: 0 09/14/19 7:37 AM EDT A fall risk assessment has been complete d for the patient 09/13/2024 7:39 AM EDT A Body Mass Index follow-up plan has been documented for the patient 12/07/2024 10:33 AM EDT documented as of this encounter Care Teams Community Fundraiser Relationship Specialty Start Date End Date Anton Butts MD [address] [place] [address] #1 #1 [place] [address] PCP - General 09/12/20 documented as of this encounter
[2025-04-13 13:24] LABS: Microscopic, Urine URINE MICROSCOPIC (MICROSCOPIC)
[2025-04-13 13:38] LABS: Hematocrit 34.8 % (37.0-47.0); Hemoglobin 11.3 g/dL (12.2-16.2); Mean Corpuscular HGB Conc 32.5 g/dL (31.8-35.4); Mean Corpuscular Hemoglobin 29.8 pg (27.0-31.2); Mean Corpuscular Volume 91.8 fl (81-99); Nucleated Red Blood Cells % 0 %; Platelet Count 348 K/mm3 (142-424); Red Blood Count 3.79 M/mm3 (4.20-5.40); Red Cell Distribution Width-SD 43.6 fL; White Blood Count 11.9 K/mm3 (4.8-10.8)
[2025-04-13 13:55] LABS: Bilirubin,Urine Negative (Negative); Color,Urine YELLOW (Yellow); Glucose,Urine (UA) Negative (Negative); Ketones,Urine Negative (Negative); Leukocyte Esterase,Urine Negative (Negative); PH,Urine 6.0 (5.0-8.5); Protein,Urine Negative (Negative); Specific Gravity, Urine 1.015 (1.005-1.030); Urobilinogen,Urine 0.2 EU/dl (0.2)
[2025-04-13 14:15] LABS: Albumin Level 4.0 g/dl (3.5-5.0); Anion Gap 18.0 mEq/L (5-15); Blood Urea Nitrogen 60 mg/dl (7-17); Calcium 9.1 mg/dl (8.4-10.2); Carbon Dioxide 27 mmol/L (22.0-30.0); Chloride 95 mmol/L (98-107); Creatinine,Serum 2.50 mg/dl (0.52-1.04); Estimated Glomerular Filt Rate 18 ml/min (>60); GFR (African American) 22 ML/MIN (>60); Glucose 106 mg/dl (74-100); Phosphorous 4.8 mg/dl (2.5-4.5); Potassium 4.0 mmoL/L (3.5-5.1); Sodium 136 mmol/L (136-145)
[2025-04-13 14:22] LABS: Bacteria,Urine Trace /lpf
[2025-04-13 14:31] LABS: 25-OH Vitamin D, Total 80.5 ng/mL (30-100)
== END 2025-04-13 23:59 | disposition home or self-care (01) ==
LOC: LAB 13:15
PROVIDERS: PCP Nurse Practitioner Family; Visit Provider Nurse Practitioner
DX: N18.4 Chronic kidney disease, stage 4 (severe) (principal)
CPT/HCPCS: 36415; 80069; 81001; 82306; 82570; 83970; 84156; 85027